=== PATIENT | male | born 1945 | race Caucasian/White ===

== ENCOUNTER 2018-07-23 08:54 | Outpatient (REF) | payer SELFPAY ==
[2018-07-23 09:56] LABS: Abs Immature Grans 0.04 k/cumm (0.0-0.09); Absolute Basophil Count 0.06 k/cumm (0.0-0.2); Absolute Eosinophil Count 0.33 k/cumm (0.0-0.7); Absolute Lymphocyte Count 1.45 k/cumm (1.2-3.4); Absolute Monocyte Count 0.99 k/cumm (0.11-0.7); Basophils % 0.5; HCT 44.2 % (40.0-50.0); Immature Grans % 0.4; Lymphocytes % 13.1; Mean Corp. HGB Concentration 31.7 g/dL (32.0-36.0); Mean Corpuscular Volume 91.5 fL (80-95); Mean Platelet Volume 10.8 fL (8.0-11.0); Monocytes % 8.9; Neutrophils % 74.1; Platelet Count 180 x1000/uL (130-400); RBC 4.83 m/cumm (4.50-6.00); RBC Distribution Width 15.1 % (11.8-14.1); White Blood Cell Count 11.07 k/cumm (4.4-10.8)
[2018-07-23 09:58] LABS: Anion Gap 9.8 mmol/L (3-11); BUN 33 mg/dL (7-18); CO2 29.2 mmol/L (21.0-32.0); CREATININE 1.69 mg/dL (0.70-1.30); Calcium 9.2 mg/dL (8.5-10.1); Chloride 101 mmol/L (98-107); Estimated GFR 40.32 (mL/min/1.73m2); Glucose 261 mg/dL (70-100); Potassium 4.2 mmol/L (3.5-5.1); Sodium 140 mmol/L (136-145)
== END 2018-07-23 09:14 ==
LOC: LBN 08:54
PROVIDERS: Visit Provider Family Medicine
DX: E11.9 Type 2 diabetes mellitus without complications (principal); I10 Essential (primary) hypertension; F33.9 Major depressive disorder, recurrent, unspecified; N18.9 Chronic kidney disease, unspecified
CPT/HCPCS: 80048; 85025

== ENCOUNTER 2018-09-21 10:57 | Inpatient (IN) | payer OTHER, SELFPAY ==
[2018-09-21] VITALS (13 sets, daily range): BP systolic 127–165; BP diastolic 40–63; PULSE 56–75; RESP 14–27; TEMP 36.2–36.6; O2SAT 88–97
[2018-09-21] MEDS: Normal Saline 1,000 ML 125 ML IV (11:05)
[2018-09-21] MEDS: Ondansetron 4 MG/2 ML VIAL (11:20)
--- NOTE | 2018-09-21 11:28 | DI.CT_ITS ---
SYMPTOMS/DIAGNOSIS: BLOODY DIARRHEA WITH NAUSEA/VOMITING CT OF THE ABDOMEN AND PELVIS: Images were performed after oral contrast. Comparison is made with July,. There is wall thickening of the distal transverse colon through mid descending colon. The findings could represent ischemic versus infectious or inflammatory colitis. There is no evidence of obstruction. The appendix appears normal. There is no small bowel dilatation or inflammation. The lung bases show minimal dependent changes. Stones are seen in the dependent portion of the gallbladder. The spleen, adrenals and kidneys are unremarkable. The pancreas appears atrophic. Aorta is normal in diameter and shows calcification. The bladder is unremarkable. There is fat within both inguinal canals. There is a small umbilical hernia containing fat. IMPRESSION: Thickening of the wall of the mid transverse through proximal descending colon consistent with colitis. Cholelithiasis is noted. There is no evidence of acute cholecystitis.
--- NOTE | 2018-09-21 11:32 | W.ED.GENAD ---
Discharge Plan Disposition Patient Disposition: [facility] INPATIENT Condition: Improving Discharge Details Chief Complaint: Nausea/Vomit/Diar Reason For Visit: COLITIS Admit Date/Time: 09/21/18 18:14 Admit Provider: Miguel Melendrez Attending Provider: Miguel Melendrez Primary Care Provider: [facility] ED Provider: Tammy Peres Discharge Data Discharge Date/Time-TO BE ENTERED AT DEPARTURE: 09/21/18 19:23 Medical Decision Making <Edil Schmidt NP - Last Filed: 09/23/18 09:28> History and presentation looks allot like worsening GI bleed. Differential is broad. Will Start IV, environmental monitoring technician, Protonix, and fluids. Will CT abdomen and labs for diagnostics. Nurse reported patient had moderate to large pure bloody stool. He c/o pain, will provide morphine for the pain. Will cover elevated glucose over 300 with 10 units of regular insulin SQ. Labs are remarkable for elevated WBC 18 with shift, NA 132, Glucose 382, Type and screen complete. BUN 48 and Creatnine 1.63 is at baseline. Pt remains hemodynamically stable with most recent B/P 127/40 and pulse of 60. CT scan is pending. Will call [place] for expectance for GI bleed. ECG Data Attestation: I personally reviewed and interpreted this ECG (s) as follows: Interpretation: No acute ST changes. Low voltage. Dr. Segovia confirmed. <WAGNER Huizar - Last Filed: 09/21/18 19:34> Patient was transitioned into my care the patient is being evaluated for nausea, vomiting times 1 week. Laboratory evaluation and initial care was completed by Wesley Schmidt NP. At the time of our patient handoff, CT was pending. I discussed the symptoms with the patient, he is endorsing abdominal cramping. He was given opioids by Wesley Cobos NP which the patient reports he has had little effect on. He has had a few large bloody bowel movements while here. These have been quite loose. No vomiting since being here, patient did receive Protonix and Zofran when he initially arrived. Continues to receive IV Protonix and IV saline. Patient has history of type 2 diabetes and she reports been difficult to control over recent months. He reports he has been taking his Lantus twice daily as prescribed. Despite this, he is reporting that his fasting glucose has been in the high 300s to low 400s frequently. Also has history of acute kidney injury, chronic use of opioids, diastolic dysfunction, exertional dyspnea, central sleep apnea, ischemic cardiomyopathy, CHF, [place]. Patient is on Plavix. Patient is currently endorsing diffuse abdominal cramping. No nausea. CT reviewed by radiologist. They report that the liver is unremarkable no mass. Gallbladder significant for calcified stone within the gallbladder. No very cholecystic inflammation. Pancreas is unremarkable no ductal dilation. Spleen significant for calcified granuloma within the spleen. Adrenals normal no mass. Kidneys and ureters are unremarkable no stones, no hydronephrosis. Stomach and bowel significant for wall thickening involving the distal transverse colon, splenic flexure and proximal portion of the descending colon with mild pericolonic inflammation and trace fluid within the left lateral pericolic gutter consistent with colitis. No bowel obstruction. Unremarkable small bowel. No evidence of appendicitis. Bladder is unremarkable as visualized. Reproductive unremarkable as visualized. Intraperitoneal space is without free air. No acute fracture. Soft tissues are unremarkable. Vasculature significant for moderate atherosclerosis of the abdominal aorta and iliac arteries. No aneurysm. No enlarged lymph nodes Discussed these findings with the patient and his family. The patient's vital signs have been stable here, no orthostatic hypotension noted, and hemoglobin is within normal limits, patient does endorse that he is been feeling dizzy whenever up and ambulatory. He appears quite peril and fatigued. Continues to have a large bloody bowel movements. I feel that admission is appropriate at this time for the patient. [facility], will consult with them as he is requesting that he not be transferred, patient prefers to stay in this facility secondary to close proximity to family. [facility] staff [facility] who advised that the patient secondary to insurance would cover and that he would not need to be transferred to their facility. We did advise that he would need to cover the additional cost that would not be covered by insurance. I discussed this with the patient and his family voiced understanding and wished to remain here Consulted with hospitalist who agrees to admission. He will evaluate the patient. Patient had another bowel movement, we will send this for lactoferrin, C. difficile and Giardia. 6 1 patient was given 4 mg of Zofran which helped with his recurrent nausea. Resting comfortably at this time. Patient admitted to medical surgical unit with Dr. Melendrez is admitting physician HPI <Edil Schmidt NP - Last Filed: 09/23/18 09:28> General Date/Time Provider Initiated Documentation: 09/21/18 11:28. Information obtained by: patient and family. History of Present Illness 73 year old M presents to the emergency department with the chief complaint of bloody diarrhea, described as mild, HPI Narrative: 73 y/o male here with his family with c/o abdominal pain, dizziness, N/V and intermittent bloody diarrhea for last couple weeks. He initially thought he had a cold. His said he started with pharyngitis four weeks ago. He is a and gets his healthcare over at the [facility]. Has missed last couple appointments because he has not feel well. He tells me he feels like shit today. Denies any blood in his vomits but last bloody stool was last night. He has been having to get up multiple times in the night for BM's. He denies CP to me but told the nurse he had nitro this am which he takes all the time. He does tell me he had heart burn this am. Related Data Home Medications Medication Instructions Recorded Confirmed aspirin [Aspir-81] 81 mg PO DAILY 01/08/14 09/21/18 budesonide-formoterol [Symbicort] 2 inh INHALATION BID 01/08/14 09/21/18 insulin glargine [Lantus U-100 45 units IJ HS 01/08/14 09/21/18 Insulin] isosorbide mononitrate [Imdur] 120 mg PO DAILY 01/08/14 09/21/18 potassium chloride 40 meq PO BID 01/08/14 09/21/18 promethazine [Phenadoz] 25 mg MO Q6H PRN #10 supp 01/08/14 09/21/18 tiotropium bromide [Spiriva with 18 mcg INHALATION DAILY 01/08/14 09/21/18 HandiHaler] trazodone 100 mg PO HS 01/08/14 09/21/18 allopurinol 100 mg PO DAILY 10/16/16 09/21/18 insulin glargine [Lantus U-100 45 unit SQ .QAM 10/16/16 09/21/18 Insulin] nitroglycerin 4.9 gm TRANSLINGUAL PRN PRN 10/16/16 09/21/18 atorvastatin [Lipitor] 80 mg PO QPM 09/07/17 09/21/18 bupropion HCl 100 mg PO DAILY 09/07/17 09/21/18 duloxetine [Cymbalta] 60 mg PO BID 09/07/17 09/21/18 losartan 50 mg PO DAILY 09/07/17 09/21/18 sennosides 8.6 mg PO BID PRN PRN 09/07/17 09/21/18 terazosin 4 mg PO HS 09/07/17 09/21/18 clopidogrel [Plavix] 75 mg PO DAILY 10/07/17 09/21/18 spironolactone 25 mg PO DAILY 10/07/17 09/21/18 torsemide 60 mg PO BID 10/07/17 09/21/18 carvedilol 3.125 mg PO BID #60 tab 10/12/17 09/21/18 oxycodone-acetaminophen [Percocet] 10 mg PO QID 09/21/18 09/21/18 Previous Rx's Medication Instructions Recorded promethazine [Phenadoz] 25 mg MO Q6H PRN #10 supp 01/08/14 carvedilol 3.125 mg PO BID #60 tab 10/12/17 Allergies Allergy/AdvReac Type Severity Reaction Status Date / Time Penicillins Allergy Anaphylaxsi Unverified 09/21/18 11:33 s metoprolol AdvReac Very low Unverified 09/21/18 11:33 pulse Review of Systems <Edil Schmidt NP - Last Filed: 09/23/18 09:28> Eyes Reports system reviewed and no additional complaints, except as docu ENT Reports system reviewed and no additional complaints, except as docu and Reports dizziness Cardiovascular Reports lightheadedness and Reports other (heart burn) Respiratory Reports system reviewed and no additional complaints, except as docu Gastrointestinal Reports abdominal pain, Reports hematochezia, Reports heartburn, Reports diarrhea, Reports nausea and Reports vomiting Genitourinary Reports hematuria Musculoskeletal Reports system reviewed and no additional complaints, except as docu Integumentary/Breasts Reports sores Neurologic Reports dizziness Hematologic/Lymphatic Reports as per HPI Exam <Edil Schmidt NP - Last Filed: 09/23/18 09:28> Const General: cooperative, comfortable, no acute distress and ill appearing (pale) acutely Nutritional Appearance: obese Orientation: alert, awake and oriented x3 HENMT Head: atraumatic Ears: hearing grossly normal bilaterally and external ears normal General nose exam: external nose normal and nares normal Mouth: lip normal, tongue normal and moist mucous membranes abnormal (dry) Eyes General: appearance normal, both eyes and all related structures Neck Neck: full ROM and no lymphadenopathy Resp Effort & Inspection: normal respiratory effort Auscultation: clear to auscultation bilaterally Cardio Rate: regular rate Rhythm: regular rhythm Heart Sounds: S1 normal, S2 normal and no murmurs GI Inspection: large pannus and obesity Palpation: soft and tender in the LUQ and in the RUQ Auscultation: normal bowel sounds Back/Spine/Pelvis Back: no CVA tenderness Thoracic/Lumbar Spine: thoracic and lumbar spine normal to inspection Skin General skin exam: no rashes or lesions noted Neuro General: alert, awake and oriented x3 Extrem General: normal to inspection, full ROM and normal capillary refill Psych Appearance: grossly normal Speech and Movement: speech and movement normal Mood: congruent mood Affect: normal affect Attitude: cooperative Thought Process: normal Thought Content: normal Insight: insight good Judgment: judgment good Sign Out <Edil Schmidt NP - Last Filed: 09/23/18 09:28> Sign Out Data: Sign Out Comment: Discussed with Tammy LIRA she agrees to disposition patient. Last updated by Edil Schmidt NP at 09/21/18 16:23
[2018-09-21] MEDS: Pantoprazole 40 MG VIAL 80 MG IVP (11:40)
[2018-09-21] MEDS: Omnipaque 350 MG/ML 50 ML BTL IJ (11:47)
[2018-09-21] MEDS: Breeza Beverage 473 ML BTL PO (11:48)
--- NOTE | 2018-09-21 11:51 | ED.GENADUL_ITS ---
Discharge Plan Disposition Patient Disposition: [facility] INPATIENT Condition: Improving Discharge Details Chief Complaint: Nausea/Vomit/Diar Reason For Visit: COLITIS Admit Date/Time: 09/21/18 18:14 Admit Provider: Miguel Melendrez Attending Provider: Miguel Melendrez Primary Care Provider: [facility] ED Provider: Tammy Peres Discharge Data Discharge Date/Time-TO BE ENTERED AT DEPARTURE: 09/21/18 19:23 Medical Decision Making <Edil Schmidt NP - Last Filed: 09/23/18 09:28> History and presentation looks allot like worsening GI bleed. Differential is broad. Will Start IV, monitoring specialist, Protonix, and fluids. Will CT abdomen and labs for diagnostics. Nurse reported patient had moderate to large pure bloody stool. He c/o pain, will provide morphine for the pain. Will cover elevated glucose over 300 with 10 units of regular insulin SQ. Labs are remarkable for elevated WBC 18 with shift, NA 132, Glucose 382, Type and screen complete. BUN 48 and Creatnine 1.63 is at baseline. Pt remains hemodynamically stable with most recent B/P 127/40 and pulse of 60. CT scan is pending. Will call [place] for expectance for GI bleed. ECG Data Attestation: I personally reviewed and interpreted this ECG (s) as follows: Interpretation: No acute ST changes. Low voltage. Dr. Segovia confirmed. <WAGNER Huizar - Last Filed: 09/21/18 19:34> Patient was transitioned into my care the patient is being evaluated for nausea , vomiting times 1 week. Laboratory evaluation and initial care was completed by Wesley Schmidt NP. At the time of our patient handoff, CT was pending. I discussed the symptoms with the patient, he is endorsing abdominal cramping. He was given opioids by Wesley Cobos NP which the patient reports he has had little effect on. He has had a few large bloody bowel movements while here. These have been quite loose. No vomiting since being here, patient did receive Protonix and Zofran when he initially arrived. Continues to receive IV Protonix and IV saline. Patient has history of type 2 diabetes and she reports been difficult to control over recent months. He reports he has been taking his Lantus twice daily as prescribed. Despite this, he is reporting that his fasting glucose has been in the high 300s to low 400s frequently. Also has history of acute kidney injury, chronic use of opioids, diastolic dysfunction, exertional dyspnea , central sleep apnea, ischemic cardiomyopathy, CHF, [place]. Patient is on Plavix. Patient is currently endorsing diffuse abdominal cramping. No nausea. CT reviewed by radiologist. They report that the liver is unremarkable no mass. Gallbladder significant for calcified stone within the gallbladder. No very cholecystic inflammation. Pancreas is unremarkable no ductal dilation. Spleen significant for calcified granuloma within the spleen. Adrenals normal no mass. Kidneys and ureters are unremarkable no stones, no hydronephrosis. Stomach and bowel significant for wall thickening involving the distal transverse colon, splenic flexure and proximal portion of the descending colon with mild pericolonic inflammation and trace fluid within the left lateral pericolic gutter consistent with colitis. No bowel obstruction. Unremarkable small bowel. No evidence of appendicitis. Bladder is unremarkable as visualized. Reproductive unremarkable as visualized. Intraperitoneal space is without free air. No acute fracture. Soft tissues are unremarkable. Vasculature significant for moderate atherosclerosis of the abdominal aorta and iliac arteries. No aneurysm. No enlarged lymph nodes Discussed these findings with the patient and his family. The patient's vital signs have been stable here, no orthostatic hypotension noted, and hemoglobin is within normal limits, patient does endorse that he is been feeling dizzy whenever up and ambulatory. He appears quite peril and fatigued. Continues to have a large bloody bowel movements. I feel that admission is appropriate at this time for the patient. As [facility], will consult with them as he is requesting that he not be transferred, patient prefers to stay in this facility secondary to close proximity to family. [employer] staff did contact [facility] who advised that the patient secondary to insurance would cover and that he would not need to be transferred to their facility. We did advise that he would need to cover the additional cost that would not be covered by insurance. I discussed this with the patient and his family voiced understanding and wished to remain here Consulted with hospitalist who agrees to admission. He will evaluate the patient. Patient had another bowel movement, we will send this for lactoferrin, C. difficile and Giardia. 6 1 patient was given 4 mg of Zofran which helped with his recurrent nausea. Resting comfortably at this time. Patient admitted to medical surgical unit with Dr. Melendrez is admitting physician HPI <Edil Schmidt NP - Last Filed: 09/23/18 09:28> General Date/Time Provider Initiated Documentation: 09/21/18 11:28 . Information obtained by: patient and family . History of Present Illness 73 year old M presents to the emergency department with the chief complaint of bloody diarrhea, described as mild, HPI Narrative: 73 y/o male here with his family with c/o abdominal pain, dizziness, N/V and intermittent bloody diarrhea for last couple weeks. He initially thought he had a cold. His said he started with pharyngitis four weeks ago. He is a and gets his healthcare [facility] at the [facility]. Has missed last couple appointments because he has not feel well. He tells me he feels like shit today. Denies any blood in his vomits but last bloody stool was last night. He has been having to get up multiple times in the night for BM' s. He denies CP to me but told the nurse he had nitro this am which he takes all the time. He does tell me he had heart burn this am. Related Data Home Medications Medication Instructions Recorded Confirmed aspirin [Aspir-81] 81 mg PO DAILY 01/08/14 09/21/18 budesonide-formoterol [Symbicort] 2 inh INHALATION BID 01/08/14 09/21/18 insulin glargine [Lantus U-100 45 units IJ HS 01/08/14 09/21/18 Insulin] isosorbide mononitrate [Imdur] 120 mg PO DAILY 01/08/14 09/21/18 potassium chloride 40 meq PO BID 01/08/14 09/21/18 promethazine [Phenadoz] 25 mg RI Q6H PRN #10 supp 01/08/14 09/21/18 tiotropium bromide [Spiriva with 18 mcg INHALATION DAILY 01/08/14 09/21/18 HandiHaler] trazodone 100 mg PO HS 01/08/14 09/21/18 allopurinol 100 mg PO DAILY 10/16/16 09/21/18 insulin glargine [Lantus U-100 45 unit SQ .QAM 10/16/16 09/21/18 Insulin] nitroglycerin 4.9 gm TRANSLINGUAL PRN PRN 10/16/16 09/21/18 atorvastatin [Lipitor] 80 mg PO QPM 09/07/17 09/21/18 bupropion HCl 100 mg PO DAILY 09/07/17 09/21/18 duloxetine [Cymbalta] 60 mg PO BID 09/07/17 09/21/18 losartan 50 mg PO DAILY 09/07/17 09/21/18 sennosides 8.6 mg PO BID PRN PRN 09/07/17 09/21/18 terazosin 4 mg PO HS 09/07/17 09/21/18 clopidogrel [Plavix] 75 mg PO DAILY 10/07/17 09/21/18 spironolactone 25 mg PO DAILY 10/07/17 09/21/18 torsemide 60 mg PO BID 10/07/17 09/21/18 carvedilol 3.125 mg PO BID #60 tab 10/12/17 09/21/18 oxycodone-acetaminophen [Percocet] 10 mg PO QID 09/21/18 09/21/18 Previous Rx's Medication Instructions Recorded promethazine [Phenadoz] 25 mg RI Q6H PRN #10 supp 01/08/14 carvedilol 3.125 mg PO BID #60 tab 10/12/17 Allergies Allergy/AdvReac Type Severity Reaction Status Date / Time Penicillins Allergy Anaphylaxsi Unverified 09/21/18 11:33 s metoprolol AdvReac Very low Unverified 09/21/18 11:33 pulse Review of Systems <Edil Schmidt NP - Last Filed: 09/23/18 09:28> Eyes Reports system reviewed and no additional complaints, except as docu ENT Reports system reviewed and no additional complaints, except as docu and Reports dizziness Cardiovascular Reports lightheadedness and Reports other (heart burn) Respiratory Reports system reviewed and no additional complaints, except as docu Gastrointestinal Reports abdominal pain, Reports hematochezia, Reports heartburn, Reports diarrhea, Reports nausea and Reports vomiting Genitourinary Reports hematuria Musculoskeletal Reports system reviewed and no additional complaints, except as docu Integumentary/Breasts Reports sores Neurologic Reports dizziness Hematologic/Lymphatic Reports as per HPI Exam <Edil Schmidt NP - Last Filed: 09/23/18 09:28> Const General: cooperative, comfortable, no acute distress and ill appearing (pale) acutely Nutritional Appearance: obese Orientation: alert, awake and oriented x3 HENMT Head: atraumatic Ears: hearing grossly normal bilaterally and external ears normal General nose exam: external nose normal and nares normal Mouth: lip normal, tongue normal and moist mucous membranes abnormal (dry) Eyes General: appearance normal, both eyes and all related structures Neck Neck: full ROM and no lymphadenopathy Resp Effort & Inspection: normal respiratory effort Auscultation: clear to auscultation bilaterally Cardio Rate: regular rate Rhythm: regular rhythm Heart Sounds: S1 normal, S2 normal and no murmurs GI Inspection: large pannus and obesity Palpation: soft and tender in the LUQ and in the RUQ Auscultation: normal bowel sounds Back/Spine/Pelvis Back: no CVA tenderness Thoracic/Lumbar Spine: thoracic and lumbar spine normal to inspection Skin General skin exam: no rashes or lesions noted Neuro General: alert, awake and oriented x3 Extrem General: normal to inspection, full ROM and normal capillary refill Psych Appearance: grossly normal Speech and Movement: speech and movement normal Mood: congruent mood Affect: normal affect Attitude: cooperative Thought Process: normal Thought Content: normal Insight: insight good Judgment: judgment good Sign Out <Edil Schmidt NP - Last Filed: 09/23/18 09:28> Sign Out Data: Sign Out Comment: Discussed with Tammy LIRA she agrees to disposition patient. Last updated by Edil Schmidt NP at 09/21/18 16:23
[2018-09-21 11:53] LABS: Abs Immature Grans 0.08 k/cumm (0.0-0.09); Absolute Basophil Count 0.04 k/cumm (0.0-0.2); Absolute Eosinophil Count 0.04 k/cumm (0.0-0.7); Absolute Lymphocyte Count 1.12 k/cumm (1.2-3.4); Absolute Monocyte Count 1.06 k/cumm (0.11-0.7); Basophils % 0.2; Eosinophils % 0.2; HCT 45.6 % (40.0-50.0); HGB 14.6 g/dL (13.5-17.5); Immature Grans % 0.4; Lymphocytes % 6.2; Mean Corpuscular Hemoglobin 29.1 pg (27.0-33.0); Mean Corpuscular Volume 90.8 fL (80-95); Mean Platelet Volume 10.9 fL (8.0-11.0); Monocytes % 5.9; Neutrophils % 87.1; Platelet Count 192 x1000/uL (130-400); RBC 5.02 m/cumm (4.50-6.00); RBC Distribution Width 14.4 % (11.8-14.1); White Blood Cell Count 18.02 k/cumm (4.4-10.8)
[2018-09-21 12:19] LABS: ALT 19 U/L (12-78); AST 11 U/L (15-37); Albumin 2.8 g/dL (3.4-5.0); Alkaline Phosphatase 102 U/L (46-116); Anion Gap 7.4 mmol/L (3-11); BUN 48 mg/dL (7-18); Bilirubin, Total 0.4 mg/dL (0.2-1.0); CO2 30.6 mmol/L (21.0-32.0); CREATININE 1.63 mg/dL (0.70-1.30); Calcium 9.4 mg/dL (8.5-10.1); Chloride 94 mmol/L (98-107); Estimated GFR 41.92 (mL/min/1.73m2); Glucose 382 mg/dL (70-100); Magnesium 2.1 mg/dL (1.8-2.4); Potassium 4.4 mmol/L (3.5-5.1); Sodium 132 mmol/L (136-145); Total Protein 7.7 g/dL (6.4-8.2); Troponin I 0.05 ng/mL (0.00-0.06)
[2018-09-21] MEDS: PANTOPRAZOLE 80 MG in Normal Saline 100 ML 10 MG IV (12:37)
[2018-09-21] MEDS: Insulin REGULAR-Human 100 UNITS/ML UNIT 10 UNITS SC (14:52)
[2018-09-21] MEDS: MORPHine 10 MG/ML VIAL 4 MG IVP (14:53)
[2018-09-21] MEDS: HYDROmorphone 2 MG/ML VIAL 1 MG IVP ×2 (16:20→19:05)
[2018-09-21 16:29] LABS: Lipase 56 U/L (73-393)
--- NOTE | 2018-09-21 16:30 | DI.VRAD_ITS ---
EXAM: CT Abdomen and Pelvis Without Intravenous Contrast EXAM DATE/TIME: 09/21/2018 4:00 PM CLINICAL HISTORY: 73 years old, male; Signs and symptoms; Other: Bloody diarrhea TECHNIQUE: Axial computed tomography images of the abdomen and pelvis without intravenous contrast. Coronal and sagittal reformatted images were created and reviewed. COMPARISON: CT ABD PELVIS WO CONTRAST 08/22/2015 10:33 PM FINDINGS: Limitations: This examination is limited given the lack of IV contrast. Lower thorax: Dependent changes within the lung bases. ABDOMEN: Liver: Unremarkable. No mass. Gallbladder and bile ducts: Calcified stone within the gallbladder. No pericholecystic inflammation. Pancreas: Unremarkable. No ductal dilation. Spleen: Calcified granuloma within the spleen. Adrenals: Normal. No mass. Kidneys and ureters: Unremarkable. No stones. No hydronephrosis. Stomach and bowel: Wall thickening involving the distal transverse colon, splenic flexure and proximal portion of the descending colon with mild pericolonic inflammation and trace fluid within the left lateral paracolic gutter consistent with colitis. No pneumatosis. No bowel obstruction. Unremarkable small bowel. Appendix: No evidence of appendicitis. PELVIS: Bladder: Unremarkable as visualized. Reproductive: Unremarkable as visualized. ABDOMEN and PELVIS: Intraperitoneal space: No free intraperitoneal air. Bones/joints: No acute fracture. Soft tissues: Unremarkable. Vasculature: Moderate atherosclerosis of the abdominal aorta and iliac arteries. No aneurysm. Lymph nodes: No enlarged lymph nodes. IMPRESSION: 1. Colitis involving the distal portion of the transverse colon, splenic flexure and proximal portion of the descending colon. 2. Cholelithiasis. Dictated and Authenticated by: Zachery Batista MD. Ordering:QUINCY DE LA TORRE MD
[2018-09-21] MEDS: Ondansetron 4 MG/2 ML VIAL IVP (18:16)
--- NOTE | 2018-09-21 18:33 | W.PM.HP.N ---
Date of service: 09/21/18 Time of Service: 18:33 Assessment and Plan (1) Colitis: Current visit: Yes Status: Acute Colitis. Main differential is infectious versus inflammatory. With no prior episodes and acute onset I would favor the former. At any rate will await stool studies and provide general supportive measures including IV fluids and prn antiemetics and analgesics if no diagnosis is forthcoming from stool studies would presumably need colonoscopy. As to the patient's usual medications, will hold diuretics as he appears to be probably somewhat dehydrated. Will hold scheduled insulin and cover with sliding scale. Will also hold antiplatelet agents with ongoing bleeding. History of Present Illness Chief Complaint: Bloody diarrhea Narrative: Patient is a 73-year-old male with multiple medical problems. He comes in with 1 week of bloody diarrhea, approximately 2-3 times per day, associated with some mild diffuse abdominal discomfort. He has some baseline issues with nausea, unclear if this is changed. In the emergency room evaluation of note leukocytosis of 18,[address] scan showing colitis extending from the distal transverse colon to the sigmoid colon patient was admitted for further evaluation and management. There is no history of recent antibiotic use. No prior such episodes. No change in water source and no travel. Past medical history diabetes, chronic pain, congestive heart failure, sleep apnea, coronary artery disease. Allergies to penicillin (anaphylaxis), Lopressor (low pulse). Medications allopurinol 100 daily, aspirin 81 daily Lipitor 80 daily Symbicort, Wellbutrin 100 daily carvedilol 3.125 twice daily, Plavix 75 daily Cymbalta 60 twice daily Lantus insulin 45 units twice daily Imdur 420 daily Cozaar 50 daily as needed sublingual nitroglycerin oxycodone 10 mg 4 times daily potassium 40 mEq twice daily as needed Phenergan Senokot as needed Spironolactone 25 daily Hytrin for at bedtime Spiriva 1 inhalation daily torsemide 60 twice daily trazodone 100 hs Physical exam: Blood pressure 127/40 pulse 60 respirations 18 temp 36.6. HEENT is unremarkable. Neck supple. Lungs clear. Heart regular rate and rhythm without murmurs rubs or gallops. Abdomen shows positive bowel sounds, soft, minimal diffuse tenderness without rebound. and rectal exams are deferred neurological patient is alert and oriented and moves all 4 extremities equally. Laboratory: White count is 18.0 hematocrit 45 platelets 192 sodium 132, potassium 4.4 chloride 94 bicarb 30, BUN 48 creatinine 1.6 glucose 382, stool studies are pending. CT of the abdomen and pelvis as described above. Review of Systems Review of Systems All systems reviewed & are unremarkable except as noted in HPI and below PFSH Social History Smoking/Tobacco Use Status: Former Tobacco Use Meds Home Medications Medication Instructions Recorded Confirmed Type aspirin [Aspir-81] 81 mg PO DAILY 01/08/14 09/21/18 History budesonide-formoterol [Symbicort] 2 inh INHALATION BID 01/08/14 09/21/18 History insulin glargine [Lantus U-100 45 units IJ HS 01/08/14 09/21/18 History Insulin] isosorbide mononitrate [Imdur] 120 mg PO DAILY 01/08/14 09/21/18 History potassium chloride 40 meq PO BID 01/08/14 09/21/18 History promethazine [Phenadoz] 25 mg TN Q6H PRN #10 supp 01/08/14 09/21/18 Rx tiotropium bromide [Spiriva with 18 mcg INHALATION DAILY 01/08/14 09/21/18 History HandiHaler] trazodone 100 mg PO HS 01/08/14 09/21/18 History allopurinol 100 mg PO DAILY 10/16/16 09/21/18 History insulin glargine [Lantus U-100 45 unit SQ .QAM 10/16/16 09/21/18 History Insulin] nitroglycerin 4.9 gm TRANSLINGUAL PRN PRN 10/16/16 09/21/18 History atorvastatin [Lipitor] 80 mg PO QPM 09/07/17 09/21/18 History bupropion HCl 100 mg PO DAILY 09/07/17 09/21/18 History duloxetine [Cymbalta] 60 mg PO BID 09/07/17 09/21/18 History losartan 50 mg PO DAILY 09/07/17 09/21/18 History sennosides 8.6 mg PO BID PRN PRN 09/07/17 09/21/18 History terazosin 4 mg PO HS 09/07/17 09/21/18 History clopidogrel [Plavix] 75 mg PO DAILY 10/07/17 09/21/18 History spironolactone 25 mg PO DAILY 10/07/17 09/21/18 History torsemide 60 mg PO BID 10/07/17 09/21/18 History carvedilol 3.125 mg PO BID #60 tab 10/12/17 09/21/18 Rx oxycodone-acetaminophen [Percocet] 10 mg PO QID 09/21/18 09/21/18 History Allergies Allergy/AdvReac Type Severity Reaction Status Date / Time Penicillins Allergy Anaphylaxsi Unverified 09/21/18 11:33 s metoprolol AdvReac Very low Unverified 09/21/18 11:33 pulse Exam Narrative Exam Narrative: Per HPI Results Labs : 09/21/18 11:40 09/21/18 11:40 Laboratory Results - last 24 hr 09/21/18 09/21/18 09/21/18 11:40 11:40 11:40 WBC 18.02 H RBC 5.02 Hgb 14.6 Hct 45.6 MCV 90.8 MCH 29.1 MCHC 32.0 RDW 14.4 H Plt Count 192 MPV 10.9 Immature Gran % 0.4 Neutrophils % 87.1 Lymphocytes % 6.2 Monocytes % 5.9 Eosinophils % 0.2 Basophils % 0.2 Absolute Neutrophils 15.70 H Absolute Lymphocytes 1.12 L Absolute Monocytes 1.06 H Absolute Eosinophils 0.04 Absolute Basophils 0.04 Sodium 132 L Potassium 4.4 Chloride 94 L Carbon Dioxide 30.6 Anion Gap 7.4 BUN 48 H Creatinine 1.63 H Estimated GFR/1.73 m2 41.92 Glucose 382 H Calcium 9.4 Magnesium 2.1 Total Bilirubin 0.4 AST 11 L ALT 19 Alkaline Phosphatase 102 Troponin I 0.05 Total Protein 7.7 Albumin 2.8 L Lipase Patient ABO/Rh A Positive Antibody Screen Negative 09/21/18 11:40 WBC RBC Hgb Hct MCV MCH MCHC RDW Plt Count MPV Immature Gran % Neutrophils % Lymphocytes % Monocytes % Eosinophils % Basophils % Absolute Neutrophils Absolute Lymphocytes Absolute Monocytes Absolute Eosinophils Absolute Basophils Sodium Potassium Chloride Carbon Dioxide Anion Gap BUN Creatinine Estimated GFR/1.73 m2 Glucose Calcium Magnesium Total Bilirubin AST ALT Alkaline Phosphatase Troponin I Total Protein Albumin Lipase 56 L Patient ABO/Rh Antibody Screen Last Vital Signs Temp 36.6 C 09/21/18 13:59 Pulse 60 09/21/18 13:59 Resp 18 11/27/18 13:59 BP 127/40 L 11/27/18 13:59 Pulse Ox 96 09/21/18 13:59
[2018-09-21] MEDS: Lactated Ringers 1,000 ML 125 ML IV ×2 (18:56→19:04)
[2018-09-21] MEDS: Atorvastatin 40 MG TAB 80 MG PO (21:01)
[2018-09-21] MEDS: oxyCODONE 5 MG TAB PO (21:02)
[2018-09-21] MEDS: DULoxetine 30 MG CAP 60 MG PO (21:03)
[2018-09-21] MEDS: oxyCODONE 5 mg/Acetaminophen 325 mg TAB 1 TAB PO (21:03)
[2018-09-21] MEDS: Carvedilol 3.125 MG TAB PO (21:03)
[2018-09-21] MEDS: traZODone 50 MG TAB 100 MG PO (21:17)
[2018-09-21] MEDS: Terazosin 2 MG CAP 4 MG PO (21:41)
[2018-09-22 00:02] VITALS: BP 133/65; PULSE 66; RESP 15; TEMP 36.6; O2SAT 92
[2018-09-22] MEDS: Insulin Aspart 300 UNITS/3 ML PEN SC ×5 (00:17→21:31)
[2018-09-22] MEDS: Lactated Ringers 1,000 ML 125 ML IV (02:39)
[2018-09-22] MEDS: Ondansetron 4 MG/2 ML VIAL IVP (06:34)
[2018-09-22 07:20] LABS: HCT 42.7 % (40.0-50.0); HGB 13.7 g/dL (13.5-17.5); Mean Corp. HGB Concentration 32.1 g/dL (32.0-36.0); Mean Corpuscular Hemoglobin 29.1 pg (27.0-33.0); Mean Corpuscular Volume 90.7 fL (80-95); Mean Platelet Volume 10.3 fL (8.0-11.0); Platelet Count 176 x1000/uL (130-400); RBC 4.71 m/cumm (4.50-6.00); RBC Distribution Width 14.3 % (11.8-14.1); White Blood Cell Count 14.76 k/cumm (4.4-10.8)
[2018-09-22 07:28] LABS: Anion Gap 8.4 mmol/L (3-11); BUN 35 mg/dL (7-18); CO2 27.6 mmol/L (21.0-32.0); CREATININE 1.11 mg/dL (0.70-1.30); Calcium 9.2 mg/dL (8.5-10.1); Chloride 100 mmol/L (98-107); Glucose 205 mg/dL (70-100); Potassium 4.3 mmol/L (3.5-5.1); Sodium 136 mmol/L (136-145)
[2018-09-22 08:00] VITALS: BP 122/63; PULSE 74; RESP 18; TEMP 37.2; O2SAT 94
[2018-09-22] MEDS: Carvedilol 3.125 MG TAB PO ×2 (09:07→20:26)
[2018-09-22] MEDS: Allopurinol 100 MG TAB PO (09:08)
[2018-09-22] MEDS: oxyCODONE 5 MG TAB PO ×4 (09:08→20:26)
[2018-09-22] MEDS: Losartan 50 MG TAB PO (09:09)
[2018-09-22] MEDS: DULoxetine 30 MG CAP 60 MG PO ×2 (09:09→20:26)
[2018-09-22] MEDS: oxyCODONE 5 mg/Acetaminophen 325 mg TAB 1 TAB PO ×4 (09:09→20:27)
[2018-09-22] MEDS: buPROPion-CR 100 MG TABCR PO (09:10)
[2018-09-22] MEDS: Pantoprazole 40 MG VIAL IVP (09:10)
[2018-09-22] MEDS: Isosorbide Mononitrate 60 MG TABCR 120 MG PO (09:10)
[2018-09-22] MEDS: Spironolactone 25 MG TAB PO (09:10)
[2018-09-22] MEDS: Normal Saline Flush 10 ML SYR IVP ×2 (09:11→20:25)
[2018-09-22] MEDS: Normal Saline 1,000 ML 125 ML IV (09:34)
[2018-09-22 10:15] VITALS: O2SAT 93
[2018-09-22] MEDS: Budesonide/Formoterol 160/4.5 6 GM 60 PUFF INH IH ×2 (10:18→20:25)
--- NOTE | 2018-09-22 10:25 | PDOC.CMIN ---
- If Service Date Differs Date of service: 09/22/18 Time of Service: 10:25 Care Management Initial Assess REASON FOR HOSPITALIZATION:: Colitis PAST MEDICAL HISTORY/PAST SURGICAL HISTORY:: CHF, Ischemic cardiomyopathy, Central sleep apnea, Exertional dyspnea, Diastolic dysfunction, Acute kidney injury, Diabetes type 2, Diabetic peripheral neuropathy PREVIOUS FUNCTIONAL STATUS/SOCIAL/FAMILY SUPPORTS:: Napoleon resides with his Gia in [place]. He states that they have been for 36 years, and that she has four children, all whom reside locally. 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 Napoleon is independent at baseline, he drives, and is able to manage ADL's CURRENT FUNCTIONAL STATUS:: Currently Napoleon is sitting up in his chair watching TV when this expert medical writer visits. He is pleasant and receptive to discussion. ADVANCE DIRECTIVES:: On file - Gia Jiménez is agent, Jane Crow is alternate Has patient been provided with information about the portal?: Yes Did the patient sign up for the portal?: No CODE STATUS:: Full Code INSURANCE COVERAGE / FINANCIAL ISSUES:: Medicare, BCBS, [facility] CURRENT HOME/COMMUNITY SERVICES/EQUIPMENT:: Currently Napoleon has a walker, cane, grab bars, shower seat, and commode at home. He states that he utilizes the cane at baseline. Napoleon also states that he has home health RN 1x/week and telehealth at home. [place]ON spoke with JOLANTA Hsu, in regards to the above. PR[facility] C[facility] PH[facility] POTENTIAL DISCHARGE NEEDS:: F/U appointment with PCP. Resumption of home health RN and telehealth services. PATIENT/FAMILY EDUCATION NEEDS:: Review DC instructions, any limitations, and ongoing DC planning discussion. Discuss 'Ask Me Three' ANTICIPATED BARRIERS TO DISCHARGE:: None identified at this time TRANSPORTATION:: Via private vehicle with daughter PLAN:: Napoleon will return home with a resumption of home health RN services. He will F/U with PCP and plan of care as prescribed. Napoleon's daughter will transport when ready.
--- NOTE | 2018-09-22 10:45 | INITIAL_ITS ---
- If Service Date Differs Date of service: 09/22/18 Time of Service: 10:25 Care Management Initial Assess REASON FOR HOSPITALIZATION:: Colitis PAST MEDICAL HISTORY/PAST SURGICAL HISTORY:: CHF, Ischemic cardiomyopathy, Central sleep apnea, Exertional dyspnea, Diastolic dysfunction, Acute kidney injury, Diabetes type 2, Diabetic peripheral neuropathy PREVIOUS FUNCTIONAL STATUS/SOCIAL/FAMILY SUPPORTS:: Napoleon resides with his Gia in [place]. He states that they have been for 36 years, and that she has four children, all whom reside locally. 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 Napoleon is independent at baseline, he drives, and is able to manage ADL's CURRENT FUNCTIONAL STATUS:: Currently Napoleon is sitting up in his chair watching TV when this staff writer visits. He is pleasant and receptive to discussion. ADVANCE DIRECTIVES:: On file - Gia Jiménez is agent, Jane Crow is alternate Has patient been provided with information about the portal?: Yes Did the patient sign up for the portal?: No CODE STATUS:: Full Code INSURANCE COVERAGE / FINANCIAL ISSUES:: Medicare, BCBS, [facility] CURRENT HOME/COMMUNITY SERVICES/EQUIPMENT:: Currently Napoleon has a walker, cane, grab bars, shower seat, and commode at home. He states that he utilizes the cane at baseline. Napoleon also states that he has home health RN 1x/week and telehealth at home. [place] spoke with JOLANTA Hsu, in regards to the above. [facility] POTENTIAL DISCHARGE NEEDS:: F/U appointment with PCP. Resumption of home health RN and telehealth services. PATIENT/FAMILY EDUCATION NEEDS:: Review DC instructions, any limitations, and ongoing DC planning discussion. Discuss 'Ask Me Three' ANTICIPATED BARRIERS TO DISCHARGE:: None identified at this time TRANSPORTATION:: Via private vehicle with daughter PLAN:: Napoleon will return home with a resumption of home health RN services. He will F/U with PCP and plan of care as prescribed. Napoleon's daughter will transport when ready.
--- NOTE | 2018-09-22 11:41 | CHAPLAIN ---
Napoleon and I remember each other from previous admissions. His was also here as a patient recently. Napoleon said said he hasn't been feeling well for three quarters of a year, no energy, no motivation. I knew something was wrong. He reports he was told today that he has an infection or bleed in his colon. He hopes this is the beginning of figuring out why he hasn't felt well. He has two adult children who live locally and two more, in [facility]. He said all of his children are very supportive. Napoleon's [employer] macie is very important to him and a source of strength and comfort for him.
--- NOTE | 2018-09-22 15:45 | PGE_ITS ---
Date of Service Date of service: 09/22/18 Time of Service: 15:34 Assessment and Plan (1) Colitis: Current visit: Yes Status: Acute Infectious vs. Inflammatory, extending along the majority of the left colon and part of transverse. Fecal Leukocytes expectedly positive. Current C.Diff negative - PCR pending. Stool cultures also sent and pending. If infection ruled out and symptoms continue will likely need scope with biopsy. Discontinue Fluids secondary to Cardiomyopathy, and initiate fluid diet. Holding DAPT and chemical DVT prophylaxis in setting of bleeding. (2) Acute kidney injury (nontraumatic): Current visit: Yes Status: Acute Superimposed on CKD. Resolved with fluid resuscitation. (3) CAD (coronary artery disease): Current visit: Yes Status: Chronic Hx CAD with stents in 2001, CABG X3 in 2007, and DERRICK in 2016 to a graft vessel. Currently appears quiescent. Continue high potency statin, Carvedilol, Long acting Nitrate, prn NTG. Also on Spironolactone given history of cardiomyopathy. DAPT with aspirin and plavix on hold due to bloody diarrhea - will reinitiate soon. (4) Ischemic cardiomyopathy: Current visit: Yes Status: Chronic LVEF 30-35%. Appears mildly dry to euvolemic by exam. Reports sensation of upper abdominal fullness during bouts of CHF exacerbation. Continue Spironolactone, Carvedilol, Torsemide, with carefully monitoring of weight, renal function, and fluid status. Also on High potency statin, with DAPT on hold due to GI bleeding. (5) CHAPARRO (obstructive sleep apnea): Current visit: Yes Status: Chronic Intolerant of CPAP therapy. (6) Diabetes mellitus: Current visit: Yes Status: Chronic Currently with Basal insulin on hold. Continue sliding scale coverage, ADA diet, and reinitiate Insulin when appropriate. (7) DVT prophylaxis: Current visit: Yes Status: Acute SCD's/Teds given active GI Bleed. Subjective Interval history since last seen: 73 year old with a past medical history significant for CAD, ICMP, and IDDM admitted from [facility] Emergency Department on 09/21/2018 with a diagnosis of colitis. Mr. Jiménez has a history of CAD with resultant Ischemic Cardiomyopathy, with an LVEF of 30%. He also has Insulin Dependent DM, diabetic neuropathy, HTN, and dyslipidemia. He has had remote Afib, as well as recurrent pericarditis. The patient presented with a complaint of 1 week of bloody diarrhea, approximately 2 -3 times per day, associated with some mild diffuse abdominal discomfort. He reports ongoing nausea with 'dry gagging', now ongoing for over one month. Evaluation in the emergency room was noteworthy for a leukocytosis of 18,000, and CT scan showing colitis extending from the distal transverse colon to the sigmoid colon. C.Diff was checked and negative. He was referred for admission for further evaluation and treatment. This morning the patient reports some improvement in his diarrhea. No overnight events were reported. No overnight events reported. He remains afebrile. Exam Narrative Exam Narrative: General: Appears comfortable sitting up out of bed in chair, NAD. AAOX3. Neck: Supple. Cardiovascular: Regular, nontachycardic. 3/6 LLSB Murmur appreciated. Pulmonary: Clear to auscultation with crackles, rhonchi, or wheezing Abdomen: +BS, obese in contour. Mild discomfort with palpation of right side of the abdomen Vascular: + b/l LE edema Psych: Normal mood and affect. Objective Objective Clinical Data: Abnormal lab results 09/21/18 09/22/18 09/22/18 Range/Units 11:40 06:45 06:45 WBC 14.76 H (4.4-10.8) k/cumm RDW 14.3 H (11.8-14.1) % BUN 35 H D (7-18) mg/dL Glucose 205 H D (70-100) mg/dL Lipase 56 L (73-393) U/L Vital Signs Temperature 37.2 C 09/22/18 08:00 Temperature Source Tympanic 09/22/18 08:00 Pulse 74 09/22/18 08:00 Pulse Rhythm Regular 09/22/18 09:10 Pulse 56 L 09/21/18 11:50 Respiratory Rate 18 09/22/18 08:00 Respiratory Effort Non-Labored 09/22/18 09:10 Respiratory Depth Normal 09/22/18 09:10 Respiratory Pattern Normal 09/22/18 09:10 Blood Pressure 122/63 09/22/18 08:00 Blood Pressure Mean 85 09/21/18 11:46 Blood Pressure Position Supine 09/21/18 11:23 Pulse Oximetry 94 L 09/22/18 08:00 Oxygen Delivery Method Room Air 09/22/18 08:00 Oxygen Flow Rate 0 09/22/18 08:00 Pain Level 5 09/22/18 12:19 Comment 09/21/18 13:59 Intake & Output 09/21/18 09/22/18 09/22/18 23:59 11:59 23:59 Intake Total 1016.667 / 8349.280 5006.417 / 2785.417 Output Total 650 / 650 600 / 600 300 / 300 Balance 366.667 / 823.715 3013.417 / 2185.417 -300 / -300 Weight 116.573 kg Intake: IV 1016.667 / 1198.124 3074.417 / 1984.417 Oral 800 / 800 Output: Urine 350 / 350 600 / 600 300 / 300 Stool 300 / 300 Other: Urine Color Yellow Yellow Yellow Urine Appearance Clear Clear Clear Urine Odor Normal Stool Occult Blood Positive Stool Characteristics Bloody Voiding Methods Urinal Urinal Urinal Laboratory Results WBC 14.76 k/cumm (4.4-10.8) H 09/22/18 06:45 RBC 4.71 m/cumm (4.50-6.00) 09/22/18 06:45 Hgb 13.7 g/dL (13.5-17.5) 09/22/18 06:45 Hct 42.7 % (40.0-50.0) 09/22/18 06:45 MCV 90.7 fL (80-95) 09/22/18 06:45 MCH 29.1 pg (27.0-33.0) 09/22/18 06:45 MCHC 32.1 g/dL (32.0-36.0) 09/22/18 06:45 RDW 14.3 % (11.8-14.1) H 09/22/18 06:45 Plt Count 176 x1000/uL (130-400) 09/22/18 06:45 MPV 10.3 fL (8.0-11.0) 09/22/18 06:45 Immature Gran % 0.4 09/21/18 11:40 Neutrophils % 87.1 09/21/18 11:40 Lymphocytes % 6.2 09/21/18 11:40 Monocytes % 5.9 09/21/18 11:40 Eosinophils % 0.2 09/21/18 11:40 Basophils % 0.2 09/21/18 11:40 Absolute Neutrophils 15.70 k/cumm (1.2-6.7) H 09/21/18 11:40 Absolute Lymphocytes 1.12 k/cumm (1.2-3.4) L 09/21/18 11:40 Absolute Monocytes 1.06 k/cumm (0.11-0.7) H 09/21/18 11:40 Absolute Eosinophils 0.04 k/cumm (0.0-0.7) 09/21/18 11:40 Absolute Basophils 0.04 k/cumm (0.0-0.2) 09/21/18 11:40 Sodium 136 mmol/L (136-145) 09/22/18 06:45 Potassium 4.3 mmol/L (3.5-5.1) 09/22/18 06:45 Chloride 100 mmol/L (98-107) 09/22/18 06:45 Carbon Dioxide 27.6 mmol/L (21.0-32.0) 09/22/18 06:45 Anion Gap 8.4 mmol/L (3-11) 09/22/18 06:45 BUN 35 mg/dL (7-18) H D 09/22/18 06:45 Creatinine 1.11 mg/dL (0.70-1.30) D 09/22/18 06:45 Estimated GFR/1.73 m2 >= 60.00 (mL/min/1.73m2) 09/22/18 06:45 Glucose 205 mg/dL (70-100) H D 09/22/18 06:45 Calcium 9.2 mg/dL (8.5-10.1) 09/22/18 06:45 Magnesium 2.1 mg/dL (1.8-2.4) 09/21/18 11:40 Total Bilirubin 0.4 mg/dL (0.2-1.0) 09/21/18 11:40 AST 11 U/L (15-37) L 09/21/18 11:40 ALT 19 U/L (12-78) 09/21/18 11:40 Alkaline Phosphatase 102 U/L (46-116) 09/21/18 11:40 Troponin I 0.05 ng/mL (0.00-0.06) 09/21/18 11:40 Total Protein 7.7 g/dL (6.4-8.2) 09/21/18 11:40 Albumin 2.8 g/dL (3.4-5.0) L 09/21/18 11:40 Lipase 56 U/L (73-393) L 09/21/18 11:40 Patient ABO/Rh A Positive 09/21/18 11:40 Antibody Screen Negative 09/21/18 11:40 Objective Narrative Objective Narrative: Exam(s) a CT:CT abdomen & pelvis wo SYMPTOMS/DIAGNOSIS: BLOODY DIARRHEA WITH NAUSEA/VOMITING CT OF THE ABDOMEN AND PELVIS: Images were performed after oral contrast. Comparison is made with July,. There is wall thickening of the distal transverse colon through mid descending colon. The findings could represent ischemic versus infectious or inflammatory colitis. There is no evidence of obstruction. The appendix appears normal. There is no small bowel dilatation or inflammation. The lung bases show minimal dependent changes. Stones are seen in the dependent portion of the gallbladder. The spleen, adrenals and kidneys are unremarkable. The pancreas appears atrophic. Aorta is normal in diameter and shows calcification. The bladder is unremarkable. There is fat within both inguinal canals. There is a small umbilical hernia containing fat. IMPRESSION: Thickening of the wall of the mid transverse through proximal descending colon consistent with colitis. Cholelithiasis is noted. There is no evidence of acute cholecystitis.
[2018-09-22 15:51] VITALS: BP 106/55; PULSE 54; RESP 18; TEMP 36.2; O2SAT 97
[2018-09-22] MEDS: Torsemide 20 MG TAB 60 MG PO (17:39)
[2018-09-22] MEDS: Atorvastatin 40 MG TAB 80 MG PO (20:26)
[2018-09-22] MEDS: traZODone 50 MG TAB 100 MG PO (21:30)
[2018-09-22] MEDS: Terazosin 2 MG CAP 4 MG PO (21:30)
[2018-09-23 00:05] VITALS: BP 113/61; PULSE 57; RESP 18; TEMP 36.4; O2SAT 92
[2018-09-23] MEDS: Normal Saline Flush 10 ML SYR IVP ×3 (06:48→14:57)
[2018-09-23] MEDS: Ondansetron 4 MG/2 ML VIAL IVP (06:48)
[2018-09-23 06:53] VITALS: BP 132/60; PULSE 77; RESP 18; TEMP 36.7; O2SAT 95
[2018-09-23 07:10] VITALS: O2SAT 93
[2018-09-23] MEDS: Budesonide/Formoterol 160/4.5 6 GM 60 PUFF INH IH ×2 (07:13→21:35)
[2018-09-23 07:30] LABS: Absolute Basophil Count 0.02 k/cumm (0.0-0.2); Absolute Eosinophil Count 0.17 k/cumm (0.0-0.7); Absolute Monocyte Count 0.78 k/cumm (0.11-0.7); Basophils % 0.2; Eosinophils % 1.4; HCT 39.4 % (40.0-50.0); HGB 12.8 g/dL (13.5-17.5); Immature Grans % 0.8; Lymphocytes % 8.8; Mean Corp. HGB Concentration 32.5 g/dL (32.0-36.0); Mean Corpuscular Hemoglobin 29.6 pg (27.0-33.0); Mean Corpuscular Volume 91.2 fL (80-95); Mean Platelet Volume 10.2 fL (8.0-11.0); Monocytes % 6.5; Neutrophils % 82.3; Platelet Count 182 x1000/uL (130-400); RBC 4.32 m/cumm (4.50-6.00); RBC Distribution Width 14.1 % (11.8-14.1); White Blood Cell Count 11.98 k/cumm (4.4-10.8)
[2018-09-23 07:33] LABS: Absolute Lymphocyte Count 1.05 k/cumm (1.2-3.4); Absolute Neutrophil Count 9.86 k/cumm (1.2-6.7); Anion Gap 8.5 mmol/L (3-11); BUN 30 mg/dL (7-18); CO2 28.5 mmol/L (21.0-32.0); CREATININE 1.28 mg/dL (0.70-1.30); Calcium 8.3 mg/dL (8.5-10.1); Chloride 100 mmol/L (98-107); Glucose 222 mg/dL (70-100); Potassium 3.6 mmol/L (3.5-5.1); Sodium 137 mmol/L (136-145)
[2018-09-23] MEDS: Losartan 50 MG TAB PO (08:08)
[2018-09-23] MEDS: oxyCODONE 5 mg/Acetaminophen 325 mg TAB 1 TAB PO ×3 (08:09→19:41)
[2018-09-23] MEDS: Allopurinol 100 MG TAB PO (08:09)
[2018-09-23] MEDS: Torsemide 20 MG TAB 60 MG PO ×2 (08:09→17:12)
[2018-09-23] MEDS: Isosorbide Mononitrate 60 MG TABCR 120 MG PO (08:10)
[2018-09-23] MEDS: DULoxetine 30 MG CAP 60 MG PO ×2 (08:10→19:40)
[2018-09-23] MEDS: buPROPion-CR 100 MG TABCR PO (08:10)
[2018-09-23] MEDS: oxyCODONE 5 MG TAB PO ×4 (08:11→21:37)
[2018-09-23] MEDS: Carvedilol 3.125 MG TAB PO ×2 (08:11→19:41)
[2018-09-23] MEDS: Spironolactone 25 MG TAB PO (08:11)
[2018-09-23] MEDS: Pantoprazole 40 MG VIAL IVP (08:12)
[2018-09-23] MEDS: Insulin Aspart 300 UNITS/3 ML PEN SC ×4 (08:13→21:39)
[2018-09-23] MEDS: Potassium Chloride 20 MEQ TABCR 40 MEQ PO ×2 (09:49→19:41)
[2018-09-23 11:04] LABS: Result Negative; Specimen Description Feces
[2018-09-23 11:05] LABS: Campylobacter PCR SEE COMMENTS; Salmonella PCR SEE COMMENTS; Shiga Toxin PCR SEE COMMENTS; Shigella/Enteroinvasive Ecoli SEE COMMENTS
--- NOTE | 2018-09-23 11:58 | PHARADMIT ---
Admission Pharmacy Clinical Review COLITIS Code Status Full Code Current Weight Wgt-117.7 kg Renally Cleared and Narrow Therapeutic Index Meds CrCl~56 mL/min Meds-OK QTc Value / Action Taken QTc-435 na BP Control, Fever BP- 132/60 Tmax- 36.7C Electrolytes reviewed Na- 137 K+3.6 Mag-2.1 DVT Prophylaxis None Opiate Usage / Scheduled Bowel Regimen Ordered Yes No Plt/SCr for Heparin / Enoxaparin Plts- 182 SCr-1.28 INR for Warfarin NA H/H stable, WBC/Bands H&H- 12.8/39.4 WBC- 11.98 Antibiotic appropriateness NONE Cultures and Sensitivities C-Diff- neg, Lactoferrin- Positive Surgical ABX d/c within 24 hr NA DM control / Insulin Dosing BG-222 Aspart Heart Failure (Check EF%) (ESTRELLA's, B-Block, Diuretics) Coreg,Losartan, NTG, Imdur, Spironolactone, Hytrin, Torsemide IV to PO Switch nO Home Meds Reviewed yES Home Meds Not Ordered Phenergan Supp, Lantus, PlAVIX Comments
--- NOTE | 2018-09-23 12:27 | CMPROGNOTE_ITS ---
- If Service Date Differs Date of service: 09/23/18 Time of Service: 12:26 Care Management Progress Note S/O: CM met with Napoleon at the bedside A:Napoleon is a 73 year old male that was admitted with Colitis P:Napoleon will return home with a resumption of home health RN services. He will F/ U with PCP and plan of care as prescribed. Napoleon's daughter will transport when ready.
--- NOTE | 2018-09-23 13:43 | PGE_ITS ---
Date of Service Date of service: 09/23/18 Time of Service: 13:37 Assessment and Plan (1) Colitis: Current visit: Yes Status: Acute Infectious vs. Inflammatory, extending along the majority of the left colon and part of transverse. Fecal Leukocytes expectedly positive. Current C.Diff negative - PCR also negative. Stool cultures reporting as negative as well. Symptoms appear improving, but with continued blood and some diarrhea - if not resolved will likely need scope with biopsy. Plan on official GI Consult tomorrow. No evidence of acidosis by labs - ischemic bowel less likely. Discontinued Fluids secondary to Cardiomyopathy. Patient is reportedly hungry - will advance diet as tired. Holding DAPT and chemical DVT prophylaxis in setting of bleeding, but plan on reinitiating ASA/Plavix tomorrow if Hgb continues to be stable. (2) Acute kidney injury (nontraumatic): Current visit: Yes Status: Acute Superimposed on CKD. Resolved with fluid resuscitation. (3) CAD (coronary artery disease): Current visit: Yes Status: Chronic Hx CAD with stents in 2001, CABG X3 in 2007, and DERRICK in 2017 to a graft vessel. Currently appears quiescent. Continue high potency statin, Carvedilol, Long acting Nitrate, prn NTG. Also on Spironolactone given history of cardiomyopathy. DAPT with aspirin and plavix on hold due to bloody diarrhea - will reinitiate soon. (4) Ischemic cardiomyopathy: Current visit: Yes Status: Chronic LVEF 30-35%. Appears euvolemic by exam. Reports sensation of upper abdominal fullness during bouts of CHF exacerbation. Continue Spironolactone, Carvedilol, Torsemide, with carefully monitoring of weight, renal function, and fluid status. Also on High potency statin, with DAPT on hold due to GI bleeding. (5) CHAPARRO (obstructive sleep apnea): Current visit: Yes Status: Chronic Intolerant of CPAP therapy. (6) Diabetes mellitus: Current visit: Yes Status: Chronic Currently with Basal insulin on hold. Continue sliding scale coverage, ADA diet, and reinitiate Insulin when appropriate. (7) DVT prophylaxis: Current visit: Yes Status: Acute SCD's/Teds given active GI Bleed. Subjective Interval history since last seen: 73 year old with a past medical history significant for CAD, ICMP, and IDDM admitted from [facility] Emergency Department on 09/21/2018 with a diagnosis of colitis. Mr. Jiménez has a history of CAD with resultant Ischemic Cardiomyopathy, with an LVEF of 30%. He also has Insulin Dependent DM, diabetic neuropathy, HTN, and dyslipidemia. He has had remote Afib, as well as recurrent pericarditis. The patient presented with a complaint of 1 week of bloody diarrhea, approximately 2 -3 times per day, associated with some mild diffuse abdominal discomfort. He reported ongoing nausea with 'dry gagging', now ongoing for over several months. Evaluation in the emergency room was noteworthy for a leukocytosis of 18 ,000, and CT scan showing colitis extending from the distal transverse colon to the sigmoid colon. C.Diff was checked and negative. He was referred for admission for further evaluation and treatment. This morning the patient reports continued improvement in his diarrhea, but still not resolution. He also continues to have BRBPR. No overnight events were reported. No overnight events reported. He remains afebrile. Exam Narrative Exam Narrative: General: Appears comfortable sitting up out of bed in chair, NAD. AAOX3. Neck: Supple. Cardiovascular: Regular, nontachycardic. 3/6 LLSB Murmur appreciated. Pulmonary: Clear to auscultation with minimal bibasilar crackles, no rhonchi or wheezing Abdomen: +BS, obese in contour. Mild discomfort with palpation of right side of the abdomen now appears resolved. Vascular: + b/l LE edema Psych: Normal mood and affect. Objective Objective Clinical Data: Abnormal lab results 09/23/18 09/23/18 Range/Units 06:28 06:28 WBC 11.98 H (4.4-10.8) k/cumm RBC 4.32 L (4.50-6.00) m/cumm Hgb 12.8 L (13.5-17.5) g/dL Hct 39.4 L (40.0-50.0) % Absolute Neutrophils 9.86 H (1.2-6.7) k/cumm Absolute Lymphocytes 1.05 L (1.2-3.4) k/cumm Absolute Monocytes 0.78 H (0.11-0.7) k/cumm BUN 30 H (7-18) mg/dL Glucose 222 H (70-100) mg/dL Calcium 8.3 L (8.5-10.1) mg/dL Vital Signs Temperature 36.7 C 09/23/18 06:53 Temperature Source Tympanic 09/23/18 06:53 Pulse 77 09/23/18 06:53 Pulse Rhythm Regular 09/23/18 08:00 Pulse 56 L 09/21/18 11:50 Respiratory Rate 18 09/23/18 06:53 Respiratory Effort Non-Labored 09/23/18 08:00 Respiratory Depth Normal 09/23/18 08:00 Respiratory Pattern Normal 09/23/18 08:00 Blood Pressure 132/60 09/23/18 06:53 Blood Pressure Mean 85 09/21/18 11:46 Blood Pressure Position Supine 09/21/18 11:23 Pulse Oximetry 93 L 09/23/18 07:10 Oxygen Delivery Method Room Air 09/23/18 07:10 Oxygen Flow Rate 0 09/23/18 07:10 Pain Level 6 09/23/18 11:55 Comment 09/21/18 13:59 Intake & Output 09/22/18 09/23/18 09/23/18 23:59 11:59 23:59 Intake Total 810 / 810 480 / 480 Output Total 1400 / 1400 1250 / 1250 Balance -590 / -590 -770 / -770 Weight 117.7 kg Intake: IV 30 / 30 Oral 800 / 800 450 / 450 Output: Urine 1400 / 1400 1250 / 1250 Other: Urine Color Yellow Yellow Urine Appearance Clear Clear Urine Odor None Normal Comment pt passed urine in the urinal Emesis Description None Retching Voiding Methods Toilet Urinal Laboratory Results WBC 11.98 k/cumm (4.4-10.8) H 09/23/18 06:28 RBC 4.32 m/cumm (4.50-6.00) L 09/23/18 06:28 Hgb 12.8 g/dL (13.5-17.5) L 09/23/18 06:28 Hct 39.4 % (40.0-50.0) L 09/23/18 06:28 MCV 91.2 fL (80-95) 09/23/18 06:28 MCH 29.6 pg (27.0-33.0) 09/23/18 06:28 MCHC 32.5 g/dL (32.0-36.0) 09/23/18 06:28 RDW 14.1 % (11.8-14.1) 09/23/18 06:28 Plt Count 182 x1000/uL (130-400) 09/23/18 06:28 MPV 10.2 fL (8.0-11.0) 09/23/18 06:28 Immature Gran % 0.8 09/23/18 06:28 Neutrophils % 82.3 09/23/18 06:28 Lymphocytes % 8.8 09/23/18 06:28 Monocytes % 6.5 09/23/18 06:28 Eosinophils % 1.4 09/23/18 06:28 Basophils % 0.2 09/23/18 06:28 Absolute Neutrophils 9.86 k/cumm (1.2-6.7) H 09/23/18 06:28 Absolute Lymphocytes 1.05 k/cumm (1.2-3.4) L 09/23/18 06:28 Absolute Monocytes 0.78 k/cumm (0.11-0.7) H 09/23/18 06:28 Absolute Eosinophils 0.17 k/cumm (0.0-0.7) 09/23/18 06:28 Absolute Basophils 0.02 k/cumm (0.0-0.2) 09/23/18 06:28 Sodium 137 mmol/L (136-145) 09/23/18 06:28 Potassium 3.6 mmol/L (3.5-5.1) 09/23/18 06:28 Chloride 100 mmol/L (98-107) 09/23/18 06:28 Carbon Dioxide 28.5 mmol/L (21.0-32.0) 09/23/18 06:28 Anion Gap 8.5 mmol/L (3-11) 09/23/18 06:28 BUN 30 mg/dL (7-18) H 09/23/18 06:28 Creatinine 1.28 mg/dL (0.70-1.30) 09/23/18 06:28 Estimated GFR/1.73 m2 55.40 (mL/min/1.73m2) 09/23/18 06:28 Glucose 222 mg/dL (70-100) H 09/23/18 06:28 Calcium 8.3 mg/dL (8.5-10.1) L 09/23/18 06:28 Magnesium 2.1 mg/dL (1.8-2.4) 09/21/18 11:40 Total Bilirubin 0.4 mg/dL (0.2-1.0) 09/21/18 11:40 AST 11 U/L (15-37) L 09/21/18 11:40 ALT 19 U/L (12-78) 09/21/18 11:40 Alkaline Phosphatase 102 U/L (46-116) 09/21/18 11:40 Troponin I 0.05 ng/mL (0.00-0.06) 09/21/18 11:40 Total Protein 7.7 g/dL (6.4-8.2) 09/21/18 11:40 Albumin 2.8 g/dL (3.4-5.0) L 09/21/18 11:40 Lipase 56 U/L (73-393) L 09/21/18 11:40 Stool Source (see note) 09/21/18 18:30 Stool Campylobacter PCR See comments 09/21/18 18:30 Stl C.difficile Tox PCR Negative 09/21/18 18:30 Stool Salmonella PCR See comments 09/21/18 18:30 Stool Shigella PCR See comments 09/21/18 18:30 C.difficile Tox Source Feces 09/21/18 18:30 Cryptosporidium/Giardia (see note) 09/21/18 18:30 Shiga Toxin (PCR) See comments 09/21/18 18:30 Parasite Rprt Status (see note) 09/21/18 18:30 Patient ABO/Rh A Positive 09/21/18 11:40 Antibody Screen Negative 09/21/18 11:40
--- NOTE | 2018-09-23 14:21 | CHAPLAIN ---
Napoleon's and daughter were visiting when I stopped in. Napoleon said today he is seeing some progress and is happy about that. I'll continue to visit with him.
[2018-09-23] MEDS: HYDROmorphone 2 MG/ML VIAL 1 MG IVP (14:56)
--- NOTE | 2018-09-23 16:40 | PDOC.CMPRO ---
- If Service Date Differs Date of service: 09/23/18 Time of Service: 16:40 Care Management Progress Note S/O: CM met with Napoleon and his spouse in the room he was sitting up in the chair alert and engaged. He is hopeful he will be discharged home tomorrow. He states he is feeling better. Anticipate no services at this time. A: 73 year old male admitted with Colitis. P:Napoleon will return home with a resumption of home health RN services. He will F/U with PCP and plan of care as prescribed. Napoleon's daughter will transport when ready.
--- NOTE | 2018-09-23 16:52 | CMPROGNOTE_ITS ---
- If Service Date Differs Date of service: 09/23/18 Time of Service: 16:40 Care Management Progress Note S/O: CM met with Napoleon and his spouse in the room he was sitting up in the chair alert and engaged. He is hopeful he will be discharged home tomorrow. He states he is feeling better. Anticipate no services at this time. A: 73 year old male admitted with Colitis. P:Napoleon will return home with a resumption of home health RN services. He will F/ U with PCP and plan of care as prescribed. Napoleon's daughter will transport when ready.
[2018-09-23 18:21] VITALS: BP 111/62; PULSE 64; RESP 18; TEMP 36.7; O2SAT 93
[2018-09-23] MEDS: Atorvastatin 40 MG TAB 80 MG PO (19:40)
[2018-09-23] MEDS: Terazosin 2 MG CAP 4 MG PO (21:37)
[2018-09-23] MEDS: traZODone 50 MG TAB 100 MG PO (21:37)
[2018-09-23] MEDS: Insulin Glargine 300 UNITS/3 ML PEN 15 UNITS SC (21:41)
[2018-09-24 00:52] VITALS: BP 91/55; PULSE 57; RESP 18; TEMP 36.4; O2SAT 97
[2018-09-24 05:51] VITALS: BP 159/77; PULSE 71; RESP 18; TEMP 36.7; O2SAT 95
[2018-09-24 07:40] VITALS: BP 129/64; PULSE 55; RESP 20; TEMP 35.9; O2SAT 95
[2018-09-24 07:45] LABS: Abs Immature Grans 0.09 k/cumm (0.0-0.09); Absolute Basophil Count 0.02 k/cumm (0.0-0.2); Absolute Eosinophil Count 0.14 k/cumm (0.0-0.7); Absolute Lymphocyte Count 1.11 k/cumm (1.2-3.4); Absolute Monocyte Count 0.98 k/cumm (0.11-0.7); Absolute Neutrophil Count 8.71 k/cumm (1.2-6.7); Basophils % 0.2; Eosinophils % 1.3; HCT 41.2 % (40.0-50.0); HGB 13.2 g/dL (13.5-17.5); Immature Grans % 0.8; Mean Corpuscular Hemoglobin 29.1 pg (27.0-33.0); Mean Corpuscular Volume 90.7 fL (80-95); Mean Platelet Volume 10.4 fL (8.0-11.0); Monocytes % 8.9; Neutrophils % 78.8; Platelet Count 196 x1000/uL (130-400); RBC 4.54 m/cumm (4.50-6.00); White Blood Cell Count 11.05 k/cumm (4.4-10.8)
[2018-09-24 08:00] LABS: Anion Gap 7.6 mmol/L (3-11); BUN 28 mg/dL (7-18); CO2 28.4 mmol/L (21.0-32.0); CREATININE 1.39 mg/dL (0.70-1.30); Calcium 8.2 mg/dL (8.5-10.1); Chloride 99 mmol/L (98-107); Estimated GFR 50.37 (mL/min/1.73m2); Glucose 232 mg/dL (70-100); Potassium 3.9 mmol/L (3.5-5.1); Sodium 135 mmol/L (136-145)
[2018-09-24] MEDS: oxyCODONE 5 mg/Acetaminophen 325 mg TAB 1 TAB PO ×2 (08:10→13:19)
[2018-09-24] MEDS: buPROPion-CR 100 MG TABCR PO (08:10)
[2018-09-24] MEDS: Carvedilol 3.125 MG TAB PO (08:10)
[2018-09-24] MEDS: oxyCODONE 5 MG TAB PO ×2 (08:10→13:18)
[2018-09-24] MEDS: Allopurinol 100 MG TAB PO (08:10)
[2018-09-24] MEDS: Insulin Aspart 300 UNITS/3 ML PEN SC ×2 (08:10→12:10)
[2018-09-24] MEDS: Isosorbide Mononitrate 60 MG TABCR 120 MG PO (08:11)
[2018-09-24] MEDS: Insulin Glargine 300 UNITS/3 ML PEN 15 UNITS SC (08:11)
[2018-09-24] MEDS: DULoxetine 30 MG CAP 60 MG PO (08:11)
[2018-09-24] MEDS: Potassium Chloride 20 MEQ TABCR 40 MEQ PO (08:11)
[2018-09-24] MEDS: Torsemide 20 MG TAB 60 MG PO (08:11)
[2018-09-24] MEDS: Losartan 50 MG TAB PO (08:11)
[2018-09-24] MEDS: Pantoprazole 40 MG VIAL IVP (08:11)
[2018-09-24] MEDS: Spironolactone 25 MG TAB PO (08:11)
[2018-09-24] MEDS: Normal Saline Flush 10 ML SYR IVP (08:12)
[2018-09-24] MEDS: Potassium Chloride 10 MEQ TABCR PO (10:51)
[2018-09-24] MEDS: Magnesium Oxide 400 MG TAB PO (10:51)
[2018-09-24] MEDS: Budesonide/Formoterol 160/4.5 6 GM 60 PUFF INH IH (10:55)
[2018-09-24] MEDS: Clopidogrel 75 MG TAB PO (12:09)
--- NOTE | 2018-09-24 14:35 | PDOC.CMPRO ---
- If Service Date Differs Date of service: 09/24/18 Time of Service: 14:35 Care Management Progress Note S/O: Napoleon is sitting up in his chair when this resume writer visits this morning. He states that he is hopeful to be discharged home today. CM reviewed CM role and DC plan. Napoleon states that he feels as though he has everything he needs at home at this time. A: 73 y/o female admitted 09/21/18 for Colitis. P: Napoleon will return home with a resumption of home health RN services. His family will transport when medically cleared.
--- NOTE | 2018-09-24 14:45 | CMPROGNOTE_ITS ---
- If Service Date Differs Date of service: 09/24/18 Time of Service: 14:35 Care Management Progress Note S/O: Napoleon is sitting up in his chair when this sql report writer visits this morning. He states that he is hopeful to be discharged home today. CM reviewed CM role and DC plan. Napoleon states that he feels as though he has everything he needs at home at this time. A: 73 y/o female admitted 09/21/18 for Colitis. P: Napoleon will return home with a resumption of home health RN services. His family will transport when medically cleared.
--- NOTE | 2018-09-24 15:58 | W.PM.DS.N ---
DS: Diagnosis Discharge Diagnosis (1) Colitis: Status: Acute (2) Acute kidney injury (nontraumatic): Status: Acute (3) CAD (coronary artery disease): Status: Chronic (4) Ischemic cardiomyopathy: Status: Chronic Discharge Plan Disposition Patient Disposition: HOME Condition: Improving Discharge Details Reason For Visit: COLITIS Admit Date/Time: 09/21/18 18:14 Admit Provider: Miguel Melendrez Attending Provider: Miguel Melendrez Primary Care Provider: [facility] Hospital Course Hospital Course: CC: Bloody Diarrhea HPI: 73 year old with a past medical history significant for CAD, ICMP, and IDDM admitted from [facility] Emergency Department on 09/21/2018 with a diagnosis of colitis. Mr. Jiménez has a history of CAD with resultant Ischemic Cardiomyopathy, with an LVEF of 30%. He also has Insulin Dependent DM, diabetic neuropathy, HTN, and dyslipidemia. He has had remote Afib, as well as recurrent pericarditis. The patient presented with a complaint of 1 week of bloody diarrhea, approximately 2-3 times per day, associated with some mild diffuse abdominal discomfort. He reported ongoing nausea with 'dry gagging', now ongoing for over several months. Evaluation in the emergency room was noteworthy for a leukocytosis of 18,000, and CT scan showing colitis extending from the distal transverse colon to the sigmoid colon. C.Diff was checked and negative. He was referred for admission for further evaluation and treatment. This morning the patient reports continued improvement in his diarrhea, essentially resolved. He is tolerating an advance in diet. Hgb remains stable. No overnight events were reported.No overnight events reported. He remains afebrile. Hospital Course: (1) Colitis: Initial differential included infectious vs. Inflammatory vs. Ischemic, extending along the majority of the left colon and part of transverse. Fecal Leukocytes expectedly positive. Current C.Diff negative - PCR also negative. Stool cultures reporting as negative as well. Symptoms appear to have resolved, and patient is tolerating his diet. Discussed with GI prior to discharge - Given distribution, prior history ischemic colitis is a very likely possibility. Mr. Jiménez needs a GI follow-up with a colonoscopy in a few days. This was discussed with him in detail. (2) Acute kidney injury (nontraumatic): Superimposed on CKD. Resolved with fluid resuscitation. (3) CAD (coronary artery disease): Hx CAD with stents in 2001, CABG X3 in 2007, and DERRICK in 2017 to a graft vessel. Currently appears quiescent. Continue high potency statin, Carvedilol, Long acting Nitrate, prn NTG. Also on Spironolactone given history of cardiomyopathy. DAPT with aspirin and plavix restarted. (4) Ischemic cardiomyopathy: LVEF 30-35%. Appears euvolemic by exam today. Reports sensation of upper abdominal fullness during bouts of CHF exacerbation. Continue Spironolactone, Carvedilol, Torsemide, with carefully monitoring of weight, renal function, and fluid status. Also on High potency statin, with DAPT restarted as well. (5) CHAPARRO (obstructive sleep apnea): Intolerant of CPAP therapy. (6) Diabetes mellitus: Resume home insulin carefully pending ability for PO intake - currently tolerating advance in diet well Home Meds and New Rx's Prescriptions: Continue potassium chloride 10 MEQ capsule, extended release 40 meq PO BID RF: 0 aspirin [Aspir-81] 81 MG tablet,delayed release (DR/EC) 81 mg PO DAILY RF: 0 isosorbide mononitrate [Imdur] 60 MG tablet extended release 24 hr 120 mg PO DAILY RF: 0 budesonide-formoterol [Symbicort] 10.2 GM HFA aerosol inhaler 2 inh Inhalation BID RF: 0 insulin glargine [Lantus U-100 Insulin] 100 UNITS/ML solution 45 units IJ HS RF: 0 trazodone 50 MG tablet 100 mg PO HS RF: 0 tiotropium bromide [Spiriva with HandiHaler] 18 MCG capsule, w/inhalation device 18 mcg Inhalation DAILY RF: 0 promethazine [Phenadoz] 25 MG suppository 25 mg NM Q6H PRN (Reason: Vomiting) Qty: 10 RF: 0 losartan 50 MG tablet 50 mg PO DAILY RF: 0 atorvastatin [Lipitor] 80 MG tablet 80 mg PO QPM RF: 0 sennosides 8.6 MG tablet 8.6 mg PO BID PRN PRNRF: 0 bupropion HCl 100 MG tablet extended release 12 hr 100 mg PO DAILY RF: 0 terazosin 2 MG capsule 4 mg PO HS RF: 0 duloxetine [Cymbalta] 60 MG capsule,delayed release(DR/EC) 60 mg PO BID RF: 0 torsemide 20 MG tablet 60 mg PO BID RF: 0 clopidogrel [Plavix] 75 MG tablet 75 mg PO DAILY RF: 0 spironolactone 25 MG tablet 25 mg PO DAILY RF: 0 carvedilol 3.125 MG tablet 3.125 mg PO BID Qty: 60 RF: 3 oxycodone-acetaminophen [Percocet] 10-325 mg Tablet 10 mg PO QID RF: 0 insulin glargine [Lantus U-100 Insulin] 100 UNITS/ML solution 45 unit SQ .QAM RF: 0 allopurinol 100 MG tablet 100 mg PO DAILY RF: 0 nitroglycerin 4.9 GM spray,non-aerosol 4.9 gm Translingual PRN PRNRF: 0 Discharge Instructions Additional Instructions: Please see your primary care provider within one week of discharge. Please make an appointment with a Vacuum Truck Driver at the [place] - you need a colonoscopy soon. You should be seen over the next few weeks. Stand Alone Forms: Nursing Discharge Form Activity:: No Strenuous Activity Equipment/Supplies:: No Equipment Needed Diet:: Carb Counting Discharge Orders Discharge Orders: Discharge Order (Routine); Ordered 09/24/18 Ordered By: Ayo Estrella Exam Narrative Exam Narrative: General: Appears comfortable sitting up out of bed in chair, NAD. AAOX3. Neck: Supple. Cardiovascular: Regular, nontachycardic. 3/6 LLSB Murmur appreciated. Pulmonary: Clear to auscultation with no crackles, no rhonchi or wheezing Abdomen: +BS, obese in contour. Mild discomfort with palpation of right side of the abdomen now appears resolved. Vascular: + b/l LE edema Psych: Normal mood and affect. DS: Data Vitals/I&O Vitals and I&O: Vital Signs Temperature 35.9 C L 09/24/18 07:40 Temperature Source Tympanic 09/24/18 07:40 Pulse 55 L 09/24/18 07:40 Pulse Rhythm Regular 09/24/18 08:20 Pulse 56 L 09/21/18 11:50 Respiratory Rate 20 09/24/18 07:40 Respiratory Effort 09/24/18 08:20 Respiratory Depth Normal 09/24/18 08:20 Respiratory Pattern Normal 09/24/18 08:20 Blood Pressure 129/64 09/24/18 07:40 Blood Pressure Mean 85 09/21/18 11:46 Blood Pressure Position Supine 09/21/18 11:23 Pulse Oximetry 95 09/24/18 07:40 Oxygen Delivery Method Room Air 09/24/18 07:40 Oxygen Flow Rate 0 09/24/18 07:40 Pain Level 7 09/24/18 13:19 Comment 09/21/18 13:59 Intake & Output 09/23/18 09/24/18 09/24/18 23:59 11:59 23:59 Intake Total 800 / 800 550 / 550 Output Total 1000 / 1000 1425 / 1425 425 / 425 Balance -200 / -200 -875 / -875 -425 / -425 Intake: IV Oral 800 / 800 540 / 540 Output: Urine 1000 / 1000 1425 / 1425 425 / 425 Other: Urine Color Yellow Yellow Yellow Urine Appearance Clear Clear Clear Voiding Methods Toilet Urinal Urinal Completed studies during hospitalization [Text1]: Exam(s) EXAM: CT Abdomen and Pelvis Without Intravenous Contrast EXAM DATE/TIME: 09/21/2018 4:00 PM CLINICAL HISTORY: 73 years old, male; Signs and symptoms; Other: Bloody diarrhea TECHNIQUE: Axial computed tomography images of the abdomen and pelvis without intravenous contrast. Coronal and sagittal reformatted images were created and reviewed. COMPARISON: CT ABD PELVIS WO CONTRAST 08/22/2015 10:33 PM FINDINGS: Limitations: This examination is limited given the lack of IV contrast. Lower thorax: Dependent changes within the lung bases. ABDOMEN: Liver: Unremarkable. No mass. Gallbladder and bile ducts: Calcified stone within the gallbladder. No pericholecystic inflammation. Pancreas: Unremarkable. No ductal dilation. Spleen: Calcified granuloma within the spleen. Adrenals: Normal. No mass. Kidneys and ureters: Unremarkable. No stones. No hydronephrosis. Stomach and bowel: Wall thickening involving the distal transverse colon, splenic flexure and proximal portion of the descending colon with mild pericolonic inflammation and trace fluid within the left lateral paracolic gutter consistent with colitis. No pneumatosis. No bowel obstruction. Unremarkable small bowel. Appendix: No evidence of appendicitis. PELVIS: Bladder: Unremarkable as visualized. Reproductive: Unremarkable as visualized. ABDOMEN and PELVIS: Intraperitoneal space: No free intraperitoneal air. Bones/joints: No acute fracture. Soft tissues: Unremarkable. Vasculature: Moderate atherosclerosis of the abdominal aorta and iliac arteries. No aneurysm. Lymph nodes: No enlarged lymph nodes. IMPRESSION: 1. Colitis involving the distal portion of the transverse colon, splenic flexure and proximal portion of the descending colon. 2. Cholelithiasis. Labs on day of discharge: Labs from last 24 hours 09/24/18 09/24/18 06:15 06:15 WBC 11.05 H RBC 4.54 Hgb 13.2 L Hct 41.2 MCV 90.7 MCH 29.1 MCHC 32.0 RDW 14.0 Plt Count 196 MPV 10.4 Immature Gran % 0.8 Neutrophils % 78.8 Lymphocytes % 10.0 Monocytes % 8.9 Eosinophils % 1.3 Basophils % 0.2 Absolute Neutrophils 8.71 H Absolute Lymphocytes 1.11 L Absolute Monocytes 0.98 H Absolute Eosinophils 0.14 Absolute Basophils 0.02 Sodium 135 L Potassium 3.9 Chloride 99 Carbon Dioxide 28.4 Anion Gap 7.6 BUN 28 H Creatinine 1.39 H Estimated GFR/1.73 m2 50.37 Glucose 232 H Calcium 8.2 L PFSH Diabetes mellitus (Chronic) History of pericarditis (Chronic) CHAPARRO (obstructive sleep apnea) (Chronic) CAD (coronary artery disease) (Chronic) Diabetic peripheral neuropathy associated with type 2 diabetes mellitus (Chronic) Diastolic dysfunction (Chronic) Ischemic cardiomyopathy (Chronic) Social History Smoking/Tobacco Use Status: Former Tobacco Use Social History Smoking/Tobacco Use Status: Former Tobacco Use
--- NOTE | 2018-09-24 16:03 | DSE_ITS ---
DS: Diagnosis Discharge Diagnosis (1) Colitis: Status: Acute (2) Acute kidney injury (nontraumatic): Status: Acute (3) CAD (coronary artery disease): Status: Chronic (4) Ischemic cardiomyopathy: Status: Chronic Discharge Plan Disposition Patient Disposition: HOME Condition: Improving Discharge Details Reason For Visit: COLITIS Admit Date/Time: 09/21/18 18:14 Admit Provider: Miguel Melendrez Attending Provider: Miguel Melendrez Primary Care Provider: [facility] Hospital Course Hospital Course: CC: Bloody Diarrhea HPI: 73 year old with a past medical history significant for CAD, ICMP, and IDDM admitted from [facility] Emergency Department on 09/21/2018 with a diagnosis of colitis. Mr. Jiménez has a history of CAD with resultant Ischemic Cardiomyopathy, with an LVEF of 30%. He also has Insulin Dependent DM, diabetic neuropathy, HTN, and dyslipidemia. He has had remote Afib, as well as recurrent pericarditis. The patient presented with a complaint of 1 week of bloody diarrhea, approximately 2 -3 times per day, associated with some mild diffuse abdominal discomfort. He reported ongoing nausea with 'dry gagging', now ongoing for over several months. Evaluation in the emergency room was noteworthy for a leukocytosis of 18 ,000, and CT scan showing colitis extending from the distal transverse colon to the sigmoid colon. C.Diff was checked and negative. He was referred for admission for further evaluation and treatment. This morning the patient reports continued improvement in his diarrhea, essentially resolved. He is tolerating an advance in diet. Hgb remains stable. No overnight events were reported.No overnight events reported. He remains afebrile. Hospital Course: (1) Colitis: Initial differential included infectious vs. Inflammatory vs. Ischemic, extending along the majority of the left colon and part of transverse. Fecal Leukocytes expectedly positive. Current C.Diff negative - PCR also negative. Stool cultures reporting as negative as well. Symptoms appear to have resolved, and patient is tolerating his diet. Discussed with GI prior to discharge - Given distribution, prior history ischemic colitis is a very likely possibility. Mr. Jiménez needs a GI follow-up with a colonoscopy in a few days. This was discussed with him in detail. (2) Acute kidney injury (nontraumatic): Superimposed on CKD. Resolved with fluid resuscitation. (3) CAD (coronary artery disease): Hx CAD with stents in 2001, CABG X3 in 2007, and DERRICK in 2017 to a graft vessel. Currently appears quiescent. Continue high potency statin, Carvedilol, Long acting Nitrate, prn NTG. Also on Spironolactone given history of cardiomyopathy. DAPT with aspirin and plavix restarted. (4) Ischemic cardiomyopathy: LVEF 30-35%. Appears euvolemic by exam today. Reports sensation of upper abdominal fullness during bouts of CHF exacerbation. Continue Spironolactone, Carvedilol, Torsemide, with carefully monitoring of weight, renal function, and fluid status. Also on High potency statin, with DAPT restarted as well. (5) CHAPARRO (obstructive sleep apnea): Intolerant of CPAP therapy. (6) Diabetes mellitus: Resume home insulin carefully pending ability for PO intake - currently tolerating advance in diet well Home Meds and New Rx's Prescriptions: Continue potassium chloride 10 MEQ capsule, extended release 40 meq PO BID RF: 0 aspirin [Aspir-81] 81 MG tablet,delayed release (DR/EC) 81 mg PO DAILY RF: 0 isosorbide mononitrate [Imdur] 60 MG tablet extended release 24 hr 120 mg PO DAILY RF: 0 budesonide-formoterol [Symbicort] 10.2 GM HFA aerosol inhaler 2 inh Inhalation BID RF: 0 insulin glargine [Lantus U-100 Insulin] 100 UNITS/ML solution 45 units IJ HS RF: 0 trazodone 50 MG tablet 100 mg PO HS RF: 0 tiotropium bromide [Spiriva with HandiHaler] 18 MCG capsule, w/inhalation device 18 mcg Inhalation DAILY RF: 0 promethazine [Phenadoz] 25 MG suppository 25 mg NH Q6H PRN (Reason: Vomiting) Qty: 10 RF: 0 losartan 50 MG tablet 50 mg PO DAILY RF: 0 atorvastatin [Lipitor] 80 MG tablet 80 mg PO QPM RF: 0 sennosides 8.6 MG tablet 8.6 mg PO BID PRN PRNRF: 0 bupropion HCl 100 MG tablet extended release 12 hr 100 mg PO DAILY RF: 0 terazosin 2 MG capsule 4 mg PO HS RF: 0 duloxetine [Cymbalta] 60 MG capsule,delayed release(DR/EC) 60 mg PO BID RF: 0 torsemide 20 MG tablet 60 mg PO BID RF: 0 clopidogrel [Plavix] 75 MG tablet 75 mg PO DAILY RF: 0 spironolactone 25 MG tablet 25 mg PO DAILY RF: 0 carvedilol 3.125 MG tablet 3.125 mg PO BID Qty: 60 RF: 3 oxycodone-acetaminophen [Percocet] 10-325 mg Tablet 10 mg PO QID RF: 0 insulin glargine [Lantus U-100 Insulin] 100 UNITS/ML solution 45 unit SQ .QAM RF: 0 allopurinol 100 MG tablet 100 mg PO DAILY RF: 0 nitroglycerin 4.9 GM spray,non-aerosol 4.9 gm Translingual PRN PRNRF: 0 Discharge Instructions Additional Instructions: Please see your primary care provider within one week of discharge. Please make an appointment with a [facility] at the [place] - you need a colonoscopy soon. You should be seen over the next few weeks. Stand Alone Forms: Nursing Discharge Form Activity:: No Strenuous Activity Equipment/Supplies:: No Equipment Needed Diet:: Carb Counting Discharge Orders Discharge Orders: Discharge Order (Routine); Ordered 09/24/18 Ordered By: Ayo Estrella Exam Narrative Exam Narrative: General: Appears comfortable sitting up out of bed in chair, NAD. AAOX3. Neck: Supple. Cardiovascular: Regular, nontachycardic. 3/6 LLSB Murmur appreciated. Pulmonary: Clear to auscultation with no crackles, no rhonchi or wheezing Abdomen: +BS, obese in contour. Mild discomfort with palpation of right side of the abdomen now appears resolved. Vascular: + b/l LE edema Psych: Normal mood and affect. DS: Data Vitals/I&O Vitals and I&O: Vital Signs Temperature 35.9 C L 09/24/18 07:40 Temperature Source Tympanic 09/24/18 07:40 Pulse 55 L 09/24/18 07:40 Pulse Rhythm Regular 09/24/18 08:20 Pulse 56 L 09/21/18 11:50 Respiratory Rate 20 09/24/18 07:40 Respiratory Effort 09/24/18 08:20 Respiratory Depth Normal 09/24/18 08:20 Respiratory Pattern Normal 09/24/18 08:20 Blood Pressure 129/64 09/24/18 07:40 Blood Pressure Mean 85 09/21/18 11:46 Blood Pressure Position Supine 09/21/18 11:23 Pulse Oximetry 95 09/24/18 07:40 Oxygen Delivery Method Room Air 09/24/18 07:40 Oxygen Flow Rate 0 09/24/18 07:40 Pain Level 7 09/24/18 13:19 Comment 09/21/18 13:59 Intake & Output 09/23/18 09/24/18 09/24/18 23:59 11:59 23:59 Intake Total 800 / 800 550 / 550 Output Total 1000 / 1000 1425 / 1425 425 / 425 Balance -200 / -200 -875 / -875 -425 / -425 Intake: IV Oral 800 / 800 540 / 540 Output: Urine 1000 / 1000 1425 / 1425 425 / 425 Other: Urine Color Yellow Yellow Yellow Urine Appearance Clear Clear Clear Voiding Methods Toilet Urinal Urinal Completed studies during hospitalization [Text1]: Exam(s) EXAM: CT Abdomen and Pelvis Without Intravenous Contrast EXAM DATE/TIME: 09/21/2018 4:00 PM CLINICAL HISTORY: 73 years old, male; Signs and symptoms; Other: Bloody diarrhea TECHNIQUE: Axial computed tomography images of the abdomen and pelvis without intravenous contrast. Coronal and sagittal reformatted images were created and reviewed. COMPARISON: CT ABD PELVIS WO CONTRAST 08/22/2015 10:33 PM FINDINGS: Limitations: This examination is limited given the lack of IV contrast. Lower thorax: Dependent changes within the lung bases. ABDOMEN: Liver: Unremarkable. No mass. Gallbladder and bile ducts: Calcified stone within the gallbladder. No pericholecystic inflammation. Pancreas: Unremarkable. No ductal dilation. Spleen: Calcified granuloma within the spleen. Adrenals: Normal. No mass. Kidneys and ureters: Unremarkable. No stones. No hydronephrosis. Stomach and bowel: Wall thickening involving the distal transverse colon, splenic flexure and proximal portion of the descending colon with mild pericolonic inflammation and trace fluid within the left lateral paracolic gutter consistent with colitis. No pneumatosis. No bowel obstruction. Unremarkable small bowel. Appendix: No evidence of appendicitis. PELVIS: Bladder: Unremarkable as visualized. Reproductive: Unremarkable as visualized. ABDOMEN and PELVIS: Intraperitoneal space: No free intraperitoneal air. Bones/joints: No acute fracture. Soft tissues: Unremarkable. Vasculature: Moderate atherosclerosis of the abdominal aorta and iliac arteries. No aneurysm. Lymph nodes: No enlarged lymph nodes. IMPRESSION: 1. Colitis involving the distal portion of the transverse colon, splenic flexure and proximal portion of the descending colon. 2. Cholelithiasis. Labs on day of discharge: Labs from last 24 hours 09/24/18 09/24/18 06:15 06:15 WBC 11.05 H RBC 4.54 Hgb 13.2 L Hct 41.2 MCV 90.7 MCH 29.1 MCHC 32.0 RDW 14.0 Plt Count 196 MPV 10.4 Immature Gran % 0.8 Neutrophils % 78.8 Lymphocytes % 10.0 Monocytes % 8.9 Eosinophils % 1.3 Basophils % 0.2 Absolute Neutrophils 8.71 H Absolute Lymphocytes 1.11 L Absolute Monocytes 0.98 H Absolute Eosinophils 0.14 Absolute Basophils 0.02 Sodium 135 L Potassium 3.9 Chloride 99 Carbon Dioxide 28.4 Anion Gap 7.6 BUN 28 H Creatinine 1.39 H Estimated GFR/1.73 m2 50.37 Glucose 232 H Calcium 8.2 L PFSH Diabetes mellitus (Chronic) History of pericarditis (Chronic) CHAPARRO (obstructive sleep apnea) (Chronic) CAD (coronary artery disease) (Chronic) Diabetic peripheral neuropathy associated with type 2 diabetes mellitus (Chronic ) Diastolic dysfunction (Chronic) Ischemic cardiomyopathy (Chronic) Social History Smoking/Tobacco Use Status: Former Tobacco Use Social History Smoking/Tobacco Use Status: Former Tobacco Use
--- NOTE | 2018-09-24 16:21 | PDOC.HHF2F ---
1. Encounter Date and Reason I certify that DARREN VALENTINE was seen by Ayo Estrella on 09/24/18 and that I had a [id number] encounter with this patient that meets the physician face to face encounter requirements. 2. Clinical Findings Supporting Skilled Need and Homebound Status I certify that home health services are medically necessary, include either intermittent nursing home and/or physical/speech therapy, and that this patient is homebound in that absences from the home require considerable and taxing effort and are infrequent or of short duration, or are attributable to the need to receive medical care. [X] (a) Attached documentation from encounter provides clinical findings supporting skilled need and homebound status (including what assistance patient requires to leave the home). The encounter with the patient was in whole, or in part, for the following medical condition, which is the primary reason for home health care: COLITIS Senior Living: Check on patient following hospitalization. Ensure [facility] Monitor for abdominal discomfort or return of bloody diarrhea. Physical Therapy: Speech Therapy: Homebound: 3. Certification and Authentication I certify that I composed the above information based on my clinical judgement relating to this patient's medical condition and, if applicable, clinical findings communicated to me by the NPP or inpatient physician who performed the Home Health Referral. All further orders will be obtained through (Community Based Physician - PCP)
== END 2018-09-24 16:43 | disposition home or self-care (01) | DRG 392 ==
LOC: ER 18:53 → MS 19:34
PROVIDERS: Nurse Practitioner Family; Admitting Provider General Practice; Emergency Provider Physician Assistant; Visit Provider Internal Medicine
DX: K52.9 Noninfective gastroenteritis and colitis, unspecified (principal); N17.9 Acute kidney failure, unspecified; I25.10 Atherosclerotic heart disease of native coronary artery without angina pectoris; I25.89 Other forms of chronic ischemic heart disease; Z79.4 Long term (current) use of insulin; E11.42 Type 2 diabetes mellitus with diabetic polyneuropathy; I10 Essential (primary) hypertension; E78.5 Hyperlipidemia, unspecified; E11.22 Type 2 diabetes mellitus with diabetic chronic kidney disease; N18.9 Chronic kidney disease, unspecified; G47.33 Obstructive sleep apnea (adult) (pediatric); Z79.02 Long term (current) use of antithrombotics/antiplatelets
CPT/HCPCS: 36415; 36416; 80048; 80053; 82962; 83690; 85027; 86850; 86900; 86901; 87329; 87505; 93005; 94640; 96361; 96365; 96366; 96372; 96375; 96376; 99222; 99232; 99233; 99239; 99285; 74176; 83630; 83735; 84484; 85025; 87324; 87798; 93010; J2270; J2405; J3490; Q9967

== ENCOUNTER 2018-12-27 07:41 | Emergency (ER) | payer OTHER, SELFPAY ==
[2018-12-27] VITALS (67 sets, daily range): BP systolic 100–161; BP diastolic 54–90; PULSE 56–96; RESP 12–30; TEMP 36.6; O2SAT 90–97
--- NOTE | 2018-12-27 07:39 | DI.RAD_ITS ---
SYMPTOM/DIAGNOSIS: SOB PA AND LATERAL CHEST: Comparison is made with 10/07/17. The heart is again noted to be enlarged. The patient is again noted to be status post CABG. There is minimal blunting at the right costophrenic angle. This could represent a tiny effusion. There are mildly increased basilar densities which could represent mild pulmonary edema versus bilateral infiltrates. IMPRESSION: Cardiomegaly. Question of mild pulmonary edema versus bibasilar pneumonia.
--- NOTE | 2018-12-27 07:53 | W.ED.GENAD ---
Discharge Plan Disposition Patient Disposition: [facility] Condition: Improving Discharge Details Chief Complaint: SOB Clinical Impression: Congestive heart failure, Ischemic cardiomyopathy Reason For Visit: JAIME Primary Care Provider: Nasreen Thapa ED Provider: Damon Moreau Home Meds and New Rx's Prescriptions: No Action potassium chloride 10 MEQ capsule, extended release 40 meq PO BID RF: 0 aspirin [Aspir-81] 81 MG tablet,delayed release (DR/EC) 81 mg PO DAILY RF: 0 isosorbide mononitrate [Imdur] 60 MG tablet extended release 24 hr 120 mg PO DAILY RF: 0 Symbicort 10.2 GM HFA aerosol inhaler 2 inh Inhalation BID RF: 0 Lantus U-100 Insulin 100 UNITS/ML solution 45 units IJ HS RF: 0 trazodone 50 MG tablet 100 mg PO HS RF: 0 Spiriva with HandiHaler 18 MCG capsule, w/inhalation device 18 mcg Inhalation DAILY RF: 0 promethazine [Phenadoz] 25 MG suppository 25 mg FL Q6H PRN (Reason: Vomiting) Qty: 10 RF: 0 losartan 50 MG tablet 50 mg PO DAILY RF: 0 atorvastatin [Lipitor] 80 MG tablet 80 mg PO QPM RF: 0 sennosides 8.6 MG tablet 8.6 mg PO BID PRN PRNRF: 0 bupropion HCl 100 MG tablet extended release 12 hr 100 mg PO DAILY RF: 0 terazosin 2 MG capsule 4 mg PO HS RF: 0 duloxetine [Cymbalta] 60 MG capsule,delayed release(DR/EC) 60 mg PO BID RF: 0 torsemide 20 MG tablet 60 mg PO BID RF: 0 clopidogrel [Plavix] 75 MG tablet 75 mg PO DAILY RF: 0 spironolactone 25 MG tablet 25 mg PO DAILY RF: 0 carvedilol 3.125 MG tablet 3.125 mg PO BID Qty: 60 RF: 3 oxycodone-acetaminophen [Percocet] 10-325 mg Tablet 10 mg PO QID RF: 0 Lantus U-100 Insulin 100 UNITS/ML solution 45 unit SQ .QAM RF: 0 allopurinol 100 MG tablet 100 mg PO DAILY RF: 0 nitroglycerin 4.9 GM spray,non-aerosol 4.9 gm Translingual PRN PRNRF: 0 Medical Decision Making 73-year-old male with ischemic cardiomyopathy, history of diastolic dysfunction, presents with 3 days of dyspnea at home, primarily at rest and somewhat worse with exertion. He has been on oxygen in the past but had weaned off of it, his symptoms improved with application of 2 L en route. He denies chest pain or fever. He has had a cough. He notes a 5 pound weight gain over 3 days He arrives to the with stable vital signs, oxygenating 94% on 2 L. Differential diagnosis includes congestive heart failure, acute coronary syndrome, metabolic or electrolyte abnormality. Patient placed on a gambling monitor, IV access established, empirically given 80 mg of IV Lasix and referred for laboratory testing and chest x-ray. Patient has had a brisk diuresis of 1600 cc urine output. His laboratories are consistent with acute congestive heart failure with a BNP of greater than 5000 and evidence of a troponin leak with a troponin I of 0.09. Chest x-ray with pulmonary edema. Patient is improving, but will require admission. [facility], [facility] Davila, and patient accepted in transfer. Lab Data Lab results reviewed: Yes I reviewed the patient's lab results. Laboratory Results - last 24 hr 12/27/18 12/27/18 12/27/18 07:50 07:50 07:50 WBC RBC Hgb Hct MCV MCH MCHC RDW Plt Count MPV Immature Gran % Neutrophils % Lymphocytes % Monocytes % Eosinophils % Basophils % Absolute Neutrophils Absolute Lymphocytes Absolute Monocytes Absolute Eosinophils Absolute Basophils PT 9.7 INR 1.0 Sodium 139 Potassium 3.9 Chloride 102 Carbon Dioxide 28.4 Anion Gap 8.6 BUN 32 H Creatinine 1.30 Estimated GFR/1.73 m2 54.42 Glucose 237 H Calcium 9.7 Magnesium 1.8 Total Bilirubin 0.4 AST 17 ALT 29 Alkaline Phosphatase 102 Troponin I 0.09 H* NT-Pro-B Natriuret Pep 5475 H Total Protein 7.3 Albumin 3.1 L 12/27/18 07:50 WBC 12.47 H RBC 4.49 L Hgb 12.2 L Hct 38.8 L MCV 86.4 MCH 27.2 MCHC 31.4 L RDW 14.5 H Plt Count 199 MPV 10.2 Immature Gran % 0.3 Neutrophils % 81.0 Lymphocytes % 9.9 Monocytes % 7.6 Eosinophils % 1.0 Basophils % 0.2 Absolute Neutrophils 10.10 H Absolute Lymphocytes 1.23 Absolute Monocytes 0.95 H Absolute Eosinophils 0.12 Absolute Basophils 0.02 PT INR Sodium Potassium Chloride Carbon Dioxide Anion Gap BUN Creatinine Estimated GFR/1.73 m2 Glucose Calcium Magnesium Total Bilirubin AST ALT Alkaline Phosphatase Troponin I NT-Pro-B Natriuret Pep Total Protein Albumin ECG Data Attestation: I personally reviewed and interpreted this ECG (s) as follows: Interpretation: Normal sinus rhythm, the QRS is narrow, there is no ST segment elevation present HPI General Mode of arrival: EMS. Date/Time Provider Initiated Documentation: 12/27/18 07:53. Limitations to Documentation: no limitations. History of Present Illness 73 year old M presents to the emergency department with the chief complaint of Shortness of breath at home times 3 days, improved with oxygen, described as moderate, Quality is described as dull, and is localized to the chest. Patient reports no radiation. Patient started experiencing this day(s) and it has been constant. Rest improves symptom(s), and other things that improve symptom(s), (Oxygen) Movement worsens symptoms . Patient notes cough; denies chest pain and fever/chills. Patient did receive the following treatments prior to arrival, other (Oxygen) Related Data Home Medications Medication Instructions Recorded Confirmed Lantus U-100 Insulin 45 units IJ HS 01/08/14 12/27/18 Spiriva with HandiHaler 18 mcg INHALATION DAILY 01/08/14 12/27/18 Symbicort 2 inh INHALATION BID 01/08/14 12/27/18 aspirin [Aspir-81] 81 mg PO DAILY 01/08/14 12/27/18 isosorbide mononitrate [Imdur] 120 mg PO DAILY 01/08/14 12/27/18 potassium chloride 40 meq PO BID 01/08/14 12/27/18 promethazine [Phenadoz] 25 mg FL Q6H PRN #10 supp 01/08/14 12/27/18 trazodone 100 mg PO HS 01/08/14 12/27/18 Lantus U-100 Insulin 45 unit SQ .QAM 10/16/16 12/27/18 allopurinol 100 mg PO DAILY 10/16/16 12/27/18 nitroglycerin 4.9 gm TRANSLINGUAL PRN PRN 10/16/16 12/27/18 atorvastatin [Lipitor] 80 mg PO QPM 09/07/17 12/27/18 bupropion HCl 100 mg PO DAILY 09/07/17 12/27/18 duloxetine [Cymbalta] 60 mg PO BID 09/07/17 12/27/18 losartan 50 mg PO DAILY 09/07/17 12/27/18 sennosides 8.6 mg PO BID PRN PRN 09/07/17 12/27/18 terazosin 4 mg PO HS 09/07/17 12/27/18 clopidogrel [Plavix] 75 mg PO DAILY 10/07/17 12/27/18 spironolactone 25 mg PO DAILY 10/07/17 12/27/18 torsemide 60 mg PO BID 10/07/17 12/27/18 carvedilol 3.125 mg PO BID #60 tab 10/12/17 12/27/18 oxycodone-acetaminophen [Percocet] 10 mg PO QID 09/21/18 12/27/18 Previous Rx's Medication Instructions Recorded promethazine [Phenadoz] 25 mg FL Q6H PRN #10 supp 01/08/14 carvedilol 3.125 mg PO BID #60 tab 10/12/17 Allergies Allergy/AdvReac Type Severity Reaction Status Date / Time Penicillins Allergy Anaphylaxsi Unverified 12/27/18 08:06 s metoprolol AdvReac Very low Unverified 12/27/18 08:06 pulse General MAIN: 3 Review of Systems Review of Systems 5 pound weight gain and shortness of breath. 8 systems reviewed and otherwise negative [facility] Medical History Diabetes mellitus (Chronic) History of pericarditis (Chronic) CHAPARRO (obstructive sleep apnea) (Chronic) CAD (coronary artery disease) (Chronic) Diabetic peripheral neuropathy associated with type 2 diabetes mellitus (Chronic) Diastolic dysfunction (Chronic) Ischemic cardiomyopathy (Chronic) Social History Smoking and Tabacco status: Former Tobacco Use Exam Narrative Exam Narrative: GEN: awake, alert, oriented 3. Pleasant, well groomed, interactive. HEAD: Normocephalic, atraumatic ENT: Mucous membranes moist, oropharynx unremarkable, External ear exam unremarkable EYES: PERRL, EOMI NECK: Full ROM, no ELISE, no menigismus CHEST/RESP: Nontender, clear to auscultation bilateral, no wheeze/rhonchi/rales appreciated CARDIOVASCULAR: RRR, no murmur, rub arcelia. 2+ Rad pulse bilateral. Distant ABDOMEN: Soft, nontender, no mass. +Bowel sounds EXT: Full ROM, no edema, no rash Neuro: Grossly normal neurologic exam, conversant, interactive. Psych: Speech fluent, thoughts congruent, affect normal
--- NOTE | 2018-12-27 07:56 | ED.GENADUL_ITS ---
Discharge Plan Disposition Patient Disposition: [facility] Condition: Improving Discharge Details Chief Complaint: SOB Clinical Impression: Congestive heart failure, Ischemic cardiomyopathy Reason For Visit: JAIME Primary Care Provider: Nasreen Thapa ED Provider: Damon Moreau Home Meds and New Rx's Prescriptions: No Action potassium chloride 10 MEQ capsule, extended release 40 meq PO BID RF: 0 aspirin [Aspir-81] 81 MG tablet,delayed release (DR/EC) 81 mg PO DAILY RF: 0 isosorbide mononitrate [Imdur] 60 MG tablet extended release 24 hr 120 mg PO DAILY RF: 0 Symbicort 10.2 GM HFA aerosol inhaler 2 inh Inhalation BID RF: 0 Lantus U-100 Insulin 100 UNITS/ML solution 45 units IJ HS RF: 0 trazodone 50 MG tablet 100 mg PO HS RF: 0 Spiriva with HandiHaler 18 MCG capsule, w/inhalation device 18 mcg Inhalation DAILY RF: 0 promethazine [Phenadoz] 25 MG suppository 25 mg MT Q6H PRN (Reason: Vomiting) Qty: 10 RF: 0 losartan 50 MG tablet 50 mg PO DAILY RF: 0 atorvastatin [Lipitor] 80 MG tablet 80 mg PO QPM RF: 0 sennosides 8.6 MG tablet 8.6 mg PO BID PRN PRNRF: 0 bupropion HCl 100 MG tablet extended release 12 hr 100 mg PO DAILY RF: 0 terazosin 2 MG capsule 4 mg PO HS RF: 0 duloxetine [Cymbalta] 60 MG capsule,delayed release(DR/EC) 60 mg PO BID RF: 0 torsemide 20 MG tablet 60 mg PO BID RF: 0 clopidogrel [Plavix] 75 MG tablet 75 mg PO DAILY RF: 0 spironolactone 25 MG tablet 25 mg PO DAILY RF: 0 carvedilol 3.125 MG tablet 3.125 mg PO BID Qty: 60 RF: 3 oxycodone-acetaminophen [Percocet] 10-325 mg Tablet 10 mg PO QID RF: 0 Lantus U-100 Insulin 100 UNITS/ML solution 45 unit SQ .QAM RF: 0 allopurinol 100 MG tablet 100 mg PO DAILY RF: 0 nitroglycerin 4.9 GM spray,non-aerosol 4.9 gm Translingual PRN PRNRF: 0 Medical Decision Making 73-year-old male with ischemic cardiomyopathy, history of diastolic dysfunction, presents with 3 days of dyspnea at home, primarily at rest and somewhat worse with exertion. He has been on oxygen in the past but had weaned off of it, his symptoms improved with application of 2 L en route. He denies chest pain or fever. He has had a cough. He notes a 5 pound weight gain over 3 days He arrives to the with stable vital signs, oxygenating 94% on 2 L. Differential diagnosis includes congestive heart failure, acute coronary syndrome, metabolic or electrolyte abnormality. Patient placed on a quality assurance monitor chassis, IV access established, empirically given 80 mg of IV Lasix and referred for laboratory testing and chest x-ray. Patient has had a brisk diuresis of 1600 cc urine output. His laboratories are consistent with acute congestive heart failure with a BNP of greater than 5000 and evidence of a troponin leak with a troponin I of 0.09. Chest x-ray with pulmonary edema. Patient is improving, but will require admission. [facility], and patient accepted in transfer. Lab Data Lab results reviewed: Yes I reviewed the patient's lab results. Laboratory Results - last 24 hr 12/27/18 12/27/18 12/27/18 07:50 07:50 07:50 WBC RBC Hgb Hct MCV MCH MCHC RDW Plt Count MPV Immature Gran % Neutrophils % Lymphocytes % Monocytes % Eosinophils % Basophils % Absolute Neutrophils Absolute Lymphocytes Absolute Monocytes Absolute Eosinophils Absolute Basophils PT 9.7 INR 1.0 Sodium 139 Potassium 3.9 Chloride 102 Carbon Dioxide 28.4 Anion Gap 8.6 BUN 32 H Creatinine 1.30 Estimated GFR/1.73 m2 54.42 Glucose 237 H Calcium 9.7 Magnesium 1.8 Total Bilirubin 0.4 AST 17 ALT 29 Alkaline Phosphatase 102 Troponin I 0.09 H* NT-Pro-B Natriuret Pep 5475 H Total Protein 7.3 Albumin 3.1 L 12/27/18 07:50 WBC 12.47 H RBC 4.49 L Hgb 12.2 L Hct 38.8 L MCV 86.4 MCH 27.2 MCHC 31.4 L RDW 14.5 H Plt Count 199 MPV 10.2 Immature Gran % 0.3 Neutrophils % 81.0 Lymphocytes % 9.9 Monocytes % 7.6 Eosinophils % 1.0 Basophils % 0.2 Absolute Neutrophils 10.10 H Absolute Lymphocytes 1.23 Absolute Monocytes 0.95 H Absolute Eosinophils 0.12 Absolute Basophils 0.02 PT INR Sodium Potassium Chloride Carbon Dioxide Anion Gap BUN Creatinine Estimated GFR/1.73 m2 Glucose Calcium Magnesium Total Bilirubin AST ALT Alkaline Phosphatase Troponin I NT-Pro-B Natriuret Pep Total Protein Albumin ECG Data Attestation: I personally reviewed and interpreted this ECG (s) as follows: Interpretation: Normal sinus rhythm, the QRS is narrow, there is no ST segment elevation present HPI General Mode of arrival: EMS . Date/Time Provider Initiated Documentation: 12/27/18 07:53 . Limitations to Documentation: no limitations . History of Present Illness 73 year old M presents to the emergency department with the chief complaint of Shortness of breath at home times 3 days, improved with oxygen, described as moderate, Quality is described as dull, and is localized to the chest. Patient reports no radiation. Patient started experiencing this day(s) and it has been constant. Rest improves symptom(s), and other things that improve symptom(s), (Oxygen) Movement worsens symptoms . Patient notes cough; denies chest pain and fever/chills. Patient did receive the following treatments prior to arrival, other (Oxygen) Related Data Home Medications Medication Instructions Recorded Confirmed Lantus U-100 Insulin 45 units IJ HS 01/08/14 12/27/18 Spiriva with HandiHaler 18 mcg INHALATION DAILY 01/08/14 12/27/18 Symbicort 2 inh INHALATION BID 01/08/14 12/27/18 aspirin [Aspir-81] 81 mg PO DAILY 01/08/14 12/27/18 isosorbide mononitrate [Imdur] 120 mg PO DAILY 01/08/14 12/27/18 potassium chloride 40 meq PO BID 01/08/14 12/27/18 promethazine [Phenadoz] 25 mg MT Q6H PRN #10 supp 01/08/14 12/27/18 trazodone 100 mg PO HS 01/08/14 12/27/18 Lantus U-100 Insulin 45 unit SQ .QAM 10/16/16 12/27/18 allopurinol 100 mg PO DAILY 10/16/16 12/27/18 nitroglycerin 4.9 gm TRANSLINGUAL PRN PRN 10/16/16 12/27/18 atorvastatin [Lipitor] 80 mg PO QPM 09/07/17 12/27/18 bupropion HCl 100 mg PO DAILY 09/07/17 12/27/18 duloxetine [Cymbalta] 60 mg PO BID 09/07/17 12/27/18 losartan 50 mg PO DAILY 09/07/17 12/27/18 sennosides 8.6 mg PO BID PRN PRN 09/07/17 12/27/18 terazosin 4 mg PO HS 09/07/17 12/27/18 clopidogrel [Plavix] 75 mg PO DAILY 10/07/17 12/27/18 spironolactone 25 mg PO DAILY 10/07/17 12/27/18 torsemide 60 mg PO BID 10/07/17 12/27/18 carvedilol 3.125 mg PO BID #60 tab 10/12/17 12/27/18 oxycodone-acetaminophen [Percocet] 10 mg PO QID 09/21/18 12/27/18 Previous Rx's Medication Instructions Recorded promethazine [Phenadoz] 25 mg MT Q6H PRN #10 supp 01/08/14 carvedilol 3.125 mg PO BID #60 tab 10/12/17 Allergies Allergy/AdvReac Type Severity Reaction Status Date / Time Penicillins Allergy Anaphylaxsi Unverified 12/27/18 08:06 s metoprolol AdvReac Very low Unverified 12/27/18 08:06 pulse General MAIN: 3 Review of Systems Review of Systems 5 pound weight gain and shortness of breath. 8 systems reviewed and otherwise negative [facility] Medical History Diabetes mellitus (Chronic) History of pericarditis (Chronic) CHAPARRO (obstructive sleep apnea) (Chronic) CAD (coronary artery disease) (Chronic) Diabetic peripheral neuropathy associated with type 2 diabetes mellitus (Chronic) Diastolic dysfunction (Chronic) Ischemic cardiomyopathy (Chronic) Social History Smoking and Tabacco status: Former Tobacco Use Exam Narrative Exam Narrative: GEN: awake, alert, oriented 3. Pleasant, well groomed, interact kevin. HEAD: Normocephalic, atraumatic ENT: Mucous membranes moist, oropharynx unremarkable, External ear exam unremarkable EYES: PERRL, EOMI NECK: Full ROM, no ELISE, no menigismus CHEST/RESP: Nontender, clear to auscultation bilateral, no wheeze/rhonchi/rales appreciated CARDIOVASCULAR: RRR, no murmur, rub arcelia. 2+ Rad pulse bilateral. Distant ABDOMEN: Soft, nontender, no mass. +Bowel sounds EXT: Full ROM, no edema, no rash Neuro: Grossly normal neurologic exam, conversant, interactive. Psych: Speech fluent, thoughts congruent, affect normal
[2018-12-27 07:58] LABS: Abs Immature Grans 0.04 k/cumm (0.0-0.09); Absolute Eosinophil Count 0.12 k/cumm (0.0-0.7); Absolute Lymphocyte Count 1.23 k/cumm (1.2-3.4); Absolute Monocyte Count 0.95 k/cumm (0.11-0.7); Basophils % 0.2; HCT 38.8 % (40.0-50.0); HGB 12.2 g/dL (13.5-17.5); Immature Grans % 0.3; Lymphocytes % 9.9; Mean Corp. HGB Concentration 31.4 g/dL (32.0-36.0); Mean Corpuscular Hemoglobin 27.2 pg (27.0-33.0); Mean Corpuscular Volume 86.4 fL (80-95); Mean Platelet Volume 10.2 fL (8.0-11.0); Monocytes % 7.6; Platelet Count 199 x1000/uL (130-400); RBC 4.49 m/cumm (4.50-6.00); RBC Distribution Width 14.5 % (11.8-14.1); White Blood Cell Count 12.47 k/cumm (4.4-10.8)
[2018-12-27 07:59] LABS: Absolute Basophil Count 0.02 k/cumm (0.0-0.2)
[2018-12-27] MEDS: Furosemide 100 MG/10 ML VIAL 80 MG IVP (08:00)
[2018-12-27] MEDS: oxyCODONE 5 mg/Acetaminophen 325 mg TAB 1 TAB ×2 (08:00→15:50)
[2018-12-27 08:09] LABS: Prothrombin Time 9.7 sec (9.3-11.0)
[2018-12-27 08:16] LABS: ALT 29 U/L (12-78); AST 17 U/L (15-37); Albumin 3.1 g/dL (3.4-5.0); Alkaline Phosphatase 102 U/L (46-116); Anion Gap 8.6 mmol/L (3-11); BUN 32 mg/dL (7-18); Bilirubin, Total 0.4 mg/dL (0.2-1.0); CO2 28.4 mmol/L (21.0-32.0); Calcium 9.7 mg/dL (8.5-10.1); Chloride 102 mmol/L (98-107); Estimated GFR 54.42 (mL/min/1.73m2); Glucose 237 mg/dL (70-100); Potassium 3.9 mmol/L (3.5-5.1); Sodium 139 mmol/L (136-145); Total Protein 7.3 g/dL (6.4-8.2)
[2018-12-27 08:24] LABS: Magnesium 1.8 mg/dL (1.8-2.4); NT-proBNP 5475 pg/mL
[2018-12-27 08:26] LABS: Troponin I 0.09 ng/mL (0.00-0.06)
[2018-12-27] MEDS: Aspirin 325 MG TAB PO (11:24)
== END 2018-12-27 15:47 | disposition short-term general hospital (02) ==
PROVIDERS: Emergency Provider Emergency Medicine; PCP Nurse Practitioner Primary Care
DX: I50.9 Heart failure, unspecified (principal); I25.5 Ischemic cardiomyopathy; E11.40 Type 2 diabetes mellitus with diabetic neuropathy, unspecified
CPT/HCPCS: 36415; 80053; 93005; 96374; 99285; 71046; 83735; 83880; 84484; 85025; 85610; 93010; 99284

== ENCOUNTER 2022-05-26 16:24 | Inpatient (IN) | payer OTHER, SELFPAY ==
[2022-05-26] VITALS (15 sets, daily range): BP systolic 115–135; BP diastolic 54–81; PULSE 52–63; RESP 14–27; TEMP 36.4–36.6; O2SAT 94–98
--- NOTE | 2022-05-26 16:30 | RT.EKG_ITS ---
APPROVED REPORT Exam: Resting ECG Reason for Exam: tachycardic Patient Location: E HR:58 bpm ECG Measurements Heart Rate 58 AXIS ME 69 P 0 QRSd 114 QRS 15 QT 437 T 239 QTc 429 Conclusion Sinus bradycardia...rate< 60 Incomplete left bundle branch block...QRSd>110mS, terminal axis(-90,-1) Low voltage, extremity leads...all extremity leads <0.5mV Abnormal Electrocardiogram
--- NOTE | 2022-05-26 16:45 | DI.RAD_ITS ---
Exam(s) XR PORTABLE CHEST AP EXAM: XR PORTABLE CHEST AP CLINICAL HISTORY: shortness of breath TECHNIQUE: 2D digital imaging was performed of the chest. Two images were obtained. AP views were obtained. COMPARISON: No exams were available for comparison FINDINGS: MEDIASTINUM: Normal. HEART: Cardiomegaly. Status post CABG. PULMONARY VASCULATURE: Pulmonary venous congestion. LUNGS: Interstitial infiltrates. PLEURAL SPACE: Bilateral pleural effusions, right greater than left. No pneumothorax. BONE:Within normal limits for the patient's age. OTHER FINDINGS:Normal. IMPRESSION: Congestive heart failure. DATA REPOSITORY: RADIATION DOSE DELIVERED:
--- NOTE | 2022-05-26 17:11 | W.ED.GENAD ---
Discharge Plan Disposition Patient Disposition: [facility] INPATIENT Condition: Serious Discharge Details Chief Complaint: Diabetes Clinical Impression: Acute exacerbation of CHF (congestive heart failure) Admit Date/Time: 05/26/22 19:13 Admit Provider: Miguel Melendrez Attending Provider: Miguel Melendrez Primary Care Provider: Nasreen Thapa ED Provider: Luis Segovia Discharge Data Discharge Date/Time-TO BE ENTERED AT DEPARTURE: 05/26/22 20:36 Medical Decision Making 1723 --76-year-old male with multiple medical problems including history of CHF with diastolic dysfunction noted in the past, here with shortness of breath and bilateral lower extremity edema worsening over the past 1 to 2 weeks. Patient is tachypneic with mild respiratory distress, saturating in the upper 80s on room air. Oxygen was applied via nasal cannula and he is now saturating upper 90s on 2 L and breathing more easily. Patient does have rales bilaterally. I am concerned about acute on chronic congestive heart failure. Consider ACS. EKG was reviewed interpreted by me: Please see report, no STEMI, sinus bradycardia 50 bpm, incomplete left bundle branch block, low voltage. Plan to check troponin. Patient is relatively immobile and does not appear to be on any anticoagulants raising potential for DVT and pulmonary embolism. Patient was tachycardic in route and remains tachypneic. I will check D-dimer . Will initiate treatement for CHF with lasix 20meq and place felton cathether given fall risk and inability to ambulate. -- ddimer elevated. CT chest was obtained and interprreted by radiology: IMPRESSION: 1. Examination limited by low lung volumes and patient motion artifact. 2. No evidence of a pulmonary embolism. 3. Cardiomegaly, pulmonary venous congestion and pulmonary interstitial edema consistent with congestive heart failure. 4. Bilateral pleural effusions and subjacent infiltrates which may represent atelectasis.? 5. 1.8 x 3.3 cm soft tissue mass in the superior right mediastinum.? It may be contiguous with the thyroid gland and thyroid ultrasound is recommended.? Adenopathy in the neck cannot be excluded. -- I called and spoke with Dr. Melendrez, discussed ED presentation course including diagnostics, he evaluated the patient bedside and will admit. HPI General Mode of arrival: ambulatory. Date/Time Provider Initiated Documentation: 05/26/22 16:38. Limitations to Documentation: no limitations. Information obtained by: patient and family. HPI Narrative: 76-year-old male with multiple medical problems including history of diabetes, coronary artery disease, diabetic peripheral neuropathy, toe infection right foot requiring amputation, CHF with diastolic dysfunction, ischemic cardiomyopathy, coronary artery disease, presents today with chief complaint of shortness of breath. Patient notes increasing shortness of breath worse with exertion over the past 1 to 2 weeks. Symptoms moderate to severe today. He has associated bilateral lower extremity edema over the past few days. History is somewhat limited as patient poor historian. EMS does note heart rate was in the 160s in route. Patient noting that he is feeling better on nasal cannula oxygen 2 L. He is not typically on oxygen at home. He denies associated chest pain. Related Data Home Medications Medication Instructions Recorded Confirmed aspirin 81 mg tablet,delayed 81 mg PO DAILY 01/08/14 05/26/22 release (Aspir-) budesonide-formoterol HFA 160 2 inh inhalation BID 01/08/14 12/27/18 mcg-4.5 mcg/actuation aerosol inhaler (Symbicort) insulin glargine 100 unit/mL 45 units IJ HS 01/08/14 12/27/18 subcutaneous solution (Lantus U-100 Insulin) isosorbide mononitrate 60 mg 120 mg PO DAILY 01/08/14 12/27/18 tablet,extended release 24 hr (Imdur) potassium chloride 10 mEq 60 meq PO BID 01/08/14 05/26/22 capsule,extended release promethazine 25 mg rectal 25 mg CO Q6H PRN Vomiting #10 supp 01/08/14 12/27/18 suppository (Phenadoz) tiotropium bromide 18 mcg capsule 18 mcg inhalation DAILY 01/08/14 12/27/18 with inhalation device (Spiriva with HandiHaler) trazodone 50 mg tablet 150 mg PO HS 01/08/14 05/26/22 allopurinol 100 mg tablet 200 mg PO DAILY 10/16/16 05/26/22 insulin glargine 100 unit/mL 45 unit SQ .QAM 10/16/16 12/27/18 subcutaneous solution (Lantus U-100 Insulin) nitroglycerin 400 mcg/spray 4.9 gm translingual PRN PRN 10/16/16 12/27/18 translingual atorvastatin 80 mg tablet (Lipitor) 80 mg PO QAM 09/07/17 05/26/22 bupropion HCl 100 mg tablet,12 hr 100 mg PO DAILY 09/07/17 12/27/18 sustained-release duloxetine 60 mg capsule,delayed 60 mg PO BID 09/07/17 12/27/18 release (Cymbalta) sennosides 8.6 mg tablet 8.6 mg PO BID PRN PRN 09/07/17 12/27/18 terazosin 2 mg capsule 4 mg PO HS 09/07/17 12/27/18 clopidogrel 75 mg tablet (Plavix) 75 mg PO DAILY 10/07/17 12/27/18 spironolactone 25 mg tablet 25 mg PO DAILY 10/07/17 12/27/18 torsemide 20 mg tablet 80 mg PO BID 10/07/17 05/26/22 carvedilol 3.125 mg tablet 3.125 mg PO BID ##60 10/12/17 05/26/22 oxycodone-acetaminophen 10 mg-325 10 mg PO QID PRN 09/21/18 05/26/22 mg tablet (Percocet) bupropion HCl 150 mg 24 hr tablet, 150 tab PO DAILY 05/26/22 05/26/22 extended release carboxymethylcellulose sodium 0.5 2 drp QID 05/26/22 05/26/22 % eye drops fluticasone 500 mcg-salmeterol 50 1 inh inhalation BID 05/26/22 05/26/22 mcg/dose blistr powdr for inhalation (Advair Diskus) gabapentin 300 mg capsule 600 mg TID 05/26/22 05/26/22 insulin glargine 100 unit/mL (3 40 unit subcut DAILY 05/26/22 05/26/22 mL) subcutaneous pen (Basaglar KwikPen U-100 Insulin) ipratropium 0.5 mg-albuterol 3 mg 3 ml inhalation Q6H PRN 05/26/22 05/26/22 (2.5 mg base)/3 mL nebulization soln omeprazole 20 mg capsule,delayed 20 mg HS 05/26/22 05/26/22 release sertraline 100 mg tablet 100 mg PO DAILY 05/26/22 05/26/22 tamsulosin 0.4 mg capsule 0.4 mg PO HS 05/26/22 05/26/22 Previous Rx's Medication Instructions Recorded promethazine 25 mg rectal 25 mg CO Q6H PRN Vomiting #10 supp 01/08/14 suppository (Phenadoz) carvedilol 3.125 mg tablet 3.125 mg PO BID ##60 10/12/17 Allergies Allergy/AdvReac Type Severity Reaction Status Date / Time Penicillins Allergy Anaphylaxsi Unverified 05/26/22 20:23 s metoprolol AdvReac Very low Unverified 05/26/22 20:23 pulse General Stated Complaint: Diabetes MAIN: 3 Review of Systems All systems reviewed & are unremarkable except as noted in HPI and below Constitutional Constitutional: Denies fever(s) Cardiovascular Cardiovascular: Reports as per HPI and Denies chest pain Respiratory Respiratory: Reports as per HPI PFSH All Active Problems (Updated 05/30/22 @ 02:13 by Luis Segovia MD) Acute exacerbation of CHF (congestive heart failure) (Acute) Thyroid mass of unclear etiology (Acute) Discharge planning issues (Acute) Wound dehiscence, surgical (Acute) Chronic respiratory failure with hypoxia (Chronic) Pulmonary hypertension (Acute) Acute on chronic systolic CHF (congestive heart failure) (Acute) CHF (congestive heart failure) (Chronic) DVT prophylaxis (Acute) Diabetes mellitus (Chronic) History of pericarditis (Chronic) CHAPARRO (obstructive sleep apnea) (Chronic) CAD (coronary artery disease) (Chronic) Colitis (Acute) Diabetic peripheral neuropathy associated with type 2 diabetes mellitus (Chronic) Acute kidney injury (nontraumatic) (Acute) Abnormal EKG (Acute) Constipation due to pain medication (Chronic) Chronic, continuous use of opioids (Chronic) Diastolic dysfunction (Chronic) Exertional dyspnea (Acute) Ischemic cardiomyopathy (Chronic) Myocardial infarction of inferior wall (Chronic) Social History Smoking/Tobacco Use Status: Former Tobacco Use Tobacco: How many years used: 24 Smoking risk assessment performed?: Yes Alcohol Intake: former Drug use: Never Details: Pt quit alcohol and tobacoo 24 years ago. Do you feel safe at home: Yes Do you feel safe in your relationship?: Yes Exam Const General: cooperative Nutritional Appearance: obese Orientation: alert and awake HENMT Mouth: moist mucous membranes Eyes Conjunctivae: normal conjunctivae Sclera: normal sclerae Neck Neck: trachea midline Resp Effort & Inspection: tachypneic Auscultation: rales bilaterally at the base and no rhonchi Cardio Rate: regular rate and not tachycardic Rhythm: regular rhythm GI Palpation: soft, not firm, no guarding, no masses, not rigid and nontender Other: Anasarca Skin General skin exam: no rashes or lesions noted Neuro General: patient alert, patient awake and tone normal Extrem General: no calf tenderness and edema (2+ pitting) Laterality: bilateral Right lower extremity: foot Details: other (Status post great toe amp, chronic wound, no significant erythema or purulent drainage) Psych Appearance: grossly normal Mental Status: mental status grossly normal Speech and Movement: speech and movement normal Course Vital Signs Vital signs: Vital Signs Temperature 36.5 C 05/26/22 16:32 Pulse 60 05/26/22 16:32 Respiratory Rate 18 05/26/22 16:32 Pulse Oximetry 94 05/26/22 16:32 Temperature 36.5 C 05/26/22 16:32 Temperature Source Temporal Artery Scan 05/26/22 16:32 Pulse 60 05/26/22 16:32 Respiratory Rate 18 05/26/22 16:32 Blood Pressure 127/54 L 05/26/22 16:47 Pulse Oximetry 94 05/26/22 16:32 Oxygen Delivery Method Nasal Cannula 05/26/22 16:32 Oxygen Flow Rate 2 05/26/22 16:32 Pain Level 0 05/26/22 16:32
[2022-05-26] MEDS: Furosemide 20 MG/2 ML VIAL IVP (17:17)
--- NOTE | 2022-05-26 17:17 | NUR.NOTE ---
Nursing Note: Per Luis, admininstrator cashier receptionist at the [place]; patient is part of the [facility] program. As long as family or someone calls within 72hrs of admit then his admission will be paid for. He is eligible to stay at [facility]. Community [facility] notification line [phone]
[2022-05-26 17:21] LABS: Abs Immature Grans 0.03 10^3/uL (0.0-0.06); Absolute Basophil Count 0.04 10^3/uL (0.0-0.2); Absolute Eosinophil Count 0.18 10^3/uL (0.0-0.7); Absolute Lymphocyte Count 1.31 10^3/uL (1.2-3.4); Absolute Monocyte Count 0.52 10^3/uL (0.1-0.8); Basophils % 0.5; HCT 39.4 % (40.0-50.0); HGB 11.5 g/dL (13.5-17.5); Immature Grans % 0.3; Lymphocytes % 14.8; MCH 25.9 pg (27.0-33.0); MCHC 29.2 % (32.0-36.0); MCV 89 fL (80-95); MPV 11.2 fL (8.0-11.0); Monocytes % 5.9; Neutrophils % 76.5; Platelet Count 103 10^3/uL (130-400); RBC 4.44 10^6/uL (4.36-5.78); RDW 18.4 % (11.8-14.1); RDW-SD 58.9 fL; WBC 8.88 10^3/uL (4.4-10.8)
[2022-05-26 17:42] LABS: ALT 29 U/L (16-63); AST 19 U/L (15-37); Albumin 2.4 g/dL (3.4-5.0); Alkaline Phosphatase 281 U/L (46-116); Anion Gap 0.6 mmol/L (3-11); BUN 36 mg/dL (7-18); Bilirubin, Total 0.6 mg/dL (0.2-1.0); CO2 39.4 mmol/L (21.0-32.0); CREATININE 1.5 mg/dL (0.70-1.30); Calcium 8.7 mg/dL (8.5-10.1); Chloride 100 mmol/L (98-107); Estimated GFR 45.75 (mL/min/1.73m2); Glucose 288 mg/dL (74-106); Magnesium 2.1 mg/dL (1.8-2.4); NT-proBNP 25224 pg/mL (<300); Potassium 3.9 mmol/L (3.5-5.1); Sodium 140 mmol/L (136-145); Total Protein 6.5 g/dL (6.4-8.2); Troponin I < 50 ng/L (<or=60)
[2022-05-26 17:57] LABS: D-Dimer 1239 ng/mlFEU (<500)
--- NOTE | 2022-05-26 18:15 | DI.CT_ITS ---
Exam(s) CT CHEST PE CTA EXAM: CT CHEST PE CTA CLINICAL HISTORY: shortness of breath, elevated ddimer. TECHNIQUE: Imaging Protocol: Axial CT angiography was performed with multi-slice acquisition and mu lti-planar and/or 3D reconstructions. CONTRAST MATERIAL: Intravenous: Omnipaque 350 contrast volume:100 mL COMPARISON: CT CT ABDOMEN PELVIS WO from 09/21/2018 CR,XR XR PORTABLE CHEST AP from 05/26/2022 FINDINGS: The examination is limited due to patient motion artifact.. Low lung volumes. Tracheobronchial tree: Patent where visualized. Pulmonary parenchyma: There is near complete consolidation of the right lower lobe and areas of conso lidation involving the dependent portions of both the left lower lobe and the right upper lobe. Ther e is a large right and moderate size left pleural effusion. There is pulmonary venous congestion and interstitial edema. Pulmonary Arteries: No evidence of filling defect to suggest pulmonary emboli. Mediastinum and Nayeli: No dominant adenopathy or fluid collection. The esophagus is unremarkable. Visualized thyroid gland: There is a 1.8 x 3.3 cm soft tissue mass in the superior right mediastinum it appears to be contiguous with the right lobe of the thyroid gland. Thyroid ultrasound should be c onsidered for further evaluation. Pleura: No pneumothorax. Heart: Cardiomegaly. Coronary artery calcifications are present. No pericardial effusion. Aorta: Thoracic aorta non-dilated. Atherosclerosis. The thoracic aorta is not well opacified for vini luation of dissection. Upper abdomen: Unremarkable. Soft tissues: Bilateral gynecomastia. Bones: Within normal limits for the patient's age.Sternal wires are in place. IMPRESSION: 1. Examination limited by low lung volumes and patient motion artifact. 2. No evidence of a pulmonary embolism. 3. Cardiomegaly, pulmonary venous congestion and pulmonary interstitial edema consistent with congest kevin heart failure. 4. Bilateral pleural effusions and subjacent infiltrates which may represent atelectasis. 5. 1.8 x 3.3 cm soft tissue mass in the superior right mediastinum. It may be contiguous with the th yroid gland and thyroid ultrasound is recommended. Adenopathy in the neck cannot be excluded. RADIATION DOSE DELIVERED: 687.72mGy.cm Total DLP DATA REPOSITORY: All CT scans at this facility are submitted to the National Radiology Data Registry (NRDR) Dose Index Registry (DIR) with the [employer] ([employer]). RADIATION OPTIMIZATION: All CT scans at this facility use at least one of these dose optimization te chniques: automated exposure control; mA and/or kV adjustment per patient size (includes targeted exa ms where dose is matched to clinical indication); or iterative reconstruction.
--- NOTE | 2022-05-26 18:17 | DI.VRAD_ITS ---
PROCEDURE INFORMATION: Exam: XR Chest Exam date and time: 05/26/2022 5:29 PM Age: 76 years old Clinical indication: Other: Shortness of breath TECHNIQUE: Imaging protocol: Radiologic exam of the chest. Views: 1 view. COMPARISON: CR XR CHEST 2V PA LATERAL 12/27/2018 8:27 AM FINDINGS: Lungs: Pulmonary vascular congestion and interstitial pulmonary edema. Pleural spaces: Small bilateral pleural effusions, right greater than left. Heart/Mediastinum: Postoperative changes of CABG. Cardiomegaly. Vasculature: Tortuous aorta with calcifications along the arch. Bones/joints: Median sternotomy. Severe right shoulder osteoarthritis. IMPRESSION: Congestive heart failure. Small layering bilateral pleural effusions, right greater than left. Dictated and Authenticated by: Alyssa Todd MD. Ordering:MARY KAY Smith MD
[2022-05-26] MEDS: Omnipaque 350 MG/ML 100 ML BTL IJ (18:27)
--- NOTE | 2022-05-26 19:00 | W.PM.HP.N ---
Date of service: 05/26/22 Time of Service: 19:00 Assessment and Plan Assessment and plan (1) CHF (congestive heart failure): Status: Chronic Assessment and plan: Exacerbation of CHF, precipitant not evident. Will trial 160 mg IV Lasix now, further diuresis as required. Usual meds as is otherwise with addition of SS coverage for DM. Reviewed ADs, family advises he is DNR. History of Present Illness History of Present Illness Chief Complaint: SOB Narrative: 76 male with h/o CHF, DM, recent stay in Rehab following toe amputation, home for 6 days -- here with approx one week of increasing SOB, orthopnea and leg swelling. In ER findings of note for initial O2 sats in 80s on RA (mid 90s 2L), bilateral rales, CXR showing CHF with BNP >12466. EKG w/o acute change, trop negative. Patient was given Lasix 20 IV approx 90 minutes prior to my visit with minimal urine output. Note that home dose is 80 bid. States no change in meds (though family are questioning if he got usual meds while in Rehab, though have no evidence that he did not); and denies dietary changes. Review of Systems Narrative: per HPI PFSH All Active Problems (Updated 05/26/22 @ 19:09 by Miguel Melendrez MD) CHF (congestive heart failure) (Chronic) DVT prophylaxis (Acute) Diabetes mellitus (Chronic) History of pericarditis (Chronic) CHAPARRO (obstructive sleep apnea) (Chronic) CAD (coronary artery disease) (Chronic) Colitis (Acute) Diabetic peripheral neuropathy associated with type 2 diabetes mellitus (Chronic) Acute kidney injury (nontraumatic) (Acute) Abnormal EKG (Acute) Constipation due to pain medication (Chronic) Chronic, continuous use of opioids (Chronic) Diastolic dysfunction (Chronic) Exertional dyspnea (Acute) Ischemic cardiomyopathy (Chronic) Myocardial infarction of inferior wall (Chronic) Social History Smoking/Tobacco Use Status: Former Tobacco Use Tobacco: How many years used: 24 Smoking risk assessment performed?: Yes Alcohol Intake: former Drug use: Never Details: Pt quit alcohol and tobacoo 24 years ago. Do you feel safe at home: Yes Do you feel safe in your relationship?: Yes Meds Allergies and Home Medications Allergies Allergy/AdvReac Type Severity Reaction Status Date / Time Penicillins Allergy Anaphylaxsi Unverified 12/27/18 08:06 s metoprolol AdvReac Very low Unverified 12/27/18 08:06 pulse Home Medications Medication Instructions Recorded Confirmed Type aspirin 81 mg tablet,delayed 81 mg PO DAILY 01/08/14 05/26/22 History release (Aspir-) budesonide-formoterol HFA 160 2 inh inhalation BID 01/08/14 12/27/18 History mcg-4.5 mcg/actuation aerosol inhaler (Symbicort) insulin glargine 100 unit/mL 45 units IJ HS 01/08/14 12/27/18 History subcutaneous solution (Lantus U-100 Insulin) isosorbide mononitrate 60 mg 120 mg PO DAILY 01/08/14 12/27/18 History tablet,extended release 24 hr (Imdur) potassium chloride 10 mEq 60 meq PO BID 01/08/14 05/26/22 History capsule,extended release promethazine 25 mg rectal 25 mg IL Q6H PRN Vomiting #10 supp 01/08/14 12/27/18 Rx suppository (Phenadoz) tiotropium bromide 18 mcg capsule 18 mcg inhalation DAILY 01/08/14 12/27/18 History with inhalation device (Spiriva with HandiHaler) trazodone 50 mg tablet 150 mg PO HS 01/08/14 05/26/22 History allopurinol 100 mg tablet 200 mg PO DAILY 10/16/16 05/26/22 History insulin glargine 100 unit/mL 45 unit SQ .QAM 10/16/16 12/27/18 History subcutaneous solution (Lantus U-100 Insulin) nitroglycerin 400 mcg/spray 4.9 gm translingual PRN PRN 10/16/16 12/27/18 History translingual atorvastatin 80 mg tablet (Lipitor) 80 mg PO QAM 09/07/17 05/26/22 History bupropion HCl 100 mg tablet,12 hr 100 mg PO DAILY 09/07/17 12/27/18 History sustained-release duloxetine 60 mg capsule,delayed 60 mg PO BID 09/07/17 12/27/18 History release (Cymbalta) sennosides 8.6 mg tablet 8.6 mg PO BID PRN PRN 09/07/17 12/27/18 History terazosin 2 mg capsule 4 mg PO HS 09/07/17 12/27/18 History clopidogrel 75 mg tablet (Plavix) 75 mg PO DAILY 10/07/17 12/27/18 History spironolactone 25 mg tablet 25 mg PO DAILY 10/07/17 12/27/18 History torsemide 20 mg tablet 80 mg PO BID 10/07/17 05/26/22 History carvedilol 3.125 mg tablet 3.125 mg PO BID ##60 10/12/17 05/26/22 Rx oxycodone-acetaminophen 10 mg-325 10 mg PO QID PRN 09/21/18 05/26/22 History mg tablet (Percocet) bupropion HCl 150 mg 24 hr tablet, 150 tab PO DAILY 05/26/22 05/26/22 History extended release carboxymethylcellulose sodium 0.5 2 drp QID 05/26/22 05/26/22 History % eye drops fluticasone 500 mcg-salmeterol 50 1 inh inhalation BID 05/26/22 05/26/22 History mcg/dose blistr powdr for inhalation (Advair Diskus) gabapentin 300 mg capsule 600 mg TID 05/26/22 05/26/22 History insulin glargine 100 unit/mL (3 40 unit subcut DAILY 05/26/22 05/26/22 History mL) subcutaneous pen (Basaglar KwikPen U-100 Insulin) ipratropium 0.5 mg-albuterol 3 mg 3 ml inhalation Q6H PRN 05/26/22 05/26/22 History (2.5 mg base)/3 mL nebulization soln omeprazole 20 mg capsule,delayed 20 mg HS 05/26/22 05/26/22 History release sertraline 100 mg tablet 100 mg PO DAILY 05/26/22 05/26/22 History tamsulosin 0.4 mg capsule 0.4 mg PO HS 05/26/22 05/26/22 History Exam Narrative Exam Narrative: 115/77, 60, 36.5, 21, 97% (2.5L). HEENT atraumatic; neck +JVD though cannot peg JVP; lungs bilateral fine rales x one half; heart distant; hypodynamic PMI; RRR w/o MRG; abdomen soft and NT; extrremities 2+ pedal edema; neuro Ox3, moves all 4s Results Labs Result diagrams: 05/26/22 16:45 05/26/22 16:45 Labs: Laboratory Results - last 24 hr 05/26/22 05/26/22 05/26/22 16:45 16:45 16:45 WBC 8.88 RBC 4.44 Hgb 11.5 L Hct 39.4 L MCV 89 MCH 25.9 L MCHC 29.2 L RDW 18.4 H Plt Count 103 L MPV 11.2 H Immature Gran % 0.3 Neutrophils % 76.5 Lymphocytes % 14.8 Monocytes % 5.9 Eosinophils % 2.0 Basophils % 0.5 Nucleated RBC % 0.0 Absolute Neutrophils 6.80 H Absolute Lymphocytes 1.31 Absolute Monocytes 0.52 Absolute Eosinophils 0.18 Absolute Basophils 0.04 D-Dimer 1239 H Sodium 140 Potassium 3.9 Chloride 100 Carbon Dioxide 39.4 H Anion Gap 0.6 L BUN 36 H Creatinine 1.5 H Estimated GFR/1.73 m2 45.75 Glucose 288 H Calcium 8.7 Magnesium 2.1 Total Bilirubin 0.6 AST 19 ALT 29 Alkaline Phosphatase 281 H Troponin I < 50 NT-Pro-B Natriuret Pep 82024 H Total Protein 6.5 Albumin 2.4 L Last Vital Signs Temp 36.5 C 05/26/22 16:32 Pulse 60 05/26/22 18:46 Resp 21 05/26/22 18:46 BP 115/77 05/26/22 18:46 Pulse Ox 97 05/26/22 18:46
--- NOTE | 2022-05-26 19:02 | DI.VRAD_ITS ---
PROCEDURE INFORMATION: Exam: CTA Chest With Contrast Exam date and time: 05/26/2022 6:27 PM Age: 76 years old Clinical indication: Other: Shortness of breath, elevated d dimer TECHNIQUE: Imaging protocol: Computed tomographic angiography of the chest with contrast. 3D rendering (Not supervised by radiologist): MIP and/or 3D reconstructed images were created by the technologist. Radiation optimization: All CT scans at this facility use at least one of these dose optimization techniques: automated exposure control; mA and/or kV adjustment per patient size (includes targeted exams where dose is matched to clinical indication); or iterative reconstruction. Contrast material: OMNIPAQUE 350; Contrast volume: 100 ml; Contrast route: INTRAVENOUS (IV); COMPARISON: CR XR PORTABLE CHEST AP 05/26/2022 5:29 PM FINDINGS: Pulmonary arteries: Pulmonary vascular congestion and interstitial pulmonary edema. Contrast fills the pulmonary artery and its branch vessels satisfactorily. No intraluminal filling defect to suggest pulmonary embolism. Aorta: Unremarkable. No aortic aneurysm. No aortic dissection. Lungs: See Pleural spaces finding. Pleural spaces: Large layering right pleural effusion and small left pleural effusion with adjacent subsegmental atelectasis involving the bilateral lower lobes and the right middle lobe. Heart: Cardiomegaly. No pericardial effusion. Postoperative changes of CABG. Lymph nodes: Large granulomatous lymph node in the right paratracheal mediastinum versus multinodular right border. Bones/joints: Median sternotomy wires. Soft tissues: Moderate bilateral gynecomastia. Small perihepatic ascites. IMPRESSION: 1. Congestive heart failure. 2. No pulmonary embolism. 3. Large layering right pleural effusion and moderate left effusion with adjacent bilateral lower lobe and right middle lobe atelectasis. Dictated and Authenticated by: Alyssa Todd MD. Ordering:MARY KAY Smith MD
[2022-05-26 20:18] LABS: Troponin I < 50 ng/L (<or=60)
[2022-05-26 20:42] LABS: Source Nasal/Nares
[2022-05-26 21:31] LABS: COVID-19 PCR Negative (Negative)
[2022-05-26] MEDS: Carvedilol 3.125 MG TAB PO (21:39)
[2022-05-26] MEDS: Potassium Chloride 10 MEQ CAPCR 60 MEQ PO (21:39)
[2022-05-26] MEDS: Omeprazole 20 MG CAPCR PO (21:40)
[2022-05-26] MEDS: traZODone 50 MG TAB 150 MG PO (21:40)
[2022-05-26] MEDS: Gabapentin 300 MG CAP 600 MG PO (21:40)
[2022-05-26] MEDS: Tamsulosin 0.4 MG CAPCR PO (21:40)
[2022-05-26] MEDS: Furosemide 100 MG/10 ML VIAL 160 MG IVP (22:00)
[2022-05-26] MEDS: Normal Saline Flush 10 ML SYR IVP (22:01)
[2022-05-27 07:33] LABS: Anion Gap 2.5 mmol/L (3-11); BUN 33 mg/dL (7-18); CO2 36.5 mmol/L (21.0-32.0); CREATININE 1.3 mg/dL (0.70-1.30); Calcium 9.2 mg/dL (8.5-10.1); Chloride 102 mmol/L (98-107); Estimated GFR 53.96 (mL/min/1.73m2); Glucose 227 mg/dL (74-106); Potassium 3.9 mmol/L (3.5-5.1); Sodium 141 mmol/L (136-145)
[2022-05-27 07:43] VITALS: BP 130/62; PULSE 62; RESP 19; TEMP 36; O2SAT 96
[2022-05-27] MEDS: Heparin 5,000 UNITS/ML VIAL 5000 UNITS SC ×2 (08:36→20:10)
[2022-05-27] MEDS: Furosemide 100 MG/10 ML VIAL 80 MG IVP ×2 (08:36→16:03)
[2022-05-27] MEDS: Gabapentin 300 MG CAP 600 MG PO ×3 (08:37→20:10)
[2022-05-27] MEDS: Insulin Glargine 300 UNITS/3 ML PEN 40 UNITS SC (08:37)
[2022-05-27] MEDS: Sertraline 100 MG TAB PO (08:37)
[2022-05-27] MEDS: Carvedilol 3.125 MG TAB PO ×2 (08:37→20:10)
[2022-05-27] MEDS: Aspirin E.C. 81 MG TABEC PO (08:37)
[2022-05-27] MEDS: buPROPion-XL 150 MG TABCR PO (08:37)
[2022-05-27] MEDS: Allopurinol 100 MG TAB 200 MG PO (08:37)
[2022-05-27] MEDS: Potassium Chloride 20 MEQ TABCR 60 MEQ PO ×2 (08:37→20:09)
[2022-05-27] MEDS: Budesonide/Formoterol 160/4.5 6 GM 60 PUFF INH IH ×2 (08:43→20:09)
[2022-05-27] MEDS: Normal Saline Flush 10 ML SYR IVP ×4 (08:51→21:15)
--- NOTE | 2022-05-27 08:51 | PDOC.CMIN ---
- If Service Date Differs Date of service: 05/27/22 Time of Service: 08:51 Care Management Initial Assess REASON FOR HOSPITALIZATION:: CHF PAST MEDICAL HISTORY/PAST SURGICAL HISTORY:: All Active Problems (Updated 05/26/22 @ 19:09 by Miguel Melendrez MD). CHF (congestive heart failure) (Chronic). DVT prophylaxis (Acute). Diabetes mellitus (Chronic). History of pericarditis (Chronic). CHAPARRO (obstructive sleep apnea) (Chronic). CAD (coronary artery disease) (Chronic). Colitis (Acute). Diabetic peripheral neuropathy associated with type 2 diabetes mellitus (Chronic). Acute kidney injury (nontraumatic) (Acute). Abnormal EKG (Acute). Constipation due to pain medication (Chronic). Chronic, continuous use of opioids (Chronic). Diastolic dysfunction (Chronic). Exertional dyspnea (Acute). Ischemic cardiomyopathy (Chronic). Myocardial infarction of inferior wall (Chronic) PREVIOUS FUNCTIONAL STATUS/SOCIAL/FAMILY SUPPORTS:: Napoleon currently resides at the [facility] living facility in [place]. His Gia lives at their [facility]. He is retired from the [employer] de[employer] and a [place] [place] [employer]. He has 4 adult children, 2 live locally. Per patient, he's been at [facility] for about a month. Napoleon requires assistance with his ADL's. He has a wheelchair and a nathalia lift. CURRENT FUNCTIONAL STATUS:: Napoleon was lying in bed when CM met with him. He is alert, oriented and easy to engage in conversation. He shared that before he moved into [facility] he was staying at a [facility]hab [facility] in [place]. He feels that his mobility was negatively effected during that 3 months, because he was not allowed to ambulate. Napoleon has been working with [facility] RN/PT/OT and is hopeful to regain his mobility. ADVANCE DIRECTIVES:: On file [facility] is Alt. Jane Leija Has patient been provided with info about the portal/API?: Yes Did the patient sign up for the portal?: No CODE STATUS:: DNR/DNI INSURANCE COVERAGE / FINANCIAL ISSUES:: BC BS. Medicare. [employer] CURRENT HOME/COMMUNITY SERVICES/EQUIPMENT:: [facility] (Assisted Living Facility). [facility] RN/PT/OT. Nathalia Lift. Wheel Chair. [facility] Walker. Home O2 PRIMARY CARE PHYSICIAN:: Nasreen Thapa POTENTIAL DISCHARGE NEEDS:: Follow up appointment, Discharge plan of care, Resumption of [facility] services PATIENT/FAMILY EDUCATION NEEDS:: Review discharge instructions, limitations, medications and plan to follow up with community providers. ask me three. TRANSPORTATION:: Dependent on mobility at time of discharge, likely will require EMS transport PLAN:: Anticipate, Napoleon will discharge back to [facility] with resumption of [facility] RN/PT/OT when medically ready per provider. He will follow up with community providers and discharge plan of care as prescribed.
[2022-05-27] MEDS: Pantoprazole 40 MG VIAL IVP (09:43)
[2022-05-27 10:38] LABS: Lab Add On Test DONE
--- NOTE | 2022-05-27 11:29 | W.INDIABCONS ---
Date of service: 05/27/22 Time of Service: 11:29 Diabetes Inpatient Consult Reason for Visit: dm DESCRIPTION/ASSESSMENT: 76 year old male admitted with CHF s/p two amputation with hx of DM2, CAD, class 2 obesity. Home DM meds: 45 u glargine am and pm. A1C: 8.0% today. In view of comorbidities and age, A1C target is <8.5%. Meeting A1C target at this time. Following Diabetic low sodium diet with adequate intake. INTERVENTION: Continue current meal plan No education needed at this time PLAN: Will monitor po intake, labs and weight Time Spent in Nutritional Counseling and Treatment: 0
[2022-05-27 11:37] LABS: TSH 2.59 uIU/mL (0.36-3.74)
[2022-05-27] MEDS: Insulin Aspart 300 UNITS/3 ML PEN SC ×3 (12:11→21:33)
[2022-05-27] MEDS: oxyCODONE 5 MG TAB PO ×2 (13:09→14:01)
[2022-05-27] MEDS: Acetaminophen 500 MG TAB 1000 MG PO ×2 (14:01→21:14)
--- NOTE | 2022-05-27 14:37 | W.PM.PROGNOT ---
Date of Service Date of service: 05/27/22 Time of Service: 14:37 Assessment and Plan Assessment and plan (1) Acute on chronic systolic CHF (congestive heart failure): Status: Acute Assessment and plan: Continue IV furosemide, while monitoring I/Os and daily weights. Await echocardiogram. (2) Pulmonary hypertension: Status: Acute Assessment and plan: As above (3) Chronic respiratory failure with hypoxia: Status: Chronic Assessment and plan: At baseline Would benefit from exercise oximetry prior to discharge when ready. (4) Wound dehiscence, surgical: Status: Acute Assessment and plan: Obtain XR R foot, podiatry consult, records from the [facility]. Check CRP. Will not start abx at this time until I have a surgical opinion as to whether it is infected. Non-weight bearing to R foot (5) Diabetes mellitus: Status: Chronic Assessment and plan: A1C 8.0. On basal bolus insulin at home. Will titrate to target of 140-180. (6) DVT prophylaxis: Status: Acute Assessment and plan: SC heparin while carefully mointoring plts (thrombocytopenic) (7) Discharge planning issues: Status: Acute Assessment and plan: DNR/DNI Consult palliative care, PT. [facility] ([facility] not have [facility] beds at this time). Subjective Subjective Interval history since last seen: Mr Jiménez states that he is feeling a lot better as far as his breathing. He did have an episode of dyspnea today that he was able to breathe through. He is on 2L of O2 which is his baseline. Denies dizziness, chest pain, nausea. Reports that a couple of days ago the wound on the right foot, which he had surgery on at the [facility], had reopened. He is interested in seeing Dr Holloway. He has been non weight bearing to that foot, per his surgeon's recommendation at the [facility]. Exam Narrative Exam Narrative: General: Pleasant elderly male who is sitting comfortably in a chair, A&Ox3, NAD, on2L of O2 by NC, speaking in full sentences HEENT: EOMI, MMM Heart: RRR, no m/r/g Lungs: crackles [address] B lung feldman Abdomen: soft,obese, nontender Extremities: RLE wound from amputation of the 1st digit with dehiscence and possible infection; granulation tissue present.Foot is mildly erythematous. Objective Last Vital Signs Temp 36 C L 08/02/22 07:43 Pulse 62 05/27/22 07:43 Resp 19 05/27/22 07:43 BP 130/62 05/27/22 07:43 Pulse Ox 96 05/27/22 07:43 Laboratory Results - last 24 hr 05/26/22 05/26/22 05/26/22 16:45 16:45 16:45 WBC 8.88 RBC 4.44 Hgb 11.5 L Hct 39.4 L MCV 89 MCH 25.9 L MCHC 29.2 L RDW 18.4 H Plt Count 103 L MPV 11.2 H Immature Gran % 0.3 Neutrophils % 76.5 Lymphocytes % 14.8 Monocytes % 5.9 Eosinophils % 2.0 Basophils % 0.5 Nucleated RBC % 0.0 Absolute Neutrophils 6.80 H Absolute Lymphocytes 1.31 Absolute Monocytes 0.52 Absolute Eosinophils 0.18 Absolute Basophils 0.04 D-Dimer 1239 H Sodium 140 Potassium 3.9 Chloride 100 Carbon Dioxide 39.4 H Anion Gap 0.6 L BUN 36 H Creatinine 1.5 H Estimated GFR/1.73 m2 45.75 Glucose 288 H Hemoglobin A1c Calcium 8.7 Magnesium 2.1 Total Bilirubin 0.6 AST 19 ALT 29 Alkaline Phosphatase 281 H Troponin I < 50 NT-Pro-B Natriuret Pep 86919 H Total Protein 6.5 Albumin 2.4 L TSH COVID-19 Source SARS-CoV-2 (PCR) Add-On Test Request 05/26/22 05/26/22 05/26/22 16:45 19:53 20:30 WBC RBC Hgb Hct MCV MCH MCHC RDW Plt Count MPV Immature Gran % Neutrophils % Lymphocytes % Monocytes % Eosinophils % Basophils % Nucleated RBC % Absolute Neutrophils Absolute Lymphocytes Absolute Monocytes Absolute Eosinophils Absolute Basophils D-Dimer Sodium Potassium Chloride Carbon Dioxide Anion Gap BUN Creatinine Estimated GFR/1.73 m2 Glucose Hemoglobin A1c 8.0 H Calcium Magnesium Total Bilirubin AST ALT Alkaline Phosphatase Troponin I < 50 NT-Pro-B Natriuret Pep Total Protein Albumin TSH COVID-19 Source Nasal/Nares SARS-CoV-2 (PCR) Negative Add-On Test Request 05/27/22 05/27/22 05/27/22 06:45 06:45 10:00 WBC RBC Hgb Hct MCV MCH MCHC RDW Plt Count MPV Immature Gran % Neutrophils % Lymphocytes % Monocytes % Eosinophils % Basophils % Nucleated RBC % Absolute Neutrophils Absolute Lymphocytes Absolute Monocytes Absolute Eosinophils Absolute Basophils D-Dimer Sodium 141 Potassium 3.9 Chloride 102 Carbon Dioxide 36.5 H Anion Gap 2.5 L BUN 33 H Creatinine 1.3 Estimated GFR/1.73 m2 53.96 Glucose 227 H Hemoglobin A1c Calcium 9.2 Magnesium Total Bilirubin AST ALT Alkaline Phosphatase Troponin I NT-Pro-B Natriuret Pep Total Protein Albumin TSH 2.59 COVID-19 Source SARS-CoV-2 (PCR) Add-On Test Request DONE Objective Narrative Objective Narrative: XR R foot pending.
--- NOTE | 2022-05-27 15:07 | DI.RAD_ITS ---
Exam(s) XR FOOT RT COMPLETE EXAM: XR FOOT RT COMPLETE CLINICAL HISTORY: wound dehiscence right foot. TECHNIQUE: 2D digital imaging was performed of the right foot. Three images were obtained. AP, obl ique and lateral views were obtained. COMPARISON: No exams were available for comparison FINDINGS: BONES: No acute fracture is present. No bony destructive lesion is seen. No radiographic evidence to suggest acute osteomyelitis is seen. There is a tiny plantar calcaneal spur. There is a small enthe sophyte at the Achilles insertion site. JOINTS: No dislocation present. There is an amputation of the great toe at the MTP joint. SOFT TISSUE: There is soft tissue swelling around the head of the 1st metatarsal. No gas or foreign body is seen in the soft tissues. Atherosclerosis is present. IMPRESSION: No radiographic evidence to suggest osteomyelitis. DATA REPOSITORY: RADIATION DOSE DELIVERED:
--- NOTE | 2022-05-27 15:12 | IN_ITS ---
Date of service: 05/27/22 Time of Service: 11:57 PT Notes Visit Reasons: Congestive heart failure Physical Therapy Inpatient Initial Evaluation Date: 05/27/2022 Referring Doctor: Barbara Zapata MD PT Orders: PT CONSULT: Limited ability Precautions: Fall. Standard. Activity as tolerated. Patient Profile/Admitting Diagnosis: Napoleon is a 76-year-old male who presented to the ED on 05/26/2022 due to increasing shortness of breath and bilateral lower extremity edema over the past 1 to 2 weeks. Patient had a toe amputation at the [facility] some two to three months ago and needed a repeat surgery for infection a week or two after original surgery. He stayed at the [facility] for about 2-3 months after surgery but was not allowed to walk due to WB precaution from toe surgery. Patient is diagnosed with congestive heart failure for this admission with referral for physical therapy for mobility assessment. PMHX: All Active Problems?(Updated 05/26/22 @ 19:09 by Miguel Melendrez MD) CHF (congestive heart failure) (Chronic) DVT prophylaxis (Acute) Diabetes mellitus (Chronic) History of pericarditis (Chronic) CHAPARRO (obstructive sleep apnea) (Chronic) CAD (coronary artery disease) (Chronic) Colitis (Acute) Diabetic peripheral neuropathy associated with type 2 diabetes mellitus (Chronic) Acute kidney injury (non-traumatic) (Acute) Abnormal EKG (Acute) Constipation due to pain medication (Chronic) Chronic, continuous use of opioids (Chronic) Diastolic dysfunction (Chronic) Exertional dyspnea (Acute) Ischemic cardiomyopathy (Chronic) Myocardial infarction of inferior wall (Chronic) Social History/Home Situation: Lives at the [facility] in [place], [place]. stays at their private residence in the same town. Per patient and , Napoleon has not been mobile and has a wheelchair and a liss lift at the [facility]. Equipment Owned/DME: Wheelchair, liss lift, FWW Subjective: Agreeable to PT consult. Motivated to try getting out of bed with FWW and to improve his overall mobility level. TEACHING ARTIST Angie assisting with transfer. Objective: General Observation: Supine in bed. High BMI. In NAD. Abdominal panniculus noted. On oxygen supplementation via NC. Dressing over R forefoot. Swelling in B LE. Ospina catheter in place. No post op shoe availble in room. Mental Status: Alert and oriented as to person, place, time, and purpose. Able to pay attention, focus, and respond appropriately. Pain: Denies pain Vital Signs: WNL as closely monitored by nursing staff ROM: Right Upper Extremity: Shoulder Flexion allows only up to 90 degrees. Shoulder abduction allows only up to 90 degrees. Elbow flexion WFL. Wrist flexion WFL. Functional opening and closing of hand WFL. Left Upper Extremity: Shoulder Flexion allows only up to 90 degrees. Shoulder abduction allows only up to 90 degrees. Elbow flexion WFL. Wrist flexion WFL. Functional opening and closing of hand WFL. Right Lower Extremity: Hip flexion limited to 90 degrees, unable to bedn any further beyond 90 when seated at edge of chair. Hip abduction about 10 degrees. Knee flexion 20 degrees to 90 degrees. Knee extension -20 degree. Ankle dorsiflexion to neutral only. Ankle plantarflexion WFL. Left Lower Extremity: Hip flexion limited to 90 degrees, unable to bedn any further beyond 90 when seated at edge of chair. Hip abduction about 10 degrees. Knee flexion 20 degrees to 90 degrees. Knee extension -20 degree. Ankle dorsiflexion to neutral only. Ankle plantarflexion WFL. Strength: Right Upper Extremity: Shoulder flexors 3-/5. Shoulder abductors 3-/5. Elbow flexors 3-/5. Elbow extensors 4-/5. Administrative Appeals Tribunal Member strong. Left Upper Extremity: Shoulder flexors 3-/5. Shoulder abductors 3-/5. Elbow flexors 3-/5. Elbow extensors 4-/5. Administrative Appeals Tribunal Member strong. Right Lower Extremity: Hip flexors 3-/5. Hip abductors 3-/5. Knee flexors 3-/5. Knee extensors 3-/5. Ankle dorsiflexors 3-/5. Ankle plantarflexors 4-/5. Left Lower Extremity: Hip flexors 3-/5. Hip abductors 3-/5. Knee flexors 3-/5. Knee extensors 3-/5. Ankle dorsiflexors 3-/5. Ankle plantarflexors 4-/5. Bed Mobility/Transfers: Supine to sit with stand by assist with HOB at 30 degrees Sit to stand with contact guard assist of 2 with elevated bed height Stand to sit with contact guard assist of 2 Bed to bedside reclining chair with contact guard assist of 2 Gait: Instructed patient with level surface ambulation of 5 feet requiring contact guard assist of 2. Denies pain in B LE with activity. Balance: Static Sitting: Good Dynamic Sitting: Good Static Standing: Fair Dynamic Standing: Poor Special Tests: Mobility Limitations Standardized Measure [facility] AM-PAC 6 clicks Basic Mobility Inpatient Short Form: Raw Score: 18 CMS Score: 47% deficit Informed Consent/Education: Patient was instructed in purpose of PT consult and plan of care. Agreeable to proceed with established PT POC to achieve personal goals. Assessment: Patient has been non-ambulatory for a couple of months now but is hoping to improve his mobility level while here. Requires assistance of two people for safety. Will complete assessment and see how patient performs later in the day from a chair with low height. Will consult with MD regarding weight bearing pr ecaution on R LE. Patient presents with clinical signs and symptoms consistent with current/admitting diagnoses that have resulted to mobility limitations, gait instability, generalized weakness, and overall ADL decline as demonstrated by the following impairment level findings: 1. Decreased strength to B UE/LE major muscle groups 2. Impaired sitting/standing balance 3. Impaired activity tolerance 4. Limitation of joint range of motion in B shoudlers, hips, and knees 5. Shortness of breath 6. Swelling in B LE Impairments are contributing to the following functional limitations: 1. Decline in bed mobility skills 2. Decline in transfer skills 3. Difficulty with ambulation without assistive device and physical assistance 4. Increased completion time for mobility ADL performance 5. Increased risk for falls 6. Difficulty with managing steps alone safely Patient is assessed as a 89026 high complexity based on the following: History: 76-year-old male with past medical history as indicated above Examination: Demonstrable impairment in strength, balance, and mobility level with underlying impairments and functional limitations as exhibited above as well as deficit score of 47% utilizing the [facility] Mobility Inpatient Short Form Presentation: Evolving Decision Makin high complexity Goals: Goals X1 week 1. Supine-Sit independent 2. Sit-Supine independent 3. Sit-Stand independent 4. Stand-Sit stand by assist with FWW 5. Bed-Chair stand by assist with FWW 6. Chair-Bed stand by assist with FWW 7. Contact guard assist gait on level surface with use of FWW for at least 15 feet without report of pain nor dyspnea 8. Good static and dynamic standing balance/tolerance Plan of Care/Treatment Plan: 1-2x/day, 7 days/week x 1 week. Plan of care has been reviewed with the WAREHOUSE HANDLER providing the service under Physical Therapy direction. Initiate Physical Therapy intervention for pain management as needed, strengthening, bed mobility, transfers, gait, stairs, balance training, and use of assistive device. DISCHARGE RECOMMENDATIONS: [] Home with no services [] [] Home with services [specify] [] Home with outpatient PT [] [] SNF for continued rehabilitation [] [] Correction Care [] [] SNF versus LTC based on ability to participate and progress [] [X] SNF vs [facility] depennding on progress towards goals TREATMENT CODE/TIME: 70778 x 20 minutes, 78370 x 29 minutes beginning at 11:57 AM and 15:12 PM. Thank you for the opportunity to participate in the care of this patient. Elisa Law PT, DPT, CLT [facility] [place], [place]
--- NOTE | 2022-05-27 15:22 | PTTR_ITS ---
Date of service: 05/27/22 Time of Service: 15:22 PT Notes Visit Reasons: Congestive heart failure Physical Therapy Inpatient Treatment Note Date: 05/27/2022 Referring Doctor: Barbara Zapata MD PT Orders: PT CONSULT: Limited ability Precautions: Fall. Standard.? NWB on R LE until cleared by owner/operator or hospitalist. Mechanical liss only for all transfers. DO NOT USE STEDY lift to avoid weight bearing on R LE. Subjective: Hopeful that he can progress his mobility level. Frustrated about how at the previous SNF he was not allowed to walk due to non-healing and infected wound. Complains of L leg pain which he states has had for quite awhile. Reports fatigue and frustration over non-healing wounf in amputate area. Objective: General Observation: Seated in chair. High BMI.? In NAD.? Abdominal panniculus noted.? On oxygen supplementation via NC.? Dressing over R forefoot.? Swelling in B LE.? Valles catheter in place.? No post op shoe available in room. Sanguinous drainge noted from R 1st toe amputation site. Nurse Maria T made adilene re. Mental Status: Alert and oriented as to person, place, time, and purpose. Able to pay attention, focus, and respond appropriately. Pain: 5-6/10 pain in L LE Vital Signs: WNL as closely monitored by nursing staff Bed Mobility/Transfers: Sit to stand unable to stand patient up with assist of 1to 3, needed assist of 4 to stand up from low chair Stand to sit with modearte assist of 2 Sit to spupine moderate assist of 2 Scoot up in bed required assist of 4 Gait: Unable due to pain in L leg, non-weight bearing precaution and increasing fatigue. Balance: Static Sitting: Poor Dynamic Sitting: Fair Static Standing: Fair Dynamic Standing: Poor Assessment: Unable to stand up from low recling bedside chair. Needed assist of 4 to use STEDY lift to stand up. Due to NWB restriction on R LE all trsnfers will need to be via mechanical lift only until cleared by podiatrsit or hospitalist. All treatment sessions to be done supine in bed or at edge of bed as of today. Goals: Goals X1 week 1. Supine-Sit independent 2. Sit-Supine independent 3. Sit-Stand independent HOLD OFF UNTIL CLEARED 4. Stand-Sit stand by assist with FWW HOLD OFF UNTIL CLEARED 5. Bed-Chair stand by assist with FWW HOLD OFF UNTIL CLEARED 6. Chair-Bed stand by assist with FWW HOLD OFF UNTIL CLEARED 7. Contact guard assist gait on level surface with use of FWW for at least 15 feet without report of pain nor dyspnea HOLD OFF UNTIL CLEARED 8. Good static and dynamic standing balance/tolerance HOLD OFF UNTIL CLEARED Plan of Care/Treatment Plan: Focus on bed level or edge of bed resistance exercises to B UE/LE. Transfers via mechanical lift only until cleared by owner/operator and or hospitalist to allow for healing of R 1st phalanx amputation site. DISCHARGE RECOMMENDATIONS: [] ? Home with no services [] [] ? Home with services [specify] [] ? Home with outpatient PT [] [] ? SNF for continued rehabilitation [] [] ? Senior Laboratory Technician Care [] [] ? SNF versus LTC based on ability to participate and progress [] [X]? SNF vs [facility] depennding on progress towards goals TREATMENT CODE/TIME: 26107 x 29 minutes beginning at 15:22 PM.
[2022-05-27 15:47] VITALS: BP 132/73; PULSE 63; RESP 20; TEMP 36.4; O2SAT 89
[2022-05-27 17:03] VITALS: O2SAT 92
--- NOTE | 2022-05-27 17:14 | WOUNDCONS ---
- If Service Date Differs Date of service: 05/27/22 Time of Service: 16:30 Wound Initial Evaluation Narrative: 76 yr old admitted from [facility] who was previously at a longterm in [place] post surgically after amputation of a right great toe and non weight bearing on the right foot. Came in with CHF with a BNP of > 25,000. 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 His current BMI is 37.6 and recent HgbA1c is 8.0. He is a former smoker and drinker of alcohol. Current WBC 8.88 H&H 11.5 & 39.4 DDimer 1239 An xray of his right foot done today does not indicate any osteomyelisis but the toe is open, draining and showing signs of necrosis. A podiatry consult has been put in place for the diabetic foot. Wound care orders have also [facility] and has been getting [facility] care prior to admission. Some of his current medications include: Atorvastatin, aspirin, coreg, lasix, neurontin, and insulin. - Wound Right Lower Posterior Lumbar/Sacral Wound Type: Partial Thickness Pressure Ulcer Stage: II Wound General Appearance: Draining, Unapproximated Wound Bed Greatest Portion: Yellow (Slough) Wound Bed Lesser Portion: Pale [place] Wound Surrounding Tissue Appearance: [place] Percent of Wound Bed Granulated/Red: 10 Percent of Wound Bed Slough/Yellow: 90 Percent of Wound Bed Eschar/Black: 0 Wound Length: 0.59 in (1.5cm) Wound Width: 0.39 in (1.0cm) Wound Depth: 0.04 in (0.1cm) Wound Drainage Amount: Minimal Wound Drainage Odor: None/Absent Wound Drainage Description: Serous Wound Topical Solution/Irrigant: Saline Irrigant, Other (Phytoplex lotion followed by saline rinse.) Wound Debridement Method: Gauze Wound Debridement Result: Yellow Sloughing Remains Wound Debridement Amount of Tissue Removed: None Additional Other Comments: right ischial tuberosity Posterior Lumbar/Sacral Wound Type: Deep Tissue Injury (DTI) Pressure Ulcer Stage: Eschar/Unstageable Wound General Appearance: Other (dark purple, nonblanchable) Wound Surrounding Tissue Appearance: Dark Red Wound Length: 0.59 in (1.5cm) Wound Width: 0.39 in (1.0cm) Wound Drainage Amount: None Wound Drainage Odor: None/Absent Wound Topical Solution/Irrigant: Saline Irrigant Wound Debridement Amount of Tissue Removed: None Additional Other Comments: coccyx area - Pain Pain Level: 7 Pain Scale Used: Adult Pain Description: Burning, Radiating, Dull, Achy Pain Duration/Frequency: With Palpation Pt states that while he was at the senior care and was not able to bear weight on his right foot, he developed the wounds on his buttocks. The wound on his right ischial tuberosity is tender but the one over his coccyx is very sore shooting the pain right down his legs when palpated. The one over the coccyx is unstageable at this time as it is deep purple but closed. Will allow autolytic debridement to the tuberosity wound at this time. - Photo Photo: - Treatment/Dressing Change Topicals/Ointments: Anasept Gel Cleanse With: Saline Dressing Types: Hydrocollid (Duoderm) Dressing Comment: Allow autolytic debridement using duoderm dressings. - Recomendation Recomendation:: Coccyx and Right Ischial Tuberosity: 1. Clean areas with saline. 2. Pat dry. 3. Apply a layer of Anasept gel. 4. Apply duoderm dressings to each site avoiding wrinkling of dressing. 5. Change every 3-5 days and prn. Reposition pt side to side at least every 2 hours while in bed. Use at least 5 pillows for repositioning (one under head, one behind back and hips, one between knees and ankles, one under upper arm). Avoid high fowlers position to off load sacral areas. Also recommend high protein diet to promote wound healing. Multivitamins, vitamin c, and zinc. Physcian/Nurse Practioner Notified: Yes Referrals: Dietary, Physical Therapy, Podiatry Treatment Time - Time Total Time Spent with Patient: 55 minutes - Patient Will be Seen Weekly Treatment: 1x/wk - For: For:: 2 weeks
[2022-05-27 18:05] LABS: Lab Add On Test DONE
[2022-05-27 18:20] LABS: C-Reactive Protein 3.83 mg/dL (0.0-0.3)
--- NOTE | 2022-05-27 18:20 | W.PODCONSULT ---
Date of service: 05/27/22 Time of Service: 18:20 History of Present Illness Narrative: 76-year-old male with poorly controlled diabetes, peripheral vascular disease who developed chronic ulceration of his right great toe of 2 years duration ultimately requiring amputation. The amputation process started approximately March 24 with a second trip to the OR somewhere around March 31. Required a minimum of 2 surgical interventions ultimately removing the hallux at the metatarsal phalangeal joint and requiring antibiotic management for osteomyelitis. [facility] and myself[facility] All Active Problems Discharge planning issues (Acute) Wound dehiscence, surgical (Acute) Chronic respiratory failure with hypoxia (Chronic) Pulmonary hypertension (Acute) Acute on chronic systolic CHF (congestive heart failure) (Acute) CHF (congestive heart failure) (Chronic) DVT prophylaxis (Acute) Diabetes mellitus (Chronic) History of pericarditis (Chronic) CHAPARRO (obstructive sleep apnea) (Chronic) CAD (coronary artery disease) (Chronic) Colitis (Acute) Diabetic peripheral neuropathy associated with type 2 diabetes mellitus (Chronic) Acute kidney injury (nontraumatic) (Acute) Abnormal EKG (Acute) Constipation due to pain medication (Chronic) Chronic, continuous use of opioids (Chronic) Diastolic dysfunction (Chronic) Exertional dyspnea (Acute) Ischemic cardiomyopathy (Chronic) Myocardial infarction of inferior wall (Chronic) Social History Smoking/Tobacco Use Status: Former Tobacco Use Tobacco: How many years used: 24 Smoking risk assessment performed?: Yes Alcohol Intake: former Drug use: Never Details: Pt quit alcohol and tobacoo 24 years ago. Do you feel safe at home: Yes Do you feel safe in your relationship?: Yes Exam Narrative Exam Narrative: Napoleon is seen in his room resting comfortably. He is awake and alert. He is accompanied by his son-in-law. Dressings are removed from his right foot. Right foot is warm to the touch without edema. Skin is thin, atrophic with hemosiderin changes noted. Pedal hair is absent nails are thickened. No peripheral edema noted at this time. Peripheral pulses at the ankle were manually poorly appreciated, capillary fill under 5 seconds to the toes. A wound is appreciated over the distal medial aspect of the right foot. The distal incision over the first ray is healed. The wound extends medially and somewhat dorsally from this point proximally. The wound is teardrop shaped with the base filled with adherent slough, scab and debris. The wound is full-thickness. The wound measured 2.7 cm in length by 1.8 cm in width by 1 mm. The left foot was evaluated, skin is intact. Warm to the touch with diminished arterial inflow appreciated. Radiographs were obtained earlier today, amputation of the hallux through the metatarsal phalangeal joint is appreciated, no sign of osteomyelitis appreciated. Impressions: Diabetic ulcer right foot as above Wound dehiscence right foot Peripheral arterial disease/diabetic microangiopathy Diabetic neuropathy Plan: At bedside, with a #10 scalpel, the wound was cleansed with povidone iodine then sharply debrided removing the slough, debris and devitalized tissue from the base and periphery of the wound. Scant bleeding was appreciated coming from the wound margins with even less bleeding coming from the base of the wound. No purulence was identified. No odor appreciated. I will initiate wound care consisting of washing the wound daily with soap and water rinsing well and gently drying. Collagenase Santyl to the base of the wound covered with a normal saline wet-to-dry bulky dressing consisting of 3 x 3 gauze pads, Kerlix roll, flex net. The wound did not have clinical appearance of gross infection at this time . if the wound fails to thrive or deteriorate over the next 7 to 10 days, strong consideration for vascular consultation would be appropriate. I discussed the case with Dr. Zapata acting hospitalist. Results Last Vital Signs Temp 36.4 C L 05/27/22 15:47 Pulse 63 05/27/22 15:47 Resp 20 05/27/22 15:47 BP 132/73 05/27/22 15:47 Pulse Ox 92 05/27/22 17:03 Labs Result diagrams: 05/26/22 16:45 05/27/22 06:45 Labs: Laboratory Results - last 24 hr 05/26/22 05/26/22 05/26/22 16:45 19:53 20:30 Sodium Potassium Chloride Carbon Dioxide Anion Gap BUN Creatinine Estimated GFR/1.73 m2 Glucose Hemoglobin A1c 8.0 H Calcium Troponin I < 50 TSH COVID-19 Source Nasal/Nares SARS-CoV-2 (PCR) Negative Add-On Test Request 05/27/22 05/27/22 05/27/22 06:45 06:45 10:00 Sodium 141 Potassium 3.9 Chloride 102 Carbon Dioxide 36.5 H Anion Gap 2.5 L BUN 33 H Creatinine 1.3 Estimated GFR/1.73 m2 53.96 Glucose 227 H Hemoglobin A1c Calcium 9.2 Troponin I TSH 2.59 COVID-19 Source SARS-CoV-2 (PCR) Add-On Test Request DONE 05/27/22 Unknown Sodium Potassium Chloride Carbon Dioxide Anion Gap BUN Creatinine Estimated GFR/1.73 m2 Glucose Hemoglobin A1c Calcium Troponin I TSH COVID-19 Source SARS-CoV-2 (PCR) Add-On Test Request DONE
[2022-05-27 19:43] LABS: Procalcitonin < 0.1 ng/mL
[2022-05-27] MEDS: Atorvastatin 40 MG TAB 80 MG PO (20:10)
[2022-05-27] MEDS: traZODone 50 MG TAB 150 MG PO (21:14)
[2022-05-27] MEDS: Tamsulosin 0.4 MG CAPCR PO (21:15)
[2022-05-27] MEDS: Omeprazole 20 MG CAPCR PO (21:15)
[2022-05-27] MEDS: oxyCODONE 5 MG TAB 10 MG PO (21:17)
[2022-05-27 21:40] VITALS: O2SAT 89
[2022-05-27 23:30] VITALS: BP 134/74; PULSE 56; RESP 20; TEMP 36.2; O2SAT 91
--- NOTE | 2022-05-28 | DI.MRI_ITS ---
Exam(s) MR LOWER EXTREMITY RT WO/W EXAM: MR LOWER EXTREMITY RT WO/W CLINICAL HISTORY: r/o osteomyelitis, diabetic foot ulcer, s/p amputa. TECHNIQUE: Multiplanar multisequence MRI was performed. CONTRAST MATERIAL: IV Contrast: 15 mL of Dotarem contrast administered. COMPARISON: Plain films 27 May 2022 FINDINGS: Amputation of the 1st toe. Soft tissue edema at stump. Skin ulceration visible.. No drainable flui d collection. Metallic artifacts in stump related to prior surgery. There is minimal postcontrast e nhancement in the medial aspect of the 1st metatarsal head which could represent osteomyelitis. Rush ow signal is otherwise normal. IMPRESSION: Question of a small area of enhancement in the medial aspect of the 1st metatarsal head which could r epresent osteo myelitis. DATA REPOSITORY:
[2022-05-28] MEDS: Acetaminophen 500 MG TAB 1000 MG PO ×3 (05:33→21:52)
[2022-05-28 07:01] LABS: Platelet Count 101 10^3/uL (130-400)
[2022-05-28 07:19] LABS: Anion Gap 2.2 mmol/L (3-11); BUN 36 mg/dL (7-18); CO2 35.8 mmol/L (21.0-32.0); CREATININE 1.4 mg/dL (0.70-1.30); Calcium 9.5 mg/dL (8.5-10.1); Chloride 102 mmol/L (98-107); Estimated GFR 49.54 (mL/min/1.73m2); Glucose 149 mg/dL (74-106); Magnesium 2.2 mg/dL (1.8-2.4); Potassium 4.3 mmol/L (3.5-5.1); Sodium 140 mmol/L (136-145)
[2022-05-28 07:30] VITALS: BP 144/65; PULSE 62; RESP 20; TEMP 36; O2SAT 98
[2022-05-28] MEDS: Budesonide/Formoterol 160/4.5 6 GM 60 PUFF INH IH ×2 (07:44→20:34)
[2022-05-28] MEDS: buPROPion-XL 150 MG TABCR PO (08:06)
[2022-05-28] MEDS: Allopurinol 100 MG TAB 200 MG PO (08:06)
[2022-05-28] MEDS: Aspirin E.C. 81 MG TABEC PO (08:06)
[2022-05-28] MEDS: Furosemide 100 MG/10 ML VIAL 80 MG IVP ×2 (08:06→16:28)
[2022-05-28] MEDS: Sertraline 100 MG TAB PO (08:06)
[2022-05-28] MEDS: Normal Saline Flush 10 ML SYR IVP ×3 (08:06→16:28)
[2022-05-28] MEDS: Potassium Chloride 20 MEQ TABCR 60 MEQ PO ×2 (08:07→20:29)
[2022-05-28] MEDS: Pantoprazole 40 MG TABCR PO (08:07)
[2022-05-28] MEDS: Carvedilol 3.125 MG TAB PO (08:07)
[2022-05-28] MEDS: Gabapentin 300 MG CAP 600 MG PO ×3 (08:07→20:29)
[2022-05-28] MEDS: Insulin Aspart 300 UNITS/3 ML PEN SC ×4 (08:08→21:49)
[2022-05-28 08:14] VITALS: BP 131/65; PULSE 71; RESP 18; TEMP 36.9; O2SAT 98
[2022-05-28] MEDS: Insulin Glargine 300 UNITS/3 ML PEN 45 UNITS SC (08:34)
--- NOTE | 2022-05-28 08:43 | CMPROGNOTE_ITS ---
- If Service Date Differs Date of service: 05/28/22 Time of Service: 08:43 Care Management Progress Note S/O: Napoleon requires close monitoring and treatment for CHF. He is on IV furosemide. Napoleon requires additional work up to r/o osteo, Dr. Holloway is consulted. Napoleon is working with PT. Palliative care is consulted. A: 76 year old male admitted to [facility] on 05/26/22 for CHF. P: Anticipate, Napoleon will discharge back to [facility] ([facility]) with res[facility]OT when medically ready per provider. He will follow up with community providers and discharge plan of care as prescribed. [facility] is [facility].
--- NOTE | 2022-05-28 09:21 | PT.INTREAT ---
Date of service: 05/28/22 Time of Service: 09:21 PT Notes Visit Reasons: Congestive heart failure Physical Therapy Inpatient Treatment Note Date: 05/28/2022 Referring Doctor: Barbara Zapata MD PT Orders: PT CONSULT: Limited ability Precautions: Fall. Standard.??WBAT with post op shoes per Dr. Holloway on 05/27/2022 18:20 PM. No STEDY lift to prevent skin tears. Subjective: Compains of ffatigue and requested to return back to bed. Still hopeful that he can progress his mobility level.? 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 Complains of discomfort in his bottom. Objective: General Observation: Seated in low chair. High BMI.? In NAD.? Abdominal panniculus noted.? On oxygen supplementation via NC.? Dressing over R forefoot.? Swelling in B LE.? Valles catheter in place.? No cushion on chair seen. Mental Status: Alert and oriented as to person, place, time, and purpose. Able to pay attention, focus, and respond appropriately. Pain: 7-8/10 pain in L LE and bottom Vital Signs: WNL as closely monitored by nursing staff Bed Mobility/Transfers: Chair to bed using mechanical lift with assist of PT and LNAs Angie and Dominga as patient is unable to stand up from this low chair. PANELBOARD TANK PUMPER Angie was able to secure a high chair for patient as of this visit Gait: Transferred with nursing staff from bed to bedside recliner earlier using FWW with assist of 2 Balance: Static Sitting: Poor Dynamic Sitting: Fair Static Standing: Fair Dynamic Standing: Poor Assessment: As of 05/27/2022 at 18:20 PM clearance coordinator ordered WBAT on R LE with post op shoe on R LE. Another post op shoe for the L LE was provided to avoid imbalance from leg length discrepancy that can negatively impact efficiency of walking. Needs surface height to be high to be able to stand up so patient may stand up from edge of bed and from high chair to progress ambulation activity. Patient has been not fully ambulatory for the past three months and may take time with ambulation progression. Patient requires bariatric STEDY lift, do not use regular lift to avoid skin tears. Will benefit from skilled OT services. Goals: Goals X1 week 1. Supine-Sit independent 2. Sit-Supine independent 3. Sit-Stand independent? 4. Stand-Sit stand by assist with FWW? 5. Bed-Chair stand by assist with FWW? 6. Chair-Bed stand by assist with FWW? 7. Contact guard assist gait on level surface with use of FWW for at least 15 feet without report of pain nor dyspnea? 8. Good static and dynamic standing balance/tolerance? Plan of Care/Treatment Plan: Activity as tolerated. DISCHARGE RECOMMENDATIONS: [] ? Home with no services [] [] ? Home with services [specify] [] ? Home with outpatient PT [] [] ? SNF for continued rehabilitation [] [] ? Clinical Services Consultant Care [] [] ? SNF versus LTC based on ability to participate and progress [] [X]? Return to [facility] when medically cleared with PT and OT services. TREATMENT CODE/TIME: 03118 x 38 minutes beginning at 9:21 AM.
--- NOTE | 2022-05-28 11:24 | W.PM.PROGNOT ---
Date of Service Date of service: 05/28/22 Time of Service: 11:25 Assessment and Plan Assessment and plan (1) Acute on chronic systolic CHF (congestive heart failure): Status: Acute Assessment and plan: Continue IV furosemide, while monitoring I/Os and daily weights. echocardiogram results pending. (2) Pulmonary hypertension: Status: Acute Assessment and plan: As above (3) Chronic respiratory failure with hypoxia: Status: Chronic Assessment and plan: At baseline Would benefit from exercise oximetry prior to discharge when ready. (4) Wound dehiscence, surgical: Status: Acute Assessment and plan: XR R foot negative for osteo, MRI with question of osteo, podiatry [facility] CRP elevated, will trend consider levaquin and metronidazole per previous cultures and previous ID consultation, will call [place] in am to discuss. obtain wound culture here for now,try to arrange for bone culture (had cefepime induced toxicity) can weight bear as tolerated to R foot per podiatry. (5) Diabetes mellitus: Status: Chronic Assessment and plan: A1C 8.0. On basal bolus insulin at home. Will titrate to target of 140-180. (6) DVT prophylaxis: Status: Acute Assessment and plan: SC heparin while carefully mointoring plts (thrombocytopenic), hold if less than 100 (7) Discharge planning issues: Status: Acute Assessment and plan: DNR/DNI Consult palliative care, PT. [facility] ([place] [facility] not have inpatient beds at this time). discussed with DR Zapata Subjective Subjective Patient reports: no new complaints, feels better, tolerating liquids well, tolerating a regular diet and afebrile Objective Last Vital Signs Temp 36.9 C 05/28/22 08:14 Pulse 71 05/28/22 08:14 Resp 18 05/28/22 08:14 BP 131/65 05/28/22 08:14 Pulse Ox 98 05/28/22 08:14 Laboratory Results - last 24 hr 05/27/22 05/27/22 05/27/22 06:45 06:45 06:45 Plt Count Sodium Potassium Chloride Carbon Dioxide Anion Gap BUN Creatinine Estimated GFR/1.73 m2 Glucose Calcium Magnesium C-Reactive Protein 3.83 H Procalcitonin < 0.1 TSH 2.59 Add-On Test Request 05/27/22 05/28/22 05/28/22 Unknown 06:10 06:10 Plt Count 101 L Sodium 140 Potassium 4.3 Chloride 102 Carbon Dioxide 35.8 H Anion Gap 2.2 L BUN 36 H Creatinine 1.4 H Estimated GFR/1.73 m2 49.54 Glucose 149 H Calcium 9.5 Magnesium 2.2 C-Reactive Protein Procalcitonin TSH Add-On Test Request DONE
--- NOTE | 2022-05-28 12:44 | DI.US_ITS ---
APPROVED REPORT EXAM: Comprehensive 2D, Doppler, and color-flow Echocardiogram Patient Location: In-Patient Room/Bed: 209 Supervisor [employer]: Jackie De La Rosa RDCS (AE) Indications: CHF Prev 08/2017 Other Information Study Quality: Adequate. Technically limited study due to body habitus, inability to position patient exam done supine bedside.. Conclusion Moderately dilated left ventricle. Normal wall thickness. Estimated ejection fraction is 30 to 35% with global hypokinesis The right ventricle is normal in size and systolic function The left atrium is mildly dilated. The right atrium is borderline dilated The aortic valve is trileaflet with moderate regurgitation Mild mitral annular calcification. Moderate mitral regurgitation Normal tricuspid valve with moderate regurgitation. Estimated right ventricular systolic pressure is 44 mmHg Mildly dilated ascending aorta Wall motion Left Ventricle Left ventricle is moderately dilated. Left ventricular systolic function is moderately decreased. The re is normal left ventricular wall thickness. There is no ventricular septal defect visualized. LVEF is 30-35%. Right Ventricle The right ventricle is normal size. The right ventricular systolic function is normal. The RVSP is 43 .6 mmHg. Atria Left atrium is mildly dilated. Right atrium is borderline dilated. The interatrial septum is intact w ith no evidence for an atrial septal defect. Aortic Valve The aortic valve is normal in structure. Aortic valve is trileaflet. There is no aortic valvular sten osis. Moderate aortic regurgitation. Mitral Valve Mild mitral annular calcification. No evidence of mitral valve stenosis. Moderate mitral regurgitatio n. Tricuspid Valve The tricuspid valve is normal in structure. There is no tricuspid valve stenosis. Moderate tricuspid regurgitation. Pulmonic Valve The pulmonary valve is normal in structure. There is no pulmonic valvular stenosis. Trace pulmonic re gurgitation. Great Vessels The aortic root is normal in size. The ascending aorta is mildly dilated. Aortic arch is not well vis ualized. The IVC collapses <50% with inspiration. Pericardium There is no pericardial effusion. 2D Dimensions IVSD d PLAX 0.93 cm M: 0.6-1.2 LV Vol A2C d MOD 249.9 mL LVPW d PLAX 0.94 cm M: 0.6 - 1.2 LV Vol A4C d MOD 182.5 mL LVID d PLAX 6.36 cm M: 4.2 - 5.8 LA vol/ BSA A2C s A-L 49.9 mL/m2 LVDs 5.40 cm M: 2.5 - 4.0 LA vol/ BSA A4C s A-L 19.8 mL/m2 Ao Root d 3.46 cm M: 3.1 - 3.7 LA Vol/ BSA Biplane s A-L 35.5 mL/m2 RA Area A4C 23.98 cm2 LA Area A4C s MOD 16.96 cm2 RA Vol/ BSA A4C s A-L 32.7 mL/m2 LA Area A2C s MOD 30.39 cm2 Ao Asc Diam d 3.98 cm M: 2.6 - 3.4 LV EF A4C MOD 35.1 % LV EF Teichholz 30.6 % LV EF A2C MOD 30.6 % LVEF (Murguia's) 32.69 % M: 52 - 72 LV EF Biplane MOD 32.7 % LV Volume 151.68 mL M: 62 - 150 SV 70.37 mL LV Volume Index 62.16 mL/m2 M: 34 - 74 SV Index 28.81 mL/m2 LV Vol Biplane MOD 215.3 mL FS 14.70 % M-Mode TAPSE 1.37 cm (M/F) >1.7 LV Diastology MV E' medial 0.038 (>0.07 m/s) E/A Ratio 2.4 LV E/e MED 18.60 (<14) MV E Vmax 0.71 (0.4-1.3 m/s) MV E' lateral 0.035 (>0.1 m/s) MV A Vmax 0.30 (0.4-1.3 m/s) LV E/e LAT 20.35 (<14) MV E/A Ratio 2.25 MV E/E' medial 18.64 MV E/E' lateral 20.37 Aortic Valve LVOT Area 2.99 cm2 AoV Area Vmax 1.86 cm2 LVOT Vmax 1.00 m/s AoV Area/ BSA (Vmax) 0.76 cm2/m2 LVOT Mean Josue. 0.61 m/s BELLE Mean Josue. 1.76 cm2 LVOT Peak Grad 4.0 mmHg BELLE Mean Josue. Index 0.72 cm2/m2 LVOT Mean Grad 1.8 mmHg AR DT 1428 msec LVOT VTI 0.215 m AR PHT 414 msec LVOT Diam s 1.95 cm AoV Vmax 1.61 m/s Velocity Ratio 0.62 AoV Mean Josue. 1.04 m/s AoV Peak Grad 10.3 mmHg LVOT SV 64.36 mL AoV Mean Grad 5.1 mmHg AoV VTI 0.316 m AoV Area VTI 2.04 cm2 AoV Area/ BSA (VTI) 0.83 cm/m2 Mitral Valve MV DT 153 (160-240 msec) MR Vmax 4.76 m/s MV PHT 44 msec MR VTI 1.564 m MV Area PHT 4.95 cm2 MR Peak Grad 90.6 mmHg MV VTI 0.326 m MR Mean Grad 56.4 mmHg MV VTI Annulus 0.339 m MV Area VTI 2.05 (4.0-6.0 cm2) Pulmonary Valve PV Vmax 0.74 (0.5-1.5 m/s) RVOT Peak Gr. 0.71 mmHg PV Peak Grad 2.2 mmHg RVOT Mean Gr. 0.40 mmHg PV Mean Grad 1.1 mmHg RVOT VTI 0.093 m PV VTI 0.157 m RVOT Vmax 0.42 m/s Tricuspid Valve TR Peak Grad 35.5 mmHg TR Vmax 2.98 m/s RA Pressure 8.00 mmHg RVSP (TR) 43.6 mmHg
--- NOTE | 2022-05-28 13:11 | W.INDIABCONS ---
Date of service: 05/28/22 Time of Service: 13:11 Diabetes Inpatient Consult Reason for Visit: Nutrition consult for wound healing DESCRIPTION/ASSESSMENT: Nutrition consult for wound. Diabetes consult. Mr. Jiménez has a stage 2 lumbar/sacral decubitus ulcer. His A1C is 8 which is likely above target however given his age and comorbities it may be about right. His blood sugars are above target but improving. He gets Glargine 45 units q night. He is getting aspart correction as well at meals. Mr. Jiménez's PO intake has been poor to fair on a carbohydrate consistent, low sodium diet which he needs for his diabetes and CHF. Mr. Jiménez is 183 cm and 122.8 kg. His BMI is 36.7 kg/m2 which is consistent with class 2 obesity. His adjusted ideal body weight is 102 kg. Estimated energy needs: 2400 kcal/day (REE x 1.2) Estimated protein needs: 102 grams to 133 g/day (1.0-1.3 g/kg/day) Estimated fluid needs: 2400 ml/day (unless otherwise advised r/t his CHF): (1 ml/kcal provided/day) INTERVENTION: Would recommend the followin. Shiva supplements (1 pkt, twice daily for 14 days). Physical Geographer to provide. Shiva is a glutamine/arginine supplement for wound healing. 2. 1 oz. liquid protein three times per day-has to be ordered through pharmacy. 3. supervisor telephone answering service to offer high calorie, nutrient dense foods to help him meet his calorie needs so that he does not have to use proteins for calories. 4. He may need tighter control of blood sugars. He may benefit from aspart for his carbohydrate intake or increase in Glargine. PLAN: Will monitor weight, PO, tolerance to supplements, and blood sugars. Will evaluate nutrition care plan ongoing and adjust as needed. Thank you for the consult. Time Spent in Nutritional Counseling and Treatment: 0
[2022-05-28] MEDS: oxyCODONE 5 MG TAB 10 MG PO ×2 (14:12→21:51)
--- NOTE | 2022-05-28 15:55 | CHAPLAIN ---
Napoleon was out of the room getting a CAT scan when I visited. I spoke with this , Gia. Napoleon is a member of the [facility] [employer], and the cheondoism is aware that he is here, according to Gia. Napoleon has been living at the [facility] facility for about a month prior to being admitted here. I will continue to visit and meet in Napoleon.
[2022-05-28 16:26] VITALS: BP 133/67; PULSE 52; RESP 18; TEMP 36.2; O2SAT 97
[2022-05-28] MEDS: Collagenase 30 GM TUBE TP (16:27)
--- NOTE | 2022-05-28 17:15 | PT.INTREAT ---
Date of service: 05/28/22 Time of Service: 17:15 PT Notes Visit Reasons: Congestive heart failure Physical Therapy Inpatient Treatment Note Date: 05/28/2022 Referring Doctor: Barbara Zapata MD PT Orders: PT CONSULT: Limited ability Precautions: Fall. Standard.??WBAT with post op shoes per Dr. Holloway on 05/27/2022 18:20 PM.? Bariatric STEDY lift only to prevent skin tears. Subjective: Agreeable to session this afternoon. Reports 8/10 pain in the L lower extremity, denies pain in the R. States decreased ability to feel in the R foot. Objective: General Observation: Seated in high bedside reclining chair. High BMI.? In NAD.? Abdominal panniculus noted.? On oxygen supplementation via NC.? Dressing over R forefoot.? Swelling in B LE resolving.? Valles catheter in place.? Seat cushion seen. Mental Status: Alert and oriented as to person, place, time, and purpose. Able to pay attention, focus, and respond appropriately. Pain: 7-8/10 pain in L LE and bottom Vital Signs: WNL as closely monitored by nursing staff Bed Mobility/Transfers: Sit to stand from bedside commode contact guard assist, need use of his B UE for support Bedside commode to bedside reclining chair contact guard assist wit FWW Stand to sit onto reclining chair contact guard assist with cues given to use his B UE for support Gait: 5-6 steps to transfer from bedside commode to recliner using FWW with WBAT on R LE and contact guard assist. Reports pain in L LE at 7-8/10. denies headache, chest pain, an dizziness throughout activity. THERA EX: LAQ x5 Seated hip flexion x 5 Ankle DF/PF x 10 Balance: Static Sitting: Good Dynamic Sitting: Good Static Standing: Fair Dynamic Standing: Fair Assessment: As of 05/27/2022 at 18:20 PM sampler first ordered WBAT on R LE with post op shoe on R LE. ? Another post op shoe for the L LE was provided to avoid imbalance from leg length discrepancy that can negatively impact efficiency of walking.? Needs surface height to be high to be able to stand up so patient may stand up from edge of bed and from high chair to progress ambulation activity.? Patient has been not fully ambulatory for the past three months and may take time with ambulation progression.? Patient requires bariatric STEDY lift,? do not use regular lift to avoid skin tears.? Will benefit from skilled OT services. Plan of Care/Treatment Plan: WBAT on R LE with post op shoes. Ensure post op shoe or shoe on L is worn to prevent any leg length discrepancy that can decrease efficiency of walking and increase L LE pain. Pre-medicate for pain. Will work well with ambulation in the first session and exercises in the second as patient has low endurance. DISCHARGE RECOMMENDATIONS: [] ? Home with no services [] [] ? Home with services [specify] [] ? Home with outpatient PT [] [] ? SNF for continued rehabilitation [] [] ? [facility] Care [] [] ? SNF versus LTC based on ability to participate and progress [] [X]? Return to [facility] when medically cleared by hospitalist. Will need resumption of PT and OT services. TREATMENT CODE/TIME:? 62541 x 15 minutes beginning at 17:15 PM.
[2022-05-28 20:00] VITALS: O2SAT 94
[2022-05-28 20:26] VITALS: BP 128/68; PULSE 52
[2022-05-28] MEDS: Atorvastatin 40 MG TAB 80 MG PO (20:29)
[2022-05-28] MEDS: Heparin 5,000 UNITS/ML VIAL 5000 UNITS SC (20:32)
[2022-05-28] MEDS: Tamsulosin 0.4 MG CAPCR PO (21:51)
[2022-05-28] MEDS: traZODone 50 MG TAB 150 MG PO (21:51)
[2022-05-28] MEDS: Omeprazole 20 MG CAPCR PO (21:52)
[2022-05-29] VITALS (9 sets, daily range): BP systolic 116–174; BP diastolic 62–78; PULSE 46–66; RESP 16–25; TEMP 35.9–36.5; O2SAT 91–100
[2022-05-29] MEDS: Acetaminophen 500 MG TAB 1000 MG PO ×3 (05:58→21:20)
[2022-05-29] MEDS: oxyCODONE 5 MG TAB 10 MG PO ×3 (05:58→21:20)
[2022-05-29 07:36] LABS: Abs Immature Grans 0.02 10^3/uL (0.0-0.06); Absolute Basophil Count 0.05 10^3/uL (0.0-0.2); Absolute Eosinophil Count 0.18 10^3/uL (0.0-0.7); Absolute Lymphocyte Count 1.19 10^3/uL (1.2-3.4); Absolute Monocyte Count 0.59 10^3/uL (0.1-0.8); Absolute Neutrophil Count 5.04 10^3/uL (1.2-6.7); Basophils % 0.7; Eosinophils % 2.5; HCT 41.3 % (40.0-50.0); HGB 12.3 g/dL (13.5-17.5); Immature Grans % 0.3; Lymphocytes % 16.8; MCH 25.7 pg (27.0-33.0); MCHC 29.8 % (32.0-36.0); MCV 86 fL (80-95); MPV 12.4 fL (8.0-11.0); Monocytes % 8.3; Neutrophils % 71.4; Platelet Count 103 10^3/uL (130-400); RBC 4.79 10^6/uL (4.36-5.78); RDW 18.3 % (11.8-14.1); RDW-SD 57.6 fL; WBC 7.07 10^3/uL (4.4-10.8)
[2022-05-29 07:55] LABS: Anion Gap 2.1 mmol/L (3-11); BUN 36 mg/dL (7-18); C-Reactive Protein 3.48 mg/dL (0.0-0.3); CO2 36.9 mmol/L (21.0-32.0); CREATININE 1.5 mg/dL (0.70-1.30); Calcium 9.6 mg/dL (8.5-10.1); Chloride 102 mmol/L (98-107); Estimated GFR 45.75 (mL/min/1.73m2); Glucose 103 mg/dL (74-106); Magnesium 2.3 mg/dL (1.8-2.4); Potassium 4.9 mmol/L (3.5-5.1); Sodium 141 mmol/L (136-145)
[2022-05-29] MEDS: Pantoprazole 40 MG TABCR PO (08:23)
[2022-05-29] MEDS: Normal Saline Flush 10 ML SYR IVP (08:23)
[2022-05-29] MEDS: Aspirin E.C. 81 MG TABEC PO (08:24)
[2022-05-29] MEDS: Sertraline 100 MG TAB PO (08:24)
[2022-05-29] MEDS: Potassium Chloride 20 MEQ TABCR 60 MEQ PO ×2 (08:24→20:28)
[2022-05-29] MEDS: Allopurinol 100 MG TAB 200 MG PO (08:24)
[2022-05-29] MEDS: Gabapentin 300 MG CAP 600 MG PO ×3 (08:24→20:28)
[2022-05-29] MEDS: Furosemide 100 MG/10 ML VIAL 80 MG IVP ×2 (08:25→17:05)
[2022-05-29] MEDS: buPROPion-XL 150 MG TABCR PO (08:25)
[2022-05-29] MEDS: Collagenase 30 GM TUBE TP (08:26)
--- NOTE | 2022-05-29 08:27 | PT.INTREAT ---
Date of service: 05/29/22 Time of Service: 07:46 PT Notes Visit Reasons: Congestive heart failure Inpatient Physical Therapy Treatment Note [facility] Date: 05/29/2022 PRECAUTIONS: Fall, activity as tolerated, WBAT with post-op shoes on SUBJECTIVE: Napoleon is pleasant and agreeable to participating in PT. He reports that he has been sitting up in his chair for several hours at this point. He reports that his buttock area is sore, but that overall he is feeling somewhat better. OBJECTIVE: Requested to have nursing look at his buttock area for open areas due to patient c/o soreness. PAIN: See subjective/objective portions of this note. BED MOBILITY/TRANSFERS Sit-supine: Mod A with HOB flat Sit-stand: Mod A x2 from elevated surface; Max A x3 from lower surface post ambulation Stand-sit: Min A x3 Chair-bed: CGA GAIT Assistive Device: Bariatric FWW Weight bearing: WBAT with post-op shoes on Assist: CGA Distance: 8' in a.m.; 4 steps in p.m. Deviation: Fatigued quickly, legs gave out suddenly, required seated rest THEREX: Patient was instructed in a LE strengthening and stabilization program, completed in seated and long-sitting positions, to inlcude: A.M. session: Ankle pumps x10 Heel raises x10 LAQ 2x5 Hip flexion x10 Quad sets 10x 3 secs Glute sets x10 P.M. session: Ankle pumps x10 Quad sets 10x 3 secs Glute sets x10 Heel slides x10 Hip abduction x10 In a.m., patient completes partial [id number] from low surface x5 in attempt to transfer to recliner chair with Max A x3. ASSESSMENT: Patient continues to demonstrate limited activity tolerance, although was able to tolerate a sight progression in gait distance with use of FWW support and CGA. PLAN: Continue with global strengthening and general conditioning for continued advancement toward patient's LT goal of being independent and ambulatory. TREATMENT CODE/TIME: Session 1: 40 minutes; 77758 x2, 60489 (07:46) Session 2: 20 minutes; 55225 (14:18)
[2022-05-29] MEDS: Budesonide/Formoterol 160/4.5 6 GM 60 PUFF INH IH ×2 (08:34→20:27)
[2022-05-29] MEDS: Insulin Glargine 300 UNITS/3 ML PEN 45 UNITS SC (08:46)
[2022-05-29] MEDS: Heparin 5,000 UNITS/ML VIAL 5000 UNITS SC ×2 (08:47→20:30)
--- NOTE | 2022-05-29 09:27 | RESPIRATORY ---
Pt's own ResMed [id number] V-auto BiPAP. Max IPAP: 25 cmH2O Min EPAP: 8 cmH2O PS: 4 cmH2O O2 Bleed In: 2 Lpm
--- NOTE | 2022-05-29 11:20 | PDOC.CMPRO ---
- If Service Date Differs Date of service: 05/29/22 Time of Service: 11:21 Care Management Progress Note S/O: Napoleon remains inpatient at this time. 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 Holloway consulted. Napoleon continues to work with PT and Palliative care is consulted as well. CM continues to follow. A: 76 year old male admitted to [facility] on 05/26/22 for CHF. P: Anticipate, Napoleon will discharge back to [facility] ([facility]) with resumption of [facility] RN/PT/OT when medically ready per provider; anticipate he will require a continuous churn buttermaker course of IV ABX. He will follow up with community providers and discharge plan of care as prescribed. [facility].
[2022-05-29] MEDS: Insulin Aspart 300 UNITS/3 ML PEN SC ×3 (12:32→21:23)
--- NOTE | 2022-05-29 16:10 | W.PM.PROGNOT ---
Date of Service Date of service: 05/29/22 Time of Service: 16:10 Assessment and Plan Assessment and plan (1) Acute on chronic systolic CHF (congestive heart failure): Status: Acute Assessment and plan: Continue IV furosemide, while monitoring I/Os and daily weights. echocardiogram results pending. (2) Thyroid mass of unclear etiology: Status: Acute Assessment and plan: Seen on CT scan of chest: There is a 1.8 x 3.3 cm soft tissue mass in the superior right mediastinum it appears to be contiguous with the right lobe of the thyroid gland.? Thyroid ultrasound should be considered for further evaluation.? ultrasound pending for tomorrow. (3) Pulmonary hypertension: Status: Acute Assessment and plan: As above (4) Chronic respiratory failure with hypoxia: Status: Chronic Assessment and plan: At baseline Would benefit from exercise oximetry prior to discharge when ready. (5) Wound dehiscence, surgical: Status: Acute Assessment and plan: XR R foot negative for osteo, MRI with question of osteo, podiatry consulted[facility] CRP elevated, will trend consider levaquin and metronidazole per previous cultures and previous ID consultation, will call [place] in am to discuss. obtain wound culture here for now,try to arrange for bone culture, will discuss with Dr Parra in am. (had cefepime induced toxicity) can weight bear as tolerated to R foot per podiatry. (6) Diabetes mellitus: Status: Chronic Assessment and plan: A1C 8.0. On basal bolus insulin at home. Will titrate to target of 140-180. (7) DVT prophylaxis: Status: Acute Assessment and plan: SC heparin while carefully mointoring plts (thrombocytopenic), hold if less than 100 (8) Discharge planning issues: Status: Acute Assessment and plan: DNR/DNI Consult palliative care, PT. [facility] ([place] does not have inpatient beds at this time). discussed with DR Wiley Subjective Subjective Patient reports: no new complaints, feels better, tolerating liquids well, tolerating a regular diet and afebrile; denies shortness of breath Objective Last Vital Signs Temp 36 C L 05/29/22 07:20 Pulse 52 L 05/29/22 08:45 Resp 16 05/29/22 07:20 BP 123/67 05/29/22 07:20 Pulse Ox 100 05/29/22 07:20 Laboratory Results - last 24 hr 05/29/22 05/29/22 07:01 07:01 WBC 7.07 RBC 4.79 Hgb 12.3 L Hct 41.3 MCV 86 MCH 25.7 L MCHC 29.8 L RDW 18.3 H Plt Count 103 L MPV 12.4 H Immature Gran % 0.3 Neutrophils % 71.4 Lymphocytes % 16.8 Monocytes % 8.3 Eosinophils % 2.5 Basophils % 0.7 Nucleated RBC % 0.0 Absolute Neutrophils 5.04 Absolute Lymphocytes 1.19 L Absolute Monocytes 0.59 Absolute Eosinophils 0.18 Absolute Basophils 0.05 Sodium 141 Potassium 4.9 Chloride 102 Carbon Dioxide 36.9 H Anion Gap 2.1 L BUN 36 H Creatinine 1.5 H Estimated GFR/1.73 m2 45.75 Glucose 103 Calcium 9.6 Magnesium 2.3 C-Reactive Protein 3.48 H
--- NOTE | 2022-05-29 16:11 | CHAPLAIN ---
Napoleon was up in his chair, visiting with his when I stopped in. They are members of the [facility]. I offered a prayer with them.
[2022-05-29] MEDS: Atorvastatin 40 MG TAB 80 MG PO (20:28)
[2022-05-29] MEDS: traZODone 50 MG TAB 150 MG PO (21:20)
[2022-05-29] MEDS: Omeprazole 20 MG CAPCR PO (21:21)
[2022-05-29] MEDS: Tamsulosin 0.4 MG CAPCR PO (21:21)
[2022-05-30] VITALS (9 sets, daily range): BP systolic 114–148; BP diastolic 62–81; PULSE 48–78; RESP 14–25; TEMP 36.1–37.8; O2SAT 85–98
--- NOTE | 2022-05-30 | DI.US_ITS ---
Exam(s) US THYROID EXAM: US THYROID CLINICAL HISTORY: mass seen on CT. TECHNIQUE: Ultrasound thyroid performed using standard protocol. COMPARISON: CT CT CHEST PE CTA from 05/26/2022 FINDINGS: ISTHMUS: 6 mm RIGHT LOBE: Portions of the inferior right lobe were difficult to visualize. Size: 7.0 x 3.7 x 3.5 cm Echogenicity: Normal. Vascularity: Normal. Nodules: There is a 2.7 x 2.2 x 2.2 cm solid isoechoic nodule in the lower pole. There is an associa segun macrocalcification. It is not taller than wide. The borders are ill-defined. The findings are consistent with a TI rads level 4 nodule. Due to its size, FNA is recommended. LEFT LOBE: Size: 4.3 x 2 x 2.3 cm Echogenicity: Normal. Vascularity: Normal. Nodules: There is a 1.4 x 0.5 x 0.8 cm mixed cystic and solid isoechoic nodule. It has smooth border s and no echogenic foci. It is consistent with a TI rads level 2 nodule. No follow-up is recommende d. OTHER FINDINGS: None. IMPRESSION: 2.7 cm right thyroid nodule. This corresponds to the finding seen on the CT scan. Due to its size, FNA is recommended. DATA REPOSITORY:
[2022-05-30] MEDS: oxyCODONE 5 MG TAB 10 MG PO ×3 (06:17→21:30)
[2022-05-30] MEDS: Acetaminophen 500 MG TAB 1000 MG PO ×3 (06:17→21:30)
[2022-05-30 07:15] LABS: HCT 40.2 % (40.0-50.0); HGB 11.9 g/dL (13.5-17.5); MCH 25.9 pg (27.0-33.0); MCHC 29.6 % (32.0-36.0); MCV 87 fL (80-95); MPV 12.1 fL (8.0-11.0); Platelet Count 111 10^3/uL (130-400); RDW 18.3 % (11.8-14.1); RDW-SD 57.4 fL; WBC 9.12 10^3/uL (4.4-10.8)
[2022-05-30 07:44] LABS: Anion Gap 2.5 mmol/L (3-11); BUN 39 mg/dL (7-18); C-Reactive Protein 3.32 mg/dL (0.0-0.3); CO2 35.5 mmol/L (21.0-32.0); CREATININE 1.5 mg/dL (0.70-1.30); Calcium 9.6 mg/dL (8.5-10.1); Chloride 102 mmol/L (98-107); Estimated GFR 45.75 (mL/min/1.73m2); Glucose 127 mg/dL (74-106); Sodium 140 mmol/L (136-145)
[2022-05-30] MEDS: Budesonide/Formoterol 160/4.5 6 GM 60 PUFF INH IH ×2 (07:56→19:42)
--- NOTE | 2022-05-30 08:35 | PTTR_ITS ---
Date of service: 05/30/22 Time of Service: 07:54 PT Notes Visit Reasons: Congestive heart failure Inpatient Physical Therapy Treatment Note [facility] Date: 05/30/2022 PRECAUTIONS: Fall, activity as tolerated, WBAT with post-op shoes on SUBJECTIVE: Napoleon is pleasant and agreeable to participating in PT. He reports that he is not feeling better nor worse today. OBJECTIVE: PAIN: Patient c/o soreness in buttock area when asked BED MOBILITY/TRANSFERS Sit-stand: Mod A x2 from elevated surface with cueing for safety Stand-sit: CGA x2 with cueing for safety Chair-bed: CGA GAIT Assistive Device: Bariatric FWW Weight bearing: WBAT with post-op shoes on Assist: CGA Distance: 5 steps F/B x2 Deviation: Increased global fatigue, required seated rest THEREX: Patient was instructed in a LE strengthening and stabilization program, to include: A.M. session: Ankle pumps x10 Heel raises x10 Standing weight shifts x8 L/R Standing hip flexion 2x5 with ~4 inch ground clearance In a.m., patient completes partial [id number] from elevated surface x3 in attempt to transfer to recliner chair with Min A. ASSESSMENT: Patient continues to demonstrate limited activity tolerance, altho sandrah was able to tolerate a sight progression in gait distance with use of FWW support and CGA. PLAN: Continue with global strengthening and general conditioning for continued advancement toward patient's LT goal of being independent and ambulatory. TREATMENT CODE/TIME: 26 minutes; 94732, 96587 (07:54)
--- NOTE | 2022-05-30 08:36 | PDOC.CMPRO ---
- If Service Date Differs Date of service: 05/30/22 Time of Service: 08:36 Care Management Progress Note S/O: Napoleon will likely remain inpatient through the weekend and be re-evaluated by Dr. Holloway on Thursday. Per provider, Napoleon will likely require 6 wk IV ABX for treatment of osteomyleitis; Napoleon continues to work with PT and Palliative care is consulted as well. CM continues to follow. A: 76 year old male admitted to [facility] on 05/26/22 for CHF. P: Anticipate, Napoleon will discharge back to [facility] ([facility]) with resumption of [facility] RN/PT/OT when medically ready per provider; anticipate he will require a penitentiary course of IV ABX. He will follow up with community providers and discharge plan of care as prescribed. [facility].
[2022-05-30] MEDS: Furosemide 100 MG/10 ML VIAL 80 MG IVP (09:11)
[2022-05-30] MEDS: Normal Saline Flush 10 ML SYR IVP ×2 (09:12→16:45)
[2022-05-30] MEDS: buPROPion-XL 150 MG TABCR PO (09:13)
[2022-05-30] MEDS: Allopurinol 100 MG TAB 200 MG PO (09:13)
[2022-05-30] MEDS: Potassium Chloride 20 MEQ TABCR 60 MEQ PO ×2 (09:13→19:42)
[2022-05-30] MEDS: Pantoprazole 40 MG TABCR PO (09:13)
[2022-05-30] MEDS: Carvedilol 3.125 MG TAB PO (09:14)
[2022-05-30] MEDS: Heparin 5,000 UNITS/ML VIAL 5000 UNITS SC ×2 (09:14→19:57)
[2022-05-30] MEDS: Aspirin E.C. 81 MG TABEC PO (09:14)
[2022-05-30] MEDS: Gabapentin 300 MG CAP 600 MG PO ×3 (09:14→19:42)
[2022-05-30] MEDS: Sertraline 100 MG TAB PO (09:14)
[2022-05-30] MEDS: Insulin Glargine 300 UNITS/3 ML PEN 45 UNITS SC (09:30)
[2022-05-30] MEDS: Collagenase 30 GM TUBE TP (11:10)
[2022-05-30] MEDS: Insulin Aspart 300 UNITS/3 ML PEN SC ×3 (11:54→21:33)
--- NOTE | 2022-05-30 14:24 | W.PM.PROGNOT ---
Date of Service Date of service: 05/30/22 Time of Service: 14:24 Assessment and Plan Assessment and plan (1) Acute on chronic systolic CHF (congestive heart failure): Status: Acute Assessment and plan: appears euvolemic. stop IV lasix and start home torsemide dosing continue monitoring I/Os and daily weights. echocardiogram results: EF 33% moderate global hypokinesis RSVP 44, moderate mitral and tricuspid regurg on asa, torsemide, coreg, start entresto and jardiance. monitor labs and vitals closely (2) Wound dehiscence, surgical: Status: Acute Assessment and plan: XR R foot negative for osteo, MRI with question of osteo, podiatry consulted[facility] CRP elevated, will trend consider levaquin and metronidazole per previous cultures and previous ID consultation, will call [place] in am to discuss. obtain wound culture here for now,try to arrange for bone culture, discussed with Dr Parra and he feels mri changes could be normal s/p amputation and not represent osteo, CRP is trending downward , will wait and discuss with Dr Holloway on thursday, no antibiotics for now. (had cefepime induced toxicity previously) can weight bear as tolerated to R foot per podiatry. (3) Thyroid mass of unclear etiology: Status: Acute Assessment and plan: Seen on CT scan of chest: There is a 1.8 x 3.3 cm soft tissue mass in the superior right mediastinum it appears to be contiguous with the right lobe of the thyroid gland.? Thyroid ultrasound obtained. (4) Pulmonary hypertension: Status: Acute Assessment and plan: As above (5) Chronic respiratory failure with hypoxia: Status: Chronic Assessment and plan: At baseline Would benefit from exercise oximetry prior to discharge when ready. (6) Diabetes mellitus: Status: Chronic Assessment and plan: A1C 8.0. On basal bolus insulin at home. Will titrate to target of 140-180. (7) DVT prophylaxis: Status: Acute Assessment and plan: SC heparin while carefully mointoring plts (thrombocytopenic), hold if less than 100 (8) Discharge planning issues: Status: Acute Assessment and plan: DNR/DNI Consult palliative care, PT. [facility] ([place] does not have inpatient beds at this time). discussed with DR Wiley Subjective Subjective Patient reports: no new complaints, feels better, tolerating liquids well, tolerating a regular diet and afebrile; denies shortness of breath Exam Const General: cooperative, no acute distress, frail appearing and ill appearing (elderly gentlemen of stated age) Nutritional Appearance: obese Orientation: alert, awake and oriented x3 HENMT Head: normal to inspection, normocephalic and atraumatic Mouth: oral mucosae normal Resp Effort & Inspection: normal respiratory effort Auscultation: clear to auscultation bilaterally and diminished lung sounds (bases) bilaterally Cardio Rate: regular rate Rhythm: regular rhythm GI Inspection: normal to inspection Palpation: soft Auscultation: normal bowel sounds Skin Lesions: lesion noted (right foot) Neuro General: patient alert, patient awake and patient oriented x3 Cognition: normal cognition Extrem General: full ROM and no pedal edema Objective Last Vital Signs Temp 36.1 C L 05/30/22 07:38 Pulse 78 05/30/22 09:11 Resp 18 05/30/22 07:38 BP 121/69 05/30/22 09:11 Pulse Ox 95 05/30/22 09:47 Laboratory Results - last 24 hr 05/30/22 05/30/22 06:10 06:10 WBC 9.12 RBC 4.60 Hgb 11.9 L Hct 40.2 MCV 87 MCH 25.9 L MCHC 29.6 L RDW 18.3 H Plt Count 111 L MPV 12.1 H Sodium 140 Potassium 5.0 Chloride 102 Carbon Dioxide 35.5 H Anion Gap 2.5 L BUN 39 H Creatinine 1.5 H Estimated GFR/1.73 m2 45.75 Glucose 127 H Calcium 9.6 C-Reactive Protein 3.32 H
[2022-05-30] MEDS: Torsemide 20 MG TAB 80 MG PO (16:45)
[2022-05-30] MEDS: Atorvastatin 40 MG TAB 80 MG PO (19:42)
[2022-05-30] MEDS: Sacubitril/Valsartan 24 mg/26 mg TAB 1 EACH PO (19:42)
[2022-05-30] MEDS: Tamsulosin 0.4 MG CAPCR PO (21:30)
[2022-05-30] MEDS: Omeprazole 20 MG CAPCR PO (21:30)
[2022-05-30] MEDS: traZODone 50 MG TAB 150 MG PO (21:30)
[2022-05-31 03:05] VITALS: BP 107/59; PULSE 48; RESP 14; TEMP 36.6; O2SAT 97
[2022-05-31] MEDS: Acetaminophen 500 MG TAB 1000 MG PO ×3 (05:34→21:19)
[2022-05-31 07:00] VITALS: BP 114/71; PULSE 50; RESP 16; TEMP 37.1; O2SAT 98
[2022-05-31 07:29] LABS: Abs Immature Grans 0.01 10^3/uL (0.0-0.06); Absolute Basophil Count 0.03 10^3/uL (0.0-0.2); Absolute Lymphocyte Count 1.06 10^3/uL (1.2-3.4); Absolute Monocyte Count 0.72 10^3/uL (0.1-0.8); Basophils % 0.4; Eosinophils % 2.6; HCT 39.1 % (40.0-50.0); HGB 11.4 g/dL (13.5-17.5); Immature Grans % 0.1; Lymphocytes % 13.9; MCH 25.7 pg (27.0-33.0); MCHC 29.2 % (32.0-36.0); MCV 88 fL (80-95); MPV 11.6 fL (8.0-11.0); Monocytes % 9.4; Neutrophils % 73.6; Platelet Count 114 10^3/uL (130-400); RBC 4.44 10^6/uL (4.36-5.78); RDW 18.3 % (11.8-14.1); RDW-SD 58.1 fL; WBC 7.62 10^3/uL (4.4-10.8)
--- NOTE | 2022-05-31 07:40 | PT.INTREAT ---
Date of service: 05/31/22 Time of Service: 07:15 PT Notes Visit Reasons: Congestive heart failure Inpatient Physical Therapy Treatment Note [facility] Date: 05/31/2022 PRECAUTIONS: Fall, activity as tolerated, WBAT with post-op shoes on SUBJECTIVE: Napoleon is pleasant and agreeable to participating in PT. He reports that he slept well and is feeling alright this morning. OBJECTIVE: PAIN: No c/o pain BED MOBILITY/TRANSFERS Supine-sit: SBA with HOB at 50 degrees Sit-stand: CGA from elevated bed surface with cueing for safety Stand-sit: CGA Bed-chair: CGA x2 GAIT Assistive Device: Bariatric FWW Weight bearing: WBAT with post-op shoes on Assist: CGA x2 Distance: 5' Deviation: Slow santosh, short step height and length THEREX: Patient was instructed in a LE strengthening and stabilization program, to include: Ankle pumps x10 Quad sets x10 Glute sets x10 Heel slides x5 Hip abduction x5 Functional [id number] (achieving full range into standing) from elevated surface 2x3 with CGA and cueing for safety. ASSESSMENT: Patient continues to demonstrate global weakness, although he does demonstrate improved tolerance with ther ex and improved ability to achieve full range with LEs with exercises. PLAN: Continue with global strengthening and general conditioning for continued advancement toward patient's LT goal of being independent and ambulatory. TREATMENT CODE/TIME: 23 minutes; 10227, 11497 (07:15)
[2022-05-31 07:47] LABS: ALT 35 U/L (16-63); AST 28 U/L (15-37); Albumin 2.3 g/dL (3.4-5.0); Alkaline Phosphatase 292 U/L (46-116); Anion Gap 0.8 mmol/L (3-11); BUN 44 mg/dL (7-18); Bilirubin, Total 0.7 mg/dL (0.2-1.0); CO2 38.2 mmol/L (21.0-32.0); CREATININE 1.4 mg/dL (0.70-1.30); Calcium 9.3 mg/dL (8.5-10.1); Chloride 103 mmol/L (98-107); Estimated GFR 49.54 (mL/min/1.73m2); Glucose 107 mg/dL (74-106); Potassium 4.6 mmol/L (3.5-5.1); Sodium 142 mmol/L (136-145); Total Protein 6.3 g/dL (6.4-8.2)
[2022-05-31] MEDS: Budesonide/Formoterol 160/4.5 6 GM 60 PUFF INH IH ×2 (08:37→20:07)
[2022-05-31] MEDS: Heparin 5,000 UNITS/ML VIAL 5000 UNITS SC ×2 (09:14→20:08)
[2022-05-31] MEDS: Potassium Chloride 20 MEQ TABCR 60 MEQ PO ×2 (09:14→20:08)
[2022-05-31] MEDS: Gabapentin 300 MG CAP 600 MG PO ×3 (09:14→20:08)
[2022-05-31] MEDS: Aspirin E.C. 81 MG TABEC PO (09:15)
[2022-05-31] MEDS: Torsemide 20 MG TAB 80 MG PO ×2 (09:15→16:02)
[2022-05-31] MEDS: buPROPion-XL 150 MG TABCR PO (09:16)
[2022-05-31] MEDS: Sacubitril/Valsartan 24 mg/26 mg TAB 1 EACH PO ×2 (09:16→20:09)
[2022-05-31] MEDS: Allopurinol 100 MG TAB 200 MG PO (09:16)
[2022-05-31] MEDS: Empaglifozin 10 MG TAB PO (09:16)
[2022-05-31] MEDS: Carvedilol 3.125 MG TAB PO ×2 (09:16→20:08)
[2022-05-31] MEDS: Sertraline 100 MG TAB PO (09:16)
--- NOTE | 2022-05-31 09:18 | PGE_ITS ---
Date of Service Date of service: 05/31/22 Time of Service: 09:18 Assessment and Plan Assessment and plan (1) Acute on chronic systolic CHF (congestive heart failure): Status: Acute Assessment and plan: appears euvolemic. IV lasix was stopped and home torsemide dosing started continue monitoring I/Os and daily weights. echocardiogram results: EF 33% moderate global hypokinesis RSVP 44, moderate mitral and tricuspid regurg on asa, torsemide, coreg, start entresto and jardiance. monitor labs and vitals closely (2) Wound dehiscence, surgical: Status: Acute Assessment and plan: XR R foot negative for osteo, MRI negative for osteo per Dr Parra's read - a sked [facility]. CRP elevated, trending down consider levaquin and metronidazole per previous cultures and previous ID consultation, will call [facility] to discuss. obtain wound culture here for now,try to arrange for bone culture, discussed with Dr Parra and he feels mri changes could be normal s/p amputation and not represent osteo, CRP is trending downward , will wait and discuss with Dr Holloway on thursday, no antibiotics for now. (had cefepime induced toxicity previously) can weight bear as tolerated to R foot per podiatry. (3) Thyroid mass of unclear etiology: Status: Acute Assessment and plan: Seen on CT scan of chest: There is a 1.8 x 3.3 cm soft tissue mass in the superior right mediastinum it appears to be contiguous with the right lobe of the thyroid gland.? Thyroid ultrasound readin.7 cm right thyroid nodule.? This corresponds to the finding seen on the CT scan.? Due to its size, FNA is recommended. (4) Pulmonary hypertension: Status: Acute Assessment and plan: As above (5) Chronic respiratory failure with hypoxia: Status: Chronic Assessment and plan: At baseline Would benefit from exercise oximetry prior to discharge when ready. (6) Diabetes mellitus: Status: Chronic Assessment and plan: A1C 8.0. On basal bolus insulin at home. Will titrate to target of 140-180. (7) DVT prophylaxis: Status: Acute Assessment and plan: SC heparin while carefully monitoring plts (thrombocytopenic), hold if less than 100 (114 today). (8) Discharge planning issues: Status: Acute Assessment and plan: DNR/DNI Consult palliative care, PT. [facility] ([place] does not have inpatient beds at this time). discussed with Dr Wiley Exam Const General: cooperative, no acute distress, frail appearing and ill appearing (elderly gentlemen of stated age) Nutritional Appearance: obese Orientation: alert, awake and oriented x3 HENMT Head: normal to inspection, normocephalic and atraumatic Mouth: oral mucosae normal Resp Effort & Inspection: normal respiratory effort Auscultation: clear to auscultation bilaterally and diminished lung sounds (bases) bilaterally Cardio Rate: regular rate Rhythm: regular rhythm GI Inspection: normal to inspection Palpation: soft Auscultation: normal bowel sounds Skin Lesions: lesion noted (right foot) Neuro General: patient alert, patient awake and patient oriented x3 Cognition: normal cognition Extrem General: full ROM and no pedal edema Objective Last Vital Signs Temp 37.1 C 05/31/22 07:00 Pulse 50 L 05/31/22 07:00 Resp 16 05/31/22 07:00 BP 114/71 05/31/22 07:00 Pulse Ox 98 05/31/22 07:00 Laboratory Results - last 24 hr 05/31/22 05/31/22 06:20 06:20 WBC 7.62 RBC 4.44 Hgb 11.4 L Hct 39.1 L MCV 88 MCH 25.7 L MCHC 29.2 L RDW 18.3 H Plt Count 114 L MPV 11.6 H Immature Gran % 0.1 Neutrophils % 73.6 Lymphocytes % 13.9 Monocytes % 9.4 Eosinophils % 2.6 Basophils % 0.4 Nucleated RBC % 0.0 Absolute Neutrophils 5.60 Absolute Lymphocytes 1.06 L Absolute Monocytes 0.72 Absolute Eosinophils 0.20 Absolute Basophils 0.03 Sodium 142 Potassium 4.6 Chloride 103 Carbon Dioxide 38.2 H Anion Gap 0.8 L BUN 44 H Creatinine 1.4 H Estimated GFR/1.73 m2 49.54 Glucose 107 H Calcium 9.3 Total Bilirubin 0.7 AST 28 ALT 35 Alkaline Phosphatase 292 H Total Protein 6.3 L Albumin 2.3 L
[2022-05-31] MEDS: Normal Saline Flush 10 ML SYR IVP ×2 (09:21→18:58)
[2022-05-31 09:22] VITALS: PULSE 62
[2022-05-31] MEDS: Insulin Glargine 300 UNITS/3 ML PEN 45 UNITS SC (09:25)
[2022-05-31 10:35] VITALS: O2SAT 95
[2022-05-31] MEDS: oxyCODONE 5 MG TAB 10 MG PO ×2 (10:56→20:09)
[2022-05-31] MEDS: Collagenase 30 GM TUBE TP (11:36)
[2022-05-31] MEDS: Insulin Aspart 300 UNITS/3 ML PEN SC ×3 (12:01→21:18)
--- NOTE | 2022-05-31 14:30 | DSE_ITS ---
Date of service: 06/01/22 Time of Service: 09:00 DS: Diagnosis Discharge Diagnosis (1) Acute on chronic systolic CHF (congestive heart failure): Status: Acute (2) Wound dehiscence, surgical: Status: Acute (3) Thyroid mass of unclear etiology: Status: Acute (4) Pulmonary hypertension: Status: Acute (5) Chronic respiratory failure with hypoxia: Status: Chronic (6) Diabetes mellitus: Status: Chronic (7) DVT prophylaxis: Status: Acute (8) Discharge planning issues: Status: Acute Discharge Plan Disposition Patient Disposition: [facility] W/HOME HEALTH SERVICE Condition: Improving Discharge Details Reason For Visit: CHF Admit Date/Time: 05/26/22 19:13 Admit Provider: Miguel Melendrez Attending Provider: Miguel Melendrez Primary Care Provider: Nasreen Thapa Hospital Course Hospital Course: Napoleon is a 76 male with pmhx of CHf and DM. He had a recent stay in Rehab ([facility]) following a toe amputation, he was at home for 6 days and 05/26/2022 presented to the [facility] ED with complaint of approx one week of increasing SOB, orthopnea and leg swelling. ED findings of initial O2 sats in 80s on RA (mid 90s 2L), bilateral rales, CXR showing CHF with BNP >30938. EKG w/o acute change, trop negative. Patient was given Lasix 20 mg IV in the ED - he takes lasix 80 mg twice a day at home. He reported no change in meds and denied dietary changes. He is treated by Dr Holloway for an infection to his right foot after amputation. MRI is negative for osteomyelitis. The toe is open, draining and has signs of necrosis. A Podiatry consult was done. The wound was debrided by Dr Holloway. Vasular referral to [facility] sent. [facility] he developed a wound on his right ischial tuberosity that is unstageable, and also a wound over his coccyx (1.5 cm x 1.0 cm) also unstageable - deep purple and closed. Wound orders include Collagenase Santyl to the base of the wound covered with a normal saline wet-to-dry bulky dressing consisting of 3 x 3 gauze pads, Kerlix roll, and flex net. He is agreeagble to being discharged to home with resumption of home health services. He resides at [facility], a [facility]. He will start doxycycline 100 mg twice a day for MRSA of his toe wound and continue Jardiance 10 mg daily. His daughter reports that the [facility] @ [facility] continues to bring up hospice care. His goal is to get better and go home; he does not want to discuss Palliative or Hospice care at this time. I cancelled the Palliative care referral. Home Meds and New Rx's Prescriptions: New Jardiance 10 mg Tablet 10 mg PO QAM Qty: 14 0RF doxycycline monohydrate 100 mg capsule 100 mg PO BID Qty: 20 0RF Continued potassium chloride 10 MEQ capsule, extended release 60 meq PO BID aspirin [Aspir-81] 81 MG tablet,delayed release (DR/EC) 81 mg PO DAILY isosorbide mononitrate [Imdur] 60 MG tablet extended release 24 hr 120 mg PO DAILY Symbicort 10.2 GM HFA aerosol inhaler 2 inh Inhalation BID Label Comments: not taking Lantus U-100 Insulin 100 UNITS/ML solution 45 units IJ HS trazodone 50 MG tablet 150 mg PO HS Spiriva with HandiHaler 18 MCG capsule, w/inhalation device 18 mcg Inhalation DAILY Label Comments: not taking promethazine [Phenadoz] 25 MG suppository 25 mg VT Q6H PRN (Reason: Vomiting) Qty: 10 0RF atorvastatin [Lipitor] 80 MG tablet 80 mg PO QAM sennosides 8.6 MG tablet 8.6 mg PO BID PRN PRN bupropion HCl 100 MG tablet extended release 12 hr 100 mg PO DAILY terazosin 2 MG capsule 4 mg PO HS duloxetine [Cymbalta] 60 MG capsule,delayed release(DR/EC) 60 mg PO BID torsemide 20 MG tablet 80 mg PO BID clopidogrel [Plavix] 75 MG tablet 75 mg PO DAILY spironolactone 25 MG tablet 25 mg PO DAILY carvedilol 3.125 MG tablet 3.125 mg PO BID Qty: 60 3RF oxycodone-acetaminophen [Percocet] 10-325 mg Tablet 10 mg PO QID PRN ipratropium-albuterol 0.5 mg-3 mg(2.5 mg base)/3 mL Solution For Nebulization 3 ml INHALATION Q6H PRN carboxymethylcellulose sodium 0.5 % drops 2 drp QID fluticasone propion-salmeterol [Advair Diskus] 500-50 mcg/dose Blister With Device 1 inh INHALATION BID gabapentin 300 mg capsule 600 mg TID bupropion HCl 150 mg tablet extended release 24 hr 150 tab PO DAILY insulin glargine [Basaglar KwikPen U-100 Insulin] 100 unit/mL (3 mL) insulin pen 40 unit SUBCUT DAILY sertraline 100 mg tablet 100 mg PO DAILY tamsulosin 0.4 mg capsule 0.4 mg PO HS omeprazole 20 mg capsule,delayed release(DR/EC) 20 mg HS Lantus U-100 Insulin 100 UNITS/ML solution 45 unit SQ .QAM allopurinol 100 MG tablet 200 mg PO DAILY nitroglycerin 4.9 GM spray,non-aerosol 4.9 gm Translingual PRN PRN Discharge Instructions Instructions: Heart Failure (DC), Leg Edema (ED), Low-Sodium Diet (DC) Additional Instructions: Followup with Dr Holloway Stand Alone Forms: Nursing Discharge Form Referrals: Leonid Madrid MD [ [facility] STAFF PHYSICIAN] - (From Radiology - Thyroid US - 2.7 cm right thyroid nodule.? This corresponds to the finding seen on the CT scan.? Due to its size, FNA is recommended. Please assess and recommend. Thank you Please call Thursday to make an appointment.) Nasreen Thapa [Primary Care Provider] - Bimal Holloway DPM [[facility] STAFF PHYSICIAN] - (Please call Thursday to make a follow up appointment.) Activity:: Activity as Tolerated Equipment/Supplies:: Walker Diet:: Low Sodium Discharge Orders Discharge Orders: Discharge Order (Routine); Ordered 06/01/22 Ordered By: Ambreen Mccullough Discharge Data Discharge Date/Time-TO BE ENTERED AT DEPARTURE: 06/01/22 15:24 DS: Summary Time Spent with Patient providing and/or coordinating discharge services: Greater than 30 minutes Status at Discharge Functional status at discharge: uses cane/walker Overall status at discharge: patient is progressing back to baseline Mental Status: mental status grossly normal Speech and Movement: speech and movement normal Mood: congruent mood Affect: normal affect Exam Const General: cooperative, no acute distress, frail appearing and ill appearing (elderly gentlemen of stated age) Nutritional Appearance: obese Orientation: alert, awake and oriented x3 HENMT Head: normal to inspection, normocephalic and atraumatic Mouth: oral mucosae normal Chest Chest: normal inspection of the chest Resp Effort & Inspection: normal respiratory effort Auscultation: clear to auscultation bilaterally and diminished lung sounds (bases) bilaterally Cardio Rate: regular rate Rhythm: regular rhythm GI Inspection: normal to inspection Palpation: soft Auscultation: normal bowel sounds Skin Lesions: lesion noted (right foot) Neuro General: patient alert, patient awake and patient oriented x3 Cognition: normal cognition Extrem General: full ROM and no pedal edema Psych Mental Status: mental status grossly normal Speech and Movement: speech and movement normal Mood: congruent mood Affect: normal affect DS: Data Vitals/I&O Vitals and I&O: Vital Signs Temperature 37.1 C 05/31/22 07:00 Temperature Source Tympanic 05/31/22 07:00 Pulse 62 05/31/22 09:22 Pulse Rhythm Regular 05/31/22 09:00 Pulse 62 05/26/22 18:46 Respiratory Rate 16 05/31/22 07:00 Respiratory Effort 05/31/22 09:00 Respiratory Depth Normal 05/31/22 09:00 Respiratory Pattern Normal 05/31/22 09:00 Blood Pressure 114/71 05/31/22 07:00 Blood Pressure Mean 85 05/26/22 18:46 Pulse Oximetry 95 05/31/22 10:35 Oxygen Delivery Method Nasal Cannula 05/31/22 10:35 Oxygen Flow Rate 2 05/31/22 10:35 Pain Level 8 05/31/22 10:56 Comment 05/30/22 09:45 Intake & Output 05/30/22 05/31/22 05/31/22 23:59 11:59 23:59 Intake Total 480 / 880 240 / 240 Output Total 2600 / 3875 350 / 1150 800 / 1150 Balance -2120 / -2995 -110 / -910 -800 / -910 Weight 120.6 kg Intake: Oral 480 / 880 240 / 240 Output: Urine 2600 / 3875 350 / 1150 800 / 1150 Other: Urine Color Yellow Light Angie Dark Angie Urine Appearance Clear Clear Clear Urine Odor Normal Voiding Methods Indwelling Catheter Indwelling Catheter Data Completed and Pending Labs on day of discharge: Labs from last 24 hours 05/31/22 05/31/22 06:20 06:20 WBC 7.62 RBC 4.44 Hgb 11.4 L Hct 39.1 L MCV 88 MCH 25.7 L MCHC 29.2 L RDW 18.3 H Plt Count 114 L MPV 11.6 H Immature Gran % 0.1 Neutrophils % 73.6 Lymphocytes % 13.9 Monocytes % 9.4 Eosinophils % 2.6 Basophils % 0.4 Nucleated RBC % 0.0 Absolute Neutrophils 5.60 Absolute Lymphocytes 1.06 L Absolute Monocytes 0.72 Absolute Eosinophils 0.20 Absolute Basophils 0.03 Sodium 142 Potassium 4.6 Chloride 103 Carbon Dioxide 38.2 H Anion Gap 0.8 L BUN 44 H Creatinine 1.4 H Estimated GFR/1.73 m2 49.54 Glucose 107 H Calcium 9.3 Total Bilirubin 0.7 AST 28 ALT 35 Alkaline Phosphatase 292 H Total Protein 6.3 L Albumin 2.3 L Preliminary micro results at discharge 05/29/22 16:20 Wound Culture - Preliminary Foot - Right Staph aureus, MRSA PFSH All Active Problems Acute exacerbation of CHF (congestive heart failure) (Acute) Thyroid mass of unclear etiology (Acute) Discharge planning issues (Acute) Wound dehiscence, surgical (Acute) Chronic respiratory failure with hypoxia (Chronic) Pulmonary hypertension (Acute) Acute on chronic systolic CHF (congestive heart failure) (Acute) CHF (congestive heart failure) (Chronic) DVT prophylaxis (Acute) Diabetes mellitus (Chronic) History of pericarditis (Chronic) [place] (obstructive sleep apnea) (Chronic) CAD (coronary artery disease) (Chronic) Colitis (Acute) Diabetic peripheral neuropathy associated with type 2 diabetes mellitus (Chronic) Acute kidney injury (nontraumatic) (Acute) Abnormal EKG (Acute) Constipation due to pain medication (Chronic) Chronic, continuous use of opioids (Chronic) Diastolic dysfunction (Chronic) Exertional dyspnea (Acute) Ischemic cardiomyopathy (Chronic) Myocardial infarction of inferior wall (Chronic) Social History Smoking/Tobacco Use Status: Former Tobacco Use Tobacco: How many years used: 24 Smoking risk assessment performed?: Yes Alcohol Intake: former Drug use: Never Details: Pt quit alcohol and tobacoo 24 years ago. Do you feel safe at home: Yes Do you feel safe in your relationship?: Yes
[2022-05-31 15:55] VITALS: BP 125/59; PULSE 62; RESP 18; TEMP 36.2; O2SAT 94
--- NOTE | 2022-05-31 16:09 | W.PM.PROGNOT ---
Date of Service Date of service: 05/31/22 Time of Service: 16:09 Assessment and Plan Assessment and plan (1) Acute on chronic systolic CHF (congestive heart failure): Status: Acute Assessment and plan: Torsemide - Monitor I/Os and daily weights. echocardiogram results Left ventricle is moderately dilated. Left ventricular systolic function is moderately decreased. There is normal left ventricular wall thickness. There is no ventricular septal defect visualized. LVEF is 30-35% (2) Thyroid mass of unclear etiology: Status: Acute Assessment and plan: Seen on CT scan of chest: There is a 1.8 x 3.3 cm soft tissue mass in the superior right mediastinum it appears to be contiguous with the right lobe of the thyroid gland.? Thyroid ultrasound should be considered for further evaluation.? ultrasound results .7 cm right thyroid nodule.? This corresponds to the finding seen on the CT scan.? Due to its size, FNA is recommended. ENT referral done. . (3) Pulmonary hypertension: Status: Acute Assessment and plan: As above (4) Chronic respiratory failure with hypoxia: Status: Chronic Assessment and plan: At baseline (5) Wound dehiscence, surgical: Status: Acute Assessment and plan: XR R foot negative for osteo, MRI with question of osteo, podiatry consulted, records from the [place]. CRP elevated, trending down consider levaquin and metronidazole per previous cultures and previous ID consultation, obtain wound culture here, + MRSA - will start doxycycline (had cefepime induced toxicity) can weight bear as tolerated to R foot per podiatry. (6) Diabetes mellitus: Status: Chronic Assessment and plan: A1C 8.0. On basal bolus insulin at home. Will titrate to target of 140-180. (7) DVT prophylaxis: Status: Acute Assessment and plan: SC heparin while carefully monitoring plts (thrombocytopenic), hold if less than 100 today 114 (8) Discharge planning issues: Status: Acute Assessment and plan: [facility] ([place] does not have inpatient beds at this time). Plan to discharge to home - [facility] in [place] - 06/01/2022 w Doxycycline 100 mg BID x 10d ENT referral discussed with Dr. Wiley Subjective Subjective Patient reports: no new complaints, feels better, tolerating a regular diet, voiding w/o difficulty, bowel movement and shortness of breath (improving); denies diarrhea, nausea, vomiting or fever Exam Const General: cooperative, no acute distress, frail appearing and ill appearing (elderly gentlemen of stated age) Nutritional Appearance: obese Orientation: alert, awake and oriented x3 HENMT Head: normal to inspection, normocephalic and atraumatic Mouth: oral mucosae normal Chest Chest: normal inspection of the chest Resp Effort & Inspection: normal respiratory effort Auscultation: clear to auscultation bilaterally and diminished lung sounds (bases) bilaterally Cardio Rate: regular rate Rhythm: regular rhythm GI Inspection: normal to inspection Palpation: soft Auscultation: normal bowel sounds Skin Lesions: lesion noted (right foot) Neuro General: patient alert, patient awake and patient oriented x3 Cognition: normal cognition Extrem General: full ROM and no pedal edema Objective Last Vital Signs Temp 36.2 C L 05/31/22 15:55 Pulse 62 05/31/22 15:55 Resp 18 05/31/22 15:55 BP 125/59 L 05/31/22 15:55 Pulse Ox 94 05/31/22 15:55 Laboratory Results - last 24 hr 05/31/22 05/31/22 06:20 06:20 WBC 7.62 RBC 4.44 Hgb 11.4 L Hct 39.1 L MCV 88 MCH 25.7 L MCHC 29.2 L RDW 18.3 H Plt Count 114 L MPV 11.6 H Immature Gran % 0.1 Neutrophils % 73.6 Lymphocytes % 13.9 Monocytes % 9.4 Eosinophils % 2.6 Basophils % 0.4 Nucleated RBC % 0.0 Absolute Neutrophils 5.60 Absolute Lymphocytes 1.06 L Absolute Monocytes 0.72 Absolute Eosinophils 0.20 Absolute Basophils 0.03 Sodium 142 Potassium 4.6 Chloride 103 Carbon Dioxide 38.2 H Anion Gap 0.8 L BUN 44 H Creatinine 1.4 H Estimated GFR/1.73 m2 49.54 Glucose 107 H Calcium 9.3 Total Bilirubin 0.7 AST 28 ALT 35 Alkaline Phosphatase 292 H Total Protein 6.3 L Albumin 2.3 L
[2022-05-31] MEDS: DOXYCYCLINE 100 MG in Normal Saline 100 ML IVPB (18:49)
[2022-05-31] MEDS: Normal Saline 500 ML 30 ML IV (18:50)
[2022-05-31 19:23] VITALS: BP 134/63; PULSE 61; RESP 16; TEMP 36.9; O2SAT 94
[2022-05-31] MEDS: Atorvastatin 40 MG TAB 80 MG PO (20:08)
[2022-05-31] MEDS: Omeprazole 20 MG CAPCR PO (21:18)
[2022-05-31] MEDS: Tamsulosin 0.4 MG CAPCR PO (21:19)
[2022-05-31] MEDS: traZODone 50 MG TAB 150 MG PO (21:19)
[2022-06-01] MEDS: Acetaminophen 500 MG TAB 1000 MG PO ×2 (05:56→14:03)
[2022-06-01] MEDS: Normal Saline Flush 10 ML SYR IVP ×2 (06:05→08:08)
[2022-06-01] MEDS: DOXYCYCLINE 100 MG in Normal Saline 100 ML IVPB (06:05)
[2022-06-01 07:53] VITALS: BP 122/56; PULSE 48; RESP 20; TEMP 36.4; O2SAT 94
[2022-06-01] MEDS: Ondansetron 4 MG/2 ML VIAL IVP (08:09)
[2022-06-01] MEDS: Gabapentin 300 MG CAP 600 MG PO ×2 (08:09→14:04)
[2022-06-01] MEDS: Aspirin E.C. 81 MG TABEC PO (08:10)
[2022-06-01] MEDS: Potassium Chloride 20 MEQ TABCR 60 MEQ PO (08:10)
[2022-06-01] MEDS: Torsemide 20 MG TAB 80 MG PO (08:10)
[2022-06-01] MEDS: oxyCODONE 5 MG TAB 10 MG PO ×2 (08:10→14:07)
[2022-06-01] MEDS: Sertraline 100 MG TAB PO (08:11)
[2022-06-01] MEDS: buPROPion-XL 150 MG TABCR PO (08:11)
[2022-06-01] MEDS: Allopurinol 100 MG TAB 200 MG PO (08:11)
[2022-06-01] MEDS: Empaglifozin 10 MG TAB PO (08:11)
[2022-06-01] MEDS: Sacubitril/Valsartan 24 mg/26 mg TAB 1 EACH PO (08:11)
[2022-06-01] MEDS: Carvedilol 3.125 MG TAB PO (08:14)
[2022-06-01] MEDS: Heparin 5,000 UNITS/ML VIAL 5000 UNITS SC (08:17)
--- NOTE | 2022-06-01 08:17 | PTTR_ITS ---
Date of service: 06/01/22 Time of Service: 07:46 PT Notes Visit Reasons: Congestive heart failure Inpatient Physical Therapy Treatment Note [facility] Date: 06/01/2022 PRECAUTIONS: Fall, activity as tolerated, WBAT with post-op shoes on SUBJECTIVE: Napoleon is pleasant and agreeable to participating in PT. He reports that he is discharging back to [facility] today. He reports that he is feeling nauseous during treatment session and that he is uncomfortable in his chair. OBJECTIVE: PAIN: Patient c/o L foot pain and R-sided buttock pain. Nursing aware, repositioned patient with pillow under R buttock to off-load painful area, per patient report, decreased pain. BED MOBILITY/TRANSFERS Sit-stand: CGA from recliner chair surface with cueing for safety Stand-sit: CGA GAIT Assistive Device: Bariatric FWW Weight bearing: WBAT with post-op shoes on Assist: CGA Distance: Static standing x2 minutes THEREX: Patient was instructed in a LE strengthening and stabilization program, to include: Ankle pumps 2x10 Heel raises 2x10 Hip flexion 2x10 LAQ 2x10 Functional [id number] (achieving full range into standing) from recliner chair surface x6 with CGA and cueing for safety Standing weight shifts x5 L/R ASSESSMENT: Patient continues to demonstrate global weakness, although he does demonstrate improved tolerance with ther ex and improved ability to achieve full range with LEs with exercises. PLAN: Patient to discharge back to [facility] later today, per provider. Recommend continued rehab efforts for global strengthening and general conditioning for continued progression toward patient's LT goals of independent achievement of functional ADLs and ambulation with FWW. TREATMENT CODE/TIME: 24 minutes; 03282, [id number] (07:46)
[2022-06-01] MEDS: Insulin Glargine 300 UNITS/3 ML PEN 45 UNITS SC (08:21)
[2022-06-01] MEDS: Budesonide/Formoterol 160/4.5 6 GM 60 PUFF INH IH (08:33)
--- NOTE | 2022-06-01 11:06 | WOUNDCONS ---
- If Service Date Differs Date of service: 06/01/22 Time of Service: 11:06 Wound Initial Evaluation Narrative: discharge assessment and pictures - Wound Lumbar/Sacral Wound Type: Pressure Ulcer Pressure Ulcer Stage: Eschar/Unstageable Wound General Appearance: Necrotic, Unapproximated Wound Bed Greatest Portion: Yellow (Slough) Wound Surrounding Tissue Appearance: Normal/Healthy Percent of Wound Bed Slough/Yellow: 100 Wound Length: 1.1 cm Wound Width: 1 cm Wound Depth: 0.1 cm (greater than) Wound Drainage Amount: None Wound Drainage Odor: None/Absent Wound Drainage Description: No drainage Wound Topical Solution/Irrigant: Saline Irrigant Wound Debridement Method: Gauze Wound Debridement Result: Yellow Sloughing Remains Wound Debridement Amount of Tissue Removed: None Right Thigh Wound Type: Diabetic Ulcer Pressure Ulcer Stage: Eschar/Unstageable Wound General Appearance: Necrotic, Unapproximated Wound Bed Greatest Portion: Yellow (Slough) Percent of Wound Bed Slough/Yellow: 100 Wound Length: 0.9 cm Wound Width: 0.6 cm Wound Depth: 0.1 cm (greater than) Wound Drainage Amount: None Wound Drainage Odor: None/Absent Wound Drainage Description: No drainage Wound Topical Solution/Irrigant: Saline Irrigant - Circulation, Sensation, Motion Capillary Refill: Greater than 3 seconds Patient is discharging today to an adult retirement. reccomendations will for dressing care and change will be sent with the patient. Improvement noted in the thigh wound, as it is now smaller. The coccyx wound was a DTI, it is now open and is unstageable at this time. - Photo Photo: - Treatment/Dressing Change Topicals/Ointments: Anasept Gel Cleanse With: Saline Dressing Types: Hydrocollid (Duoderm) - Recomendation Recomendation:: Right Thigh. Clean with Normal Saline, then pat dry. Apply a thin layer of Anasept gel to the wound bed. Apply skin prep to the lul-wound skin. Cover with a half of a Duoderm dressing. Change every 3 days or PRN. Coccyx. Clean with Normal Saline, then pat dry. Apply a thin layer of Anasept gel to the wound bed. Apply skin prep to the lul-wound skin. Cover with a Duoderm dressing. Change every 3 days or PRN. Physcian/Nurse Practioner Notified: Yes () Treatment Time - Time Total Time Spent with Patient: 35 minutes - Patient Will be Seen Weekly Treatment: daily
[2022-06-01] MEDS: Insulin Aspart 300 UNITS/3 ML PEN SC (12:03)
--- NOTE | 2022-06-01 13:30 | PDOC.CMDIS ---
- If Service Date Differs Date of service: 06/01/22 Time of Service: 13:30 LACE Index Scoring Tool - Questions: Length of Stay (in days): 4 - 6 Acuity (Admit via E.D.?): Yes Comorbidities: Diabetes w/o Complication E.D. Visits: 1 - Answers: Total Score: 9 Risk of Readmission: Low Risk Care Management Discharge Reason for Hospitalization: CHF Discharge Plan: Napoleon is discharged back to [facility]) in [place] via private w/c van with daughter Jane. Family coordinated arrival time with Home Provider Marjorie Chow. RX's are transmitted to [facility] in [place]. Resumption of [facility] RN/PT/ORACLE HRMS DEVELOPER services are ordered. Outpt follow up with Palliative is still planned for 06/04/22. Napoleon will call Podiatry Thursday Morning to schedule an outpatient follow up appt. In addition, a follow up appointment with ENT is recommended. ENT will call pt to schedule. Patient/Family Education Needs: Review discharge instructions, medications, limitations and plan to follow up with community providers. ask me three. Services Needed at Discharge: Home Health Care Services ([facility]umption RN, PT, OT, ORACLE HRMS DEVELOPER, CM notified Ally and faxed d/c summmary.)
[2022-06-01] MEDS: Collagenase 30 GM TUBE TP (14:05)
--- NOTE | 2022-06-02 17:40 | PT.INDS ---
Date of service: 05/27/22 PT Notes Visit Reasons: Congestive heart failure Physical Therapy Inpatient Discharge Summary Date: 06/01/2022 Dates of Service: 05/27/2022 through 06/01/2022 This is a clinical summary of care provided for the duration of dates listed above. No charge was made in the completion of this documentation. Referring Doctor: Barbara Zapata MD PT Orders: PT CONSULT: Limited ability Precautions: Fall. Standard.? Activity as tolerated. Patient Profile/Admitting Diagnosis:? Napoleon is a 76-year-old male who presented to the ED on 05/26/2022 due to increasing shortness of breath and bilateral lower extremity edema over the past 1 to 2 weeks.? Patient had a toe [facility] at the [facility] some two to three months ago and needed a repeat surgery for infection a week or two after original surgery.? He stayed at the [facility] for about 2-3 months after surgery but was not allowed to walk due to WB precaution from toe surgery.? Patient is diagnosed with congestive heart failure for this admission with referral for physical therapy for mobility assessment. PMHX: All Active Problems?(Updated 05/26/22 @ 19:09 by Miguel Melendrez MD) CHF (congestive heart failure) (Chronic) DVT prophylaxis (Acute) Diabetes mellitus (Chronic) History of pericarditis (Chronic) CHAPARRO (obstructive sleep apnea) (Chronic) CAD (coronary artery disease) (Chronic) Colitis (Acute) Diabetic peripheral neuropathy associated with type 2 diabetes mellitus (Chronic) Acute kidney injury (non-traumatic) (Acute) Abnormal EKG (Acute) Constipation due to pain medication (Chronic) Chronic, continuous use of opioids (Chronic) Diastolic dysfunction (Chronic) Exertional dyspnea (Acute) Ischemic cardiomyopathy (Chronic) Myocardial infarction of inferior wall (Chronic) Social History/Home Situation: Lives at the [facility] in [place], [place].? stays at their private residence in the same town.? Per patient and , Napoleon has not been mobile and has a wheelchair and a liss lift [facility] the [facility].? Equipment Owned/DME: Wheelchair, liss lift,? FWW Subjective: NT. See most recent HAIR ROOTING MACHINE OPERATOR notes. Objective: General Observation: NT. See most recent HAIR ROOTING MACHINE OPERATOR notes. Mental Status: NT. See most recent HAIR ROOTING MACHINE OPERATOR notes. Pain: NT. See most recent HAIR ROOTING MACHINE OPERATOR notes. Vital Signs: NT. See most recent HAIR ROOTING MACHINE OPERATOR notes. ROM: Right Upper Extremity: ? Shoulder Flexion allows only up to 90 degrees.? Shoulder abduction allows only up to 90 degrees. Elbow flexion WFL. Wrist flexion WFL. Functional opening and closing of hand WFL. Left Upper Extremity:? Shoulder Flexion allows only up to 90 degrees.? Shoulder abduction allows only up to 90 degrees. Elbow flexion WFL. Wrist flexion WFL. Functional opening and closing of hand WFL. Right Lower Extremity: Hip flexion limited to 90 degrees, unable to bedn any further beyond 90 when seated at edge of chair. Hip abduction about 10 degrees. Knee flexion 20 degrees to 90 degrees. Knee extension -20 degree.? Ankle dorsiflexion to neutral only. Ankle plantarflexion WFL. Left Lower Extremity: Hip flexion limited to 90 degrees, unable to bedn any further beyond 90 when seated at edge of chair. Hip abduction about 10 degrees. Knee flexion 20 degrees to 90 degrees. Knee extension -20 degree.? Ankle dorsiflexion to neutral only. Ankle plantarflexion WFL. Strength: Right Upper Extremity: Shoulder flexors 3-/5. Shoulder abductors 3-/5. Elbow flexors 3-/5. Elbow extensors 4-/5. Boat Loader Helper strong. Left Upper Extremity: Shoulder flexors 3-/5. Shoulder abductors 3-/5. Elbow flexors 3-/5. Elbow extensors 4-/5. Boat Loader Helper strong. Right Lower Extremity: Hip flexors 3-/5. Hip abductors 3-/5. Knee flexors 3-/5. Knee extensors 3-/5. Ankle dorsiflexors 3-/5. Ankle plantarflexors 4-/5. Left Lower Extremity: Hip flexors 3-/5. Hip abductors 3-/5. Knee flexors 3-/5. Knee extensors 3-/5. Ankle dorsiflexors 3-/5. Ankle plantarflexors 4-/5. BED MOBILITY/TRANSFERS? Sit-stand: CGA from recliner chair surface with cueing for safety ? Stand-sit: CGA ? GAIT? Assistive Device: Bariatric FWW? Weight bearing: WBAT with post-op shoes on Assist: CGA? Distance:? Static standing x2 minutes ? Balance: Static Sitting: Good Dynamic Sitting: Good Static Standing: Fair Dynamic Standing: Poor Assessment: Patient has been non-ambulatory for a couple of months now but is hoping to improve his mobility level while here.? Requires assistance of two people for safety.? Will complete assessment and see how patient performs later in the day from a chair with low height.? Will consult with MD regarding weight bearing precaution on R LE.? Patient presents with clinical signs and symptoms consistent with current/admitting diagnoses that have resulted to mobility limitations, gait instability, generalized weakness, and overall ADL decline as demonstrated by the following impairment level findings: 1.? Decreased strength to B UE/LE major muscle groups 2.? Impaired sitting/standing balance 3.? Impaired activity tolerance 4.? Limitation of joint range of motion in B shoudlers, hips, and knees 5.? Shortness of breath 6.? Swelling in B LE Impairments are contributing to the following functional limitations: 1.? Decline in bed mobility skills 2.? Decline in transfer skills 3.? Difficulty with ambulation without assistive device and physical assistance 4.? Increased completion time for mobility ADL performance 5.? Increased risk for falls 6.? Difficulty with managing steps alone safely Goals: Goals X1 week 1. Supine-Sit independent NOT MET 2. Sit-Supine independent NOT MET 3. Sit-Stand independent NOT MET 4. Stand-Sit stand by assist with FWW NOT MET 5. Bed-Chair stand by assist with FWW NOT MET 6. Chair-Bed stand by assist with FWW NOT MET 7. Contact guard assist gait on level surface with use of FWW for at least 15 feet without report of pain nor dyspnea NOT MET 8. Good static and dynamic standing balance/tolerance NOT MET DISCHARGE RECOMMENDATIONS: [] ? Home with no services [] [] ? Home with services [specify] [] ? Home with outpatient PT [] [] ? SNF for continued rehabilitation [] [] ? Assisted Care [] [] ? SNF versus LTC based on ability to participate and progress [] [X]? SNF vs GROUP HOME depennding on progress towards goals TREATMENT CODE/TIME: CO Thank you for the opportunity to participate in the care of this patient. Elisa Law PT, DPT, CLT [facility] [place], [place]
== END 2022-06-01 15:24 | disposition designated cancer center or children's hospital (05) | DRG 264 ==
LOC: ER 19:28 → MS 21:21
PROVIDERS: Family Medicine; Internal Medicine; Nurse Practitioner Acute Care; Admitting Provider General Practice; Emergency Provider Student in an Organized Health Care Education/Training Program; PCP Nurse Practitioner Primary Care; Visit Provider General Practice
DX: I50.23 Acute on chronic systolic (congestive) heart failure (principal); J96.11 Chronic respiratory failure with hypoxia; N17.9 Acute kidney failure, unspecified; I27.20 Pulmonary hypertension, unspecified; E11.65 Type 2 diabetes mellitus with hyperglycemia; E11.42 Type 2 diabetes mellitus with diabetic polyneuropathy; E66.9 Obesity, unspecified; Z68.35 Body mass index [BMI] 35.0-35.9, adult; I25.5 Ischemic cardiomyopathy; G47.33 Obstructive sleep apnea (adult) (pediatric); R94.31 Abnormal electrocardiogram [ECG] [EKG]; K59.03 Drug induced constipation; T40.2X5A Adverse effect of other opioids, initial encounter; I25.10 Atherosclerotic heart disease of native coronary artery without angina pectoris; I25.2 Old myocardial infarction; Z87.891 Personal history of nicotine dependence; Z79.4 Long term (current) use of insulin; Z66 Do not resuscitate; T87.81 Dehiscence of amputation stump; E11.51 Type 2 diabetes mellitus with diabetic peripheral angiopathy without gangrene; E07.9 Disorder of thyroid, unspecified
CPT/HCPCS: 11042; 36415; 51702; 71275; 80048; 80053; 84145; 85027; 87077; 87635; 93005; 93306; 94640; 96374; 97110; 97163; 97530; 99285; 71045; 73630; 73720; 76536; 83036; 83735; 83880; 84443; 84484; 85025; 85049; 85379; 86140; 87070; 87186; 87205; 93010; 94660; 94664; 94760; 99222; 99232; 99233; J1644; J1940; J1941; J2405; J3490

== ENCOUNTER 2022-06-08 11:28 | Observation (INO) | payer OTHER, SELFPAY ==
[2022-06-08] VITALS (10 sets, daily range): BP systolic 116–155; BP diastolic 5–71; PULSE 50–78; RESP 16–24; TEMP 36.3–36.8; O2SAT 86–97
--- NOTE | 2022-06-08 11:30 | RT.EKG_ITS ---
APPROVED REPORT Exam: Resting ECG Reason for Exam: shortness of breath Patient Location: E HR:77 bpm ECG Measurements Heart Rate 77 AXIS OK 176 P -18 QRSd 103 QRS 5 QT 408 T [id number] QTc 463 Conclusion Sinus rhythm...normal P axis, V-rate 60- 99 Low voltage, extremity leads...all extremity leads <0.5mV
--- NOTE | 2022-06-08 11:45 | DI.RAD_ITS ---
Exam(s) XR PORTABLE CHEST AP EXAM: XR PORTABLE CHEST AP CLINICAL HISTORY: SOB, hx of CHF TECHNIQUE: 2D digital imaging was performed. COMPARISON: CT CT CHEST PE CTA from 05/26/2022 CR,XR XR PORTABLE CHEST AP from 05/26/2022 FINDINGS: LUNGS: Stable size moderate bilateral pleural effusions and adjacent atelectasis, right greater than left. HEART: Enlarged. Status post CABG. Stable pulmonary vascular prominence. AORTA: Normal. BONES: Sternal wires. Degenerative changes in the shoulders and spine. Soft tissues: Unremarkable. IMPRESSION: Stable appearance of bilateral pleural effusions. DATA REPOSITORY: RADIATION DOSE DELIVERED:
--- NOTE | 2022-06-08 11:47 | ED.GENADUL_ITS ---
Discharge Plan Disposition Patient Disposition: [facility] INPATIENT Condition: Improving Discharge Details Clinical Impression: Acute on chronic systolic CHF (congestive heart failure) Primary Care Provider: Nasreen Thapa ED Provider: Damon Moreau Home Meds and New Rx's Prescriptions: No Action duloxetine [Cymbalta] 60 mg capsule,delayed release(DR/EC) 60 mg PO BID Qty: 60 0RF Rx Instructions: 06/08/22 none in home spironolactone 25 mg tablet 25 mg PO DAILY Qty: 30 0RF terazosin 2 mg capsule 4 mg PO HS Qty: 30 0RF potassium chloride 10 MEQ capsule, extended release 60 meq PO BID aspirin [Aspir-81] 81 MG tablet,delayed release (DR/EC) 81 mg PO DAILY isosorbide mononitrate [Imdur] 60 MG tablet extended release 24 hr 120 mg PO DAILY budesonide-formoterol [Symbicort] 10.2 GM HFA aerosol inhaler 2 inh Inhalation BID Label Comments: not taking insulin glargine [Lantus U-100 Insulin] 100 UNITS/ML solution 45 units HS trazodone 50 MG tablet 150 mg PO HS Spiriva with HandiHaler 18 MCG capsule, w/inhalation device 18 mcg Inhalation DAILY Label Comments: not taking atorvastatin [Lipitor] 80 MG tablet 80 mg PO QAM sennosides 8.6 MG tablet 8.6 mg PO BID PRN PRN torsemide 20 MG tablet 80 mg PO BID clopidogrel [Plavix] 75 MG tablet 75 mg PO DAILY carvedilol 3.125 MG tablet 3.125 mg PO BID Qty: 60 3RF oxycodone-acetaminophen [Percocet] 10-325 mg Tablet 10 mg PO QID PRN ipratropium-albuterol 0.5 mg-3 mg(2.5 mg base)/3 mL Solution For Nebulization 3 ml INHALATION Q6H PRN carboxymethylcellulose sodium 0.5 % drops 2 drp QID fluticasone propion-salmeterol [Advair Diskus] 500-50 mcg/dose Blister With Device 1 inh INHALATION BID bupropion HCl 150 mg tablet extended release 24 hr 150 tab PO DAILY sertraline 100 mg tablet 100 mg PO DAILY tamsulosin 0.4 mg capsule 0.4 mg PO HS omeprazole 20 mg capsule,delayed release(DR/EC) 20 mg HS Jardiance 10 mg Tablet 10 mg PO QAM Qty: 14 0RF doxycycline monohydrate 100 mg capsule 100 mg PO BID Qty: 20 0RF gabapentin 300 mg capsule 600 mg PO TID insulin glargine [Lantus U-100 Insulin] 100 UNITS/ML solution 45 unit SQ .QAM allopurinol 100 MG tablet 200 mg PO DAILY nitroglycerin 4.9 GM spray,non-aerosol 4.9 g Translingual PRN PRN Medical Decision Making 76-year-old male presents from home with complaint of transient shortness of breath. He has noted weight gain over known dry weight. Patient prescriptions include Imdur 120 mg daily, Cymbalta 60 mg daily, spironolactone 25 mg daily, Plavix once daily, terazosin. The patient is in a snf and they report that he has not had these medications available for approximately 1 week. On arrival the patient demonstrates normal mental status and conversation. He is normotensive and oxygenating normally. His exam does reveal lower extremity edema and his weight is approximately 8 to 9 pounds up over previous dry weight. Chest x-ray reveals no significant interval change. Right greater than left pleural effusion with mild vascular congestion. Laboratories: White count of 8, hematocrit 37, platelets 164. Chemistry reveals improved renal function with a creatinine of 1.1, and elevated troponin of 115, and elevated BNP at 21,510. Given the patient's positive medications at home for approximately 1 week, his presentation and diagnostic findings, this is most consistent with acute on chronic congestive heart failure with a component of demand ischemia. He is stable, diuresing, and is appropriate for admission. Lab Data Lab results reviewed: Yes I reviewed the patient's lab results. Labs: Laboratory Results - last 24 hr 06/08/22 06/08/22 06/08/22 12:45 12:45 12:45 WBC Cancelled RBC Cancelled Hgb Cancelled Hct Cancelled MCV Cancelled MCH Cancelled MCHC Cancelled RDW Cancelled Plt Count Cancelled MPV Cancelled Immature Gran % Cancelled Neutrophils % Cancelled Band Neutrophils % Cancelled Lymphocytes % Cancelled Atypical Lymphs % Cancelled Monocytes % Cancelled Eosinophils % Cancelled Basophils % Cancelled Metamyelocytes % Cancelled Myelocytes % Cancelled Promyelocytes % Cancelled Other Cells % Cancelled Nucleated RBC % Cancelled Absolute Neutrophils Cancelled Absolute Lymphocytes Cancelled Absolute Monocytes Cancelled Absolute Eosinophils Cancelled Absolute Basophils Cancelled RBC Morphology Cancelled Polychromasia Cancelled Hypochromasia Cancelled Poikilocytosis Cancelled Basophilic Stippling Cancelled Anisocytosis Cancelled Microcytosis Cancelled Macrocytosis Cancelled Spherocytes Cancelled Tear Drop Cells Cancelled Ovalocytes Cancelled Stomatocytes Cancelled [place] Bodies Cancelled [place] Cells/Echinocytes Cancelled Acanthocytes (Spur) Cancelled Schistocytes Cancelled Sodium Cancelled Potassium Cancelled Chloride Cancelled Carbon Dioxide Cancelled Anion Gap Cancelled BUN Cancelled Creatinine Cancelled Estimated GFR/1.73 m2 Cancelled Glucose Cancelled Calcium Cancelled Magnesium Cancelled Cancelled Total Bilirubin Cancelled AST Cancelled ALT Cancelled Alkaline Phosphatase Cancelled Troponin I Cancelled Cancelled NT-Pro-B Natriuret Pep Cancelled Cancelled Total Protein Cancelled Albumin Cancelled COVID-19 Source SARS-CoV-2 (PCR) 06/08/22 06/08/22 06/08/22 13:11 13:11 14:14 WBC 8.90 RBC 4.38 Hgb 11.4 L Hct 37.3 L MCV 85 MCH 26.0 L MCHC 30.6 L RDW 18.1 H Plt Count 164 MPV 10.7 Immature Gran % 0.3 Neutrophils % 79.4 Band Neutrophils % Lymphocytes % 9.0 Atypical Lymphs % Monocytes % 7.5 Eosinophils % 3.1 Basophils % 0.7 Metamyelocytes % Myelocytes % Promyelocytes % Other Cells % Nucleated RBC % 0.0 Absolute Neutrophils 7.06 H Absolute Lymphocytes 0.80 L Absolute Monocytes 0.67 Absolute Eosinophils 0.28 Absolute Basophils 0.06 RBC Morphology Polychromasia Hypochromasia Poikilocytosis Basophilic Stippling Anisocytosis Microcytosis Macrocytosis Spherocytes Tear Drop Cells Ovalocytes Stomatocytes [place] Bodies [place] Cells/Echinocytes Acanthocytes (Spur) Schistocytes Sodium 145 Potassium 3.5 Chloride 102 Carbon Dioxide 40.4 H Anion Gap 2.6 L BUN 32 H Creatinine 1.1 Estimated GFR/1.73 m2 >= 60.00 Glucose 136 H Calcium 9.1 Magnesium 2.0 Total Bilirubin 0.8 AST 26 ALT 36 Alkaline Phosphatase 297 H Troponin I 115 H* NT-Pro-B Natriuret Pep 50392 H Total Protein 6.7 Albumin 2.3 L COVID-19 Source Nasal/Nares SARS-CoV-2 (PCR) Negative 06/08/22 15:00 WBC RBC Hgb Hct MCV MCH MCHC RDW Plt Count MPV Immature Gran % Neutrophils % Band Neutrophils % Lymphocytes % Atypical Lymphs % Monocytes % Eosinophils % Basophils % Metamyelocytes % Myelocytes % Promyelocytes % Other Cells % Nucleated RBC % Absolute Neutrophils Absolute Lymphocytes Absolute Monocytes Absolute Eosinophils Absolute Basophils RBC Morphology Polychromasia Hypochromasia Poikilocytosis Basophilic Stippling Anisocytosis Microcytosis Macrocytosis Spherocytes Tear Drop Cells Ovalocytes Stomatocytes [place] Bodies [place] Cells/Echinocytes Acanthocytes (Spur) Schistocytes Sodium Potassium Chloride Carbon Dioxide Anion Gap BUN Creatinine Estimated GFR/1.73 m2 Glucose Calcium Magnesium Total Bilirubin AST ALT Alkaline Phosphatase Troponin I 115 H* NT-Pro-B Natriuret Pep Total Protein Albumin COVID-19 Source SARS-CoV-2 (PCR) HPI General Mode of arrival: EMS . Date/Time Provider Initiated Documentation: 06/08/22 11:46 . Limitations to Documentation: no limitations . Information obtained by: patient and EMS . History of Present Illness 76 year old M presents to the emergency department with the chief complaint of Shortness of shortness of breath over 2 to 3 weeks, and edema, described as mild, and is localized to the chest. Patient reports no radiation. Patient started experiencing this hour(s) and it has been now resolved. No relieving factors improve symptom(s), No exacerbating factors reported . Patient notes other (Chronic cough, no chest pain. Mild shortness of breath that is improved. Peripheral edema with weight gain of approximately 8 pounds). Patient did receive the following treatments prior to arrival, none Related Data Home Medications Medication Instructions Recorded Confirmed aspirin 81 mg tablet,delayed 81 mg PO DAILY 01/08/14 06/08/22 release (Aspir-) budesonide-formoterol HFA 160 2 inh inhalation BID 01/08/14 06/08/22 mcg-4.5 mcg/actuation aerosol inhaler (Symbicort) insulin glargine 100 unit/mL 45 units HS 01/08/14 06/08/22 subcutaneous solution (Lantus U-100 Insulin) isosorbide mononitrate 60 mg 120 mg PO DAILY 01/08/14 06/05/22 tablet,extended release 24 hr (Imdur) potassium chloride 10 mEq 60 meq PO BID 01/08/14 06/08/22 capsule,extended release tiotropium bromide 18 mcg capsule 18 mcg inhalation DAILY 01/08/14 06/08/22 with inhalation device (Spiriva with HandiHaler) trazodone 50 mg tablet 150 mg PO HS 01/08/14 06/08/22 allopurinol 100 mg tablet 200 mg PO DAILY 10/16/16 06/08/22 insulin glargine 100 unit/mL 45 unit SQ .QAM 10/16/16 06/08/22 subcutaneous solution (Lantus U-100 Insulin) nitroglycerin 400 mcg/spray 4.9 g translingual PRN PRN 10/16/16 06/08/22 translingual atorvastatin 80 mg tablet (Lipitor) 80 mg PO QAM 09/07/17 06/08/22 sennosides 8.6 mg tablet 8.6 mg PO BID PRN PRN 09/07/17 06/08/22 clopidogrel 75 mg tablet (Plavix) 75 mg PO DAILY 10/07/17 06/05/22 torsemide 20 mg tablet 80 mg PO BID 10/07/17 06/08/22 carvedilol 3.125 mg tablet 3.125 mg PO BID #60 tabs 10/12/17 06/08/22 oxycodone-acetaminophen 10 mg-325 10 mg PO QID PRN 09/21/18 06/08/22 mg tablet (Percocet) bupropion HCl 150 mg 24 hr tablet, 150 tab PO DAILY 05/26/22 06/08/22 extended release carboxymethylcellulose sodium 0.5 2 drp QID 05/26/22 06/08/22 % eye drops fluticasone 500 mcg-salmeterol 50 1 inh inhalation BID 05/26/22 06/08/22 mcg/dose blistr powdr for inhalation (Advair Diskus) ipratropium 0.5 mg-albuterol 3 mg 3 ml inhalation Q6H PRN 05/26/22 06/08/22 (2.5 mg base)/3 mL nebulization soln omeprazole 20 mg capsule,delayed 20 mg HS 05/26/22 06/08/22 release sertraline 100 mg tablet 100 mg PO DAILY 05/26/22 06/08/22 tamsulosin 0.4 mg capsule 0.4 mg PO HS 05/26/22 06/08/22 doxycycline monohydrate 100 mg 100 mg PO BID #20 caps 05/31/22 06/08/22 capsule empagliflozin 10 mg tablet 10 mg PO QAM #14 tabs 05/31/22 06/08/22 (Jardiance) duloxetine 60 mg capsule,delayed 60 mg PO BID #60 caps 06/05/22 06/05/22 release (Cymbalta) gabapentin 300 mg capsule 600 mg PO TID 06/05/22 06/08/22 spironolactone 25 mg tablet 25 mg PO DAILY #30 tabs 06/05/22 06/05/22 terazosin 2 mg capsule 4 mg PO HS #30 caps 06/05/22 06/05/22 Previous Rx's Medication Instructions Recorded carvedilol 3.125 mg tablet 3.125 mg PO BID #60 tabs 10/12/17 doxycycline monohydrate 100 mg 100 mg PO BID #20 caps 05/31/22 capsule empagliflozin 10 mg tablet 10 mg PO QAM #14 tabs 05/31/22 (Jardiance) duloxetine 60 mg capsule,delayed 60 mg PO BID #60 caps 06/05/22 release (Cymbalta) spironolactone 25 mg tablet 25 mg PO DAILY #30 tabs 06/05/22 terazosin 2 mg capsule 4 mg PO HS #30 caps 06/05/22 Allergies Allergy/AdvReac Type Severity Reaction Status Date / Time Penicillins Allergy Anaphylaxsi Unverified 06/08/22 11:47 s metoprolol AdvReac Very low Unverified 06/08/22 11:47 pulse General Stated Complaint: GenMedical MAIN: 3 Review of Systems Narrative: 6 systems reviewed and otherwise - PFSH All Active Problems (Updated 06/08/22 @ 14:27 by Damon Moreau MD) Thyroid mass of unclear etiology (Acute) Wound dehiscence, surgical (Acute) Pulmonary hypertension (Acute) Acute on chronic systolic CHF (congestive heart failure) (Acute) Diabetes mellitus (Chronic) History of pericarditis (Chronic) [place]O (obstructive sleep apnea) (Chronic) CAD (coronary artery disease) (Chronic) Colitis (Acute) Diabetic peripheral neuropathy associated with type 2 diabetes mellitus (Chronic) Acute kidney injury (nontraumatic) (Acute) Abnormal EKG (Acute) Constipation due to pain medication (Chronic) Chronic, continuous use of opioids (Chronic) Diastolic dysfunction (Chronic) Exertional dyspnea (Acute) Ischemic cardiomyopathy (Chronic) Myocardial infarction of inferior wall (Chronic) Medical History (Updated 06/08/22 @ 14:27 by Damon Moreau MD) Chronic respiratory failure with hypoxia Social History Smoking/Tobacco Use Status: Former Tobacco Use Tobacco: How many years used: 24 Smoking risk assessment performed?: Yes Alcohol Intake: former Drug use: Never Details: Pt quit alcohol and tobacoo 24 years ago. Do you feel safe at home: Yes Do you feel safe in your relationship?: Yes Exam Narrative Exam Narrative: GEN: awake, alert, oriented 3. Pleasant, well groomed, interactive. HEAD: Normocephalic, atraumatic ENT: Mucous membranes moist, oropharynx unremarkable, External ear exam unremarkable EYES: PERRL, EOMI NECK: Full ROM, no ELISE, no menigismus CHEST/RESP: Nontender, distant with faint basilar CARDIOVASCULAR: Distant, RRR, no murmur, rub arcelia. 2+ Rad pulse bilateral ABDOMEN: Soft, nontender, no mass. +Bowel sounds. Patient has a second skin dressing on his coccyx. There is no erythema or tenderness to my exam. EXT: Full ROM, right great toe surgically absent. 2+ pitting edema bilateral Neuro: Grossly normal neurologic exam, conversant, interactive. Psych: Speech fluent, thoughts congruent, affect normal Course Vital Signs Vital signs: Vital Signs Temperature 36.7 C 06/08/22 11:36 Pulse 78 06/08/22 11:36 Respiratory Rate 24 06/08/22 11:36 Blood Pressure 143/59 H 06/08/22 11:36 Pulse Oximetry 97 06/08/22 11:36 Temperature 36.7 C 06/08/22 11:36 Temperature Source Tympanic 06/08/22 11:36 Pulse 78 06/08/22 11:36 Respiratory Rate 24 06/08/22 11:36 Blood Pressure 143/59 H 06/08/22 11:36 Blood Pressure Position Sitting 06/08/22 11:36 Pulse Oximetry 97 06/08/22 11:36 Oxygen Delivery Method Nasal Cannula 06/08/22 11:36 Oxygen Flow Rate 0 06/08/22 11:36 End Tidal Co2 2 06/08/22 11:36
--- NOTE | 2022-06-08 13:08 | DI.VRAD_ITS ---
PROCEDURE INFORMATION: Exam: XR Chest Exam date and time: 06/08/2022 12:09 PM Age: 76 years old Clinical indication: Other: SOB, HX of chf TECHNIQUE: Imaging protocol: Radiologic exam of the chest. Views: 1 view. COMPARISON: CR XR PORTABLE CHEST AP 05/26/2022 5:29 PM FINDINGS: Lungs: There is bibasilar atelectasis or airspace disease. There is probable mild vascular congestion. The lungs are unchanged in appearance Pleural spaces: There is right greater than left pleural effusion. Pneumothorax is not seen Heart/Mediastinum: Heart, mediastinum are unchanged Bones/joints: Patient has had prior median sternotomy, CABG. No new bony abnormality IMPRESSION: No significant interval change. Right greater than left pleural effusion with associated basilar atelectasis or airspace disease. Probable mild vascular congestion. Dictated and Authenticated by: Moira Cortez MD. Ordering:BART Jose MD
[2022-06-08 13:21] LABS: Abs Immature Grans 0.03 10^3/uL (0.0-0.06); Absolute Basophil Count 0.06 10^3/uL (0.0-0.2); Absolute Eosinophil Count 0.28 10^3/uL (0.0-0.7); Absolute Monocyte Count 0.67 10^3/uL (0.1-0.8); Absolute Neutrophil Count 7.06 10^3/uL (1.2-6.7); Basophils % 0.7; Eosinophils % 3.1; HCT 37.3 % (40.0-50.0); HGB 11.4 g/dL (13.5-17.5); Immature Grans % 0.3; MCHC 30.6 % (32.0-36.0); MCV 85 fL (80-95); MPV 10.7 fL (8.0-11.0); Monocytes % 7.5; Neutrophils % 79.4; Platelet Count 164 10^3/uL (130-400); RBC 4.38 10^6/uL (4.36-5.78); RDW 18.1 % (11.8-14.1); RDW-SD 56.2 fL
[2022-06-08 13:47] LABS: ALT 36 U/L (16-63); AST 26 U/L (15-37); Albumin 2.3 g/dL (3.4-5.0); Alkaline Phosphatase 297 U/L (46-116); Anion Gap 2.6 mmol/L (3-11); BUN 32 mg/dL (7-18); Bilirubin, Total 0.8 mg/dL (0.2-1.0); CO2 40.4 mmol/L (21.0-32.0); CREATININE 1.1 mg/dL (0.70-1.30); Calcium 9.1 mg/dL (8.5-10.1); Chloride 102 mmol/L (98-107); Glucose 136 mg/dL (74-106); NT-proBNP 21510 pg/mL (<300); Potassium 3.5 mmol/L (3.5-5.1); Sodium 145 mmol/L (136-145); Total Protein 6.7 g/dL (6.4-8.2)
[2022-06-08 13:48] LABS: Troponin I 115 ng/L (<or=60)
[2022-06-08 14:17] LABS: Source Nasal/Nares
[2022-06-08 14:50] LABS: COVID-19 PCR Negative (Negative)
[2022-06-08] MEDS: Furosemide 100 MG/10 ML VIAL 80 MG IVP (14:54)
[2022-06-08] MEDS: Clopidogrel 75 MG TAB PO (14:54)
[2022-06-08 15:28] LABS: Troponin I 115 ng/L (<or=60)
--- NOTE | 2022-06-08 16:48 | W.PM.HP.N ---
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 A family member did go pick it up this afternoon. We will continue to diurese - he has no acute SOB, speaking in full sentences, vital signs are stable, lungs are clear, distant. Pro BNP - 56764 (2) Hypokalemia: Status: Chronic Assessment and plan: Potassium is 3.5 - he refuses any IV potassium - will continue PO (3) Diabetes mellitus: Status: Chronic Assessment and plan: Finger sticks AC HS - sliding scale, PM Lantus Glucose 136 (4) CAD (coronary artery disease): Status: Chronic Assessment and plan: Troponin 115, second unchanged., also 115. He has no CP, no SOB, no diaphoresis Continue Plavix (he did not have any - he was given one in the ED) continue other home meds (5) Exertional dyspnea: Status: Chronic Assessment and plan: He becomes SOB with ambulation - he does have oxygen on at 2 LPM and has satisfactory SPO2 - CO2 40 VBG sat 88% (6) DVT prophylaxis: Status: Acute Assessment and plan: Heparin DDimer 1239 (7) Discharge planning issues: Status: Acute Assessment and plan: Back to [facility] with continued Home Health Services - they will pour meds (I have called home health regarding this). Reinforce daily weights with parameters to notify PCP. History of Present Illness History of Present Illness Chief Complaint: Shortness of breath. Narrative: 76-year-old male padilla presents to the [facility] emergency room from [facility] with a chief complaint of transient shortness of breath.? He had noted weight gain over known dry weight.? Patient prescriptions include Imdur 120 mg daily, Cymbalta 60 mg daily, spironolactone 25 mg daily, Plavix once daily, terazosin.? The patient is in a fci and they report that he has not had these medications available for approximately 1 week. He has a recent hospitalization, 05/26/2022 for the same, but no one picked up his discharge medications from the pharmacy. On arrival the patient demonstrated normal mental status and conversation.? He was normotensive and oxygenating normally in the emergency room.? His exam did reveal lower extremity edema and his weight is increased approximately 8 to 9 pounds over previous dry weight. Chest x-ray revealed no significant interval change.? Right greater than left pleural effusion with mild vascular congestion. Laboratories: White count of 8, hematocrit 37, platelets 164.? Chemistry reveals improved renal function with a creatinine of 1.1, and elevated troponin of 115, and elevated BNP at 21,510. Repeated troponin is the same, 115. Given the patient did not take his medications at home for approximately 1 week, his presentation and diagnostic findings, this is most consistent with acute on chronic congestive heart failure with a component of demand ischemia.? He is stable, diuresing, and is appropriate for admission. he is admitted to the medical surgical floor for observation to continue diuresis. I spoke with [facility] and [facility] regarding his medications. [facility] personnel state they are not a medical facility and do not administer medications. I asked [facility] to add an order for medication pouring for him. I called Lucy and was advised that no one picked up his prescriptions until this afternoon (06/08/2022). Napoleon would like to have everything done - to include intubation, defibrillation and CPR. I changed his code status. His IV came out and he refused another one be put in - discussed that if there is a problem we won't be able to give him IV medications such as epi for example. He said he understood and does not want an IV. He refused IV potassium Review of Systems All systems reviewed & are unremarkable except as noted in HPI and below PFSH All Active Problems (Updated 06/08/22 @ 18:51 by Ambreen Mccullough NP) Hypokalemia (Chronic) Discharge planning issues (Acute) DVT prophylaxis (Acute) Thyroid mass of unclear etiology (Acute) Wound dehiscence, surgical (Acute) Pulmonary hypertension (Acute) Acute on chronic systolic CHF (congestive heart failure) (Acute) Diabetes mellitus (Chronic) History of pericarditis (Chronic) CHAPARRO (obstructive sleep apnea) (Chronic) CAD (coronary artery disease) (Chronic) Colitis (Acute) Diabetic peripheral neuropathy associated with type 2 diabetes mellitus (Chronic) Acute kidney injury (nontraumatic) (Acute) Abnormal EKG (Acute) Constipation due to pain medication (Chronic) Chronic, continuous use of opioids (Chronic) Diastolic dysfunction (Chronic) Exertional dyspnea (Chronic) Ischemic cardiomyopathy (Chronic) Myocardial infarction of inferior wall (Chronic) Medical History (Updated 06/08/22 @ 18:51 by Ambreen Mccullough NP) Chronic respiratory failure with hypoxia Social History Smoking/Tobacco Use Status: Former Tobacco Use Tobacco: How many years used: 24 Smoking risk assessment performed?: Yes Alcohol Intake: former Drug use: Never Details: Pt quit alcohol and tobacoo 24 years ago. Do you feel safe at home: Yes Do you feel safe in your relationship?: Yes Meds Allergies and Home Medications Allergies Allergy/AdvReac Type Severity Reaction Status Date / Time Penicillins Allergy Anaphylaxsi Unverified 06/08/22 11:47 s metoprolol AdvReac Very low Unverified 06/08/22 11:47 pulse Home Medications Medication Instructions Recorded Confirmed Type aspirin 81 mg tablet,delayed 81 mg PO DAILY 01/08/14 06/08/22 History release (Aspir-) budesonide-formoterol HFA 160 2 inh inhalation BID 01/08/14 06/08/22 History mcg-4.5 mcg/actuation aerosol inhaler (Symbicort) insulin glargine 100 unit/mL 45 units HS 01/08/14 06/08/22 History subcutaneous solution (Lantus U-100 Insulin) isosorbide mononitrate 60 mg 120 mg PO DAILY 01/08/14 06/08/22 History tablet,extended release 24 hr (Imdur) potassium chloride 10 mEq 60 meq PO BID 01/08/14 06/08/22 History capsule,extended release tiotropium bromide 18 mcg capsule 18 mcg inhalation DAILY 01/08/14 06/08/22 History with inhalation device (Spiriva with HandiHaler) trazodone 50 mg tablet 150 mg PO HS 01/08/14 06/08/22 History allopurinol 100 mg tablet 200 mg PO DAILY 10/16/16 06/08/22 History insulin glargine 100 unit/mL 45 unit SQ .QAM 10/16/16 06/08/22 History subcutaneous solution (Lantus U-100 Insulin) nitroglycerin 400 mcg/spray 4.9 g translingual PRN PRN 10/16/16 06/08/22 History translingual atorvastatin 80 mg tablet (Lipitor) 80 mg PO QAM 09/07/17 06/08/22 History sennosides 8.6 mg tablet 8.6 mg PO BID PRN PRN 09/07/17 06/08/22 History clopidogrel 75 mg tablet (Plavix) 75 mg PO DAILY 10/07/17 06/08/22 History torsemide 20 mg tablet 80 mg PO BID 10/07/17 06/08/22 History carvedilol 3.125 mg tablet 3.125 mg PO BID #60 tabs 10/12/17 06/08/22 Rx oxycodone-acetaminophen 10 mg-325 10 mg PO QID PRN 09/21/18 06/08/22 History mg tablet (Percocet) bupropion HCl 150 mg 24 hr tablet, 150 tab PO DAILY 05/26/22 06/08/22 History extended release carboxymethylcellulose sodium 0.5 2 drp QID 05/26/22 06/08/22 History % eye drops fluticasone 500 mcg-salmeterol 50 1 inh inhalation BID 05/26/22 06/08/22 History mcg/dose blistr powdr for inhalation (Advair Diskus) ipratropium 0.5 mg-albuterol 3 mg 3 ml inhalation Q6H PRN 05/26/22 06/08/22 History (2.5 mg base)/3 mL nebulization soln omeprazole 20 mg capsule,delayed 20 mg HS 05/26/22 06/08/22 History release sertraline 100 mg tablet 100 mg PO DAILY 05/26/22 06/08/22 History tamsulosin 0.4 mg capsule 0.4 mg PO HS 05/26/22 06/08/22 History doxycycline monohydrate 100 mg 100 mg PO BID #20 caps 05/31/22 06/08/22 Rx capsule empagliflozin 10 mg tablet 10 mg PO QAM #14 tabs 05/31/22 06/08/22 Rx (Jardiance) duloxetine 60 mg capsule,delayed 60 mg PO BID #60 caps 06/05/22 06/08/22 Rx release (Cymbalta) gabapentin 300 mg capsule 600 mg PO TID 06/05/22 06/08/22 History spironolactone 25 mg tablet 25 mg PO DAILY #30 tabs 06/05/22 06/08/22 Rx terazosin 2 mg capsule 4 mg PO HS #30 caps 06/05/22 06/08/22 Rx Exam Narrative Exam Narrative: GEN: awake, alert, oriented 3. Pleasant, well groomed, interactive. HEAD: Normocephalic, atraumatic ENT: Mucous membranes moist, oropharynx unremarkable, External ear exam unremarkable EYES: PERRL, EOMI NECK: Full ROM, no ELISE, no menigismus CHEST/RESP: Nontender, distant with distant clear breath sounds. CARDIOVASCULAR: Distant, RRR, no murmur, rub arcelia. 2+ Rad pulse bilateral ABDOMEN: Soft, nontender, no mass. +Bowel sounds. Patient has a second skin dressing on his coccyx. There is no erythema or tenderness to my exam. EXT: Full ROM, right great toe surgically absent. 2+ pitting edema bilateral Neuro: Grossly normal neurologic exam, conversant, interactive. Psych: Speech fluent, thoughts congruent, affect normal Results Labs Result diagrams: 06/08/22 13:11 06/08/22 13:11 Labs: Laboratory Results - last 24 hr 06/08/22 06/08/22 06/08/22 12:45 12:45 12:45 WBC Cancelled RBC Cancelled Hgb Cancelled Hct Cancelled MCV Cancelled MCH Cancelled MCHC Cancelled RDW Cancelled Plt Count Cancelled MPV Cancelled Immature Gran % Cancelled Neutrophils % Cancelled Band Neutrophils % Cancelled Lymphocytes % Cancelled Atypical Lymphs % Cancelled Monocytes % Cancelled Eosinophils % Cancelled Basophils % Cancelled Metamyelocytes % Cancelled Myelocytes % Cancelled Promyelocytes % Cancelled Other Cells % Cancelled Nucleated RBC % Cancelled Absolute Neutrophils Cancelled Absolute Lymphocytes Cancelled Absolute Monocytes Cancelled Absolute Eosinophils Cancelled Absolute Basophils Cancelled RBC Morphology Cancelled Polychromasia Cancelled Hypochromasia Cancelled Poikilocytosis Cancelled Basophilic Stippling Cancelled Anisocytosis Cancelled Microcytosis Cancelled Macrocytosis Cancelled Spherocytes Cancelled Tear Drop Cells Cancelled Ovalocytes Cancelled Stomatocytes Cancelled [place] Bodies Cancelled [place] Cells/Echinocytes Cancelled Acanthocytes (Spur) Cancelled Schistocytes Cancelled Sodium Cancelled Potassium Cancelled Chloride Cancelled Carbon Dioxide Cancelled Anion Gap Cancelled BUN Cancelled Creatinine Cancelled Estimated GFR/1.73 m2 Cancelled Glucose Cancelled Calcium Cancelled Magnesium Cancelled Cancelled Total Bilirubin Cancelled AST Cancelled ALT Cancelled Alkaline Phosphatase Cancelled Troponin I Cancelled Cancelled NT-Pro-B Natriuret Pep Cancelled Cancelled Total Protein Cancelled Albumin Cancelled COVID-19 Source SARS-CoV-2 (PCR) 06/08/22 06/08/22 06/08/22 13:11 13:11 14:14 WBC 8.90 RBC 4.38 Hgb 11.4 L Hct 37.3 L MCV 85 MCH 26.0 L MCHC 30.6 L RDW 18.1 H Plt Count 164 MPV 10.7 Immature Gran % 0.3 Neutrophils % 79.4 Band Neutrophils % Lymphocytes % 9.0 Atypical Lymphs % Monocytes % 7.5 Eosinophils % 3.1 Basophils % 0.7 Metamyelocytes % Myelocytes % Promyelocytes % Other Cells % Nucleated RBC % 0.0 Absolute Neutrophils 7.06 H Absolute Lymphocytes 0.80 L Absolute Monocytes 0.67 Absolute Eosinophils 0.28 Absolute Basophils 0.06 RBC Morphology Polychromasia Hypochromasia Poikilocytosis Basophilic Stippling Anisocytosis Microcytosis Macrocytosis Spherocytes Tear Drop Cells Ovalocytes Stomatocytes [place] Bodies [place] Cells/Echinocytes Acanthocytes (Spur) Schistocytes Sodium 145 Potassium 3.5 Chloride 102 Carbon Dioxide 40.4 H Anion Gap 2.6 L BUN 32 H Creatinine 1.1 Estimated GFR/1.73 m2 >= 60.00 Glucose 136 H Calcium 9.1 Magnesium 2.0 Total Bilirubin 0.8 AST 26 ALT 36 Alkaline Phosphatase 297 H Troponin I 115 H* NT-Pro-B Natriuret Pep 11842 H Total Protein 6.7 Albumin 2.3 L COVID-19 Source Nasal/Nares SARS-CoV-2 (PCR) Negative 06/08/22 15:00 WBC RBC Hgb Hct MCV MCH MCHC RDW Plt Count MPV Immature Gran % Neutrophils % Band Neutrophils % Lymphocytes % Atypical Lymphs % Monocytes % Eosinophils % Basophils % Metamyelocytes % Myelocytes % Promyelocytes % Other Cells % Nucleated RBC % Absolute Neutrophils Absolute Lymphocytes Absolute Monocytes Absolute Eosinophils Absolute Basophils RBC Morphology Polychromasia Hypochromasia Poikilocytosis Basophilic Stippling Anisocytosis Microcytosis Macrocytosis Spherocytes Tear Drop Cells Ovalocytes Stomatocytes [place] Bodies [place] Cells/Echinocytes Acanthocytes (Spur) Schistocytes Sodium Potassium Chloride Carbon Dioxide Anion Gap BUN Creatinine Estimated GFR/1.73 m2 Glucose Calcium Magnesium Total Bilirubin AST ALT Alkaline Phosphatase Troponin I 115 H* NT-Pro-B Natriuret Pep Total Protein Albumin COVID-19 Source SARS-CoV-2 (PCR) Last Vital Signs Temp 36.7 C 06/08/22 11:36 Pulse 66 06/08/22 15:54 Resp 17 06/08/22 15:54 BP 116/42 L 06/08/22 15:54 Pulse Ox 95 06/08/22 15:54
[2022-06-08] MEDS: POTASSIUM CHLORIDE 10 MEQ/100 ML BAG 100 MEQ IVPB (17:41)
[2022-06-08] MEDS: Normal Saline Flush 10 ML SYR IVP (17:42)
--- NOTE | 2022-06-08 18:14 | NUR.NOTE ---
Nursing Note: Pt voicing complaints about IV KCL requesting PO instead. This policy writer explained purpose and infusing with dilution. pt will try for now. Ten minutes later pt rang. IV out of hand. Explained to pt need another IV for KCL. pt states,I don't want another IV I want to see the doctor and tell her I can take it PO instead. This policy writer uipdated provider of request and refusal of IV.
[2022-06-08] MEDS: Gabapentin 300 MG CAP 600 MG PO (20:21)
[2022-06-08] MEDS: oxyCODONE 5 mg/Acetaminophen 325 mg TAB 2 TAB PO (20:21)
[2022-06-08] MEDS: Doxycycline Hyclate 100 MG CAP PO (20:22)
[2022-06-08] MEDS: Potassium Chloride 10 MEQ CAPCR 60 MEQ PO (20:22)
[2022-06-08] MEDS: Carvedilol 3.125 MG TAB PO (20:22)
[2022-06-08] MEDS: Torsemide 20 MG TAB 80 MG PO (20:22)
[2022-06-08] MEDS: DULoxetine 30 MG CAP 60 MG PO (20:22)
[2022-06-08] MEDS: Heparin 5,000 UNITS/ML VIAL 5000 UNITS SC (20:23)
[2022-06-08] MEDS: Budesonide/Formoterol 160/4.5 6 GM 60 PUFF INH IH (21:26)
[2022-06-08] MEDS: Omeprazole 20 MG CAPCR PO (21:28)
[2022-06-08] MEDS: Tamsulosin 0.4 MG CAPCR PO (21:28)
[2022-06-08] MEDS: traZODone 50 MG TAB 150 MG PO (21:28)
[2022-06-08] MEDS: Terazosin 2 MG CAP 4 MG PO (21:42)
[2022-06-08] MEDS: Insulin Glargine 300 UNITS/3 ML PEN 30 UNITS SC (21:43)
[2022-06-09] VITALS (11 sets, daily range): BP systolic 104–131; BP diastolic 48–63; PULSE 50–64; RESP 12–18; TEMP 36.1–36.8; O2SAT 86–97
[2022-06-09] MEDS: Heparin 5,000 UNITS/ML VIAL 5000 UNITS SC ×2 (03:58→12:13)
[2022-06-09 05:57] LABS: Abs Immature Grans 0.03 10^3/uL (0.0-0.06); Absolute Basophil Count 0.05 10^3/uL (0.0-0.2); Absolute Eosinophil Count 0.25 10^3/uL (0.0-0.7); Absolute Lymphocyte Count 0.82 10^3/uL (1.2-3.4); Absolute Monocyte Count 0.61 10^3/uL (0.1-0.8); Absolute Neutrophil Count 4.98 10^3/uL (1.2-6.7); Basophils % 0.7; Eosinophils % 3.7; HCT 35.4 % (40.0-50.0); HGB 10.8 g/dL (13.5-17.5); Immature Grans % 0.4; Lymphocytes % 12.2; MCH 25.8 pg (27.0-33.0); MCHC 30.5 % (32.0-36.0); MCV 85 fL (80-95); MPV 11.2 fL (8.0-11.0); Monocytes % 9.1; Neutrophils % 73.9; Platelet Count 159 10^3/uL (130-400); RBC 4.18 10^6/uL (4.36-5.78); RDW 18.4 % (11.8-14.1); RDW-SD 57.1 fL; WBC 6.74 10^3/uL (4.4-10.8)
[2022-06-09 06:08] LABS: Anion Gap 2.8 mmol/L (3-11); BUN 27 mg/dL (7-18); CO2 40.2 mmol/L (21.0-32.0); CREATININE 1.1 mg/dL (0.70-1.30); Chloride 104 mmol/L (98-107); Glucose 119 mg/dL (74-106); Potassium 3.4 mmol/L (3.5-5.1); Sodium 147 mmol/L (136-145)
[2022-06-09] MEDS: Budesonide/Formoterol 160/4.5 6 GM 60 PUFF INH IH (07:43)
[2022-06-09] MEDS: Torsemide 20 MG TAB 80 MG PO (07:59)
[2022-06-09] MEDS: Potassium Chloride 10 MEQ CAPCR 60 MEQ PO (07:59)
[2022-06-09] MEDS: Atorvastatin 40 MG TAB 80 MG PO (08:00)
[2022-06-09] MEDS: Isosorbide Mononitrate 60 MG TABCR 120 MG PO (08:01)
[2022-06-09] MEDS: Gabapentin 300 MG CAP 600 MG PO (08:02)
[2022-06-09] MEDS: Allopurinol 100 MG TAB 200 MG PO (08:02)
[2022-06-09] MEDS: Spironolactone 25 MG TAB PO (08:02)
[2022-06-09] MEDS: buPROPion-XL 150 MG TABCR PO (08:02)
[2022-06-09] MEDS: Doxycycline Hyclate 100 MG CAP PO (08:02)
[2022-06-09] MEDS: Carvedilol 3.125 MG TAB PO (08:02)
[2022-06-09] MEDS: Empaglifozin 10 MG TAB PO (08:03)
[2022-06-09] MEDS: Clopidogrel 75 MG TAB PO (08:03)
[2022-06-09] MEDS: DULoxetine 30 MG CAP 60 MG PO (08:03)
[2022-06-09] MEDS: Sertraline 100 MG TAB PO (08:03)
[2022-06-09] MEDS: Tiotropium Bromide-Respimat 10 PUFF INH IH (09:18)
--- NOTE | 2022-06-09 09:41 | WOUNDCONS_ITS ---
- If Service Date Differs Date of service: 06/09/22 Time of Service: 09:41 Wound Initial Evaluation Narrative: Patient is a 76yom. He is seen here for Acute on chronic CHF, and Hypokalemia. Patient has a History significant for, DM, Chronic resp. failure with hypoxia, CHAPARRO, and CAD. Patient was recently discharged from here to [facility] , which is an assisted living home. Patient was discharged here with several scripts, which were not picked up by the patient or his family, therefore, he went several days without his medications. During that time he gained approximately 8-9 lbs. and was having episodes of sob. [facility], does not administer meds, and d/t concern urged him to come here. Home health has been asked to assist the patient with his medications going forward. Due to the nature of patient having several chronic and acute wounds, a Wound Consult has been requested. Patient was approached and goal of treatment was discussed with him. He consents to the wound consult. Labs were reviewed, noted were the following. NA 147. KCL 3.4, down from 3.5, patient has refused IV KCL and is getting 60 meq PO this morning. BNP 98239, Trop 115, (demand ischemia???) BUN27, down from 32. Heparin and Plavix for VTE. Discussing etiology of wounds with the patient . He had a toe amputation , and the DFU evolved from this. He feels his sacral wounds is from spending more time in bed than he is accustomed to. Reviewed his ambulation status. He can ambulate 1 assist with walker. H&P, labs, allergies, radiology, and allergies were reviewed prior to the consult. - Wound Lumbar/Sacral Wound Type: Pressure Ulcer Pressure Ulcer Stage: II Wound General Appearance: Clean/Dry, Unapproximated Wound Bed Greatest Portion: Shiny Wound Bed Lesser Portion: Red (Granulation) Wound Surrounding Tissue Appearance: [place] Percent of Wound Bed Granulated/Red: 10 Wound Length: 0.9 cm Wound Width: 0.6 cm Wound Depth: 0.2 cm Wound Drainage Amount: None Wound Drainage Odor: None/Absent Wound Drainage Description: No drainage Wound Topical Solution/Irrigant: Saline Irrigant Wound Debridement Method: Gauze Wound Debridement Result: Other (no material debrided) Wound Debridement Amount of Tissue Removed: None Right Posterior Thigh Wound Type: Maceration (Ishium) Wound General Appearance: Draining, Unapproximated, Denuded Wound Bed Greatest Portion: Red (Granulation) Wound Bed Lesser Portion: Shiny Wound Surrounding Tissue Appearance: Dark Red Percent of Wound Bed Granulated/Red: 100 Wound Length: 1.3 cm Wound Width: 1 cm Wound Depth: 0.1 cm Wound Drainage Amount: Minimal Wound Drainage Odor: None/Absent Wound Drainage Description: Serous Wound Topical Solution/Irrigant: Saline Irrigant Wound Debridement Method: Gauze Wound Debridement Result: Healthy Tissue Revealed Wound Debridement Amount of Tissue Removed: Minimal Left Forearm Wound Type: Skin Tear, Partial Thickness Wound General Appearance: Reddened, Unapproximated Wound Bed Greatest Portion: Red (Granulation) Wound Surrounding Tissue Appearance: [place] Percent of Wound Bed Granulated/Red: 100 Wound Length: 2.5 cm Wound Width: 1.5 cm Wound Depth: 0.1 cm (greater than) Wound Drainage Amount: Minimal Wound Drainage Odor: None/Absent Wound Drainage Description: Bloody Wound Topical Solution/Irrigant: Saline Irrigant Wound Debridement Method: Gauze Wound Debridement Result: Healthy Tissue Revealed Wound Debridement Amount of Tissue Removed: Minimal Right Great toe Wound Type: Diabetic Ulcer (previously amputated) Wound General Appearance: Reddened, Necrotic, Unapproximated Wound Bed Greatest Portion: Red (Granulation) Wound Bed Lesser Portion: Yellow (Slough) Wound Surrounding Tissue Appearance: [place] Percent of Wound Bed Granulated/Red: 75 Percent of Wound Bed Slough/Yellow: 25 Wound Length: 2.3 cm Wound Width: 1.3 cm Wound Depth: 0.2 cm Wound Drainage Amount: Minimal Wound Drainage Odor: None/Absent Wound Drainage Description: Bloody, Other (yellow) Wound Topical Solution/Irrigant: Saline Irrigant Wound Debridement Method: Gauze Wound Debridement Result: Healthy Tissue Revealed, Yellow Sloughing Remains (slough is loosely adhered) Wound Debridement Amount of Tissue Removed: Minimal Right Lateral Ankle Wound Type: Diabetic Ulcer Wound General Appearance: Reddened, Necrotic, Unapproximated Wound Bed Greatest Portion: Yellow (Slough) Wound Bed Lesser Portion: Red (Granulation) Wound Surrounding Tissue Appearance: [place] Percent of Wound Bed Granulated/Red: 20 Percent of Wound Bed Slough/Yellow: 80 Wound Length: 1.3 cm Wound Width: 0.7 cm Wound Depth: 0.3 cm Wound Drainage Odor: None/Absent Wound Drainage Description: Bloody, Other (yellow) Wound Topical Solution/Irrigant: Saline Irrigant Wound Debridement Method: Gauze Wound Debridement Result: Yellow Sloughing Remains - Circulation, Sensation, Motion Edema Degree: 2+ Peripheral Pulse Strength: Weak Capillary Refill: Greater than 3 seconds Sensation Description: Numbness, Tingling (Patient has no feeling in his feet.) Skin Temperature: Warm Skin Color: Pale - Pain Pain Level: 9 (foot opposite of the wounded foot ) Pain Scale Used: Visual Analog Scale 0-10 Pain Description: Sharp This a diabetic patient who has areas of multiple chronic and acute wounds. Some of the wounds are nearly healed. The others will need help in healing. The DFU's, after discussing with patient, the goal is to eliminate the slough, so as to be able to add collagen to create a healthier wound bed to assist in closing and healing the wounds. the remaining wounds, keep covered to keep clean and protect them. Offload pressure to assist in healing and prevent further complications. - Photo Photo: - Treatment/Dressing Change Topicals/Ointments: Santyl Cleanse With: Saline Dressing Types: Hydrocollid (Duoderm), Kerlix (Gauze Roll), Mepilex w/Border Additional Other Comments: Nutrition was discussed with the patient for optimum wound healing. I will ask Dietary to weigh in. - Recomendation Recomendation:: Right Foot and lateral malleolus. Clean with normal Saline then pat dry. Apply nickel thickness of Santyl to the wound bed. Cover with half of a Duoderm thin. Secure with Kerlix. Change daily or PRN. Left Forearm Skin Tear. Clean with Normal Saline, then pat dry. Protect with a Mepilex border 4X 4. Change every 3 days or PRN. Check placement daily. Sacrum. Cleanse with Normal Saline, then pat dry. Cover with a Mepilex Sacral. Change every 3 days or PRN. Check placement daily. Offload pressure as patient will tolerate. Right [place]. Cleanse with Normal Saline, then pat dry. Cover with a Mepilex border 4X4. Change every 3 days or PRN. Check placement daily. Offload pressure as patient will tolerate. Physcian/Nurse Practioner Notified: Yes (Shirin Carrizales NP) Referrals: Dietary Treatment Time - Time Total Time Spent with Patient: 1 hour 30 minutes - Patient Will be Seen Weekly Treatment: daily - For: For:: 1 week
[2022-06-09] MEDS: Collagenase 30 GM TUBE TP (10:13)
[2022-06-09] MEDS: oxyCODONE 5 mg/Acetaminophen 325 mg TAB 2 TAB PO (10:26)
--- NOTE | 2022-06-09 11:24 | DSE_ITS ---
Date of service: 06/09/22 Time of Service: 11:24 DS: Diagnosis Discharge Diagnosis (1) Acute on chronic systolic CHF (congestive heart failure): Status: Acute (2) Hypokalemia: Status: Chronic (3) Diabetes mellitus: Status: Chronic (4) CAD (coronary artery disease): Status: Chronic (5) Exertional dyspnea: Status: Chronic Discharge Plan Disposition Patient Disposition: HOME W/HOME HEALTH SERVICE Condition: Improving Discharge Details Reason For Visit: Acute on Chronic CHF Admit Date/Time: 06/08/22 15:32 Admit Provider: Miller Kaur Attending Provider: Miller Kaur Primary Care Provider: Nasreen Thapa [facility] Course Hospital Course: Pascale is a 76-year-old male patient who presented to the [facility] emergency room from [facility] with a chief complaint of transient shortness of breath.? He had noted weight gain over known dry weight.? Patient prescriptions include Imdur 120 mg daily, Cymbalta 60 mg daily, spironolactone 25 mg daily, Plavix on ce daily, terazosin.? The patient is in a detention and they report that he has not had these medications available for approximately 1 week.? He has a recent hospitalization, 05/26/2022 for the same, but no one picked up his discharge medications from the pharmacy. He was started on his home medication and referred to observation overnight. He remained medically stable. wound care consult placed with dressing change recommendations. Patient is stable and ready for discharge back to [facility], will be transported by family. discharge discussed with DR Wiley. Home Meds and New Rx's Prescriptions: Continued duloxetine [Cymbalta] 60 mg capsule,delayed release(DR/EC) 60 mg PO BID Qty: 60 0RF Rx Instructions: 06/08/22 none in home spironolactone 25 mg tablet 25 mg PO DAILY Qty: 30 0RF terazosin 2 mg capsule 4 mg PO HS Qty: 30 0RF potassium chloride 10 MEQ capsule, extended release 60 meq PO BID aspirin [Aspir-81] 81 MG tablet,delayed release (DR/EC) 81 mg PO DAILY isosorbide mononitrate [Imdur] 60 MG tablet extended release 24 hr 120 mg PO DAILY budesonide-formoterol [Symbicort] 10.2 GM HFA aerosol inhaler 2 inh Inhalation BID Label Comments: not taking insulin glargine [Lantus U-100 Insulin] 100 UNITS/ML solution 45 units HS trazodone 50 MG tablet 150 mg PO HS Spiriva with HandiHaler 18 MCG capsule, w/inhalation device 18 mcg Inhalation DAILY Label Comments: not taking atorvastatin [Lipitor] 80 MG tablet 80 mg PO QAM sennosides 8.6 MG tablet 8.6 mg PO BID PRN PRN torsemide 20 MG tablet 80 mg PO BID clopidogrel [Plavix] 75 MG tablet 75 mg PO DAILY carvedilol 3.125 MG tablet 3.125 mg PO BID Qty: 60 3RF oxycodone-acetaminophen [Percocet] 10-325 mg Tablet 10 mg PO QID PRN ipratropium-albuterol 0.5 mg-3 mg(2.5 mg base)/3 mL Solution For Nebulization 3 ml INHALATION Q6H PRN carboxymethylcellulose sodium 0.5 % drops 2 drp QID fluticasone propion-salmeterol [Advair Diskus] 500-50 mcg/dose Blister With Device 1 inh INHALATION BID bupropion HCl 150 mg tablet extended release 24 hr 150 tab PO DAILY sertraline 100 mg tablet 100 mg PO DAILY tamsulosin 0.4 mg capsule 0.4 mg PO HS omeprazole 20 mg capsule,delayed release(DR/EC) 20 mg HS Jardiance 10 mg Tablet 10 mg PO QAM Qty: 14 0RF doxycycline monohydrate 100 mg capsule 100 mg PO BID Qty: 20 0RF gabapentin 300 mg capsule 600 mg PO TID insulin glargine [Lantus U-100 Insulin] 100 UNITS/ML solution 45 unit SQ .QAM allopurinol 100 MG tablet 200 mg PO DAILY nitroglycerin 4.9 GM spray,non-aerosol 4.9 g Translingual PRN PRN Discharge Instructions Instructions: Heart Failure (DC), Low-Sodium Diet (DC) Additional Instructions: Wound care instructions Right Foot and lateral malleolus. Clean with normal Saline then pat dry. Apply nickel thickness of Santyl to the wound bed. Cover with half of a Duoderm thin. Secure with Kerlix. Change daily or PRN. Left Forearm Skin Tear. Clean with Normal Saline, then pat dry. Protect with a Mepilex border 4X 4. Change every 3 days or PRN. Check placement daily. Sacrum. Cleanse with Normal Saline, then pat dry. Cover with a Mepilex Sacral. Change every 3 days or PRN. Check placement daily. Offload pressure as patient will tolerate. Right Ischium. Cleanse with Normal Saline, then pat dry. Cover with a Mepilex border 4X4. Change every 3 days or PRN. Check placement daily. Offload pressure as patient will tolerate. Stand Alone Forms: Nursing Discharge Form Referrals: Nasreen Thapa [Primary Care Provider] - (Please call to make a follow up appointment. ) Activity:: Activity as Tolerated Equipment/Supplies:: No Equipment Needed Diet:: As Tolerated Discharge Orders Discharge Orders: Discharge Order (Routine); Ordered 06/09/22 Ordered By: Shirin Carrizales Discharge Data Discharge Date/Time-TO BE ENTERED AT DEPARTURE: 06/09/22 13:50 DS: Summary Time Spent with Patient providing and/or coordinating discharge services: Greater than 30 minutes Status at Discharge Functional status at discharge: uses cane/walker Overall status at discharge: patient is progressing back to baseline Mental Status: mental status grossly normal Speech and Movement: speech and movement normal Mood: congruent mood Affect: normal affect Exam Const General: cooperative, no acute distress, frail appearing and ill appearing (elderly gentlemen of stated age) Nutritional Appearance: obese Orientation: alert, awake and oriented x3 HENMT Head: normal to inspection, normocephalic and atraumatic Mouth: oral mucosae normal Resp Effort & Inspection: normal respiratory effort Auscultation: clear to auscultation bilaterally and diminished lung sounds (bases) bilaterally Cardio Rate: regular rate Rhythm: regular rhythm GI Inspection: normal to inspection Palpation: soft Auscultation: normal bowel sounds Skin Lesions: lesion noted (right foot/lateral malleolus, left FA, sacrum, right ischium) and other (see wound care notes for pictures and measurements. ) Neuro General: patient alert, patient awake and patient oriented x3 Cognition: normal cognition Extrem General: full ROM and no pedal edema Psych Mental Status: mental status grossly normal Speech and Movement: speech and movement normal Mood: congruent mood Affect: normal affect DS: Data Vitals/I&O Vitals and I&O: Vital Signs Temperature 36.5 C 06/09/22 07:45 Temperature Source Tympanic 06/09/22 07:45 Pulse 64 06/09/22 07:45 Pulse Rhythm Regular 06/09/22 07:30 Respiratory Rate 12 06/09/22 07:45 Respiratory Effort 06/09/22 07:30 Respiratory Depth Normal 06/09/22 07:30 Respiratory Pattern Normal 06/09/22 07:30 Blood Pressure 131/63 06/09/22 07:45 Blood Pressure Position Sitting 06/08/22 11:36 Pulse Oximetry 95 06/09/22 07:46 Oxygen Delivery Method Nasal Cannula 06/09/22 07:46 Oxygen Flow Rate 2 06/09/22 07:46 End Tidal Co2 2 06/08/22 11:36 Pain Level 9 06/09/22 11:14 Comment 06/08/22 23:34 Intake & Output 06/08/22 06/08/22 06/09/22 11:59 23:59 11:59 Intake Total 331.667 / 331.667 880 / 880 Output Total 1500 / 3650 2150 / 3650 1000 / 1000 Balance -1500 / -3318.333 -1818.333 / -3318.333 -120 / -120 Weight 121.5 kg 121.5 kg Intake: IV 31.667 / 31.667 Oral 300 / 300 880 / 880 Output: Urine 1500 / 3650 2150 / 3650 1000 / 1000 Other: Urine Color Yellow Pale Yellow Urine Appearance Clear Clear Comment pt on chronic felton, has felton catheter when received at 1900 Stool Size Large Stool Characteristics Hard Brown Voiding Methods Indwelling Catheter Urinal Data Completed and Pending Labs on day of discharge: Labs from last 24 hours 06/09/22 06/09/22 06/09/22 07:23 05:30 05:30 WBC 6.74 RBC 4.18 L Hgb 10.8 L Hct 35.4 L MCV 85 MCH 25.8 L MCHC 30.5 L RDW 18.4 H Plt Count 159 MPV 11.2 H Immature Gran % 0.4 Neutrophils % 73.9 Band Neutrophils % Lymphocytes % 12.2 Atypical Lymphs % Monocytes % 9.1 Eosinophils % 3.7 Basophils % 0.7 Metamyelocytes % Myelocytes % Promyelocytes % Other Cells % Nucleated RBC % 0.0 Absolute Neutrophils 4.98 Absolute Lymphocytes 0.82 L Absolute Monocytes 0.61 Absolute Eosinophils 0.25 Absolute Basophils 0.05 RBC Morphology Polychromasia Hypochromasia Poikilocytosis Basophilic Stippling Anisocytosis Microcytosis Macrocytosis Spherocytes Tear Drop Cells Ovalocytes Stomatocytes [place] Bodies [place] Cells/Echinocytes Acanthocytes (Spur) Schistocytes VBG Lactate Sodium 147 H Potassium 3.4 L Chloride 104 Carbon Dioxide 40.2 H Anion Gap 2.8 L BUN 27 H Creatinine 1.1 Estimated GFR/1.73 m2 >= 60.00 Glucose 119 H Calcium 9.0 Magnesium 2.0 Total Bilirubin AST ALT Alkaline Phosphatase Troponin I Cancelled NT-Pro-B Natriuret Pep Total Protein Albumin COVID-19 Source SARS-CoV-2 (PCR) 06/08/22 06/08/22 06/08/22 Unknown 15:00 14:14 WBC RBC Hgb Hct MCV MCH MCHC RDW Plt Count MPV Immature Gran % Neutrophils % Band Neutrophils % Lymphocytes % Atypical Lymphs % Monocytes % Eosinophils % Basophils % Metamyelocytes % Myelocytes % Promyelocytes % Other Cells % Nucleated RBC % Absolute Neutrophils Absolute Lymphocytes Absolute Monocytes Absolute Eosinophils Absolute Basophils RBC Morphology Polychromasia Hypochromasia Poikilocytosis Basophilic Stippling Anisocytosis Microcytosis Macrocytosis Spherocytes Tear Drop Cells Ovalocytes Stomatocytes [place]he-[place] Bodies [place]riele Cells/Echinocytes Acanthocytes (Spur) Schistocytes VBG Lactate Cancelled Sodium Potassium Chloride Carbon Dioxide Anion Gap BUN Creatinine Estimated GFR/1.73 m2 Glucose Calcium Magnesium Total Bilirubin AST ALT Alkaline Phosphatase Troponin I 115 H* NT-Pro-B Natriuret Pep Total Protein Albumin COVID-19 Source Nasal/Nares SARS-CoV-2 (PCR) Negative 06/08/22 06/08/22 06/08/22 13:11 13:11 12:45 WBC 8.90 Cancelled RBC 4.38 Cancelled Hgb 11.4 L Cancelled Hct 37.3 L Cancelled MCV 85 Cancelled MCH 26.0 L Cancelled MCHC 30.6 L Cancelled RDW 18.1 H Cancelled Plt Count 164 Cancelled MPV 10.7 Cancelled Immature Gran % 0.3 Cancelled Neutrophils % 79.4 Cancelled Band Neutrophils % Cancelled Lymphocytes % 9.0 Cancelled Atypical Lymphs % Cancelled Monocytes % 7.5 Cancelled Eosinophils % 3.1 Cancelled Basophils % 0.7 Cancelled Metamyelocytes % Cancelled Myelocytes % Cancelled Promyelocytes % Cancelled Other Cells % Cancelled Nucleated RBC % 0.0 Cancelled Absolute Neutrophils 7.06 H Cancelled Absolute Lymphocytes 0.80 L Cancelled Absolute Monocytes 0.67 Cancelled Absolute Eosinophils 0.28 Cancelled Absolute Basophils 0.06 Cancelled RBC Morphology Cancelled Polychromasia Cancelled Hypochromasia Cancelled Poikilocytosis Cancelled Basophilic Stippling Cancelled Anisocytosis Cancelled Microcytosis Cancelled Macrocytosis Cancelled Spherocytes Cancelled Tear Drop Cells Cancelled Ovalocytes Cancelled Stomatocytes Cancelled [place] Bodies Cancelled [place] Cells/Echinocytes Cancelled Acanthocytes (Spur) Cancelled Schistocytes Cancelled VBG Lactate Sodium 145 Potassium 3.5 Chloride 102 Carbon Dioxide 40.4 H Anion Gap 2.6 L BUN 32 H Creatinine 1.1 Estimated GFR/1.73 m2 >= 60.00 Glucose 136 H Calcium 9.1 Magnesium 2.0 Total Bilirubin 0.8 AST 26 ALT 36 Alkaline Phosphatase 297 H Troponin I 115 H* NT-Pro-B Natriuret Pep 61274 H Total Protein 6.7 Albumin 2.3 L COVID-19 Source SARS-CoV-2 (PCR) 06/08/22 06/08/22 12:45 12:45 WBC RBC Hgb Hct MCV MCH MCHC RDW Plt Count MPV Immature Gran % Neutrophils % Band Neutrophils % Lymphocytes % Atypical Lymphs % Monocytes % Eosinophils % Basophils % Metamyelocytes % Myelocytes % Promyelocytes % Other Cells % Nucleated RBC % Absolute Neutrophils Absolute Lymphocytes Absolute Monocytes Absolute Eosinophils Absolute Basophils RBC Morphology Polychromasia Hypochromasia Poikilocytosis Basophilic Stippling Anisocytosis Microcytosis Macrocytosis Spherocytes Tear Drop Cells Ovalocytes Stomatocytes [place]he-[place] Bodies [place]rie[place] Cells/Echinocytes Acanthocytes (Spur) Schistocytes VBG Lactate Sodium Cancelled Potassium Cancelled Chloride Cancelled Carbon Dioxide Cancelled Anion Gap Cancelled BUN Cancelled Creatinine Cancelled Estimated GFR/1.73 m2 Cancelled Glucose Cancelled Calcium Cancelled Magnesium Cancelled Cancelled Total Bilirubin Cancelled AST Cancelled ALT Cancelled Alkaline Phosphatase Cancelled Troponin I Cancelled Cancelled NT-Pro-B Natriuret Pep Cancelled Cancelled Total Protein Cancelled Albumin Cancelled COVID-19 Source SARS-CoV-2 (PCR) [facility]LY [facility], [facility] All Active Problems (Updated 06/08/22 @ 18:51 by Ambreen Mccullough NP) Hypokalemia (Chronic) Discharge planning issues (Acute) DVT prophylaxis (Acute) Thyroid mass of unclear etiology (Acute) Wound dehiscence, surgical (Acute) Pulmonary hypertension (Acute) Acute on chronic systolic CHF (congestive heart failure) (Acute) Diabetes mellitus (Chronic) History of pericarditis (Chronic) CHAP[place]O (obstructive sleep apnea) (Chronic) CAD (coronary artery disease) (Chronic) Colitis (Acute) Diabetic peripheral neuropathy associated with type 2 diabetes mellitus (Chronic) Acute kidney injury (nontraumatic) (Acute) Abnormal EKG (Acute) Constipation due to pain medication (Chronic) Chronic, continuous use of opioids (Chronic) Diastolic dysfunction (Chronic) Exertional dyspnea (Chronic) Ischemic cardiomyopathy (Chronic) Myocardial infarction of inferior wall (Chronic) Medical History (Updated 06/08/22 @ 18:51 by Ambreen Mccullough NP) Chronic respiratory failure with hypoxia Social History Smoking/Tobacco Use Status: Former Tobacco Use Tobacco: How many years used: 24 Smoking risk assessment performed?: Yes Alcohol Intake: former Drug use: Never Details: Pt quit alcohol and tobacoo 24 years ago. Do you feel safe at home: Yes Do you feel safe in your relationship?: Yes
--- NOTE | 2022-06-09 12:13 | CMDISCH_ITS ---
- If Service Date Differs Date of service: 06/09/22 Time of Service: 12:13 LACE Index Scoring Tool - Questions: Length of Stay (in days): 1 Acuity (Admit via E.D.?): Yes Comorbidities: Diabetes w/o Complication, Congestive Heart Failure E.D. Visits: 2 - Answers: Total Score: 9 Risk of Readmission: Low Risk Care Management Discharge Reason for Hospitalization: Acute on Chronic CHF Discharge Plan: Napoleon is discharged back to [facility]) in [place]. He is transported via private W/C van. Resumption of services are ordered. Napoleon will follow up with his community providers and discharge plan of care as prescribed. Patient/Family Education Needs: Review discharge instructions, limitations, medications and plan to follow up with community providers. ask me three. Services Needed at Discharge: Home Health Care Services ([facility] RN,PT,OT,ATHLETIC MONITOR. CM LMOM for Ruslan at [facility], indicating that pt will also need help managing his new medications/med adjustments. )
--- NOTE | 2022-06-09 12:57 | PDOC.HHF2F ---
Home Health Certification Home Health Certification: 1. Encounter Date and Reason I certify that Napoleon Jiménez was seen by Shirin Carrizales on 06/09/22 and that I had a [id number] encounter with this patient that meets the physician face to face encounter requirements. 2. Clinical Findings Supporting Skilled Need and Homebound Status I certify that home health services are medically necessary, include either intermittent usp and/or physical/speech therapy, and that this patient is homebound in that absences from the home require considerable and taxing effort and are infrequent or of short duration, or are attributable to the need to receive medical care. [X] (a) Attached documentation from encounter provides clinical findings supporting skilled need and homebound status (including what assistance patient requires to leave the home). The encounter with the patient was in whole, or in part, for the following medical condition, which is the primary reason for home health care: Acute on Chronic CHF Correction: instruct on new medication and assess compliance, routine nursing evaluation Physical and Occupational Therapy: routine evaluation and treatment Homebound: unable to safely leave unassisted due to unsteady gait, restricted ambulation due to wounds. 3. Certification and Authentication I certify that I composed the above information based on my clinical judgment relating to this patient's medical condition and, if applicable, clinical findings communicated to me by the NPP or inpatient physician who performed the Home Health Referral. All further orders will be obtained through _OLENA BAIG___(Community Based Physician - PCP)
--- NOTE | 2022-06-09 13:34 | NUR.NOTE ---
carpet measurer went in to get pt dressed, pt stated he tried to take the tape off his right hand and caused a skin tar, RN notified.
== END 2022-06-09 13:50 | disposition home health service (06) ==
LOC: ER 15:47 → MS 16:42
PROVIDERS: Nurse Practitioner Family; Admitting Provider Family Medicine; Emergency Provider Emergency Medicine; PCP Nurse Practitioner Primary Care; Visit Provider Family Medicine
DX: I50.23 Acute on chronic systolic (congestive) heart failure (principal); E87.6 Hypokalemia; I27.20 Pulmonary hypertension, unspecified; E11.42 Type 2 diabetes mellitus with diabetic polyneuropathy; K52.9 Noninfective gastroenteritis and colitis, unspecified; I25.10 Atherosclerotic heart disease of native coronary artery without angina pectoris; G47.33 Obstructive sleep apnea (adult) (pediatric); I25.2 Old myocardial infarction; I25.5 Ischemic cardiomyopathy; Z79.891 Long term (current) use of opiate analgesic; K59.03 Drug induced constipation; Z87.891 Personal history of nicotine dependence; Z79.4 Long term (current) use of insulin; J96.11 Chronic respiratory failure with hypoxia; L89.152 Pressure ulcer of sacral region, stage 2; E11.621 Type 2 diabetes mellitus with foot ulcer; L97.518 Non-pressure chronic ulcer of other part of right foot with other specified severity; S51.812A Laceration without foreign body of left forearm, initial encounter; X58.XXXA Exposure to other specified factors, initial encounter; E11.622 Type 2 diabetes mellitus with other skin ulcer; L97.318 Non-pressure chronic ulcer of right ankle with other specified severity; S70.311A Abrasion, right thigh, initial encounter; Z89.411 Acquired absence of right great toe; Z79.01 Long term (current) use of anticoagulants
CPT/HCPCS: 36415; 80048; 80053; 87635; 93005; 94640; 96365; 96372; 96374; 99285; 71045; 83735; 83880; 84484; 85025; 93010; 99217; 99219; G0378; J1644; J1940; J3480; J3490

== ENCOUNTER 2022-06-14 22:07 | Inpatient (IN) | payer OTHER, SELFPAY ==
[2022-06-14] VITALS (19 sets, daily range): BP systolic 111–120; BP diastolic 41–64; PULSE 60–81; RESP 10–28; TEMP 37; O2SAT 98
--- NOTE | 2022-06-14 22:00 | RT.EKG_ITS ---
APPROVED REPORT Exam: Resting ECG Reason for Exam: sob Patient Location: E HR:68 bpm ECG Measurements Heart Rate 68 AXIS MO 62 P 0 QRSd 102 QRS 5 QT 413 T 166 QTc 438 Conclusion Sinus rhythm...normal P axis, V-rate 60- 99 Low voltage, extremity leads...all extremity leads <0.5mV Nonspecific T abnormalities, lateral leads...T <-0.10mV, I aVL V5 V6 Physician: no stemi
--- NOTE | 2022-06-14 22:20 | W.ED.GENAD ---
Discharge Plan Disposition Patient Disposition: [facility] INPATIENT Condition: Deteriorating Discharge Details Chief Complaint: GenMedical Clinical Impression: CHF exacerbation, Admission for end of life care Primary Care Provider: Nasreen Thapa ED Provider: Bob Figueroa Home Meds and New Rx's Prescriptions: No Action duloxetine [Cymbalta] 60 mg capsule,delayed release(DR/EC) 60 mg PO BID Qty: 60 0RF Rx Instructions: 06/08/22 none in home spironolactone 25 mg tablet 25 mg PO DAILY Qty: 30 0RF terazosin 2 mg capsule 4 mg PO HS Qty: 30 0RF lorazepam 1 mg tablet 1 mg PO Q4H PRN PRN (Reason: anxiety, nausea, shortness of breath) Qty: 10 2RF Rx Instructions: hospice medication morphine concentrate 100 mg/5 mL (20 mg/mL) solution See Rx Instructions PO Q1H PRN MDD 240 mg Qty: 30 0RF Rx Instructions: 0.25-1.0 ml po q 1 hr prn orally every 1 hour, as needed; potassium chloride 10 MEQ capsule, extended release 60 meq PO BID aspirin [Aspir-81] 81 MG tablet,delayed release (DR/EC) 81 mg PO DAILY isosorbide mononitrate [Imdur] 60 MG tablet extended release 24 hr 120 mg PO DAILY budesonide-formoterol [Symbicort] 10.2 GM HFA aerosol inhaler 2 inh Inhalation BID Label Comments: not taking trazodone 50 MG tablet 150 mg PO HS Spiriva with HandiHaler 18 MCG capsule, w/inhalation device 18 mcg Inhalation DAILY Label Comments: not taking atorvastatin [Lipitor] 80 MG tablet 80 mg PO QAM sennosides 8.6 MG tablet 8.6 mg PO BID PRN PRN torsemide 20 MG tablet 80 mg PO BID clopidogrel [Plavix] 75 MG tablet 75 mg PO DAILY carvedilol 3.125 MG tablet 3.125 mg PO BID Qty: 60 3RF oxycodone-acetaminophen [Percocet] 10-325 mg Tablet 10 mg PO QID PRN ipratropium-albuterol 0.5 mg-3 mg(2.5 mg base)/3 mL Solution For Nebulization 3 ml INHALATION Q6H PRN carboxymethylcellulose sodium 0.5 % drops 2 drp QID fluticasone propion-salmeterol [Advair Diskus] 500-50 mcg/dose Blister With Device 1 inh INHALATION BID bupropion HCl 150 mg tablet extended release 24 hr 150 tab PO DAILY sertraline 100 mg tablet 100 mg PO DAILY tamsulosin 0.4 mg capsule 0.4 mg PO HS omeprazole 20 mg capsule,delayed release(DR/EC) 20 mg HS Jardiance 10 mg Tablet 10 mg PO QAM Qty: 14 0RF doxycycline monohydrate 100 mg capsule 100 mg PO BID Qty: 20 0RF gabapentin 300 mg capsule 600 mg PO TID insulin glargine [Lantus U-100 Insulin] 100 UNITS/ML solution 45 unit SQ .QAM allopurinol 100 MG tablet 200 mg PO DAILY nitroglycerin 4.9 GM spray,non-aerosol 4.9 g Translingual PRN PRN acetaminophen 650 mg Tablet 650 mg PO Q4H PRN fluticasone propion-salmeterol [Advair Diskus] 500-50 mcg/dose blister with device 1 inh INHALATION BID Label Comments: INHALE 1 PUFF BY MOUTH TWICE DAILY potassium chloride 20 mEq tablet,ER particles/crystals 3 tab PO BID Label Comments: TAKE 3 TABLETS (60MEQ) ORALLY ONCE DAILY insulin glargine [Basaglar KwikPen U-100 Insulin] 100 unit/mL (3 mL) Insulin Pen 40 unit SUBCUT DAILY Medical Decision Making 76-year-old male who is a palliative care patient with a past medical history of diabetes, obstructive sleep apnea, congestive heart failure with an ejection fraction of 30 to 35%, recently 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 Patient is normally on 2 L at baseline. He was noted to be struggling to breathe more this evening, his mentation has notably declined over the last day or 2 as well. When EMS arrived his oxygen was in the low 90s. He was started on 4 L via nonrebreather. Vital signs are otherwise stable. Mentation is slightly diminished but he is ANO x2. He was brought to the ER for further assessment. Patient himself has no complaints. Family state that they recently had a hospice visit within the last few days, but there were still some questions that they had and so they were scheduling a repeat hospice visit this coming week. No other complaints at this time. No other new modifying factors. Exam demonstrates elderly male, large abdomen, nondistended though. Crackles throughout his lung feldman. Appears to be notably physically decompensated chronically. No focal deficits but the patient appears generalized weak. Oxygen stable on 4 L via nonrebreather. Differential is highest for CHF exacerbation, there is mild confusion may be secondary to his chronic declining physical/medical status, versus metabolic component. We will do CT scan, laboratory evaluation, EKG, we will give Lasix to help diurese, monitor closely and reassess. EKG shows no evidence of STEMI. Bedside limited cardiac ultrasound shows decreased ejection fraction around 20 to 25%, as well as B-lines throughout his lung feldman. 12:31 AM Patient and family have refused x-ray and CT scan. Laboratory work-up shows evidence of stable hemoglobin, stable venous pH at 7.45 with a PCO2 of 61, stable sodium at 149, BUN of 34 with a creatinine of 1.2. Normal troponin, notably elevated proBNP at 19,000, normal thyroid. Urinalysis does show positive nitrates and leuk esterase, in the setting of a chronic indwelling Valles catheter though. We will send for culture. We have had a long discussion with the patient and his family, namely the patient's family and , myself and Dr. Ordoñez and I have discussed the patient's current scenario, and at this time the would like the patient made DNR/DNI and transition to comfort measures. We will admit the patient understanding this. I have extensively reviewed the treatment plan and discharge instructions with the patient. I have addressed all patient concerns at this time. The patient was made aware of what symptoms to monitor for that would warrant a return to the emergency department. Discussed the plan with the patient, they demonstrate verbal understanding and agreement with our assessment and plan at this time. The documentation in this chart was dictated using [employer] dictation software. Please excuse any dictation errors. HPI General Date/Time Provider Initiated Documentation: 06/14/22 23:14. HPI Narrative: 76-year-old male who is a palliative care patient with a past medical history of diabetes, obstructive sleep apnea, congestive heart failure with an ejection fraction of 30 to 35%, recently 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 Patient is normally on 2 L at baseline. He was noted to be struggling to breathe more this evening, his mentation has notably declined over the last day or 2 as well. When EMS arrived his oxygen was in the low 90s. He was started on 4 L via nonrebreather. Vital signs are otherwise stable. Mentation is slightly diminished but he is ANO x2. He was brought to the ER for further assessment. Patient himself has no complaints. Family state that they recently had a hospice visit within the last few days, but there were still some questions that they had and so they were scheduling a repeat hospice visit this coming week. No other complaints at this time. No other new modifying factors. Related Data Home Medications Medication Instructions Recorded Confirmed aspirin 81 mg tablet,delayed 81 mg PO DAILY 01/08/14 06/14/22 release (Aspir-) budesonide-formoterol HFA 160 2 inh inhalation BID 01/08/14 06/08/22 mcg-4.5 mcg/actuation aerosol inhaler (Symbicort) isosorbide mononitrate 60 mg 120 mg PO DAILY 01/08/14 06/08/22 tablet,extended release 24 hr (Imdur) potassium chloride 10 mEq 60 meq PO BID 01/08/14 06/14/22 capsule,extended release tiotropium bromide 18 mcg capsule 18 mcg inhalation DAILY 01/08/14 06/08/22 with inhalation device (Spiriva with HandiHaler) trazodone 50 mg tablet 150 mg PO HS 01/08/14 06/14/22 allopurinol 100 mg tablet 200 mg PO DAILY 10/16/16 06/14/22 insulin glargine 100 unit/mL 45 unit SQ .QAM 10/16/16 06/08/22 subcutaneous solution (Lantus U-100 Insulin) nitroglycerin 400 mcg/spray 4.9 g translingual PRN PRN 10/16/16 06/08/22 translingual atorvastatin 80 mg tablet (Lipitor) 80 mg PO QAM 09/07/17 06/14/22 sennosides 8.6 mg tablet 8.6 mg PO BID PRN PRN 09/07/17 06/08/22 clopidogrel 75 mg tablet (Plavix) 75 mg PO DAILY 10/07/17 06/08/22 torsemide 20 mg tablet 80 mg PO BID 10/07/17 06/14/22 carvedilol 3.125 mg tablet 3.125 mg PO BID #60 tabs 10/12/17 06/14/22 oxycodone-acetaminophen 10 mg-325 10 mg PO QID PRN 09/21/18 06/14/22 mg tablet (Percocet) bupropion HCl 150 mg 24 hr tablet, 150 tab PO DAILY 05/26/22 06/14/22 extended release carboxymethylcellulose sodium 0.5 2 drp QID 05/26/22 06/14/22 % eye drops fluticasone 500 mcg-salmeterol 50 1 inh inhalation BID 05/26/22 06/08/22 mcg/dose blistr powdr for inhalation (Advair Diskus) ipratropium 0.5 mg-albuterol 3 mg 3 ml inhalation Q6H PRN 05/26/22 06/08/22 (2.5 mg base)/3 mL nebulization soln omeprazole 20 mg capsule,delayed 20 mg HS 05/26/22 06/14/22 release sertraline 100 mg tablet 100 mg PO DAILY 05/26/22 06/14/22 tamsulosin 0.4 mg capsule 0.4 mg PO HS 05/26/22 06/14/22 doxycycline monohydrate 100 mg 100 mg PO BID #20 caps 05/31/22 06/14/22 capsule empagliflozin 10 mg tablet 10 mg PO QAM #14 tabs 05/31/22 06/14/22 (Jardiance) duloxetine 60 mg capsule,delayed 60 mg PO BID #60 caps 06/05/22 06/08/22 release (Cymbalta) gabapentin 300 mg capsule 600 mg PO TID 06/05/22 06/14/22 spironolactone 25 mg tablet 25 mg PO DAILY #30 tabs 06/05/22 06/08/22 terazosin 2 mg capsule 4 mg PO HS #30 caps 06/05/22 06/08/22 lorazepam 1 mg tablet 1 mg PO Q4H PRN PRN anxiety, 06/13/22 06/14/22 nausea, shortness of breath #10 tabs morphine concentrate 100 mg/5 mL See Rx Instructions PO Q1H PRN #30 06/13/22 06/14/22 (20 mg/mL) oral solution mL acetaminophen 650 mg tablet 650 mg PO Q4H PRN 06/14/22 06/14/22 fluticasone 500 mcg-salmeterol 50 1 inh inhalation BID 06/14/22 06/14/22 mcg/dose blistr powdr for inhalation (Advair Diskus) insulin glargine 100 unit/mL (3 40 unit subcut DAILY 06/14/22 06/14/22 mL) subcutaneous pen (Basaglar KwikPen U-100 Insulin) potassium chloride 20 mEq 3 tab PO BID 06/14/22 06/14/22 tablet,extended release(part/cryst) Previous Rx's Medication Instructions Recorded carvedilol 3.125 mg tablet 3.125 mg PO BID #60 tabs 10/12/17 doxycycline monohydrate 100 mg 100 mg PO BID #20 caps 05/31/22 capsule empagliflozin 10 mg tablet 10 mg PO QAM #14 tabs 05/31/22 (Jardiance) duloxetine 60 mg capsule,delayed 60 mg PO BID #60 caps 06/05/22 release (Cymbalta) spironolactone 25 mg tablet 25 mg PO DAILY #30 tabs 06/05/22 terazosin 2 mg capsule 4 mg PO HS #30 caps 06/05/22 lorazepam 1 mg tablet 1 mg PO Q4H PRN PRN anxiety, 06/13/22 nausea, shortness of breath #10 tabs morphine concentrate 100 mg/5 mL See Rx Instructions PO Q1H PRN #30 06/13/22 (20 mg/mL) oral solution mL Allergies Allergy/AdvReac Type Severity Reaction Status Date / Time Penicillins Allergy Anaphylaxsi Unverified 06/08/22 11:47 s pregabalin Allergy Other (See Unverified 06/14/22 22:44 Comment) atenolol AdvReac Other (See Unverified 06/14/22 22:44 Comment) metoprolol AdvReac Very low Unverified 06/08/22 11:47 pulse General MAIN: 3 Review of Systems All systems reviewed & are unremarkable except as noted in HPI and below PFSH All Active Problems (Updated 06/15/22 @ 00:37 by Bob Figueroa DO) CHF exacerbation (Acute) Admission for end of life care (Acute) Hypokalemia (Chronic) Thyroid mass of unclear etiology (Acute) Wound dehiscence, surgical (Acute) Pulmonary hypertension (Acute) Acute on chronic systolic CHF (congestive heart failure) (Acute) Diabetes mellitus (Chronic) History of pericarditis (Chronic) [place]O (obstructive sleep apnea) (Chronic) CAD (coronary artery disease) (Chronic) Colitis (Acute) Diabetic peripheral neuropathy associated with type 2 diabetes mellitus (Chronic) Acute kidney injury (nontraumatic) (Acute) Abnormal EKG (Acute) Constipation due to pain medication (Chronic) Chronic, continuous use of opioids (Chronic) Diastolic dysfunction (Chronic) Exertional dyspnea (Chronic) Ischemic cardiomyopathy (Chronic) Myocardial infarction of inferior wall (Chronic) Medical History (Updated 06/15/22 @ 00:37 by Bob Figueroa DO) Chronic respiratory failure with hypoxia Social History Smoking/Tobacco Use Status: Former Tobacco Use Tobacco: How many years used: 24 Smoking risk assessment performed?: Yes Alcohol Intake: former Drug use: Never Details: Pt quit alcohol and tobacoo 24 years ago. Do you feel safe at home: Yes Do you feel safe in your relationship?: Yes Exam Narrative Exam Narrative: 1.Const: Elderly appearing 2.Eyes: PERRL, no conjunctival injection, and symmetrical lids. Mild crusting and discharge from the eyes. 3.ENT: Atraumatic external nose and ears. Moist MM. Neck: Symmetric, trachea midline, No thyromegaly. 4.CVS: +S1/S2, No murmurs or gallops. Peripheral pulses 2+ and equal in all extremities. Brisk capillary refill in all extremities. 5.RESP: Crackles throughout. No wheezes. No rhonchi 6.GI: Soft, notably large, nontender/Nondistended, No hepatosplenomegaly. No guarding or rebound. 7.MSK: Normocephalic/Atraumatic, Extremities w/o deformity or ttp No cyanosis or clubbing, Normal movement of all extremities. However the patient appears very weak in general. 8.Skin: Warm, Dry. No rashes or lesions. 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 Patient will respond to commands. Sensation grossly intact, no focal neurologic deficits. 10.Psych: (AAO) x2. Sleepy appearing. Responds to verbal stimulation POCUS Exam (ED) Limited Cardiac Exam DATE OF EXAM: 06/14/22 TIME OF EXAM: 22:41 PROVIDER THAT PERFORMED THE STUDY: Bob Figueroa IS THIS A REPEAT STUDY: no REASON FOR EXAM: Congestive heart failure VISUALIZED STRUCTURES: Four Chambers VIEW OBTAINED: Parasternal long-axis PERTINENT FINDINGS/IMPRESSION: LV dysfunction and RV dysfunction DIFFERENTIAL DIAGNOSES: CHF, worsening cardiac output. B-lines were noted in the lungs. Exam complete
[2022-06-14 22:22] LABS: Abs Immature Grans 0.02 10^3/uL (0.0-0.06); Absolute Basophil Count 0.06 10^3/uL (0.0-0.2); Absolute Eosinophil Count 0.31 10^3/uL (0.0-0.7); Absolute Lymphocyte Count 0.95 10^3/uL (1.2-3.4); Absolute Monocyte Count 0.82 10^3/uL (0.1-0.8); Absolute Neutrophil Count 6.31 10^3/uL (1.2-6.7); Basophils % 0.7; Eosinophils % 3.7; HCT 36.3 % (40.0-50.0); HGB 10.7 g/dL (13.5-17.5); Immature Grans % 0.2; Lymphocytes % 11.2; MCH 25.8 pg (27.0-33.0); MCHC 29.5 % (32.0-36.0); MCV 88 fL (80-95); MPV 10.6 fL (8.0-11.0); Monocytes % 9.7; Neutrophils % 74.5; Platelet Count 138 10^3/uL (130-400); RBC 4.15 10^6/uL (4.36-5.78); RDW 18.5 % (11.8-14.1); RDW-SD 58.1 fL; WBC 8.47 10^3/uL (4.4-10.8)
[2022-06-14 22:22] LABS: HCO3 (Venous) 42 mmol/L (23-28); O2 Sat (Venous) 99 %; TCO2 (Venous) 39 mmol/L (24-29); pH (Venous) 7.45 (7.31-7.41); pO2 (Venous) 110 mmHg
[2022-06-14 22:23] LABS: BE (Venous) > 15 mmol/L (-2-3)
[2022-06-14 22:24] LABS: pCO2 (Venous) 61 mmHg (41-51)
[2022-06-14 22:35] LABS: Source Nasal/Nares
[2022-06-14 22:36] LABS: INR 1.2 (0.9-1.1); PTT Activated 27.6 sec (21.0-27.5); Prothrombin Time 11.9 sec (9.3-11.0)
[2022-06-14 22:37] LABS: Bilirubin Negative (Negative); Blood Large (Negative); Clarity Sl Cloudy (Clear); Glucose 100 mg/dL (Negative); Ketones Negative (Negative); Leukocyte Esterase Large (Negative); Nitrite Positive (Negative); Urobilinogen 0.2 EU/dL (Up TO 0.2)
[2022-06-14] MEDS: Furosemide 20 MG/2 ML VIAL IVP (22:40)
[2022-06-14 22:42] LABS: RBC >50 HPF (0-2); WBC >50 HPF (0-5)
[2022-06-14 22:43] LABS: Bacteria Moderate HPF (Negative); C & S Indicated? Yes; Casts Negative LPF (Negative); Crystals Negative HPF (Negative); Epithelial Cells Few HPF (Negative); Mucus Negative (Negative)
[2022-06-14 22:45] LABS: Ammonia 31 umol/L (11-32)
[2022-06-14 22:49] LABS: ALT 32 U/L (16-63); AST 38 U/L (15-37); Albumin 2.4 g/dL (3.4-5.0); Alkaline Phosphatase 298 U/L (46-116); Anion Gap 0.5 mmol/L (3-11); BUN 34 mg/dL (7-18); Bilirubin, Total 0.8 mg/dL (0.2-1.0); CO2 42.5 mmol/L (21.0-32.0); CREATININE 1.2 mg/dL (0.70-1.30); Calcium 9.5 mg/dL (8.5-10.1); Chloride 106 mmol/L (98-107); Estimated GFR 59.18 (mL/min/1.73m2); Glucose 92 mg/dL (74-106); Potassium 4.7 mmol/L (3.5-5.1); Sodium 149 mmol/L (136-145); TSH (W/Ref FT4) 3.42 uIU/mL (0.36-3.74); Total Protein 6.9 g/dL (6.4-8.2); Troponin I 55 ng/L (<or=60)
[2022-06-14 22:56] LABS: NT-proBNP 18935 pg/mL (<300)
[2022-06-14 23:12] LABS: COVID-19 PCR Negative (Negative)
[2022-06-15] VITALS (9 sets, daily range): BP systolic 116–117; BP diastolic 52–56; PULSE 58–60; RESP 17–19
--- NOTE | 2022-06-15 00:09 | HPE_ITS ---
Assessment and Plan Assessment and plan (1) Diabetes mellitus: Status: Chronic Assessment and plan: We will check blood sugars every 6 hours and treat as needed. (2) Acute on chronic systolic CHF (congestive heart failure): Status: Acute Assessment and plan: I believe his heart failure is severe at the present time. I will go ahead and give him 80 milligrams furosemide now to attempt diuresis. I suspect however he is at an end-stage situation at the present time. I have relayed this to the family. They think the focus of to be comfort measures. I agree with them. Please see orders. I will continue with some of his current medicines again with the focus of maintaining his comfort. History of Present Illness History of Present Illness Chief Complaint: Shortness of breath Narrative: This 76-year-old male is here with his , daughter and son-in-law. He has been declining in the last few months. He has been here twice, most recently from June 08 to . He is also here from May 26 to . He has severe heart failure along with diabetes mellitus. He has been with a primary intermediate [facility] last discharge a few days ago. His oximetry measurements were in the 50s earlier tonight and he was brought appear for further evaluation. He had been under a DNR status until about a week ago and that was changed to full code however the family now thinks that DNR status is the best option for him considering his recent decline. His son-in-law and both feel that is the best option at this time. Tonight he he was quite restless and pulling at his bladder catheter but he is more calm at the present time. He actually is not arousable at this time. I had suggested that we check a chest x-ray but family did not want to do that. Dr. Figueroa had suggested a CT scan and they declined on that suggestion also. Review of Systems Narrative: Not obtainable at this time due to his mental status. He does not seem to be in any pain. PFSH All Active Problems Hypokalemia (Chronic) Thyroid mass of unclear etiology (Acute) Wound dehiscence, surgical (Acute) Pulmonary hypertension (Acute) Acute on chronic systolic CHF (congestive heart failure) (Acute) Diabetes mellitus (Chronic) History of pericarditis (Chronic) CHAPARRO (obstructive sleep apnea) (Chronic) CAD (coronary artery disease) (Chronic) Colitis (Acute) Diabetic peripheral neuropathy associated with type 2 diabetes mellitus (Chronic) Acute kidney injury (nontraumatic) (Acute) Abnormal EKG (Acute) Constipation due to pain medication (Chronic) Chronic, continuous use of opioids (Chronic) Diastolic dysfunction (Chronic) Exertional dyspnea (Chronic) Ischemic cardiomyopathy (Chronic) Myocardial infarction of inferior wall (Chronic) Medical History Chronic respiratory failure with hypoxia Social History Smoking/Tobacco Use Status: Former Tobacco Use Tobacco: How many years used: 24 Smoking risk assessment performed?: Yes Alcohol Intake: former Drug use: Never Details: Pt quit alcohol and tobacoo 24 years ago. Do you feel safe at home: Yes Do you feel safe in your relationship?: Yes Meds Allergies and Home Medications Allergies Allergy/AdvReac Type Severity Reaction Status Date / Time Penicillins Allergy Anaphylaxsi Unverified 06/08/22 11:47 s pregabalin Allergy Other (See Unverified 06/14/22 22:44 Comment) atenolol AdvReac Other (See Unverified 06/14/22 22:44 Comment) metoprolol AdvReac Very low Unverified 06/08/22 11:47 pulse Home Medications Medication Instructions Recorded Confirmed Type aspirin 81 mg tablet,delayed 81 mg PO DAILY 01/08/14 06/14/22 History release (Aspir-) budesonide-formoterol HFA 160 2 inh inhalation BID 01/08/14 06/08/22 History mcg-4.5 mcg/actuation aerosol inhaler (Symbicort) isosorbide mononitrate 60 mg 120 mg PO DAILY 01/08/14 06/08/22 History tablet,extended release 24 hr (Imdur) potassium chloride 10 mEq 60 meq PO BID 01/08/14 06/14/22 History capsule,extended release tiotropium bromide 18 mcg capsule 18 mcg inhalation DAILY 01/08/14 06/08/22 History with inhalation device (Spiriva with HandiHaler) trazodone 50 mg tablet 150 mg PO HS 01/08/14 06/14/22 History allopurinol 100 mg tablet 200 mg PO DAILY 10/16/16 06/14/22 History insulin glargine 100 unit/mL 45 unit SQ .QAM 10/16/16 06/08/22 History subcutaneous solution (Lantus U-100 Insulin) nitroglycerin 400 mcg/spray 4.9 g translingual PRN PRN 10/16/16 06/08/22 History translingual atorvastatin 80 mg tablet (Lipitor) 80 mg PO QAM 09/07/17 06/14/22 History sennosides 8.6 mg tablet 8.6 mg PO BID PRN PRN 09/07/17 06/08/22 History clopidogrel 75 mg tablet (Plavix) 75 mg PO DAILY 10/07/17 06/08/22 History torsemide 20 mg tablet 80 mg PO BID 10/07/17 06/14/22 History carvedilol 3.125 mg tablet 3.125 mg PO BID #60 tabs 10/12/17 06/14/22 Rx oxycodone-acetaminophen 10 mg-325 10 mg PO QID PRN 09/21/18 06/14/22 History mg tablet (Percocet) bupropion HCl 150 mg 24 hr tablet, 150 tab PO DAILY 05/26/22 06/14/22 History extended release carboxymethylcellulose sodium 0.5 2 drp QID 05/26/22 06/14/22 History % eye drops fluticasone 500 mcg-salmeterol 50 1 inh inhalation BID 05/26/22 06/08/22 History mcg/dose blistr powdr for inhalation (Advair Diskus) ipratropium 0.5 mg-albuterol 3 mg 3 ml inhalation Q6H PRN 05/26/22 06/08/22 History (2.5 mg base)/3 mL nebulization soln omeprazole 20 mg capsule,delayed 20 mg HS 05/26/22 06/14/22 History release sertraline 100 mg tablet 100 mg PO DAILY 05/26/22 06/14/22 History tamsulosin 0.4 mg capsule 0.4 mg PO HS 05/26/22 06/14/22 History doxycycline monohydrate 100 mg 100 mg PO BID #20 caps 05/31/22 06/14/22 Rx capsule empagliflozin 10 mg tablet 10 mg PO QAM #14 tabs 05/31/22 06/14/22 Rx (Jardiance) duloxetine 60 mg capsule,delayed 60 mg PO BID #60 caps 06/05/22 06/08/22 Rx release (Cymbalta) gabapentin 300 mg capsule 600 mg PO TID 06/05/22 06/14/22 History spironolactone 25 mg tablet 25 mg PO DAILY #30 tabs 06/05/22 06/08/22 Rx terazosin 2 mg capsule 4 mg PO HS #30 caps 06/05/22 06/08/22 Rx lorazepam 1 mg tablet 1 mg PO Q4H PRN PRN anxiety, 06/13/22 06/14/22 Rx nausea, shortness of breath #10 tabs morphine concentrate 100 mg/5 mL See Rx Instructions PO Q1H PRN #30 06/13/22 06/14/22 Rx (20 mg/mL) oral solution mL acetaminophen 650 mg tablet 650 mg PO Q4H PRN 06/14/22 06/14/22 History fluticasone 500 mcg-salmeterol 50 1 inh inhalation BID 06/14/22 06/14/22 History mcg/dose blistr powdr for inhalation (Advair Diskus) insulin glargine 100 unit/mL (3 40 unit subcut DAILY 06/14/22 06/14/22 History mL) subcutaneous pen (Basaglar KwikPen U-100 Insulin) potassium chloride 20 mEq 3 tab PO BID 06/14/22 06/14/22 History tablet,extended release(part/cryst) Exam Const Nutritional Appearance: obese Orientation: not alert, not awake and not oriented x3 Neck Neck: normal visual inspection and no lymphadenopathy Resp Auscultation: clear to auscultation bilaterally, no rales and no rhonchi Cardio Rate: regular rate Rhythm: regular rhythm Heart Sounds: S1 normal, S2 normal and no murmurs GI Palpation: soft and no hepatosplenomegaly Extrem General: no clubbing, no cyanosis and edema Other: +3 edema both lower legs. Results Labs Result diagrams: 06/14/22 22:13 06/14/22 22:12 Labs: Laboratory Results - last 24 hr 06/14/22 06/14/22 06/14/22 22:12 22:12 22:13 WBC RBC Hgb Hct MCV MCH MCHC RDW Plt Count MPV Immature Gran % Neutrophils % Lymphocytes % Monocytes % Eosinophils % Basophils % Nucleated RBC % Absolute Neutrophils Absolute Lymphocytes Absolute Monocytes Absolute Eosinophils Absolute Basophils PT INR APTT VBG pH 7.45 H VBG pCO2 61 H* VBG pO2 110 VBG HCO3 42 H VBG Total CO2 39 H VBG O2 Saturation 99 VBG Base Excess > 15 H Sodium 149 H Potassium 4.7 Chloride 106 Carbon Dioxide 42.5 H Anion Gap 0.5 L BUN 34 H Creatinine 1.2 Estimated GFR/1.73 m2 59.18 Glucose 92 Calcium 9.5 Total Bilirubin 0.8 AST 38 H ALT 32 Alkaline Phosphatase 298 H Ammonia Troponin I 55 NT-Pro-B Natriuret Pep 81705 H Total Protein 6.9 Albumin 2.4 L TSH 3.42 Urine Color Urine Clarity Urine pH Ur Specific Amoret Urine Protein Urine Ketones Urine Blood Urine Nitrite Urine Bilirubin Urine Urobilinogen Ur Leukocyte Esterase Urine RBC Urine WBC Ur Epithelial Cells Urine Crystals Urine Bacteria Urine Casts Urine Mucus Ur Culture Indicated? Urine Glucose COVID-19 Source SARS-CoV-2 (PCR) 06/14/22 06/14/22 06/14/22 22:13 22:13 22:14 WBC 8.47 RBC 4.15 L Hgb 10.7 L Hct 36.3 L MCV 88 MCH 25.8 L MCHC 29.5 L RDW 18.5 H Plt Count 138 MPV 10.6 Immature Gran % 0.2 Neutrophils % 74.5 Lymphocytes % 11.2 Monocytes % 9.7 Eosinophils % 3.7 Basophils % 0.7 Nucleated RBC % 0.0 Absolute Neutrophils 6.31 Absolute Lymphocytes 0.95 L Absolute Monocytes 0.82 H Absolute Eosinophils 0.31 Absolute Basophils 0.06 PT 11.9 H INR 1.2 H APTT 27.6 H VBG pH VBG pCO2 VBG pO2 VBG HCO3 VBG Total CO2 VBG O2 Saturation VBG Base Excess Sodium Potassium Chloride Carbon Dioxide Anion Gap BUN Creatinine Estimated GFR/1.73 m2 Glucose Calcium Total Bilirubin AST ALT Alkaline Phosphatase Ammonia 31 Troponin I NT-Pro-B Natriuret Pep Total Protein Albumin TSH Urine Color Urine Clarity Urine pH Ur Specific Amoret Urine Protein Urine Ketones Urine Blood Urine Nitrite Urine Bilirubin Urine Urobilinogen Ur Leukocyte Esterase Urine RBC Urine WBC Ur Epithelial Cells Urine Crystals Urine Bacteria Urine Casts Urine Mucus Ur Culture Indicated? Urine Glucose COVID-19 Source SARS-CoV-2 (PCR) 06/14/22 06/14/22 22:20 22:30 WBC RBC Hgb Hct MCV MCH MCHC RDW Plt Count MPV Immature Gran % Neutrophils % Lymphocytes % Monocytes % Eosinophils % Basophils % Nucleated RBC % Absolute Neutrophils Absolute Lymphocytes Absolute Monocytes Absolute Eosinophils Absolute Basophils PT INR APTT VBG pH VBG pCO2 VBG pO2 VBG HCO3 VBG Total CO2 VBG O2 Saturation VBG Base Excess Sodium Potassium Chloride Carbon Dioxide Anion Gap BUN Creatinine Estimated GFR/1.73 m2 Glucose Calcium Total Bilirubin AST ALT Alkaline Phosphatase Ammonia Troponin I NT-Pro-B Natriuret Pep Total Protein Albumin TSH Urine Color Yellow Urine Clarity Sl Cloudy Urine pH 7.0 Ur Specific Amoret 1.020 Urine Protein Trace H Urine Ketones Negative Urine Blood Large H Urine Nitrite Positive H Urine Bilirubin Negative Urine Urobilinogen 0.2 Ur Leukocyte Esterase Large H Urine RBC >50 H Urine WBC >50 H Ur Epithelial Cells Few Urine Crystals Negative Urine Bacteria Moderate Urine Casts Negative Urine Mucus Negative Ur Culture Indicated? Yes Urine Glucose 100 COVID-19 Source Nasal/Nares SARS-CoV-2 (PCR) Negative Last Vital Signs Temp 37.0 C 06/14/22 22:18 Pulse 64 06/14/22 23:19 Resp 21 06/14/22 23:20 BP 120/58 L 06/14/22 23:23 Pulse Ox 98 06/14/22 22:18
--- OUTSIDE RECORDS SUMMARY | 2022-06-15 00:20 | XMS_ITS | Encounter Summary ---
:1945 Author Organization [facility] [place] [address] Care Team Providers Name Role Phone Edil Schmidt APRN Primary Care Provider Encounter Details Date Type Department Care Team Description 10/11/2017 Telephone Cardiology Shayan Germain MD [facility] [place] [address] CARDIOLOGY DEPT [phone] [place], [place] [address] (Wo rk) Social History Tobacco Use Types Packs/Day Years Used Date Former Smoker Cigarettes Quit: 10/26/18 92 Smokeless Tobacco: Never Used Alcohol Use Standard Drinks/Week Comments No 0 (1 standard drink = 0.6 oz pure alcoho l) Sex Assigned at Date Recorded Not on file documented as of this encounter Miscellaneous Notes Telephone Encounter - Shayan Germain - 10/11/2017 10:59 AM EST 10/11/2017 Napoleon Jiménez Initial Contact Date: 10/11/2017 Initial contact time: 11:17 Referring Provider: Harsh Light MD Patient Location: [facility] Reason for presentation at OSH: Patient having shortness of breath. No EKG to share. Wants to discuss patient. Stent placed 3 weeks ago. 72yo man. Pulmonary disease, CAD. Admitted from cardiac rehab. Presented in August. Went to cardiac rehab. Feels no better than he did before. Troponin downtrending. Does not appear volume overloaded. Creatinine a bit up. Plan: Discussed patient's outlook. Unfortunately has severe disease, not great targets for stenting. OSH will get repeat myocardial perfusion study on Thursday to see if there is still large area of ischemia. Will also attempt to get further volume off given his LVEDP was 22 when he was cathed last month. We are available for further discussion if needed. - Above recommendations are based on information received over the phone; I have not personally interviewed or examined this patient. Shayan Germain MD [employer] [id number] documented in this encounter Plan of Treatment Not on filedocumented as of this encounter Visit Diagnoses Not on filedocumented in this encounter Care Teams [employer] Relationship Specialty Start Date End Date Edil Schmidt, MESFIN PCP - General 05/06/12 EMERGENCY DEPT [address] [place] [address] [place] [address] documented as of this encounter
--- OUTSIDE RECORDS SUMMARY | 2022-06-15 00:20 | XMS_ITS | Clinical Summary ---
:1945 Author Organization [facility] [place] [address] Care Team Providers Name Role Phone Edil Schmidt APRN Primary Care Provider Allergies Active Allergy Reactions Severity Noted Date Comments Zolpidem Other (See Comments) 05/03/2012 confusi on Fentanyl Other (See Comments) 05/03/2012 Confusi on Atorvastatin Other (See Comments) 05/03/2012 [place] we[place] Penicillins Hives High Anaphylaxis Medications Medication Sig Dispensed Refills Start Date End Date Status traZODone (DESYREL) 50 Take 100 mg by 0 Active mg tablet mouth nightly as needed. losartan (COZAAR) 100 Take 50 mg by 0 Active mg tablet mouth daily. FELODIPINE ORAL Take 5 mg by 0 A ctive mouth every morning. aspirin 81 mg EC tablet Take 81 mg by 0 Active mouth daily. tiotropium (SPIRIVA) 18 Inhale 18 mcg 0 Active mcg Capsule, into the lungs w/Inhalation Device daily. oxyCODONE-acetaminophen Take 1 tablet by 0 Active (PERCOCET) 5-325 mg mouth every 4 Tablet hours as needed for Pain. isosorbide mononitrate Take 120 mg by 0 Active (IMDUR) 120 mg Tablet mouth daily. Sustained Release 24 hr glipiZIDE (GLUCOTROL) 5 Take 2.5 mg by 0 Active mg Tablet mouth 2 times daily (before meals). DULoxetine (CYMBALTA) Take 60 mg by 0 Active 60 mg Capsule, Delayed mouth 2 times Release(E.C.) daily. docusate sodium Take 100 mg by 0 Active (COLACE) 100 mg Capsule mouth 3 times daily as needed for Constipation. budesonide-formoterol Inhale 2 puffs 0 Active (SYMBICORT) 160-4.5 into the lungs 2 mcg/actuation HFA times daily. Aerosol Inhaler atorvastatin (LIPITOR) Take 80 mg by 0 Active 80 mg Tablet mouth daily. albuterol 90 Inhale 2 puffs 0 Ac tive mcg/actuation HFA into the lungs Aerosol Inhaler every 4 hours as needed for Wheezing or Shortness of Breath. Use with spacer buPROPion (WELLBUTRIN Take 100 mg by 0 Active SR) 100 mg Tablet mouth every Sustained Release 12 hr morning. terazosin (HYTRIN) 2 mg Take 4 mg by 0 Active Capsule mouth nightly. allopurinol (ZYLOPRIM) Take 100 mg by 0 Active 100 mg Tablet mouth daily. nitroGLYcerin Place 1 spray 0 Ac tive (NITROLINGUAL) 400 under the tongue mcg/spray [place], every 5 minutes Non-Aerosol as needed for Chest pain. clopidogrel (PLAVIX) 75 Take 1 tablet by 90 tablet 3 7 Active mg Tablet mouth daily. torsemide (DEMADEX) 20 Take 2 tablets by 60 tablet 3 7 Active mg Tablet mouth 2 times daily. carvedilol (COREG) 6.25 Take 1 tablet by 60 tablet 0 7 Active mg TabletIndications: mouth 2 times Congestive heart daily (with failure, unspecified meals). congestive heart failure chronicity, unspecified congestive heart failure type spironolactone Take 1 tablet by 30 tablet 0 09/30/2017 Active (ALDACTONE) 25 mg mouth daily. TabletIndications: Congestive heart failure, unspecified congestive heart failure chronicity, unspecified congestive heart failure type, Heart failure, unspecified heart failure chronicity, unspecified heart failure type, Ischemic cardiomyopathy Active Problems Problem Noted Date Syncope 11/15/2018 Neuropathic pain 12/17/2011 Ischemic cardiomyopathy 09/16/2008 Overview: Diastolic dysfunction, EF 50% (05/04/12) NSTEMI (non-ST elevated myocardial infarction) 008 Overview: Elevated Troponins/NSTEMI ASCVD (arteriosclerotic cardiovascular disease) Overview: --CABG in 2007, MARTINEZ to LAD, SVG to OM, SVG to ramus --BMS to 90% stenosis of LAD and BMS to LCX in 2001 after having anginal symptoms --Recurrent pain with cath in 08/2002. S howed mild restenosis in LCX stent, severe restenosis in LAD stent --05/05/2008 Last Cardiac Cath showed EF 45%, 20% stenosis of LAD c. LAD stent PCI with cutting balloon/b rachy therapy, August 2002. d. Recurrent pain, January 2003, recathet erized at an outside facility with LAD stenosis distal to first stent, add itional stent placed. e. Heart catheterization, [facility]: 20% distal LM, mild diffuse proximal LAD; normal LCX and RC A; EF 45%. 2. History of pericarditis, AugustNovember 2002. 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 Hypertension Resolved Problems Problem Noted Date Resolved Date Shortness of breath 05/03/2012 05/05/2012 Pneumonia 09/12/2008 05/03/2012 Overview: Diagnosed at OSH Encounters Date Type Specialty Care Team Description 05/28/2022 Hospital Encounter Cardiology Edgar Zapata MD Co ngestive heart failure, unspec ified HF chronicity, uns pecified heart failure t ype 03/21/2022 Orders Only Zoie Martinez DPM from Last 3 Months Immunizations Name Administration Dates Next Due Influenza Vaccine, Whole 07/26/2008 Pneumococcal Polyvalent 23 08/26/2006 Family History Medical History Relation Comments Heart Disease Father Hypertension Relation Status Comments Father (Age 80) Mother Alive Social History Tobacco Use Types Packs/Day Years Used Date Former Smoker Cigarettes Quit: 10/26/18 92 Smokeless Tobacco: Never Used Tobacco Cessation: Counseling Given: No Alcohol Use Standard Drinks/Week Comments No 0 (1 standard drink = 0.6 oz pure alcoho l) Sex Assigned at Date Recorded Not on file Last Filed Vital Signs Vital Sign Reading Time Taken Comments Blood Pressure 106/50 09/15/2017 11:31 AM EST Pulse 59 09/15/2017 11:31 AM EST Temperature 36.4 ??C (97.5 ??F) 09/15/2017 11:31 AM EST Respiratory Rate 16 09/15/2017 11:31 AM EST Oxygen Saturation 96% 09/15/2017 11:31 AM EST Inhaled Oxygen Concentration - - Weight 120.2 kg (264 lb 15.9 oz) 09/15/2017 5:00 AM EST Height 167.6 cm (5' 6) 09/10/2017 11:25 PM EST Body Mass Index 42.77 09/10/2017 11:25 PM EST Plan of Treatment Health Maintenance Due Date Last Done Comments Covid-19 Vaccine (#1) 1952 DM Opthalmology Exam 1957 DM Urine Microalbumin yearly 1957 Hepatitis C Screening 1965 Tdap adult 1966 Tetanus vaccine 1966 Colonoscopy 1992 Zoster vaccine (1 of 2) 1997 Pneumoccocal Vaccine: 65+ (2 - 08/26/2007 08/26/2006 PCV) AAA Screen 2012 DM Hemoglobin A1c 12/11/2017 09/10/2017, 05/04/2012 DM Creatinine yearly 09/15/2018 09/15/2017, 09/14/2017, 09/13/2017, Additional history exists Influenza (Flu) vaccine (1 of 1 - 06/26/2022 07/26/2008 Influenza standard series) Procedures Procedure Name Priority Date/Time Associated Comments Diagnosis ECHOCARDIOGRAM COMPLETE Routine 05/28/2022 3:08 Congestive hea rt Results for this PM EDT failure, procedure are i n unspecified HF the results chronicity, section. unspecified heart failure type BACTERIAL Routine 03/21/2022 10:19 Results for this IDENTIFICATION AM EDT procedure are in the results section. from Last 3 Months Results ECHOCARDIOGRAM COMPLETE (05/28/2022 3:08 PM EDT) P athologist Signature EF 33 HEARTLAB SYSTEM Specimen (Source) Anatomical Collection Method Collection Time Re ceived Time Location / / Volume Laterality 05/28/2022 12:44 PM EDT Narrative HEARTLAB SYSTEM - 05/28/2022 3:34 PM EDT ? Echocardiogram Report Name: DARREN VALENTINE ?Study Date: 05/28/2022 12:44 PMBP: 134/74 mmHg ? Patient Location: 4A : 1945 ? Height: 183 cm ? Account: [id number] Age: 76 yrs ? Weight: 125 kg Gender: Male ?BSA: 2.4 m2 Ordering Physician: EDGAR ZAPATA Referring Physician: EDGAR ZAPATA Performed By: [place] Reason For Study: Congestive heart failu re Exam Location: [facility]. Interpretation Summary Technically limited study. Left ventricle is moderately dilated. Le ft ventricular systolic function is moderately reduced. The left ventricular ejection fraction is 33% by Murguia's biplane. Moderate global hypokinesis. The right ventricle is of normal size. R ight ventricular systolic function is normal. The peak right ventricular systo lic pressure is 44 mmHg, assuming a right atrial pressure of 15 mmHg. Mild biatrial enlargement. The aortic valve is tricuspid. The aorti c valve is mildly thickened. There is no aortic stenosis. There is moderate aorti c regurgitation. Moderate calcification of the mitral dilip ulus. The mildly thickened mitral leaflets have restricted closure. There is probab ly moderate mitral regurgitation. There is probably moderate tricuspid reg urgitation. No comparison study is available. Procedure Complete-[id number]. Suboptimal quality. Left Ventricle Left ventricle is moderately dilated. Le ft ventricular systolic function is moderately reduced. The left ventricular ejection fraction is 33% by Murguia's biplane. Moderate global hypokinesis. Right Ventricle The right ventricle is of normal size. R ight ventricular systolic function is normal. Left Atrium The left atrium is mildly dilated. Right Atrium The right atrium is mildly dilated. Aortic Valve The aortic valve is tricuspid. The aorti c valve is mildly thickened. There is no aortic stenosis. There is moderate aorti c regurgitation. Mitral Valve Moderate calcification of the mitral dilip ulus. Mild thickening of the mitral leaflets. There is tethering of the mitr al leaflets. There is no mitral stenosis. There is moderate mitral regurgitation. Tricuspid Valve The tricuspid valve is structurally norm al. There is moderate tricuspid regurgitation. Pulmonic Valve The pulmonic valve appears to be structu rally normal. There is trace pulmonic valve regurgitation. Great Arteries The aortic root is of normal size. No ab normalities are identified. The ascending aorta is mildly dilated. Venous Inferior vena cava is dilated. Inferior vena cava collapse less than 50% with respiration. Pericardium/Pleural The pericardium appears normal. Hemodynamics The peak right ventricular systolic pres sure is 44 mmHg. Ejection Fraction ?2D Measurem ents ? Volumes LV Biplane EF: 32.7 % ? IVSd: 0.93 c m ?EDV Biplane: 215.3 ml ?L VPWd: 0.94 cm ? EDV Biplane Index: 88.1 ? ESV Biplane: 144.9 ml ? ESV Biplane Index: 59.3 Doppler TR max justice: 298.2 cm/sec RVSP(TR): 50.6 mmHg Ao V2 VTI: 31.6 cm Ao valve max: 10.4 mmHg MV E max justice: 71.4 cm/sec MV A max justice: 31.8 cm/sec MV E/A: 2.2 Dimensionless index Aov: 0.68 Procedure Note Antonio Poole MD - 05/28/2022Formattin g of this note might be different from the original. Echocardiogram Report Name: DARREN VALENTINE Study Date: 05/28 12:44 PMBP: 134/74 mmHg Patient Location: : 1945 Height: 183 cm Account: [id number] Age: 76 yrs Weight: 125 kg Gender: Male BSA: 2.4 m2 Ordering Physician: EDGAR ZAPATA Referring Physician: EDGAR ZAPATA Performed By: KASHIF Reason For Study: Congestive heart failu re Exam Location: [facility]. Interpretation Summary Technically limited study. Left ventricle is moderately dilated. Le ft ventricular systolic function is moderately reduced. The left ventricular ejection fraction is 33% by Murguia's biplane. Moderate global hypokinesis. The right ventricle is of normal size. R ight ventricular systolic function is normal. The peak right ventricular systo lic pressure is 44 mmHg, assuming a right atrial pressure of 15 mmHg. Mild biatrial enlargement. The aortic valve is tricuspid. The aorti c valve is mildly thickened. There is no aortic stenosis. There is moderate aorti c regurgitation. Moderate calcification of the mitral dilip ulus. The mildly thickened mitral leaflets have restricted closure. There is probab ly moderate mitral regurgitation. There is probably moderate tricuspid reg urgitation. No comparison study is available. Procedure Complete-[id number]. Suboptimal quality. Left Ventricle Left ventricle is moderately dilated. Le ft ventricular systolic function is moderately reduced. The left ventricular ejection fraction is 33% by Murguia's biplane. Moderate global hypokinesis. Right Ventricle The right ventricle is of normal size. R ight ventricular systolic function is normal. Left Atrium The left atrium is mildly dilated. Right Atrium The right atrium is mildly dilated. Aortic Valve The aortic valve is tricuspid. The aorti c valve is mildly thickened. There is no aortic stenosis. There is moderate aorti c regurgitation. Mitral Valve Moderate calcification of the mitral dilip ulus. Mild thickening of the mitral leaflets. There is tethering of the mitr al leaflets. There is no mitral stenosis. There is moderate mitral regurgitation. Tricuspid Valve The tricuspid valve is structurally norm al. There is moderate tricuspid regurgitation. Pulmonic Valve The pulmonic valve appears to be structu rally normal. There is trace pulmonic valve regurgitation. Great Arteries The aortic root is of normal size. No ab normalities are identified. The ascending aorta is mildly dilated. Venous Inferior vena cava is dilated. Inferior vena cava collapse less than 50% with respiration. Pericardium/Pleural The pericardium appears normal. Hemodynamics The peak right ventricular systolic pres sure is 44 mmHg. Ejection Fraction 2D Measurements Volume s LV Biplane EF: 32.7 % IVSd: 0.93 cm EDV Biplane: 215.3 ml LVPWd: 0.94 cm EDV Biplane Index: 88.1 ESV Biplane: 144.9 ml ESV Biplane Index: 59.3 Doppler TR max justice: 298.2 cm/sec RVSP(TR): 50.6 mmHg Ao V2 VTI: 31.6 cm Ao valve max: 10.4 mmHg MV E max jutsice: 71.4 cm/sec MV A max justice: 31.8 cm/sec MV E/A: 2.2 Dimensionless index Aov: 0.68 Edgar Zapata MD ECHO ORDERABLES Performing Organization Address City/State/ZIP Code Phon e Number HEARTLAB SYSTEM (ABNORMAL) Bacterial Identification (03/21/2022 10:19 AM EDT) Component Value Ref Test Analysis Performed At [facility] gist Range Method Time Signature Bacterial Cutibacterium [facility] [place]EL[place] (Propionibacteri [facility] acnes) HOSPITAL isolated (A) LABORATORY Organism Cutibacterium [facility] [place]HAELA (Propionibacteri [facility] acnes) (A) HOSPITAL LABORATORY Specimen Anatomical Collection Method Collection Time Receive d Time (Source) Location / / Volume Laterality Isolate TOE STRUCTURE / 03/21/2022 10:19 06 22 2:04 Unknown AM EDT PM EDT Comment: [place] 22 1127, RT GREAT TOE Resulting Agency Comment Spec In Lab Organism Antibiotic Method Susceptibility Cutibacterium acnes Clindamycin MINIMUM INHIBITORY 0.064: Se nsitive (propionibacterium acnes) CONCENTRATION Cutibacterium acnes Meropenem MINIMUM INHIBITORY Sensitive (propionibacterium acnes) CONCENTRATION Cutibacterium acnes Moxifloxacin MINIMUM INHIBITORY Sensitive (propionibacterium acnes) CONCENTRATION Cutibacterium acnes Penicillin MINIMUM INHIBITORY Sensitive (propionibacterium acnes) CONCENTRATION Cutibacterium acnes Vancomycin MINIMUM INHIBITORY 0.75 (propionibacterium acnes) CONCENTRATION Zoie Martinez DPM MICROBIOLOGY - GENERAL ORDER KAMERON Performing Organization Address City/State/ZIP Code [place] [address] from Last 3 Months Insurance Payer Benefit Plan / Subscriber ID Effective Dates Phone Addre ss Type Group MEDICARE MEDICARE PART A [id number] 2008-Prese [phone] [id number] [place] [address] [employer]AC[employer] OPTUM [place] OPTUM [id number] 2021-Presen [phone] [address] [address] Advance Directives Documents on File Type Date Recorded Patient Phys Therapist Explanati on Advance Directives and Living 09/16/2017 10:04 AM 06/04/15 Will Latest Code Status on File Code Status Date Activated Date Inactivated Comments Full Code 09/10/2017 8:57 PM 09/15/2017 4:16 PM Does patient have capacity to make decision: Yes Full Code 09/10/2017 8:07 PM 09/10/2017 8:57 PM Does patient have capacity to make decision: Yes Full Code 05/03/2012 6:12 PM 05/05/2012 6:45 PM Order Status: Initial Order Does patient have decision making capacity? Yes, Order is based on Patients wishes. Care Teams Machine Tool Technician Instructor Relationship Specialty Start Date End Date Edil Schmidt APRN PCP - General 05/06/12 EMERGENCY DEPT [address] [place] [address] [place] [address]
--- OUTSIDE RECORDS SUMMARY | 2022-06-15 00:20 | XMS_ITS | Encounter Summary ---
:1945 Author Organization [facility] Address [facility] [address] [place] [address] Care Team Providers Name Role Phone Edil Schmidt APRN Primary Care Provider Reason for Visit Reason Onset Date Comments Other 09/25/2017 has not received med s Encounter Details Date Type Department Care Team Description 09/25/2017 Telephone Cardiology at [facility] Mariana Bruno MD Other (has not received [facility] med s) [place] [address] [place] [address] [phone] (Wo rk) Social History Tobacco Use Types Packs/Day Years Used Date Former Smoker Cigarettes Quit: 10/26/18 92 Smokeless Tobacco: Never Used Alcohol Use Standard Drinks/Week Comments No 0 (1 standard drink = 0.6 oz pure alcoho l) Sex Assigned at Date Recorded Not on file documented as of this encounter Miscellaneous Notes Telephone Encounter - Rogelio Mo - 09/25/2017 10:25 AM EST Patient's pharmacy didn't have the prescription for his aldactone nor his carvedilol. documented in this encounter Plan of Treatment Not on filedocumented as of this encounter Visit Diagnoses Not on filedocumented in this encounter Care Teams Sand Conditioner Machine Relationship Specialty Start Date End Date Edil Schmidt APRN PCP - General 05/06/12 EMERGENCY DEPT [address] [place] [address] [place] [address] documented as of this encounter
--- OUTSIDE RECORDS SUMMARY | 2022-06-15 00:20 | XMS_ITS | Encounter Summary ---
:1945 Author Organization [facility] [place] [address] Care Team Providers Name Role Phone Edil Schmidt APRN Primary Care Provider Encounter Details Date Type Department Care Team Description 11/02/2018 Interpretation Only Cardiology at [facility] Synco peUri Jr., MD unspecified syncope [address] [facility] [address] [facility] [place] [address] [phone] Social History Tobacco Use Types Packs/Day Years Used Date Former Smoker Cigarettes Quit: 10/26/18 89 Smokeless Tobacco: Never Used Alcohol Use Standard Drinks/Week Comments No 0 (1 standard drink = 0.6 oz pure alcoho l) Sex Assigned at Date Recorded Not on file documented as of this encounter Plan of Treatment Not on filedocumented as of this encounter Procedures Procedure Name Priority Date/Time Associated Diagnosis Comme nts ECG SCAN 11/16/2018 12:00 AM Results for this EST procedure are i n the results section . documented in this encounter Results SCAN DOC: ECG (11/16/2018 12:00 AM EST) Narrative 11/16/2018 12:00 AM EST This result has an attachment that is no t available. Ordered by an unspecified provider. Scanning Provider MEDIA MGR SCAN EXT ORDR/RSLT documented in this encounter Visit Diagnoses Diagnosis Syncope, unspecified syncope type documented in this encounter Care Teams Editorial Director Relationship Specialty Start Date End Date Edil Schmidt, AUDIT TECH PCP - General 05/06/12 EMERGENCY DEPT [address] [place] [address] [place] [address] documented as of this encounter
--- OUTSIDE RECORDS SUMMARY | 2022-06-15 00:20 | XMS_ITS | Encounter Summary ---
:1945 Author Organization [facility] [place] [address] Care Team Providers Name Role Phone Edil Schmidt APRN Primary Care Provider Reason for Referral Diagnostic Test (Routine) - Closed Specialty Diagnoses / Procedures Referred By Contact Refer red To Contact Cardiology Diagnoses Congestive heart failure, unspecified HF chronicity, unspecified heart failure type Edgar Zapata MD [facility] Non-Inv Card Lab Procedures Mobile Echo [address] [facility] [id number] [place] [phone] Fax: Referral ID Status Reason Start Date Expiration Date Visits V isits Requested Authorized [id number] Closed Specialty 05/28/2022 05/28/2023 1 1 Service Requested Reason for Visit Diagnostic Test (Routine) - Closed Specialty Diagnoses / Procedures Referred By Contact Refer red To Contact Cardiology Diagnoses Congestive heart failure, unspecified HF chronicity, unspecified heart failure type Edgar Zapata MD [facility] Non-Inv Card Lab Procedures Mobile Echo [address] [facility] [id number] [place] [phone] Fax: Referral ID Status Reason Start Date Expiration Date Visits V isits Requested Authorized [id number] Closed Specialty 05/28/2022 05/28/2023 1 1 Service Requested Encounter Details Date Type Department Care Team Description 05/28/2022 Hospital Encounter Mobile Edgar Zapata ve heart Echocardiography MD Joey failure, unspecified [facility] [address] HF chronicity, Drive [place] unspecified heart [place], [place], [place] failure type [id number] [phone] Social History Tobacco Use Types Packs/Day Years Used Date Former Smoker Cigarettes Quit: 10/26/18 92 Smokeless Tobacco: Never Used Alcohol Use Standard Drinks/Week Comments No 0 (1 standard drink = 0.6 oz pure alcoho l) Sex Assigned at Date Recorded Not on file documented as of this encounter Medications at Time of Discharge Medication Sig Dispensed Refills Start Date End Date carvedilol (COREG) 6.25 mg Take 1 tablet by 60 tablet 0 03/2017 TabletIndications: mouth 2 times daily Congestive heart failure, (with meals). unspecified congestive heart failure chronicity, unspecified congestive heart failure type spironolactone (ALDACTONE) Take 1 tablet by 30 tablet 0 03/2017 25 mg TabletIndications: mouth daily. Congestive heart failure, unspecified congestive heart failure chronicity, unspecified congestive heart failure type, Heart failure, unspecified heart failure chronicity, unspecified heart failure type, Ischemic cardiomyopathy clopidogrel (PLAVIX) 75 mg Take 1 tablet by 90 tablet 3 Tablet mouth daily. torsemide (DEMADEX) 20 mg Take 2 tablets by 60 tablet 3 Tablet mouth 2 times daily. tiotropium (SPIRIVA) 18 Inhale 18 mcg into 0 mcg Capsule, w/Inhalation the lungs daily. Device oxyCODONE-acetaminophen Take 1 tablet by 0 (PERCOCET) 5-325 mg Tablet mouth every 4 hours as needed for Pain. isosorbide mononitrate Take 120 mg by mouth 0 (IMDUR) 120 mg Tablet daily. Sustained Release 24 hr glipiZIDE (GLUCOTROL) 5 mg Take 2.5 mg by mouth 0 Tablet 2 times daily (before meals). DULoxetine (CYMBALTA) 60 Take 60 mg by mouth 2 0 mg Capsule, Delayed times daily. Release(E.C.) docusate sodium (COLACE) Take 100 mg by mouth 0 100 mg Capsule 3 times daily as needed for Constipation. budesonide-formoterol Inhale 2 puffs into 0 (SYMBICORT) 160-4.5 the lungs 2 times mcg/actuation HFA Aerosol daily. Inhaler atorvastatin (LIPITOR) 80 Take 80 mg by mouth 0 mg Tablet daily. albuterol 90 mcg/actuation Inhale 2 puffs into 0 HFA Aerosol Inhaler the lungs every 4 hours as needed for Wheezing or Shortness of Breath. Use with spacer buPROPion (WELLBUTRIN SR) Take 100 mg by mouth 0 100 mg Tablet Sustained every morning. Release 12 hr terazosin (HYTRIN) 2 mg Take 4 mg by mouth 0 Capsule nightly. allopurinol (ZYLOPRIM) 100 Take 100 mg by mouth 0 mg Tablet daily. nitroGLYcerin Place 1 spray under 0 (NITROLINGUAL) 400 the tongue every 5 mcg/spray [place], minutes as needed for Non-Aerosol Chest pain. traZODone (DESYREL) 50 mg Take 100 mg by mouth 0 tablet nightly as needed. losartan (COZAAR) 100 mg Take 50 mg by mouth 0 tablet daily. FELODIPINE ORAL Take 5 mg by mouth 0 every morning. aspirin 81 mg EC tablet Take 81 mg by mouth 0 daily. documented as of this encounter Plan of Treatment Not on filedocumented as of this encounter Procedures Procedure Name Priority Date/Time Associated Comments Diagnosis ECHOCARDIOGRAM COMPLETE Routine 05/28/2022 3:08 Congestive hea rt Results for this PM EDT failure, procedure are i n unspecified HF the results chronicity, section. unspecified heart failure type documented in this encounter Results ECHOCARDIOGRAM COMPLETE (05/28/2022 3:08 PM EDT) P athologist Signature EF 33 [facility] Specimen (Source) Anatomical Collection Method Collection Time Re ceived Time Location / / Volume Laterality 05/28/2022 12:44 PM EDT Narrative [facility] - 05/28/2022 3:34 PM EDT ? Echocardiogram Report Name: DARREN VALENTINE ?Study Date: 05/28/2022 12:44 PMBP: 134/74 mmHg ? Patient Location: 4A : 1945 ? Height: 183 cm ? Account: [id number] Age: 76 yrs ? Weight: 125 kg Gender: Male ?BSA: 2.4 m2 Ordering Physician: EDGAR ZAPATA Referring Physician: EDGAR ZAPATA Performed By: [place] Reason For Study: Congestive heart failu re Exam Location: [facility]. Interpretation Summary Technically limited study. Left [...] urgitation. No comparison study is available. Procedure [id number]. Suboptimal quality. Left Ventricle Left ventricle is [...] Location: : 1945 Height: 183 cm Account: [id number] Age: 76 yrs Weight: 125 kg Gender: Male BSA: 2.4 m2 Ordering Physician: EDGAR ZAPATA Referring Physician: EDGAR ZAPATA Performed By: KASHIF Reason For Study: Congestive heart failu re Exam Location: [facility]. Interpretation Summary Technically limited study. Left [...] urgitation. No comparison study is available. Procedure [id number]. Suboptimal quality. Left Ventricle Left ventricle is [...] City/State/ZIP Code Phon e Number [facility] documented in this encounter Visit Diagnoses Diagnosis Congestive heart failure, unspecified HF chronicity, unspecified heart failure type documented in this encounter Care Teams Payroll Tax Specialist Relationship Specialty Start Date End Date Edil Schmidt APRN PCP - General 05/06/12 EMERGENCY DEPT [address] [place] [address] [place] [address] documented as of this encounter
--- OUTSIDE RECORDS SUMMARY | 2022-06-15 00:20 | XMS_ITS | Encounter Summary ---
:1945 Author Organization [facility] [place] [address] Care Team Providers Name Role Phone Edil Schmidt APRN Primary Care Provider Encounter Details Date Type Department Care Team Description 03/21/2022 Orders Only Lab [place] [facility] Gurwinder Martinez, [facility] [address] [place] [address] [place] [id number] (Wo rk) Social History Tobacco Use Types [...] Procedure Name Priority Date/Time Associated Comments Diagnosis BACTERIAL Routine 03/21/2022 10:19 Results for this IDENTIFICATION AM EDT procedure are in the results section. documented in this encounter Results (ABNORMAL) Bacterial Identification (03/21/2022 10:19 AM EDT) Component Value Ref Test Analysis Performed At [facility] Range Method Time Signature Bacterial Cutibacterium GHADA Identification acnes MICHAELA (Propionibacteri [facility] acnes) [facility] isolated (A) LABORATORY Organism Cutibacterium GHADA acnes MICHAELA (Propionibacteri [facility] acnes) (A) HOSPITAL LABORATORY Specimen Anatomical Collection Method Collection Time Receive d Time (Source) Location / / Volume Laterality Isolate TOE / 03/21/2022 10:19 03/31/20 22 2:04 Unknown AM EDT PM EDT Comment: [place] 22 1127, RT GREAT TOE Resulting Agency [...] Organization Address City/State/[place] [address] documented in this encounter Visit Diagnoses Not on filedocumented in this encounter Care Teams Dental Laboratory Manager Relationship Specialty Start Date End Date Edil Schmidt APRN PCP - General 05/06/12 EMERGENCY DEPT [address] [place] [address] [place] [address] documented as of this encounter
--- OUTSIDE RECORDS SUMMARY | 2022-06-15 00:20 | XMS_ITS | Encounter Summary ---
:1945 [place] [address] Care Team Providers Name Role Phone Edil Schmidt APRN Primary Care Provider Reason for Visit Reason Onset Date Comments Medication Refill 09/28/2017 Encounter Details Date Type Department Care Team Description 09/28/2017 [place] [facility] [place]iana Bruno MD Medication Refill [facility] [place] [address] [place], [place] [id number] [phone] (Wo rk) Social History Tobacco Use Types Packs/Day Years Used Date Former Smoker Cigarettes Quit: 10/26/18 92 Smokeless Tobacco: Never Used Alcohol Use Standard Drinks/Week Comments No 0 (1 standard drink = 0.6 oz pure alcoho l) Sex Assigned at Date Recorded Not on file documented as of this encounter Miscellaneous Notes Telephone Encounter - Joceline Menjivar RN - 09/28/2017 5:25 PM EST Incoming call from patient who was [place] [facility] [place] and Discharged on 09/15/17. documented in this encounter Plan of Treatment Not on filedocumented as of this encounter Visit Diagnoses Diagnosis Ischemic cardiomyopathy - Primary Other specified forms of chronic ischemi c heart disease Congestive heart failure, unspecified co ngestive heart failure chronicity, unspecified congestive heart failure typ e ASCVD (arteriosclerotic cardiovascular d isease) Unspecified cardiovascular disease Heart failure, unspecified heart failure chronicity, unspecified heart failure type Hypertension, unspecified type documented in this encounter Care Teams Corn Lab Technician Relationship Specialty Start Date End Date Edil Schmidt, JIG BUILDER PCP - General 05/06/12 EMERGENCY DEPT [address] [place] [address] [place] [address] documented as of this encounter
--- OUTSIDE RECORDS SUMMARY | 2022-06-15 00:21 | XMS_ITS | Encounter Summary ---
:1945 Author Organization [facility] [place] [address] Care Team Providers Name Role Phone Edil Schmidt APRN Primary Care Provider Reason for Visit Auth/Cert Specialty Diagnoses / Procedures Referred By Contact Refer red To Contact Diagnoses Heart failure CHF/new cardiomyopathy/ abnormal Lexiscan stress Procedures TAMMY IPI Referral ID Status Reason Start Date Expiration Date Visits Requ ested Visits Authorized [id number] 1 1 Encounter Details Date Type Department Care Team Description 09/10/2017 - [facility] [address] [facility] Duke Olivier MD [facility] [place] [address] Heart failure, unspecified heart failure chronicity, unspecified heart failure type; 09/15/2017 Encounter [facility] Karyn Soliz MD [facility] [place] [address] ASCVD (arteriosclerotic cardiovascular d isease); Hospital NSTEMI (non-ST elevated myoc ardial infarction) [place] [address] Social History Tobacco Use Types Packs/Day Years Used Date Former Smoker Cigarettes Quit: 10/26/18 92 Smokeless Tobacco: Never Used Tobacco Cessation: Counseling Given: No Alcohol Use Standard Drinks/Week Comments No 0 (1 standard drink = 0.6 oz pure alcoho l) Sex Assigned at Date Recorded Not on file documented as of this encounter Last Filed Vital Signs Vital Sign Reading [...] Mass Index 42.77 09/10/2017 11:25 PM EST documented in this encounter Discharge Summaries Margret Sullivan - 09/15/2017 10:47 AM EST Cardiology - Discharge Summary Patient Name: Darren Valentine Patient Age: 72 y.o. Birthdate: 1945 Admit date: 09/10/2017 Discharge date and time: 09/15/2017 Attending Physician: Karyn Soliz MD Follow-up Recommendations for Providers: -- Please obtain a BMP within 1 week of hospital discharge -- Please ensure patient is asymptomatic since starting torsemide for fluid maintenance Discharge Diagnoses (Hospital Problems) and Secondary Diagnoses (Chronic Problems): Active Hospital Problems Diagnosis ??? Heart failure Resolved Hospital Problems Diagnosis Date Resolved No resolved problems to display. Operations/Major Procedures: Cardiac Catheterization (see full report below) Patient Status at Catheterization: The patient presented with: non-STEMI (w/i 7 days). [place] [employer] angina class was IV. This patient was on beta blockers and calcium humberto blockers prior to the procedure. No stress or imaging studies were performed prior to this procedure ? Technique: A 6Fr sheath was inserted in the right femoral artery utilizing the Seldinger technique. A 5Fr sheath was inserted in the right femoral vein utilizing the Seldinger technique. The mammary artery was injected utilizing a 5Fr SARA catheter. Right heart catheterization was performed utilizing a 5Fr Balloon wedge catheter. Aortic Root was performed with a 5Fr SARA catheter. A 5Fr JL 4 catheter was used to inject the left coronary artery. The right coronary artery was injected utilizing a 5Fr JR 4 catheter. A 5Fr SARA catheter was used to inject the bypass graft. Bypass graft stent insertion was performed and the equipment utilized will be described in the intervention summary section. 3,000 units of heparin were administered. Intracoronary nitroglycerin was given during this case. A total of 200cc of Omnipaque were opened, 130cc of Omnipaque were administered and 70cc of Omnipaque were wasted. Radiation: Fluoro time was 23.2 minutes, dose area product was 154,993 mGYcm2 and air kerma was 1,814 mGY. ? The patient received the following medications prior to and during the procedure: Aspirin (any), Clopidogrel and Unfractionated Heparin (any). ? Hemodynamics: Right Heart Pressures Hemodynamics: Syst Diast EDP a v m RA 12 10 8 RV 39 11 PA 45 20 28 PCW 22 26 20 ? Hemodynamic Profile: Profile 1 CO 5.89 CI 2.61 TSR 1,087 SVR 978 TPR 380 PVR 109 Technique Estimated Jules ? Left Heart Pressures Resting: Syst Diast EDP a v m Ao 128 55 80 ? Post Contrast: Syst Diast EDP a v m Ao 122 47 75 LV 121 22 ? Oximetry: Location %Sat Location %Sat Main Pulmonary Artery 59.0 Peripheral Arterial 89.0 ? Coronary Angiography: Dominance: Right ? Left Main There was a 90% stenosis of the distal segment of the left main artery. ? Left Anterior Descending There was a single discrete total occlusion of the proximal segment of the left anterior descending artery (LAD). ? Left Circumflex There was an 80% single discrete stenosis of the proximal segment of the left circumflex artery (LCX). ? Right Coronary Artery There was mild diffuse disease of the entire vessel segment of the right coronary artery (RCA). The RCA was moderate in size. ? There was mild diffuse disease of the entire vessel segment of the right posterior descending branch (RPDA) of the RCA. The RPDA was moderate in size. ? Ramus The entire vessel segment of the ramus was noted. ? Bypass Grafts: There was a total of three bypass grafts evaluated during this procedure. ? 1. Left internal mammary artery graft to the LAD There was a left internal mammary artery graft with a single anastomosis to the left anterior descending artery (LAD). ? There was no evidence of obstruction in this graft. Distal flow was normal. ? 2. Saphenous vein graft to the ramus There was a saphenous vein graft with a single anastomosis to the ramus. ? There was a severe diffuse disease of the proximal portion of the segment of this graft between the origin of this graft and the ramus. ? There is a diffuse 80% lesion in the proximal portion of the graft. ? 3. Saphenous vein graft to the OM1 There was a saphenous vein graft with a single anastomosis to the first obtuse marginal branch (OM1) of the LCX. ? There was no evidence of obstruction in this graft. Distal flow was normal. ? Indication for Intervention: Coronary intervention was indicated for primary therapy for an acute myocardial infarction. Left Ventricular Ejection fraction was not assessed. The priority for the procedure was Urgent. The NCDR indication for the procedure was PCI for high risk Non-STEMI or unstable angina. Right Heart catheterization was initiated for Congestive heart failure (428.0). ? Intervention Summary: Saphenous vein graft to the ramus Between the origin of this graft and the ramus - Proximal Severe Diffuse Stent insertion was performed on the severe diffuse stenosis in the proximal portion of the segment of this graft between the origin of this graft and the ramus. This was a de chery lesion. According to the ACC/AHA classification system, this lesion was a type C high risk lesion. Primary prevention of restenosis was the indication for stent insertion. This was the culprit lesion. Vessel flow pre intervention was JENNIFER 3. ? Stent insertion was accomplished through a 6 Fr. JR 4 guide. The lesion was predilated with a 2.50mm EUPHORA 15 MM balloon with a maximum inflation pressure of 12 atmospheres. A premounted 3.00 x 38 mm Resolute NISA (NAOMI) was deployed with a maximum inflation pressure of 14 atmospheres. Following stent deployment, the lesion was dilated using a 3.50mm NC EUPHORA 20 MM balloon with a maximum inflation pressure of 16 atmospheres. ? The final outcome was defined as successful. There was no residual stenosis following this intervention. The final JENNIFER flow was 3. ? Vascular Access: Vascular Access Angiogram: A selective angiogram at the right femoral artery revealed mild diffuse disease. ? Vascular Access Management: A Perclose was deployed at the right femoral artery access site. This device was successful. ? Manual Compression of the right femoral vein access site was performed. ? Dual Antiplatelet (DAPT) Recommendations: Drug eluting stent (NAOMI) inserted. ? P2Y12 Loading dose administered prior to arrival in the lab specialist. ? Recommend continuing clopidogrel 75 mg PO daily for 12 months. Recommend continuing aspirin 81 mg unless intolerant. ? The DAPT score is 5. The DAPT score calculates net clinical benefit of prolonged dual antiplatelet therapy following percutaneous coronary intervention. A DAPT Score of equal or greater than 2 suggests an increased risk of late stent thrombosis and MACCE. If the DAPT score is equal or greater than 2 and the patient tolerates the recommended duration of DAPT without bleeding or side effects, consider extending the DAPT to 30 months post procedure. ? 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 Complications/Events: The patient had no complications during these procedures. ? Comments: Pt presented with angina and positive biomarkers. Coronary and graft angiography showed severe left sided disease with patent MARTINEZ to LAD and SVG to OM1. There was severe disease in the SVG to ramus which was treated with a single NAOMI PCI with good result and normal flow. Right sided filling pressures were consistent with elevated PCWP with optimized cardiac output. Recommend monitoring closely for contrast induced toxicity given baseline renal insufficiency and contrast exposure. Echo 09/11/2017: SUMMARY: 1. The left ventricle is moderately dilated. Mild concentric left ventricular hypertrophy is observed. Global left ventricular systolic function is moderately reduced. The quantitative left ventricular ejection fraction by biplane Murguia's method is 35%. 2. The left atrium is severely dilated. The right atrium is moderately dilated. 3. The right ventricle is mildly dilated. Right ventricular global systolic function is moderately reduced. 4. The aortic valve leaflets are mildly thickened. Mild (1+/4+) aortic valve regurgitation is present. 5. There is mild (1+/4+) mitral regurgitation present. 6. There is trace tricuspid regurgitation present. 7. The pericardium appears normal and there is no evidence of a pericardial effusion. 8. Since prior study in 2011, LV and RV function are now worse. History of Presentation: Darren Valentine is a 72 y.o. male with HTN, ASCVD sp CABG in 2007, chronic heart failure, COPD and DM who presented initially to [facility] with chief complaint of shortness of breath and found to have decompensated heart failure. ?? Six days ago the patient started experiencing shortness of breath. It became progressive such that he was unable to lie flat in bed as he is normally able to do. He noted continued progression and fivedays ago he was dizzy and markedly dyspneic just with walking. The next day he had dyspnea just withvacuuming his rug. This prompted him to seek medical care and he called an ambulance and was admitted to [facility]. At baseline required only nightly 2.5L o2 and now has needed daytime oxygen. ?? He endorses mild central chest pain 6 days ago that abated with nitro spray. Has stable angina at baseline that manifests as jaw pain, always responsive to nitro spray. Denies fevers, chills, worseningwheezing above rare brief baseline episodes, changes in bowel habits, difficulty with urination, changes in vision or hearing. Endorses easy bruising on arms. He has had exertional dyspnea in the past but never an episode like this in the past. ? He was admitted on 09/07 at [facility] and treated initially for ACS given elevated trop in context of dyspnea (trop peaked at 0.15). A stress test was notable for a fixed defect only. He was being prepared for discharge when this morning he tried going to bathroom this morning at [facility] and was markedly dyspneic. For this reason he and his providers at [facility] Other notable labs Cr 1.5, WBC 12, probnp 3500. ?? Presently breathing is better as long as he doesn't exert himself. Notable cardiac history: --CABG in 2007, MARTINEZ to LAD, SVG to OM, SVG to ramus --BMS to 90% stenosis of LAD and BMS to LCX in 2001 after having anginal symptoms --Recurrent pain with cath in 08/2002. Showed mild restenosis in LCX stent, severe restenosis in LAD stent --05/05/2008 Last Cardiac Cath showed EF 45%, 20% stenosis of LAD --LAD stent PCI with cutting balloon/brachy therapy, August 2002. --Recurrent pain, January 2003, recatheterized at an outside facility with LAD stenosis distal to first stent, additional stent placed. --??Heart catheterization, [facility], May 06, 2003: ?20% distal LM, mild diffuse proximal LAD; normalLCX and RCA; EF 45%. 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 Hospital Course: Mr. Valentine was admitted for acute on chronic decompensated heart failure with suspected NSTEMI dueto a troponin elevation on initial blood tests. He was started on IV lasix bolus 80 mg intermittently along with appropriate ACS medical therapy. The decision was made to first off-load his heart with diuresis with subsequent R/L heart cath. He had great response to the IV lasix, allowing him to maintain net negative 1- 2.5 L every day. Looking forward towards post- hospital disposition, we decided toswitch him to PO torsemide, as he states that the PO lasix isn't as robust for diuresis anymore (he relies on intermittent metolazone for diuresis at home). Continued diuresis with torsemide allowed him to achieve his dry weight again (265 lbs). We decided to decrease the dose from 60 mg BID to 40 mg BID due to an elevation in creatinine. After dose adjustment, his creatinine came down; he maintainednet negative goal for his fluid status, upon which a cardiac cath was performed. An 80% occlusion ofthe SVG to his ramus was found, which was stented. LVEDP was 22 mmHg, suggestive of a need for furthe r diuresis to off-load the heart. Right heart cath showed increased right sided pressures, consistent with pulmonary hypertension. However, this can be explained by his acute on chronic heart failure. He improved incrementally throughout his hospitalization. His shortness of breath is at a minimum ondischarge and he denied any anginal symptoms. Important Studies and Lab Data: Recent Labs 09/15/17 0531 09/14/17 0402 09/13/17 0120 09/12/17 0602 09/10/17 2110 WBC 10.6* 10.8* 11.2* 9.8* 13.1* HGB 12.0* 12.5* 11.8* 12.6* 12.2* PLATELET 201 212 181 187 184 Recent Labs 09/15/17 0531 09/14/17 0402 09/13/17 0120 09/12/17 0602 09/11/17 0505 NA 142 140 137 139 140 K 3.7 3.9 3.7 3.8 4.1 CL 102 99 98 97* 99 CO2 26 25 25 26 Not Perf BUN 38* 45* 45* 39* 33* CREATININE 1.63* 1.68* 1.57* 1.49 1.52* GLUCOSE 86 112 114 125 110 Recent Labs 09/15/17 0531 09/14/17 0402 09/13/17 0120 CALCIUM 8.7 8.9 8.8 MAGNESIUM 0.88 0.97 0.94 Recent Labs 09/14/17 2034 09/12/17 1334 09/12/17 0602 CK 88 193 200 TROPONINT 0.03* 0.02* 0.02* Recent Labs 09/10/17 2110 AST 21 ALT 26 ALKPHOS 84 BILITOT 0.5 No results for input(s): INR in the last 168 hours. Lab Results Component Value Date CHLPL 155 09/10/2017 HDL 43 09/10/2017 CHOLHDL 3.6 09/10/2017 TRIG 98 05/04/2012 TRIG 98 05/04/2012 LDLCHOL 72 05/04/2012 LDLDIRECT 99 09/10/2017 Recent Labs 09/10/17 2110 HA1C 7.2* Discharge Conditions/Prognosis: Stable Discharge to: Home Discharge Medications: Your Medications New Medications Dose Details clopidogrel 75 mg Tab Commonly known as: PLAVIX Take 1 tablet by mouth daily. Start taking on: 09/16/2017 75 mg Quantity: 90 tablet Refills: 3 torsemide 20 mg Tab Commonly known as: DEMADEX Take 2 tablets by mouth 2 times daily. 40 mg Quantity: 60 tablet Refills: 3 Continued medications, unchanged Dose Details albuterol 90 mcg/actuation Hfaa Inhale 2 puffs into the lungs every 4 hours as needed for Wheezing or Shortness of Breath. Use with spacer 2 puff Refills: 0 allopurinol 100 mg Tab Commonly known as: ZYLOPRIM Take 100 mg by mouth daily. 100 mg Refills: 0 aspirin 81 mg Tbec Take 81 mg by mouth daily. 81 mg Refills: 0 atorvastatin 80 mg Tab Commonly known as: LIPITOR Take 80 mg by mouth daily. 80 mg Refills: 0 budesonide-formoterol 160-4.5 mcg/actuation Hfaa Commonly known as: SYMBICORT Inhale 2 puffs into the lungs 2 times daily. 2 puff Refills: 0 buPROPion 100 mg Tb12 Commonly known as: WELLBUTRIN SR Take 100 mg by mouth every morning. 100 mg Refills: 0 carvedilol 6.25 mg Tab Commonly known as: COREG Take 6.25 mg by mouth 2 times daily (with meals). 6.25 mg Refills: 0 docusate sodium 100 mg Cap Commonly known as: COLACE Take 100 mg by mouth 3 times daily as needed for Constipation. 100 mg Refills: 0 DULoxetine 60 mg Cpdr Commonly known as: CYMBALTA Take 60 mg by mouth 2 times daily. 60 mg Refills: 0 FELODIPINE ORAL Take 5 mg by mouth every morning. 5 mg Refills: 0 glipiZIDE 5 mg Tab Commonly known as: GLUCOTROL Take 2.5 mg by mouth 2 times daily (before meals). 2.5 mg Refills: 0 isosorbide mononitrate 120 mg Tablet sr Commonly known as: IMDUR Take 120 mg by mouth daily. 120 mg Refills: 0 losartan 100 mg Tab Commonly known as: COZAAR Take 50 mg by mouth daily. 50 mg Refills: 0 nitroGLYcerin 400 mcg/spray [place] Commonly known as: NITROLINGUAL Place 1 spray under the tongue every 5 minutes as needed for Chest pain. 1 spray Refills: 0 oxyCODONE-acetaminophen 5-325 mg Tab Commonly known as: PERCOCET Take 1 tablet by mouth every 4 hours as needed for Pain. 1 tablet Refills: 0 spironolactone 25 mg Tab Commonly known as: ALDACTONE Take 25 mg by mouth daily. 25 mg Refills: 0 terazosin 2 mg Cap Commonly known as: HYTRIN Take 4 mg by mouth nightly. 4 mg Refills: 0 tiotropium 18 mcg Cpdv Commonly known as: SPIRIVA Inhale 18 mcg into the lungs daily. 18 mcg Refills: 0 traZODone 50 mg Tab Commonly known as: DESYREL Take 100 mg by mouth nightly as needed. 100 mg Refills: 0 STOPPED Medications furosemide 80 mg Tab Commonly known as: LASIX insulin glargine Soln Updated Allergies/ADRs: Allergies Allergen Reactions ??? Penicillins Hives Anaphylaxis ??? Ambien [Zolpidem] Other (See Comments) confusion ??? Fentanyl Other (See Comments) Confusion ??? Lipitor [Atorvastatin] Other (See Comments) Leg weakness Patient Instructions Instructions on Discharge to Home Why you were hospitalized - Call your doctor or seek medical attention if you develop the following - chest pain, shortness of breath, fever, cough, weakness in an arm or leg Activity level - no restrictions Diet - no change in previous diet Driving - as before hospitalization Shower/Bath - permitted Wound Care - none Home Oxygen therapy - Changes in Your Medications: New Medications: Medication dose changes: Stop these medications: Follow-up: No future appointments. 1pm 10/05 Keyonna Bland At [facility] cardi[facility] Your Inpatient Doctor: Karyn Soliz MD Your Primary Care Provider: Edil Schmidt, LINING FINISHER [phone] For questions regarding this document or issues relating to this hospitalization on the Medical Service, please contact your inpatient physician through the [facility] Infrastructure Director . Issues after hours and on weekends will be handled by the Hospitalist staff on-call. For questions regarding this document or issues relating to this hospitalization on the Medical Service, please contact your inpatient physician through the [facility] Infrastructure Director . Issues after hours and on weekends will be handled by the Demurrage Clerk staff on-call. Signed: Margret Sullivan MD documented in this encounter Discharge Instructions Patient InstructionsLeonardo Dodd MD - 09/15/2017 8:49 AM EST Instructions on Discharge to Home Why you were hospitalized - Call your doctor or seek medical attention if you develop the following - chest pain, shortness of breath, fever, cough, weakness in an arm or leg Activity level - no restrictions Diet - no change in previous diet Driving - as before hospitalization Shower/Bath - permitted Wound Care - none Home Oxygen therapy - Changes in Your Medications: New Medications: Medication dose changes: Stop these medications: Follow-up: No future appointments. 1pm 10/05 Keyonna Bland At [facility] cardi[facility] Your Inpatient Doctor: Karyn Soliz MD Your Primary Care Provider: Edil Schmidt, LINING FINISHER [phone] For questions regarding this document or issues relating to this hospitalization on the Medical Service, please contact your inpatient physician through the [facility] Infrastructure Director . Issues after hours and on weekends will be handled by the Hospitalist staff on-call. documented in this encounter Medications at Time of Discharge Medication Sig Dispensed Refills Start Date End Date clopidogrel (PLAVIX) 75 Take 1 tablet by 90 tablet 3 2016 mg Tablet mouth daily. torsemide (DEMADEX) 20 mg Take 2 tablets by 60 tablet 3 Tablet mouth 2 times daily. tiotropium (SPIRIVA) 18 Inhale 18 mcg into 0 mcg Capsule, w/Inhalation the lungs daily. Device oxyCODONE-acetaminophen Take 1 tablet by 0 (PERCOCET) 5-325 mg mouth every 4 hours Tablet as needed for Pain. isosorbide mononitrate Take 120 mg by mouth 0 (IMDUR) 120 mg Tablet daily. Sustained Release 24 hr glipiZIDE (GLUCOTROL) 5 Take 2.5 mg by mouth 0 mg Tablet 2 times daily (before meals). DULoxetine (CYMBALTA) 60 Take 60 mg by mouth 0 mg Capsule, Delayed 2 times daily. Release(E.C.) docusate sodium (COLACE) Take 100 mg by mouth 0 100 mg Capsule 3 times daily as needed for Constipation. budesonide-formoterol Inhale 2 puffs into 0 (SYMBICORT) 160-4.5 the lungs 2 times mcg/actuation HFA Aerosol daily. Inhaler atorvastatin (LIPITOR) 80 Take 80 mg by mouth 0 mg Tablet daily. albuterol 90 Inhale 2 puffs into 0 mcg/actuation HFA Aerosol the lungs every 4 Inhaler hours as needed for Wheezing or Shortness of Breath. Use with spacer buPROPion (WELLBUTRIN SR) Take 100 mg by mouth 0 100 mg Tablet Sustained every morning. Release 12 hr terazosin (HYTRIN) 2 mg Take 4 mg by mouth 0 Capsule nightly. allopurinol (ZYLOPRIM) Take 100 mg by mouth 0 100 mg Tablet daily. nitroGLYcerin Place 1 spray under 0 (NITROLINGUAL) 400 the tongue every 5 mcg/spray [place], minutes as needed Non-Aerosol for Chest pain. traZODone (DESYREL) 50 mg Take 100 mg by mouth 0 tablet nightly as needed. losartan (COZAAR) 100 mg Take 50 mg by mouth 0 tablet daily. FELODIPINE ORAL Take 5 mg by mouth 0 every morning. aspirin 81 mg EC tablet Take 81 mg by mouth 0 daily. spironolactone Take 25 mg by mouth 0 1 11/29/2016 (ALDACTONE) 25 mg Tablet daily. carvedilol (COREG) 6.25 Take 6.25 mg by 0 09/28/2017 mg Tablet mouth 2 times daily (with meals). documented as of this encounter Progress Notes Alexandra Shearer RN - 09/15/2017 2:09 PM EST RN reviewed discharge instructions with patient and family, pt states an understanding, IV removed, patient ambulated off the unit with daughter and , belongings sent with patient. Karyn Soliz MD - 09/15/2017 1:10 PM EST CARDIOLOGY RESIDENT PROGRESS NOTE Patient Description: 72 y.o. male with history of CABG presenting with fluid overload and increased anginal symptoms with positive troponin consistent with NSTEMI Active Problems Acute decompensated systolic heart failure Cardiomyopathy NSTEMI Coronary artery disease Interval Events No acute events Breathing is improved, still short of breath with movement. Physical Exam Temp: [36.2 ??C (97.2 ??F)-36.6 ??C (97.9 ??F)] Heart Rate: [54-74] Resp: [9-20] BP: (106-148)/(50-79) SpO2: [88 %-96 %] Heart Rate from SPO2: [53 bpm-70 bpm] Telemetry reviewed General: sitting on the edge of bed, uncomfortable with movement. HEENT: Anicteric sclerae; moist mucous membranes Neck: Veins remain distended, JVP just below angle of the jaw Cor: Normal rate, regular rhythm, s1/s2, no s3; no rub, faint systolic murmur at sternal borders Lungs: Mild crackles at bases, improved air movement Abdomen: Soft, non-tender, non-distended; bowel sounds present Extremities: warm, well perfused; no cyanosis, clubbing, or edema Skin: Normal turgor; no evident petechiae or purpura Neuro: No focal deficits observed Fluid Balance: Intake/Output Summary (Last 24 hours) at 09/15/17 1310 Last data filed at 09/15/17 1145 Gross per 24 hour Intake 1200 ml Output 2400 ml Net -1200 ml Last Weight: (!) 120.2 kg (264 lb 15.9 oz) Admission Weight: 125.6 kg Pertinent Labs Recent Labs 09/15/17 0531 09/14/17 0402 09/13/17 0120 WBC 10.6* 10.8* 11.2* HGB 12.0* 12.5* 11.8* PLATELET 201 212 181 Recent Labs 09/15/17 0531 09/14/17 0402 09/13/17 0120 NA 142 140 137 K 3.7 3.9 3.7 CL 102 99 98 CO2 26 25 25 BUN 38* 45* 45* CREATININE 1.63* 1.68* 1.57* Recent Labs 09/15/17 0531 09/14/17 0402 09/13/17 0120 CALCIUM 8.7 8.9 8.8 MAGNESIUM 0.88 0.97 0.94 Recent Labs 09/10/17 2110 AST 21 ALT 26 ALKPHOS 84 BILITOT 0.5 Recent Labs 09/14/17 2034 09/12/17 1334 09/12/17 0602 TROPONINT 0.03* 0.02* 0.02* CK 88 193 200 Microbiology None Radiology & Studies in Last 24 Hours TTE LVEF 35% EKG NSR no ST elevations Cath indicated 80% stenosis of SVG at the ramus, NAOMI placed. Assessment and Plan 72 year old male with acute decompensated systolic heart failure and decrement in left ventricular systolic function. We are continuing to diurese and will plan a coronary evaluation Thursday. He responded well to torsemide, decreased to 40 mg BID due to increased creatinine. He is much improved and feels ready to leave the hospital. Cardiac cath revealed a stenosis of the SVG to the ramus, which was stented. He also had a LVEDP of 22, indicating the need for further fluid diuresis. We will discharge him on his inhospital torsemidedose with close follow up with his PCP for fluid management. [facility]. Code Status: Full Summary for Today Discharge today Margret Sullivan MD M1-S2, 5599 09/15/17 STAFF ADDENDUM Patient interviewed and examined. Medical record reviewed. I agree with the Intercurrent History Past Medical History Physical Exam Objective Data Assessment and Plan as detailed by Dr. Sullivan, with whom the patient was interviewed, examined, and discussed, with the following additions and/or exceptions. Still reports some CURIEL though much improved since admission. Note that this PCW was 20 mmHg and his LVEDP 22 mmHg. Had successful stenting in his SVG. VSS. Lungs remain with basilar rales. Mildly elevated CVP. No new murmurs, rubs, gallops. Femoral access site without hematoma, thrill or bruit. Distal pulses and sensation intact. Neuro GI. Telemetry benign. Should be seen by Cardiac Rehab. Can safely be discharged but would continue with a slow diuresis as an outpatient. Needs heart failure educations. Should see his PCP in 1-2 weeks for a BMP and assessment of his volume status. Melody Martinez RN - 09/15/2017 6:48 AM EST Cardiac/Telemetry Nursing Progress Note [id number] Subjective: I'm feeling much better Objective: No complaints of SOB or chest pain Vital Signs: See Vital signs below Cardiac Meds: See online MAR Labs: See labs in online chart. Assessment: HR 50-80 SB/ SR Rate down to 47 non sust Rare PVCs RI 0.20 QRS 0.11 RR 0.95 QTc 0.47 Plan: Continue telemetry monitoring. Notify MD of any changes. See Attached Tele Strip. (in green paper chart). Last value Range last 12 hrs Temperature Temp: 36.5 ??C (97.7 ??F) Temp: [36.5 ??C (97.7 ??F)-36.6 ??C (97.9 ??F)] Heart Rate Heart Rate: 69 Heart Rate: [62-69] Blood Pressure BP: 135/65 BP: (118-141)/(61-65) Respiratory Rate Resp: 18 Resp: [16-18] SpO2 SpO2: 96 % SpO2: [92 %-96 %] Elisa Bautista - 09/15/2017 1:53 AM EST Post-Catheterization Progress Note Subjective: Patient denies chest pain, palpitations, dyspnea, light-headedness, groin pain, or back pain. Objective: Vitals: BP 127/61 (BP Location (NBP): Right arm) Pulse 62 Temp 36.6 ??C (97.9 ??F) (Oral) Resp 18 Ht167.6 cm (5' 6) Wt (!) 120.2 kg (264 lb 15.9 oz) SpO2 92% BMI 42.77 kg/m2 Gen: NAD Groin: R femoral access site without hematoma. Ecchymosis along inguinal fold, ~6cm long. Some oozing noted through dressing. No tenderness to palpation. Ext: LE warm with 2+ DP pulses. Sensation intact in LE bilaterally. Back: No flank or back tenderness. No retroperitoneal ecchymosis. Neuro: AO x 3, CN II-CNXII intact, LE strength and sensation intact A/P: Darren Valentine is a 72 y.o. male s/p cardiac catheterization with benign appearing R femoral access site. Dressing removed without oozing and redressed. Elisa Bautista, PGY 2 - Internal Medicine Pager [phone] 09/15/2017 Zachery Lopez RN - 09/14/2017 7:13 PM EST 1900: Pt arrived to bed 442B from lab specialist recovery, awake, alert, OX4, (-) right groin site, VSS. IV infusing at 100cc/hr. Denies pain or discomfort. Eating dinner at present, family with patient. Karyn Wilson MD - 09/14/2017 8:00 AM EST CARDIOLOGY RESIDENT PROGRESS NOTE Patient Description: 72 y.o. male with history of CABG presenting with fluid overload and increased anginal symptoms with positive troponin consistent with NSTEMI Active Problems Acute decompensated systolic heart failure Cardiomyopathy NSTEMI Coronary artery disease Interval Events No acute events Breathing is improved, still short of breath with movement. Physical Exam Temp: [36.3 ??C (97.3 ??F)-36.5 ??C (97.7 ??F)] Heart Rate: [55-67] Resp: [16-20] BP: (94-134)/(50-61) SpO2: [92 %-99 %] Heart Rate from SPO2: -- Telemetry reviewed General: sitting on the edge of bed, uncomfortable with movement. HEENT: Anicteric sclerae; moist mucous membranes Neck: Veins remain distended, JVP just below angle of the jaw Cor: Normal rate, regular rhythm, s1/s2, no s3; no rub, faint systolic murmur at sternal borders Lungs: Mild crackles at bases, better air movement Abdomen: Soft, non-tender, non-distended; bowel sounds present Extremities: warm, well perfused; no cyanosis, clubbing, or edema Skin: Normal turgor; no evident petechiae or purpura Neuro: No focal deficits observed Fluid Balance: Intake/Output Summary (Last 24 hours) at 09/14/17 0800 Last data filed at 09/14/17 0654 Gross per 24 hour Intake 1997.6 ml Output 3850 ml Net -1852.4 ml Last Weight: (!) 120.2 kg (264 lb 15.9 oz) Admission Weight: 125.6 kg Pertinent Labs Recent Labs 09/14/17 0402 09/13/17 0120 09/12/17 0602 WBC 10.8* 11.2* 9.8* HGB 12.5* 11.8* 12.6* PLATELET 212 181 187 Recent Labs 09/14/17 0402 09/13/17 0120 09/12/17 0602 NA 140 137 139 K 3.9 3.7 3.8 CL 99 98 97* CO2 25 25 26 BUN 45* 45* 39* CREATININE 1.68* 1.57* 1.49 Recent Labs 09/14/17 0402 09/13/17 0120 09/12/17 0602 CALCIUM 8.9 8.8 8.9 MAGNESIUM 0.97 0.94 0.88 Recent Labs 09/10/17 2110 AST 21 ALT 26 ALKPHOS 84 BILITOT 0.5 Recent Labs 09/12/17 1334 09/12/17 0602 09/12/17 0020 TROPONINT 0.02* 0.02* 0.04* CK 193 200 224* Microbiology None Radiology & Studies in Last 24 Hours TTE LVEF 35% EKG NSR no ST elevations Assessment and Plan 72 year old male with acute decompensated systolic heart failure and decrement in left ventricular systolic function. We are continuing to diurese and will plan a coronary evaluation Thursday. He responded well to torsemide, but we will hold today for cath. Will re-calculate medical therapy post-cath. #Acute decompensated systolic heart failure #Cardiomyopathy, presumed ischemic --Daily weights, strict I/O --Torsemide PO held for now for cath. --Continue RAAS blockade, aldosterone antagonist, beta mateus, adjust as tolerated --Plan for catheterization today when dry to evaluate coronaries, evaluate for LVEDP #Coronary artery disease #NSTEMI --Heparin GTT --clopidogrel 75 mg after that --ASA, atorvastatin, beta mateus, isosorbide mononitrate --Plan catheterization Thursday #Diabetes --Continue glargine + SSI #COPD --Continue home tiotropium, budesonide-formoterol; duonebs PRN #FEN/PPx/Dispo Fluids: None Electrolytes: Monitor and replete, goal K>4, Mg>1 Nutrition: C/C/O Cardiac 2 gm Na 2 L fluid, NPO at midnight DVT PPx: UFH, therapeutic GI PPx: None Glycemic control: As above Disposition: ICCU, pending course Code Status: Full Summary for Today Cath today Margret Sullivan MD M1-S2, 3141 09/14/17 STAFF ADDENDUM Patient interviewed and examined. Medical record reviewed. I agree with the Intercurrent History Past Medical History Physical Exam Objective Data Assessment and Plan as detailed by Dr. Sullivan, with whom the patient was interviewed, examined, and discussed, with the following additions and/or exceptions. Vigorous diuresis on the torsemide but with some increase in CR.Less CURIEL. VSS. Lungs with dependent rales. No new murmurs, rubs, gallops. Telemetry with occasional PVCs. The plan remains to proceed with a R&L heart catheterization today given his EF of 35% and remote CABG in 2007. Karyn Soliz MD - 09/13/2017 6:50 AM EST CARDIOLOGY RESIDENT PROGRESS NOTE Patient Description: 72 y.o. male with history of CABG presenting with fluid overload and increased anginal symptoms with positive troponin consistent with NSTEMI Active Problems Acute decompensated systolic heart failure Cardiomyopathy NSTEMI Coronary artery disease Interval Events No acute events -1.2 L since yesterday AM Physical Exam Temp: [36.3 ??C (97.3 ??F)-37 ??C (98.6 ??F)] Heart Rate: [62-80] Resp: [18-22] BP: (102-131)/(44-62) SpO2: [95 %-97 %] Heart Rate from SPO2: -- Telemetry reviewed General: sitting on the edge of bed, uncomfortable with movement. HEENT: Anicteric sclerae; moist mucous membranes Neck: Veins remain distended, JVP just below angle of the jaw Cor: Normal rate, regular rhythm, s1/s2, no s3; no rub, faint systolic murmur at sternal borders Lungs: Still has rales at bases, better air movement Abdomen: Soft, non-tender, non-distended; bowel sounds present Extremities: warm, well perfused; no cyanosis, clubbing, or edema Skin: Normal turgor; no evident petechiae or purpura Neuro: No focal deficits observed Fluid Balance: Intake/Output Summary (Last 24 hours) at 09/13/17 0650 Last data filed at 09/13/17 0645 Gross per 24 hour Intake 726.75 ml Output 1950 ml Net -1223.25 ml Last Weight: (!) 120.7 kg (266 lb 1.5 oz) Admission Weight: 125.6 kg Pertinent Labs Recent Labs 09/13/17 0120 09/12/17 0602 09/10/17 2110 WBC 11.2* 9.8* 13.1* HGB 11.8* 12.6* 12.2* PLATELET 181 187 184 Recent Labs 09/13/17 0120 09/12/17 0602 09/11/17 0505 NA 137 139 140 K 3.7 3.8 4.1 CL 98 97* 99 CO2 25 26 Not Perf BUN 45* 39* 33* CREATININE 1.57* 1.49 1.52* Recent Labs 09/13/17 0120 09/12/17 0602 09/11/17 0505 09/10/17 2110 CALCIUM 8.8 8.9 9.2 9.4 MAGNESIUM 0.94 0.88 -- 0.88 Recent Labs 09/10/17 2110 AST 21 ALT 26 ALKPHOS 84 BILITOT 0.5 Recent Labs 09/12/17 1334 09/12/17 0602 09/12/17 0020 TROPONINT 0.02* 0.02* 0.04* CK 193 200 224* Microbiology None Radiology & Studies in Last 24 Hours TTE LVEF 35% EKG NSR no ST elevations Assessment and Plan 72 year old male with acute decompensated systolic heart failure and decrement in left ventricular systolic function. We are continuing to diurese and will plan a coronary evaluation Thursday. By physical exam, we will continue with diuresis orally today, but with torsemide as he states he is not responsive to lasix. NPO at midnight for cath tomorrow for ischaemia eval. #Acute decompensated systolic heart failure #Cardiomyopathy, presumed ischemic --Daily weights, strict I/O --Torsemide PO start today, target -1 L over 24 hours --Continue RAAS blockade, aldosterone antagonist, beta mateus, adjust as tolerated --Plan for catheterization Thursday when dry to evaluate coronaries, evaluate for LVEDP #Coronary artery disease #NSTEMI --Heparin GTT --Load clopidogrel, 75 mg after that --ASA, atorvastatin, beta mateus, isosorbide mononitrate --Plan catheterization Thursday #Diabetes --Continue glargine + SSI #COPD --Continue home tiotropium, budesonide-formoterol; duonebs PRN #FEN/PPx/Dispo Fluids: None Electrolytes: Monitor and replete, goal K>4, Mg>1 Nutrition: C/C/O Cardiac 2 gm Na 2 L fluid, NPO at midnight DVT PPx: UFH, therapeutic GI PPx: None Glycemic control: As above Disposition: ICCU, pending course Code Status: Full Summary for Today Continue diuresis Continue ACS treatment NPO midnight for cath Margret Sullivan MD M1-S2, 3037 09/13/17 STAFF ADDENDUM Patient interviewed and examined. Medical record reviewed. I agree with the Intercurrent History Past Medical History Physical Exam Objective Data Assessment and Plan as detailed by Dr. Sullivan, with whom the patient was interviewed, examined, and discussed, with the following additions and/or exceptions. Resolved orthopnea but still with some CURIEL. Weight down 1 pound overnight. Tolerating medications. VSS. Lungs with only dependent rales. Elevated CVP. I/ holosystolic murmur. Trace pedal edema. Neuro GI. Telemetry benign. CR stable. Would continue with a gentle diuresis. I think we can trial him on PO diuretics. He states that the furosemide has not been all thateffective. Would try him on torsemide. Suggest 60 mg BID. Plan to proceed with a R&L heart catheterization tomorrow. Karyn Soliz MD - 09/12/2017 7:02 AM EST CARDIOLOGY RESIDENT PROGRESS NOTE Patient Description: 72 y.o. male with history of CABG presenting with fluid overload and increased anginal symptoms with positive troponin consistent with NSTEMI Active Problems Acute decompensated systolic heart failure Cardiomyopathy NSTEMI Coronary artery disease Interval Events No acute events Given additional furosemide 80 mg IV overnight to achieve target negative fluid balance Episode of chest and jaw pain, lasted 2 minutes, relieved with nitroglycerin, EKG without acute changes This morning Mr. Valentine feels well. He says his breathing is still not perfect but improving. Physical Exam Temp: [36.5 ??C (97.7 ??F)-37.1 ??C (98.8 ??F)] Heart Rate: [62-82] Resp: [18-20] BP: (109-134)/(51-67) SpO2: [93 %-99 %] Heart Rate from SPO2: -- Telemetry reviewed General: Acutely ill HEENT: Anicteric sclerae; moist mucous membranes Neck: Veins remain distended, but improved Cor: Normal rate, regular rhythm, s1/s2, no s3; no rub, ? faint systolic murmur at sternal borders Lungs: Still has rales at bases, better air movement Abdomen: Soft, non-tender, non-distended; bowel sounds present Extremities: warm, well perfused; no cyanosis, clubbing, or edema Skin: Normal turgor; no evident petechiae or purpura Neuro: No focal deficits observed Fluid Balance: Intake/Output Summary (Last 24 hours) at 09/12/17 1042 Last data filed at 09/12/17 0900 Gross per 24 hour Intake 700 ml Output 3800 ml Net -3100 ml Last Weight: (!) 120.7 kg (266 lb 1.5 oz) Admission Weight: 125.6 kg Pertinent Labs Recent Labs 09/12/17 0602 09/10/172109 WBC 9.8* 13.1* HGB 12.6* 12.2* PLATELET 187 184 Recent Labs 09/12/17 0602 09/11/17 0505 09/10/172109 NA 139 140 140 K 3.8 4.1 4.6 CL 97* 99 101 CO2 26 Not Perf 27 BUN 39* 33* 35* CREATININE 1.49 1.52* 1.53* Recent Labs 09/12/17 0602 09/11/17 0505 09/10/172109 CALCIUM 8.9 9.2 9.4 MAGNESIUM 0.88 -- 0.88 Recent Labs 09/10/17 2110 AST 21 ALT 26 ALKPHOS 84 BILITOT 0.5 Recent Labs 09/12/17 0602 09/12/17 0020 09/11/17 1653 TROPONINT 0.02* 0.04* 0.03* CK 200 224* 213* Microbiology None Radiology & Studies in Last 24 Hours TTE LVEF 35% EKG NSR no ST elevations Assessment and Plan 72 year old male with acute decompensated systolic heart failure and decrement in left ventricular systolic function. We are continuing to diurese and will plan a coronary evaluation Thursday when he is closer to his dry weight. He had chest pain at rest overnight with positive troponin consistent with NSTEMI and will treat him medically. Plan for catheterization Thursday. #Acute decompensated systolic heart failure #Cardiomyopathy, presumed ischemic --Daily weights, strict I/O --Furosemide IV boli as needed, target -1 L over 24 hours --Continue RAAS blockade, aldosterone antagonist, beta mateus, adjust as tolerated --Plan for catheterization Thursday when dry to evaluate coronaries #Coronary artery disease #NSTEMI --Heparin GTT --Load clopidogrel, 75 mg after that --ASA, atorvastatin, beta mateus, isosorbide mononitrate --Plan catheterization Thursday #Diabetes --Continue glargine + SSI #COPD --Continue home tiotropium, budesonide-formoterol; duonebs PRN #FEN/PPx/Dispo Fluids: None Electrolytes: Monitor and replete, goal K>4, Mg>1 Nutrition: C/C/O Cardiac 2 gm Na 2 L fluid, NPO at midnight DVT PPx: UFH, therapeutic GI PPx: None Glycemic control: As above Disposition: ICCU, pending course Code Status: Full Summary for Today Continue diuresis Start ACS treatment Michael Terry PGY-3 S2 Pager [phone] STAFF ADDENDUM Patient interviewed and examined. Medical record reviewed. I agree with the Intercurrent History Past Medical History Physical Exam Objective Data Assessment and Plan as detailed by Dr. Terry, with whom the patient was interviewed, examined, and discussed, with the following additions and/or exceptions. His clinical status is improving as his acute systolic heartfailure resolves. I agree with continuing to diurese but at a slow rate to avoid any pre-renal change in his kidney function. The plan remains to proceed with a R&L heart catheterization given his depressed EF of 35%. Jacy Samuels, RN - 09/11/2017 11:45 PM EST Patient awoke from sleep with 8/10 chest pain, stated pain started between scapula radiated to jaw. Pt VS stable, patient given nitro SL x 2 with good effect. EKG done showed no changes. MD was notified during this event and came to bedside and evaluated patient. An additional 80mg IV lasix to be given to help with further diuresis. Will continue to monitor and notify team if any further events occur. Brandee Jordan DT - 09/11/2017 2:52 PM EST Nutrition Services - Education Note Darren Valentine : 1945 AGE: 72 y.o. Patient Active Problem List Diagnosis Date Noted ??? Neuropathic pain 12/17/2011 ??? ASCVD (arteriosclerotic cardiovascular disease) ??? Hospital-Heart failure ??? Diabetes mellitus with neuropathy ??? Hypertension ??? Ischemic cardiomyopathy 09/16/2008 ??? NSTEMI (non-ST elevated myocardial infarction) 09/12/2008 Reason for Nutrition Intervention: Diagnosis Diet Order: CHO2 Appetite: Fairly good- per pt Food allergies: NKFA Chewing/Swallowing difficulty: none noted Ht Readings from Last 3 Encounters: 09/10/17 167.6 cm (5' 6) 12/15/14 182.9 cm (6') 05/03/12 182.9 cm (6') Wt Readings from Last 3 Encounters: 09/11/17 (!) 123.8 kg (272 lb 14.9 oz) 12/15/14 (!) 123.8 kg (273 lb) 05/05/12 (!) 118.4 kg (261 lb 0.4 oz) Body mass index is 44.05 kg/(m^2). Education: [employer] educational material. Verbalized good understanding. Education material, with means of contact provided. Assessment: Patient seen for diagnosis- Heart failure. Due to admission dx, suggest adding Na2gm lowsodium diet to current low carbohydrate diet. Upon arrival family at bedside. Patient verbalized good understanding of current dietary restrictions at this time. Pt requested low sodium diet education.Family stating pt eats a lot of frozen meals. Field Map Editor informed pt/ family how many milligrams of sodium a low sodium diet consists of for daily total and researching and comparing low sodium meals options. He reported a good appetite without difficulty chewing or swallowing. Pt stated he consumed 100% PO intake of breakfast and 75% PO intake of lunch today. He is tolerating current diet without nauseaor vomiting. Pt stated, I do use salt, that's why I'm here. Suggested using herbs and spices to incorporate flavor in foods. Field Map Editor provided extra pepper and Mrs. Torres to dinner tray tonight per pt request. Discussed how to read a food label and what terms to look for while grocery shopping. Emphasiz ed the importance of portion sizes as well. Encouraged daily consumption of fresh fruits and vegetables, lean meats and fish, whole grains and low-fat dairy products. Educational material [employer] provided with contact information if further questions arise. Patient had no further questions at this time. Encouraged patient to contact Food and Nutrition services with any questions that may arise. Nutrition will continue to follow. Nutrition Plan: Suggest adding Na2gm to current low carbohydrate diet. Recommend Daily Multi Vitamins. Encourage good po intake. Monitor weight. Support and encouragement provided. Nutrition services to follow weekly thru hospital course unless consulted in the interim. CHERYL Reed Karyn Wilson MD - 09/11/2017 11:23 AM EST Inpatient Cardiology Progress Note Admission Date: 09/10/2017 Covering Team: S2, Pager #[phone] Problem List: Active Hospital Problems Heart failure 24 Hour Events: - Admitted overnight - Received 80 mg IV lasix bolus - 2.0 L Uop since admission Subjective: - Still excessively SOB from baseline, exacerbated with movement - No anginal chest pain, otherwise comfortable at rest Physical Exam: Last value Range last 24 hrs Temperature Temp: 36.4 ??C (97.5 ??F) Temp: [36.4 ??C (97.5 ??F)-36.7 ??C (98.1 ??F)] Heart Rate Heart Rate: 81 Heart Rate: [77-81] Blood Pressure BP: 130/53 BP: (122-146)/(53-71) Respiratory Rate Resp: 20 Resp: [20] SpO2 SpO2: 94 % SpO2: [94 %-97 %] I/O last 3 completed shifts: In: 240 [P.O.:240] Out: 2450 [Urine:2450] Intake/Output Summary (Last 24 hours) at 09/11/17 1126 Last data filed at 09/11/17 0900 Gross per 24 hour Intake 840 ml Output 3100 ml Net -2260 ml Last Wt (!) 123.8 kg (272 lb 14.9 oz) Admit Wt 125.6 kg General: Lying comfortably in bed, NAD ENT: PERRL, MMM Cardiac: Normal rate, regular rhythm, nl s1 and s2, soft systolic murmur at RUSB; JVP visualized at the jaw line. Pulmonary: Nl respiratory effort, diminished air entry, Mild bilaterally inspiratory crackles at bases Abdomen: Obese habitus, soft, NT, ND, nl bs Extremities: Trace lower extremity edema bilaterally Neuro: 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, strength grossly intact bilaterally in upper and lower extremities Laboratory (last 24 hrs): Recent Labs 09/10/172109 WBC 13.1* HGB 12.2* HCT 38.5* PLATELET 184 NEUTROABS 10.50* Recent Labs 09/11/17 0505 09/10/172109 NA 140 140 K 4.1 4.6 CL 99 101 CO2 Not Perf 27 BUN 33* 35* CREATININE 1.52* 1.53* GLUCOSE 110 118 Recent Labs 09/11/17 0505 09/10/172109 CALCIUM 9.2 9.4 MAGNESIUM -- 0.88 Recent Labs 09/10/172109 AST 21 ALT 26 ALKPHOS 84 BILITOT 0.5 Recent Labs 09/11/17 0505 09/10/172109 TROPONINT 0.03* 0.04* CK 182 195 No results for input(s): PHART, OFD2VIA, PO2ART, [id number] in the last 168 hours. No results for input(s): INR in the last 72 hours. Micro: Diagnostics and Imaging: Meds: Scheduled Meds: ??? docusate sodium 100 mg Oral BID ??? sodium chloride 0.9 % 5 mL Intravenous BID ??? sodium chloride 0.9 % 5 mL Intravenous Q12H ??? heparin (Porcine) 5,000 Units Subcutaneous BID ??? allopurinol 100 mg Oral Daily ??? aspirin 81 mg Oral Daily ??? atorvastatin 80 mg Oral QPM ??? budesonide-formoterol 2 Inhalation Inhalation BID ??? buPROPion 100 mg Oral QAM ??? carvedilol 6.25 mg Oral BID WC ??? DULoxetine 60 mg Oral BID ??? felodipine 5 mg Oral QAM ??? isosorbide mononitrate 120 mg Oral Daily ??? losartan 50 mg Oral Daily ??? spironolactone 25 mg Oral Daily ??? terazosin 4 mg Oral Nightly ??? tiotropium 18 mcg Inhalation Daily ??? insulin lispro 3-12 Units Subcutaneous Q4H MAUREEN ??? insulin glargine 30 Units Subcutaneous QAM Continuous Infusions: PRN Meds:.sodium chloride 0.9 %, nitroGLYcerin, sodium chloride 0.9 %, lidocaine, oxyCODONE-acetaminophen, traZODone, ipratropium-albuterol, dextrose 50% OR glucagon (human recombinant) Assessment and Plan: Darren Valentine is a 72 y.o. male with prior CABG, COPD, HTN, and DM admitted with a chief complaintof shortness of breath. At [facility] he effectively ruled out for ACS with the elevated troponins likely secondary to strain in the context of decompensated heart failure. This is further supported by his unremarkable EKG and lack of chest pain. He continues to demonstrate clinical signs of heart failure on exam and per laboratory data. This is likely secondary to an ischemic cardiomyopathy. Upon further interview, the patient admits to not adhering to a low sodium diet, relating to difficulty in taking care of himself and his disabled at home. He mainly eats microwave meals that are high in sodium. We will continue with diuresis with intermittent boluses of lasix and monitor his creatinine. We will need to hold some of his cardiac meds if his SBP is too low. A repeat echo is warranted, as sign off from previous hospital gave 2 EFs - 28% and 45%. We will need to clarify this to pursue ongoing therapy. # Acute decompensated systolic heart failure # Ischemic cardiomyopathy - Unlikely ACS induced troponemia - furosemide 80mg IV now - daily weights - ASA 81mg - atorvastatin 80mg daily - carvedilol 6.25mg bid - felodipine 5mg daily - isosorbide mononitrate 120mg daily - losartan 50mg daily - spironolactone 25mg daily #JOSE - Creatinine 1.52, likely due to aggressive diuresis - Will continue diuresis due to HF symptoms - Monitor BMP daily. ?? # COPD - tiotropium - budesonide formoterol - duonebs prn ?? # DM - glargine 30U qam - ISS ? #Housekeeping: - DVT PPx: heparin subq - GI PPx: none - Diet: carb control - Level of care: ICCU - Vitals: q4 ?? Discussed Advanced Directives and Code Status. The patient wishes to be FULL CODE. Summary: - Continue to diurese - Okay to hold other cardiac meds that can lower BP, diuresis is priority - Echo today - Monitor creatinine Margret Sullivan MD, #[id number] PGY1 Internal Medicine 09/11/2017 Cardiology S2 Team, Pager #[phone] STAFF ADDENDUM Patient interviewed and examined. Medical record reviewed. I agree with the History of Present Illness Past Medical History Family History, Social History Review of Systems Physical Exam Objective Data Assessment and Plan as detailed by Dr. Sullivan, with whom the patient was interviewed, examined, and discussed, with the following additions and/or exceptions. My history suggest that he has been experiencing crescendo angina over the last several months with increasing use of nitrates both with exertion and at rest. This culminated in his admission for acute systolic heart failure with positive TN suggesting either demandischemia or ischemia precipitating heart failure. His orthopnea has responded well to diuresis but he remains with unusual CURIEL. While the stress test from the outside hospital was interpreted as showing inferior infarct with no ischemia a preliminary look at our echo today suggests that the anterior wall is hypokinetic. This suggests the possibility of flow limiting disease/ischemia in the anterior wall. With this finding and given his history of crescendo angina I favor proceeding with a cardiac catheterization and possible PCI once we have cleared his heart failure, likely on Thursday. documented in this encounter H&P Notes Guru Yeung MD - 09/10/2017 7:34 PM EST Cardiology Admission H&P Patient Name: DARREN VALENTINE Date of : 1945 Age: 72 y.o. Hospital Admit Date: 09/10/2017 Inpatient Attending: Dr. Olivier PCP: Edil Schmidt APRN Presenting Diagnosis/Chief Complaint: Shortness of breath History of Present Illness: Darren Valentine is a 72 y.o. male with HTN, ASCVD sp CABG in 2007, chronic heart failure, COPD and DM who presented initially to [facility] with chief complaint of shortness of breath and found to have decompensated heart failure. Six days ago the patient started experiencing shortness of breath. It became progressive such that he was unable to lie flat in bed as he is normally able to do. He noted continued progression and fivedays ago he was dizzy and markedly dyspneic just with walking. The next day he had dyspnea just withvacuuming his rug. This prompted him to seek medical care and he called an ambulance and was admitted to [facility]. At baseline required only nightly 2.5L o2 and now has needed daytime oxygen. He endorses mild central chest pain 6 days ago that abated with nitro spray. Has stable angina at baseline that manifests as jaw pain, always responsive to nitro spray. Denies fevers, chills, worseningwheezing above rare brief baseline episodes, changes in bowel habits, difficulty with urination, changes in vision or hearing. Endorses easy bruising on arms. He has had exertional dyspnea in the past but never an episode like this in the past. He was admitted on 09/07 at [facility] and treated initially for ACS given elevated trop in context of dyspnea (trop peaked at 0.15). A stress test was notable for a fixed defect only. He was being prepared for discharge when this morning he tried going to bathroom this morning at [facility] and was markedly dyspneic. For this reason he and his providers at [facility] Other notable labs Cr 1.5, WBC 12, probnp 3500. Presently breathing is better as long as he doesn't exert himself. Notable cardiac history: --CABG in 2007, MARTINEZ to LAD, SVG to OM, SVG to ramus --BMS to 90% stenosis of LAD and BMS to LCX in 2001 after having anginal symptoms --Recurrent pain with cath in 08/2002. Showed mild restenosis in LCX stent, severe restenosis in LAD stent --05/05/2008 Last Cardiac Cath showed EF 45%, 20% stenosis of LAD --LAD stent PCI with cutting balloon/brachy therapy, August 2002. --Recurrent pain, January 2003, recatheterized at an outside facility with LAD stenosis distal to first stent, additional stent placed. -- Heart catheter[place], [facility] 06, 2003: 20% distal LM, mild diffuse proximal LAD; normal LCX and RCA; EF 45%. 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 Past Medical History: Past Medical History: Diagnosis Date ??? ASCVD (arteriosclerotic cardiovascular disease) ??? Diabetes mellitus with neuropathy ??? Hypertension ??? Ischemic cardiomyopathy 09/16/2008 ??? Neuropathic pain 12/17/2011 ??? NSTEMI (non-ST elevated myocardial infarction) 09/12/2008 ??? Shortness of breath 05/03/2012 Patient Active Problem List Diagnosis Code ??? ASCVD (arteriosclerotic cardiovascular disease) I25.10 ??? Heart failure I50.9 ??? Diabetes mellitus with neuropathy E11.40 ??? Hypertension I10 ??? Ischemic cardiomyopathy I25.5 ??? NSTEMI (non-ST elevated myocardial infarction) I21.4 ??? Neuropathic pain M79.2 Past Surgical History: Past Surgical History: Procedure Laterality Date ??? CORONARY ARTERY BYPASS GRAFT 08/2008 Social History: Social History Social History ??? Marital status: Spouse name: N/A ??? Number of children: N/A ??? 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 Smoking status: Former Smoker Quit date: 10/26/1991 ??? Smokeless tobacco: Not on file ??? Alcohol use No ??? Drug use: Not on file ??? Sexual activity: Not on file Other Topics Concern ??? Not on file Social History Narrative Lives with in [place], [place]. Has [facility] services as he is 100% connected due to [employer]. Worked for the [employer] in the past. Family History: Family History Problem Relation Age of Onset ??? Heart Disease Father Hypertension Allergies: Allergies Allergen Reactions ??? Penicillins Hives Anaphylaxis ??? Ambien [Zolpidem] Other (See Comments) confusion ??? Fentanyl Other (See Comments) Confusion ??? Lipitor [Atorvastatin] Other (See Comments) Leg weakness Medications: Prescriptions Prior to Admission Medication Sig Dispense Refill Last Dose ??? spironolactone (ALDACTONE) 25 mg Tablet Take 25 mg by mouth daily. ??? tiotropium (SPIRIVA) 18 mcg Capsule, w/Inhalation Device Inhale 18 mcg into the lungs daily. ??? oxyCODONE-acetaminophen (PERCOCET) 5-325 mg Tablet Take 1 tablet by mouth every 4 hours as needed for Pain. ??? isosorbide mononitrate (IMDUR) 120 mg Tablet Sustained Release 24 hr Take 120 mg by mouth daily. ??? glipiZIDE (GLUCOTROL) 5 mg Tablet Take 2.5 mg by mouth 2 times daily (before meals). ??? DULoxetine (CYMBALTA) 60 mg Capsule, Delayed Release(E.C.) Take 60 mg by mouth 2 times daily. ??? docusate sodium (COLACE) 100 mg Capsule Take 100 mg by mouth 3 times daily as needed for Constipation. ??? carvedilol (COREG) 6.25 mg Tablet Take 6.25 mg by mouth 2 times daily (with meals). ??? budesonide-formoterol (SYMBICORT) 160-4.5 mcg/actuation HFA Aerosol Inhaler Inhale 2 puffs into the lungs 2 times daily. ??? atorvastatin (LIPITOR) 80 mg Tablet Take 80 mg by mouth daily. ??? albuterol 90 mcg/actuation HFA Aerosol Inhaler Inhale 2 puffs into the lungs every 4 hours as needed for Wheezing or Shortness of Breath. Use with spacer ??? buPROPion (WELLBUTRIN SR) 100 mg Tablet Sustained Release 12 hr Take 100 mg by mouth every morning. ??? terazosin (HYTRIN) 2 mg Capsule Take 4 mg by mouth nightly. ??? allopurinol (ZYLOPRIM) 100 mg Tablet Take 100 mg by mouth daily. ??? nitroGLYcerin (NITROLINGUAL) 400 mcg/spray [place], Non-Aerosol Place 1 spray under the tongue every 5 minutes as needed for Chest pain. ??? traZODone (DESYREL) 50 mg tablet Take 100 mg by mouth nightly as needed. ??? losartan (COZAAR) 100 mg tablet Take 50 mg by mouth daily. ??? FELODIPINE ORAL Take 5 mg by mouth every morning. ??? aspirin 81 mg EC tablet Take 81 mg by mouth daily. ??? insulin glargine (LANTUS) 100 unit/mL vial injection Inject 60 Units subcutaneously every morning. ??? furosemide (LASIX) 80 mg tablet Take 60 mg by mouth 2 times daily. PHYSICAL EXAM: Last value Range last 24 hrs Temperature Temp: 36.5 ??C (97.7 ??F) Temp: [36.5 ??C (97.7 ??F)-36.7 ??C (98.1 ??F)] Heart Rate Heart Rate: 77 Heart Rate: [77-79] Blood Pressure BP: 122/60 BP: (122-146)/(56-60) Respiratory Rate Resp: 20 Resp: [20] SpO2 SpO2: 95 % SpO2: [95 %-96 %] General: Lying comfortably in bed, NAD ENT: PERRL, MMM Cardiac: Normal rate, regular rhythm, nl s1 and s2, soft systolic murmur at RUSB; JVP visualized up to tragus Pulmonary: Nl respiratory effort, diminished air entry bilaterally with inspiratory crackles at bases Abdomen: Soft, NT, ND, nl bs Extremities: Trace lower extremity edema bilaterally 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: 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, strength grossly intact bilaterally in upper and lower extremities Recent Results (from the past 24 hour(s)) pro-Brain Natriuretic Peptide Result Value Ref Range ProBNP 2704 (H) <=125 pg/mL Cardiac Enzymes (LEB/CGP) Result Value Ref Range Troponin-T 0.04 (H) 0.00 - 0.00 ng/mL CK, Total 195 0 - 200 unit/L Comprehensive metabolic panel (non-fasting) Result Value Ref Range Glucose Lvl 118 65 - 199 mg/dL BUN 35 (H) 10 - 20 mg/dL Creatinine 1.53 (H) 0.80 - 1.50 mg/dL Sodium 140 135 - 145 mmol/L Potassium 4.6 3.5 - 5.0 mmol/L Chloride 101 98 - 107 mmol/L CO2 27 22 - 31 mmol/L Anion Gap 12 5 - 15 mmol/L Calcium 9.4 8.5 - 10.5 mg/dL Total Protein 7.0 6.1 - 8.0 gm/dL Albumin 4.1 3.2 - 5.2 gm/dL AST 21 0 - 39 unit/L ALT 26 0 - 55 unit/L Alk Phos 84 40 - 120 unit/L Total Bilirubin 0.5 0.2 - 1.3 mg/dL Estimated GFR 45 (L) >=60 Magnesium Result Value Ref Range Magnesium 0.88 0.69 - 1.07 mmol/L TSH Result Value Ref Range TSH 3.16 0.27 - 4.20 mlU/ML Hemoglobin A1c Result Value Ref Range Hemoglobin A1C 7.2 (H) 4.3 - 5.6 % Est Avg Gluc See note mg/dL HDL/Cholesterol Profile Result Value Ref Range Chol, Total 155 <=239 mg/dL HDL 43 >=40 mg/dL Chol/HDL Ratio 3.6 ratio Chol/HDL Interpretation See Note LDL Cholesterol, Direct Result Value Ref Range LDL Chol Direct 99 <=190 mg/dL Hemogram Result Value Ref Range WBC 13.1 (H) 4.0 - 9.5 x10(3)/mcL RBC 4.38 (L) 4.58 - 5.54 x10(6)/mcL Hemoglobin 12.2 (L) 13.7 - 16.5 gm/dL Hematocrit 38.5 (L) 40.5 - 48.5 % MCV 87.9 82.9 - 93.1 fL MCH 27.9 27.5 - 32.1 pg MCHC 31.7 (L) 32.0 - 35.7 gm/dL Platelets 184 145 - 357 x10(3)/mcL RDWSD 47.5 (H) 36.0 - 45.0 fL RDWCV 14.6 (H) 11.4 - 13.8 % MPV 10.4 7.6 - 12.9 fL nRBC % Auto 0.0 % nRBC Abs Auto 0.000 0.000 - 0.000 x10(3)/mcL Differential, Automated Result Value Ref Range Neutrophils % 80.3 % Neutr Abs (ANC) 10.50 (H) 1.70 - 6.10 x10(3)/mcL Lymphocytes % 10.0 % Lymphocytes Abs 1.3 0.9 - 3.2 x10(3)/mcL Monocytes % 7.7 % Monocyte Abs 1.0 (H) 0.3 - 0.9 x10(3)/mcL Eosinophils % 1.1 % Eosinophils Abs 0.1 0.0 - 0.4 x10(3)/mcL Basophils % 0.4 % Basophils Abs 0.0 0.0 - 0.1 x10(3)/mcL Immature Gran % 0.50 % Kayla Gran Abs 0.07 (H) 0.00 - 0.04 x10(3)/mcL Imaging/Diagnostics: NM stress test performed at [facility] on 09/09/17 showed large fixed defect in the apical inferior, inferolateral, and apical dempsey. TTE at [facility] showed LVEF 40-45% with diffuse hypokinesis, moderate AR, TR, and MR; pasp 40 CXR on admission without acute ischemic changes. ASSESSMENT and PLAN: Darren Valentine is a 72 y.o. male with prior CABG, COPD, HTN, and DM admitted with a chief complaintof shortness of breath. At [facility] he effectively ruled out for ACS with the elevated troponins likely secondary to strain in the context of decompensated heart failure. This is further supported by his unremarkable EKG and lack of chest pain. He continues to demonstrate clinical signs of heart failure on exam and per laboratory data. This is likely secondary to an ischemic cardiomyopathy. Will therefore diurese overnight and work toward optimizing his outpatient heart failure regimen. # Acute decompensated systolic heart failure # Ischemic cardiomyopathy - furosemide 80mg IV now - daily weights - ASA 81mg - atorvastatin 80mg daily - carvedilol 6.25mg bid - felodipine 5mg daily - isosorbide mononitrate 120mg daily - losartan 50mg daily - spironolactone 25mg daily # COPD - tiotropium - budesonide formoterol - duonebs prn # DM - glargine 30U qam - ISS #Housekeeping: - DVT PPx: heparin subq - GI PPx: none - Diet: carb control - Level of care: ICCU - Vitals: q4 Discussed Advanced Directives and Code Status. The patient wishes to be FULL CODE. Guru Yeung MD PGY 2 Internal Medicine Cardiology Inpatient Service documented in this encounter Miscellaneous Notes Consult Note - Chioma Spencer RN - 09/15/2017 1:04 PM EST Cardiac Rehabilitation Inpatient Evaluation Primary Cardiac Diagnosis: NSTEMI, PCI Patient Education: Patient has extensive CAD history with prior CABG and PCI's. He has done cardiac rehab in the past. Unfortunately, he has become quite sedentary recently and is somewhat limited by neuropathy. Given parameters for home exercise. Reviewed managing angina /use of sl nitroglycerin. Phase II Referral: Participation in the outpatient cardiac rehabilitation program at [facility] was discussed. Patient agrees to a referral to this program. The referral will be sent at discharge and the patient should be contacted by the Program within 1- 2 weeks from discharge. Activity Summary: By discharge, patient will be able to perform self care, walk 5-7 minutes and go up and down stairs without signs or symptoms of ischemia. Activity Baseline Response Symptoms/Comments Walk ~5 min HR 62 85 [place] walk well. Somewhat unsteady d/t Patient seen on BP 111/52 126/67 neuropathy. This is his baseline. He has 3 east O2 Sat 95% 93% a cane for home use. ECG SR SR Plan of Care - Melody Salamanca RN - 09/15/2017 6:31 AM EST Problem: Patient Care Overview Goal: Plan of Care Review Outcome: Ongoing (Interventions Implemented as Appropriate) 09/15/17 0540 Plan of Care Review Progress progress toward functional goals as expected Coping/Psychosocial Plan Of Care Reviewed With patient OUTCOME EVALUATION NOTE: OUTCOME SUMMARY: Patient arrived to room 337 from 4 east at 2145. Patient A&Ox4 and VSS. C/o of neuropathic pain in feet, requesting percocet 2x with good effect. Slept with 2.5L via NC on which is patient's baseline. Cath site had some bloody drainage on it, removed and redressed. Will continue to monitor and notify MD of any acute changes. PLAN MOVING FORWARD: Discharge planning INDIVIDUALIZED FALL PREVENTION INTERVENTIONS: Patient-specific fall risk factors per assessment: [current deficits]: Unfamiliar environment Assistance [level of assistance required for transfers and ambulation]: independent Supervision [direct monitoring required during toileting and ADLs]: independent Surveillance [continuous indirect monitoring]: Masmio, tele, call vanegas within reach Patient-specific fall prevention interventions for sensory deficits provided, if applicable: [X] Yes CPG GOAL OUTCOME EVALUATION: Goal: Individualization & Mutuality Outcome: Ongoing (Interventions Implemented as Appropriate) 09/11/17 0000 Mutuality/Individual Preferences What Anxieties, Fears or Concerns Do You Have About Your Health or Care? Nothing specified What Questions Do You Have About Your Health or Care? Nothing specified What Information Would Help Us Give You More Personalized Care? Nothing specified Goal: Infection Control Outcome: Ongoing (Interventions Implemented as Appropriate) 09/15/17 0540 Safety Interventions Isolation Precautions standard precautions maintained Infection Prevention single patient room provided;rest/sleep promoted Coping Strategies Supportive Measures active listening utilized;positive reinforcement provided;self-care encouraged;verbalization of feelings encouraged Goal: Discharge Needs Assessment Outcome: Ongoing (Interventions Implemented as Appropriate) 09/13/17 1838 Discharge Needs Assessment Concerns To Be Addressed no discharge needs identified Readmission Within The Last 30 Days no previous admission in last 30 days Activity/Self Care Review of Systems Equipment Currently Used at Home oxygen Living Environment Transportation Available car;family or friend will provide Goal: Interdisciplinary Rounds/Family Conf Outcome: Ongoing (Interventions Implemented as Appropriate) 09/15/17 0540 Interdisciplinary Rounds/Family Conf Participants nursing;patient;physician Problem: Cardiac: Heart Failure (Adult) Intervention: Promote Functional Ability 09/12/17 0809/13/17 0815 09/15/17 0539 Daily Care Interventions Self-Care Promotion independence encouraged;BADL personal objects within reach;BADL personal routines maintained -- -- Activity Activity Type -- -- activity adjusted per tolerance Activity Assistance Provided -- -- independent Coping/Psychosocial Interventions Environmental Support -- rest periods encouraged -- Intervention: Provide Oxygenation/Ventilation/Perfusion Support 09/13/17 0815 09/15/17 0539 09/15/17 0540 Safety Interventions Medication Review/Management -- medications reviewed -- Respiratory Interventions Airway/Ventilation Management -- -- airway patency maintained Activity Activity Type -- activity adjusted per tolerance -- Positioning Head of Bed (HOB) HOB at 30 degrees -- -- Intervention: Support Psychosocial Response to Heart Failure 09/15/17 0540 Coping Strategies Supportive Measures active listening utilized;positive reinforcement provided;self-care encouraged;verbalization of feelings encouraged Family/Support System Care support provided;self-care encouraged Intervention: Gradually Correct Positive Fluid Balance 09/13/17195109/14/17224309/15/17 05 Positioning Body Position -- -- independent Skin Interventions Skin Protection -- tubing/devices free from skin contact -- Nutrition Interventions Fluid/Electrolyte Management fluids restricted -- -- Intervention: Prevent/Manage DVT/VTE Risk 09/15/17 0540 Support Surgical/Anesthesia Recovery VTE Prevention/Management ambulation promoted;AROM (active range of motion) performed Goal: Signs and Symptoms of Listed Potential Problems Will be Absent, Minimized or Managed (Cardiac:Heart Failure) Signs and symptoms of listed potential problems will be absent, minimized or managed by discharge/transition of care (reference Cardiac: Heart Failure (Adult) CPG). Outcome: Ongoing (Interventions Implemented as Appropriate) 09/15/17 0540 Cardiac: Heart Failure Problems Assessed (Heart Failure) all Problems Present (Heart Failure) fluid/electrolyte imbalance;sleep-disordered breathing Problem: Cardiac: ACS (Acute Coronary Syndrome) (Adult) Intervention: Optimize Myocardial Oxygenation/Perfusion 09/15/17 0539 09/15/17 0540 Respiratory Interventions Airway/Ventilation Management -- airway patency maintained Activity Activity Type activity adjusted per tolerance -- Intervention: Prevent/Manage Thrombi/Emboli 09/15/17 0151 09/15/17 0539 09/15/17 0540 Safety Interventions Bleeding Precautions -- -- monitored for signs of bleeding Support Surgical/Anesthesia Recovery VTE Prevention/Management AROM (active range of motion) performed -- -- Activity Activity Type -- activity adjusted per tolerance -- Intervention: Support Psychosocial Response to Life-changing Event/Hospitalization 09/13/1781409/13/17195109/14/172022 Coping Strategies Supportive Measures -- -- active listening utilized Family/Support System Care -- self-care encouraged -- Coping/Psychosocial Interventions Environmental Support rest periods encouraged -- -- Intervention: Monitor/Manage Fluid Balance 09/13/17 0815 09/15/17 0539 Safety Interventions Medication Review/Management -- medications reviewed Positioning Head of Bed (HOB) HOB at 30 degrees -- Goal: Signs and Symptoms of Listed Potential Problems Will be Absent, Minimized or Managed (Cardiac:ACS) Signs and symptoms of listed potential problems will be absent, minimized or managed by discharge/transition of care (reference Cardiac: ACS (Acute Coronary Syndrome) (Adult) CPG). Outcome: Ongoing (Interventions Implemented as Appropriate) 09/15/17 0540 Cardiac: ACS (Acute Coronary Syndrome) Problems Assessed (Acute Coronary Syndrome (ACS)) all Problems Present (Acute Coronary Syndrome (ACS)) none Plan of Care - Zachery Gaspar RN - 09/14/2017 1:42 PM EST Problem: Patient Care Overview Goal: Plan of Care Review Outcome: Ongoing (Interventions Implemented as Appropriate) 09/13/17 1838 09/13/171951 Plan of Care Review Progress progress toward functional goals as expected -- Coping/Psychosocial Plan Of Care Reviewed With -- patient OUTCOME EVALUATION NOTE: OUTCOME SUMMARY: Patient admitted with decompensated heart failure and positive troponins has been diuresed on torsemide. PLAN MOVING FORWARD: Patient to have cardiac cath today to evaluate coronary arteries. cpnt to monitor INDIVIDUALIZED FALL PREVENTION INTERVENTIONS: Patient-specific fall risk factors per assessment: [current deficits]: decond Assistance [level of assistance required for transfers and ambulation]: standby Supervision [direct monitoring required during toileting and ADLs]: Call vanegas Surveillance [continuous indirect monitoring]: Hourly rounds Patient-specific fall prevention interventions for sensory deficits provided, if applicable: CPG GOAL OUTCOME EVALUATION: Goal: Individualization & Mutuality Outcome: Ongoing (Interventions Implemented as Appropriate) 09/11/17 0000 Mutuality/Individual Preferences What Anxieties, Fears or Concerns Do You Have About Your Health or Care? Nothing specified What Questions Do You Have About Your Health or Care? Nothing specified What Information Would Help Us Give You More Personalized Care? Nothing specified Goal: Infection Control Outcome: Ongoing (Interventions Implemented as Appropriate) 09/13/171951 Safety Interventions Isolation Precautions standard precautions maintained Infection Prevention environmental surveillance performed Coping Strategies Supportive Measures active listening utilized;verbalization of feelings encouraged Goal: Discharge Needs Assessment Outcome: Ongoing (Interventions Implemented as Appropriate) 09/13/171837 Discharge Needs Assessment Concerns To Be Addressed no discharge needs identified Readmission Within The Last 30 Days no previous admission in last 30 days Activity/Self Care Review of Systems Equipment Currently Used at Home oxygen Living Environment Transportation Available car;family or friend will provide Goal: Interdisciplinary Rounds/Family Conf Outcome: Ongoing (Interventions Implemented as Appropriate) 09/13/171837 Interdisciplinary Rounds/Family Conf Participants patient Problem: Cardiac: Heart Failure (Adult) Goal: Signs and Symptoms of Listed Potential Problems Will be Absent, Minimized or Managed (Cardiac:Heart Failure) Signs and symptoms of listed potential problems will be absent, minimized or managed by discharge/transition of care (reference Cardiac: Heart Failure (Adult) CPG). Outcome: Ongoing (Interventions Implemented as Appropriate) 09/14/17316 Cardiac: Heart Failure Problems Assessed (Heart Failure) all Problems Present (Heart Failure) respiratory compromise;sleep-disordered breathing;fluid/electrolyteimbalance Problem: Cardiac: ACS (Acute Coronary Syndrome) (Adult) Goal: Signs and Symptoms of Listed Potential Problems Will be Absent, Minimized or Managed (Cardiac:ACS) Signs and symptoms of listed potential problems will be absent, minimized or managed by discharge/transition of care (reference Cardiac: ACS (Acute Coronary Syndrome) (Adult) CPG). Outcome: Ongoing (Interventions Implemented as Appropriate) 09/14/17316 Cardiac: ACS (Acute Coronary Syndrome) Problems Assessed (Acute Coronary Syndrome (ACS)) all Problems Present (Acute Coronary Syndrome (ACS)) situational response Plan of Care - Cherry Nguyễn RN - 09/14/2017 3:22 AM EST Problem: Patient Care Overview Goal: Plan of Care Review 09/13/17183709/13/171951 Plan of Care Review Progress progress toward functional goals as expected -- Coping/Psychosocial Plan Of Care Reviewed With -- patient OUTCOME EVALUATION NOTE: OUTCOME SUMMARY: Pt had uneventful night. Denies pain. C/o CURIEL, including with ambulation from chair to bed. Heparin gtt maintained per protocol. Pre cath fluids confirmed with MD. 3L NC overnight while asleep. SB/SR on tele, VSS, will cont to monitor. PLAN MOVING FORWARD: cath INDIVIDUALIZED FALL PREVENTION INTERVENTIONS: Patient-specific fall risk factors per assessment: [current deficits]: Generalized weakness, PIV Assistance [level of assistance required for transfers and ambulation]: sba/ind Supervision [direct monitoring required during toileting and ADLs]: Rings appropriatly Surveillance [continuous indirect monitoring]: Tele, purposeful rounding, call vanegas in reach Patient-specific fall prevention interventions for sensory deficits provided, if applicable: CPG GOAL OUTCOME EVALUATION: Goal: Infection Control 09/13/171951 Safety Interventions Isolation Precautions standard precautions maintained Infection Prevention environmental surveillance performed Coping Strategies Supportive Measures active listening utilized;verbalization of feelings encouraged Problem: Cardiac: Heart Failure (Adult) Goal: Signs and Symptoms of Listed Potential Problems Will be Absent, Minimized or Managed (Cardiac:Heart Failure) Signs and symptoms of listed potential problems will be absent, minimized or managed by discharge/transition of care (reference Cardiac: Heart Failure (Adult) CPG). 09/14/17316 Cardiac: Heart Failure Problems Assessed (Heart Failure) all Problems Present (Heart Failure) respiratory compromise;sleep-disordered breathing;fluid/electrolyteimbalance Problem: Cardiac: ACS (Acute Coronary Syndrome) (Adult) Goal: Signs and Symptoms of Listed Potential Problems Will be Absent, Minimized or Managed (Cardiac:ACS) Signs and symptoms of listed potential problems will be absent, minimized or managed by discharge/transition of care (reference Cardiac: ACS (Acute Coronary Syndrome) (Adult) CPG). 09/14/17316 Cardiac: ACS (Acute Coronary Syndrome) Problems Assessed (Acute Coronary Syndrome (ACS)) all Problems Present (Acute Coronary Syndrome (ACS)) situational response Plan of Care - Loreto Bunch RN - 09/13/2017 6:53 PM EST Problem: Patient Care Overview Goal: Plan of Care Review 09/13/17 5815 Plan of Care Review Progress progress toward functional goals as expected Coping/Psychosocial Plan Of Care Reviewed With patient OUTCOME EVALUATION NOTE: OUTCOME SUMMARY: This patients skin remains intact at this time with no reddened areas. Pt currently repositioning self in bed every 2 hrs. Pt verbalizes understanding to reposition self every 2 hrs to prevent skin breakdown and alert nurse when help is needed to do so. Will continue to monitor. This patient reports that his neuropathy pain is adequately managed with the ordered medication regiment. This patient denies chest pain, shortness of breath, and nausea. Darren had a good day today, was on 1 L NC for a little bit in the AM but has tolerated RA since the afternoon. He will be NPO at midnight for R & L catheterization in the AM. Had to Increase his Heparin gtt twice today, it is now running at 1950 units/hr. Started him on Torsemide 60 mg PO for diuresing purposes. K is 3.7. Darren had a 2.92 sec pause around 1730, Team notified. 40 meq of K was ordered to cover him over night. Pt reported that he felt light headed and hazy But has since resolved. See tele sheet. Will continue to monitor. Last recorded vital signs: Last value Temperature Temp: 36.5 ??C (97.7 ??F) Heart Rate Heart Rate: 61 Blood Pressure BP: 101/50 Respiratory Rate Resp: 16 SpO2 SpO2: 96 % Recorded I/O: I/O this shift: In: 1550.6 [P.O.:1190; I.V.:360.6] Out: 1725 [Urine:1725] PLAN MOVING FORWARD: The plan moving forward is to go to lab specialist in the am and he plans to be discharged on Thursday. INDIVIDUALIZED FALL PREVENTION INTERVENTIONS: Patient-specific fall risk factors per assessment: [current deficits]: This patient has decreased mobility and sensory impairment in relation to neuropathy Assistance [level of assistance required for transfers and ambulation]: This patient requires stand by assist and a to ambulate. Supervision [direct monitoring required during toileting and ADLs]: This patient requires minimal assist with ADLs. Surveillance [continuous indirect monitoring]: Benoit, nursing knowledge exchange, purposeful rounding. Patient has history of: Past Medical History: Diagnosis Date ??? ASCVD (arteriosclerotic cardiovascular disease) ??? Diabetes mellitus with neuropathy ??? Hypertension ??? Ischemic cardiomyopathy 09/16/2008 ??? Neuropathic pain 12/17/2011 ??? NSTEMI (non-ST elevated myocardial infarction) 09/12/2008 ??? Shortness of breath 05/03/2012 Past Surgical History: Procedure Laterality Date ??? CORONARY ARTERY BYPASS GRAFT 08/2008 Patient has following SCHEDULED medications: ??? torsemide 60 mg Oral BID ??? clopidogrel 75 mg Oral Daily ??? docusate sodium 100 mg Oral BID ??? sodium chloride 0.9 % 5 mL Intravenous BID ??? sodium chloride 0.9 % 5 mL Intravenous Q12H ??? allopurinol 100 mg Oral Daily ??? aspirin 81 mg Oral Daily ??? atorvastatin 80 mg Oral QPM ??? budesonide-formoterol 2 Inhalation Inhalation BID ??? buPROPion 100 mg Oral QAM ??? carvedilol 6.25 mg Oral BID WC ??? DULoxetine 60 mg Oral BID ??? felodipine 5 mg Oral QAM ??? isosorbide mononitrate 120 mg Oral Daily ??? losartan 50 mg Oral Daily ??? spironolactone 25 mg Oral Daily ??? terazosin 4 mg Oral Nightly ??? tiotropium 18 mcg Inhalation Daily ??? insulin lispro 3-12 Units Subcutaneous Q4H MAUREEN ??? insulin glargine 30 Units Subcutaneous QAM Patient has following PRN medications: heparin (porcine) AND heparin (porcine), sodium chloride 0.9 %, nitroGLYcerin, sodium chloride 0.9 %, lidocaine, oxyCODONE-acetaminophen, traZODone, ipratropium-albuterol, dextrose 50% OR glucagon (human recombinant) CPG GOAL OUTCOME EVALUATION: Goal: Infection Control 09/13/178 Safety Interventions Isolation Precautions standard precautions maintained Infection Prevention rest/sleep promoted Coping Strategies Supportive Measures active listening utilized;decision-making supported;positive reinforcement provided;relaxation techniques promoted;self-care encouraged Goal: Discharge Needs Assessment Outcome: Ongoing (Interventions Implemented as Appropriate) 09/13/178 Discharge Needs Assessment Concerns To Be Addressed no discharge needs identified Readmission Within The Last 30 Days no previous admission in last 30 days Activity/Self Care Review of Systems Equipment Currently Used at Home oxygen Living Environment Transportation Available car;family or friend will provide Goal: Interdisciplinary Rounds/Family Conf Outcome: Ongoing (Interventions Implemented as Appropriate) 09/13/178 Interdisciplinary Rounds/Family Conf Participants patient Problem: Cardiac: Heart Failure (Adult) Goal: Signs and Symptoms of Listed Potential Problems Will be Absent, Minimized or Managed (Cardiac:Heart Failure) Signs and symptoms of listed potential problems will be absent, minimized or managed by discharge/transition of care (reference Cardiac: Heart Failure (Adult) CPG). Outcome: Ongoing (Interventions Implemented as Appropriate) 09/13/17 1838 Cardiac: Heart Failure Problems Assessed (Heart Failure) all Problems Present (Heart Failure) dysrhythmia/arrhythmia;fluid/electrolyte imbalance;respiratory compromise;sleep-disordered breathing Plan of Care - Cherry Nguyễn RN - 09/13/2017 3:04 AM EST Problem: Patient Care Overview Goal: Plan of Care Review 09/11/178 09/12/171942 Plan of Care Review Progress progress toward functional goals as expected -- Coping/Psychosocial Plan Of Care Reviewed With -- patient OUTCOME EVALUATION NOTE: OUTCOME SUMMARY: Pt had uneventful night. Denies SOB or pain, some CURIEL while ambulating. Heparin gtt maintained per protocol. SB on tele, VSS, 2L NC overnight. Slept between care, will cont to monitor. PLAN MOVING FORWARD: Cath mon INDIVIDUALIZED FALL PREVENTION INTERVENTIONS: Patient-specific fall risk factors per assessment: [current deficits]: PIV, generalized weakness Assistance [level of assistance required for transfers and ambulation]: Sba/ind Supervision [direct monitoring required during toileting and ADLs]: Rings appropriatly Surveillance [continuous indirect monitoring]: Tele, purposeful rounding, call vanegas in reach Patient-specific fall prevention interventions for sensory deficits provided, if applicable: CPG GOAL OUTCOME EVALUATION: Problem: Cardiac: Heart Failure (Adult) Goal: Signs and Symptoms of Listed Potential Problems Will be Absent, Minimized or Managed (Cardiac:Heart Failure) Signs and symptoms of listed potential problems will be absent, minimized or managed by discharge/transition of care (reference Cardiac: Heart Failure (Adult) CPG). 09/11/17 0058 Cardiac: Heart Failure Problems Assessed (Heart Failure) all Problems Present (Heart Failure) fluid/electrolyte imbalance;functional decline/self-care deficit;respiratory compromise;situational response Plan of Care - Jacy Samuels RN - 09/12/2017 3:19 AM EST Problem: Patient Care Overview Goal: Plan of Care Review Outcome: Ongoing (Interventions Implemented as Appropriate) 09/11/175709/11/172039 Plan of Care Review Progress progress toward functional goals as expected -- Coping/Psychosocial Plan Of Care Reviewed With -- patient OUTCOME EVALUATION NOTE: OUTCOME SUMMARY: Patient had incident of CP, resolved with nitro x 2 and short period of time. See accompanied note for more details Patient given 80mg IV lasix and has been diuresed overnight for large urine output. Labs and ECG monitored overnight. Patient currently improved and stable, VS are within acceptable limits. PLAN MOVING FORWARD: Continue to monitor labs, diurese as patient tolerates. INDIVIDUALIZED FALL PREVENTION INTERVENTIONS: Patient-specific fall risk factors per assessment: [current deficits]: Weakness. Assistance [level of assistance required for transfers and ambulation]: Patient is one assist out ofbed. Supervision [direct monitoring required during toileting and ADLs]: Patient may be left unsupervisedand requires assistance from staff with some ADLs. Surveillance [continuous indirect monitoring]: Purposeful rounding and cardiac monitoring and continuous pulse oximetry. Patient-specific fall prevention interventions for sensory deficits provided, if applicable: [X] N/A CPG GOAL OUTCOME EVALUATION: Goal: Individualization & Mutuality Outcome: Ongoing (Interventions Implemented as Appropriate) 09/11/17 0000 Mutuality/Individual Preferences What Anxieties, Fears or Concerns Do You Have About Your Health or Care? Nothing specified What Questions Do You Have About Your Health or Care? Nothing specified What Information Would Help Us Give You More Personalized Care? Nothing specified Goal: Infection Control Outcome: Ongoing (Interventions Implemented as Appropriate) 09/11/172039 Safety Interventions Isolation Precautions standard precautions maintained Infection Prevention rest/sleep promoted Coping Strategies Supportive Measures active listening utilized;goal setting facilitated;self-care encouraged;verbalization of feelings encouraged Goal: Discharge Needs Assessment Outcome: Ongoing (Interventions Implemented as Appropriate) 09/11/17 0000 09/11/1757 Discharge Needs Assessment Concerns To Be Addressed -- no discharge needs identified Readmission Within The Last 30 Days -- no previous admission in last 30 days Activity/Self Care Review of Systems Equipment Currently Used at Home oxygen -- Living Environment Transportation Available car;family or friend will provide -- Goal: Interdisciplinary Rounds/Family Conf Outcome: Ongoing (Interventions Implemented as Appropriate) 11/17/17 0058 Interdisciplinary Rounds/Family Conf Participants patient;physician;nursing Problem: Cardiac: Heart Failure (Adult) Goal: Signs and Symptoms of Listed Potential Problems Will be Absent, Minimized or Managed (Cardiac:Heart Failure) Signs and symptoms of listed potential problems will be absent, minimized or managed by discharge/transition of care (reference Cardiac: Heart Failure (Adult) CPG). Outcome: Ongoing (Interventions Implemented as Appropriate) 09/11/1757 Cardiac: Heart Failure Problems Assessed (Heart Failure) all Problems Present (Heart Failure) fluid/electrolyte imbalance;functional decline/self-care deficit;respiratory compromise;situational response Initial Assessments - Benjamin Mackenzie MSW - 09/11/2017 3:24 PM EST Office of Care Management Initial Assessment ELZBIETA Cardona reviewed record and discussed patient with Care Team. Source of Information: patient Introduced self/reviewed role; services accepted. Reason for Hospitalization: Reason for Admission as Stated by Patient: Patient states shortness of breath with even simple daily actiivties called EMS. Past Medical History: Diagnosis Date ??? ASCVD (arteriosclerotic cardiovascular disease) ??? Diabetes mellitus with neuropathy ??? Hypertension ??? Ischemic cardiomyopathy 09/16/2008 ??? Neuropathic pain 12/17/2011 ??? NSTEMI (non-ST elevated myocardial infarction) 09/12/2008 ??? Shortness of breath 05/03/2012 Hospitalizations Within the Past 30 Days: none Anticipated Length Of Stay (If known): Expected Length of Hospitalization: 3 Current Decision-Making Capacity: alert and oriented Advance Care Planning: not on file Current Coping/Education/Information Needs: Doing well. Optimistic that he will improve Current Functional Ability: independent but fatigues easily Functional Status Prior to Admission: indepedent Home Environment: Lives with in [place], [place] Social & Family Supports/Community Resources: 4 adult step children. All live nearby and are supportive Behavioral Health History: none Substance Use/Abuse: n/a Other Pertinent/Service Specific Information: Has O2 at home. Health/Prescription Coverage: Primary Insurance: [employer] Secondary Insurance: MEDICARE Prescription Coverage: yes Preferred Pharmacy: [place] Other: none Primary Care Provider: Edil Schmidt, [employer] [phone] Patient/Caregiver Goals of Treatment: home when stable Potential Needs for Transition of Care: Rehab/SNF: none Home Health: has VNA services DME: O2 through [employer] Dialysis: none Community Resources: none Transportation: family Other: none Anticipated Barriers to Discharge/Special Considerations: none Plan: home when stable. A member of the Care Management team will continue to monitor progress, follow for continuity of care and assist with transition of care planning. ELZBIETA Cardona Pager: [phone] Plan of Care - Jacy Samuels RN - 09/11/2017 2:12 AM EST Problem: Patient Care Overview Goal: Plan of Care Review Outcome: Ongoing (Interventions Implemented as Appropriate) 09/10/175 09/11/17 0058 Plan of Care Review Progress -- progress toward functional goals as expected Coping/Psychosocial Plan Of Care Reviewed With patient -- OUTCOME EVALUATION NOTE: OUTCOME SUMMARY: Patient arrived to unit at change of shift from O[facility]. Patient found to have some CURIEL, on oxygen 3LNC.Based on assessment and labs patient given an 80mg IV lasix dose. Patient responding well to diuresis with good urine output. Labs, EKG and Xray are unremarkable at this time. Patient is otherwise stable, states feeling less SOB since starting diuresis, VS are within acceptable limits. PLAN MOVING FORWARD: Continue to diuresis patient, monitor on telemetry, labs. INDIVIDUALIZED FALL PREVENTION INTERVENTIONS: Patient-specific fall risk factors per assessment: [current deficits]: Weakness. Assistance [level of assistance required for transfers and ambulation]: Patient is one assist when out of bed. Supervision [direct monitoring required during toileting and ADLs]: Patient may be left unsuperviseduses call light appropriately. Surveillance [continuous indirect monitoring]: Purposeful rounding, cardiac monitoring, continuous pulse oximetry. Patient-specific fall prevention interventions for sensory deficits provided, if applicable: [X] N/A CPG GOAL OUTCOME EVALUATION: Goal: Individualization & Mutuality Outcome: Ongoing (Interventions Implemented as Appropriate) 09/11/17 0000 Mutuality/Individual Preferences What Anxieties, Fears or Concerns Do You Have About Your Health or Care? Nothing specified What Questions Do You Have About Your Health or Care? Nothing specified What Information Would Help Us Give You More Personalized Care? Nothing specified Goal: Fall Prevention-Safe Patient Handling Outcome: Outcome (s) achieved Date Met: 09/11/17 09/10/172114 Gorman Fall Risk History of Falling 0 Secondary Diagnosis 0 Ambulatory Aids 0 Intravenous Therapy/Heparin/Saline Lock 20 Gait/Transferring 10 Mental Status 0 Score 30 OTHER Gorman Fall Risk Med Restraint Interventions Safety Promotion/Fall Prevention activity supervised;safety round/check completed;toileting scheduled Positioning Body Position independent;supine Goal: Infection Control Outcome: Ongoing (Interventions Implemented as Appropriate) 09/10/172114 Safety Interventions Isolation Precautions standard precautions maintained Infection Prevention rest/sleep promoted Coping Strategies Supportive Measures verbalization of feelings encouraged;goal setting facilitated;problem solving facilitated;positive reinforcement provided;active listening utilized Goal: Discharge Needs Assessment Outcome: Ongoing (Interventions Implemented as Appropriate) 09/11/1757 Discharge Needs Assessment Concerns To Be Addressed no discharge needs identified Readmission Within The Last 30 Days no previous admission in last 30 days Goal: Interdisciplinary Rounds/Family Conf Outcome: Ongoing (Interventions Implemented as Appropriate) 09/11/1757 Interdisciplinary Rounds/Family Conf Participants patient;physician;nursing Problem: Cardiac: Heart Failure (Adult) Goal: Signs and Symptoms of Listed Potential Problems Will be Absent, Minimized or Managed (Cardiac:Heart Failure) Signs and symptoms of listed potential problems will be absent, minimized or managed by discharge/transition of care (reference Cardiac: Heart Failure (Adult) CPG). Outcome: Ongoing (Interventions Implemented as Appropriate) 09/11/1757 Cardiac: Heart Failure Problems Assessed (Heart Failure) all Problems Present (Heart Failure) fluid/electrolyte imbalance;functional decline/self-care deficit;respiratory compromise;situational response documented in this encounter Plan of Treatment Not on filedocumented as of this encounter Procedures Procedure Name Priority Date/Time Associated Diagnosis Comme nts QUALITY DIRECTOR SCAN 09/16/2017 12:00 Res ults for this AM EST procedure are i n the results section. POCT GLUCOSE Routine 09/15/2017 12:18 Results for this PM EST procedure are i n the results section. POCT GLUCOSE Routine 09/15/2017 11:30 Results for this AM EST procedure are i n the results section. POCT GLUCOSE Routine 09/15/2017 6:56 Results for this AM EST procedure are i n the results section. HEMOGRAM Routine 09/15/2017 5:31 Results for this AM EST procedure are i n the results section. DIFFERENTIAL, AUTOMATED Routine 09/15/2017 5:31 R esults for this AM EST procedure are i n the results section. CBC (WITH DIFF) Routine 09/15/2017 5:31 AM EST MAGNESIUM Routine 09/15/2017 5:31 Results for this AM EST procedure are i n the results section. BASIC METABOLIC PANEL Routine 09/15/2017 5:31 Res ults for this (NON-FASTING) AM EST procedure are in the results section. POCT GLUCOSE Routine 09/15/2017 4:07 Results for this AM EST procedure are i n the results section. POCT GLUCOSE Routine 09/15/2017 12:00 Results for this AM EST procedure are i n the results section. CARDIAC ENZYMES Timed 09/14/2017 8:34 [place] f [place] [place] EST procedure are i n the results section. POCT GLUCOSE Routine 09/14/2017 8:22 Results for this PM EST procedure are i n the results section. EKG 12-LEAD Routine 09/14/2017 5:44 ASCVD Results for this PM EST (arteriosclerotic procedure are in cardiovascular the results disease) section. POCT GLUCOSE Routine 09/14/2017 5:29 Results for this PM EST procedure are i n the results section. CARDIAC CATHETERIZATION Routine 09/14/2017 5:10 R esults for this PM EST procedure are i n the results section. POCT GLUCOSE Routine 09/14/2017 11:00 Results for this AM EST procedure are i n the results section. POCT GLUCOSE Routine 09/14/2017 7:36 Results for this AM EST procedure are i n the results section. POCT GLUCOSE Routine 09/14/2017 4:07 Results for this AM EST procedure are i n the results section. HEMOGRAM Routine 09/14/2017 4:02 Results for this AM EST procedure are i n the results section. DIFFERENTIAL, AUTOMATED Routine 09/14/2017 4:02 R esults for this AM EST procedure are i n the results section. APTT STAT 09/14/2017 4:02 Results for this AM EST procedure are i n the results section. CBC (WITH DIFF) Routine 09/14/2017 4:02 AM EST MAGNESIUM Routine 09/14/2017 4:02 Results for this AM EST procedure are i n the results section. BASIC METABOLIC PANEL Routine 09/14/2017 4:02 Res ults for this (NON-FASTING) AM EST procedure are in the results section. POCT GLUCOSE Routine 09/13/2017 11:54 Results for this PM EST procedure are i n the results section. APTT STAT 09/13/2017 9:48 Results for this PM EST procedure are i n the results section. POCT GLUCOSE Routine 09/13/2017 8:12 Results for this PM EST procedure are i n the results section. POCT GLUCOSE Routine 09/13/2017 5:20 Results for this PM EST procedure are i n the results section. APTT STAT 09/13/2017 3:10 Results for this PM EST procedure are i n the results section. POCT GLUCOSE Routine 09/13/2017 11:27 Results for this AM EST procedure are i n the results section. POCT GLUCOSE Routine 09/13/2017 8:10 Results for this AM EST procedure are i n the results section. APTT Timed 09/13/2017 7:33 Results for this AM EST procedure are i n the results section. POCT GLUCOSE Routine 09/13/2017 3:50 Results for this AM EST procedure are i n the results section. HEMOGRAM Routine 09/13/2017 1:20 Results for this AM EST procedure are i n the results section. DIFFERENTIAL, AUTOMATED Routine 09/13/2017 1:20 R esults for this AM EST procedure are i n the results section. APTT STAT 09/13/2017 1:20 Results for this AM EST procedure are i n the results section. CBC (WITH DIFF) Routine 09/13/2017 1:20 AM EST MAGNESIUM Routine 09/13/2017 1:20 Results for this AM EST procedure are i n the results section. BASIC METABOLIC PANEL Routine 09/13/2017 1:20 Res ults for this (NON-FASTING) AM EST procedure are in the results section. CARDIAC CATH SCAN 09/13/2017 12:00 Result s for this AM EST procedure are i n the results section. POCT GLUCOSE Routine 09/12/2017 11:16 Results for this PM EST procedure are i n the results section. POCT GLUCOSE Routine 09/12/2017 7:41 Results for this PM EST procedure are i n the results section. APTT STAT 09/12/2017 5:47 Results for this PM EST procedure are i n the results section. POCT GLUCOSE Routine 09/12/2017 3:33 Results for this PM EST procedure are i n the results section. CARDIAC ENZYMES Routine 09/12/2017 1:34 Results f or this ([facility]) PM EST procedure are i n the results section. POCT GLUCOSE Routine 09/12/2017 12:08 Results for this PM EST procedure are i n the results section. APTT STAT 09/12/2017 11:01 Results for this AM EST procedure are i n the results section. POCT GLUCOSE Routine 09/12/2017 7:41 Results for this AM EST procedure are i n the results section. HEMOGRAM Routine 09/12/2017 6:02 Results for this AM EST procedure are i n the results section. DIFFERENTIAL, AUTOMATED Routine 09/12/2017 6:02 R esults for this AM EST procedure are i n the results section. CARDIAC ENZYMES Routine 09/12/2017 6:02 Results f or this [place] AM EST procedure are i n the results section. CBC (WITH DIFF) Routine 09/12/2017 6:02 AM EST MAGNESIUM Routine 09/12/2017 6:02 Results for this AM EST procedure are i n the results section. BASIC METABOLIC PANEL Routine 09/12/2017 6:02 Res ults for this (NON-FASTING) AM EST procedure are in the results section. POCT GLUCOSE Routine 09/12/2017 3:53 Results for this AM EST procedure are i n the results section. CARDIAC ENZYMES Routine 09/12/2017 12:20 Results for this ([facility] AM EST procedure are i n the results section. POCT GLUCOSE Routine 09/11/2017 11:43 Results for this PM EST procedure are i n the results section. EKG 12-LEAD STAT 09/11/2017 11:25 Heart failure, Results f or this PM EST unspecified heart procedure are in failure chronicity, the resu lts unspecified heart section. failure type POCT GLUCOSE Routine 09/11/2017 8:08 Results for this PM EST procedure are i n the results section. CARDIAC ENZYMES Routine 09/11/2017 4:53 Results f or this ([facility]) PM EST procedure are i n the results section. POCT GLUCOSE Routine 09/11/2017 4:30 Results for this PM EST procedure are i n the results section. ECHOCARDIOGRAM COMPLETE Routine 09/11/2017 11:45 Heart failure , Results for this W CONTRAST AM EST unspecified heart procedure are in failure chronicity, the resu lts unspecified heart section. failure type POCT GLUCOSE Routine 09/11/2017 11:45 Results for this AM EST procedure are i n the results section. CARDIAC ENZYMES Routine 09/11/2017 10:46 Results for this ([facility] AM EST procedure are i n the results section. POCT GLUCOSE Routine 09/11/2017 7:32 Results for this AM EST procedure are i n the results section. LAVENDER TUBE HOLD Routine 09/11/2017 5:05 Result s for this AM EST procedure are i n the results section. CARDIAC ENZYMES Routine 09/11/2017 5:05 Results f or this ([facility] AM EST procedure are i n the results section. BASIC METABOLIC PANEL Routine 09/11/2017 5:05 Res ults for this (NON-FASTING) AM EST procedure are in the results section. POCT GLUCOSE Routine 09/11/2017 5:04 Results for this AM EST procedure are i n the results section. POCT GLUCOSE Routine 09/11/2017 12:49 Results for this AM EST procedure are i n the results section. EKG 12-LEAD STAT 09/11/2017 12:27 Heart failure, Results f or this AM EST unspecified heart procedure are in failure chronicity, the resu lts unspecified heart section. failure type XR CHEST PA AND LATERAL Routine 09/10/2017 11:53 Results for this PM EST procedure are i n the results section. HEMOGRAM STAT 09/10/2017 9:10 Results for this PM EST procedure are i n the results section. DIFFERENTIAL, AUTOMATED STAT 09/10/2017 9:10 R esults for this PM EST procedure are i n the results section. CARDIAC ENZYMES Routine 09/10/2017 9:10 Results f or this ([facility] PM EST procedure are i n the results section. CBC (WITH DIFF) STAT 09/10/2017 9:10 PM EST TSH Routine 09/10/2017 9:10 Results for this PM EST procedure are i n the results section. PRO-BRAIN NATRIURETIC Routine 09/10/2017 9:10 Res ults for this PEPTIDE PM EST procedure are i n the results section. MAGNESIUM Routine 09/10/2017 9:10 Results for this PM EST procedure are i n the results section. LDL CHOLESTEROL, DIRECT Routine 09/10/2017 9:10 R esults for this PM EST procedure are i n the results section. HDL/CHOL PROFILE Routine 09/10/2017 9:10 Results for this PM EST procedure are i n the results section. HEMOGLOBIN A1C Routine 09/10/2017 9:10 Results fo r this PM EST procedure are i n the results section. COMPREHENSIVE METABOLIC STAT 09/10/2017 9:10 R esults for this PANEL (NON-FASTING) PM EST procedur e are in the results section. documented in this encounter Results SCAN DOC: QUALITY DIRECTOR (09/16/2017 12:00 AM EST) Narrative 09/16/2017 12:00 AM EST This result has an attachment that is no t available. Ordered by an unspecified provider. Scanning Provider MEDIA MGR SCAN EXT ORDR/RSLT POCT Glucose (09/15/2017 12:18 PM EST) athologist Signature POC Glucose 182 65 - 199 [facility]dL [facility] Comment: Supplemental ranges: <140 mg/dL before meals <180 mg/dL all other times of the day Specimen Anatomical Collection Method Collection Time Receive d Time (Source) Location / / Volume Laterality Blood specimen 09/15/2017 12:18 7 (specimen) PM EST 12:18 PM EST Karyn Soliz MD POINT OF CARE TEST ORDERABLE S Performing Organization Address City/[facility]/ZIP Code Phon e Number [address] POCT Glucose (09/15/2017 11:30 AM EST) P athologist Signature POC Glucose 187 65 - 199 [facility] mg/dL [facility] Comment: Supplemental ranges: <140 mg/dL before meals <180 mg/dL all other times of the day Specimen Anatomical Collection Method Collection Time Receive d Time (Source) Location / / Volume Laterality Blood specimen 09/15/2017 11:30 7 (specimen) AM EST 11:30 AM EST Karyn Soliz MD POINT OF CARE TEST ORDERABLE S Performing Organization Address City/[facility]/ZIP Code Phon e Number [address] POCT Glucose (09/15/2017 6:56 AM EST) P athologist Signature POC Glucose 102 65 - 199 [facility] mg/dL [facility] Comment: Supplemental ranges: <140 mg/dL before meals <180 mg/dL all other times of the day Specimen Anatomical Collection Method Collection Time Receive d Time (Source) Location / / Volume Laterality Blood specimen 09/15/2017 6:56 AM 017 6:56 (specimen) EST AM EST Karyn Soliz MD POINT OF CARE TEST ORDERABLE S Performing Organization Address City/State/ZIP Code Phon e Number [address] (ABNORMAL) Differential, Automated (09/15/2017 5:31 AM EST) Patholo gist Method Time Signature Neutrophils % 75.0 % [facility] Neutr Abs (ANC) 7.96 (H) 1.70 - [facility] 6.10 [facility] x10(3[facility] LABORATORY Lymphocytes % 11.3 % [facility] Lymphocytes Abs 1.2 0.9 - 3.2 [facility] x10(3)/[facility] LABORATORY Monocytes % 11.3 % [facility] Monocyte Abs 1.2 (H) 0.3 - 0.9 [facility] x10(3)/[facility] LABORATORY Eosinophils % 1.4 % [facility] Eosinophils Abs 0.2 0.0 - 0.4 [facility] x10(3)/[facility] LABORATORY Basophils % 0.6 % [facility] Basophils Abs 0.1 0.0 - 0.1 [facility] x10(3)/[facility] LABORATORY Immature Gran % 0.40 % [facility] Comment: Immature granulocytes(IG's)percentage an d absolute count will include metamyelocytes, myelocytes, and promyelo cytes. Blood smears from CBCs yielding IG's will be scanned manually for concor dance. If this scan disagrees with the automated IG or if promyelocytes are not ed, a manual differential will be performed. Kayla Gran Abs 0.04 0.00 - 0.04 x10(3)/[facility] MAR Y [facility]ORY Specimen Anatomical Collection Method Collection Time Receive d Time (Source) Location / / Volume Laterality Blood specimen 09/15/2017 5:31 AM 017 5:45 (specimen) EST AM EST Resulting Agency Comment Spec In Lab Duke Olivier MD HEMATOLOGY ORDERABLES Performing Organization Address City/State/[place] [address] (ABNORMAL) Hemogram (09/15/2017 5:31 AM EST) Analysis Performed At Patho logist Time Signature WBC 10.6 (H) 4.0 - 9.5 [facility] x10(3)/[facility] LABORATORY RBC 4.31 (L) 4.58 - [facility] 5.54 [facility] x10(6)/[facility] LABORATORY Hemoglobin 12.0 (L) 13.7 - [facility] 16.5 gm/dL [facility] Hematocrit 38.7 (L) 40.5 - [facility] 48.5 % [facility] MCV 89.8 82.9 - [facility] 93.1 [facility] LABORATORY MCH 27.8 27.5 - [facility] 32.1 pg [facility] MCHC 31.0 (L) 32.0 - [facility] 35.7 gm/dL [facility] Platelets 201 145 - 357 [facility] x10(3)/[facility] LABORATORY RDWSD 47.9 (H) 36.0 - [facility] 45.0 [facility] LABORATORY RDWCV 14.6 (H) 11.4 - [facility] 13.8 % [facility] MPV 10.3 7.6 - 12.9 [facility] LABORATORY nRBC % Auto 0.0 % [facility] nRBC Abs Auto 0.000 0.000 - [facility] 0.000 [facility] x10(3)/[facility] LABORATORY Specimen Anatomical Collection Method Collection Time Receive d Time (Source) Location / / Volume Laterality Blood specimen 09/15/2017 5:31 AM 017 5:45 (specimen) EST AM EST Resulting Agency Comment Spec In Lab Duke Olivier MD HEMATOLOGY ORDERABLES Performing Organization Address City/State/ZIP Code Phon e Number [address] Magnesium (09/15/2017 5:31 AM EST) athologist Signature Magnesium 0.88 0.69 - 1.07 [facility] mmol/L [facility] Specimen Anatomical Collection Method Collection Time Receive d Time (Source) Location / / Volume Laterality Blood specimen 09/15/2017 5:31 AM 017 5:45 (specimen) EST AM EST Resulting Agency Comment Spec In Lab Duke Olivier MD CHEMISTRY ORDERABLES Performing Organization Address City/[facility] Phon e Number [address] (ABNORMAL) Basic Metabolic Panel (non-fasting) (09/15/2017 5:31 AM EST) athologist Signature Glucose Lvl 86 65 - 199 [facility] mg/dL [facility] Comment: Diabetes: >=200 mg/dL plus symp toms BUN 38 (H) 10 - 20 mg/dL [facility] Creatinine 1.63 (H) 0.80 - 1.50 mg/dL [facility] Sodium 142 135 - 145 mmol/L [facility] Potassium 3.7 3.5 - 5.0 mmol/L [facility] Comment: Please note: ??Patients with WBC >100,00 0 may have falsely elevated Potassium levels. ??For accurate Potassium quantif ication in these patients send serum separator tube (gold top) for subsequent determinations. ??Contact the Clinical Chemistry Laboratory if there are any qu estions. Chloride 102 98 - 107 mmol/L [facility] CO2 26 22 - 31 mmol/L [facility] Anion Gap 14 5 - 15 mmol/L [facility] Calcium 8.7 8.5 - 10.5 mg/dL [facility] Estimated GFR 42 (L) >=60 [facility] Comment: The reported eGFR should be multiplied b y 1.2 for patients. The MDRD is not an appropriate measure o f renal function for patients with body mass extremes or in patients with acute kidney failure. http://ebookpie/DHnkdep http://ebookpie/DHMCnkf Specimen Anatomical Collection Method Collection Time Receive d Time (Source) Location / / Volume Laterality Blood specimen 09/15/2017 5:31 AM 017 5:45 (specimen) EST AM EST Resulting Agency Comment Spec In Lab Duke Olivier MD CHEMISTRY ORDERABLES Performing Organization Address City/[facility]/ZIP [place] [address] POCT Glucose (09/15/2017 4:07 AM EST) P athologist Signature POC Glucose 78 65 - 199 [facility] mg/dL [facility] Comment: Supplemental ranges: <140 mg/dL before meals <180 mg/dL all other times of the day Specimen Anatomical Collection Method Collection Time Receive d Time (Source) Location / / Volume Laterality Blood specimen 09/15/2017 4:07 AM 017 4:07 (specimen) EST AM EST Karyn Soliz MD POINT OF CARE TEST ORDERABLE S Performing Organization Address City/[facility]/[place] [address] (ABNORMAL) POCT Glucose (09/15/2017 12:00 AM EST) P athologist Signature POC Glucose 201 (H) 65 - 199 [facility] mg/dL [facility] Comment: Supplemental ranges: <140 mg/dL before meals <180 mg/dL all other times of the day Specimen (Source) Anatomical Collection Method Collection Time Re ceived Time Location / / Volume Laterality Blood specimen 09/15/2017 09/15/2017 12 :00 (specimen) AM EST Karyn Soliz MD POINT OF CARE TEST ORDERABLE S Performing Organization Address City/[facility]/ZIP Code Phon e Number [place] [phone] (ABNORMAL) Cardiac Enzymes (LEB/CGP) (09/14/2017 8:34 PM EST) athologist Signature Troponin-T 0.03 (H) 0.00 - GHADA VASQUEZCK 0.00 ng/mL [facility] Comment: The 99th percentile for Troponin T is le ss than 0.01 ng/mL, any detectable cTnT concentration using this assay should be considered elevated. According to the third universal definit ion of myocardial infarction the following criteria with a clinical prese ntation consistent with acute myocardial ischemia meets the diagnosis for a myocardial infarction (OR). Detection of a rise and/or fall of cTnT, with at least one value greater than the 99th percentile (> or = 0.01) and wi th at least one of the following ?? Symptoms of ischemia ?? New or presumed new significant ST-se gment-T wave (ST-T) changes or new left bundle branch block (LBBB) ?? Development of pathologic Q waves in the ECG ?? Imaging evidence of new loss of viabl e myocardium or new regional wall motion abnormality ?? Identification of an intracoronary th rombus by angiography or autopsy Samples for cTnT testing should be obtai alberto serially upon first assessment and again 3 to 6 hours later. If the clinica l suspicion is high and previous samples have been negative an additional sample may be indicated. Reference: Third [place] Definition of Myocardial Infarction. Journal of the [place] [employer] 2012;60:1581-98 CK, Total 88 0 - 200 unit/L [facility] Specimen Anatomical Collection Method Collection Time Receive d Time (Source) Location / / Volume Laterality Blood specimen 09/14/2017 8:34 PM 017 8:44 (specimen) EST PM EST Resulting Agency Comment Spec In Lab Karyn Soliz MD CHEMISTRY ORDERABLES Performing Organization Address City/State/ZIP Code Phon e Number [address] POCT Glucose (09/14/2017 8:22 PM EST) athologist Signature POC Glucose 190 65 - 199 [facility] mg/dL [facility] Comment: Supplemental ranges: <140 mg/dL before meals <180 mg/dL all other times of the day Specimen Anatomical Collection Method Collection Time Receive d Time (Source) Location / / Volume Laterality Blood specimen 09/14/2017 8:22 PM 017 8:22 (specimen) EST PM EST Karyn Soliz MD POINT OF CARE TEST ORDERABLE S Performing Organization Address City/[facility]/ZIP [facility] [place] [address] EKG 12 Lead (09/14/2017 5:44 PM EST) Component Value Ref Range Test Analysis Performed Pathologis t Method Time At Signature Ventricular rate 62 BPM MUSE SYSTEM Atrial Rate 62 BPM MUSE SYSTEM P-R Interval 160 ms MUSE SYSTEM QRS Duration 98 ms MUSE SYSTEM Q-T Interval 508 ms MUSE SYSTEM QTC Calculated 515 ms MUSE SYSTEM (Bezet) Calculated P Flatgap -5 degrees MUSE SYSTEM Calculated R Flatgap 50 degrees MUSE SYSTEM Calculated T Flatgap 49 degrees MUSE SYSTEM INTERPRETATION Normal sinus rhythm MUSE SYSTEM Nonspecific T wave abnormality Prolonged QT Abnormal ECG When compared with ECG of 11-SEP-2017 23:25, QT has lengthened Confirmed by MD ALEXX, CLOVER ([id number]) on 09/15/2017 10:03:12 AM Specimen Anatomical Collection Method Collection Time Receive d Time (Source) Location / / Volume Laterality 09/14/2017 5:44 PM 7 EST 10:03 AM EST Mariana Bruno MD ECG ORDERABLES Performing Organization Address City/[facility]/ZIP Code Phon e Number MUSE SYSTEM POCT Glucose (09/14/2017 5:29 PM EST) P athologist Signature POC Glucose 116 65 - 199 [facility] mg/dL [facility] Comment: Supplemental ranges: <140 mg/dL before meals <180 mg/dL all other times of the day Specimen Anatomical Collection Method Collection Time Receive d Time (Source) Location / / Volume Laterality Blood specimen 09/14/2017 5:29 PM 017 5:29 (specimen) EST PM EST Karyn Soliz MD POINT OF CARE TEST ORDERABLE S Performing Organization Address City/[facility]/Z[place] [address] CARDIAC CATHETERIZATION (09/14/2017 5:10 PM EST) Specimen (Source) Anatomical Location Collection Method / Collectio n Time Received Time / Laterality Volume Narrative CARDIOMAC SYSTEM - 09/14/2017 5:33 PM ES T ?[facility] ? Cardiac Cathete rization/Intervention Report ? Patient Name: Serge, Darren M. ? Procedure Date: 09/14/2017 ? A #: [id number] ? Primary Physician: Mariana Bruno ? Case #: [id number] ? File Name: [id number] ? Catheterization Order Number: [id number] ? [facility] ? Final Report [place], [place] ? Patient Name: ? Darren Contreras er ? ID#: ?[id number] ? : ?1945 ? Procedure Date: ? November 20, 20 17 ?Case #: ? [id number] ? Room: ? 5 ? Case Physician: ? Daisy Mcdonald ? Start: ?16:10 ?Fellow: ? Zac Topete M.D. ?Admission: ??09/10/2017 ?Anupama egan M.D. ? Discharge: ??09/15/2017 ? Referring Physician: ??Daisy Velasquez ? Procedures: ?* Coronary Angiography ?* Left Heart Catheterization ?* Bypass Graft Study ?* Right Heart Catheterization ?* Oximetry ?* Bypass Graft Stent Insertion ?* Access Site Angiography ? History ?Darren Valentine is a 72 year o ld man. He has hypertension, a family ?history of coronary artery dise ase and morbid obesity. The patient has a ?history of smoking. He has hype rcholesterolemia managed with lipid ?therapy. The patient has insuli n dependent diabetes mellitus. 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 The pat iejean-pierre has a prior history of coronary ?artery disease. He is status po st a remote myocardial infarction. The ?patient had a remote coronary i ntervention procedure. He has a history of ?an ejection fraction less than or equal to 35%, congestive heart failure, ?dilated cardiomyopathy, ischemi c cardiomyopathy and pulmonary ?hypertension. The patient has a history of bradycardia/heart block. He ?has mitral regurgitation. The p atient has a history of an abnormal ?echocardiogram. He also has a h istory of renal insufficiency. Prior to ?the initiation of this procedur e, the patient was designated as ASA Class ?IV. ? Patient Status at Catheterization: ?The patient presented with: non -STEMI (w/i 7 days). [place] ?[employer] angina c lass was IV. This patient was on beta ?blockers and calcium humberto blo ckers prior to the procedure. No stress or ?imaging studies were performed prior to this procedure. The status of the ?diagnostic procedure was Urgent . ? Technique: ?A 6Fr sheath was inserted in th e right femoral artery utilizing the ?Seldinger technique. A 5Fr howell th was inserted in the right femoral vein ?utilizing the Seldinger techniq ue. The mammary artery was injected ?utilizing a 5Fr SARA catheter. R ight heart catheterization was performed ?utilizing a 5Fr Balloon wedge c atheter. Aortic Root was performed with a ?5Fr SARA catheter. A 5Fr JL 4 ca theter was used to inject the left ?coronary artery. The right kaitlyn nary artery was injected utilizing a 5Fr ?JR 4 catheter. A 5Fr SARA cathet er was used to inject the bypass graft. ?Bypass graft stent insertion wa s performed and the equipment utilized ?will be described in the interv ention summary section. 3,000 units of ?heparin were administered. Intr acoronary nitroglycerin was given during ?this case. A total of 200cc of Omnipaque were opened, 130cc of Omnipaque ?were administered and 70cc of O mnipaque were wasted. Radiation: Fluoro ?time was 23.2 minutes, dose are a product was 154,993 mGYcm2 and air kerma ?was 1,814 mGY. ?The patient received the follow ing medications prior to and during the ?procedure: Aspirin (any), Clopi dogrel and Unfractionated Heparin (any). ? Hemodynamics: ?Right Heart Pressures ? Hemodynamics: ? Syst D iast ? EDP ?a ?v ? m ?RA ? 12 ?10 ? 8 ?RV 39 ?11 ?PA 45 ?20 ?28 ?PCW ?22 ?26 ?20 ? Hemodynamic Profile: ?Profile 1 ?CO ? 5.89 ?CI ? 2.61 ?TSR ? 1,087 ?SVR ?978 ?TPR ?380 ?PVR ?109 ?Techniq ue ?Estimated Jules ?Left Heart Pressures ? Resting: ? Syst D iast ? EDP ?a ?v ? m ?Ao 128 ?? 55 ?80 ? Post Contrast: ? Syst D iast ? EDP ?a ?v ? m ?Ao 122 ?? 47 ?75 ?LV 121 ? 22 ? Oximetry: ?Location ? % Sat ?Location ?%Sat ?Main Pulmonary Artery ??59.0 ?Peripheral Arterial ? 89.0 ? Coronary Angiography: ?Dominance: Right ?Left Main ? There was a 90% stenosis of the distal segment of the left main ? artery. ?Left Anterior Descending ? There was a single discr ete total occlusion of the proximal segment ? of the left anterior naomi cending artery (LAD). ?Left Circumflex ? There was an 80% single discrete stenosis of the proximal segment of ? the left circumflex tara ry (LCX). ?Right Coronary Artery ? There was mild diffuse ( <=25% stenosis) disease of the entire vessel ? segment of the right cor onary artery (RCA). ??The RCA was moderate in ? size. ? There was mild diffuse ( <=25% stenosis) disease of the entire vessel ? segment of the right pos terior descending branch (RPDA) of the RCA. ? The RPDA was moderate in size. ?Ramus ? The entire vessel segmen t of the ramus was noted. ? Bypass Grafts: ?There was a total of three bypa ss grafts evaluated during this procedure. ?1. ?? Left internal mammary art gina graft to the LAD ? There was a left interna l mammary artery graft with a single ? anastomosis to the left anterior descending artery (LAD). ? There was no evidence of obstruction in this graft. Distal flow was ? normal. ?2. ?? Saphenous vein graft to galo tay ? There was a saphenous ve in graft with a single anastomosis to the ? ramus. ? There was a severe diffu se (>=75% stenosis) disease of the proximal ? portion of the segment o f this graft between the origin of this ? graft and the ramus. ? There is a diffuse 80% l esion in the proximal portion of the graft. ?3. ?? Saphenous vein graft to t he OM1 ? There was a saphenous ve in graft with a single anastomosis to the ? first obtuse marginal br anch (OM1) of the LCX. ? There was no evidence of obstruction in this graft. Distal flow was ? normal. ? Indication for Intervention: ?Coronary intervention was indic ated for primary therapy for an acute ?myocardial infarction. Left Justo tricular Ejection fraction was not ?assessed. The priority for the procedure was Urgent. The NCDR indication ?for the procedure was PCI for h igh risk Non-STEMI or unstable angina. ?Right Heart catheterization was initiated for Congestive heart failure ?(428.0). ? Intervention Summary: ?Saphenous vein graft to the edna us ? Between the origin of th is graft and the ramus - Proximal Severe ? Diffuse (>=75% Stenosis) ? Stent insertion was performed on the severe diffuse (>=75% ? stenosis) steno sis in the proximal portion of the segment of ? this graft betw een the origin of this graft and the ramus. ? This was a de n ovo lesion. According to the ACC/AHA ? classification system, this lesion was a type C high risk ? lesion. Primary prevention of restenosis was the indication ? for stent inser tion. This was the culprit lesion. Vessel flow ? pre interventio n was JENNIFER 3. ? Stent insertion was accomplished through a 6 Fr. JR 4 guide. ? The lesion was predilated with a 2.50mm EUPHORA 15 MM balloon ? with a maximum inflation pressure of 12 atmospheres. ??A ? premounted 3.00 x 38 mm Resolute NISA (NAOMI) was deployed with ? a maximum infla tion pressure of 14 atmospheres. ??Following ? stent deploymen t, the lesion was dilated using a 3.50mm NC ? EUPHORA 20 MM b alloon with a maximum inflation pressure of 16 ? atmospheres. ? The final outco me was defined as successful. There was no ? residual stenos is following this intervention. The final JENNIFER ? flow was 3. ? Vascular Access: ?Vascular Access Angiogram: ? A selective angiogram at the right femoral artery revealed mild ? diffuse disease. ?Vascular Access Management: ? A Perclose was deployed at the right femoral artery access site. ? This device was successf ul. ? Manual Compression of th e right femoral vein access site was ? performed. ? Dual Antiplatelet (DAPT) Recommendations : ?Drug eluting stent (NAOMI) insert ed. ?P2Y12 Loading dose administered prior to arrival in the lab specialist. ?Recommend continuing clopidogre l 75 mg PO daily for 12 months. ??Recommend ?continuing aspirin 81 mg unless intolerant. ?The DAPT score is 5. ??The DAPT score calculates net clinical benefit of ?prolonged dual antiplatelet the rapy following percutaneous coronary ?intervention. A DAPT Score of e qual or greater than 2 suggests an ?increased risk of late stent th rombosis and MACCE. If the DAPT score is ?equal or greater than 2 and the patient tolerates the recommended ?duration of DAPT without bleedi ng or side effects, consider extending the ?DAPT to 30 months post procedur e. ? 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 Complications/Events: ?The patient had no complication s during these procedures. ? Comments: ?Pt presented with angina and po sitive biomarkers. ??Coronary and graft ?angiography showed severe left sided disease with patent MARTINEZ to LAD and ?SVG to OM1. ??There was severe disease in the SVG to ramus which was ?treated with a single NAOMI PCI w ith good result and normal flow. ??Right ?sided filling pressures were co nsistent with elevated PCWP with optimized ?cardiac output. ??Recommend mon itoring closely for contrast induced ?toxicity given baseline renal i nsufficiency and contrast exposure. ?The attending physician was presen t for the entire procedure. ?Dr. Mariana Bruno M.D. was present d uring the moderate sedation intraservice ?time as documented by the sedation nurse. ??Case time = 00:52. ?Dr. Mariana Bruno M.D. performed the coronary angiography, left heart ?catheterization, bypass graft stud y, right heart catheterization, oximetry, ?access site angiography and stent insertion-bypass graft. ? Mariana Bruno M.D. ? Electronically Signed by: Edgar Mcdonald ? Report Finalized: 09/14/2017 ??17:25 ? Report Last Ammended: 01/22/2018 ??10:35 ? Procedure Note Mariana Bruno MD - 01/22/2018Formatting o f this note might be different from the original. [facility] Cardiac Catheterization/Intervention Re port Patient Name: Serge Darren Edgar Procedure Date: 09/14/2017 A #: [id number] Primary Physician: Mariana Bruno Case #: [id number] File Name: [id number] Catheterization Order Number: [id number] [facility] Final Report [place], [place] Patient Name: Darren Valentine ID#: [id number] : 1945 Procedure Date: September 14, 2017 Case # : [id number] Room: 5 Case Physician: Mariana Bruno M.D. Start: 16:10 Fellow: Zac Topete M.D. Admission: Anupama Koch M.D. Discharge: 09/15/2017 Referring Physician: Edil Schmidt M.D. Procedures: * Coronary Angiography * Left Heart Catheterization * Bypass Graft Study * Right Heart Catheterization * Oximetry * Bypass Graft Stent Insertion * Access Site Angiography History Darren Valentine is a 72 year old man. He has hypertension, a family history of coronary artery disease and morbid obesity. The patient has a history of smoking. He has hypercholest erolemia managed with lipid therapy. The patient has insulin depend ent diabetes mellitus. He has sequelae from diabetes. The patient has a prior history of coronary artery disease. He is status post a rem ote myocardial infarction. The patient had a remote coronary intervent ion procedure. He has a history of an ejection fraction less than or equal to 35%, congestive heart failure, dilated cardiomyopathy, ischemic cardio myopathy and pulmonary hypertension. The patient has a history of bradycardia/heart block. He has mitral regurgitation. The patient h as a history of an abnormal echocardiogram. He also has a history o f renal insufficiency. Prior to the initiation of this procedure, the p atient was designated as ASA Class IV. Patient Status at Catheterization: The patient presented with: non-STEMI ( w/i 7 days). [employer] angina class was IV. This patient was on beta blockers and calcium humberto blockers pr ior to the procedure. No stress or imaging studies were performed prior to this procedure. The status of the diagnostic procedure was Urgent. Technique: A 6Fr sheath was inserted in the right femoral artery utilizing the Seldinger technique. A 5Fr sheath was i nserted in the right femoral vein utilizing the Seldinger technique. The mammary artery was injected utilizing a 5Fr SARA catheter. Right hea rt catheterization was performed utilizing a 5Fr Balloon wedge catheter. Aortic Root was performed with a 5Fr SARA catheter. A 5Fr JL 4 catheter w as used to inject the left coronary artery. The right coronary art gina was injected utilizing a 5Fr JR 4 catheter. A 5Fr SARA catheter was u sed to inject the bypass graft. Bypass graft stent insertion was perfor med and the equipment utilized will be described in the intervention s ummary section. 3,000 units of heparin were administered. Intracoronar y nitroglycerin was given during this case. A total of 200cc of Omnipaqu e were opened, 130cc of Omnipaque were administered and 70cc of Omnipaque were wasted. Radiation: Fluoro time was 23.2 minutes, dose area produc t was 154,993 mGYcm2 and air kerma was 1,814 mGY. The patient received the following medi cations prior to and during the procedure: Aspirin (any), Clopidogrel a nd Unfractionated Heparin (any). Hemodynamics: Right Heart Pressures Hemodynamics: Syst Diast EDP a v m RA 12 10 8 RV 39 11 PA 45 20 28 PCW 22 26 20 Hemodynamic Profile: Profile 1 CO 5.89 CI 2.61 TSR 1,087 SVR 978 TPR 380 PVR 109 Technique Estimated Jules Left Heart Pressures Resting: Syst Diast EDP a v m Ao 128 55 80 Post Contrast: Syst Diast EDP a v m Ao 122 47 75 LV 121 22 Oximetry: Location %Sat Location %Sat Main Pulmonary Artery 59.0 Peripheral A rterial 89.0 Coronary Angiography: Dominance: Right Left Main There was a 90% stenosis of the distal segment of the left main artery. Left Anterior Descending There was a single discrete total occlu reid of the proximal segment of the left anterior descending artery (LAD). Left Circumflex There was an 80% single discrete stenos is of the proximal segment of the left circumflex artery (LCX). Right Coronary Artery There was mild diffuse (<=25% stenosis) disease of the entire vessel segment of the right coronary artery (R CA). The RCA was moderate in size. There was mild diffuse (<=25% stenosis) disease of the entire vessel segment of the right posterior descendi ng branch (RPDA) of the RCA. The RPDA was moderate in size. Ramus The entire vessel segment of the ramus was noted. Bypass Grafts: There was a total of three bypass graft s evaluated during this procedure. 1. Left internal mammary artery graft t o the LAD There was a left internal mammary arter y graft with a single anastomosis to the left anterior descen ding artery (LAD). There was no evidence of obstruction in this graft. Distal flow was normal. 2. Saphenous vein graft to the ramus There was a saphenous vein graft with a single anastomosis to the ramus. There was a severe diffuse (>=75% steno sis) disease of the proximal portion of the segment of this graft be tween the origin of this graft and the ramus. There is a diffuse 80% lesion in the pr oximal portion of the graft. 3. Saphenous vein graft to the OM1 There was a saphenous vein graft with a single anastomosis to the first obtuse marginal branch (OM1) of t he LCX. There was no evidence of obstruction in this graft. Distal flow was normal. Indication for Intervention: Coronary intervention was indicated for primary therapy for an acute myocardial infarction. Left Ventricular Ejection fraction was not assessed. The priority for the procedur e was Urgent. The NCDR indication for the procedure was PCI for high risk Non-STEMI or unstable angina. Right Heart catheterization was initiat ed for Congestive heart failure (428.0). Intervention Summary: Saphenous vein graft to the ramus Between the origin of this graft and th e ramus - Proximal Severe Diffuse (>=75% Stenosis) Stent insertion was performed on the se darin diffuse (>=75% stenosis) stenosis in the proximal port ion of the segment of this graft between the origin of this g raft and the ramus. This was a de chery lesion. According to the ACC/AHA classification system, this lesion was a type C high risk lesion. Primary prevention of restenosi s was the indication for stent insertion. This was the culpr it lesion. Vessel flow pre intervention was JENNIFER 3. Stent insertion was accomplished throug h a 6 Fr. JR 4 guide. The lesion was predilated with a 2.50mm EUPHORA 15 MM balloon with a maximum inflation pressure of 12 atmospheres. A premounted 3.00 x 38 mm Resolute NISA ( NAOMI) was deployed with a maximum inflation pressure of 14 atmo spheres. Following stent deployment, the lesion was dilate d using a 3.50mm NC EUPHORA 20 MM balloon with a maximum in flation pressure of 16 atmospheres. The final outcome was defined as succes sful. There was no residual stenosis following this interv ention. The final JENNIFER flow was 3. Vascular Access: Vascular Access Angiogram: A selective angiogram at the right femo ral artery revealed mild diffuse disease. Vascular Access Management: A Perclose was deployed at the right fe moral artery access site. This device was successful. Manual Compression of the right femoral vein access site was performed. Dual Antiplatelet (DAPT) Recommendations : Drug eluting stent (NAOMI) inserted. P2Y12 Loading dose administered prior t o arrival in the lab specialist. Recommend continuing clopidogrel 75 mg PO daily for 12 months. Recommend continuing aspirin 81 mg unless intoler ant. The DAPT score is 5. The DAPT score vivian culates net clinical benefit of prolonged dual antiplatelet therapy fol lowing percutaneous coronary intervention. A DAPT Score of equal or greater than 2 suggests an increased risk of late stent thrombosis and MACCE. If the DAPT score is equal or greater than 2 and the patient tolerates the recommended duration of DAPT without bleeding or si de effects, consider extending the DAPT to 30 months post procedure. 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 Comments: Pt presented with angina and positive b iomarkers. Coronary and graft angiography showed severe left sided di sease with patent MARTINEZ to LAD and SVG to OM1. There was severe disease in the SVG to ramus which was treated with a single NAOMI PCI with good result and normal flow. Right sided filling pressures were consistent with elevated PCWP with optimized cardiac output. Recommend monitoring cl osely for contrast induced toxicity given baseline renal insuffici ency and contrast exposure. The attending physician was present for the entire procedure. Dr. Mariana Bruno M.D. was present during the moderate sedation intraservice time as documented by the sedation nurs e. Case time = 00:52. Dr. Mariana Bruno M.D. performed the kaitlyn nary angiography, left heart catheterization, bypass graft study, [facility] heart catheterization, oximetry, access site angiography and stent inser tion-bypass graft. Mariana Bruno M.D. Electronically Signed by: Edgar Mcdonald Report Finalized: 09/14/2017 17:25 Report Last Ammended: 01/22/2018 10:35 Mariana Bruno MD CARDIAC CATH ORDERABLES Performing Organization Address City/State/ZIP Code Phon e Number CARDIOMAC SYSTEM POCT Glucose (09/14/2017 11:00 AM EST) athologist Signature POC Glucose 150 65 - 199 [facility] Comment: Supplemental ranges: <140 mg/dL before meals <180 mg/dL all other times of the day Specimen Anatomical Collection Method Collection Time Receive d Time (Source) Location / / Volume Laterality Blood specimen 09/14/2017 11:00 7 (specimen) AM EST 11:00 AM EST Karyn Soliz MD POINT OF CARE TEST ORDERABLE S Performing Organization Address City/[facility]/ZIP [place] [address] POCT Glucose (09/14/2017 7:36 AM EST) P athologist Signature POC Glucose 160 65 - 199 [place] mg/dL [facility] Comment: Supplemental ranges: <140 mg/dL before meals <180 mg/dL all other times of the day Specimen Anatomical Collection Method Collection Time Receive d Time (Source) Location / / Volume Laterality Blood specimen 09/14/2017 7:36 AM 017 7:36 (specimen) EST AM EST Karyn Soliz MD POINT OF CARE TEST ORDERABLE S Performing Organization Address City/State/[place] [address] [facility] [address] POCT Glucose (09/14/2017 4:07 AM EST) P athologist Signature POC Glucose 124 65 - 199 [facility] mg[facility]dL [facility] Comment: Supplemental ranges: <140 mg/dL before meals <180 mg/dL all other times of the day Specimen Anatomical Collection Method Collection Time Receive d Time (Source) Location / / Volume Laterality Blood specimen 09/14/2017 4:07 AM 017 4:07 (specimen) EST AM EST Karyn Soliz MD POINT OF CARE TEST ORDERABLE S Performing Organization Address City/State/ZIP Code Phon e Number [address] (ABNORMAL) Differential, Automated (09/14/2017 4:02 AM EST) Patholo gist Method Time Signature Neutrophils % 70.0 % [facility] Neutr Abs (ANC) 7.56 (H) 1.70 - [facility] 6.10 [facility] x10(3)/[facility] LABORATORY Lymphocytes % 15.6 % [facility] Lymphocytes Abs 1.7 0.9 - 3.2 [facility] x10(3)/[facility] LABORATORY Monocytes % 11.3 % [facility] Monocyte Abs 1.2 (H) 0.3 - 0.9 [facility] x10(3)/[facility] LABORATORY Eosinophils % 1.9 % [facility] Eosinophils Abs 0.2 0.0 - 0.4 [facility] x10(3)/[facility] LABORATORY Basophils % 0.6 % [facility] Basophils Abs 0.1 0.0 - 0.1 [facility] x10(3)/[facility] LABORATORY Immature Gran % 0.60 % [facility] Comment: Immature granulocytes(IG's)percentage an d absolute count will include metamyelocytes, myelocytes, and promyelo cytes. Blood smears from CBCs yielding IG's will be scanned manually for concor dance. If this scan disagrees with the automated IG or if promyelocytes are not ed, a manual differential will be performed. Kayla Gran Abs 0.06 (H) 0.00 - 0.04 x10(3)/[facility] LABORATORY Specimen Anatomical Collection Method Collection Time Receive d Time (Source) Location / / Volume Laterality Blood specimen 09/14/2017 4:02 AM 017 4:29 (specimen) EST AM EST Resulting Agency Comment Spec In Lab Duke Olivier MD HEMATOLOGY ORDERABLES Performing Organization Address City/State/[place] [address] (ABNORMAL) Hemogram (09/14/2017 4:02 AM EST) Analysis Performed At Patho logist Time Signature WBC 10.8 (H) 4.0 - 9.5 [facility] x[facility](3[facility] LABORATORY RBC 4.38 (L) 4.58 - [facility] 5.54 [facility] x10(6)/[facility] LABORATORY Hemoglobin 12.5 (L) 13.7 - [facility] 16.5 gm/dL [facility] Hematocrit 38.2 (L) 40.5 - [facility] 48.5 % [facility] MCV 87.2 82.9 - [facility] 93.1 [facility] LABORATORY MCH 28.5 27.5 - [place] 32.1 pg [facility] MCHC 32.7 32.0 - [facility] 35.7 gm/dL [facility] Platelets 212 145 - 357 [facility] x10(3)/[facility] LABORATORY RDWSD 46.8 (H) 36.0 - [facility] 45.0 [facility] LABORATORY RDWCV 14.6 (H) 11.4 - [facility] 13.8 % [facility] MPV 10.5 7.6 - 12.9 [facility] LABORATORY nRBC % Auto 0.0 % [facility] nRBC Abs Auto 0.000 0.000 - [facility] 0.000 [facility] x10(3)/[facility] LABORATORY Specimen Anatomical Collection Method Collection Time Receive d Time (Source) Location / / Volume Laterality Blood specimen 09/14/2017 4:02 AM 017 4:29 (specimen) EST AM EST Resulting Agency Comment Spec In Lab Duke Olivier MD HEMATOLOGY ORDERABLES Performing Organization Address City/[facility]/ZIP Code Phon e Number [address] (ABNORMAL) APTT (09/14/2017 4:02 AM EST) athologist Signature PTT 111 (H) 25 - 35 sec [facility] Comment: The recommended therapeutic range for fu ll dose, unfractionated heparin at [facility] is 80 ? 114 seconds. The use of the anti-Xa (heparin) level rather than the PTT is recommended for monitoring anticoagul ation intensity in critically ill patients receiving unfractionated hepari n by continuous IV infusion. Specimen Anatomical Collection Method Collection Time Receive d Time (Source) Location / / Volume Laterality Blood specimen 09/14/2017 4:02 AM 017 4:29 (specimen) EST AM EST Resulting Agency Comment Spec In Lab Karyn Soliz MD HEMATOLOGY ORDERABLES Performing Organization Address City/[facility]/ZIP [place] [address] Magnesium (09/14/2017 4:02 AM EST) athologist Signature Magnesium 0.97 0.69 - 1.07 [facility] mmol/L [facility] Specimen Anatomical Collection Method Collection Time Receive d Time (Source) Location / / Volume Laterality Blood specimen 09/14/2017 4:02 AM 017 4:29 (specimen) EST AM EST Resulting Agency Comment Spec In Lab Duke Olivier MD CHEMISTRY ORDERABLES Performing Organization Address City/[facility]/ZIP [place] [address] (ABNORMAL) Basic Metabolic Panel (non-fasting) (09/14/2017 4:02 AM EST) athologist Signature Glucose Lvl 112 65 - 199 [facility] mg/dL [facility] Comment: Diabetes: >=200 mg/dL plus symp toms BUN 45 (H) 10 - 20 mg/dL [facility] Creatinine 1.68 (H) 0.80 - 1.50 mg/dL [facility] Sodium 140 135 - 145 mmol/L [facility] Potassium 3.9 3.5 - 5.0 mmol/L [facility] Comment: Please note: ??Patients with WBC >100,00 0 may have falsely elevated Potassium levels. ??For accurate Potassium quantif ication in these patients send serum separator tube (gold top) for subsequent determinations. ??Contact the Clinical Chemistry Laboratory if there are any qu estions. Chloride 99 98 - 107 mmol/L [facility] CO2 25 22 - 31 mmol/L [facility] Anion Gap 16 (H) 5 - 15 mmol/L [facility] Calcium 8.9 8.5 - 10.5 mg/dL [facility] Estimated GFR 41 (L) >=60 [facility] Comment: The reported eGFR should be multiplied b y 1.2 for patients. The MDRD is not an appropriate measure o f renal function for patients with body mass extremes or in patients with acute kidney failure. http://ebookpie/DHnkdep http://ebookpie/DHMCnkf Specimen Anatomical Collection Method Collection Time Receive d Time (Source) Location / / Volume Laterality Blood specimen 09/14/2017 4:02 AM 017 4:29 (specimen) EST AM EST Resulting Agency Comment Spec In Lab Duke Olivier MD CHEMISTRY ORDERABLES Performing Organization Address City/State/[place] [address] POCT Glucose (09/13/2017 11:54 PM EST) P athologist Signature POC Glucose 102 65 - 199 [facility] mg/dL [facility] Comment: Supplemental ranges: <140 mg/dL before meals <180 mg/dL all other times of the day Specimen Anatomical Collection Method Collection Time Receive d Time (Source) Location / / Volume Laterality Blood specimen 09/13/2017 11:54 7 (specimen) PM EST 11:54 PM EST Karyn Soliz MD POINT OF CARE TEST ORDERABLE S Performing Organization Address City/[facility]/Z[place] [address] (ABNORMAL) APTT (09/13/2017 9:48 PM EST) P athologist Signature PTT 94 (H) 25 - 35 sec [facility] Comment: The recommended therapeutic range for fu ll dose, unfractionated heparin at [facility] is 80 ? 114 seconds. The use of the anti-Xa (heparin) level rather than the PTT is recommended for monitoring anticoagul ation intensity in critically ill patients receiving unfractionated hepari n by continuous IV infusion. Specimen Anatomical Collection Method Collection Time Receive d Time (Source) Location / / Volume Laterality Blood specimen 09/13/2017 9:48 PM 017 (specimen) EST 10:10 PM EST Resulting Agency Comment Spec In Lab Karyn Soliz MD HEMATOLOGY ORDERABLES Performing Organization Address City/State/ZIP [place] [address] (ABNORMAL) POCT Glucose (09/13/2017 8:12 PM EST) athologist Signature POC Glucose 203 (H) 65 - 199 [facility] mg/dL [facility] Comment: Supplemental ranges: <140 mg/dL before meals <180 mg/dL all other times of the day Specimen Anatomical Collection Method Collection Time Receive d Time (Source) Location / / Volume Laterality Blood specimen 09/13/2017 8:12 PM 017 8:12 (specimen) EST PM EST Karyn Soliz MD POINT OF CARE TEST ORDERABLE S Performing Organization Address City/State/[place] [address] POCT Glucose (09/13/2017 5:20 PM EST) P athologist Signature POC Glucose 130 65 - 199 [facility] mg/dL [facility] Comment: Supplemental ranges: <140 mg/dL before meals <180 mg/dL all other times of the day Specimen Anatomical Collection Method Collection Time Receive d Time (Source) Location / / Volume Laterality Blood specimen 09/13/2017 5:20 PM 017 5:20 (specimen) EST PM EST Karyn Soliz MD POINT OF CARE TEST ORDERABLE S Performing Organization Address City/State/[place] [address] (ABNORMAL) APTT (09/13/2017 3:10 PM EST) athologist Signature PTT 71 (H) 25 - 35 sec [facility] Comment: The recommended therapeutic range for fu ll dose, unfractionated heparin at [facility] is 80 ? 114 seconds. The use of the anti-Xa (heparin) level rather than the PTT is recommended for monitoring anticoagul ation intensity in critically ill patients receiving unfractionated hepari n by continuous IV infusion. Specimen Anatomical Collection Method Collection Time Receive d Time (Source) Location / / Volume Laterality Blood specimen 09/13/2017 3:10 PM 017 3:19 (specimen) EST PM EST Resulting Agency Comment Spec In Lab Karyn Soliz MD HEMATOLOGY ORDERABLES Performing Organization Address City/State/[place] [address] POCT Glucose (09/13/2017 11:27 AM EST) athologist Signature POC Glucose 191 65 - 199 [facility] mg/dL [facility] Comment: Supplemental ranges: <140 mg/dL before meals <180 mg/dL all other times of the day Specimen Anatomical Collection Method Collection Time Receive d Time (Source) Location / / Volume Laterality Blood specimen 09/13/2017 11:27 7 (specimen) AM EST 11:27 AM EST Karyn Soliz MD POINT OF CARE TEST ORDERABLE S Performing Organization Address City/[facility]/ZIP [place] [address] POCT Glucose (09/13/2017 8:10 AM EST) athologist Signature POC Glucose 124 65 - 199 [facility] mg/dL [facility] Comment: Supplemental ranges: <140 mg/dL before meals <180 mg/dL all other times of the day Specimen Anatomical Collection Method Collection Time Receive d Time (Source) Location / / Volume Laterality Blood specimen 09/13/2017 8:10 AM 017 8:10 (specimen) EST AM EST Karyn Soliz MD POINT OF CARE TEST ORDERABLE S Performing Organization Address City/[facility]/[place] [address] (ABNORMAL) APTT (09/13/2017 7:33 AM EST) P athologist Signature PTT 68 (H) 25 - 35 sec [facility] Comment: The recommended therapeutic range for fu ll dose, unfractionated heparin at [facility] is 80 ? 114 seconds. The use of the anti-Xa (heparin) level rather than the PTT is recommended for monitoring anticoagul ation intensity in critically ill patients receiving unfractionated hepari n by continuous IV infusion. Specimen Anatomical Collection Method Collection Time Receive d Time (Source) Location / / Volume Laterality Blood specimen 09/13/2017 7:33 AM 017 7:48 (specimen) EST AM EST Resulting Agency Comment Spec In Lab Karyn Soliz MD HEMATOLOGY ORDERABLES Performing Organization Address City/[facility] [place] [address] POCT Glucose (09/13/2017 3:50 AM EST) P athologist Signature POC Glucose 111 65 - 199 [facility] mg/dL [facility] Comment: Supplemental ranges: <140 mg/dL before meals <180 mg/dL all other times of the day Specimen Anatomical Collection Method Collection Time Receive d Time (Source) Location / / Volume Laterality Blood specimen 09/13/2017 3:50 AM 017 3:50 (specimen) EST AM EST Karyn Soliz MD POINT OF CARE TEST ORDERABLE S Performing Organization Address City/[facility]/ZIP [place] [address] (ABNORMAL) Differential, Automated (09/13/2017 1:20 AM EST) Patholo gist Method Time Signature Neutrophils % 72.8 % [facility] Neutr Abs (ANC) 8.12 (H) 1.70 - [facility] 6.10 [facility] x10(3)/[facility] LABORATORY Lymphocytes % 14.8 % [facility] Lymphocytes Abs 1.6 0.9 - 3.2 [facility] x10(3)/[facility] LABORATORY Monocytes % 9.9 % [facility] Monocyte Abs 1.1 (H) 0.3 - 0.9 [facility] x10(3)/[facility] LABORATORY Eosinophils % 1.6 % [facility] Eosinophils Abs 0.2 0.0 - 0.4 [facility] x10(3)/[facility] LABORATORY Basophils % 0.5 % [facility] Basophils Abs 0.1 0.0 - 0.1 [facility] x10(3)/[facility] LABORATORY Immature Gran % 0.40 % [facility] Comment: Immature granulocytes(IG's)percentage an d absolute count will include metamyelocytes, myelocytes, and promyelo cytes. Blood smears from CBCs yielding IG's will be scanned manually for concor dance. If this scan disagrees with the automated IG or if promyelocytes are not ed, a manual differential will be performed. Kayla Gran Abs 0.05 (H) 0.00 - 0.04 x10(3)/[facility] LABORATORY Specimen Anatomical Collection Method Collection Time Receive d Time (Source) Location / / Volume Laterality Blood specimen 09/13/2017 1:20 AM 017 1:25 (specimen) EST AM EST Resulting Agency Comment Spec In Lab Duke Olivier MD HEMATOLOGY ORDERABLES Performing Organization Address City/State/[place] [address] (ABNORMAL) Hemogram (09/13/2017 1:20 AM EST) Analysis Performed At Patho logist Time Signature WBC 11.2 (H) 4.0 - 9.5 [facility] x10(3)/[facility] LABORATORY RBC 4.17 (L) 4.58 - [facility] 5.54 [facility] x10(6)/[facility] LABORATORY Hemoglobin 11.8 (L) 13.7 - [facility] 16.5 gm/dL [facility] Hematocrit 36.3 (L) 40.5 - [facility] 48.5 % [facility] MCV 87.1 82.9 - [facility] 93.1 [facility] LABORATORY MCH 28.3 27.5 - [facility] 32.1 pg [facility] MCHC 32.5 32.0 - [facility] 35.7 gm/dL [facility] Platelets 181 145 - 357 [facility] x10(3)/[facility] LABORATORY RDWSD 46.5 (H) 36.0 - [facility] 45.0 [facility] LABORATORY RDWCV 14.6 (H) 11.4 - [facility] 13.8 % [facility]ORY MPV 10.4 7.6 - 12.9 [facility] LABORATORY nRBC % Auto 0.0 % [facility] nRBC Abs Auto 0.000 0.000 - [facility] 0.000 [facility] x10(3)/[facility] LABORATORY Specimen Anatomical Collection Method Collection Time Receive d Time (Source) Location / / Volume Laterality Blood specimen 09/13/2017 1:20 AM 017 1:25 (specimen) EST AM EST Resulting Agency Comment Spec In Lab Duke Olivier MD HEMATOLOGY ORDERABLES Performing Organization Address City/State/[place] [address] (ABNORMAL) APTT (09/13/2017 1:20 AM EST) P athologist Signature PTT 80 (H) 25 - 35 sec [facility] Comment: The recommended therapeutic range for fu ll dose, unfractionated heparin at [facility] is 80 ? 114 seconds. The use of the anti-Xa (heparin) level rather than the PTT is recommended for monitoring anticoagul ation intensity in critically ill patients receiving unfractionated hepari n by continuous IV infusion. Specimen Anatomical Collection Method Collection Time Receive d Time (Source) Location / / Volume Laterality Blood specimen 09/13/2017 1:20 AM 017 1:25 (specimen) EST AM EST Resulting Agency Comment Spec In Lab Karyn Soliz MD HEMATOLOGY ORDERABLES Performing Organization Address City/[facility]/ZIP Code Phon e Number [address] Magnesium (09/13/2017 1:20 AM EST) P athologist Signature Magnesium 0.94 0.69 - 1.07 [facility] mmol/L [facility] LABORATORY Specimen Anatomical Collection Method Collection Time Receive d Time (Source) Location / / Volume Laterality Blood specimen 09/13/2017 1:20 AM 017 1:25 (specimen) EST AM EST Resulting Agency Comment Spec In Lab Duke Olivier MD CHEMISTRY ORDERABLES Performing Organization Address City/[facility]/Z[place] [address] (ABNORMAL) Basic Metabolic Panel (non-fasting) (09/13/2017 1:20 AM EST) athologist Signature Glucose Lvl 114 65 - 199 [facility] mg/dL [facility] Comment: Diabetes: >=200 mg/dL plus symp toms BUN 45 (H) 10 - 20 mg/dL [facility] LABORATORY Creatinine 1.57 (H) 0.80 - 1.50 mg/dL [facility] LABORATORY Sodium 137 135 - 145 mmol/L [facility] Potassium 3.7 3.5 - 5.0 mmol/L [facility] Comment: Please note: ??Patients with WBC >100,00 0 may have falsely elevated Potassium levels. ??For accurate Potassium quantif ication in these patients send serum separator tube (gold top) for subsequent determinations. ??Contact the Clinical Chemistry Laboratory if there are any qu estions. Chloride 98 98 - 107 mmol/L [facility] CO2 25 22 - 31 mmol/L [facility] Anion Gap 14 5 - 15 mmol/L [facility] Calcium 8.8 8.5 - 10.5 mg/dL [facility] Estimated GFR 44 (L) >=60 [facility] Comment: The reported eGFR should be multiplied b y 1.2 for patients. The MDRD is not an appropriate measure o f renal function for patients with body mass extremes or in patients with acute kidney failure. http://ebookpie/DHnkdep http://ebookpie/DHMCnkf Specimen Anatomical Collection Method Collection Time Receive d Time (Source) Location / / Volume Laterality Blood specimen 09/13/2017 1:20 AM 017 1:25 (specimen) EST AM EST Resulting Agency Comment Spec In Lab Duke Olivier MD CHEMISTRY ORDERABLES Performing Organization Address City/[facility]/[place] [address] SCAN DOC: CARDIAC CATH (09/13/2017 12:00 AM EST) Narrative 09/13/2017 12:00 AM EST This result has an attachment that is no t available. Ordered by an unspecified provider. Scanning Provider MEDIA MGR SCAN EXT ORDR/RSLT POCT Glucose (09/12/2017 11:16 PM EST) athologist Signature POC Glucose 120 65 - 199 [facility] mg/dL [facility] Comment: Supplemental ranges: <140 mg/dL before meals <180 mg/dL all other times of the day Specimen Anatomical Collection Method Collection Time Receive d Time (Source) Location / / Volume Laterality Blood specimen 09/12/2017 11:16 7 (specimen) PM EST 11:16 PM EST Karyn Soliz MD POINT OF CARE TEST ORDERABLE S Performing Organization Address City/[facility]/ZIP Code Phon e Number [address] POCT Glucose (09/12/2017 7:41 PM EST) P athologist Signature POC Glucose 152 65 - 199 [facility] Comment: Supplemental ranges: <140 mg/dL before meals <180 mg/dL all other times of the day Specimen Anatomical Collection Method Collection Time Receive d Time (Source) Location / / Volume Laterality Blood specimen 09/12/2017 7:41 PM 017 7:41 (specimen) EST PM EST Karyn Soliz MD POINT OF CARE TEST ORDERABLE S Performing Organization Address City/[facility]/Z[place] [address] (ABNORMAL) APTT (09/12/2017 5:47 PM EST) athologist Signature PTT 37 (H) 25 - 35 sec [facility] Comment: The recommended therapeutic range for fu ll dose, unfractionated heparin at [facility] is 80 ? 114 seconds. The use of the anti-Xa (heparin) level rather than the PTT is recommended for monitoring anticoagul ation intensity in critically ill patients receiving unfractionated hepari n by continuous IV infusion. Specimen Anatomical Collection Method Collection Time Receive d Time (Source) Location / / Volume Laterality Blood specimen 09/12/2017 5:47 PM 017 5:51 (specimen) EST PM EST Resulting Agency Comment Spec In Lab Karyn Soliz MD HEMATOLOGY ORDERABLES Performing Organization Address City/[facility]/Z[place] [address] POCT Glucose (09/12/2017 3:33 PM EST) athologist [facility] POC Glucose 151 65 - 199 [facility] mg/dL [facility] Comment: Supplemental ranges: <140 mg/dL before meals <180 mg/dL all other times of the day Specimen Anatomical Collection Method Collection Time Receive d Time (Source) Location / / Volume Laterality Blood specimen 09/12/2017 3:33 PM 017 3:33 (specimen) EST PM EST Karyn Soliz MD POINT OF CARE TEST ORDERABLE S Performing Organization Address City/[facility]/[place] [address] (ABNORMAL) Cardiac Enzymes (LEB/CGP) (09/12/2017 1:34 PM EST) athologist Signature Troponin-T 0.02 (H) 0.00 - [facility] ng/mL [facility] Comment: The 99th percentile for Troponin T is le ss than 0.01 ng/mL, any detectable cTnT concentration using this assay should be considered elevated. According to the third universal definit ion of myocardial infarction the following criteria with a clinical prese ntation consistent with acute myocardial ischemia meets the diagnosis for a myocardial infarction (OR). Detection of a rise and/or fall of cTnT, with at least one value greater than the 99th percentile (> or = 0.01) and wi th at least one of the following ?? Symptoms of ischemia ?? New or presumed new significant ST-se gment-T wave (ST-T) changes or new left bundle branch block (LBBB) ?? Development of pathologic Q waves in the ECG ?? Imaging evidence of new loss of viabl e myocardium or new regional wall motion abnormality ?? Identification of an intracoronary th rombus by angiography or autopsy Samples for cTnT testing should be obtai alberto serially upon first assessment and again 3 to 6 hours later. If the clinica l suspicion is high and previous samples have been negative an additional sample may be indicated. Reference: Third [place] Definition of Myocardial Infarction. Journal of the [place] [employer] 2012;60:1581-98 CK, Total 193 0 - 200 unit/L [facility] Specimen Anatomical Collection Method Collection Time Receive d Time (Source) Location / / Volume Laterality Blood specimen 09/12/2017 1:34 PM 017 1:49 (specimen) EST PM EST Resulting Agency Comment Spec In Lab Duke Olivier MD CHEMISTRY ORDERABLES Performing Organization Address City/State/[place] [address] POCT Glucose (09/12/2017 12:08 PM EST) athologist Signature POC Glucose 150 65 - 199 [facility] mg/dL [facility] Comment: Supplemental ranges: <140 mg/dL before meals <180 mg/dL all other times of the day Specimen Anatomical Collection Method Collection Time Receive d Time (Source) Location / / Volume Laterality Blood specimen 09/12/2017 12:08 7 (specimen) PM EST 12:08 PM EST Karyn Soliz MD POINT OF CARE TEST ORDERABLE S Performing Organization Address City/[facility]/ZIP Code Phon e Number [address] APTT (09/12/2017 11:01 AM EST) athologist Signature PTT 35 25 - 35 sec [facility] Comment: The recommended therapeutic range for fu ll dose, unfractionated heparin at [facility] is 80 ? 114 seconds. The use of the anti-Xa (heparin) level rather than the PTT is recommended for monitoring anticoagul ation intensity in critically ill patients receiving unfractionated hepari n by continuous IV infusion. Specimen Anatomical Collection Method Collection Time Receive d Time (Source) Location / / Volume Laterality Blood specimen 09/12/2017 11:01 7 (specimen) AM EST 11:09 AM EST Resulting Agency Comment Spec In Lab Karyn Soliz MD HEMATOLOGY ORDERABLES Performing Organization Address City/[facility]/ZIP Code Phon e Number [address] POCT Glucose (09/12/2017 7:41 AM EST) athologist Signature POC Glucose 129 65 - 199 [facility] mg/dL [facility] Comment: Supplemental ranges: <140 mg/dL before meals <180 mg/dL all other times of the day Specimen Anatomical Collection Method Collection Time Receive d Time (Source) Location / / Volume Laterality Blood specimen 09/12/2017 7:41 AM 017 7:41 (specimen) EST AM EST Karyn Soliz MD POINT OF CARE TEST ORDERABLE S Performing Organization Address City/[facility]/ZIP Code Phon e Number [address] (ABNORMAL) Differential, Automated (09/12/2017 6:02 AM EST) Patholo gist Method Time Signature Neutrophils % 74.0 % [facility] Neutr Abs (ANC) 7.27 (H) 1.70 - [facility] 6.10 [facility] x10(3)/[facility] LABORATORY Lymphocytes % 13.6 % [facility] Lymphocytes Abs 1.3 0.9 - 3.2 [facility] x10(3)/[facility] LABORATORY Monocytes % 9.9 % [facility] Monocyte Abs 1.0 (H) 0.3 - 0.9 [facility] x10(3)/[facility] LABORATORY Eosinophils % 1.8 % [facility] Eosinophils Abs 0.2 0.0 - 0.4 [facility] x10(3)/[facility] LABORATORY Basophils % 0.3 % [facility] Basophils Abs 0.0 0.0 - 0.1 [facility] x10(3)/[facility] LABORATORY Immature Gran % 0.40 % [facility] Comment: Immature granulocytes(IG's)percentage an d absolute count will include metamyelocytes, myelocytes, and promyelo cytes. Blood smears from CBCs yielding IG's will be scanned manually for concor dance. If this scan disagrees with the automated IG or if promyelocytes are not ed, a manual differential will be performed. Kayla Gran Abs 0.04 0.00 - 0.04 x10(3)/[facility] MAR Y [facility] LABORATORY Specimen Anatomical Collection Method Collection Time Receive d Time (Source) Location / / Volume Laterality Blood specimen 09/12/2017 6:02 AM 017 6:25 (specimen) EST AM EST Resulting Agency Comment Spec In Lab Duke Olivier MD HEMATOLOGY ORDERABLES Performing Organization Address City/State/[place] [address] (ABNORMAL) Hemogram (09/12/2017 6:02 AM EST) Analysis Performed At Patho logist Time Signature WBC 9.8 (H) 4.0 - 9.5 [facility] x10(3)/[facility] LABORATORY RBC 4.42 (L) 4.58 - [facility] 5.54 [facility] x10(6)/[facility] LABORATORY Hemoglobin 12.6 (L) 13.7 - [facility] 16.5 gm/dL [facility] LABORATORY Hematocrit 38.9 (L) 40.5 - [facility] [place] 48.5 % [facility] LABORATORY MCV 88.0 82.9 - [facility] [place] 93.1 [facility] LABORATORY MCH 28.5 27.5 - [facility] [place] 32.1 pg [facility] LABORATORY MCHC 32.4 32.0 - [facility] [place] 35.7 gm/dL [facility]ORY Platelets 187 145 - 357 [facility] x10(3)/[facility] LABORATORY RDWSD 46.8 (H) 36.0 - [facility] [place] 45.0 [facility] LABORATORY RDWCV 14.6 (H) 11.4 - [facility] [place] 13.8 % [facility] LABORATORY MPV 10.5 7.6 - 12.9 [facility] LABORATORY nRBC % Auto 0.0 % [facility] nRBC Abs Auto 0.000 0.000 - [facility] [place] 0.000 [facility] x10(3)/[facility] LABORATORY Specimen Anatomical Collection Method Collection Time Receive d Time (Source) Location / / Volume Laterality Blood specimen 09/12/2017 6:02 AM 017 6:25 (specimen) EST AM EST Resulting Agency Comment Spec In Lab Duke Olivier MD HEMATOLOGY ORDERABLES Performing Organization Address City/State/[place] [address] (ABNORMAL) Cardiac Enzymes (LEB/CGP) (09/12/2017 6:02 AM EST) P athologist Signature Troponin-T 0.02 (H) 0.00 - [facility] 0.00 ng/mL [facility] Comment: The 99th percentile for Troponin T is le ss than 0.01 ng/mL, any detectable cTnT concentration using this assay should be considered elevated. According to the third universal definit ion of myocardial infarction the following criteria with a clinical prese ntation consistent with acute myocardial ischemia meets the diagnosis for a myocardial infarction (OR). Detection of a rise and/or fall of cTnT, with at least one value greater than the 99th percentile (> or = 0.01) and wi th at least one of the following ?? Symptoms of ischemia ?? New or presumed new significant ST-se gment-T wave (ST-T) changes or new left bundle branch block (LBBB) ?? Development of pathologic Q waves in the ECG ?? Imaging evidence of new loss of viabl e myocardium or new regional wall motion abnormality ?? Identification of an intracoronary th rombus by angiography or autopsy Samples for cTnT testing should be obtai alberto serially upon first assessment and again 3 to 6 hours later. If the clinica l suspicion is high and previous samples have been negative an additional sample may be indicated. Reference: Third [place] Definition of Myocardial Infarction. Journal of the [place] [employer] 2012;60:1581-98 CK, Total 200 0 - 200 unit/L [facility] Specimen Anatomical Collection Method Collection Time Receive d Time (Source) Location / / Volume Laterality Blood specimen 09/12/2017 6:02 AM 017 6:25 (specimen) EST AM EST Resulting Agency Comment Spec In Lab Duke Olivier MD CHEMISTRY ORDERABLES Performing Organization Address City/[facility]/Z[place] [address] Magnesium (09/12/2017 6:02 AM EST) P athologist Signature Magnesium 0.88 0.69 - 1.07 [facility] mmol/L [facility] Specimen Anatomical Collection Method Collection Time Receive d Time (Source) Location / / Volume Laterality Blood specimen 09/12/2017 6:02 AM 017 6:25 (specimen) EST AM EST Resulting Agency Comment Spec In Lab Duke Olivier MD CHEMISTRY ORDERABLES Performing Organization Address City/[facility] [place] [address] (ABNORMAL) Basic Metabolic Panel (non-fasting) (09/12/2017 6:02 AM EST) P athologist Signature Glucose Lvl 125 65 - 199 [facility] mg/dL [facility] Comment: Diabetes: >=200 mg/dL plus symp toms BUN 39 (H) 10 - 20 mg/dL [facility] [facility] Creatinine 1.49 0.80 - 1.50 mg/dL [facility] Sodium 139 135 - 145 mmol/L [facility] Potassium 3.8 3.5 - 5.0 mmol/L [facility] Comment: Please note: ??Patients with WBC >100,00 0 may have falsely elevated Potassium levels. ??For accurate Potassium quantif ication in these patients send serum separator tube (gold top) for subsequent determinations. ??Contact the Clinical Chemistry Laboratory if there are any qu estions. Chloride 97 (L) 98 - 107 mmol/L [facility] CO2 26 22 - 31 mmol/L [facility] Anion Gap 16 (H) 5 - 15 mmol/L [facility] Calcium 8.9 8.5 - 10.5 mg/dL [facility] Estimated GFR 47 (L) >=60 [facility] Comment: The reported eGFR should be multiplied b y 1.2 for patients. The MDRD is not an appropriate measure o f renal function for patients with body mass extremes or in patients with acute kidney failure. http://ebookpie/DHnkdep http://ebookpie/DHMCnkf Specimen Anatomical Collection Method Collection Time Receive d Time (Source) Location / / Volume Laterality Blood specimen 09/12/2017 6:02 AM 017 6:25 (specimen) EST AM EST Resulting Agency Comment Spec In Lab Duke Olivier MD CHEMISTRY ORDERABLES Performing Organization Address City/State/[place] [address] POCT Glucose (09/12/2017 3:53 AM EST) P athologist Signature POC Glucose 107 65 - 199 [facility] mg/dL [facility] Comment: Supplemental ranges: <140 mg/dL before meals <180 mg/dL all other times of the day Specimen Anatomical Collection Method Collection Time Receive d Time (Source) Location / / Volume Laterality Blood specimen 09/12/2017 3:53 AM 017 3:53 (specimen) EST AM EST Karyn Soliz MD POINT OF CARE TEST ORDERABLE S Performing Organization Address City/State/[place] [address] (ABNORMAL) Cardiac Enzymes (LEB/CGP) (09/12/2017 12:20 AM EST) athologist Signature Troponin-T 0.04 (H) 0.00 - [facility] 0.00 ng/mL [facility] Comment: The 99th percentile for Troponin T is le ss than 0.01 ng/mL, any detectable cTnT concentration using this assay should be considered elevated. According to the third universal definit ion of myocardial infarction the following criteria with a clinical prese ntation consistent with acute myocardial ischemia meets the diagnosis for a myocardial infarction (OR). Detection of a rise and/or fall of cTnT, with at least one value greater than the 99th percentile (> or = 0.01) and wi th at least one of the following ?? Symptoms of ischemia ?? New or presumed new significant ST-se gment-T wave (ST-T) changes or new left bundle branch block (LBBB) ?? Development of pathologic Q waves in the ECG ?? Imaging evidence of new loss of viabl e myocardium or new regional wall motion abnormality ?? Identification of an intracoronary th rombus by angiography or autopsy Samples for cTnT testing should be obtai alberto serially upon first assessment and again 3 to 6 hours later. If the clinica l suspicion is high and previous samples have been negative an additional sample may be indicated. Reference: Third [place] Definition of Myocardial Infarction. Journal of the [place] [employer] 2012;60:1581-98 CK, Total 224 (H) 0 - 200 unit/L [facility] Specimen Anatomical Collection Method Collection Time Receive d Time (Source) Location / / Volume Laterality Blood specimen 09/12/2017 12:20 7 (specimen) AM EST 12:43 AM EST Resulting Agency Comment Spec In Lab Duke Olivier MD CHEMISTRY ORDERABLES Performing Organization Address City/[facility]/ZIP Code Phon e Number [address] POCT Glucose (09/11/2017 11:43 PM EST) athologist Signature POC Glucose 90 65 - 199 [facility] mg/dL [facility] Comment: Supplemental ranges: <140 mg/dL before meals <180 mg/dL all other times of the day Specimen Anatomical Collection Method Collection Time Receive d Time (Source) Location / / Volume Laterality Blood specimen 09/11/2017 11:43 7 (specimen) PM EST 11:43 PM EST Karyn Soliz MD POINT OF CARE TEST ORDERABLE S Performing Organization Address City/[facility]/ZIP [facility] [place] [address] EKG 12 Lead (09/11/2017 11:25 PM EST) Component Value Ref Range Test Analysis Performed Pathologis t Method Time At Signature Ventricular rate 70 BPM MUSE SYSTEM Atrial Rate 70 BPM MUSE SYSTEM P-R Interval 188 ms MUSE SYSTEM QRS Duration 100 ms MUSE SYSTEM Q-T Interval 424 ms MUSE SYSTEM QTC Calculated 457 ms MUSE SYSTEM (Bezet) Calculated P Flatgap 44 degrees MUSE SYSTEM Calculated R Flatgap 38 degrees MUSE SYSTEM Calculated T Flatgap 4 degrees MUSE SYSTEM INTERPRETATION Normal sinus rhythm MUSE SYSTEM Nonspecific T wave abnormality Abnormal ECG When compared with ECG of 11-SEP-2017 00:27, No significant change was found Confirmed by MD VERNA, KARYN ([id number]) on 09/12/2017 11:48:57 AM Specimen Anatomical Collection Method Collection Time Receive d Time (Source) Location / / Volume Laterality 09/11/2017 11:25 09/12/2017 PM EST 11:48 AM EST Duke Olivier MD ECG ORDERABLES Performing Organization Address City/[facility]/ZIP Code Phon e Number MUSE SYSTEM POCT Glucose (09/11/2017 8:08 PM EST) P athologist Signature POC Glucose 175 65 - 199 [facility] Comment: Supplemental ranges: <140 mg/dL before meals <180 mg/dL all other times of the day Specimen Anatomical Collection Method Collection Time Receive d Time (Source) Location / / Volume Laterality Blood specimen 09/11/2017 8:08 PM 017 8:08 (specimen) EST PM EST Karyn Soliz MD POINT OF CARE TEST ORDERABLE S Performing Organization Address City/[facility]/ZIP Code Phon e Number [place] [phone] LAB[address] (ABNORMAL) Cardiac Enzymes (LEB/CGP) (09/11/2017 4:53 PM EST) athologist Signature Troponin-T 0.03 (H) 0.00 - [facility] [place] 0.00 ng/mL [facility] Comment: The 99th percentile for Troponin T is le ss than 0.01 ng/mL, any detectable cTnT concentration using this assay should be considered elevated. According to the third universal definit ion of myocardial infarction the following criteria with a clinical prese ntation consistent with acute myocardial ischemia meets the diagnosis for a myocardial infarction (OR). Detection of a rise and/or fall of cTnT, with at least one value greater than the 99th percentile (> or = 0.01) and wi th at least one of the following ?? Symptoms of ischemia ?? New or presumed new significant ST-se gment-T wave (ST-T) changes or new left bundle branch block (LBBB) ?? Development of pathologic Q waves in the ECG ?? Imaging evidence of new loss of viabl e myocardium or new regional wall motion abnormality ?? Identification of an intracoronary th rombus by angiography or autopsy Samples for cTnT testing should be obtai alberto serially upon first assessment and again 3 to 6 hours later. If the clinica l suspicion is high and previous samples have been negative an additional sample may be indicated. Reference: Third [place] Definition of Myocardial Infarction. Journal of the [place] [employer] 2012;60:1581-98 CK, Total 213 (H) 0 - 200 unit/L [facility] Specimen Anatomical Collection Method Collection Time Receive d Time (Source) Location / / Volume Laterality Blood specimen 09/11/2017 4:53 PM 017 4:59 (specimen) EST PM EST Resulting Agency Comment Spec In Lab Duke Olivier MD CHEMISTRY ORDERABLES Performing Organization Address City/State/ZIP Code Phon e Number [place] [phone] [facility] LAB[address] Drive POCT Glucose (09/11/2017 4:30 PM EST) athologist Signature POC Glucose 122 65 - 199 [facility] mg/dL [facility] Comment: Supplemental ranges: <140 mg/dL before meals <180 mg/dL all other times of the day Specimen Anatomical Collection Method Collection Time Receive d Time (Source) Location / / Volume Laterality Blood specimen 09/11/2017 4:30 PM 017 4:30 (specimen) EST PM EST Karyn Soliz MD POINT OF CARE TEST ORDERABLE S Performing Organization Address City/State/ZIP [place] [address] ECHOCARDIOGRAM COMPLETE W CONTRAST (09/11/2017 11:45 AM EST) P athologist Signature EF 35 [facility] Specimen (Source) Anatomical Location Collection Method / Collectio n Time Received Time / Laterality Volume 09/11/2017 Narrative [facility] - 09/11/2017 2:09 PM EST Procedure: ?Transthoracic Echocardiogram Patient: ?SERGE Reyez ? (Age): 1945(72y) Med Rec#: ? [id number] ?Sex: ?M ? [place] [facility] [place]Ht / Wt: ??168(cm)/126(kg) Pt. Loc: ?Adult Floor ? BSA: ?2.3 Study Date: ?? 09/11/2017 ?Pt. Type: Inpatient Tape: ? Referring: JACY BRUNO E Referring: Duke Olivier ([id number]) Reading: Rafael Givens ([id number]) Insight Leader: Jacy Chan [facility] Diagnosis: *ICD-10-PCS Heart failure, unspecified (I50.9) BP: ? 130/53 SUMMARY: 1. The left ventricle is moderately dila segun. Mild concentric left ventricular hypertrophy is observed. Jayne bal left ventricular systolic function is moderately reduced. The leonidas titative left ventricular ejection fraction by biplane Murguia's m ethod is 35%. 2. The left atrium is severely dilated. The right atrium is moderately dilated. 3. The right ventricle is mildly dilated . Right ventricular global systolic function is moderately reduced. 4. The aortic valve leaflets are mildly thickened. Mild (1+/4+) aortic valve regurgitation is present. 5. There is mild (1+/4+) mitral regurgit ation present. 6. There is trace tricuspid regurgitatio n present. 7. The pericardium appears normal and th ere is no evidence of a pericardial effusion. 8. Since prior study in 2011, LV and RV function are now worse. Findings ? : Left Ventricle: ? The left ventricle is moderately dilated. ?Mild concentric left ventricular h ypertrophy is observed. ?Global left ventricular systolic f unction is moderately reduced. ?The quantitative left ventricular ejection fraction by biplane Murguia's method is 35%. ?There is diffuse hypokinesis prese nt. ?Doppler assessment is consistent w ith normal left sided filling pressure. ?The ??basal anteroseptal, basal an terior, basal anterolateral, basal inferolateral, basal inferior, basal inf eroseptal, mid anteroseptal, mid anterior, mid anterolateral, mid inferol ateral, mid inferior, mid inferoseptal, apical septal, apical ante rior, apical lateral, and apical inferior wall segments are hypoki netic (score 2). ?Overall wallmotion score index is ??2.00 Left Atrium: ? The left atrium is se verely dilated.55 ml/m2 Right Ventricle: ? The right ventric le is mildly dilated. ?Right ventricular global systolic function is moderately reduced. ?Pulmonary artery hypertension coul d not be assessed due to inadequate tricuspid regurgitation jet. Right Atrium: ? The right atrium is moderately dilated. Aortic Valve: ? The aortic valve is not well visualized. ?The aortic valve leaflets are mild ly thickened. ?There is no evidence of aortic yolanda ve stenosis. ?Mild (1+/4+) aortic valve regurgit ation is present. Mitral Valve: ? The mitral valve shaista ears normal in structure and function. ?There is mild (1+/4+) mitral regur gitation present. Tricuspid Valve: ? The tricuspid yolanda ve appears normal in structure and function. ?There is trace tricuspid regurgita tion present. Pulmonic Valve: ? The pulmonic valve is not well visualized. ?There is no evidence of pulmonic r egurgitation. Pericardium: ? The pericardium appea rs normal and there is no evidence of a pericardial effusion. Aorta: ? The aortic root is normal i n size. ?The ascending aorta is normal in s ize. Pulmonary Artery: ? The main pulmona ry artery appears normal. Venous: ? The inferior vena cava shaista ears normal in size. ?There is a greater than 50% respir atory change in the inferior vena cava dimension. Misc: ? Technically difficult study. ?See remainder of report for additi onal findings. ?Two-dimensional echo, spectral Dop pler and color Doppler performed. ?Optison contrast (one 3 ml vial) w as used to enhance endocardial definition. Excess contrast was discarde d. Chambers 2D ?Value ?Units (Range) ? IVSd (2D) ? 1.2 ?cm ? LVPWd (2D) ?1.3 ?cm ? IVS:LVPW ratio (2D) 0.9 ?ratio ? RWT (2D) ?0.4 ?ratio ? RWT PW (2D) ? 0.4 ?ratio ? LVIDd (2D) ?6.8 ?cm ? LVIDs (2D) ?5.8 ?cm ? LVIDd (2D) index ?3 ?cm/m2 ? LVIDs (2D) index ?2.5 ?cm/m2 ? LV FS (2D) ?15 ? % ? EF Teichholz (2D) ?? 30 ? % ? Ao root diameter (2D3.7 ?cm (2.1 - 3.6) ? Ascending Ao ?4 ?cm (2 - 3.5) ? Volumes/Mass ?Value ?Units (Range) ? LA Area 4 CH ?31 ? cm2 (<21) ? RA AREA 4CH ? 28 ? cm2 ? LA ESV BP (MOD) inde55.2 ? ml/m2 ? LV ESV SP 4CH (MOD) 198 ?ml ? LV ESV SP 2CH (MOD) 176 ?ml ? LV EDV BP ? 280 ?ml ? LV ESV BP ? 187 ?ml ? LV EDV BP index ? 121.7 ?ml/m2 ? LV ESV BP index ? 81.3 ? ml/m2 ? BP EF (MOD) ? 33 ? % ? LV mass (2D) ?410.2 ?g ? LV mass (2D) index ??178.4 ?g/m2 ? Diastolic/Systolic Function ?Value ?Units (Range) ? MV E-wave Vmax ?0.8 ?m/sec ? MV deceleration jsqo401 ?msec ? MV A-wave Vmax ?0.3 ?m/sec ? MV E:A ratio ?2.6 ?ratio ? LV E:e' septal ratio15.2 ? ratio ? LV E:e' lateral rati10.6 ? ratio ? Tricuspid Valve ?Value ?Units (Range) ? RAP ? 3 ?mmHg ? Wall Motion: Segment Name ?Rest ? Base-Anteroseptal ?? Hypokinetic ? Base-Anterior ? Hypokinetic ? Base-Anterolateral ??Hypokinetic ? Base-Posterolateral Hypokinetic ? Base-Inferior ? Hypokinetic ? Base-Inferoseptal ?? Hypokinetic ? Mid-Anteroseptal ?Hypokinetic ? Mid-Anterior ?Hypokinetic ? Mid-Anterolateral ?? Hypokinetic ? Mid-Posterolateral ??Hypokinetic ? Mid-Inferior ?Hypokinetic ? Mid-Inferoseptal ?Hypokinetic ? [place]-Septal ? Hypokinetic ? [place]-Anterior ? Hypokinetic ? [place]-Lateral ?Hypokinetic ? [place]-Inferior ? Hypokinetic ? [place]-Tip ?Hypokinetic ? This report has been electronically sign ed by: _ Rafael Givens MD ? 09/11/2017 13 :41:22 Images reviewed and interpretation verif ied [facility] Cardiac Ultrasound Laboratory Procedure Note Rafael Givens MD - 09/11/2017Formatt ing of this note might be different from the original. Procedure: Transthoracic Echocardiogram Patient: SERGE Reyez (Age): [birth year](72y) Med Rec#: [id number] Sex: M [place] [facility] Ht / Wt: 168(cm)/126(kg) Pt. Loc: Adult Floor BSA: 2.3 Study Date: 09/11/2017 Pt. Type: Inpatie nt Tape: Referring: JACY BRUNO E Referring: Duke Olivier ([id number]) Reading: Rafael Givens ([id number]) Insight Leader: Jacy Chan [facility] Diagnosis: *ICD-10-PCS Heart failure, unspecified (I50.9) BP: 130/53 SUMMARY: 1. The left ventricle is moderately dila segun. Mild concentric left ventricular hypertrophy is observed. Jayne bal left ventricular systolic function is moderately reduced. The leonidas titative left ventricular ejection fraction by biplane Murguia's m ethod is 35%. 2. The left atrium is severely dilated. The right atrium is moderately dilated. 3. The right ventricle is mildly dilated . Right ventricular global systolic function is moderately reduced. 4. The aortic valve leaflets are mildly thickened. Mild (1+/4+) aortic valve regurgitation is present. 5. There is mild (1+/4+) mitral regurgit ation present. 6. There is trace tricuspid regurgitatio n present. 7. The pericardium appears normal and th ere is no evidence of a pericardial effusion. 8. Since prior study in 2011, LV and RV function are now worse. Findings : Left Ventricle: The left ventricle is mo derately dilated. Mild concentric left ventricular hypert rophy is observed. Global left ventricular systolic functi on is moderately reduced. The quantitative left ventricular eject ion fraction by biplane Murguia's method is 35%. There is diffuse hypokinesis present. Doppler assessment is consistent with n ormal left sided filling pressure. The basal anteroseptal, basal anterior, basal anterolateral, basal inferolateral, basal inferior, basal inf eroseptal, mid anteroseptal, mid anterior, mid anterolateral, mid inferol ateral, mid inferior, mid inferoseptal, apical septal, apical ante rior, apical lateral, and apical inferior wall segments are hypoki netic (score 2). Overall wallmotion score index is 2.00 Left Atrium: The left atrium is severely dilated.55 ml/m2 Right Ventricle: The right ventricle is mildly dilated. Right ventricular global systolic funct ion is moderately reduced. Pulmonary artery hypertension could not be assessed due to inadequate tricuspid regurgitation jet. Right Atrium: The right atrium is modera tely dilated. Aortic Valve: The aortic valve is not we ll visualized. The aortic valve leaflets are mildly th ickened. There is no evidence of aortic valve st enosis. Mild (1+/4+) aortic valve regurgitation is present. Mitral Valve: The mitral valve appears n ormal in structure and function. There is mild (1+/4+) mitral regurgitat ion present. Tricuspid Valve: The tricuspid valve shaista ears normal in structure and function. There is trace tricuspid regurgitation present. Pulmonic Valve: The pulmonic valve is no t well visualized. There is no evidence of pulmonic regurg itation. Pericardium: The pericardium appears nor mal and there is no evidence of a pericardial effusion. Aorta: The aortic root is normal in size . The ascending aorta is normal in size. Pulmonary Artery: The main pulmonary art gina appears normal. Venous: The inferior vena cava appears n ormal in size. There is a greater than 50% respiratory change in the inferior vena cava dimension. Misc: Technically difficult study. See remainder of report for additional findings. Two-dimensional echo, spectral Doppler and color Doppler performed. Optison contrast (one 3 ml vial) was us ed to enhance endocardial definition. Excess contrast was discarde d. Chambers 2D Value Units (Range) IVSd (2D) 1.2 cm LVPWd (2D) 1.3 cm IVS:LVPW ratio (2D) 0.9 ratio RWT (2D) 0.4 ratio RWT PW (2D) 0.4 ratio LVIDd (2D) 6.8 cm LVIDs (2D) 5.8 cm LVIDd (2D) index 3 cm/m2 LVIDs (2D) index 2.5 cm/m2 LV FS (2D) 15 % EF Teichholz (2D) 30 % Ao root diameter (2D3.7 cm (2.1 - 3.6) Ascending Ao 4 cm (2 - 3.5) Volumes/Mass Value Units (Range) LA Area 4 CH 31 cm2 (<21) RA AREA 4CH 28 cm2 LA ESV BP (MOD) inde55.2 ml/m2 LV ESV SP 4CH (MOD) 198 ml LV ESV SP 2CH (MOD) 176 ml LV EDV BP 280 ml LV ESV BP 187 ml LV EDV BP index 121.7 ml/m2 LV ESV BP index 81.3 ml/m2 BP EF (MOD) 33 % LV mass (2D) 410.2 g LV mass (2D) index 178.4 g/m2 Diastolic/Systolic Function Value Units (Range) MV E-wave Vmax 0.8 m/sec MV deceleration syat991 msec MV A-wave Vmax 0.3 m/sec MV E:A ratio 2.6 ratio LV E:e' septal ratio15.2 ratio LV E:e' lateral rati10.6 ratio Tricuspid Valve Value Units (Range) RAP 3 mmHg Wall Motion: Segment Name Rest Base-Anteroseptal Hypokinetic Base-Anterior Hypokinetic Base-Anterolateral Hypokinetic Base-Posterolateral Hypokinetic Base-Inferior Hypokinetic Base-Inferoseptal Hypokinetic Mid-Anteroseptal Hypokinetic Mid-Anterior Hypokinetic Mid-Anterolateral Hypokinetic Mid-Posterolateral Hypokinetic Mid-Inferior Hypokinetic Mid-Inferoseptal Hypokinetic [place]-Septal Hypokinetic [place]-Anterior Hypokinetic [place]-Lateral Hypokinetic [place]-Inferior Hypokinetic [place]-Tip Hypokinetic This report has been electronically sign ed by: _ Rafael Givens MD 09/11/2017 13:41:22 Images [facility] Duke Olivier MD ECHO ORDERABLES Performing Organization Address City/State/ZIP Code Phon e Number [facility] POCT Glucose (09/11/2017 11:45 AM EST) athologist Signature POC Glucose 146 65 - 199 [facility] mg/dL [facility] Comment: Supplemental ranges: <140 mg/dL before meals <180 mg/dL all other times of the day Specimen Anatomical Collection Method Collection Time Receive d Time (Source) Location / / Volume Laterality Blood specimen 09/11/2017 11:45 7 (specimen) AM EST 11:45 AM EST Karyn Soliz MD POINT OF CARE TEST ORDERABLE S Performing Organization Address City/[facility]/ZIP [facility] [place] [address] (ABNORMAL) Cardiac Enzymes (LEB/CGP) (09/11/2017 10:46 AM EST) athologist Signature Troponin-T 0.03 (H) 0.00 - [facility] 0.00 ng/mL [facility] Comment: The 99th percentile for Troponin T is le ss than 0.01 ng/mL, any detectable cTnT concentration using this assay should be considered elevated. According to the third universal definit ion of myocardial infarction the following criteria with a clinical prese ntation consistent with acute myocardial ischemia meets the diagnosis for a myocardial infarction (OR). Detection of a rise and/or fall of cTnT, with at least one value greater than the 99th percentile (> or = 0.01) and wi th at least one of the following ?? Symptoms of ischemia ?? New or presumed new significant ST-se gment-T wave (ST-T) changes or new left bundle branch block (LBBB) ?? Development of pathologic Q waves in the ECG ?? Imaging evidence of new loss of viabl e myocardium or new regional wall motion abnormality ?? Identification of an intracoronary th rombus by angiography or autopsy Samples for cTnT testing should be obtai alberto serially upon first assessment and again 3 to 6 hours later. If the clinica l suspicion is high and previous samples have been negative an additional sample may be indicated. Reference: Third [place] Definition of Myocardial Infarction. Journal of the [place] [employer] 2012;60:1581-98 CK, Total 202 (H) 0 - 200 unit/L [facility] Specimen Anatomical Collection Method Collection Time Receive d Time (Source) Location / / Volume Laterality Blood specimen 09/11/2017 10:46 7 (specimen) AM EST 10:53 AM EST Resulting Agency Comment Spec In Lab Duke Olivier MD CHEMISTRY ORDERABLES Performing Organization Address City/State/ZIP Code Phon e Number [address] POCT Glucose (09/11/2017 7:32 AM EST) athologist Signature POC Glucose 124 65 - 199 [facility] mg/dL [facility] Comment: Supplemental ranges: <140 mg/dL before meals <180 mg/dL all other times of the day Specimen Anatomical Collection Method Collection Time Receive d Time (Source) Location / / Volume Laterality Blood specimen 09/11/2017 7:32 AM 017 7:32 (specimen) EST AM EST Karyn Soliz MD POINT OF CARE TEST ORDERABLE S Performing Organization Address City/State/[place] [address] (ABNORMAL) Basic Metabolic Panel (non-fasting) (09/11/2017 5:05 AM EST) P athologist Signature Glucose Lvl 110 65 - 199 [facility] mg/dL [facility] Comment: Diabetes: >=200 mg/dL plus symp toms BUN 33 (H) 10 - 20 mg/dL [facility] Creatinine 1.52 (H) 0.80 - 1.50 mg/dL [facility] Sodium 140 135 - 145 mmol/L [facility] Potassium 4.1 3.5 - 5.0 mmol/L [facility] Comment: Please note: ??Patients with WBC >100,00 0 may have falsely elevated Potassium levels. ??For accurate Potassium quantif ication in these patients send serum separator tube (gold top) for subsequent determinations. ??Contact the Clinical Chemistry Laboratory if there are any qu estions. Chloride 99 98 - 107 mmol/L [facility] CO2 Not Perf 22 - 31 mmol/L [facility] Comment: Add-on request. Sample too old to perform test. Anion Gap Unable to Calculate 5 - 15 mmol/L [facility] Calcium 9.2 8.5 - 10.5 mg/dL [facility] Estimated GFR 46 (L) >=60 [facility] Comment: The reported eGFR should be multiplied b y 1.2 for patients. The MDRD is not an appropriate measure o f renal function for patients with body mass extremes or in patients with acute kidney failure. http://[employer]/DHnkdep http://ebookpie/DHMCnkf Specimen Anatomical Collection Method Collection Time Receive d Time (Source) Location / / Volume Laterality Blood specimen Venous Draw / 09/11/2017 5:05 AM 2016 5:47 (specimen) Unknown EST AM EST Resulting Agency Comment Spec In Lab Duke Olivier MD CHEMISTRY ORDERABLES Performing Organization Address City/State/[place] [address] Lavender Tube HOLD (09/11/2017 5:05 AM EST) Patholo gist Method Time Signature Lavender Hold Sample in [facility] lab. [facility] Specimen Anatomical Collection Method Collection Time Receive d Time (Source) Location / / Volume Laterality Blood specimen Venous Draw / 09/11/2017 5:05 AM 2016 5:43 (specimen) Unknown EST AM EST Duke Olivier MD HEMATOLOGY ORDERABLES Performing Organization Address City/State/[place] [address] (ABNORMAL) Cardiac Enzymes (LEB/CGP) (09/11/2017 5:05 AM EST) P athologist Signature Troponin-T 0.03 (H) 0.00 - [facility] 0.00 ng/mL [facility] Comment: The 99th percentile for Troponin T is le ss than 0.01 ng/mL, any detectable cTnT concentration using this assay should be considered elevated. According to the third universal definit ion of myocardial infarction the following criteria with a clinical prese ntation consistent with acute myocardial ischemia meets the diagnosis for a myocardial infarction (OR). Detection of a rise and/or fall of cTnT, with at least one value greater than the 99th percentile (> or = 0.01) and wi th at least one of the following ?? Symptoms of ischemia ?? New or presumed new significant ST-se gment-T wave (ST-T) changes or new left bundle branch block (LBBB) ?? Development of pathologic Q waves in the ECG ?? Imaging evidence of new loss of viabl e myocardium or new regional wall motion abnormality ?? Identification of an intracoronary th rombus by angiography or autopsy Samples for cTnT testing should be obtai alberto serially upon first assessment and again 3 to 6 hours later. If the clinica l suspicion is high and previous samples have been negative an additional sample may be indicated. Reference: Third [place] Definition of Myocardial Infarction. Journal of the [place] [employer] 2012;60:1581-98 CK, Total 182 0 - 200 unit/L [facility] Specimen Anatomical Collection Method Collection Time Receive d Time (Source) Location / / Volume Laterality Blood specimen 09/11/2017 5:05 AM 017 5:43 (specimen) EST AM EST Resulting Agency Comment Spec In Lab Duke Olivier MD CHEMISTRY ORDERABLES Performing Organization Address City/State/[place] [address] POCT Glucose (09/11/2017 5:04 AM EST) P athologist Signature POC Glucose 107 65 - 199 [facility]/dL [facility] Comment: Supplemental ranges: <140 mg/dL before meals <180 mg/dL all other times of the day Specimen Anatomical Collection Method Collection Time Receive d Time (Source) Location / / Volume Laterality Blood specimen 09/11/2017 5:04 AM 017 5:04 (specimen) EST AM EST Duke Olivier MD POINT OF CARE TEST ORDERABLE S Performing Organization Address City/[facility]/ZIP [place] [address] POCT Glucose (09/11/2017 12:49 AM EST) athologist Signature POC Glucose 96 65 - 199 [facility] mg/dL [facility] Comment: Supplemental ranges: <140 mg/dL before meals <180 mg/dL all other times of the day Specimen Anatomical Collection Method Collection Time Receive d Time (Source) Location / / Volume Laterality Blood specimen 09/11/2017 12:49 7 (specimen) AM EST 12:49 AM EST Duke Olivier MD POINT OF CARE TEST ORDERABLE S Performing Organization Address City/[facility]/ZIP [place] [address] EKG 12 Lead (09/11/2017 12:27 AM EST) Component Value Ref Range Test Analysis Performed Pathologis t Method Time At Signature Ventricular rate 76 BPM MUSE SYSTEM Atrial Rate 76 BPM MUSE SYSTEM P-R Interval 182 ms MUSE SYSTEM QRS Duration 100 ms MUSE SYSTEM Q-T Interval 432 ms MUSE SYSTEM QTC Calculated 486 ms MUSE SYSTEM (Bezet) Calculated P Flatgap 36 degrees MUSE SYSTEM Calculated R Flatgap 30 degrees MUSE SYSTEM Calculated T Flatgap 35 degrees MUSE SYSTEM INTERPRETATION Normal sinus rhythm MUSE SYSTEM Nonspecific T wave abnormality Prolonged QT Abnormal ECG When compared with ECG of 05-MAY-2012 07:34, No significant change was found Confirmed by MD KASSANDRA, CHALO ([id number]) on 09/11/2017 7:24:45 PM Specimen Anatomical Collection Method Collection Time Receive d Time (Source) Location / / Volume Laterality 09/11/2017 12:27 09/11/2017 7:24 AM EST PM EST Duke Olivier MD ECG ORDERABLES Performing Organization Address City/State/ZIP Code Phon e Number MUSE SYSTEM XR Chest PA & Lateral (Generic) (09/10/2017 11:53 PM EST) Anatomical Region Laterality Modality Chest N/A Digital Radiography Specimen (Source) Anatomical Location Collection Method / Collectio n Time Received Time / Laterality Volume Impressions 09/11/2017 12:17 AM EST Stable mild cardiomegaly. No radiographic evidence of pulmonary ed mario. Narrative 09/11/2017 12:17 AM EST EXAMINATION: XR CHEST PA AND LATERAL (GENERIC) CLINICAL HISTORY: 72 w/clinical signs of HF, ?pulmonary edema TECHNIQUE: 2 views COMPARISON: May 03, 2012 FINDINGS: There is stable enlargement of the cardi ac silhouette. 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 No pulmonary edema or bilateral pl eural effusions. Minimal streaky bibasilar opacities are most compatible with atelectasis. No pneumothorax. Procedure Note Marlene Valadez MD - 09/11/2017 EXAMINATION: XR CHEST PA AND LATERAL (GE NERIC) CLINICAL HISTORY: 72 w/clinical signs of HF, ?pulmonary edema TECHNIQUE: 2 views COMPARISON: May 03, 2012 FINDINGS: There is stable enlargement of the cardi ac silhouette. 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 No pulmonary edema or bilateral pl eural effusions. Minimal streaky bibasilar opacities are most compatible with atelectasis. No pneumothorax. IMPRESSION Stable mild cardiomegaly. No radiographic evidence of pulmonary ed mario. Duke Olivier MD IMG DX ORDERABLES (ABNORMAL) Differential, Automated (09/10/2017 9:10 PM EST) [facility] Method Time Signature Neutrophils % 80.3 % [facility] Neutr Abs (ANC) 10.50 (H) 1.70 - [facility] 6.10 [facility] x10(3)/[facility] L LABORATORY Lymphocytes % 10.0 % [facility] Lymphocytes Abs 1.3 0.9 - 3.2 [facility] x10(3)/[facility] LABORATORY Monocytes % 7.7 % [facility] Monocyte Abs 1.0 (H) 0.3 - 0.9 [facility] x10(3)/[facility] LABORATORY Eosinophils % 1.1 % [facility] Eosinophils Abs 0.1 0.0 - 0.4 [facility] x10(3)/[facility] LABORATORY Basophils % 0.4 % [facility] Basophils Abs 0.0 0.0 - 0.1 [facility] x10(3)/[facility] LABORATORY Immature Gran % 0.50 % [facility] Comment: Immature granulocytes(IG's)percentage an d absolute count will include metamyelocytes, myelocytes, and promyelo cytes. Blood smears from CBCs yielding IG's will be scanned manually for concor dance. If this scan disagrees with the automated IG or if promyelocytes are not ed, a manual differential will be performed. Kayla Gran Abs 0.07 (H) 0.00 - 0.04 x10(3)/[facility] LABORATORY Specimen Anatomical Collection Method Collection Time Receive d Time (Source) Location / / Volume Laterality Blood specimen 09/10/2017 9:10 PM 017 9:19 (specimen) EST PM EST Resulting Agency Comment Spec In Lab Duke Olivier MD HEMATOLOGY ORDERABLES Performing Organization Address City/State/[place] [address] (ABNORMAL) Hemogram (09/10/2017 9:10 PM EST) Analysis Performed At Patho logist Time Signature WBC 13.1 (H) 4.0 - 9.5 [facility] x10(3)/[facility] LABORATORY RBC 4.38 (L) 4.58 - [facility] 5.54 [facility] x10(6)/[facility] LABORATORY Hemoglobin 12.2 (L) 13.7 - [facility] [place] 16.5 gm/dL [facility] Hematocrit 38.5 (L) 40.5 - [facility] [place] 48.5 % [facility] MCV 87.9 82.9 - [facility] 93.1 [facility] MCH 27.9 27.5 - [facility] [place] 32.1 pg [facility] MCHC 31.7 (L) 32.0 - [facility] [place] 35.7 gm/dL [facility] Platelets 184 145 - 357 [facility] x10(3)/[facility] LABORATORY RDWSD 47.5 (H) 36.0 - [facility] 45.0 [facility] LABORATORY RDWCV 14.6 (H) 11.4 - [facility] 13.8 % [facility] MPV 10.4 7.6 - 12.9 [facility] LABORATORY nRBC % Auto 0.0 % [facility] nRBC Abs Auto 0.000 0.000 - [facility] [place] 0.000 [facility] x10(3)/[facility] LABORATORY Specimen Anatomical Collection Method Collection Time Receive d Time (Source) Location / / Volume Laterality Blood specimen 09/10/2017 9:10 PM 017 9:19 (specimen) EST PM EST Resulting Agency Comment Spec In Lab Duke Olivier MD HEMATOLOGY ORDERABLES Performing Organization Address City/State/Z[place] [address] (ABNORMAL) Cardiac Enzymes (LEB/CGP) (09/10/2017 9:10 PM EST) P athologist Signature Troponin-T 0.04 (H) 0.00 - [facility] [place] 0.00 ng/mL [facility] Comment: The 99th percentile for Troponin T is le ss than 0.01 ng/mL, any detectable cTnT concentration using this assay should be considered elevated. According to the third universal definit ion of myocardial infarction the following criteria with a clinical prese ntation consistent with acute myocardial ischemia meets the diagnosis for a myocardial infarction (OR). Detection of a rise and/or fall of cTnT, with at least one value greater than the 99th percentile (> or = 0.01) and wi th at least one of the following ?? Symptoms of ischemia ?? New or presumed new significant ST-se gment-T wave (ST-T) changes or new left bundle branch block (LBBB) ?? Development of pathologic Q waves in the ECG ?? Imaging evidence of new loss of viabl e myocardium or new regional wall motion abnormality ?? Identification of an intracoronary th rombus by angiography or autopsy Samples for cTnT testing should be obtai alberto serially upon first assessment and again 3 to 6 hours later. If the clinica l suspicion is high and previous samples have been negative an additional sample may be indicated. Reference: Third [place] Definition of Myocardial Infarction. Journal of the [place] [employer] 2012;60:1581-98 CK, Total 195 0 - 200 unit/L [facility] Specimen Anatomical Collection Method Collection Time Receive d Time (Source) Location / / Volume Laterality Blood specimen 09/10/2017 9:10 PM 017 (specimen) EST 11:24 PM EST Resulting Agency Comment Spec In Lab Duke Olivier MD CHEMISTRY ORDERABLES Performing Organization Address City/[facility]/ZIP Code Phon e Number [address] LDL Cholesterol, Direct (09/10/2017 9:10 PM EST) P athologist Signature LDL Chol 99 <=190 [facility] Direct mg/dL [facility] Specimen Anatomical Collection Method Collection Time Receive d Time (Source) Location / / Volume Laterality Blood specimen 09/10/2017 9:10 PM 017 (specimen) EST 11:24 PM EST Resulting Agency Comment Spec In Lab Duke Olivier MD CHEMISTRY ORDERABLES Performing Organization Address City/[facility]/ZIP [facility] Phon e Number [address] HDL/Cholesterol Profile (09/10/2017 9:10 PM EST) Patholo gist Method Time Signature Chol, Total 155 <=239 [facility] mg/dL [facility] HDL 43 >=40 [facility] mg/dL [facility] Chol/HDL Ratio 3.6 ratio [facility] Chol/HDL See Note [facility] Comment: Lipid management should be guided by a p atient? s ASCVD risk, goals and preferences. ACC/AHA Guidelines recommend high intens ity statin if clinical ASCVD or LDL greater than or equal to 190 mg/dL. http://[employer].com/GWA-NRD-Iflrjzjtb Measure LDL if Total Cholesterol minus H DL Cholesterol is greater than 220 mg/dL. Adults aged 40-75 with LDL 70-189 mg/dL should have their 10 year ASCVD risk estimated with the ACC/AHA ASCVD risk es timator http://tools.acc.org/DHDEA-Swuo-Vhtpjosr r/ Statin should be discussed if risk great er than or equal to 7.5% in non-diabetics. With diabetes, moderate i ntensity statin is recommended if risk less than 7.5%, high intensity if risk g reater than or equal to 7.5%. Annual lipid monitoring on statins is no t necessary. Lifestyle modification is a critical com ponent of ASCVD risk reduction. Specimen Anatomical Collection Method Collection Time Receive d Time (Source) Location / / Volume Laterality Blood specimen 09/10/2017 9:10 PM 017 (specimen) EST 11:24 PM EST Resulting Agency Comment Spec In Lab Duke Olivier MD CHEMISTRY ORDERABLES Performing Organization Address City/State/[place] [address] (ABNORMAL) Hemoglobin A1c (09/10/2017 9:10 PM EST) Analysis Performed At Patho logist Time Signature Hemoglobin A1C 7.2 (H) 4.3 - 5.6 [facility] Comment: Reference Range: 4.3 - 5.6% 5.7 - 6.4% - Increased Risk of Developin g Diabetes Mellitus >= 6.5% - Consistent with diagnosis of D iabetes Mellitus In the absence of hyperglycemia (i.e. pl asma glucose > 200 mg/dL) or classic symptoms of hyperglycemia a repeat measu rement of HbA1c should be performed on a separate sample to confirm the diagnos is. Diagnosis and Classification of Diabetes Mellitus, Diabetes Care 2013; 36: Suppl. 1, S67-15 Est Avg Gluc See note mg/dL [facility] Comment: Estimated Average Glucose not appropriat e for patients over 70 years of age. eAG equivalents for HbA1c percentages: HbA1c(%) ?eAG(mg/dL) 6.0 ?126 6.5 ?140 7.0 ?154 7.5 ?169 8.0 ?183 8.5 ?197 9.0 ?212 9.5 ?226 10.0 ? 240 Limitations: The eAG calculation has not been validated on women, individuals below 18 years old and above 70 years old, and individuals with hemoglobinopathies. Additional resources are available on [facility] ADA website. [place] WILKS, Orlando J, Jean R, et al. ??Tr anslating the A1C assay into estimated average glucose values. ??Diabetes Care 2008:31(8):4455-6512. Specimen Anatomical Collection Method Collection Time Receive d Time (Source) Location / / Volume Laterality Blood specimen 09/10/2017 9:10 PM 017 (specimen) EST 11:25 PM EST Resulting Agency Comment Spec In Lab Duke Olivier MD CHEMISTRY ORDERABLES Performing Organization Address City/State/ZIP Code Phon e Number [place] [address] TSH (09/10/2017 9:10 PM EST) P athologist Signature TSH 3.16 0.27 - 4.20 [facility] [place] mlU/ML [facility] Specimen Anatomical Collection Method Collection Time Receive d Time (Source) Location / / Volume Laterality Blood specimen 09/10/2017 9:10 PM 017 (specimen) EST 11:24 PM EST Resulting Agency Comment Spec In Lab Duke Olivier MD CHEMISTRY ORDERABLES Performing Organization Address City/State/ZIP Code Phon e Number [address] Magnesium (09/10/2017 9:10 PM EST) P athologist Signature Magnesium 0.88 0.69 - 1.07 [facility] mmol/L [facility] Specimen Anatomical Collection Method Collection Time Receive d Time (Source) Location / / Volume Laterality Blood specimen 09/10/2017 9:10 PM 017 (specimen) EST 11:24 PM EST Resulting Agency Comment Spec In Lab Duke Olivier MD CHEMISTRY ORDERABLES Performing Organization Address City/[facility] Code Phon e Number [address] (ABNORMAL) Comprehensive metabolic panel (non-fasting) (09/10/2017 9:10 PM EST) athologist Signature Glucose Lvl 118 65 - 199 [facility] mg/dL [facility] Comment: Diabetes: >=200 mg/dL plus symp toms BUN 35 (H) 10 - 20 mg/dL [facility] Creatinine 1.53 (H) 0.80 - 1.50 mg/dL [facility] Sodium 140 135 - 145 mmol/L [facility] Potassium 4.6 3.5 - 5.0 mmol/L [facility] Comment: Please note: ??Patients with WBC >100,00 0 may have falsely elevated Potassium levels. ??For accurate Potassium quantif ication in these patients send serum separator tube (gold top) for subsequent determinations. ??Contact the Clinical Chemistry Laboratory if there are any qu estions. Chloride 101 98 - 107 mmol/L [facility] CO2 27 22 - 31 mmol/L [facility] Anion Gap 12 5 - 15 mmol/L [facility] Calcium 9.4 8.5 - 10.5 mg/dL [facility] Total Protein 7.0 6.1 - 8.0 gm/dL [facility] Albumin 4.1 3.2 - 5.2 gm/dL [facility] AST 21 0 - 39 unit/L [facility] ALT 26 0 - 55 unit/L [facility] Alk Phos 84 40 - 120 unit/L [facility] Total Bilirubin 0.5 0.2 - 1.3 mg/dL [facility] Estimated GFR 45 (L) >=60 [facility] Comment: The reported eGFR should be multiplied b y 1.2 for patients. The MDRD is not an appropriate measure o f renal function for patients with body mass extremes or in patients with acute kidney failure. http://ebookpie/DHnkdep http://ebookpie/DHMCnkf Specimen Anatomical Collection Method Collection Time Receive d Time (Source) Location / / Volume Laterality Blood specimen 09/10/2017 9:10 PM 017 9:19 (specimen) EST PM EST Resulting Agency Comment Spec In Lab Duke Olivier MD CHEMISTRY ORDERABLES Performing Organization Address City/State/ZIP Code Phon e Number [address] (ABNORMAL) pro-Brain Natriuretic Peptide (09/10/2017 9:10 PM EST) P athologist Signature ProBNP 2,704 (H) <=125 [facility] pg/mL [facility] Specimen Anatomical Collection Method Collection Time Receive d Time (Source) Location / / Volume Laterality Blood specimen 09/10/2017 9:10 PM 017 (specimen) EST 11:24 PM EST Resulting Agency Comment Spec In Lab Duke Olivier MD CHEMISTRY ORDERABLES Performing Organization Address City/[facility]/ZIP Code Phon e Number [address] documented in this encounter Visit Diagnoses Diagnosis Heart failure, unspecified heart failure chronicity, unspecified heart failure type ASCVD (arteriosclerotic cardiovascular d isease) Unspecified cardiovascular disease NSTEMI (non-ST elevated myocardial infar ction) Acute myocardial infarction, subendocard ial infarction, episode of care unspecified Heart failure Heart failure, unspecified documented in this encounter Administered Medications Inactive Administered Medications - up to 3 most recent administrations Medication Order MAR Action Action Date Dose Rate Site allopurinol (ZYLOPRIM) tablet 100 Given 09/15/2017 8:23 AM EST 1 00 mg mg 100 mg, Oral, DAILY, First dose on Thu09/11/17 at 0900, Until Discontinued, Routine Given 09/14/2017 8:10 AM EST 100 mg Given 09/13/2017 8:25 AM EST 100 mg aspirin EC tablet 81 mg Given 09/15/2017 8:28 AM EST 81 mg 81 mg, Oral, DAILY, First dose on Thu09/11/17 at 0900, Until Discontinued, Routine Given 09/14/2017 8:09 AM EST 81 mg Given 09/13/2017 8:26 AM EST 81 mg atorvastatin (LIPITOR) tablet 80 mg Given 09/13/2017 5:24 PM EST 80 mg 80 mg, Oral, EVERY EVENING, First dose on Thu09/11/17 at 1700, Until Discontinued, Routine Given 09/12/2017 5:11 PM EST 80 mg Given 09/11/2017 4:58 PM EST 80 mg budesonide-formoterol (SYMBICORT) Given 09/15/2017 8:22 AM EST 2 Inhalation 160-4.5 mcg/actuation inhaler 2 Inhalation 2 Inhalation, Inhalation, 2 TIMES DAILY, First dose on Thu09/10/17 at 2300, Until Discontinued, Routine Given 09/14/2017 8:33 PM EST 2 Inhalation Given 09/14/2017 8:17 AM EST 2 Inhalation buPROPion (WELLBUTRIN SR) SR tablet 100 mg Given 09/15/2017 8:24 AM EST 100 mg 100 mg, Oral, EVERY MORNING, First dose on Thu09/11/17 at 0900, Until Discontinued, DO NOT CRUSH OR OPEN, Routine Given 09/14/2017 8:05 AM EST 100 mg Given 09/13/2017 8:30 AM EST 100 mg carvedilol (COREG) tablet 6.25 mg Given 09/15/2017 8:23 AM EST 6.25 mg 6.25 mg, Oral, 2 TIMES DAILY WITH MEALS, First dose on Thu09/11/17 at 0800, Until Discontinued, Routine Given 09/14/2017 8:10 AM EST 6.25 mg Given 09/13/2017 5:24 PM EST 6.25 mg clopidogrel (PLAVIX) tablet 300 mg Given 09/12/2017 11:37 AM EST 300 mg 300 mg, Oral, ONCE, 1 dose, On 09/12/17 at 1115, Routine clopidogrel (PLAVIX) tablet 75 mg Given 09/15/2017 8:23 AM EST 75 mg 75 mg, Oral, DAILY, First dose on Thu09/13/17 at 0900, Until Discontinued, Routine Given 09/14/2017 10:02 AM EST 75 mg Given 09/13/2017 8:26 AM EST 75 mg dextrose 50% IV syringe 25-50 mL 25-50 mL (12.5-25 g), Intravenous, EVERY 1 HOUR PRN, Starting on Magaly 09/10/17 at 2200, Until Thu09/15/17 at 1611, Low bl ood sugar, For BG 50-70: 120 mL Juice or Regular (not diet) soda OR 12.5 gram (25 mL) Dextrose 50% IV OR, if no IV access, 1 mg Glucagon IM. Recheck BG in 30 minut es. May repeat juice, dextrose or glucagon once per episode For BG less than 50: 240 mL Juice or Regular (not diet) soda OR 25 grams (50 mL) Dextrose 50% IV OR, if no IV access, 1 mg Glucagon IM. Recheck BG in 30 minutes. May repeat juice, dext martínez, or glucagon once per episode. To avoid extravasation, push Dextrose 50% SLOWLY (3 mL ov er 1 minute) in a patent, running IV, preferably a central line. For persisten t hypoglycemia, consider longer-acting treatment for the duration of the active insulin., Routine docusate sodium (COLACE) capsule 100 mg Given 09/14/2017 8:33 PM EST 100 mg 100 mg, Oral, 2 TIMES DAILY, First dose (after last modification) on Thu09/11/17 at 1115, Until Discontinued, Routine Given 09/14/2017 8:11 AM EST 100 mg Given 09/13/2017 8:13 PM EST 100 mg DULoxetine (CYMBALTA) capsule 60 mg Given 09/15/2017 8:23 AM EST 60 mg 60 mg, Oral, 2 TIMES DAILY, First dose on Magaly 09/10/17 at 2300, Until Discontinued, Routine Given 09/14/2017 8:33 PM EST 60 mg Given 09/14/2017 8:04 AM EST 60 mg felodipine (PLENDIL) tablet 5 mg Given 09/15/2017 8:23 AM EST 5 mg 5 mg, Oral, EVERY MORNING, First dose on Thu09/11/17 at 0900, Until Discontinued Given 09/14/2017 8:05 AM EST 5 mg Given 09/13/2017 8:29 AM EST 5 mg furosemide (LASIX) injection 80 mg Given 09/10/2017 9:37 PM EST 80 mg 80 mg, Intravenous, ONCE, 1 dose, On Magaly 09/10/17 at 2130, Routine furosemide (LASIX) injection 80 mg Given 09/11/2017 7:56 AM EST 80 mg 80 mg, Intravenous, ONCE, 1 dose, On Thu09/11/17 at 0745, Routine furosemide (LASIX) injection 80 mg Given 09/11/2017 11:49 PM EST 80 mg 80 mg, Intravenous, ONCE, 1 dose, On 09/12/17 at 0000, Routine furosemide (LASIX) injection 80 mg Given 09/12/2017 12:10 PM EST 80 mg 80 mg, Intravenous, ONCE, 1 dose, On 09/12/17 at 1215, Routine glucagon (human recombinant) injection S olR 1 mg 1 mg, Intramuscular, EVERY 1 HOUR PRN, S tarting on Thu09/10/17 at 2200, Until Thu09/15/17 at 1611, Low blood sugar, For BG 50-70: 120 mL Juice or Regular (not diet) soda OR 12.5 gram (25 mL) Dextrose 50% IV OR, if no IV access, 1 mg Glucagon IM. Recheck BG in 30 minutes. May repeat juice, dext martínez or glucagon once per episode For BG less than 50: 240 mL Ju ice or Regular (not diet) soda OR 25 grams (50 mL) Dextrose 50% IV OR, if no IV acc ess, 1 mg Glucagon IM. Recheck BG in 30 minutes. May repeat juice, dextrose, or glucagon once per episode. To avoid extravasation, push Dextrose 50% SLOWLY (3 mL over 1 minute) in a patent, running IV, preferably a central line. For persistent hypogl ycemia, consider longer-acting treatment for the duration of the active insulin., Routine heparin (porcine) injection 0-4,000 Given 09/13/2017 4:05 PM EST 2,000 Units Units 0-4,000 Units, Intravenous, BOLUS PER HEPARIN PROTOCOL, Starting on 09/12/17 at 1044, Until 09/14/17 at 2109, Per Protocol, START ADJUSTMENT SCHEDULE 6 HOURS AFTER STARTING INFUSION aPTT Between 60 - 79 seconds: Bolus 2,000 units aPTT Less than 60 seconds: Bolus 4,000 units Increase infusion and recheck aPTT in 6 hours. , Routine Given 09/13/2017 8:58 AM EST 2,000 Units Given 09/12/2017 6:45 PM EST 4,000 Units heparin (Porcine) subcutaneous injection Given 017 9:30 AM EST 5,000 Units 5,000 Units 5,000 Units, Subcutaneous, 2 TIMES DAILY, First dose on Magaly 09/10/17 at 2130, Until Discontinued, Routine Given 09/11/2017 8:40 PM EST 5,000 Units Given 09/11/2017 9:19 AM EST 5,000 Units heparin 25,000 units in New Bag 09/14/2017 10:05 AM 1,950 Units/hr 39 mL/hr dextrose 5% 500 mL infusion EST 0-5,000 Units/hr (0-100 mL/hr), Intravenous, CONTINUOUS, Starting on 09/12/17 at 1115, Until 09/14/17 at 2109, BEGIN infusion at 1,000 units per hr (12 units/kg/hr). MAX INITIAL infusion rate is 1,000 units/hr. Target PTT = 80 - 114 seconds Start adjustment schedule 6 hours after starting infusion. If PTT is: - less than 60 seconds, Administer PRN bolus and increase rate by 450 units per hr (4 units/kg/hr) - 60 - 79 seconds, Administer PRN bolus and increase rate by 250 units per hr (2 units/kg/hr) - 80 - 114 seconds, No Change - 115 - 129 seconds, decrease rate by 100 units per hr (1 units/kg/hr) - 130 - 145 seconds, stop infusion for 30 minutes, then decrease rate by 250 units per hr (2 units/kg/hr) - Greater than 145 seconds, stop infusion for 60 minutes, then decrease rate by 350 units per hour (3 units/kg/hr) Repeat aPTT 6 hours after initiating heparin. Then 6 hours after each dose adjustment. When 2 consecutive aPTT within target range of 80 - 114 seconds, change aPTT to once every 24 hours with A.M. labs while on heparin. RN to order required aPTT - Per Protocol, Routine New Bag 09/13/2017 9:12 PM EST 1,950 Units/hr 39 mL/hr Rate/Dose Change 09/13/2017 4:09 PM EST 1,950 Units/hr 39 mL/hr insulin glargine VIAL injection 30 Units Given 09/15/2017 8:22 AM EST 30 Units 30 Units, Subcutaneous, EVERY MORNING, First dose on Thu09/11/17 at 0700, Until Discontinued, Routine Given 09/14/2017 8:02 AM EST 30 Units Given 09/13/2017 8:29 AM EST 30 Units insulin lispro (humaLOG) VIAL injection Given 09/15/2017 12:20 P M EST 6 Units 3-12 Units 3-12 Units, Subcutaneous, EVERY 4 HOURS SCHEDULED, First dose on Thu09/11/17 at 0000, Until Discontinued, CORRECTION BOLUS Resistant to insulin obese patient or TDD (total daily dose of all insulin needed to achieve glycemic control) greater than 60 units BG 140 - 160 Give 3 units BG 161 - 200 Give 6 units BG 201 - 240 Give 9 units BG greater than 240, give 12 units and recheck BG in 2 hours. If less than 240 after two hours, give no insulin and resume prior schedule. If BG remains greater than 240, repeat 12 units (no more than three times) & call for new basal insulin orders. DO NOT hold if NPO, unless specifically told to do so., Routine Given 09/15/2017 12:07 AM EST 9 Units Given 09/14/2017 8:33 PM EST 6 Units isosorbide mononitrate (IMDUR) CR tablet 120 Given 8:24 AM EST 120 mg mg 120 mg, Oral, DAILY, First dose on Thu09/11/17 at 0900, Until Discontinued, DO NOT CRUSH OR OPEN, Routine Given 09/14/2017 8:10 AM EST 120 mg Given 09/13/2017 8:26 AM EST 120 mg losartan (COZAAR) tablet 50 mg Given 09/15/2017 8:24 AM EST 50 mg 50 mg, Oral, DAILY, First dose on Thu09/11/17 at 1115, Until Discontinued, Please hold if SBP is <110, Routine Given 09/14/2017 8:08 AM EST 50 mg Given 09/13/2017 8:26 AM EST 50 mg nitroGLYcerin (NITROSTAT) SL tablet 0.4 mg Given 09/11/2017 11:41 PM EST 0.4 mg 0.4 mg, Sublingual, EVERY 5 MIN PRN, Starting on Magaly 09/10/17 at 2102, Until Thu09/15/17 at 1611, Chest pain, May repeat every 5 minutes for a total of three doses. Notify provider if chest pain not relieved with nitroglycerin. Do not administer nitroglycerin if the patinet has received or taken phosphodiesterase (PDE-5) inhibitors such as sildenafil, tadalafil or vardenafil within the last 24 to 72 hours., Routine Given 09/11/2017 11:28 PM EST 0.4 mg oxyCODONE-acetaminophen (PERCOCET) 5-325 mg Given 08/27 1:16 PM EST 1 tablet per tablet 1 tablet 1 tablet, Oral, EVERY 4 HOURS PRN, Starting on Magaly 09/10/17 at 2200, Until Thu09/15/17 at 1611, Pain, Maximum dose of acetaminophen is 4000 mg from all sources in 24 hours., Routine Given 09/15/2017 6:14 AM EST 1 tablet Given 09/14/2017 10:40 PM EST 1 tablet perflutren protein-A microspheres (OPTISON) Given 08/26 11:15 AM EST 2.1 mLs 0.22 mg/mL injection 2.1 mL 2.1 mL, Intravenous, ONCE PRN, 1 dose, Starting on Thu09/11/17 at 1145, Until Thu09/11/17 at 1115, Per Protocol, Routine potassium chloride (K-DUR/KLOR-CON) extended Given 6:30 PM EST 40 mEq release tablet 40 mEq 40 mEq, Oral, ONCE, 1 dose, On 09/13/17 at 1830, Routine potassium chloride (K-DUR/KLOR-CON) extended Given 10:03 AM EST 40 mEq release tablet 40 mEq 40 mEq, Oral, ONCE, 1 dose, On Thu09/15/17 at 0815, Routine sodium chloride 0.9 % flush 5 mL Given 09/14/2017 9:58 PM EST 8 mLs 5 mL, Intravenous, 2 TIMES DAILY, First dose on Thu09/10/17 at 2130, Until Discontinued, Routine Given 09/14/2017 9:00 AM EST 5 mLs Given 09/13/2017 8:17 PM EST 5 mLs sodium chloride 0.9 % flush 5 mL Given 09/15/2017 8:30 AM EST 5 mLs 5 mL, Intravenous, EVERY 12 HOURS, First dose on Thu09/10/17 at 2130, Until Discontinued, Routine Given 09/14/2017 9:58 PM EST 8 mLs Given 09/14/2017 9:30 AM EST 5 mLs sodium chloride 0.9% infusion New Bag 09/14/2017 6:13 AM EST 50 mL/hr 50 mL/hr 50 mL/hr, Intravenous, CONTINUOUS, Starting on Thu09/14/17 at 0600, Until Thu09/14/17 at 1901, Cath (Day of Procedure) sodium chloride 0.9% infusion New Bag 09/14/2017 5:40 PM EST 100 mL/hr 100 mL/hr 100 mL/hr, Intravenous, CONTINUOUS, Starting on Thu09/14/17 at 1745, Until Thu09/14/17 at 2144, Recovery (Recovery-Hospital Unit) spironolactone (ALDACTONE) tablet 25 mg Given 09/15/2017 8:24 AM EST 25 mg 25 mg, Oral, DAILY, First dose on Thu09/11/17 at 1115, Until Discontinued, Routine Given 09/14/2017 8:08 AM EST 25 mg Given 09/13/2017 8:26 AM EST 25 mg terazosin (HYTRIN) capsule 4 mg Given 09/14/2017 8:33 PM EST 4 mg 4 mg, Oral, NIGHTLY, First dose on Thu09/10/17 at 2300, Until Discontinued, Routine Given 09/13/2017 8:14 PM EST 4 mg Given 09/12/2017 8:14 PM EST 4 mg tiotropium (SPIRIVA) inhalation capsule with Given 10:03 AM EST 18 mcg device 18 mcg 18 mcg, Inhalation, DAILY, First dose on Thu09/11/17 at 0900, Until Discontinued Given 09/14/2017 8:18 AM EST 18 mcg Given 09/13/2017 8:27 AM EST 18 mcg torsemide (DEMADEX) tablet 40 mg Given 09/15/2017 8:24 AM EST 40 mg 40 mg, Oral, 2 TIMES DAILY, First dose (after last modification) on 09/14/17 at 1700, Until Discontinued, Hold if SBP <90, Routine torsemide (DEMADEX) tablet 60 mg Given 09/13/2017 5:24 PM EST 60 mg 60 mg, Oral, 2 TIMES DAILY, First dose on 09/13/17 at 1215, Until Discontinued, Hold if SBP <90, Routine Given 09/13/2017 12:31 PM EST 60 mg traZODone (DESYREL) tablet 100 mg Given 09/14/2017 10:40 PM EST 100 mg 100 mg, Oral, NIGHTLY PRN, Starting on Magaly 09/10/17 at 2200, Until Thu09/15/17 at 1611, Sleep, Routine Given 09/13/2017 9:59 PM EST 100 mg Given 09/12/2017 11:11 PM EST 100 mg documented in this encounter Active and Recently Administered Medications Times are shown in EST. Scheduled Medication Order 09/13/2017 09/14/2017 09/15/2017 allopurinol (ZYLOPRIM) tablet 100 mg 0825 (Given - Provider: Loreto Bunch RN) 0810 (Given - Provider: Zachery Gaspar, LILIANE)1546 (DEC Hold - Provider: Admin Adt - Reason: Transfer to a Procedural area)190 (DEC Unhold - Provider: Admin Adt) 0823 (Given - Provider: Mary Ruffin) 100 mg, Oral, DAILY, First dose on Thu11/11/16 at 0900, Until Discontinued, Routine aspirin EC tablet 81 mg 0826 (Given - Provider: Loreto draper RN) 0809 (Given - Provider: Zachery Gaspar, LILIANE)1546 (DEC Hold - Provider: Admin Adt - Reason: Transfer to a Procedural area)190 (DEC Unhold - Provider: Admin Adt) 0828 (Given - Provider: Alexandra Shearer RN) 81 mg, Oral, DAILY, First dose on Thu at 0900, Until Discontinued, Routine atorvastatin (LIPITOR) tablet 80 mg 1724 (Given - Provider: Loreto Bunch, RN) 154 ([facility] Hold - Provider: Admin Adt - Reason: Transfer to a Procedural area)170 (Automatically Held - Provider: Admin Adt)190 ([facility] Unhold - Provider: Admin Adt) 80 mg, Oral, EVERY EVENING, First dose o n Thu09/11/17 at 1700, Until Discontinued, Routine budesonide-formoterol (SYMBICORT) 160-4.5 mcg/actuatio n inhaler 2 Inhalation 0828 (Given - Provider: Loreto Bunch, RN)2012 (Given - Provider: Cherry Nguyễn RN) 0817 (Given - Provider: Zachery Gaspar , LILIANE)154 ([facility] Hold - Provider: Admin Adt - Reason: Transfer to a Procedural area)1900 ([facility] Unhold - Provider: Admin Adt)2032 (Given - Provider: Charisse Rodriguez, LILIANE) 08 (Given - Provider: Alexandra Shearer RN) 2 Inhalation, Inhalation, 2 TIMES DAILY, First dose on Thu09/10/17 at 2300, Until Discontinued, Routine buPROPion (WELLBUTRIN SR) SR tablet 100 mg 0830 (Given - Provider: Loreto Bunch RN) 0805 (Given - Provider: Zachery Gaspar , LILIANE)154 ([facility] Hold - Provider: Admin Adt - Reason: Transfer to a Procedural area)1900 (MAR Unhold - Provider: Admin Adt) 0824 (Given - Provider: Mary Ruffin) 100 mg, Oral, EVERY MORNING, First dose on Thu09/11/17 at 0900, Until Discontinued, DO NOT CRUSH OR OPEN, Routine carvedilol (COREG) tablet 6.25 mg 0826 (Given - Provid er: Loreto Bunch RN)1724 (Given - Provider: Loreto Bunch RN) 0810 (Given - Provider: Zachery Gaspar RN)154 ([facility] Hold - Provider: Admin Adt - Reason: Transfer to a Procedural area)1700 (Automatically Held - Provider: Admin Adt)190 ([facility] Unhold - Provider: Admin Adt) 0823 (Given - Provider: Mary Ruffin) 6.25 mg, Oral, 2 TIMES DAILY WITH MEALS, First dose on Thu09/11/17 at 0800, Until Discontinued, Routine clopidogrel (PLAVIX) tablet 75 mg 0826 (Given - Provider: Kayden Bunch RN) 1002 (Given - Provider: Zachery Gaspar, LILIANE)154 ([facility] Hold - Provider: Admin Adt - Reason: Transfer to a Procedural area)1900 ([facility] Unhold - Provider: Admin Adt) 0823 (Given - Provider: Mary Ruffin) 75 mg, Oral, DAILY, First dose on Thu at 0900, Until Discontinued, Routine docusate sodium (COLACE) capsule 100 mg 08 (Given - Provider: Loreto Bunch RN)2012 (Given - Provider: Cherry Nguyễn RN) 08 (Given - Provider: Zachery Gaspar, LILIANE)154 ([facility] Hold - Provider: Admin Adt - Reason: Transfer to a Procedural area)1900 ([facility] Unhold - Provider: Admin Adt)2032 (Given - Provider: Charisse Rodriguez RN) 0900 (Not Given - Provider: Alexandra lopez RN - Reason: Patient/family refused) 100 mg, Oral, 2 TIMES DAILY, First dose on Thu09/11/17 at 1115, Until Discontinued, Routine DULoxetine (CYMBALTA) capsule 60 mg 0831 (Given - Prov ider: Loreto Bunch RN)2012 (Given - Provider: Cherry Nguyễn RN) 0804 (Given - Provider: Zachery Gaspar, LILIANE)154 ([facility] Hold - Provider: Admin Adt - Reason: Transfer to a Procedural area)1900 ([facility] Unhold - Provider: Admin Adt)2032 (Given - Provider: Charisse Rodriguez RN) 0823 (Given - Provider: Mary Ruffin) 60 mg, Oral, 2 TIMES DAILY, First dose o n Magaly 09/10/17 at 2300, Until Discontinued, Routine felodipine (PLENDIL) tablet 5 mg 0829 (Given - Provider: Christina Bunch RN) 0805 (Given - Provider: Zachery Gaspar, LILIANE)154 ([facility] Hold - Provider: Admin Adt - Reason: Transfer to a Procedural area)1900 ([facility] Unhold - Provider: Admin Adt) 0823 (Given - Provider: Alexandra Shearer RN) 5 mg, Oral, EVERY MORNING, First dose on Thu09/11/17 at 0900, Until Discontinued insulin glargine VIAL injection 30 Units 0829 (Given - Provider: Loreto Bnuch RN) 0802 (Given - Provider: Zachery Gaspar RN)1546 (DEC Hold - Provider: Admin Adt - Reason: Transfer to a Procedural area)1901 (MAR Unhold - Provider: Admin Adt) 0822 (Given - Provider: Alexandra Shearer R N) 30 Units, Subcutaneous, EVERY MORNING, F irst dose on Thu09/11/17 at 0700, Until Discontinued, Routine insulin lispro (humaLOG) VIAL injection 3-12 Units(Darlene danielsd Group 1) 0000 (Not Given - Provider: Cherry Nguyễn RN - Reason: Order parameters not met)0400 (Not Given - Provider: Cherry Nguyễn RN - Reason: Order parameters not met) 0000 (Not Given - Provider: Cherry johnson RN - Reason: Order parameters not met)0400 (Not Given - Provider: Cherry Nguyễn RN - Reason: Order parameters not met)0803 (Given - Provider: Zachery Gaspar RN) 0007 (Given - Provider: Melody connelly RN)0400 (Not Given - Provider: Melody Salamanca RN - Reason: Order parameters not met)0800 (Not Given - Provider: Alexandra Shearer RN - Reason: Order parameters not met) 3-12 Units, Subcutaneous, EVERY 4 HOURS SCHEDULED, First dose on Thu09/11/17 at 0000, Until Discontinued, CORRECTION BOLUS Resistant to insulin obese patient or TDD (total daily dose of all insulin 0800 (Not Given - Provider: Loreto Bunch RN - Reason: See comment - Comment: [phone] (Given - Provider: Loreto Bunch RN)1600 (Not Given - Provider: Loreto Bunch RN - Reason: See comment - Comment: BG130) 1200 (Not Given - Provider: Zachery gonzalez RN - Reason: NPO)1546 (MAR Hold - Provider: Admin Adt - Reason: Transfer to a Procedural area)1600 (Automatically Held - Provider: Admin Adt)1901 (MAR Unhold - Provider: Admin Adt) 1220 (Given - Provider: Mary Ruffin) needed to achieve glycemic control) gre ater than 60 units BG 140 - 160 Give 3 units BG 161 - 200 Give 6 units BG 201 - 240 Give 9 units BG greater than 240, give 12 units and recheck BG in 2 hours. If 2013 (Given - Provider: Cherry Nguyễn RN) 2032 (Given - Provider: Charisse Rodriguez RN) less than 240 after two hours, give no i nsulin and resume prior schedule. If BG remains greater than 240, repeat 12 units (no more than three times) & call for new basal insulin orders. DO NOT hold if NPO, unless specifically told to do so., Routine isosorbide mononitrate (IMDUR) CR tablet 120 mg 0826 ( Given - Provider: Loreto Bunch RN) 0810 (Given - Provider: Zachery Gaspar , LILIANE)1546 (MAR Hold - Provider: Admin Adt - Reason: Transfer to a Procedural area)190 (MAR Unhold - Provider: Admin Adt) 0824 (Given - Provider: Mary Ruffin) 120 mg, Oral, DAILY, First dose on Thu11/11/16 at 0900, Until Discontinued, DO NOT CRUSH OR OPEN, Routine losartan (COZAAR) tablet 50 mg 0826 (Given - Provider: Li Bunch RN) 0808 (Given - Provider: Zachery Gaspar, LILIANE)1546 (MAR Hold - Provider: Admin Adt - Reason: Transfer to a Procedural area)190 (MAR Unhold - Provider: Admin Adt) 0824 (Given - Provider: Alexandra Shearer RN) 50 mg, Oral, DAILY, First dose on Thu at 1115, Until Discontinued, Please hold if SBP is <110, Routine potassium chloride (K-DUR/KLOR-CON) extended release t ablet 40 mEq (COMPLETED) 1829 (Given - Provider: Loreto Bunch RN) 40 mEq, Oral, ONCE, 1 dose, 09/13/17 at 1830, Routine potassium chloride (K-DUR/KLOR-CON) extended release tablet 40 mEq (COMPLETED) 1003 (Given - Provider: Mary Ruffin) 40 mEq, Oral, ONCE, 1 dose, Thu09/15/17 at 0815, Routine sodium chloride 0.9 % flush 5 mL 0831 (Given - Provide r: Loreto Bunch RN)2016 (Given - Provider: Cherry Nguyễn RN) 0900 (Given - Provider: Zachery Gaspar, LILIANE)154 ([facility] Hold - Provider: Admin Adt - Reason: Transfer to a Procedural area)1900 ([facility] Unhold - Provider: Admin Adt)2157 (Given - Provider: Melody Salamanca, LILIANE) 0900 (Not Given - Provider: Alexandra lopez RN - Reason: Order parameters not met) 5 mL, Intravenous, 2 TIMES DAILY, First dose on Thu09/10/17 at 2130, Until Discontinued, Routine sodium chloride 0.9 % flush 5 mL 1159 (Given - Provide r: Loreto Bunch RN)2129 (Not Given - Provider: Cherry Nguyễn RN - Reason: See comment - Comment: infusing) 0930 (Given - Provider: Zachery Gaspar , LILIANE)154 ([facility] Hold - Provider: Admin Adt - Reason: Transfer to a Procedural area)1900 ([facility] Unhold - Provider: Admin Adt)2157 (Given - Provider: Melody Salamanca RN) 0830 (Given - Provider: Alexandra Shearer RN) 5 mL, Intravenous, EVERY 12 HOURS, First dose on Thu09/10/17 at 2130, Until Discontinued, Routine spironolactone (ALDACTONE) tablet 25 mg 08 (Given - Provider: Loreto Bunch RN) 0808 (Given - Provider: Zachery Gaspar , LILIANE)154 ([facility] Hold - Provider: Admin Adt - Reason: Transfer to a Procedural area)1900 ([facility] Unhold - Provider: Admin Adt) 0824 (Given - Provider: Mary Ruffin) 25 mg, Oral, DAILY, First dose on Thu at 1115, Until Discontinued, Routine terazosin (HYTRIN) capsule 4 mg 2013 (Given - Provider : Cherry Nguyễn RN) 1546 ([facility] Hold - Provider: Admin Adt - R cal: Transfer to a Procedural area)190 ([facility] Unhold - Provider: Admin Adt)203 (Given - Provider: Charisse Rodriguez RN) 4 mg, Oral, NIGHTLY, First dose on Magaly 1 11/10/16 at 2300, Until Discontinued, Routine tiotropium (SPIRIVA) inhalation capsule with device 18 mcg 0827 (Given - Provider: Loreto Bunch RN) 0818 (Given - Provider: Zachery Gaspar RN)1546 ([facility] Hold - Provider: Admin Adt - Reason: Transfer to a Procedural area)190 ([facility] Unhold - Provider: Admin Adt) 1003 (Given - Provider: Mary Ruffin) 18 mcg, Inhalation, DAILY, First dose on Thu09/11/17 at 0900, Until Discontinued, Routine torsemide (DEMADEX) tablet 40 mg 1546 ([facility] Hold - Provider: Admin Adt - Reason: Transfer to a Procedural area)1700 (Automatically Held - Provider: Admin Adt)190 ([facility] Unhold - Provider: Admin Adt) 0824 (Given - Provider: Alexandra Shearer RN) 40 mg, Oral, 2 TIMES DAILY, First dose o n 09/14/17 at 1700, Until Discontinued, Hold if SBP <90, Routine torsemide (DEMADEX) tablet 60 mg (CANCELED) 1231 (Give n - Provider: Loreto Bunch RN)1724 (Given - Provider: Loreto Bunch RN) 0809 (Not Given - Provider: Zachery Gaspar RN - Reason: See comment - Comment: being held) 60 mg, Oral, 2 TIMES DAILY, First dose o n 09/13/17 at 1215, Until Discontinued, Hold if SBP <90, Routine Continuous Medication Order 09/13/2017 09/14/2017 09/15/2017 heparin 25,000 units in dextrose 5% 500 mL infusion (C ANCELED) 0645 (New Bag - Provider: Cherry Nguyễn RN)0859 (Rate/Dose Change - Provider: Loreto Bunch RN)1609 (Rate/Dose Change - Provider: Loreto Bunch RN)2112 (New Bag - Provider: Cherry L Slavetskas, RN) 1005 (New Bag - Provider: Zachery caldwell RN)1546 (DEC Hold - Provider: Admin Adt - Reason: Transfer to a Procedural area)1901 (DEC Unhold - Provider: Admin Adt) 0-5,000 Units/hr (0-100 mL/hr), Intraven ous, at 0-100 mL/hr, CONTINUOUS, Starting 09/12/17 at 1115, Until 09/14/17 at 2109, BEGIN infusion at 1,000 units per hr (12 units/kg/hr). MAX INITIAL inf usion rate is 1,000 units/hr. Target PTT = 80 - 114 seconds Start adjustment schedule 6 hours after starting infusion. If PTT is: - less than 60 seconds, Administer PRN bolus and increase rate by 450 un its per hr (4 units/kg/hr) - 60 - 79 sec onds, Administer PRN bolus and increase rate by 250 units per hr (2 units/kg/hr) - 80 - 114 seconds, No Change - 115 - 129 seconds, decrease rate by 100 units per hr (1 units/kg/hr) - 130 - 145 seconds, stop infusion for 30 minutes, then decrease rate by 250 units per hr (2 units/kg/hr) - Greater than 145 seconds, stop infusion for 60 minutes, then decrease rate by 350 units per hour (3 units/kg/hr) R epeat aPTT 6 hours after initiating heparin. Then 6 hours after each dose adjustment. When 2 consecutive aPTT within target range of 80 - 114 seconds, change aPTT to once every 24 hours with A.M. lazaro lamb on heparin. RN to order required aPTT - Per Protocol, Routine sodium chloride 0.9% infusion (CANCELED) 06 (New Bag - Provider: Cherry Nguyễn RN) 50 mL/hr, at 50 mL/hr, Intravenous, CONT INUOUS, Starting 09/14/17 at 0600, Until Thu09/14/17 at 1901, Cath (Day of Procedure) sodium chloride 0.9% infusion () 1740 (New Bag - Provider: Janet Mathis RN)210 (Stopped - Provider: Joshua Mohamud RN) 100 mL/hr, at 100 mL/hr, Intravenous, CO NTINUOUS, Starting 09/14/17 at 1745, Until Thu09/14/17 at 2144, Recovery (Recovery-Hospital Unit) PRN Medication Order 09/13/2017 09/14/2017 09/15/2017 dextrose 50% IV syringe 25-50 mL(Linked Group 2) 1546 (DEC Hold - Provider: Admin Adt - Reason: Transfer to a Procedural area)190 (DEC Unhold - Provider: Admin Adt) 25-50 mL (12.5-25 g), Intravenous, EVERY 1 HOUR PRN, Starting Magaly 09/10/17 at 2200, Until Thu09/15/17 at 1611, Low blood sugar, For BG 50-70: 120 mL Juice or Regular (not diet) soda OR 12.5 gram (25 mL) Dextrose 50% IV OR, if no IV access, 1 mg Glucagon IM. Recheck BG in 30 minutes. May repeat juice, dextrose or glucagon once per episode For BG less than 50: 240 mL Juice or Regular (not diet) s kali OR 25 grams (50 mL) Dextrose 50% IV OR, if no IV access, 1 mg Glucagon IM. Recheck BG in 30 minutes. May repeat juice, dextrose, or glucagon once per episode. To avoid extravasation, push Dextro se 50% SLOWLY (3 mL over 1 minute) in a patent, running IV, preferably a central line. For persistent hypoglycemia, consider longer-acting treatment for the duration of the active insulin., Routine fentaNYL 50 mcg/mL multi-dose injection (CANCELED) 1558 (Given - Provider: Gurinder Mathis, LILIANE)1605 (Given - Provider: Gurinder Mathis RN) ONCE PRN, Starting Thu09/14/17 at 1558, Until Thu09/14/17 at 1832, Intra- Operative (Intra-Procedure), Routine glucagon (human recombinant) injection SolR 1 mg(Linked Grou p 2) 1546 (DEC Hold - Provider: Admin Adt - Reason: Transfer to a Procedural area)190 ([employer] [facility] [employer] [facility] Unhold - Provider: Admin Adt) 1 mg, Intramuscular, EVERY 1 HOUR PRN, S tarting Magaly 09/10/17 at 2200, Until Thu09/15/17 at 1611, Low blood sugar, For BG 50-70: 120 mL Juice or Regular (not diet) soda OR 12.5 gram (25 mL) Dextrose 5 0% IV OR, if no IV access, 1 mg Glucagon IM. Recheck BG in 30 minutes. May repeat juice, dextrose or glucagon once per episode For BG less than 50: 240 mL Juice or Regular (not diet) soda OR 25 gram s (50 mL) Dextrose 50% IV OR, if no IV a ccess, 1 mg Glucagon IM. Recheck BG in 30 minutes. May repeat juice, dextrose, or glucagon once per episode. To avoid extravasation, push Dextrose 50% SLOWLY (3 mL over 1 minute) in a patent, runnin g IV, preferably a central line. For persistent hypoglycemia, consider longer-acting treatment for the duration of the active insulin., Routine heparin (porcine) injection 0-4,000 Units (CANCELED) 0 858 (Given - Provider: Loreto Bunhc, LILIANE)1605 (Given - Provider: Loreto Bunch RN) 1546 ([employer] [facility] Hold - Provider: Admin Adt - Reason: Transfer to a Procedural area)1900 ([employer] [facility] Unhold - Provider: Admin Adt) 0-4,000 Units, Intravenous, BOLUS PER HE LANDEN PROTOCOL, Starting 09/12/17 at 1044, Until 09/14/17 at 2109, Per Protocol, START ADJUSTMENT SCHEDULE 6 HOURS AFTER STARTING INFUSION aPTT Betwee n 60 - 79 seconds: Bolus 2,000 units aPT T Less than 60 seconds: Bolus 4,000 units Increase infusion and recheck aPTT in 6 hours. , Routine heparin (porcine) injection (CANCELED) 1 642 (Given - Provider: Gurinder Mathis RN) ONCE PRN, Starting 09/14/17 at 1642, Until Thu09/14/17 at 1832, Cath (Intra-Procedure), Routine ipratropium-albuterol (DUONEB) 0.5 mg-3 mg(2.5 mg base)/3 mL nebulizer solution 3 mL 1546 ([employer] [facility] Hold - Provider: A dmin Adt - Reason: Transfer to a Procedural area)1900 ([employer] [facility] Unhold - Provider: Admin Adt) 3 mL, Nebulization, 4 TIMES DAILY PRN, S tarting Magaly 09/10/17 at 2200, Until Thu09/15/17 at 1611, Wheezing, shortness of breath, Routine lidocaine (XYLOCAINE) 10 mg/mL (1 %) injection 3 mg 1546 ([facility] Hold - Provider: Admin Adt - Reason: Transfer to a Procedural area)190 ([facility] Unhold - Provider: Admin Adt) 3 mg (0.3 mL), Subcutaneous, ONCE PRN, 1 dose, Starting Magaly 09/10/17 at 2102, Until Thu09/15/17 at 1611, for discomfort with PIV insertion, Routine midazolam (PF) (VERSED) 1 mg/mL multi-dose injection (CANCEL ED) 155 (Given - Provider: Gurinder Mathis, RN) ONCE PRN, Starting Thu09/14/17 at 1558, Until Thu09/14/17 at 1832, Cath (Intra-Procedure), Routine niCARdipine (CARDENE) in sodium chloride 0.9% injection (CAN CELED) 1650 (Given - Provider: Anupama Koch MD)165 (Given - Provider: Anupama Koch MD) ONCE PRN, Starting Thu09/14/17 at 1650, Until Thu09/14/17 at 1832, Intra- Operative (Intra-Procedure), Routine nitroGLYcerin (NITROSTAT) SL tablet 0.4 mg 154 ([facility] Hold - Provider: Admin Adt - Reason: Transfer to a Procedural area)190 ([facility] Unhold - Provider: Admin Adt) 0.4 mg, Sublingual, EVERY 5 MIN PRN, Sta rting Magaly 09/10/17 at 2102, Until Thu09/15/17 at 1611, Chest pain, May repeat every 5 minutes for a total of three doses. Notify provider if chest pain not relie sergey with nitroglycerin. Do not administe r nitroglycerin if the patinet has received or taken phosphodiesterase (PDE-5) inhibitors such as sildenafil, tadalafil or vardenafil within the last 24 to 72 hours., Routine oxyCODONE-acetaminophen (PERCOCET) 5-325 mg per tablet 1 tablet 921 (Given - Provider: Loreto Bunch RN)2101 (Given - Provider: Cherry Nguyễn RN) 09 (Given - Provider: Zachery Gaspar RN)152 (Given - Provider: Zachery Gaspar RN)1546 ([employer] [facility] Hold - Provider: Admin Adt - Reason: Transfer to a Procedural area)1900 ([employer] [facility] Unhold - Provider: Admin Adt) 0614 (Given - Provider: Melody Salamanca, LILIANE)1316 (Given - Provider: Alexandra Shearer RN) 1 tablet, Oral, EVERY 4 HOURS PRN, Start ing Magaly 09/10/17 at 2200, Until Tu09/15/17 at 1611, Pain, Maximum dose of acetaminophen is 4000 mg from all sources in 24 hours., Routine 2239 (Given - Provider: Yony Salamanca, LILIANE) sodium chloride 0.9 % flush 5-20 mL 154 ([employer] [facility] Hold - Provider: Admin Adt - Reason: Transfer to a Procedural area)1900 ([employer] [facility] Unhold - Provider: Admin Adt) 5-20 mL, Intravenous, EVERY 1 MIN PRN, S tarting Magaly 09/10/17 at 2102, Until 09/15/17 at 1611, flush, Flush pertains to all indwelling lines. Flush per protocol found in the job aid using the link provided on this medication record., Routine sodium chloride 0.9 % flush 5-20 mL 154 ([employer] [facility] Hold - Provider: Admin Adt - Reason: Transfer to a Procedural area)1900 ([employer] [facility] Unhold - Provider: Admin Adt) 5-20 mL, Intravenous, EVERY 1 MIN PRN, S tarting Magaly 09/10/17 at 2102, Until 09/15/17 at 1611, flush, Flush pertains to all indwelling lines. Flush per protocol found in the job aid using the link provided on this medication record., Routine traZODone (DESYREL) tablet 100 mg 2158 (Given - Provid er: Cherry Nguyễn RN) 154 ([employer] [facility] Hold - Provider: Admin Adt - R cal: Transfer to a Procedural area)1900 ([employer] [facility] Unhold - Provider: Admin Adt)2240 (Given - Provider: Melody Salamanca RN) 100 mg, Oral, NIGHTLY PRN, Starting Magaly 09/10/17 at 2200, Until 09/15/17 at 1611, Sleep, Routine Linked Groups Order Group 1: POCT Fingerstick Glucose (CANCELED) Routine, EVERY 4 HOURS, First occurrence on Thu09/11/17 at 0000, Until Specified
Consider choosing EVERY 4 HOURS as frequency for: - Type 1 Diabetes - At least 24 hours after coming off an ins ulin drip - At least 24 hours after admi ssion for DKA - Hypoglycemia unawareness - Patients who are otherwise unstable Select the same frequency for the correction bolus insulin order And insulin lispro (humaLOG) VIAL injection 3-12 UnitsJump to med 3-12 Units, Subcutaneous, EVERY 4 HOURS SCHEDULED, First dose on Thu09/11/17 at 0000, Until Discontinued
CORRECTION BOLUS Resistant to insulin obese patient or TDD (tota l daily dose of all insulin needed to ac hieve glycemic control) greater than 60 units BG 140 - 160 Give 3 units BG 161 - 200 Give 6 units BG 201 - 240 Give 9 u nits BG greater than 24 0, give 12 units and recheck BG in 2 hours. If less than 240 after two hours, give no insulin and resume prior schedule. If BG remains greater than 24 0, repeat 12 units (no more than three t imes) & call for new basal insulin orders. DO NOT hold if NPO, unless specifically told to do so.
Routine Group 2: dextrose 50% IV syringe 25-50 mLJump to med 25-50 mL (12.5-25 g), Intravenous, EVERY 1 HOUR PRN, Starting Magaly 09/10/17 at 2200, Until Thu09/15/17 at 1611, Low blood sugar
For BG 50- 70: 120 mL Juice or Regular (not d iet) soda OR 12.5 gram (25 mL) Dextrose 50% IV OR, if no IV access, 1 mg Glucagon IM. Recheck BG in 30 minutes. May repeat juice, dextrose or glucagon once per ep isode For BG less than 50: 240 mL Juice or Regular (not diet) soda OR 25 grams (50 mL) Dextrose 50% IV OR, if no IV access, 1 mg Glucagon IM. Recheck BG in 30 minutes. &am p;nbsp;May repeat juice, dextrose, or gl ucagon once per episode. To avoid extravasation, push Dextrose 50% SLOWLY (3 mL over 1 minute) in a patent, running IV, preferably a central line.& nbsp;For persistent hypoglycemia, cons ider longer-acting treatment for the duration of the active insulin.
Routine Or glucagon (human recombinant) injection SolR 1 mgJump to med 1 mg, Intramuscular, EVERY 1 HOUR PRN, S tarting Magaly 09/10/17 at 2200, Until Tu09/15/17 at 1611, Low blood sugar
For BG 50-70: 120 mL Juice or Regular (not diet) soda OR 1 2.5 gram (25 mL) Dextrose 50% IV OR, if no IV access, 1 mg Glucagon IM. Recheck BG in 30 minutes. May repeat juice, dextrose or glucagon once per episode&nbsp ;For BG less than 50: 240 mL Juice or Regular (not diet) soda OR 25 grams (50 mL) Dextrose 50% IV OR, if no IV access, 1 mg Glucagon IM. Recheck BG in 30 minutes. May rep eat juice, dextrose, or glucagon once pe r episode. To avoid extravasation, push Dextrose 50% SLOWLY (3 mL over 1 minute) in a patent, running IV, preferably a central line. For per sistent hypoglycemia, consider longer-ac ting treatment for the duration of the active insulin.
Routine documented in this encounter Care Teams Staff Technologist Relationship Specialty Start Date End Date Edil Schmidt, MESFIN PCP - General 05/06/12 EMERGENCY DEPT [address] [place] [address] [place] [address] documented as of this encounter
--- OUTSIDE RECORDS SUMMARY | 2022-06-15 00:22 | XMS_ITS | Encounter Summary ---
:1945 Author Organization [facility] [place] [address] Care Team Providers Name Role Phone Edil Schmidt APRN Primary Care Provider Reason for Visit Reason Onset Date Comments Other 11/15/2014 Encounter Details Date Type Department Care Team Description 11/15/2014 Telephone Sleep Center at [facility] Amanda Mares MD Other [address] [facility] [place] [address] [facility] [phone] [place] [id number] (Wo rk) Social History Tobacco Use Types Packs/Day Years Used Date Former Smoker Quit: 10/26/18 92 Alcohol Use Standard Drinks/Week Comments No 0 (1 standard drink = 0.6 oz pure alcoho l) Sex Assigned at Date Recorded Not on file documented as of this encounter Miscellaneous Notes Telephone Encounter - Sonia Gonzales - 12/01/2014 7:40 AM EST . documented in this encounter Plan of Treatment Not on filedocumented as of this encounter Visit Diagnoses Not on filedocumented in this encounter Care Teams Light Technician Relationship Specialty Start Date End Date Edil Schmidt APRN PCP - General 05/06/12 EMERGENCY DEPT [address] [place] [address] [place] [address] (work) documented as of this encounter
--- OUTSIDE RECORDS SUMMARY | 2022-06-15 00:22 | XMS_ITS | Encounter Summary ---
:1945 Author Organization [facility] [place] [address] Care Team Providers Name Role Phone Edil Schmidt APRN Primary Care Provider Encounter Details Date Type Department Care Team Description 09/07/2017 Telephone Cardiology Shawnee Barone MD [facility] [place] [address] CRITICAL CARE MEDICINE [phone] [place], [place] [address] (Wo rk) Social History Tobacco Use Types Packs/Day Years Used Date Former Smoker Quit: 10/26/18 92 Alcohol Use Standard Drinks/Week Comments No 0 (1 standard drink = 0.6 oz pure alcoho l) Sex Assigned at Date Recorded Not on file documented as of this encounter Miscellaneous Notes Telephone Encounter - Shawnee Barone MD - 09/07/2017 4:08 PM EST Telephone Triage Note Initial Contact Date: 09/07/17 Initial contact time: 1500 Referring Provider: Dr. Segovia Patient Location: [facility] Emergency Department Presenting Symptoms per OSH: Mr. Jiménez is a 72yo male with a known history of ASCVD, chronic heart failure, COPD and diabetes mellitus who presents to the [facility] ED with 2 days of progressive shortness of breath in the context ofmissing doses of his diuretics on Thursday. He is volume overloaded per exam and initial evaluation isnotable for hemodynamic stability but a new oxygen requirement of 2L with an elevated pro- BNP of >35,000. We are contacted because his troponin I of 0.12 falls within there intermediate range (ULN0.06). She does not feel that he is having ACS. Past Medical History: ASCVD with prior PCI, brachytherapy and ultimately CABG in 2007 Chronic heart failure COPD DMII Pertinent Diagnostic Findings: Vitals: BP 115/73 HR 96 SaO2 94% on 2LNC EKG : No evident ischemic changes Troponin 0.12 (ULN 0.06) Plan: They will admit there for management of ADHF in the setting of diuretic noncompliance. They will nottreat for acute plaque rupture but will trend troponin, mild elevation currently likely reflective of leak in the setting of ADHF. If they have difficulty with management or he develops chest pain, isch emic EKG changes or concerning troponin trend. documented in this encounter Plan of Treatment Not on filedocumented as of this encounter Visit Diagnoses Not on filedocumented in this encounter Care Teams Extrusion Former Relationship Specialty Start Date End Date Edil Schmidt APRN PCP - General 05/06/12 EMERGENCY DEPT [address] [place] [address] [place] [address] documented as of this encounter
--- OUTSIDE RECORDS SUMMARY | 2022-06-15 00:22 | XMS_ITS | Encounter Summary ---
:1945 [place] [address] Care Team Providers Name Role Phone Edli Schmidt APRN Primary Care Provider Encounter Details Date Type Department Care Team Description 11/15/2014 Orders Only Sleep Center at [facility] Kourtney Mares MD [facility] [address] [facility] [place] [address] [place] [address] [phone] (Wo rk) Social History Tobacco Use Types Packs/Day Years Used Date Former Smoker Quit: 10/26/18 92 Alcohol Use Standard Drinks/Week Comments No 0 (1 standard drink = 0.6 oz pure alcoho l) Sex Assigned at Date Recorded Not on file documented as of this encounter Progress Notes Amanda Mares MD - 11/15/2014 5:27 PM EST Polysomnogram Order Form Room # Technologist Assignment: To be read by on PSG Patient Information Date of study: : 1945 Name: Napoleon Jiménez Height: 72 Weight: 265 lbs 69 y.o. male Normal sleep hours: not sure Arrival Time: Physical/Mobility Limitations: Yes, unsteady Cognitive Limitations: No Requires Male Tech: No Requires Female Tech: No Requires 1:1 Care: No Requires Parent/Caregiver: No Using Home Oxygen: Ordered 3 LPM at night, 2 LPM during day (but doesn't use during the day.) At home sleeps in: Bed, not sure - have hospital bed available. PSG Indications: Sleep testing at outside institution demonstrated severe SDB, AHI 80/hr with O2 desaturations to 78%. Notes suggest primarily central (380 central apneas, 20 OA, 70 hypopneas, 11 mixed). Other Medical Conditions: On high dose narcotic medications, h/o COPD, and has pulmonary HTN, CAD s/p stents. Mobility issues (?neuropathy). DM. Afib. Obesity. PSG Orders Type of study: ASV Study Start with the following settings: min EPAP 6, max EPAP 15, min PS 0, max PS 15, max pressure 25 Focus on mask fit first. Make no ASV settings changes (unless for comfort) for the first 2 hours. Please follow the protocol and limit frequent settings changes thereafter. If raising the EPAP min is required to 10 or above, then increase EPAP max to 20. Additional data required: TCO2 if available Special instructions: 1. RBD montage 2. Start off O2. If O2 saturation is < 89% x 5-10 min, please start supplemental oxygen at 1 LPMand titrate to keep at 90% or above. *Initiate CPAP/BPAP/oxygen per previously determined protocols unless otherwise specified. documented in this encounter Plan of Treatment Not on filedocumented as of this encounter Visit Diagnoses Not on filedocumented in this encounter Care Teams Senior Cisco Network Engineer Relationship Specialty Start Date End Date Edil Schmidt APRN PCP - General 05/06/12 EMERGENCY DEPT [address] [place] [address] [place] [address] documented as of this encounter
--- OUTSIDE RECORDS SUMMARY | 2022-06-15 00:22 | XMS_ITS | Encounter Summary ---
:1945 Author Organization [facility] [place] [address] Care Team Providers Name Role Phone Nancy Moore MD Primary Care Provider [phone] Encounter Details Date Type Department Care Team Description 05/03/2012 - Hospital Intermediate Cardiac Rinku Johnson MD [facility] [place] [address] Chest pain; 05/05/2012 Encounter Care Unit Delfino Ortega MD [facility] [place] [address] ASCVD (arteriosclerotic cardiovascular d isease); [facility] Diabetes mellitus with neuropathy; [place] [id number] Social History Tobacco Use Types Packs/Day Years Used Date Former Smoker Quit: 10/26/18 92 Alcohol Use Standard Drinks/Week Comments No 0 (1 standard drink = 0.6 oz pure alcoho l) Sex Assigned at Date Recorded Not on file documented as of this encounter Last Filed Vital Signs Vital Sign Reading Time Taken Comments Blood Pressure 174/73 05/05/2012 7:00 AM EDT Pulse 57 05/05/2012 7:00 AM EDT Temperature 36.8 ??C (98.2 ??F) 05/05/2012 7:00 AM EDT Respiratory Rate 18 05/05/2012 7:00 AM EDT Oxygen Saturation 97% 05/05/2012 7:00 AM EDT Inhaled Oxygen Concentration - - Weight 118.4 kg (261 lb 0.4 oz) 05/05/2012 5:54 AM EDT Height 182.9 cm (6') 05/03/2012 3:00 PM EDT Body Mass Index 35.4 05/03/2012 3:00 PM EDT documented in this encounter Discharge Instructions Discharge InstructionsDanielle Worrell APRN - 05/05/2012 2:17 PM EDT Napoleon Jiménez [id number] 1945 Diabetes Care Discharge Instructions Please start checking your Blood glucose every morning, and for the next week check before meals and1-2 hours after dinner. Please maintain a log of your blood sugars and bring this in to your new primary care provider. You may resume your metformin at your previous dose tonight with supper, and continue to take this as you did before 1,000 mg of metformin by mouth with breakfast and supper. Start glimepiride 2 mg by mouth with breakfast. If not eating then do not take. Instructions for Lantus Insulin (LONG ACTING) 1. Inject LANTUS insulin at 8PM each night. Start at 30 units tonight. 2. Check blood glucose (BG) before breakfast 3. If the blood glucose before breakfast is over 150 for two days in a row, add TWO units of insulinto the next LANTUS dose. This increased dose becomes your new dose, continue to increase as needed. 4. If the blood glucose before breakfast under 90 for two days in a row, subtract TWO units of insulin from the next LANTUS dose. This lower dose becomes your new dose, continue to decrease as needed. 5. If you should forget to take your Lantus, take your usual dose as soon as you realize it was missed. Gradually work back to taking it at 8PM, moving it by 2 - 3 hours each day. Treatment of Low Blood Sugar (Hypoglycemia) If your BG is lower than 80, you are likely to feel shaky, sweaty and lightheaded. This is a signal that your body needs more sugar. Quickly eat or drink a small serving of something sweet, such as: ?? 4 ounces fruit juice or regular (not diet) soda ?? 6 lifesavers ?? 4-8 glucose tablets (~15-30 gm of glucose) ?? If your BG is very low <50, you can double the amount above or take 30 gm of glucose gel/tablets. ?? Sit and rest and you should feel better within a few minutes. Once you are feeling better, try todetermine why your BG was so low. Common causes of hypoglycemia include skipping a meal, lots of exercise, too much insulin or any combination of these things. Understanding the cause my help you to avoid another low BG in the future. Call your doctor for blood sugars under 80 or over 250 twice in one day. Danielle Worrell [facility] Section of Endocrinology Diabetes Management Patient InstructionsWu Ricks APRN - 05/05/2012 2:56 PM EDT Anti-coagulation follow up: n/a Call your doctor if: Chest pain, shortness of breath, pain or swelling in legs occurs. If you have non-emergent questions between now and the time of your follow up appointments: During 8am-5pm Thursday through Thursday call [phone] to speak with a nurse in the cardiology clinic All other times call [phone] and ask to speak to the wet room worker international marketing coordinator. Return to work: No longer works Driving: No driving for 48 hours after catheterization Follow up Appointments: PCP Edil Schmidt APRN May 11, 2012 at 2:00 pm Supervisor Rubber Covering At [facility] at the [facility] May 13, 2012 at 1:00 pm Home oxygen therapy: N/A Arrangements for VNA/home care: none AttachmentsThe following attachments cannot be sent through Care Everywhere. HEART FAILURE: AFTER YOUR VISIT (CHILEAN)documented in this encounter Medications at Time of Discharge Medication Sig Dispensed Refills Start Date End Date traZODone (DESYREL) 50 Take 100 mg by mouth 0 mg tablet nightly as needed. losartan (COZAAR) 100 Take 50 mg by mouth 0 mg tablet daily. FELODIPINE ORAL Take 5 mg by mouth 0 every morning. aspirin 81 mg EC Take 81 mg by mouth 0 tablet daily. atenolol (TENORMIN) 25 Take 0.5 tablets by 30 tablet 0 04/2509/10/2017 mg tablet mouth 2 times daily. glimepiride (AMARYL) 2 Take 1 tablet by mouth 30 tablet 2 0 05/05/2012 09/10/2017 mg tablet daily. rosuvastatin (CRESTOR) Take 1 tablet by mouth 30 tablet 2 0 05/05/2012 09/10/2017 5 mg tablet every evening. nitroGLYcerin Place 1 tablet under 90 tablet 4 05/05/2012 1 11/10/2016 (NITROSTAT) 0.4 mg SL the tongue every 5 tablet minutes as needed for Chest pain. promethazine Take 25 mg by mouth 0 (PHENERGAN) 25 mg every 6 hours as tablet needed. OXYcodone (ROXICODONE) Take 15 mg by mouth 0 09/10/2017 15 mg immediate every 8 hours. release tablet methadone (DOLOPHINE) Take 40 mg by mouth 0 09/10/2017 10 mg tablet every 8 hours. potassium chloride Take 10 mEq by mouth 2 0 09/10/2017 (K-DUR) 10 mEq tablet times daily. omeprazole (PRILOSEC) Take 40 mg by mouth 0 09/10/2017 40 mg capsule every evening. furosemide (LASIX) 80 Take 60 mg by mouth 2 0 09/15/2017 mg tablet times daily. insulin glargine Inject 60 Units 0 (LANTUS) 100 unit/mL subcutaneously every vial injection morning. metFORMIN (GLUCOPHAGE) Take 1,000 mg by mouth 0 09/10/2017 500 mg tablet 2 times daily (with meals). Lutein 6 mg Cap Take 6 mg by mouth 0 1 11/10/2016 daily. cloNIDine (CATAPRES) Take 0.1 mg by mouth 0 09/10/2017 0.1 mg tablet daily. documented as of this encounter Progress Notes Emperatriz Howe RN - 05/05/2012 4:25 PM EDT Reviewed discharge summary and medications with patient who demonstrated understanding. Patient d/c'd from telemetry and IV. Patient ambulated independently with family to [facility] for home. Charly Rojas, RN - 05/05/2012 1:21 PM EDT Spoke with Pt again this afternoon regarding what insurance benefit he wished to use during this hospitlization. Pt states he will use his Medicare A&B, and [employer] insurance. Eboni Howe [facility] notified via Phone call today. Charly VALDES, RN Clinical Child Care Sitter Pager [phone] Danielle Worrell, AGILE BUSINESS ANALYST - 05/05/2012 11:41 AM EDT Napoleon Jiménez 1945 [id number] NANCY MOORE MD Follow Up Diabetes Consult Patient Interview Mr. Jiménez stated that he is feeling better this morning, met with high heel builder to discuss carb counting to Na restriction. He stated that Only I can make the changes that need to happen, in reference to his health, he is motivated to work with the [facility]OVE program at the [place], and I recommended that he continue to see the certified adaptive physical educator available at [facility]. Breakfast this morning had oatmeal, small muffin, appetite stable. This morning will be his first dose of glimepiride with breakfast and will see if effective, if not then will need bolus insulin at home (novolog or humalog). Temp: [36.6 ??C (97.9 ??F)-36.8 ??C (98.2 ??F)] Heart Rate: [45-57] Resp: [18-20] BP: (137-174)/(45-82) SpO2: [91 %-98 %] Current Regimen Lantus 30 units QPM Once eating start glimepiride at 2 mg - this should be held if he is NPO Novolog correction insulin moderate scale before meals and at bedtime BG Checks before meals at bedtime and 2AM for safety Recent Glucose Levels Recent Labs Basename 05/05/12 0754 05/05/12 0235 05/04/12202505/04/12 1718 05/04/12 1547 05/04/12 1154 05/04/12 0748 05/03/12 1950 05/03/12 1704 ??? POCGLU 177 109 181 218* 114 136 157 242* 89 ASSESSMENT ?? Elevated post prandial BG level last night ?? This morning also high, despite goal fasting 2AM BG level ?? Will follow up with noon BG level and if discharged later today. PLAN No changes at this time will follow up this afternoon if discharged today. Danielle Worrell APRN [facility] Endocrinology Diabetes Management [phone] Pager [phone] This case was discussed with Dr. Goran Roper. 20 min time spent in patient care with 15 counseling, seeing patient, changing orders and discussionwith the patient and the primary team as well as nursing. Delfino Pagan MD - 05/05/2012 11:25 AM EDT Images from the original note were not included. Inpatient Cardiology Progress Note Patient Name: Napoleon Jiménez Service: CHILDRENS CLUB ATTENDANT / PA Responsible Attending: Dr. Pagan Reason for continued hospitalization: Evaluation and management of shortness of breath Resume PO lasix dosing Active Problems: Active Hospital Problems Diagnoses ??? Shortness of breath ??? Neuropathic pain ??? ASCVD (arteriosclerotic cardiovascular disease) --CABG in 2007, MARTINEZ to LAD, SVG to OM, SVG to ramus --BMS to 90% stenosis of LAD and BMS to LCX in 2001 after having anginal symptoms --Recurrent pain with cath in 08/2002. Showed mild restenosis in LCX stent, severe restenosis in LAD stent --05/05/2008 Last Cardiac Cath showed EF 45%, 20% stenosis of LAD c. LAD stent PCI with cutting balloon/brachy therapy, August 2002. d. Recurrent pain, January 2003, recatheterized at an outside facility with LAD stenosis distal to first stent, additional stent placed. e. Heart catheterization, [facility], May 06, 2003: 20% distal LM, mild diffuse proximal LAD; normal LCX and RCA; EF 45%. 2. History of pericarditis, August 2001, November 2002. ??? Heart failure Decompensated ??? 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 Hypertension Resolved Hospital Problems Diagnoses Date Resolved Interval History: Patient was able to sleep for some solid time last night but he was up at 0300. Nochest pain or shortness of breath. He feels so much better than he did when he was admitted. He remembers that [facility] Review of Systems: Review of Systems Respiratory: Negative for shortness of breath. Cardiovascular: Negative for chest pain and palpitations. Gastrointestinal: Negative for nausea. All other systems reviewed and are negative. Telemetry: HR: 41-75 sinus bradycardia, sinus rhythm with rare PACs and PVCs Meds: Scheduled Meds: ??? furosemide 80 mg Oral Daily ??? metoprolol tartrate 12.5 mg Oral Q12H MAUREEN ??? glimepiride 2 mg Oral Daily with breakfast ??? furosemide 40 mg Intravenous Once ??? sodium chloride 0.9 % 5 mL Intravenous Q12H ??? aspirin 325 mg Oral Daily ??? cloNIDine 0.1 mg Oral Daily ??? insulin glargine 30 Units Subcutaneous Nightly ??? methadone 40 mg Oral Q8H MAUREEN ??? OXYcodone 15 mg Oral Q8H MAUREEN ??? esomeprazole 40 mg Oral Nightly ? ? insulin aspart 2-8 Units Subcutaneous 4 Times Daily AC & HS ??? rosuvastatin 5 mg Oral QPM ??? losartan 100 mg Oral Daily ??? felodipine 10 mg Oral Daily Continuous Infusions: PRN Meds:.DISCONTD: regadenoson, promethazine, traZODone, nitroGLYcerin, dextrose 50%, glucagon (human recombinant), acetaminophen Physical Exam: Vital Signs: Last value Range last 24 hrs Temperature Temp: 36.8 ??C (98.2 ??F) Temp: [36.5 ??C (97.7 ??F)-36.8 ??C (98.2 ??F)] Heart Rate Heart Rate: 57 Heart Rate: [45-57] Blood Pressure BP: 174/73 mmHg BP: (124-174)/(45-82) Respiratory Rate Resp: 18 Resp: [18-20] SpO2 SpO2: 97 % SpO2: [91 %-99 %] Physical Exam Nursing note and vitals reviewed. Constitutional: He is oriented to person, place, and time. He appears well- developed and well-nourished. No distress. HENT: Head: Normocephalic and atraumatic. Eyes: Right eye exhibits no discharge. Left eye exhibits no discharge. Neck: Normal range of motion. Neck supple. Cardiovascular: Normal rate, regular rhythm, normal heart sounds and intact distal pulses. Exam reveals no gallop and no friction rub. No murmur heard. Pulmonary/Chest: Effort normal. No respiratory distress. He has no wheezes. He has rales (faintly atbilateral bases). Abdominal: Soft. Bowel sounds are normal. Large obese. Musculoskeletal: Normal range of motion. He exhibits no edema. Lymphadenopathy: He has no cervical adenopathy. Neurological: He is alert and oriented to person, place, and time. Skin: Skin is warm and dry. He is not diaphoretic. Psychiatric: He has a normal mood and affect. His behavior is normal. Lab Comments: Recent Labs Basename 05/05/1245105/04/1253705/03/12 175 ??? WBC 10.1* 9.4 10.5* ??? HGB 14.3 13.4* 12.6* ??? HCT 44.6 41.7 38.5* ??? PLATELET 176 165 174 Recent Labs Basename 05/03/121754 ??? INR 1.1 Recent Labs Basename 05/05/1245105/04/1238 05/03/12 175 ??? NA 142 140 143 ??? K 3.8 3.9 3.2* ??? CL 99 99 100 ??? CO2 32* 35* 34* ??? BUN 16 17 11 ??? CREATININE 0.65* 0.80 0.69* Recent Labs Basename 05/04/12537 ??? AST 21 ??? ALT 25 ??? ALKPHOS 123* ??? BILITOT 0.5 ??? BILIDIR 0.1 Recent Labs Basename 05/05/1245105/04/1238 05/03/12 1755 ??? CALCIUM 8.9 8.7 8.3* ??? MAGNESIUM -- -- 0.70 ??? PHOS -- -- -- Recent Labs Basename 05/04/12 0538 05/03/12 2259 05/03/12 1755 ??? CK 74 88 92 ? ? TROPONINT <0.03 <0.03 <0.03 Pertinent Radiographic/Diagnostic Results: I have independently visualized the following studies: Nuclear Stress: IMPRESSION: Somewhat limited evaluation for reasons as above. Inferior and inferolateral wall predominant scar with mild periinfarct ischemia involving the distal inferior and inferolateral dempsey, by report new since the prior 2003 study. [id number] hypokinesis of the inferior wall and apex also noted with an estimated LVEF of 43%, which is unchanged from that reported in 2003. NOTE: Results were telephoned by Dr. Yolanda Deluca to HERLINDA Bear, at the time of interpretation of 05/04/12 at approximately 1520 hours. Film and interpretation reviewed by the attending ECG: HR 55 sinus bradycardia with non specific T wave changes Assessment: Napoleon Jiménez is a 66 y.o. male with shortness of breath. Diuresed with IV lasix yesterday and he feels much better. EF 50%, with E/E prime of 10.9, concerning for diastolic dysfunction. Patient has not been actively watching his diet or his sugar intake. Will continue with PO lasix dosing today and will anticipate discharge home this afternoon if up ambulating without incident. Plan: Shortness of breath, possible diastolic dysfunction Nuclear stress pending for today Daily weights Much improved with IV lasix dosing CAD On aspirin, beta mateus, ARB, statin, prn nitro Nuclear stress as above Hypertension SBP 100-120s On Clonidine, beta mateus, ARB Reduced metoprolol to BID, given low HR overnight Diabetes mellitus with neuropathy On lantus and sliding scale insulin HA1c 8.3, followed by diabetes management team On methadone and oxycodone for pain Diastolic Heart failure, acute on chronic EF 50% On ARB and beta mateus dosing Needs teaching Will get prescriptions at the [facility], follow up at the [facility] Discussed with Dr. Latasha Ricsk, AGILE BUSINESS ANALYST 05/05/2012 Staff Discharge Day Notation: I interviewed and examined the patient as part of the attending rounds process today. I personally reviewed the overnight events, medications, supplemental laboratory data and plan for discharge. The patient was updated on the acute cardiovascular problems that were addressed during the admission and the plan for follow up care. I spent less than 30 minutes to accomplish the above tasks. Details provided in the DC summary document. Delfino Pagan MD, MS Staff Supervisor Rubber Covering Juliette Rico RN - 05/05/2012 3:54 AM EDT 2100 Metoprolol held for HR under 50. Dr Yang aware. Juliette Rico RN - 05/05/2012 2:25 AM EDT Per nursing order, patients FSBG at 0220 was 109. Entered into doc flow sheets also Brenda Harmon - 05/04/2012 8:02 PM EDT Probation Officer Encounter Note Patient Name: Napoleon Jiménez : [id number] MR#: [id number] Admit Date: 05/03/2012 3:48 PM Hospital Day 1 day Narrative: I visited with Mr. Jiménez on nitrate operator rounds. He reported feeling well because of his strong Sikh macie. Assessment: Mr. Jiménez told me he became a Sikh 15 years ago and that he is confident that God is with him and things will be well. Intervention and Outcome: Introduced self and nitrate operator services, affirmed the power of Mr. Jiménez's macie to help with hishealing. Follow-up: Intend to follow up on rounds if Mr. Jiménez remains in care. Time in Direct Care: 5 minutes Brenda Harmon 05/04/[address] - 05/04/2012 5:01 PM EDT NUTRITION SERVICES Reason for seeing pt: Cx for DM, low sodium and weight loss education. Activity Level: mostly sedentary. Pt to start MOVE program with [facility]. Pert. Labs: HA1C 8.3, others noted. Pert. Meds: lantus and novolog, glimepiride, others noted. Ht: 182.9 cm Wt: 120.1 kg BMI: 35.9 Disease and Wellness education: No added salt diet instruction, portion sizes for carbohydrate servings and basic carbohydrate counting. Instructed patient on a consistent carbohydrate meal plan distributed in 3 meals and occasional, small snacks. Topics addressed include: Label reading, Dining out, Menu planning/spacing, carbohydrate counting basics, fiber. Patient verbalized understanding of diet instruction and was able to plan a sample meal without my assistance. Means of contact provided. Nutrition to follow weekly while hospitalized unless consulted sooner. Rinku Taveras MD - 05/04/2012 11:22 AM EDT Images from the original note were not included. Cardiology Staff Addendum: This 66 y.o. year-old patient was seen today with associate provider Wu Ricks and was personally interviewed and examined. Agree with documentation. Appropriate data, including labs, ECGs and other diagnostic studies were independently reviewed. Briefly, he has been stable overnight as he has been diuresed. He says he slept well and had no breathing problems. His cardiac enzymes remain negative. An echocardiogram showed an ejection fraction of50% with segmental wall motion abnormalities. His chest x-ray shows mild heart failure. BP 124/47 Pulse 46 Temp(Src) 36.5 ??C (97.7 ??F) (Oral) Resp 20 Ht 182.9 cm (6') Wt 119 kg(262 lb 5.6 oz) BMI 35.58 kg/m2 SpO2 99% Examination: His examination is relatively unchanged. His vital signs are listed above. His jugular venous pressures did not seem elevated. His lungs were clear. His heart exam revealed a regular rhythm with a soft systolic ejection murmur at the apex. There were no rubs or gallops. He had a trace of lower extremity edema bilaterally. Assessment: He is slightly improved with diuresis. The extent to which ischemia is playing a part ofhis clinical presentation is unclear. Given that his ejection fraction is only mildly reduced, clarification about underlying ischemia will be helpful. Plan: 1. Continue current medications 2. Continue gentle diuresis 3. Nuclear stress test later today to evaluate for ischemia Rinku De Jesus MD, [facility], [facility] Inpatient Cardiology Progress Note Patient Name: Napoleon Jiménez Service: CHILDRENS CLUB ATTENDANT / PA Responsible Attending: Dr. De Jesus Reason for continued hospitalization: Evaluation and management of shortness of breath Active Problems: Active Hospital Problems Diagnoses ??? Shortness of breath ??? Neuropathic pain ??? ASCVD (arteriosclerotic cardiovascular disease) --CABG in 2007, MARTINEZ to LAD, SVG to OM, SVG to ramus --BMS to 90% stenosis of LAD and BMS to LCX in 2001 after having anginal symptoms --Recurrent pain with cath in 08/2002. Showed mild restenosis in LCX stent, severe restenosis in LAD stent --05/05/2008 Last Cardiac Cath showed EF 45%, 20% stenosis of LAD c. LAD stent PCI with cutting balloon/brachy therapy, August 2002. d. Recurrent pain, January 2003, recatheterized at an outside facility with LAD stenosis distal to first stent, additional stent placed. e. Heart catheterization, [facility], May 06, 2003: 20% distal LM, mild diffuse proximal LAD; normal LCX and RCA; EF 45%. 2. History of pericarditis, August 2001, November 2002. ??? Heart failure Decompensated ??? 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 Hypertension Resolved Hospital Problems Diagnoses Date Resolved Interval History: Patient was able to sleep longer last night than he has in the past. Heart rate down to the 30s when sleeping but 50s when awake. He is feeling better. Review of Systems: Review of Systems Respiratory: Negative for shortness of breath. Cardiovascular: Negative for chest pain and palpitations. Gastrointestinal: Negative for nausea. All other systems reviewed and are negative. Telemetry: HR: 36-70 sinus bradycardia, sinus rhythm with rare PACs Meds: Scheduled Meds: ??? metoprolol tartrate 12.5 mg Oral Q12H MAUREEN ??? furosemide 40 mg Intravenous Once ??? DISCONTD: atropine 0.5 mg Intravenous Once ??? sodium chloride 0.9 % 5 mL Intravenous Q12H ??? aspirin 325 mg Oral Daily ??? cloNIDine 0.1 mg Oral Daily ??? insulin glargine 30 Units Subcutaneous Nightly ??? methadone 40 mg Oral Q8H MAUREEN ??? OXYcodone 15 mg Oral Q8H MAUREEN ??? esomeprazole 40 mg Oral Nightly ? ? insulin aspart 2-8 Units Subcutaneous 4 Times Daily AC & HS ??? rosuvastatin 5 mg Oral QPM ??? losartan 100 mg Oral Daily ??? felodipine 10 mg Oral Daily ??? potassium chloride 60 mEq Oral Once ??? DISCONTD: felodipine 25 mg Oral Daily ??? DISCONTD: losartan 100 mg Oral Daily ??? DISCONTD: Lutein 6 mg Oral Daily ??? DISCONTD: metoprolol tartrate 12.5 mg Oral Q6H MAUREEN Continuous Infusions: PRN Meds:.perflutren protein-A microspheres, promethazine, traZODone, nitroGLYcerin, dextrose 50%, glucagon (human recombinant), acetaminophen, DISCONTD: nitroGLYcerin Physical Exam: Vital Signs: Last value Range last 24 hrs Temperature Temp: 36.8 ??C (98.2 ??F) Temp: [36.5 ??C (97.7 ??F)-36.8 ??C (98.2 ??F)] Heart Rate Heart Rate: 53 Heart Rate: [51-62] Blood Pressure BP: 128/54 mmHg BP: (110-167)/(54-80) Respiratory Rate Resp: 20 Resp: [20-22] SpO2 SpO2: 97 % SpO2: [82 %-97 %] Physical Exam Nursing note and vitals reviewed. Constitutional: He is oriented to person, place, and time. He appears well- developed and well-nourished. No distress. HENT: Head: Normocephalic and atraumatic. Eyes: Right eye exhibits no discharge. Left eye exhibits no discharge. Neck: Normal range of motion. Neck supple. Cardiovascular: Normal rate, regular rhythm, normal heart sounds and intact distal pulses. Exam reveals no gallop and no friction rub. No murmur heard. Pulmonary/Chest: Effort normal. No respiratory distress. He has no wheezes. He has rales (faintly atbilateral bases). Abdominal: Soft. Bowel sounds are normal. Large obese. Musculoskeletal: Normal range of motion. He exhibits no edema. Lymphadenopathy: He has no cervical adenopathy. Neurological: He is alert and oriented to person, place, and time. Skin: Skin is warm and dry. He is not diaphoretic. Psychiatric: He has a normal mood and affect. His behavior is normal. Lab Comments: Recent Labs Basename 05/04/1238 05/03/121754 ??? WBC 9.4 10.5* ??? HGB 13.4* 12.6* ??? HCT 41.7 38.5* ??? PLATELET 165 174 Recent Labs Basename 05/03/121754 ??? INR 1.1 Recent Labs Basename 05/04/12 0538 05/03/121754 ??? NA 140 143 ??? K 3.9 3.2* ??? CL 99 100 ??? CO2 35* 34* ??? BUN 17 11 ??? CREATININE 0.80 0.69* Recent Labs Basename 05/04/12537 ??? AST 21 ??? ALT 25 ??? ALKPHOS 123* ??? BILITOT 0.5 ??? BILIDIR 0.1 Recent Labs Basename 05/04/12 0538 05/03/121754 ??? CALCIUM 8.7 8.3* ??? MAGNESIUM -- 0.70 ??? PHOS -- -- Recent Labs Basename 05/04/1238 05/03/12 2259 05/03/121754 ??? CK 74 88 92 ? ? TROPONINT <0.03 <0.03 <0.03 Pertinent Radiographic/Diagnostic Results: I have independently visualized the following studies: ECHO: 1. The left ventricle is moderately dilated. Global left ventricular systolic function is mildly reduced. Ejection fraction is estimated to be 50%. There are left ventricular segmental wall motion abnormalities present, as shown in the diagram below. 2. The right ventricle is mildly dilated. Right ventricular global systolic function is normal. 3. There is mild to moderate (1-2+/4+) mitral regurgitation present. 4. The estimated pulmonary artery systolic pressure is 48 mmHg. 5. See remainder of report for additional findings. CXR: Impression Mildly increased pulmonary venous hypertension in comparison to the prior exam. Only trace pleural effusion. Stable cardiomediastinal silhouette with large fat pad paracardial at the left heart border. Nuclear stress test: pending Assessment: Napoleon Jiménez is a 66 y.o. male with shortness of breath. Possible heart failure exacerbation vs anginal symptom at this time. Echo as above. EF 50%. IV lasix 40 mg given x 1 this morning. Nuclear stress test pending for today. Patient needs education about diet and weight monitoring forhome. HA1c is also 8.3 on metformin and lantus dosing. Will proceed with diabetes management consult. Plan: Shortness of breath Likely due to heart failure, and possible ischemia Echo as above Nuclear stress pending for today IV lasix x 1 this morning Daily weights CAD On aspirin, beta mateus, ARB, statin, prn nitro ? Throat tightness as anginal equivalent Nuclear stress today Hypertension SBP 100-120s On Clonidine, beta mateus, ARB Reduced metoprolol to BID, given low HR overnight (sleeping) Diabetes mellitus with neuropathy On lantus and sliding scale insulin HA1c 8.3 On methadone and oxycodone for pain Heart failure EF 50% On ARB and beta mateus dosing Needs teaching [place] get prescriptions at the [place], follow up at the [facility] Discussed with Dr. Liza Ricks, AGILE BUSINESS ANALYST 05/04/2012 Charly Rojas RN - 05/04/2012 10:50 AM EDT Office of Care Management (OCM) / Clinical Child Care Sitter (CRC)/ Initial Assessment Discussed patient with Provider Team and in multidisciplinary discharge-planning rounds. Reviewed record and interviewed patient. Introduced/reviewed CRC role and services accepted. REASON for HOSPITALIZATION: Shortness of breath PREVIOUS FUNCTIONAL STATUS: Independent at home. Drives and preforms own ADLS. CURRENT FUNCTIONAL STATUS: A&Ox3. Calm and Pleasant SOCIAL / FAMILY SUPPORTS Lives with his Gia. States he has a large family that live close by. ADVANCE DIRECTIVES: NO AD. CRC gave pt copy of [place] AD. Pt has requested desire to complete. Notified Josue Mackenzie for assistance. INSURANCE COVERAGE / FINANCIAL ISSUES: [employer], [employer] and pt states 100% benefit [facility] with [facility]. Pt states no financial concernsat this time. Some confusion About where the pt wanted to receive care brought to CRC's attention. CRC asked pt directly if he wished to have his care at the [place] or [facility]. Pt states he would like to continue his care at [facility] and have Rx and follow up care at the [facility]. CURRENT HOME/COMMUNITY SERVICES/EQUIPMENT: DME:[facility] Agency:None Other: FIRMWARE DEVELOPER REFERRAL: Notified Josue Mackenzie MSW - Support/Financial/Medication Assistance; See FIRMWARE DEVELOPER notes for further needs. PRIMARY CARE PHYSICIAN: NANCY MOORE MD [id number] [facility] / [facility] [id number] POTENTIAL DISCHARGE NEEDS: None ID at this time TRANSPORTATION @ D/C: Family will provide ride at time of d/c. PLAN: CRC will continue to monitor progress, follow for continuity of care and assist with dischargeplanning while hospitalized . Juliette Rico RN - 05/04/2012 1:36 AM EDT Report noted that patient has a reaction to betablockers of lowered heart rate. Discussed with Dr. Yang before giving 1900 dose of 12.5 mg metoprolol. Patient takes atenolol at home without negative effect, so Dr Yang said to give the 1900 dose if patient's HR over 50. HR at time was in 50s and low 60s. At 2330, patient's HR in upper 40s, but patient reported he was not experiencing any lightheadednessor SOB. At 0100, patient's HR dipping down to upper 30s. Woke patient up, and patient reported feeling lightheaded. Dr Yang ordered .5mg atropine. Set up [employer] Monitor at bedside to monitor HR. Before atropine was administered, patient's HR came back up into low 50s, and patient said he no longer felt lightheaded. Dr Yang said NOT to give atropine, but to monitor HR and reassess if he HR dips into upper 30s again, or if patient feels symptomatic. Patient understands to ring if he feels lighteaded. Patient's HR maintaining in low 40s, but patient reports that he no longer feels lightheaded. Continuing to monitor. documented in this encounter H&P Notes Wu Ricks APRN - 05/03/2012 6:02 PM EDT Cardiology Admission H&P Patient Name: Napoleon Jiménez Date of : 1945 Age: 66 y.o. Hospital Admit Date: 05/03/2012 Inpatient Attending: Dr. De Jesus PCP: NANCY MOORE MD Presenting Diagnosis/Chief Complaint: Shortness of breath Active Problem List: Active Hospital Problems Diagnoses ??? Shortness of breath ??? Neuropathic pain ??? ASCVD (arteriosclerotic cardiovascular disease) --CABG in 2007, MARTINEZ to LAD, SVG to OM, SVG to ramus --BMS to 90% stenosis of LAD and BMS to LCX in 2001 after having anginal symptoms --Recurrent pain with cath in 08/2002. Showed mild restenosis in LCX stent, severe restenosis in LAD stent --05/05/2008 Last Cardiac Cath showed EF 45%, 20% stenosis of LAD c. LAD stent PCI with cutting balloon/brachy therapy, August 2002. d. Recurrent pain, January 2003, recatheterized at an outside facility with LAD stenosis distal to first stent, additional stent placed. e. Heart catheterization, [facility], May 06, 2003: 20% distal LM, mild diffuse proximal LAD; normal LCX and RCA; EF 45%. 2. History of pericarditis, August 2001, November 2002. ??? Heart failure Decompensated ??? 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 Hypertension Resolved Hospital Problems Diagnoses Date Resolved History of Present Illness: HPI Comments: Patient is 66 year old with known CAD with CABG in 2007, diabetes with neuropathy, hypertension and ischemic cardiomyopathy. He has been feeling short of breath the past few months. He was hoping that it would pass. He is in the midst of transitioning his care from Dr. Melissa to the [facility]. The patient has been feeling poorly the past few weeks and he has been taking sl nitroglycerin when he is feeling short of breath as he hasn't had chest pain as an anginal equivalent. He had chest pain with his stents in 2002 but no chest pain when he had his CABG in 2007, likely due to his DMneuropathy. Today he needed to take two sl sprays to go down and then up the basement stairs. Guido segun diaphoresis. He states that the sl sprays are helpful but he needed 5 sprays so he sought care at [facility]. The patient states he has difficulty sleeping and sometimes wakes up with a throat tightening, whichmay be his anginal equivalent and shortness of breath. He sleeps on 2 pillows and a wedge due to hisacid reflux. He has noticed an increase in his abdominal girth and he has not been weighing himself daily as he has been instructed in the past. He has not noted any lower extremity edema. He does not have a specific diet at home. He has [facility]. He has had leg weakness in the past few weeks. Intrestingly he had this symptom with lipitor in the past and the [facility] a few weeks ago. He was able to tolerated low dose crestor dosing without this side effect. At [facility] he was given 100 mg of IV lasix despite a K of 3.4 and no repletion. He arrives with no shortness of breath or throat tightening. Past Medical History: Past Medical History Diagnosis Date ??? Shortness of breath 05/03/2012 ??? NSTEMI (non-ST elevated myocardial infarction) 09/12/2008 ??? Neuropathic pain 12/17/2011 ??? Ischemic cardiomyopathy 09/16/2008 ??? Hypertension ??? Diabetes mellitus with neuropathy ??? ASCVD (arteriosclerotic cardiovascular disease) Surgical History/Problems: Past Surgical History Procedure Date ??? Coronary artery bypass graft 08/2008 Significant Family History: Family History Problem Relation Age of Onset ??? Heart Disease Father Hypertension Social History: History Social History ??? Marital Status: Spouse Name: N/A Number of Children: N/A ??? 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 Smoking status: Former Smoker Quit date: 10/26/1991 ??? Smokeless tobacco: Not on file ??? Alcohol Use: No ??? Drug Use: Not on file ??? Sexually Active: Not on file Other Topics Concern ??? Not on file Social History Narrative Lives with in [place], [place]. Has VA services as he is 100% connected due to Agent Arun. Worked for the [employer] in the past. REVIEW OF SYSTEMS: Review of Systems Constitutional: Positive for diaphoresis and activity change. Negative for fever, appetite change, fatigue and unexpected weight change. HENT: Positive for tinnitus (chronic). Negative for hearing loss, congestion, sore throat, trouble swallowing and neck pain. Gastrointestinal: Positive for nausea, abdominal distention and anal bleeding (hemmrhoids). Negativefor vomiting, abdominal pain, diarrhea and constipation. Genitourinary: Positive for frequency (due to lasix). Negative for dysuria, urgency and hematuria. Musculoskeletal: Positive for arthralgias (uses pain medication). Neurological: Positive for weakness (bilateral lower extremities since being on lipitor) and light-headedness (with position change). Negative for dizziness and syncope. Psychiatric/Behavioral: Negative for hallucinations and confusion. The patient is not nervous/anxious. All other systems reviewed and are negative. Medications: Prescriptions prior to admission Medication Sig Dispense Refill ??? promethazine (PHENERGAN) 25 mg tablet Take 25 mg by mouth every 6 hours as needed. ??? traZODone (DESYREL) 50 mg tablet Take 50 mg by mouth nightly as needed. ??? OXYcodone (ROXICODONE) 15 mg immediate release tablet Take 15 mg by mouth every 8 hours. ??? methadone (DOLOPHINE) 10 mg tablet Take 40 mg by mouth every 8 hours. ??? losartan (COZAAR) 100 mg tablet Take 100 mg by mouth daily. ??? potassium chloride (K-DUR) 10 mEq tablet Take 10 mEq by mouth 2 times daily. ??? omeprazole (PRILOSEC) 40 mg capsule Take 40 mg by mouth every evening. ??? furosemide (LASIX) 80 mg tablet Take 80 mg by mouth daily. ??? FELODIPINE ORAL Take 25 mg by mouth every morning. ??? atenolol (TENORMIN) 25 mg tablet Take 25 mg by mouth daily. ??? aspirin 81 mg EC tablet Take 81 mg by mouth daily. ??? insulin glargine (LANTUS) 100 unit/mL vial injection Inject 30 Units subcutaneously nightly. ??? metFORMIN (GLUCOPHAGE) 500 mg tablet Take 1,000 mg by mouth 2 times daily (with meals). ??? Lutein 6 mg Cap Take 6 mg by mouth daily. ??? atorvastatin (LIPITOR) 40 mg tablet Take 40 mg by mouth daily. ??? nitroGLYcerin (NITROLINGUAL) 0.4 mg/dose spray 1 [place](s), Translingual, PRN ??? cloNIDine (CATAPRES) 0.1 mg tablet Take 0.1 mg by mouth daily. Allergies: Allergies Allergen Reactions ??? Penicillins Hives Anaphylaxis ??? Lipitor (Atorvastatin) Other (See Comments) Leg weakness ??? Fentanyl Other (See Comments) Confusion ??? Ambien (Zolpidem) Other (See Comments) confusion PHYSICAL EXAM: Last set of vital signs: BP 167/72 Pulse 57 Temp(Src) 36.6 ??C (97.9 ??F) (Oral) Resp 22 Ht 182.9 cm (6') Wt 120.1 kg (264 lb 12.4 oz) BMI 35.91 kg/m2 SpO2 94% Physical Exam Nursing note and vitals reviewed. Constitutional: He is oriented to person, place, and time. He appears well- developed and well-nourished. No distress. HENT: Head: Normocephalic. Eyes: Right eye exhibits no discharge. Left eye exhibits no discharge. Neck: Normal range of motion. Neck supple. No JVD (unable to assess due to body habitus) present. Cardiovascular: Normal rate, regular rhythm, normal heart sounds and intact distal pulses. Exam reveals no gallop and no friction rub. No murmur heard. Pulmonary/Chest: Effort normal. No respiratory distress. He has no wheezes. He has rales (R>L at base). Abdominal: Soft. Bowel sounds are normal. He exhibits no distension. No tenderness. He has no rebound. Large, round, obese Musculoskeletal: Normal range of motion. He exhibits edema (1+ bilateral lower extremities; large obese abdomen). Lymphadenopathy: He has no cervical adenopathy. Neurological: He is alert and oriented to person, place, and time. Skin: Skin is warm and dry. He is not diaphoretic. No erythema. Psychiatric: He has a normal mood and affect. His behavior is normal. Diagnostics: I have independently visualized the following studies: ECG: HR 53 sinus bradycardia with no acute change LABS: Recent Results (from the past 24 hour(s)) POCT GLUCOSE LAB USE ONLY Component Value Range ??? POC Glucose 89 60 - 199 (mg/dL) PROTHROMBIN TIME Component Value Range ??? PT 13.9 11.9 - 14.7 (sec) ??? INR 1.1 0.9 - 1.1 APTT Component Value Range ??? PTT 28 25 - 35 (sec) CBC (WITH DIFF) Component Value Range ??? WBC 10.5 (*) 4.0 - 10.0 (x10(3)/mcL) ??? RBC 4.57 (*) 4.63 - 6.08 (x10(6)/mcL) ??? Hemoglobin 12.6 (*) 13.7 - 17.5 (gm/dL) ??? Hematocrit 38.5 (*) 40.0 - 51.0 (%) ??? MCV 84.2 79.0 - 92.0 (fL) ??? MCH 27.6 25.6 - 32.2 (pg) ??? MCHC 32.7 32.0 - 36.5 (gm/dL) ??? Platelets 174 145 - 370 (x10(3)/mcL) ??? RDWSD 42.9 35.0 - 46.0 (fL) ??? RDWCV 14.2 10.9 - 14.4 (%) ??? MPV 11.1 9.0 - 12.0 (fL) DIFFERENTIAL, AUTOMATED Component Value Range ??? Neutrophils % 70.8 34.0 - 71.0 (%) ??? Neutr Abs (ANC) 7.41 (*) 1.50 - 6.30 (x10(3)/mcL) ??? Lymphocytes % 18.9 (*) 19.0 - 53.0 (%) ??? Lymphocytes Abs 2.0 1.0 - 3.6 (x10(3)/mcL) ??? Monocytes % 9.4 4.0 - 13.0 (%) ??? Monocyte Abs 1.0 0.2 - 1.0 (x10(3)/mcL) ??? Eosinophils % 0.4 0.0 - 7.0 (%) ??? Eosinophils Abs 0.0 0.0 - 0.5 (x10(3)/mcL) ??? Basophils % 0.2 0.0 - 2.0 (%) ??? Basophils Abs 0.0 0.0 - 0.2 (x10(3)/mcL) ??? Immature Gran % 0.30 0.00 - 0.66 (%) ??? Kayla Gran Abs 0.03 0.00 - 0.05 (x10(3)/mcL) From [facility] 05/03/12 WBC 12.2 Hgb 14 Hct 42.8 Plt 184 PT INR PTT Na 141 K 3.4 Cl 101 CO2 29.3 BUN 12 Cr 0.8 Glucose 157 Ca 9.2 Mag 1.5 BNP 767 #1 #2 #3 CK CK-MB Troponin <0.04 ASSESSMENT: Patient is 66 year old with known history of CAD, ICM, DM, HTN who comes in with shortness of breath. Last echo reportedly a few years ago. Abdominal girth increase likely due to heart failure, +/- ischemic cause given his lack of anginal symptoms prior to his CABG in 2007. Will proceed with echo and nuclear stress test tomorrow. Will inform [facility] at [facility]. Switch back tocrestor given bilateral lower extremity weakness since being back on lipitor. Fasting lipids in AM. TREATMENT PLAN: Shortness of breath Likely due to heart failure, and possible ischemia Echo tomorrow Nuclear stress tomorrow IV lasix as needed Daily weights CAD On aspirin, beta mateus, ARB, statin, prn nitro ? Throat tightness as anginal equivalent Nuclear stress tomorrow HTN Follow trends On Clonidine, beta mateus, ARB Diabetes mellitus with neuropathy On lantus and sliding scale insulin HA1c in AM On methadone and oxycodone for pain Heart failure Will need echo tomorrow Unknown last EF Discussed with Dr. De Jesus Provider: WU RICKS APRN Provider #: [id number] Rinku De Jesus MD - 05/03/2012 5:40 PM EDT Images from the original note were not included. Cardiology Staff Addendum: This 66 y.o. year-old patient was seen today with associate provider Wu Ricks and was personally interviewed and examined. Agree with documentation. Appropriate data, including labs, ECGs and other diagnostic studies were independently reviewed. Briefly, this is a 66-year-old man with known coronary disease having recently undergone stenting [id number] and three-vessel bypass surgery at [facility] in 2007. He has a nonischemic cardiomyopathy, hypertension, diabetes, and a significant neuropathy. He presents now with 2 months of dyspnea on exertion which has been particularly prominent during the last couple of weeks. In addition he has noted increasing abdominal girth. In recent days he has had fairly frequent episodes of PND. He had a bad episode last night and this morning had recurrent episodes of shortness of breath for which she treated herself with nitroglycerin on 5 different occasions. He has also had a few days of a cramping feeling in the back of his throat which has also been nitroglycerin responsive. He was evaluated at [facility] earlier today where his 12-lead EKG showed only some nonspecific T wave changes. His BNP level was elevated. His troponin was negative. He wassomewhat hypokalemic with a potassium of 3.4 and his white count was mildly elevated at 12.7. BP 167/72 Pulse 57 Temp(Src) 36.6 ??C (97.9 ??F) (Oral) Resp 22 Ht 182.9 cm (6') Wt 120.1 kg (264 lb 12.4 oz) BMI 35.91 kg/m2 SpO2 94% Examination: On physical examination this evening he appeared in no acute distress. His color was good. His vital signs are listed above. His general venous pressures. Moderately elevated. His lungs were entirely clear. His heart exam revealed a regular rhythm with a prominent second heart sound. He had no murmurs, rubs, or gallops. His abdomen was distended and nontender. He had 1+ edema below the knees bilaterally. Twelve-lead EKG: This showed sinus bradycardia with nonspecific T wave changes. Assessment: Although his symptoms are most consistent with heart failure, the extent to which they may be a manifestation of cardiac ischemia is unclear. His response to nitroglycerin is somewhat nonspecific and could represent an impact upon either heart failure or cardiac ischemia. Plan: 1. Continue serial cardiac enzymes and EKGs 2. Potassium supplementation 3. Echocardiogram to evaluate LV function 4. Once potassium has been confirmed and supplemented as needed, continue diuresis with Lasix 5. Probable stress test tomorrow (anticipate Regadenoson sestamibi) Rinku De Jesus MD, [facility], [facility] documented in this encounter Procedure Notes Provider, Scanning - 05/06/2012 10:05 AM EDTAssociated Order(s): SCAN DOC: SHRIMP PACKER; SCAN DOC: SHRIMP PACKER documented in this encounter Miscellaneous Notes Discharge Summary - Delfino Pagan MD - 05/05/2012 1:25 PM EDT Images from the original note were not included. Inpatient Cardiology - Discharge Summary Patient Name: Napoleon Jiménez Patient Age: 66 y.o. Birthdate: 1945 Admit date: 05/03/2012 Discharge date : 05/05/2012 Attending Physician: Delfino Pagan MD Discharge Diagnoses (Hospital Problems) and Secondary Diagnoses (Chronic Problems): Active Hospital Problems Diagnoses ??? Neuropathic pain ??? ASCVD (arteriosclerotic cardiovascular disease) --CABG in 2007, MARTINEZ to LAD, SVG to OM, SVG to ramus --BMS to 90% stenosis of LAD and BMS to LCX in 2001 after having anginal symptoms --Recurrent pain with cath in 08/2002. Showed mild restenosis in LCX stent, severe restenosis in LAD stent --05/05/2008 Last Cardiac Cath showed EF 45%, 20% stenosis of LAD c. LAD stent PCI with cutting balloon/brachy therapy, August 2002. d. Recurrent pain, January 2003, recatheterized at an outside facility with LAD stenosis distal to first stent, additional stent placed. e. Heart catheterization, [facility], May 06, 2003: 20% distal LM, mild diffuse proximal LAD; normal LCX and RCA; EF 45%. 2. History of pericarditis, August 2001, November 2002. ??? Heart failure, acute on chronic diastolic Decompensated ??? 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 Hypertension Resolved Hospital Problems Diagnoses Date Resolved ??? Shortness of breath 05/05/2012 Active Non-Hospital Problems Diagnoses ??? Ischemic cardiomyopathy Diastolic dysfunction, EF 50% (05/04/12) ??? NSTEMI (non-ST elevated myocardial infarction) Elevated Troponins/NSTEMI Operations/Major Procedures: Echo 05/04/12 1. The left ventricle is moderately dilated. Global left ventricular systolic function is mildly reduced. Ejection fraction is estimated to be 50%. There are left ventricular segmental wall motion abnormalities present, as shown in the diagram below. 2. The right ventricle is mildly dilated. Right ventricular global systolic function is normal. 3. There is mild to moderate (1-2+/4+) mitral regurgitation present. 4. The estimated pulmonary artery systolic pressure is 48 mmHg. 5. See remainder of report for additional findings. Nuclear Stress: 05/04/12 IMPRESSION: Somewhat limited evaluation for reasons as above. Inferior and inferolateral wall predominant scar with mild periinfarct ischemia involving the distal inferior and inferolateral dempsey, by report new since the prior 2003 study. [id number] hypokinesis of the inferior wall and apex also noted with an estimated LVEF of 43%, which is unchanged from that reported in 2003. NOTE: Results were telephoned by Dr. Yolanda Deluca to HERLINDA Bear, at the time of interpretation of 05/04/12 at approximately 1520 hours. Film and interpretation reviewed by the attending History of Presentation: Patient is 66 year old with known CAD with CABG in 2007, diabetes with neuropathy, hypertension and ischemic cardiomyopathy. He has been feeling short of breath the past few months. He was hoping that it would pass. He is in the midst of transitioning his care [facility] Dr. Melissa [facility]. The patient has been feeling poorly the past few weeks and he has been taking sl nitroglycerin when he is feeling short of breath as he hasn't had chest pain as an anginal equivalent. He had chest pain with his stents in 2002 but no chest pain when he had his CABG in 2007, likely due to his DM neuropathy. Today he needed to take two sl sprays to go down and then up the basement stairs. Associated diaphoresis. He states that the sl sprays are helpful but he needed 5 sprays so he sought care at [facility]. The patient states he has difficulty sleeping and sometimes wakes up with a throat tightening, whichmay be his anginal equivalent and shortness of breath. He sleeps on 2 pillows and a wedge due to hisacid reflux. He has noticed an increase in his abdominal girth and he has not been weighing himself daily as he has been instructed in the past. He has not noted any lower extremity edema. He does not have a specific diet at home. He has recently [facility] a [facility] to help [facility]. He has had leg weakness in the past few weeks. Interestingly he had this symptom with lipitor in thepast and the [facility] lip[facility] a few weeks ago. He was able to tolerated low dose crestor dosing without this side effect. At [facility] he was given 100 mg of IV lasix despite a K of 3.4 and no repletion. He arrives with no shortness of breath or throat tightening. Hospital Course: Dyspnea, acute on chronic diastolic heart failure: The patient arrived with shortness of breath. Diuresed with IV lasix with symptomatic improvement with breathing and with abdominal size. Echo was done that showed EF of 50% and wall motion abnormalities corresponding to his earlier coronary events. Pro BNP was 4424. Nuclear stress test was done to ensure there wasn't an ischemic component. The nuclear test wasn't complete as the patient refused the CT scan used for attenuation correction. Weight on day of discharge is 118.4 kg. The patient was instructed to watch his weight daily and report weight gain for possible change in his diuretic dosing. The patient was bradycardic on a small amount of metoprolol dosing. Atenolol dose will be cut in half and the patient will take this twice daily. He continues on his ARB dosing and will resume his lasix 80 mg daily. The patient received instruction on the management of CHF including education on diet, daily weights, medication compliance, exercise, weight control, tobacco elimination. CAD The patient continues on aspirin, beta mateus, ARB, statin, prn nitro. Nuclear stress test showed inferior and inferolateral wall predominant scar with mild periinfarct ischemia involving the distal inferior and inferolateral dempsey, which will be medically managed. Hypertension The patient continued on his home dosing of blood pressure medications. His systolic blood pressure range has been 100-120s. He did not tolerated any increase in his beta mateus dosing due to bradycardia. Diabetes mellitus with neuropathy The patient was on lantus 30 Units nightly and metformin twice daily at home. HA1c 8.3 on admission.He was seen by the diabetes management team and he was started on glimepiride. The patient was counseled to check his sugars multiple times the next few days and report his findings to his PCP. He continued on his methadone and oxycodone for neuropathic pain. Hyperlipidemia The patient had been switched to lipitor recently and bilateral leg weakness resulted, which is an ADR he had with lipitor in the past. He was changed to crestor which he had previously tolerated. Total cholesterol of 129, HDL 37, LDL 83, Trig 98. Smoking cessation was advised & discussed.n/a The patient was discharged home in stable condition. Important Studies and Lab Data: Labs: Lab Results Component Value Date WBC 10.1* 05/05/2012 HGB 14.3 05/05/2012 HCT 44.6 05/05/2012 PLATELET 176 05/05/2012 Recent Labs Basename 05/03/12 1755 ??? INR 1.1 Lab Results Component Value Date NA 142 05/05/2012 K 3.8 05/05/2012 CL 99 05/05/2012 CO2 32* 05/05/2012 BUN 16 05/05/2012 CREATININE 0.65* 05/05/2012 Recent Labs Basename 05/04/12 0538 ??? TSH 2.89 Recent Labs Basename 05/04/12 0538 ??? HA1C 8.3* Recent Labs Basename 05/04/12 0538 05/03/12 2259 05/03/12 1755 ??? CK 74 88 92 ? ? TROPONINT <0.03 <0.03 <0.03 Lab Results Component Value Date CHLPL 129 05/04/2012 CHLPL 129 05/04/2012 HDL 37* 05/04/2012 HDL 37* 05/04/2012 CHOLHDL 3.5 05/04/2012 CHOLHDL 3.5 05/04/2012 TRIG 98 05/04/2012 TRIG 98 05/04/2012 LDLCHOL 72 05/04/2012 LDLDIRECT 83 05/04/2012 Pending Studies and Lab Data: none Discharge Conditions/Prognosis: Ambulatory without shortness of breath, uses cane at home Discharge to: Home Discharge Medications: Current Discharge Medication List New Meds Dose Details glimepiride (AMARYL) 2 mg tablet 2 mg Take 1 tablet by mouth daily. Qty: 30 tablet Refills: 2 rosuvastatin (CRESTOR) 5 mg tablet 5 mg Take 1 tablet by mouth every evening. Qty: 30 tablet Refills: 2 nitroGLYcerin (NITROSTAT) 0.4 mg SL tablet 0.[address] 1 tablet under the tongue every 5 minutes as needed for Chest pain. Qty: 90 tablet Refills: 4 Continued medications with revised dosing Dose Details atenolol (TENORMIN) 25 mg tablet 12.5 mg Take 0.5 tablets by mouth 2 times daily. Qty: 30 tablet Refills: Continued medications, unchanged Dose Details promethazine (PHENERGAN) 25 mg tablet 25 mg Take 25 mg by mouth every 6 hours as needed. Qty: Refills: traZODone (DESYREL) 50 mg tablet 50 mg Take 50 mg by mouth nightly as needed. Qty: Refills: OXYcodone (ROXICODONE) 15 mg immediate release tablet 15 mg Take 15 mg by mouth every 8 hours. Qty: Refills: methadone (DOLOPHINE) 10 mg tablet 40 mg Take 40 mg by mouth every 8 hours. Qty: Refills: losartan(COZAAR) 100 mg tablet 100 mg Take 100 mg by mouth daily. Qty: Refills: potassium chloride (K-DUR) 10 mEq tablet 10 mEq Take 10 mEq by mouth 2 times daily. Qty: Refills: omeprazole (PRILOSEC) 40 mg capsule 40 mg Take 40 mg by mouth every evening. Qty: Refills: furosemide (LASIX) 80 mg tablet 80 mg Take 80 mg by mouth daily. Qty: Refills: FELODIPINE ORAL 25 mg Take 25 mg by mouth every morning. Qty: Refills: aspirin 81 mg EC tablet 81 mg Take 81 mg by mouth daily. Qty: Refills: insulin glargine (LANTUS) 100 unit/mL vial injection 30 Units Inject 30 Units subcutaneously nightly. Qty: Refills: metFORMIN (GLUCOPHAGE) 500 mg tablet 1,000 mg Take 1,000 mg by mouth 2 times daily (with meals). Qty: Refills: Lutein 6 mg Cap 6 mg Take 6 mg by mouth daily. Qty: Refills: atorvastatin (LIPITOR) 40 mg tablet 40 mg Take 40 mg by mouth daily. Qty: Refills: cloNIDine (CATAPRES) 0.1 mg tablet 0.1 mg Take 0.1 mg by mouth daily. Qty: Refills: Medications STOPPED Dose nitroGLYcerin (NITROLINGUAL) 0.4 mg/dose spray Updated Allergies/ADRs: Allergies Allergen Reactions ??? Penicillins Hives Anaphylaxis ??? Lipitor (Atorvastatin) Other (See Comments) Leg weakness ??? Fentanyl Other (See Comments) Confusion ??? Ambien (Zolpidem) Other (See Comments) confusion Follow-up Recommendations for Providers: Encourage weight loss and adherence to dietary requirements Follow response to diabetic changes, patient to keep sugar record Patient switched to crestor due to ADR with lipitor. Please follow response. Patient is new to [place] services, will need short scripts provided on at the [facility]. Instructions Given to Patient at Discharge: Provider Instructions Anti-coagulation follow up: n/a Call your doctor if: Chest pain, shortness of breath, pain or swelling in legs occurs. If you have non-emergent questions between now and the time of your follow up appointments: During 8am-5pm Thursday through Thursday call [phone] to speak with a nurse in the cardiology clinic All other times call [phone] and ask to speak to the wet room worker international marketing coordinator. Return to work: No longer works Driving: No driving for 48 hours after catheterization Follow up Appointments: PCP Edil Schmidt APRN May 11, 2012 at 2:00 pm Supervisor Rubber Covering At Desk [address] at the [facility] May 13, 2012 at 1:00 pm Home oxygen therapy: N/A Arrangements for VNA/home care: none General Instructions Napoleon Jiménez [id number] 1945 Diabetes Care Discharge Instructions Please start checking your Blood glucose every morning, and for the next week check before meals and1-2 hours after dinner. Please maintain a log of your blood sugars and bring this in to your new primary care provider. You may resume your metformin at your previous dose tonight with supper, and continue to take this as you did before 1,000 mg of metformin by mouth with breakfast and supper. Start glimepiride 2 mg by mouth with breakfast. If not eating then do not take. Instructions for Lantus Insulin (LONG ACTING) 1. Inject LANTUS insulin at 8PM each night. Start at 30 units tonight. 2. Check blood glucose (BG) before breakfast 3. If the blood glucose before breakfast is over 150 for two days in a row, add TWO units of insulinto the next LANTUS dose. This increased dose becomes your new dose, continue to increase as needed. 4. If the blood glucose before breakfast under 90 for two days in a row, subtract TWO units of insulin from the next LANTUS dose. This lower dose becomes your new dose, continue to decrease as needed. 5. If you should forget to take your Lantus, take your usual dose as soon as you realize it was missed. Gradually work back to taking it at 8PM, moving it by 2 - 3 hours each day. Treatment of Low Blood Sugar (Hypoglycemia) If your BG is lower than 80, you are likely to feel shaky, sweaty and lightheaded. This is a signal that your body needs more sugar. Quickly eat or drink a small serving of something sweet, such as: ?? 4 ounces fruit juice or regular (not diet) soda ?? 6 lifesavers ?? 4-8 glucose tablets (~15-30 gm of glucose) ?? If your BG is very low <50, you can double the amount above or take 30 gm of glucose gel/tablets. ?? Sit and rest and you should feel better within a few minutes. Once you are feeling better, try todetermine why your BG was so low. Common causes of hypoglycemia include skipping a meal, lots of exercise, too much insulin or any combination of these things. Understanding the cause my help you to avoid another low BG in the future. Call your doctor for blood sugars under 80 or over 250 twice in one day. Danielle Worrell [facility] Section of Endocrinology Diabetes Management Provider Contact Information: WU RICKS APRN [phone] Discharge References/Attachments: Discharge References/Attachments HEART FAILURE: AFTER YOUR VISIT (CHILEAN) Signed: Wu Ricks APRN 05/05/2012 Consult Note - Danielle Worrell, AGILE BUSINESS ANALYST - 05/04/2012 11:48 AM EDT Napoleon Jiménez 1945 [id number] Inpatient Endocrinology Glucose Management Consult Date of Consultation: 05/04/2012 Place of Consultation: [place] Consult Requested by: Dr. Jiménez, Cardiology Reason for Consultation: Napoleon Jiménez is a 66 y.o. male who was admitted on 05/03/2012 for the diagnosis of increase shortness of breath, abdominal girth and edema. 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 Diabetes History: Napoleon Jiménez has had type 2 diabetes for the last 6-7 years. He has no family history of diabetes, however he did have exposure to agent orange, which epidemiological data from [facility] shown increased prevalence of T2DM, and elevated insulin levels, amongst those with high TCDD (2,3,7,8 [id number]) levels. Mr. Jiménez has been on lantus and metformin since time of diagnosis, [facility] and [facility]. He has also seen Ciarra Joe RD, LEAHE at [facility] in the past with his . Current outpatient diabetes regimen: Medications: Lantus 30 units QD, Metformin 1,000 mg PO BID Monitoring: is done once times a day and typically shows 190 mg/dL fasting BG level, and when he checks in the afternoon 260's, especially high is checks 2 hours after his meal Most recent HA1c was done on 8.3 and was 8.3 %, suggesting an average glucose of 192 mg/dL for the past 6 weeks. Typical diet is: 2-3 meals and occasional snacks a day. Poor appetite, has been taking anti emetic in the morning due to morning nausea. He also stated that he prepares most o f the meals in the home due to his no being well, and his appetite has been poor Typical exercise regimen is Very limited due to neuropathy and recently notes to have increased weakness b/l LE's Trouble with hypoglycemia: no, did not recall any episodes of low BG levels at home Diabetes Complications Status: Eyes: + blurry vision at night, denied any known retinopathy, stated that he has had an annual eye exam Kidneys: denied any known nephropathy Feet: + peripheral neuropathy Sensory: + peripheral neuropathy B/L LE's feet up to about mid shah, very sensitive, painful and numbness Autonomic: none known Cardiac: + ASCVD, HTN, Hx CABG in 2007 Current Hospital Diabetes Care: Medications: Lantus 30 units QPM, received yesterday evening and moderate correction scale before meals and at bedtime Monitoring: Before meals and at bedtime Diet: NPO Allergies Allergen Reactions ??? Penicillins Hives Anaphylaxis ??? Lipitor (Atorvastatin) Other (See Comments) Leg weakness ??? Fentanyl Other (See Comments) Confusion ??? Ambien (Zolpidem) Other (See Comments) confusion Past Medical History: Past Medical History Diagnosis Date ??? Shortness of breath 05/03/2012 ??? NSTEMI (non-ST elevated myocardial infarction) 09/12/2008 ??? Neuropathic pain 12/17/2011 ??? Ischemic cardiomyopathy 09/16/2008 ??? Hypertension ??? Diabetes mellitus with neuropathy ??? ASCVD (arteriosclerotic cardiovascular disease) Current Hospital Medications: ??? metoprolol tartrate 12.5 mg Oral Q12H MAUREEN ??? furosemide 40 mg Intravenous Once ??? DISCONTD: atropine 0.5 mg Intravenous Once ??? sodium chloride 0.9 % 5 mL Intravenous Q12H ??? aspirin 325 mg Oral Daily ??? cloNIDine 0.1 mg Oral Daily ??? insulin glargine 30 Units Subcutaneous Nightly ??? methadone 40 mg Oral Q8H MAUREEN ??? OXYcodone 15 mg Oral Q8H MAUREEN ??? esomeprazole 40 mg Oral Nightly ? ? insulin aspart 2-8 Units Subcutaneous 4 Times Daily AC & HS ??? rosuvastatin 5 mg Oral QPM ??? losartan 100 mg Oral Daily ??? felodipine 10 mg Oral Daily ??? potassium chloride 60 mEq Oral Once ??? DISCONTD: felodipine 25 mg Oral Daily ??? DISCONTD: losartan 100 mg Oral Daily ??? DISCONTD: Lutein 6 mg Oral Daily ??? DISCONTD: metoprolol tartrate 12.5 mg Oral Q6H MAUREEN Social History: History Social History ??? Marital Status: Spouse Name: N/A Number of Children: N/A ??? 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 Smoking status: Former Smoker Quit date: 10/26/1991 ??? Smokeless tobacco: Not on file ??? Alcohol Use: No ??? Drug Use: Not on file ??? Sexually Active: Not on file Other Topics Concern ??? Not on file Social History Narrative Lives with in [place], [place]. Has [facility] as he is 100% connected due to Agent [place]. Worked for the [employer] in the past. ROS: Review of Systems Constitutional: Positive for activity change, appetite change (Decreased), fatigue and unexpected weight change (Gaining since dx'ed with DM 6-7 years ago). Respiratory: Positive for shortness of breath. Cardiovascular: Positive for leg swelling. Gastrointestinal: Positive for nausea (In the morning) and abdominal pain. Negative for vomiting, diarrhea and constipation. Always thirsty Drinks about 8-9 cups of water per day Genitourinary: Negative for frequency. Neurological: Positive for weakness (Increased B/L LE's over the last 2 weeks, concerned about his stability and fearful of falling, stated that it's worsened recently and uses a cane with ambulation). Physical Exam: Last set of Vitals: BP 124/47 Pulse 46 Temp(Src) 36.5 ??C (97.7 ??F) (Oral) Resp 20 Ht 182.9 cm (6') Wt 119 kg(262 lb 5.6 oz) BMI 35.58 kg/m2 SpO2 99% Physical Exam Constitutional: He is oriented to person, place, and time. He is cooperative. He appears ill. Nasal cannula in place. Large abdominal girth, relatively thin extremities. Neurological: He is alert and oriented to person, place, and time. B/L feet to mid shah with decreased sensation Skin: Skin is warm and dry. There is pallor. No wounds on feet, however B/L feet pale Psychiatric: He has a normal mood and affect. Labs (Last 24 Hours) : Recent Results (from the past 24 hour(s)) POCT GLUCOSE LAB USE ONLY Component Value Range ??? POC Glucose 89 60 - 199 (mg/dL) PROTHROMBIN TIME Component Value Range ??? PT 13.9 11.9 - 14.7 (sec) ??? INR 1.1 0.9 - 1.1 APTT Component Value Range ??? PTT 28 25 - 35 (sec) CARDIAC ENZYMES Component Value Range ? ? Troponin-T <0.03 <=0.03 (ng/mL) ??? CK, Total 92 0 - 200 (unit/L) BMP W/FASTING GLUCOSE Component Value Range ??? Glucose Fasting 85 65 - 99 (mg/dL) ??? BUN 11 10 - 20 (mg/dL) ??? Creatinine 0.69 (*) 0.80 - 1.50 (mg/dL) ??? Sodium 143 135 - 145 (mmol/L) ??? Potassium 3.2 (*) 3.5 - 5.0 (mmol/L) ??? Chloride 100 98 - 107 (mmol/L) ??? CO2 34 (*) 22 - 31 (mmol/L) ??? Anion Gap 9 5 - 15 (mmol/L) ??? Calcium 8.3 (*) 8.5 - 10.5 (mg/dL) ? ? Estimated GFR >60 >=60 CBC (WITH DIFF) Component Value Range ??? WBC 10.5 (*) 4.0 - 10.0 (x10(3)/mcL) ??? RBC 4.57 (*) 4.63 - 6.08 (x10(6)/mcL) ??? Hemoglobin 12.6 (*) 13.7 - 17.5 (gm/dL) ??? Hematocrit 38.5 (*) 40.0 - 51.0 (%) ??? MCV 84.2 79.0 - 92.0 (fL) ??? MCH 27.6 25.6 - 32.2 (pg) ??? MCHC 32.7 32.0 - 36.5 (gm/dL) ??? Platelets 174 145 - 370 (x10(3)/mcL) ??? RDWSD 42.9 35.0 - 46.0 (fL) ??? RDWCV 14.2 10.9 - 14.4 (%) ??? MPV 11.1 9.0 - 12.0 (fL) DIFFERENTIAL, AUTOMATED Component Value Range ??? Neutrophils % 70.8 34.0 - 71.0 (%) ??? Neutr Abs (ANC) 7.41 (*) 1.50 - 6.30 (x10(3)/mcL) ??? Lymphocytes % 18.9 (*) 19.0 - 53.0 (%) ??? Lymphocytes Abs 2.0 1.0 - 3.6 (x10(3)/mcL) ??? Monocytes % 9.4 4.0 - 13.0 (%) ??? Monocyte Abs 1.0 0.2 - 1.0 (x10(3)/mcL) ??? Eosinophils % 0.4 0.0 - 7.0 (%) ??? Eosinophils Abs 0.0 0.0 - 0.5 (x10(3)/mcL) ??? Basophils % 0.2 0.0 - 2.0 (%) ??? Basophils Abs 0.0 0.0 - 0.2 (x10(3)/mcL) ??? Immature Gran % 0.30 0.00 - 0.66 (%) ??? Kayla Gran Abs 0.03 0.00 - 0.05 (x10(3)/mcL) PRO-BRAIN NATRIURETIC PEPTIDE Component Value Range ? ? ProBNP 4424 (*) <=125 (pg/mL) MAGNESIUM Component Value Range ??? Magnesium 0.70 0.69 - 1.07 (mmol/L) POCT GLUCOSE LAB USE ONLY Component Value Range ??? POC Glucose 242 (*) 60 - 199 (mg/dL) CARDIAC ENZYMES Component Value Range ? ? Troponin-T <0.03 <=0.03 (ng/mL) ??? CK, Total 88 0 - 200 (unit/L) TSH Component Value Range ??? TSH 2.89 0.27 - 4.20 (mcIU/mL) LIPID PANEL (FASTING) Component Value Range ? ? Chol, Total 129 <=199 (mg/dL) ? ? Triglycerides 98 <=149 (mg/dL) ? ? HDL 37 (*) >=40 (mg/dL) ? ? LDL Cholesterol 72 <=99 (mg/dL) ??? Chol/HDL Ratio 3.5 (ratio) HEMOGLOBIN A1C Component Value Range ??? Hemoglobin A1C 8.3 (*) 4.3 - 6.1 (%) ??? Est Avg Gluc 192 (mg/dL) LDL CHOLESTEROL, DIRECT Component Value Range ? ? LDL Chol Direct 83 <=99 (mg/dL) HDL/CHOL PROFILE Component Value Range ? ? Chol, Total 129 <=199 (mg/dL) ? ? HDL 37 (*) >=40 (mg/dL) ??? Chol/HDL Ratio 3.5 (ratio) TRIGLYCERIDE Component Value Range ? ? Triglycerides 98 <=149 (mg/dL) GLUCOSE, FASTING Component Value Range ??? Glucose Fasting 158 (*) 65 - 99 (mg/dL) HEPATIC FUNCTION PANEL Component Value Range ??? Total Protein 6.8 6.4 - 8.3 (gm/dL) ??? Albumin 3.8 3.2 - 5.2 (gm/dL) ??? AST 21 0 - 39 (unit/L) ??? ALT 25 0 - 55 (unit/L) ??? Alk Phos 123 (*) 40 - 120 (unit/L) ??? Total Bilirubin 0.5 0.2 - 1.3 (mg/dL) ??? Bili, Direct 0.1 0.0 - 0.3 (mg/dL) BMP W/FASTING GLUCOSE Component Value Range ??? Glucose Fasting 158 (*) 65 - 99 (mg/dL) ??? BUN 17 10 - 20 (mg/dL) ??? Creatinine 0.80 0.80 - 1.50 (mg/dL) ??? Sodium 140 135 - 145 (mmol/L) ??? Potassium 3.9 3.5 - 5.0 (mmol/L) ??? Chloride 99 98 - 107 (mmol/L) ??? CO2 35 (*) 22 - 31 (mmol/L) ??? Anion Gap 6 5 - 15 (mmol/L) ??? Calcium 8.7 8.5 - 10.5 (mg/dL) ? ? Estimated GFR >60 >=60 CBC (WITH DIFF) Component Value Range ??? WBC 9.4 4.0 - 10.0 (x10(3)/mcL) ??? RBC 4.87 4.63 - 6.08 (x10(6)/mcL) ??? Hemoglobin 13.4 (*) 13.7 - 17.5 (gm/dL) ??? Hematocrit 41.7 40.0 - 51.0 (%) ??? MCV 85.6 79.0 - 92.0 (fL) ??? MCH 27.5 25.6 - 32.2 (pg) ??? MCHC 32.1 32.0 - 36.5 (gm/dL) ??? Platelets 165 145 - 370 (x10(3)/mcL) ??? RDWSD 44.4 35.0 - 46.0 (fL) ??? RDWCV 14.4 10.9 - 14.4 (%) ??? MPV 11.4 9.0 - 12.0 (fL) DIFFERENTIAL, AUTOMATED Component Value Range ??? Neutrophils % 68.3 34.0 - 71.0 (%) ??? Neutr Abs (ANC) 6.43 (*) 1.50 - 6.30 (x10(3)/mcL) ??? Lymphocytes % 20.3 19.0 - 53.0 (%) ??? Lymphocytes Abs 1.9 1.0 - 3.6 (x10(3)/mcL) ??? Monocytes % 9.8 4.0 - 13.0 (%) ??? Monocyte Abs 0.9 0.2 - 1.0 (x10(3)/mcL) ??? Eosinophils % 1.1 0.0 - 7.0 (%) ??? Eosinophils Abs 0.1 0.0 - 0.5 (x10(3)/mcL) ??? Basophils % 0.3 0.0 - 2.0 (%) ??? Basophils Abs 0.0 0.0 - 0.2 (x10(3)/mcL) ??? Immature Gran % 0.20 0.00 - 0.66 (%) ??? Kayla Gran Abs 0.02 0.00 - 0.05 (x10(3)/mcL) CARDIAC ENZYMES Component Value Range ? ? Troponin-T <0.03 <=0.03 (ng/mL) ??? CK, Total 74 0 - 200 (unit/L) POCT GLUCOSE LAB USE ONLY Component Value Range ??? POC Glucose 157 60 - 199 (mg/dL) Recent Labs Basename 05/04/12 0748 05/03/12 1950 05/03/12 1704 ??? POCGLU 157 242* 89 Assessment: Mr. Jiménez is a pleasant type 2 diabetic, with cardiac history that includes NSTEMI, ASCVD, CABG 2007. His A1C of 8.3% suggests inadequate glycemic control, and his current diabetic regimen does not address post prandial hyperglycemia, which he notes at home is up to 260 mg/dL on the few times he's checked 2 hours post meal. We discussed the use of rapid acting insulin with meals, however this as per patient would be very challenging to start, he recalled being on glyburide in the past and was uncertain why this was not continued, denied low BG levels or problems with his kidneys. Will recommend a trial of glimepiride start at a low dose with 2 mg with breakfast tomorrow. If no improvement then Mr. Jiménez agreed to trial rapid acting insulin with meals. Will continue with moderate correction scale as well, depending on trend may have Q 4 hour testing and correction over PM. Plan: In hospital ?? Lantus 30 units QPM ?? Once eating start glimepiride at 2 mg - this should be held if he is NPO ?? Novolog correction insulin moderate scale before meals and at bedtime ?? BG Checks before meals at bedtime and 2AM for safety, IF Elevated Bg trend today then may change to Q 4hour testing over PM. residential management: ?? Discussed goal of HbA1C <7% - if this can be achieved without low BG levels, due to the risk of hypoglycemia, especially with his history of cardiac disease. ?? Recommend 30 minutes of exercise daily -as tolerated, may need a Cardiac rehab program ?? Patient encouraged to eat 3 balanced meals with moderate portions of carbohydrates with each meal ?? Goal LDL <70. Goal HDL >40 ?? Yearly dilated eye exam ?? Yearly urine micro albumin ?? Nightly foot inspection ?? Biannual dental exams Danielle Worrell APRN [facility] Endocrinology Diabetes Management [phone] Pager [phone] This case was discussed with Dr. Goran Roper. 55 min time spent in patient care with 45 counseling, seeing patient, changing orders and discussionwith the patient and the primary team as well as nursing. Miscellaneous - Provider, Scanning - 05/03/2012 7:44 PM EDT documented in this encounter Plan of Treatment Not on filedocumented as of this encounter Procedures Procedure Name Priority Date/Time Associated Diagnosis Comme nts SHRIMP PACKER SCAN 05/06/2012 10:05 Res ults for this AM EDT procedure are i n the results section. POCT GLUCOSE Routine 05/05/2012 2:13 Results for this PM EDT procedure are i n the results section. POCT GLUCOSE Routine 05/05/2012 7:54 Results for this AM EDT procedure are i n the results section. EKG 12-LEAD Routine 05/05/2012 7:34 ASCVD Results for this AM EDT (arteriosclerotic procedure are in cardiovascular the results disease) section. BMP W/FASTING GLUCOSE Routine 05/05/2012 4:52 Res ults for this AM EDT procedure are i n the results section. DIFFERENTIAL, Routine 05/05/2012 4:52 Results for this AUTOMATED AM EDT procedure are i n the results section. CBC (WITH DIFF) Routine 05/05/2012 4:52 Results f or this AM EDT procedure are i n the results section. POCT GLUCOSE Routine 05/05/2012 2:35 Results for this AM EDT procedure are i n the results section. POCT GLUCOSE Routine 05/04/2012 8:26 Results for this PM EDT procedure are i n the results section. POCT GLUCOSE Routine 05/04/2012 5:18 Results for this PM EDT procedure are i n the results section. POCT GLUCOSE Routine 05/04/2012 3:47 Results for this PM EDT procedure are i n the results section. NM PHARMACOLOGIC Routine 05/04/2012 2:49 Results for this STRESS AND REST PM EDT procedure ar e in MYOCARDIAL PERFUSION the res ults section. POCT GLUCOSE Routine 05/04/2012 11:54 Results for this AM EDT procedure are i n the results section. ECHOCARDIOGRAM Routine 05/04/2012 9:36 ASCVD Results fo r this TRANSTHORACIC AM EDT (arteriosclerotic procedure are in cardiovascular the results disease) section. POCT GLUCOSE Routine 05/04/2012 7:48 Results for this AM EDT procedure are i n the results section. EKG 12-LEAD Routine 05/04/2012 7:09 ASCVD Results for this AM EDT (arteriosclerotic procedure are in cardiovascular the results disease) section. BMP W/FASTING GLUCOSE Routine 05/04/2012 5:38 Res ults for this AM EDT procedure are i n the results section. DIFFERENTIAL, Routine 05/04/2012 5:38 Results for this AUTOMATED AM EDT procedure are i n the results section. CARDIAC ENZYMES Routine 05/04/2012 5:38 Results f or this ([facility]) AM EDT procedure are i n the results section. CBC (WITH DIFF) Routine 05/04/2012 5:38 Results f or this AM EDT procedure are i n the results section. TRIGLYCERIDE Routine 05/04/2012 5:38 Results for this AM EDT procedure are i n the results section. TSH Routine 05/04/2012 5:38 Results for this AM EDT procedure are i n the results section. LDL CHOLESTEROL, Routine 05/04/2012 5:38 Results for this DIRECT AM EDT procedure are i n the results section. HDL/CHOL PROFILE Routine 05/04/2012 5:38 Results for this AM EDT procedure are i n the results section. HEMOGLOBIN A1C Routine 05/04/2012 5:38 Results fo r this AM EDT procedure are i n the results section. GLUCOSE, FASTING Routine 05/04/2012 5:38 Results for this AM EDT procedure are i n the results section. HEPATIC FUNCTION PANEL Routine 05/04/2012 5:38 Re sults for this AM EDT procedure are i n the results section. LIPID PANEL (REFLEX Routine 05/04/2012 5:38 Resul ts for this DIRECT LDL) AM EDT procedure are i n the results section. NUCLEAR STRESS Routine 05/04/2012 Shortness of breath CARDIOLOGY RESULTS CARDIAC ENZYMES STAT 05/03/2012 10:59 Results for this ([facility]) PM EDT procedure are i n the results section. XR CHEST PA AND Routine 05/03/2012 9:21 Results f or this LATERAL PM EDT procedure are i n the results section. POCT GLUCOSE Routine 05/03/2012 7:50 Results for this PM EDT procedure are i n the results section. BMP W/FASTING GLUCOSE STAT 05/03/2012 5:55 Res ults for this PM EDT procedure are i n the results section. DIFFERENTIAL, STAT 05/03/2012 5:55 Results for this AUTOMATED PM EDT procedure are i n the results section. CARDIAC ENZYMES STAT 05/03/2012 5:55 Results f or this ([facility]) PM EDT procedure are i n the results section. APTT STAT 05/03/2012 5:55 Results for this PM EDT procedure are i n the results section. PROTHROMBIN TIME STAT 05/03/2012 5:55 Results for this PM EDT procedure are i n the results section. CBC (WITH DIFF) STAT 05/03/2012 5:55 Results f or this PM EDT procedure are i n the results section. PRO-BRAIN NATRIURETIC STAT 05/03/2012 5:55 Res ults for this PEPTIDE PM EDT procedure are i n the results section. MAGNESIUM STAT 05/03/2012 5:55 Results for this PM EDT procedure are i n the results section. POCT GLUCOSE Routine 05/03/2012 5:04 Results for this PM EDT procedure are i n the results section. EKG 12-LEAD STAT 05/03/2012 4:50 Chest pain Results for this PM EDT procedure are i n the results section. documented in this encounter Results SCAN DOC: SHRIMP PACKER (05/06/2012 10:05 AM EDT) Narrative 05/06/2012 1:37 PM EDT Procedure Note Provider, Scanning - 05/06/2012 10:05 AM EDT Scanning Provider MEDIA MGR SCAN EXT ORDR/RSLT (ABNORMAL) POCT GLUCOSE LAB USE ONLY (05/05/2012 2:13 PM EDT) athologist Signature POC Glucose 237 (H) 60 - 199 CERNER mg/dL [facility] Comment: Supplemental ranges: <110 mg/dL before meals <200 mg/dL all other times of the day Specimen Anatomical Collection Method Collection Time Receive d Time (Source) Location / / Volume Laterality Blood specimen 05/05/2012 2:13 PM 012 2:13 (specimen) EDT PM EDT Rinku De Jesus MD POINT OF CARE TEST ORDERABLE S Performing Organization Address City/State/ZIP [place] [address] CERNER MILLENNIUM POCT GLUCOSE LAB USE ONLY (05/05/2012 7:54 AM EDT) P athologist Signature POC Glucose 177 60 - 199 CERNER mg/dL MILL[facility] Comment: Supplemental ranges: <110 mg/dL before meals <200 mg/dL all other times of the day Specimen Anatomical Collection Method Collection Time Receive d Time (Source) Location / / Volume Laterality Blood specimen 05/05/2012 7:54 AM 012 7:54 (specimen) EDT AM EDT Rinku De Jesus MD POINT OF CARE TEST ORDERABLE S Performing Organization Address City/[facility]/[place] [address] CERNER MILLENNIUM EKG 12 Lead (05/05/2012 7:34 AM EDT) Component Value Ref Range Test Analysis Performed Patholog t Method Time At Signature Ventricular rate 55 BPM MUSE SYSTEM Atrial Rate 55 BPM MUSE SYSTEM P-R Interval 176 ms MUSE SYSTEM QRS Duration 92 ms MUSE SYSTEM Q-T Interval 496 ms MUSE SYSTEM QTC Calculated 474 ms MUSE SYSTEM (Bezet) Calculated P [place] -23 degrees MUSE SYSTEM Calculated R [place] 17 degrees MUSE SYSTEM Calculated T [place] -21 degrees MUSE SYSTEM INTERPRETATION Sinus bradycardia MUSE SY STEM Nonspecific ST and T wave abnormality Prolonged QT Abnormal ECG Confirmed by MD Byron, Rodney ([id number]) on 05/05/2012 9:21:40 AM Specimen Anatomical Collection Method Collection Time Receive d Time (Source) Location / / Volume Laterality 05/05/2012 7:34 AM 2 9:21 EDT AM EDT Rinku De Jesus MD ECG ORDERABLES Performing Organization Address City/State/ZIP Code Phon e Number MUSE SYSTEM (ABNORMAL) DIFFERENTIAL, AUTOMATED (05/05/2012 4:52 AM EDT) Patholo gist Method Time Signature Neutrophils % 68.9 34.0 - CERNER 71.0 % MILLENNIUM Neutr Abs (ANC) 6.98 (H) 1.50 - CERNER 6.30 MILLENNIUM x10(3)/mc L Lymphocytes % 18.6 (L) 19.0 - CERNER 53.0 % MILLENNIUM Lymphocytes Abs 1.9 1.0 - 3.6 CERNER x10(3)/mc MILLENNIUM L Monocytes % 10.4 4.0 - CERNER 13.0 % MILLENNIUM Monocyte Abs 1.0 0.2 - 1.0 CERNER x10(3)/mc MILLENNIUM L Eosinophils % 1.7 0.0 - 7.0 CERNER % MILLENNIUM Eosinophils Abs 0.2 0.0 - 0.5 CERNER x10(3)/mc MILLENNIUM L Basophils % 0.2 0.0 - 2.0 CERNER % MILLENNIUM Basophils Abs 0.0 0.0 - 0.2 CERNER x10(3)/mc MILLENNIUM L Immature Gran % 0.20 0.00 - CERNER 0.66 % [facility] Comment: Immature granulocytes(IG's)percentage an d absolute count will include metamyelocytes, myelocytes, and promyelo cytes. Blood smears from CBCs yielding IG's will be scanned manually for concor dance. If this scan disagrees with the automated IG or if promyelocytes are not ed, a manual differential will be performed. Kayla Gran Abs 0.02 0.00 - 0.05 x10(3)/mcL CER NER MILLENNIUM Specimen Anatomical Collection Method Collection Time Receive d Time (Source) Location / / Volume Laterality Blood specimen 05/05/2012 4:52 AM 012 5:06 (specimen) EDT AM EDT Rinku De Jesus MD HEMATOLOGY ORDERABLES Performing Organization Address City/State/ZIP Code Phon e Number [place] [phone] CERNER MILLENNIUM (ABNORMAL) CBC (with Diff) (05/05/2012 4:52 AM EDT) P athologist Signature WBC 10.1 (H) 4.0 - 10.0 CERNER x10(3)/mcL MILLENNIUM RBC 5.20 4.63 - CERNER 6.08 MILLENNIUM x10(6)/mcL Hemoglobin 14.3 13.7 - CERNER 17.5 gm/dL MILLENNIUM Hematocrit 44.6 40.0 - CERNER 51.0 % MILLENNIUM MCV 85.8 79.0 - CERNER 92.0 fL MILLENNIUM MCH 27.5 25.6 - CERNER 32.2 pg MILLENNIUM MCHC 32.1 32.0 - CERNER 36.5 gm/dL MILLENNIUM Platelets 176 145 - 370 CERNER x10(3)/mcL [facility] RDWSD 43.9 35.0 - CERNER 46.0 fL MILLENNIUM RDWCV 14.2 10.9 - CERNER 14.4 % MILLENNIUM MPV 10.9 9.0 - 12.0 CERNER fL MILLENNIUM Specimen Anatomical Collection Method Collection Time Receive d Time (Source) Location / / Volume Laterality Blood specimen 05/05/2012 4:52 AM 012 5:06 (specimen) EDT AM EDT Resulting Agency Comment Spec In Lab Rinku De Jesus MD HEMATOLOGY ORDERABLES Performing Organization Address City/State/[place] [address] CERNER MILLENNIUM (ABNORMAL) BMP w/fasting Glucose (05/05/2012 4:52 AM EDT) athologist Signature Glucose 119 (H) 65 - 99 CERNER Fasting mg/dL MILLENNIUM Comment: ?Fasting* Glucose Interpretive C riteria Normal ?65-99 mg/dL Impaired Fasting glucose ?100-125 mg/dL Consistent with Diabetes Mellitus ? >or= 126 mg/dL *Fasting is defined as no caloric intake for at least 8 hours In the absence of unequivocal hypergly cemia a plasma glucose value of >or= 126 mg/dL should be repeated on a subseq uent day. Diagnosis and Classification of Diabetes Mellitus, Position Statement from the [place] [employer]. ??Diabete s Care, Volume 33, Supplement 1, Oct 2009 BUN 16 10 - 20 mg/dL CERNER MILLENNIU M Creatinine 0.65 (L) 0.80 - 1.50 mg/dL CERNER MILL ENNIUM Comment: Please note that the pediatric reference intervals supplied above were not validated at [facility]. Results from pediatri c patients should be interpreted in conjunction to the patient's age, height and muscle mass. Sodium 142 135 - 145 mmol/L CERNER KORIN NIUM Potassium 3.8 3.5 - 5.0 mmol/L CERNER KORIN NIUM Comment: Please note: ??Patients with WBC >100,00 0 may have falsely elevated Potassium levels. ??For accurate Potassium quantif ication in these patients send serum separator tube (gold top) for subsequent determinations. ??Contact the Clinical Chemistry Laboratory if there are any qu estions. Chloride 99 98 - 107 mmol/L CERNER MILLENN IUM CO2 32 (H) 22 - 31 mmol/L CERNER MILLENNI UM Anion Gap 11 5 - 15 mmol/L CERNER MILLENNIU M Calcium 8.9 8.5 - 10.5 mg/dL CERNER KORIN NIUM Estimated GFR >60 >=60 CERNER MILLENNIU M Comment: The National Kidney Disease Education Pr ogram (NKDEP) has recommended all laboratories report estimated GFR (eGFR) along with plasma creatinine measurements to assist you with recognit ion of early kidney disease. Caveats: ??Plasma creatinine should be a t steady-state (unchanged within the past week). For patient s multiply eGFR by 1.2. The MDRD equation was developed using patients be tween the ages of 18 and 70 years. ?? The MDRD equation has not been validated for patients < 18 years of age and should not be used to assess renal function in the pediatric population. ??The MDRD eGFR equation will also overestimate the true GFR of patients above the age of 70. ??This overestimation is variable bu t increases with age. At present, NKDEP does NOT recommend usi ng the MDRD equation for drug dosing purposes and pharmacists should continue to use their current dosing methods. In addition, numerical eGFR values great er than 60 ml/min/1.73 square meters should be treated as > 60, and not an ex act number due to greater inaccuracies at these higher values. Per NKDEP, they classify normal renal function as any GFR >60ml/min/1.73 square meters; chronic kidney disease wh en GFR <60, and renal failure when GFR <15. ??This calculation may not be valid for patients with atypical muscle mass (very lean or obese), acute renal failur e, and in patients with diabetic kidney disease. References: http://nkdep.nih.gov/resources/NKDEP_Sug gestn4Labs_0606_508.pdf http://www.kidney.org/professionals/kls/ pdf/faq_gfr.pdf Maratata K, Cira NA, Michele AK, Abdiel TS, Manjinder AD, Riki TODD. Relative performance of the MDRD and CKD-EPI equa tions for estimating glomerular filtration rate among patients with vari ed clinical presentations. Clin J Am Soc Nephrol;6:1963-72. Specimen Anatomical Collection Method Collection Time Receive d Time (Source) Location / / Volume Laterality Blood specimen 05/05/2012 4:52 AM 012 5:06 (specimen) EDT AM EDT Resulting Agency Comment Spec In Lab Rinku De Jesus MD CHEMISTRY ORDERABLES Performing Organization Address City/[facility]/ZIP Code Phon e Number [address] CERNER MILLENNIUM POCT GLUCOSE LAB USE ONLY (05/05/2012 2:35 AM EDT) P athologist Signature POC Glucose 109 60 - 199 CERNER mg/dL [facility] Comment: Supplemental ranges: <110 mg/dL before meals <200 mg/dL all other times of the day Specimen Anatomical Collection Method Collection Time Receive d Time (Source) Location / / Volume Laterality Blood specimen 05/05/2012 2:35 AM 012 2:35 (specimen) EDT AM EDT Rinku De Jesus MD POINT OF CARE TEST ORDERABLE S Performing Organization Address City/[facility]/ZIP Code Phon e Number [address] CERNER MILLENNIUM POCT GLUCOSE LAB USE ONLY (05/04/2012 8:26 PM EDT) P athologist Signature POC Glucose 181 60 - 199 CERNER mg/dL MILLENNIUM Comment: Supplemental ranges: <110 mg/dL before meals <200 mg/dL all other times of the day Specimen Anatomical Collection Method Collection Time Receive d Time (Source) Location / / Volume Laterality Blood specimen 05/04/2012 8:26 PM 012 8:26 (specimen) EDT PM EDT Rinku De Jesus MD POINT OF CARE TEST ORDERABLE S Performing Organization Address City/[facility]/ZIP Code Phon e Number [address] CERNER MILLENNIUM (ABNORMAL) POCT GLUCOSE LAB USE ONLY (05/04/2012 5:18 PM EDT) athologist Signature POC Glucose 218 (H) 60 - 199 CERNER mg/dL [facility] Comment: Supplemental ranges: <110 mg/dL before meals <200 mg/dL all other times of the day Specimen Anatomical Collection Method Collection Time Receive d Time (Source) Location / / Volume Laterality Blood specimen 05/04/2012 5:18 PM 012 5:18 (specimen) EDT PM EDT Rinku De Jesus MD POINT OF CARE TEST ORDERABLE S Performing Organization Address City/State/ZIP Code Phon e Number [address] CERNER MILLENNIUM POCT GLUCOSE LAB USE ONLY (05/04/2012 3:47 PM EDT) athologist Signature POC Glucose 114 60 - 199 CERNER mg/dL [facility] Comment: Supplemental ranges: <110 mg/dL before meals <200 mg/dL all other times of the day Specimen Anatomical Collection Method Collection Time Receive d Time (Source) Location / / Volume Laterality Blood specimen 05/04/2012 3:47 PM 012 3:47 (specimen) EDT PM EDT Rinku De Jesus MD POINT OF CARE TEST ORDERABLE S Performing Organization Address City/State/ZIP Code Phon e Number [address] [facility] myocardial perfusion scan, pharmacologic (05/04/2012 2:49 PM EDT) Anatomical Region Laterality Modality Other Specimen (Source) Anatomical Collection Method Collection Time Re ceived Time Location / / Volume Laterality 05/04/2012 2:49 PM EDT Impressions 05/04/2012 10:43 PM EDT IMPRESSION: Somewhat limited evaluation for reasons as above. Inferior and inferolateral wall predominant scar with mild periinfa rct ischemia involving the distal inferior and inferolateral dempsey, by rep ort new since the prior 2002 study. ?? Igiw-jl-rtvglmog hypokinesis of the infe rior wall and apex also noted with an estimated LVEF of 43%, which is unchange d from that reported in 2002. ?? NOTE: ??Results were telephoned by Dr. Abdirahman Deluca to HERLINDA Bear, at the time of interpretation of 2 at approximately 1520 hours. ?? Film and interpretation reviewed by the attending Narrative 05/04/2012 10:43 PM EDT REST AND REGADENOSON (LEXISCAN) SESTAMIBI (CARDIOLITE) SCANS, 05/04/12: INDICATION: ??Shortness of breath. ??Que stion anginal equivalent with throat tightness, history of CABG in 2007. ?? COMPARISON: ??Report from a prior myocar dial perfusion scan dated 07/27/03; this study is not available for direct compar kyra at the time of dictation. ?? TECHNIQUE: ??During rest, 11.5 mCi of te chnetium-99m sestamibi were administered intravenously. ??Approximately 15 minute s later, SPECT images of the heart were obtained with reconstruction in the shor t, vertical long and horizontal long axes. The patient then received regadenoson in travenously at a dose of 0.4 mg. ?? Twenty seconds later, 32.1 mCi of techne tium-99m sestamibi were administered intravenously. ??Images of the heart wer e then again obtained with SPECT reconstruction. No low-dose CT images for attenuation co rrection were obtained as patient refused the CT portion of the study. FINDING: ??Evaluation is somewhat limite d due to the lack of corresponding CT-attenuated corrected images. ??There is eksqoioa-ue-qlayfs LV cavity dilatation. ??There is a predominantly f ixed perfusion defect involving the inferior and inferolateral dempsey, with p erhaps mild periborder zone reversibility involving the distal infer ior and inferolateral dempsey. ??No additional reversible or fixed perfusion defects are appreciated. ??The gated images show ztzd-lt-gdakdsaw hypokinesis of the inferior wall and apex with an estimated LVEF of 43%. ?? By report, no ischemia or scar was ident ified on the prior 2002 study, and the reported estimated LVEF was 43% with mil d septal/inferior wall hypokinesis. ?? Procedure Note Zulay Woodward MD - 05/04/2012Formatt ing of this note might be different from the original. REST AND REGADENOSON (LEXISCAN) SESTAMIB I (CARDIOLITE) SCANS, 05/04/12: INDICATION: Shortness of breath. Questio n anginal equivalent with throat tightness, history of CABG in 2007. COMPARISON: Report from a prior myocardi al perfusion scan dated 07/27/03; this study is not available for direct compar kyra at the time of dictation. TECHNIQUE: During rest, 11.5 mCi of tech netium-99m sestamibi were administered intravenously. Approximately 15 minutes later, SPECT images of the heart were obtained with reconstruction in the shor t, vertical long and horizontal long axes. The patient then received regadenoson in travenously at a dose of 0.4 mg. Twenty seconds later, 32.1 mCi of techne tium-99m sestamibi were administered intravenously. Images of the heart were then again obtained with SPECT reconstruction. No low-dose CT images for attenuation co rrection were obtained as patient refused the CT portion of the study. FINDING: Evaluation is somewhat limited due to the lack of corresponding CT-attenuated corrected images. There is nfyacaou-pi-jdgkdh LV cavity dilatation. There is a predominantly fix ed perfusion defect involving the inferior and inferolateral dempsey, with p erhaps mild periborder zone reversibility involving the distal infer ior and inferolateral dempsey. No additional reversible or fixed perfusion defects are appreciated. The gated images show rdui-tt-cwcnjnbv hypokinesis of the inferior wall and apex with an estimated LVEF of 43%. By report, no ischemia or scar was ident ified on the prior 2002 study, and the reported estimated LVEF was 43% with mil d septal/inferior wall hypokinesis. IMPRESSION IMPRESSION: Somewhat limited evaluation for reasons as above. Inferior and inferolateral wall predominant scar with mild periinfa rct ischemia involving the distal inferior and inferolateral dempsey, by rep ort new since the prior 2002 study. Erpi-wy-vbzvvhdf hypokinesis of the infe rior wall and apex also noted with an estimated LVEF of 43%, which is unchange d from that reported in 2003. NOTE: Results were telephoned by Dr. Kings Deluca to HERLINDA Bear, at the time of interpretation of 2 at approximately 1520 hours. Film and interpretation reviewed by the attending Rinku De Jesus MD IMG NM ORDERABLES POCT GLUCOSE LAB USE ONLY (05/04/2012 11:54 AM EDT) P athologist Signature POC Glucose 136 60 - 199 CERNER mg/dL [facility] Comment: Supplemental ranges: <110 mg/dL before meals <200 mg/dL all other times of the day Specimen Anatomical Collection Method Collection Time Receive d Time (Source) Location / / Volume Laterality Blood specimen 05/04/2012 11:54 2 (specimen) AM EDT 11:54 AM EDT Rinku De Jesus MD POINT OF CARE TEST ORDERABLE S Performing Organization Address City/State/[place] [address] CERNER [facility] Echo Transthoracic (Complete) (05/04/2012 9:36 AM EDT) P athologist Signature EF 50 [facility] Specimen (Source) Anatomical Location Collection Method / Collectio n Time Received Time / Laterality Volume 05/04/2012 Narrative HE[facility] SYSTEM - 05/04/2012 9:51 AM EDT Procedure: ? Transthoracic Echocardiogram Patient: ? SERGE BANKS M ?(Age): 1945(66) Med Rec#: ?[id number] ? Sex: ?M ? Site Loc: ?[facility] ? Ht / Wt: ??183(cm)/119(kg) Pt. Loc: ? Adult Floor ?BSA: ?2.46 Study Date: ?05/04/2012 ? Pt. Type: Inpatient Tape: ? Referring: Rinku De Jesus Referring: AUBREE [employer] Secretary: Zoie Johns Diagnosis:CPT Code(s): ??Echo Full (9330 7), ??Spectral Doppler (47533), Color Doppler (82464), ??Optison (72540N R), Indication(s): ??CAD, H/O Rhythm: HR ?BP ?128/54 ?? SUMMARY: 1. The left ventricle is moderately dila segun. ??Global left ventricular systolic function is mildly reduced. Eje ction fraction is estimated to be 50%. There are left ventricular segme ntal wall motion abnormalities present, as shown in the diagram below. 2. The right ventricle is mildly dilated . ??Right ventricular global systolic function is normal. 3. There is mild to moderate (1-2+/4+) m itral regurgitation present. 4. The estimated pulmonary artery systol ic pressure is 48 mmHg. 5. See remainder of report for additiona l findings. FINDINGS: Study Quality ?Technically limited Left Ventricle ?The left ventricle is moderately d ilated. ?Left ventricular wall thickness is normal. ?Global left ventricular systolic f unction is mildly reduced. Ejection fraction is estimated to be 50% . ?There are left ventricular segment al wall motion abnormalities present, as shown in the diagram below. ?The ??mid anterolateral, mid infer olateral and apical lateral wall segments are hypokinetic. Left Atrium ?The left atrium is severely dilate d. Right Ventricle ?The right ventricle is mildly dila segun. ?Right ventricular global systolic function is normal. ?The estimated pulmonary artery sys tolic pressure is 48 mmHg. ?The estimated right atrial pressur e is 8 mmHg. Right Atrium ?The right atrium is severely dilat ed. Aortic Valve ?The aortic valve is probably tricu spid. ?There is no evidence of aortic yolanda ve thickening. ?Focal aortic leaflet calcification is visualized. ?Systolic excursion of the aortic v alve is normal. ?There is no evidence of aortic yolanda ve stenosis. ?Mild (1+/4+) aortic valve regurgit ation is present. Mitral Valve ?The mitral valve leaflets appear n ormal. ?There is mild to moderate (1-2+/4+ ) mitral regurgitation present. Tricuspid Valve ?The tricuspid valve appears normal in structure and function. ?There is mild (1+/4+) tricuspid re gurgitation present. Pulmonic Valve ?The pulmonic valve appears normal in structure and function. ?There is mild (1+/4+) pulmonic reg urgitation present. Pericardium ?The pericardium appears normal and there is no evidence of a pericardial effusion. Aorta ?The aortic root is normal in size. ?There is moderate dilatation of th e ascending aorta. Pulmonary Artery ?The main pulmonary artery appears normal. Venous ?The inferior vena cava appears dil ated. ?There is a greater than 50% respir atory change in the inferior vena cava dimension. Misc ?Technically difficult study. ?See remainder of report for additi onal findings. ?Two-dimensional echo, spectral Dop pler and color Doppler performed. ?Optison contrast (one 3 ml vial) w as used to enhance endocardial definition. Excess contrast was discarde d. Wall Motion: Segment Name ?Rest ? Base-Anteroseptal ?? Normal ? Base-Anterior ? Normal ? Base-Anterolateral ??Normal ? Base-Posterolateral Normal ? Base-Inferior ? Normal ? Base-Inferoseptal ?? Normal ? Mid-Anteroseptal ?Normal ? Mid-Anterior ?Normal ? Mid-Anterolateral ?? Hypokinetic ? Mid-Posterolateral ??Hypokinetic ? Mid-Inferior ?Normal ? Mid-Inferoseptal ?Normal ? [place]-Septal ? Normal ? [place]-Anterior ? Normal ? [place]-Lateral ?Hypokinetic ? [place]-Inferior ? Normal ? [place]-Tip ?Normal ? Chambers ?Value ?Units (Range) ? LV EF Est ? 55 ? % (55 to 80) ? IVSd 2D ? 0.6 ?cm ? LVIDd 2D ?6.1 ?cm ? PWd 2D ?0.7 ?cm ? LVIDs 2D ?4.2 ?cm ? LVFS 2D ? 31 ? % ? LA area ? 38 ? cm2 (<21) ? RA area ? 35 ? cm2 (<18) ? Ao root ? 3.5 ?cm (2.1 to 3.6) ? Asc Ao ?4.2 ?cm (2 to 3.5) ? Mitral Valve ?Value ?Units (Range) ? E peak ?0.87 ? m/sec ? E/A ratio ? 2.2 ?ratio ? MVDT ?385 ?msec ? E1 ?0.08 ? m/sec ? E/E1 ?10.9 ? ratio ? Tricuspid/Pulmonic Valves ?Value ?Units (Range) ? TR peak justice ? 3.2 ?m/sec ? RAP ? 8 ?mmHg ? RVSP/PASP ? 48 ? mmHg ? This report has been electronically sign ed by: _ Harsh Lipscomb M.D. ? 05/04/2012 09:50:33 Images reviewed and interpretation ame [email or web address] [facility] Cardiac Ultrasound Laboratory Procedure Note Harsh Lipscomb MD - 05/04/2012Format ting of this note might be different from the original. Procedure: Transthoracic Echocardiogram Patient: SERGE Reyez (Age): [birth year]) Med Rec#: [id number] Sex: M Site Loc: [facility] Ht / Wt: 183(cm)/119(kg) Pt. Loc: Adult Floor BSA: 2.46 Study Date: 05/04/2012 Pt. Type: Inpatie nt Tape: Referring: Rinku De Jesus Referring: AUBREE [employer] Secretary: Zoie Johns Diagnosis:CPT Code(s): Echo Full (21786) , Spectral Doppler (69392), Color Doppler (74632), Optison ([id number]) , Indication(s): CAD, H/O Rhythm: HR BP 128/54 SUMMARY: 1. The left ventricle is moderately dila segun. Global left ventricular systolic function is mildly reduced. Eje ction fraction is estimated to be 50%. There are left ventricular segme ntal wall motion abnormalities present, as shown in the diagram below. 2. The right ventricle is mildly dilated . Right ventricular global systolic function is normal. 3. There is mild to moderate (1-2+/4+) m itral regurgitation present. 4. The estimated pulmonary artery systol ic pressure is 48 mmHg. 5. See remainder of report for additiona l findings. FINDINGS: Study Quality Technically limited Left Ventricle The left ventricle is moderately dilate d. Left ventricular wall thickness is norm al. Global left ventricular systolic functi on is mildly reduced. Ejection fraction is estimated to be 50% . There are left ventricular segmental wa ll motion abnormalities present, as shown in the diagram below. The mid anterolateral, mid inferolatera l and apical lateral wall segments are hypokinetic. Left Atrium The left atrium is severely dilated. Right Ventricle The right ventricle is mildly dilated. Right ventricular global systolic funct ion is normal. The estimated pulmonary artery systolic pressure is 48 mmHg. The estimated right atrial pressure is 8 mmHg. Right Atrium The right atrium is severely dilated. Aortic Valve The aortic valve is probably tricuspid. There is no evidence of aortic valve th ickening. Focal aortic leaflet calcification is v isualized. Systolic excursion of the aortic valve is normal. There is no evidence of aortic valve st enosis. Mild (1+/4+) aortic valve regurgitation is present. Mitral Valve The mitral valve leaflets appear normal . There is mild to moderate (1-2+/4+) alicia ral regurgitation present. Tricuspid Valve The tricuspid valve appears normal in s tructure and function. There is mild (1+/4+) tricuspid regurgi tation present. Pulmonic Valve The pulmonic valve appears normal in st ructure and function. There is mild (1+/4+) pulmonic regurgit ation present. Pericardium The pericardium appears normal and ther e is no evidence of a pericardial effusion. Aorta The aortic root is normal in size. There is moderate dilatation of the asc ending aorta. Pulmonary Artery The main pulmonary artery appears gisselle l. Venous The inferior vena cava appears dilated. There is a greater than 50% respiratory change in the inferior vena cava dimension. Misc Technically difficult study. See remainder of report for additional findings. Two-dimensional echo, spectral Doppler and color Doppler performed. Optison contrast (one 3 ml vial) was us ed to enhance endocardial definition. Excess contrast was discarde d. Wall Motion: Segment Name Rest Base-Anteroseptal Normal Base-Anterior Normal Base-Anterolateral Normal Base-Posterolateral Normal Base-Inferior Normal Base-Inferoseptal Normal Mid-Anteroseptal Normal Mid-Anterior Normal Mid-Anterolateral Hypokinetic Mid-Posterolateral Hypokinetic Mid-Inferior Normal Mid-Inferoseptal Normal [place]-Septal Normal [place]-Anterior Normal [place]-Lateral Hypokinetic [place]-Inferior Normal [place]-Tip Normal Chambers Value Units (Range) LV EF Est 55 % (55 to 80) IVSd 2D 0.6 cm LVIDd 2D 6.1 cm PWd 2D 0.7 cm LVIDs 2D 4.2 cm LVFS 2D 31 % LA area 38 cm2 (<21) RA area 35 cm2 (<18) Ao root 3.5 cm (2.1 to 3.6) Asc Ao 4.2 cm (2 to 3.5) Mitral Valve Value Units (Range) E peak 0.87 m/sec E/A ratio 2.2 ratio MVDT 385 msec E1 0.08 m/sec E/E1 10.9 ratio Tricuspid/Pulmonic Valves Value Units (Range) TR peak justice 3.2 m/sec RAP 8 mmHg RVSP/PASP 48 mmHg This report has been electronically sign ed by: _ Harsh Lipscomb M.D. 05/04/2012 09:50: 33 Images reviewed and interpretation ame [email or web address] [facility] Cardiac Ultrasound Laboratory Rinku De Jesus MD ECHO ORDERABLES Performing Organization Address City/State/ZIP Code Phon e Number HEARTLAB SYSTEM POCT GLUCOSE LAB USE ONLY (05/04/2012 7:48 AM EDT) P athologist Signature POC Glucose 157 60 - 199 CERNER mg/dL [facility] Comment: Supplemental ranges: <110 mg/dL before meals <200 mg/dL all other times of the day Specimen Anatomical Collection Method Collection Time Receive d Time (Source) Location / / Volume Laterality Blood specimen 05/04/2012 7:48 AM 012 7:48 (specimen) EDT AM EDT Rinku De Jesus MD POINT OF CARE TEST ORDERABLE S Performing Organization Address City/State/[place] [address] [facility] E[facility] 12 Lead (05/04/2012 7:09 AM EDT) Component Value Ref Range Test Analysis Performed Pathologis t Method Time At Signature Ventricular rate 49 BPM MUSE SYSTEM Atrial Rate 49 BPM MUSE SYSTEM P-R Interval 168 ms MUSE SYSTEM QRS Duration 92 ms MUSE SYSTEM Q-T Interval 470 ms MUSE SYSTEM QTC Calculated 424 ms MUSE SYSTEM (Bezet) Calculated P [place] -11 degrees MUSE SYSTEM Calculated R [place] 17 degrees MUSE SYSTEM Calculated T [place] -67 degrees MUSE SYSTEM INTERPRETATION Marked sinus bradycardia MUSE SYSTEM Nonspecific ST and T wave abnormality Abnormal ECG Confirmed by MD Byron, Rodney ([id number]) on 05/04/2012 9:42:37 AM Specimen Anatomical Collection Method Collection Time Receive d Time (Source) Location / / Volume Laterality 05/04/2012 7:09 AM 2 9:42 EDT AM EDT Rinku De Jesus MD ECG ORDERABLES Performing Organization Address City/State/ZIP Code Phon e Number MUSE SYSTEM CARDIAC ENZYMES (05/04/2012 5:38 AM EDT) P athologist Signature Troponin-T <0.03 <=0.03 CERNER ng/mL [facility] Comment: 0.03 ng/mL: Represents the 99th percenti le upper reference limit for normals. >0.03 ng/mL: Elevated cardiac troponin T level indicative of myocardial damage. Diagnosis of acute, evolving or recent M I requires a typical rise and gradual fall of cTnT with at least ONE of the fo llowing: a) Ischemic symptoms b) Development of pathologic Q waves on the ECG c) ECG changes indicative of eschemia (S -T segment elevation/depression) d) Coronary artery intervention Serial bloods should be obtained for kaylin ting on admission, at 6 to 9 hrs and again at 12 to 24 hrs if earlier samples are negative and the clinical index of suspicion is high. Reference: [Myocardial infarction redefined a consensus document of the Joint [place] Society of Cardiology/[place] College of Cardiology Committee for the redefinition of myocardial infarction. Journal of the [place] College of Cardi ology 2000; 36: 959-969] CK, Total 74 0 - 200 unit/L CLINTONNER MILLENNI UM Specimen Anatomical Collection Method Collection Time Receive d Time (Source) Location / / Volume Laterality Blood specimen 05/04/2012 5:38 AM 012 6:00 (specimen) EDT AM EDT Resulting Agency Comment Spec In Lab Rinku De Jesus MD CHEMISTRY ORDERABLES Performing Organization Address City/State/[place] [address] ALANNA MILLENNIUM (ABNORMAL) DIFFERENTIAL, AUTOMATED (05/04/2012 5:38 AM EDT) [facility] gist Method Time Signature Neutrophils % 68.3 34.0 - CERNER 71.0 % MILLENNIUM Neutr Abs (ANC) 6.43 (H) 1.50 - CERNER 6.30 MILLENNIUM x10(3)/mc L Lymphocytes % 20.3 19.0 - CERNER 53.0 % MILLENNIUM Lymphocytes Abs 1.9 1.0 - 3.6 CERNER x10(3)/mc MILLENNIUM L Monocytes % 9.8 4.0 - CERNER 13.0 % MILLENNIUM Monocyte Abs 0.9 0.2 - 1.0 CERNER x10(3)/mc MILLENNIUM L Eosinophils % 1.1 0.0 - 7.0 CERNER % MILLENNIUM Eosinophils Abs 0.1 0.0 - 0.5 CERNER x10(3)/mc MILLENNIUM L Basophils % 0.3 0.0 - 2.0 CERNER % MILLENNIUM Basophils Abs 0.0 0.0 - 0.2 CERNER x10(3)/mc MILLENNIUM L Immature Gran % 0.20 0.00 - CERNER 0.66 % MILLENNIUM Comment: Immature granulocytes(IG's)percentage an d absolute count will include metamyelocytes, myelocytes, and promyelo cytes. Blood smears from CBCs yielding IG's will be scanned manually for concor dance. If this scan disagrees with the automated IG or if promyelocytes are not ed, a manual differential will be performed. Kayla Gran Abs 0.02 0.00 - 0.05 x10(3)/mcL CER NER MILLENNIUM Specimen Anatomical Collection Method Collection Time Receive d Time (Source) Location / / Volume Laterality Blood specimen 05/04/2012 5:38 AM 012 5:48 (specimen) EDT AM EDT Rinku De Jesus MD HEMATOLOGY ORDERABLES Performing Organization Address City/State/ZIP Code Phon e Number [place] [phone] CERNER MILLENNIUM (ABNORMAL) CBC (with Diff) (05/04/2012 5:38 AM EDT) P athologist Signature WBC 9.4 4.0 - 10.0 CERNER x10(3)/mcL MILLENNIUM RBC 4.87 4.63 - CERNER 6.08 MILLENNIUM x10(6)/mcL Hemoglobin 13.4 (L) 13.7 - CERNER 17.5 gm/dL MILLENNIUM Hematocrit 41.7 40.0 - CERNER 51.0 % MILLENNIUM MCV 85.6 79.0 - CERNER 92.0 fL MILLENNIUM MCH 27.5 25.6 - CERNER 32.2 pg MILLENNIUM MCHC 32.1 32.0 - CERNER 36.5 gm/dL MILLENNIUM Platelets 165 145 - 370 CERNER x10(3)/mcL MILLENNIUM RDWSD 44.4 35.0 - CERNER 46.0 fL MILLENNIUM RDWCV 14.4 10.9 - CERNER 14.4 % MILLENNIUM MPV 11.4 9.0 - 12.0 CERNER fL MILLENNIUM Specimen Anatomical Collection Method Collection Time Receive d Time (Source) Location / / Volume Laterality Blood specimen 05/04/2012 5:38 AM 012 5:48 (specimen) EDT AM EDT Resulting Agency Comment Spec In Lab Rinku De Jesus MD HEMATOLOGY ORDERABLES Performing Organization Address City/State/ZIP Code Phon e Number [place] [phone] CERNER MILLENNIUM (ABNORMAL) BMP w/fasting Glucose (05/04/2012 5:38 AM EDT) P athologist Signature Glucose 158 (H) 65 - 99 CERNER Fasting mg/dL MILLENNIUM Comment: ?Fasting* Glucose Interpretive C riteria Normal ?65-99 mg/dL Impaired Fasting glucose ?100-125 mg/dL Consistent with Diabetes Mellitus ? >or= 126 mg/dL *Fasting is defined as no caloric intake for at least 8 hours In the absence of unequivocal hypergly cemia a plasma glucose value of >or= 126 mg/dL should be repeated on a subseq uent day. Diagnosis and Classification of Diabetes Mellitus, Position Statement from the [place] Diabetes Association. ??Diabete s Care, Volume 33, Supplement 1, Oct 2009 BUN 17 10 - 20 mg/dL CERNER MILLENNIU M Creatinine 0.80 0.80 - 1.50 mg/dL CERNER MILL ENNIUM Comment: Please note that the pediatric reference intervals supplied above were not validated at [facility]. Results from pediatri c patients should be interpreted in conjunction to the patient's age, height and muscle mass. Sodium 140 135 - 145 mmol/L CERNER KORIN NIUM Potassium 3.9 3.5 - 5.0 mmol/L CERNER KORIN NIUM Comment: Please note: ??Patients with WBC >100,00 0 may have falsely elevated Potassium levels. ??For accurate Potassium quantif ication in these patients send serum separator tube (gold top) for subsequent determinations. ??Contact the Clinical Chemistry Laboratory if there are any qu estions. Chloride 99 98 - 107 mmol/L CERNER MILLENN IUM CO2 35 (H) 22 - 31 mmol/L CERNER MILLENNI UM Anion Gap 6 5 - 15 mmol/L CERNER MILLENNIU M Calcium 8.7 8.5 - 10.5 mg/dL ALANNA MACKENZIE Estimated GFR >60 >=60 ALANNA Reyez Comment: The National Kidney Disease Education Pr ogram (NKDEP) has recommended all laboratories report estimated GFR (eGFR) along with plasma creatinine measurements to assist you with recognit ion of early kidney disease. Caveats: ??Plasma creatinine should be a t steady-state (unchanged within the past week). For patient s multiply eGFR by 1.2. The MDRD equation was developed using patients be tween the ages of 18 and 70 years. ?? The MDRD equation has not been validated for patients < 18 years of age and should not be used to assess renal function in the pediatric population. ??The MDRD eGFR equation will also overestimate the true GFR of patients above the age of 70. ??This overestimation is variable bu t increases with age. At present, NKDEP does NOT recommend usi ng the MDRD equation for drug dosing purposes and pharmacists should continue to use their current dosing methods. In addition, numerical eGFR values great er than 60 ml/min/1.73 square meters should be treated as > 60, and not an ex act number due to greater inaccuracies at these higher values. Per NKDEP, they classify normal renal function as any GFR >60ml/min/1.73 square meters; chronic kidney disease wh en GFR <60, and renal failure when GFR <15. ??This calculation may not be valid for patients with atypical muscle mass (very lean or obese), acute renal failur e, and in patients with diabetic kidney disease. References: http://nkdep.nih.gov/resources/NKDEP_Sug gestn4Labs_0606_508.pdf http://www.kidney.org/professionals/kls/ pdf/faq_gfr.pdf Milagro K, Cira NA, Michele AK, Abdiel TS, Manjinder AD, Riki TODD. Relative performance of the MDRD and CKD-EPI equa tions for estimating glomerular filtration rate among patients with vari ed clinical presentations. Clin J Am Soc Nephrol;6:1963-72. Specimen Anatomical Collection Method Collection Time Receive d Time (Source) Location / / Volume Laterality Blood specimen 05/04/2012 5:38 AM 012 5:48 (specimen) EDT AM EDT Resulting Agency Comment Spec In Lab Rinku De Jesus MD CHEMISTRY ORDERABLES Performing Organization Address City/[facility]/ZIP Code Phon e Number [address] CERNER MILLENNIUM (ABNORMAL) Hepatic Function Panel (05/04/2012 5:38 AM EDT) P athologist Signature Total Protein 6.8 6.4 - 8.3 CERNER gm/dL MILLENNIUM Albumin 3.8 3.2 - 5.2 CERNER gm/dL MILLENNIUM AST 21 0 - 39 CERNER unit/L MILLENNIUM ALT 25 0 - 55 CERNER unit/L MILLENNIUM Alk Phos 123 (H) 40 - 120 CERNER unit/L MILLENNIUM Total 0.5 0.2 - 1.3 CERNER Bilirubin mg/dL MILLENNIUM Bili, Direct 0.1 0.0 - 0.3 CERNER mg/dL MILLENNIUM Specimen Anatomical Collection Method Collection Time Receive d Time (Source) Location / / Volume Laterality Blood specimen 05/04/2012 5:38 AM 012 5:48 (specimen) EDT AM EDT Resulting Agency Comment Spec In Lab Rinku De Jesus MD CHEMISTRY ORDERABLES Performing Organization Address [facility] Phon e Number [address] CERNER MILLENNIUM (ABNORMAL) Glucose, fasting (05/04/2012 5:38 AM EDT) P athologist Signature Glucose 158 (H) 65 - 99 CERNER Fasting mg/dL MILLENNIUM Comment: ?Fasting* Glucose Interpretive C riteria Normal ?65-99 mg/dL Impaired Fasting glucose ?100-125 mg/dL Consistent with Diabetes Mellitus ? >or= 126 mg/dL *Fasting is defined as no caloric intake for at least 8 hours In the absence of unequivocal hypergly cemia a plasma glucose value of >or= 126 mg/dL should be repeated on a subseq u day. Diagnosis and Classification of Diabetes Mellitus, Position Statement from the [place] Diabetes Association. ??Diabete s Care, Volume 33, Supplement 1, Oct 2009 Specimen Anatomical Collection Method Collection Time Receive d Time (Source) Location / / Volume Laterality Blood specimen 05/04/2012 5:38 AM 012 5:48 (specimen) EDT AM EDT Resulting Agency Comment Spec In Lab Rinku De Jesus MD CHEMISTRY ORDERABLES Performing Organization Address [facility] e Number [address] CERNER MILLENNIUM Triglyceride (05/04/2012 5:38 AM EDT) athologist Signature Triglycerides 98 <=149 CERNER mg/dL MILLENNIUM Comment: Reference Range: Normal triglycerides: ??<150 mg/dL Borderline high: ??150-199 mg/dL High: ??200-499 mg/dL Very high: ??>pb=134 mg/dL MARILUZ 2001; 285(19):6070-0186 Specimen Anatomical Collection Method Collection Time Receive d Time (Source) Location / / Volume Laterality Blood specimen 05/04/2012 5:38 AM 012 5:48 (specimen) EDT AM EDT Resulting Agency Comment Spec In Lab Rinku De Jesus MD CHEMISTRY ORDERABLES Performing Organization Address [facility] Phon e Number [address] CERNER MILLENNIUM (ABNORMAL) HDL/Cholesterol Profile (05/04/2012 5:38 AM EDT) P athologist Signature Chol, Total 129 <=199 mg/dL CERNER MILLENNIUM Comment: Recommendations of the NCEP Adult Treatm ent Panel for the following risk cutoff thresholds for the [place] populatio n: Desirable: <200 mg/dL Borderline High: 200-239 mg/dL High: > or = 240 mg/dL HDL 37 (L) >=40 mg/dL CERNER MILLENNIUM Comment: Reference range: ??Low HDL: ?? < 40 mg/dL ??Normal: ?40-60 mg/dL ??Desirable: > 60 mg/dL MARILUZ 2001; 285(19):4440-1908 Chol/HDL Ratio 3.5 ratio ALANNA VAUGHAN Comment: A Cholesterol to HDL ratio below 4:1 is desirable. ??Studies suggest that increased CAD risk occurs at ratios abov e 5 for females and above 6 for men. ? [place] Heart Association ??(htt p://www.americanheart.org) ? Vera Int Med, 1994; 121:641 ? AM J Med, 1998; 105(1A):48S Specimen Anatomical Collection Method Collection Time Receive d Time (Source) Location / / Volume Laterality Blood specimen 05/04/2012 5:38 AM 012 5:48 (specimen) EDT AM EDT Resulting Agency Comment Spec In Lab Rinku De Jesus MD CHEMISTRY ORDERABLES Performing Organization Address City/State/[place] [address] ALNANA GIBSON LDL Cholesterol, Direct (05/04/2012 5:38 AM EDT) athologist Signature LDL Chol 83 <=99 mg/dL [facility] Direct [facility] Comment: The National Cholesterol Education Progr am (NCEP) has set the following guidelines for LDL Cholesterol: Reference range: ?? Optimal: ?<100 mg/dL ?? Near Optimal/Above Optimal: ?? 100-1 29 mg/dL ?? Borderline high: ?130-159 mg/dL ?? High: ? 160-189 mg/dL ?? Very high: ?>aj=648 mg/dL MARILUZ 2001: 285(19):8086-8848 Specimen Anatomical Collection Method Collection Time Receive d Time (Source) Location / / Volume Laterality Blood specimen 05/04/2012 5:38 AM 012 5:48 (specimen) EDT AM EDT Resulting Agency Comment Spec In Lab Rinku De Jesus MD CHEMISTRY ORDERABLES Performing Organization Address City/State/ZIP [place] [address] LAANNA SOUZAIUM (ABNORMAL) Hemoglobin A1c (05/04/2012 5:38 AM EDT) Analysis Performed At Patho logist Time Signature Hemoglobin A1C 8.3 (H) 4.3 - 6.1 CERNER % MILLENNIUM Est Avg Gluc 192 mg/dL CERNER [facility] Comment: eAG equivalents for HbA1c percentages: HbA1c(%) ?eAG(mg/dL) 6.0 ?126 6.5 ?140 7.0 ?154 7.5 ?169 8.0 ?183 8.5 ?197 9.0 ?212 9.5 ?226 10.0 ? 240 Limitations: The eAG calculation has not been validated on women, individuals below 18 years old and above 70 years old, and individuals with hemoglobinopathies. Additional resources are available on ADA website: ??http://professional.diabetes.org/gluc osecalculator.aspx Reference: [place] WILKS, Orlando J, Jean R, et al. ??Tr anslating the A1C assay into estimated average glucose values. ??Diabetes Care 2008:31(8):8269-6815. Specimen Anatomical Collection Method Collection Time Receive d Time (Source) Location / / Volume Laterality Blood specimen 05/04/2012 5:38 AM 012 5:48 (specimen) EDT AM EDT Resulting Agency Comment Spec In Lab Rinku De Jesus MD CHEMISTRY ORDERABLES Performing Organization Address City/State/ZIP [place] [address] ALANNA GIBSON (ABNORMAL) Lipid panel (fasting) (05/04/2012 5:38 AM EDT) P athologist Signature Chol, Total 129 <=199 mg/dL CERNER MILLENNIUM Comment: Recommendations of the NCEP Adult Treatm ent Panel for the following risk cutoff thresholds for the [place] popul[place] n: Desirable: <200 mg/dL Borderline High: 200-239 mg/dL High: > or = 240 mg/dL Triglycerides 98 <=149 mg/dL CERMEGAN MILLENN IUM Comment: Reference Range: Normal triglycerides: ??<150 mg/dL Borderline high: ??150-199 mg/dL High: ??200-499 mg/dL Very high: ??>ui=937 mg/dL MARILUZ 2001; 285(19):1180-7191 HDL 37 (L) >=40 mg/dL CERMEGAN CASTELLANOSMARTHAIUM Comment: Reference range: ??Low HDL: ?? < 40 mg/dL ??Normal: ?40-60 mg/dL ??Desirable: > 60 mg/dL MARILUZ 2001; 285(19):4719-9930 LDL Cholesterol 72 <=99 mg/dL ALANNA MACKENZIE Comment: Reference range: ?? Optimal: ?<100 mg/dL ?? Near Optimal/Above Optimal: ?? 100-1 29 mg/dL ?? Borderline high: ?130-159 mg/dL ?? High: ? 160-189 mg/dL ?? Very high: ?>mo=396 mg/dL MARILUZ 2001: 285(19):0236-4125 Chol/HDL Ratio 3.5 ratio CERNER MILLENNI UM Comment: A Cholesterol to HDL ratio below 4:1 is desirable. ??Studies suggest that increased CAD risk occurs at ratios abov e 5 for females and above 6 for men. ? [place] Heart Association ??(htt p://www.americanheart.org) ? Vera Int Med, 1994; 121:641 ? AM J Med, 1998; 105(1A):48S Specimen Anatomical Collection Method Collection Time Receive d Time (Source) Location / / Volume Laterality Blood specimen 05/04/2012 5:38 AM 012 5:48 (specimen) EDT AM EDT Resulting Agency Comment Spec In Lab Rinku De Jesus MD CHEMISTRY ORDERABLES Performing Organization Address City/[facility]/ZIP [facility] Phon e Number [address] CERNER MILLENNIUM TSH (05/04/2012 5:38 AM EDT) athologist Signature TSH 2.89 0.27 - 4.20 CERNER mcIU/mL [facility] Specimen Anatomical Collection Method Collection Time Receive d Time (Source) Location / / Volume Laterality Blood specimen 05/04/2012 5:38 AM 012 5:48 (specimen) EDT AM EDT Resulting Agency Comment Spec In Lab Rinku De Jesus MD CHEMISTRY ORDERABLES Performing Organization Address City/[facility] Phon e Number [address] CERNER AudioBooENNIUM NUCLEAR STRESS, CARDIOLOGY RESULTS (05/04/2012) Narrative This result has an attachment that is no t available. Rinku De Jesus MD CARD TESTS W/SCANNED RESULTS Cardiac Enzymes (05/03/2012 10:59 PM EDT) athologist Signature Troponin-T <0.03 <=0.03 CERNER ng/mL [facility]CO[facility]PITAL[facility]mar[facility] Comment: 0.03 ng/mL: Represents the 99th percenti le upper reference limit for normals. >0.03 ng/mL: Elevated cardiac troponin T level indicative of myocardial damage. Diagnosis of acute, evolving or recent M I requires a typical rise and gradual fall of cTnT with at least ONE of the fo llowing: a) Ischemic symptoms b) Development of pathologic Q waves on the ECG c) ECG changes indicative of eschemia (S -T segment elevation/depression) d) Coronary artery intervention Serial bloods should be obtained for kaylin ting on admission, at 6 to 9 hrs and again at 12 to 24 hrs if earlier samples are negative and the clinical index of suspicion is high. Reference: [Myocardial infarction redefined a consensus document of the Joint [place] Society of Cardiology/[place] College [employer] Cardiology Committee for the redefinition of myocardial infarction. Journal of the [place] College of Cardi ology 2000; 36: 959-969] CK, Total 88 0 - 200 unit/L FriendFeed[facility] UM Specimen Anatomical Collection Method Collection Time Receive d Time (Source) Location / / Volume Laterality Blood specimen 05/03/2012 10:59 2 (specimen) PM EDT 11:26 PM EDT Resulting Agency Comment Spec In Lab Rinku De Jesus MD CHEMISTRY ORDERABLES Performing Organization Address City/State/[place] [address] [facility] XR CHEST ROUTINE PA & LATERAL (05/03/2012 9:21 PM EDT) Anatomical Region Laterality Modality Chest N/A Radiographic Imaging Specimen (Source) Anatomical Collection Method Collection Time Re ceived Time Location / / Volume Laterality 05/03/2012 9:21 PM EDT Narrative 05/04/2012 10:24 AM EDT Examination CHEST ROUTINE PA+LAT/CORE Clinical History Reason for exam and clinical history: sh ortness of breath, hx of HF; Comparison December 26, 2008. Technique PA and lateral chest. Findings Prominence and cephalization of the pulm onary vasculature indicating mild pulmonary venous hypertension. ??Stable cardiomediastinal silhouette. ??Sternal wires and surgical clips indicating prio r CABG. ??Only minimal blunting of the posterior costophrenic angles due to tra ce effusions. Linear markings posteriorly at the lung bases seen on th e lateral view are most consistent with vascular shadows or mild atelectases. Impression Mildly increased pulmonary venous hypert ension in comparison to the prior exam. Only trace pleural effusion. ??Stable ca rdiomediastinal silhouette with large fat pad paracardial at the left heart morelia rder. Procedure Note Saloni Manning MD - 2011 Examination CHEST ROUTINE PA+LAT/CORE Clinical History Reason for exam and clinical history: sh ortness of breath, hx of HF; Comparison December 26, 2008. Technique PA and lateral chest. Findings Prominence and cephalization of the pulm onary vasculature indicating mild pulmonary venous hypertension. Stable ca rdiomediastinal silhouette. Sternal wires and surgical clips indicating prio r CABG. Only minimal blunting of the posterior costophrenic angles due to tra ce effusions. Linear markings posteriorly at the lung bases seen on th e lateral view are most consistent with vascular shadows or mild atelectases. Impression Mildly increased pulmonary venous hypert ension in comparison to the prior exam. Only trace pleural effusion. Stable card iomediastinal silhouette with large fat pad paracardial at the left heart morelia rder. Rinku De Jesus MD IMG DX ORDERABLES (ABNORMAL) POCT GLUCOSE LAB USE ONLY (05/03/2012 7:50 PM EDT) athologist Signature POC Glucose 242 (H) 60 - 199 [facility]ER mg/dL [facility] Comment: Supplemental ranges: <110 mg/dL before meals <200 mg/dL all other times of the day Specimen Anatomical Collection Method Collection Time Receive d Time (Source) Location / / Volume Laterality Blood specimen 05/03/2012 7:50 PM 012 7:50 (specimen) EDT PM EDT Rinku De Jesus MD POINT OF CARE TEST ORDERABLE S Performing Organization Address City/State/ZIP [place] [address] [facility] MAGNES[facility] (05/03/2012 5:55 PM EDT) athologist Signature Magnesium 0.70 0.69 - 1.07 CERNER mmol/L [facility] Specimen Anatomical Collection Method Collection Time Receive d Time (Source) Location / / Volume Laterality Blood specimen 05/03/2012 5:55 PM 012 5:58 (specimen) EDT PM EDT Resulting Agency Comment Spec In Lab Rinku De Jesus MD CHEMISTRY ORDERABLES Performing Organization Address City/[facility]/ZIP Code Phon e Number [address] CERNER MILLENNIUM (ABNORMAL) PRO-BRAIN NATRIURETIC PEPTIDE (05/03/2012 5:55 PM EDT) P athologist Signature ProBNP 4424 (H) <=125 pg/mL CERNER MILLENNIUM Specimen Anatomical Collection Method Collection Time Receive d Time (Source) Location / / Volume Laterality Blood specimen 05/03/2012 5:55 PM 012 5:58 (specimen) EDT PM EDT Resulting Agency Comment Spec In Lab Rinku De Jesus MD CHEMISTRY ORDERABLES Performing Organization Address City/State/ZIP Code Phon e Number [address] CERNER MILLENNIUM (ABNORMAL) DIFFERENTIAL, AUTOMATED (05/03/2012 5:55 PM EDT) Patholo gist Method Time Signature Neutrophils % 70.8 34.0 - CERNER 71.0 % MILLENNIUM Neutr Abs (ANC) 7.41 (H) 1.50 - CERNER 6.30 MILLENNIUM x10(3)/mc L Lymphocytes % 18.9 (L) 19.0 - CERNER 53.0 % MILLENNIUM Lymphocytes Abs 2.0 1.0 - 3.6 CERNER x10(3)/mc MILLENNIUM L Monocytes % 9.4 4.0 - CERNER 13.0 % MILLENNIUM Monocyte Abs 1.0 0.2 - 1.0 CERNER x10(3)/mc MILLENNIUM L Eosinophils % 0.4 0.0 - 7.0 CERNER % MILLENNIUM Eosinophils Abs 0.0 0.0 - 0.5 CERNER x10(3)/mc MILLENNIUM L Basophils % 0.2 0.0 - 2.0 CERNER % MILLENNIUM Basophils Abs 0.0 0.0 - 0.2 CERNER x10(3)/mc MILLENNIUM L Immature Gran % 0.30 0.00 - CERNER 0.66 % MILLENNIUM Comment: Immature granulocytes(IG's)percentage an d absolute count will include metamyelocytes, myelocytes, and promyelo cytes. Blood smears from CBCs yielding IG's will be scanned manually for concor dance. If this scan disagrees with the automated IG or if promyelocytes are not ed, a manual differential will be performed. Kayla Gran Abs 0.03 0.00 - 0.05 x10(3)/mcL CER NER MILLENNIUM Specimen Anatomical Collection Method Collection Time Receive d Time (Source) Location / / Volume Laterality Blood specimen 05/03/2012 5:55 PM 012 5:58 (specimen) EDT PM EDT Rinku De Jesus MD HEMATOLOGY ORDERABLES Performing Organization Address City/[facility] [place] [address] CERNER [facility] Cardiac Enzymes (05/03/2012 5:55 PM EDT) athologist Signature Troponin-T <0.03 <=0.03 CERNER ng/mL [facility] Comment: 0.03 ng/mL: Represents the 99th percenti le upper reference limit for normals. >0.03 ng/mL: Elevated cardiac troponin T level indicative of myocardial damage. Diagnosis of acute, evolving or recent M I requires a typical rise and gradual fall of cTnT with at least ONE of the fo llowing: a) Ischemic symptoms b) Development of pathologic Q waves on the ECG c) ECG changes indicative of eschemia (S -T segment elevation/depression) d) Coronary artery intervention Serial bloods should be obtained for kaylin ting on admission, at 6 to 9 hrs and again at 12 to 24 hrs if earlier samples are negative and the clinical index of suspicion is high. Reference: [Myocardial infarction redefined a consensus document of the Joint [place] Society of Cardiology/[place] College [employer] Committee for the redefinition of myocardial infarction. Journal of the [place] College of Cardi ology 2000; 36: 959-969] CK, Total 92 0 - 200 unit/L [facility] CRE[facility] UM Specimen Anatomical Collection Method Collection Time Receive d Time (Source) Location / / Volume Laterality Blood specimen 05/03/2012 5:55 PM 012 5:58 (specimen) EDT PM EDT Resulting Agency Comment Spec In Lab Rinku De Jesus MD CHEMISTRY ORDERABLES Performing Organization Address City/[facility]/ZIP [place] [address] CERNER MILLENNIUM APTT (05/03/2012 5:55 PM EDT) P athologist Signature PTT 28 25 - 35 sec CERNER MILLENNIUM Comment: Recommended therapeutic PTT range for fu ll dose unfractionated heparin is 80-114 seconds. Specimen Anatomical Collection Method Collection Time Receive d Time (Source) Location / / Volume Laterality Blood specimen 05/03/2012 5:55 PM 012 5:58 (specimen) EDT PM EDT Resulting Agency Comment Spec In Lab Rinku De Jesus MD HEMATOLOGY ORDERABLES Performing Organization Address City/[facility]/ZIP Code Phon e Number [address] CERNER MILLENNIUM Prothrombin Time (05/03/2012 5:55 PM EDT) P athologist Signature PT 13.9 11.9 - 14.7 CERNER sec MILLENNIUM Comment: [facility] Transfusion Committee Guidelines: I NR less than 2.0, PTT less than OR equal to 43.5 seconds, or Fibrinogen gre ater than or equal to 100 mg/dl indicate adequate procoagulant activity for hemostasis in patients without underlying bleeding disorders. INR 1.1 0.9 - 1.1 CERNER MILLENNIUM Specimen Anatomical Collection Method Collection Time Receive d Time (Source) Location / / Volume Laterality Blood specimen 05/03/2012 5:55 PM 012 5:58 (specimen) EDT PM EDT Resulting Agency Comment Spec In Lab Rinku De Jesus MD HEMATOLOGY ORDERABLES Performing Organization Address City/[facility]/ZIP Code [place] [address] CERNER MILLENNIUM (ABNORMAL) CBC (with Diff) (05/03/2012 5:55 PM EDT) P athologist Signature WBC 10.5 (H) 4.0 - 10.0 CERNER x10(3)/mcL MILLENNIUM RBC 4.57 (L) 4.63 - CERNER 6.08 MILLENNIUM x10(6)/mcL Hemoglobin 12.6 (L) 13.7 - CERNER 17.5 gm/dL MILLENNIUM Hematocrit 38.5 (L) 40.0 - CERNER 51.0 % MILLENNIUM MCV 84.2 79.0 - CERNER 92.0 fL MILLENNIUM MCH 27.6 25.6 - CERNER 32.2 pg MILLENNIUM MCHC 32.7 32.0 - CERNER 36.5 gm/dL MILLENNIUM Platelets 174 145 - 370 CERNER x10(3)/mcL MILLENNIUM RDWSD 42.9 35.0 - CERNER 46.0 fL MILLENNIUM RDWCV 14.2 10.9 - CERNER 14.4 % MILLENNIUM MPV 11.1 9.0 - 12.0 CERNER fL MILLENNIUM Specimen Anatomical Collection Method Collection Time Receive d Time (Source) Location / / Volume Laterality Blood specimen 05/03/2012 5:55 PM 012 5:58 (specimen) EDT PM EDT Resulting Agency Comment Spec In Lab Rinku De Jesus MD HEMATOLOGY ORDERABLES Performing Organization Address City/State/[place] [address] CERNER MILLENNIUM (ABNORMAL) BMP w/fasting Glucose (05/03/2012 5:55 PM EDT) athologist Signature Glucose 85 65 - 99 CERNER Fasting mg/dL MILLENNIUM Comment: ?Fasting* Glucose Interpretive C riteria Normal ?65-99 mg/dL Impaired Fasting glucose ?100-125 mg/dL Consistent with Diabetes Mellitus ? >or= 126 mg/dL *Fasting is defined as no caloric intake for at least 8 hours In the absence of unequivocal hypergly cemia a plasma glucose value of >or= 126 mg/dL should be repeated on a subseq uent day. Diagnosis and Classification of Diabetes Mellitus, Position Statement from the [place] [employer] Association. ??Diabete s Care, Volume 33, Supplement 1, Oct 2009 BUN 11 10 - 20 mg/dL CERNER MILLENNIU M Creatinine 0.69 (L) 0.80 - 1.50 mg/dL CERNER MILL ENNI[facility] Comment: Please note that the pediatric reference intervals supplied above were not validated at [facility]. Results from pediatri c patients should be interpreted in conjunction to the patient's age, height and muscle mass. Sodium 143 135 - 145 mmol/L CERNER KORIN NIUM Potassium 3.2 (L) 3.5 - 5.0 mmol/L CERNER KORIN NIUM Comment: Please note: ??Patients with WBC >100,00 0 may have falsely elevated Potassium levels. ??For accurate Potassium quantif ication in these patients send serum separator tube (gold top) for subsequent determinations. ??Contact the Clinical Chemistry Laboratory if there are any qu estions. Chloride 100 98 - 107 mmol/L CERNER MILLENN IUM CO2 34 (H) 22 - 31 mmol/L CERNER MILLENNI UM Anion Gap 9 5 - 15 mmol/L CERNER MILLENNIU M Calcium 8.3 (L) 8.5 - 10.5 mg/dL CERNER KORIN NIUM Estimated GFR >60 >=60 CERNER MILLENNIU M Comment: The National Kidney Disease Education Pr ogram (NKDEP) has recommended all laboratories report estimated GFR (eGFR) along with plasma creatinine measurements to assist you with recognit ion of early kidney disease. Caveats: ??Plasma creatinine should be a t steady-state (unchanged within the past week). For patient s multiply eGFR by 1.2. The MDRD equation was developed using patients be tween the ages of 18 and 70 years. ?? The MDRD equation has not been validated for patients < 18 years of age and should not be used to assess renal function in the pediatric population. ??The MDRD eGFR equation will also overestimate the true GFR of patients above the age of 70. ??This overestimation is variable bu t increases with age. At present, NKDEP does NOT recommend usi ng the MDRD equation for drug dosing purposes and pharmacists should continue to use their current dosing methods. In addition, numerical eGFR values great er than 60 ml/min/1.73 square meters should be treated as > 60, and not an ex act number due to greater inaccuracies at these higher values. Per NKDEP, they classify normal renal function as any GFR >60ml/min/1.73 square meters; chronic kidney disease wh en GFR <60, and renal failure when GFR <15. ??This calculation may not be valid for patients with atypical muscle mass (very lean or obese), acute renal failur e, and in patients with diabetic kidney disease. References: http://nkdep.nih.gov/resources/NKDEP_Sug gestn4Labs_0606_508.pdf http://www.kidney.org/professionals/kls/ pdf/faq_gfr.pdf Milagro K, Cira NA, Michele AK, Abdiel TS, Manjinder AD, Riki TODD. Relative performance of the MDRD and CKD-EPI equa tions for estimating glomerular filtration rate among patients with vari ed clinical presentations. Clin J Am Soc Nephrol;6:1963-72. Specimen Anatomical Collection Method Collection Time Receive d Time (Source) Location / / Volume Laterality Blood specimen 05/03/2012 5:55 PM 012 5:58 (specimen) EDT PM EDT Resulting Agency Comment Spec In Lab Rinku De Jesus MD CHEMISTRY ORDERABLES Performing Organization Address City/[facility]/ZIP Code Phon e Number [address] [employer] POCT GLUCOSE LAB USE ONLY (05/03/2012 5:04 PM EDT) P athologist Signature POC Glucose 89 60 - 199 CERNER mg/dL [facility] Comment: Supplemental ranges: <110 mg/dL before meals <200 mg/dL all other times of the day Specimen Anatomical Collection Method Collection Time Receive d Time (Source) Location / / Volume Laterality Blood specimen 05/03/2012 5:04 PM 012 5:04 (specimen) EDT PM EDT Rinku De Jesus MD POINT OF CARE TEST ORDERABLE S Performing Organization Address City/[facility]/ZIP [facility] [place] [address] [facility] [employer] EKG 12 Lead (05/03/2012 4:50 PM EDT) Component Value Ref Range Test Analysis Performed Pathologis t Method Time At Signature Ventricular rate 53 BPM MUSE SYSTEM Atrial Rate 53 BPM MUSE SYSTEM P-R Interval 178 ms MUSE SYSTEM QRS Duration 106 ms MUSE SYSTEM Q-T Interval 512 ms MUSE SYSTEM QTC Calculated 480 ms MUSE SYSTEM (Bezet) Calculated P [place] 84 degrees MUSE SYSTEM Calculated R [place] 45 degrees MUSE SYSTEM Calculated T [place] 140 degrees MUSE SYSTEM INTERPRETATION Sinus bradycardia MUSE SY STEM ST & T wave abnormality, consider lateral ischemia Prolonged QT Abnormal ECG Confirmed by MD Matthews Douglas ([id number]) on 05/04/2012 9:14:14 AM Specimen Anatomical Collection Method Collection Time Receive d Time (Source) Location / / Volume Laterality 05/03/2012 4:50 PM 2 9:14 EDT AM EDT Rinku De Jesus MD ECG ORDERABLES Performing Organization Address City/State/ZIP Code Phon e Number MUSE SYSTEM documented in this encounter Visit Diagnoses Diagnosis Shortness of breath - Primary Chest pain Chest pain, unspecified ASCVD (arteriosclerotic cardiovascular d isease) Unspecified cardiovascular disease 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, not stated as uncontrolled Heart failure Heart failure, unspecified Hypertension Unspecified essential hypertension Neuropathic pain Neuralgia, neuritis, and radiculitis, un specified documented in this encounter Administered Medications Inactive Administered Medications - up to 3 most recent administrations Medication Order MAR Action Action Date Dose Rate Site aspirin EC tablet 325 mg Given 05/05/2012 9:20 AM EDT 325 mg 325 mg, Oral, DAILY, First dose on Thu05/04/12 at 0900, Until Discontinued, Routine Given 05/04/2012 8:15 AM EDT 325 mg cloNIDine (CATAPRES) tablet 0.1 mg Given 05/05/2012 9:20 AM EDT 0.1 mg 0.1 mg, Oral, DAILY, First dose on Thu05/04/12 at 0900, Until Discontinued, Routine Given 05/04/2012 8:16 AM EDT 0.1 mg esomeprazole (NEXIUM) capsule 40 mg Given 05/04/2012 9:00 PM EDT 40 mg 40 mg, Oral, NIGHTLY, First dose on Thu05/03/12 at 2100, Until Discontinued, Routine Given 05/03/2012 9:00 PM EDT 40 mg felodipine (PLENDIL) tablet 10 mg Given 05/05/2012 9:20 AM EDT 10 mg 10 mg, Oral, DAILY, First dose (after last reorder) on Thu05/03/12 at 1915, Until Discontinued, Routine Given 05/04/2012 8:17 AM EDT 10 mg Given 05/03/2012 7:15 PM EDT 10 mg furosemide (LASIX) injection 40 mg Given 05/04/2012 10:15 AM EDT 40 mg 40 mg, Intravenous, ONCE, 1 dose, On Thu05/04/12 at 1015, Routine furosemide (LASIX) injection 40 mg Given 05/04/2012 5:21 PM EDT 40 mg 40 mg, Intravenous, ONCE, 1 dose, On Thu05/04/12 at 1700, Routine furosemide (LASIX) tablet 80 mg Given 05/05/2012 9:21 AM EDT 80 mg 80 mg, Oral, DAILY, First dose on Thu05/05/12 at 0930, Until Discontinued, Routine glimepiride (AMARYL) tablet 2 mg Given 05/05/2012 9:21 AM EDT 2 mg 2 mg, Oral, DAILY WITH BREAKFAST, First dose on Thu05/05/12 at 0800, Until Discontinued, Please hold if patient is not eating, Routine insulin aspart (NOVOLOG) PEN injection 2-8 Given 05/05 12:47 PM EDT 4 Units Units 2-8 Units, Subcutaneous, 4 TIMES DAILY BEFORE MEALS & NIGHTLY, First dose on Thu05/03/12 at 2100, Until Discontinued, CORRECTION BOLUS Moderate BG 140 - 160 Give 2 units BG 161 - 200 Give 4 units BG 201 - 240 Give 6 units BG greater than 240, give 8 units every 2 hours until BG less than 240 (no more than three times) & call for new basal insulin orders , Routine Given 05/05/2012 9:24 AM EDT 4 Units Given 05/04/2012 9:00 PM EDT 4 Units insulin glargine (LANTUS) VIAL injection 30 Given 04/25 9:00 PM EDT 30 Units Units 30 Units, Subcutaneous, NIGHTLY, First dose on Thu05/03/12 at 2100, Until Discontinued, Routine Given 05/03/2012 9:00 PM EDT 30 Units losartan (COZAAR) tablet 100 mg Given 05/05/2012 9:22 AM EDT 100 mg 100 mg, Oral, DAILY, First dose (after last reorder) on Thu05/04/12 at 0900, Until Discontinued, Routine Given 05/04/2012 8:18 AM EDT 100 mg methadone (DOLOPHINE) tablet 40 mg Given 05/05/2012 1:49 PM EDT 40 mg 40 mg, Oral, EVERY 8 HOURS SCHEDULED, First dose on Thu05/03/12 at 2200, Until Discontinued, Routine Given 05/05/2012 7:54 AM EDT 20 mg Given 05/05/2012 6:00 AM EDT 20 mg metoprolol (LOPRESSOR) tablet 12.5 mg Given 05/03/2012 9:01 PM EDT 12.5 mg 12.5 mg, Oral, EVERY 6 HOURS SCHEDULED, First dose on Thu05/03/12 at 1845, Until Discontinued, Hold for SBP less than 90 mmHG or HR less than 50 beats per minute, Routine metoprolol (LOPRESSOR) tablet 12.5 mg Given 05/05/2012 9:22 AM EDT 12.5 mg 12.5 mg, Oral, EVERY 12 HOURS SCHEDULED (2 times per day), First dose (after last modification) on Thu05/04/12 at 2100, Until Discontinued, Hold for SBP less than 90 mmHG or HR less than 50 beats per minute, Routine OXYcodone (ROXICODONE) immediate release Given 05/05/2012 1:49 P M EDT 15 mg tablet 15 mg 15 mg, Oral, EVERY 8 HOURS SCHEDULED, First dose on Thu05/03/12 at 2200, Until Discontinued, Routine Given 05/05/2012 6:00 AM EDT 15 mg Given 05/04/2012 10:00 PM EDT 15 mg perflutren protein-A microspheres (OPTISON) Given 05/04/2012 9:0 0 AM EDT 3 mLs 0.22 mg/mL injection 3 mL 3 mL, Intravenous, ONCE PRN, 1 dose, Starting on Thu05/04/12 at 0936, Until Thu05/04/12 at 0900, Per Protocol, for enhancement of sub-optimal echo images, Echo Lab (Intra-Procedure), Routine potassium chloride (K-DUR) tablet 60 mEq Given 05/03/2012 7:45 PM EDT 60 mEq 60 mEq, Oral, ONCE, 1 dose, On Thu05/03/12 at 1945, Routine rosuvastatin (CRESTOR) tablet 5 mg Given 05/04/2012 5:21 PM EDT 5 mg 5 mg, Oral, EVERY EVENING, First dose on Thu05/03/12 at 1845, Until Discontinued, Routine Given 05/03/2012 6:45 PM EDT 5 mg sodium chloride 0.9 % flush 5 mL Given 05/05/2012 5:00 AM EDT 5 mLs 5 mL, Intravenous, EVERY 12 HOURS, First dose on Thu05/03/12 at 1700, Until Discontinued Given 05/04/2012 5:00 PM EDT 5 mLs Given 05/04/2012 5:00 AM EDT 5 mLs documented in this encounter Active and Recently Administered Medications Times are shown in EDT. Scheduled Medication Order 05/03/2012 05/04/2012 05/05/2012 aspirin EC tablet 325 mg (CANCELED) 814 (Given - Provider: Emperatriz Howe RN) 09 (Given - Provider: Emperatriz Howe RN) 325 mg, Oral, DAILY, First dose on Thu at 0900, Until Discontinued, Routine cloNIDine (CATAPRES) tablet 0.1 mg (CANCELED) 815 (Given - Provider: Emperatriz Howe RN) 09 (Given - Provider: Mary Banegas N) 0.1 mg, Oral, DAILY, First dose on Thu at 0900, Until Discontinued, Routine esomeprazole (NEXIUM) capsule 40 mg (CANCELED) 2099 (G iven - Provider: Juliette Rico, LILIANE) 2100 (Given - Provider: Juliette Rico, LILIANE) 40 mg, Oral, NIGHTLY, First dose on Thu05/03/12 at 2100, Until Discontinued, Routine felodipine (PLENDIL) tablet 10 mg (CANCELED) 1914 (Giv en - Provider: Juliette Rico RN) 0817 (Given - Provider: Emperatriz Howe RN) 0920 (Given - Provider: Emperatriz Howe RN) 10 mg, Oral, DAILY, First dose on 07/07 at 1915, Until Discontinued, Routine furosemide (LASIX) injection 40 mg (COMPLETED) 1015 (Given - Provider: Emperatriz Howe RN) 40 mg, Intravenous, ONCE, 1 dose, Thu05/04/12 at 1015, Routine furosemide (LASIX) injection 40 mg (COMPLETED) 1721 (Given - Provider: Emperatriz Howe RN) 40 mg, Intravenous, ONCE, 1 dose, Thu05/04/12 at 1700, Routine furosemide (LASIX) tablet 80 mg (CANCELED) 920 (Given - Provider: Emperatriz Howe RN) 80 mg, Oral, DAILY, First dose on 09/06 at 0930, Until Discontinued, Routine glimepiride (AMARYL) tablet 2 mg 920 (Given - Provider: Emperatriz Howe RN) 2 mg, Oral, DAILY WITH BREAKFAST, First dose on Thu05/05/12 at 0800, Until Discontinued, Please hold if patient is not eating, Routine insulin aspart (NOVOLOG) PEN injection 2-8 Units (CANC ELED) 2099 (Given - Provider: Juliette Rico RN) 0730 (Not Given - Provider: Emperatriz nicholas RN - Reason: NPO)1130 (Not Given - Provider: Emperatriz Howe RN - Reason: Order parameters not met)1630 (Not Given - Provider: Emperatriz Howe RN - Reason: Order parameters not met) 0924 (Given - Provider: Mary Banegas)1247 (Given - Provider: Emperatriz Howe RN) 2-8 Units, Subcutaneous, 4 TIMES DAILY B EFORE MEALS & NIGHTLY, First dose on Thu05/03/12 at 2100, Until Discontinued, CORRECTION BOLUS Moderate BG 140 - 160 Give 2 units BG 161 - 200 Give 4 units 2099 (Given - P rovider: Juliette Rico RN) BG 201 - 240 Give 6 units BG greater th an 240, give 8 units every 2 hours until BG less than 240 (no more than three times) & call for new basal insulin orders , Routine insulin glargine (LANTUS) VIAL injection 30 Units (CAN CELED) 2099 (Given - Provider: Juliette Rico RN) 2099 (Given - Provider: Juliette Rico RN) 30 Units, Subcutaneous, NIGHTLY, First d ose on Thu05/03/12 at 2100, Until Discontinued, Routine losartan (COZAAR) tablet 100 mg (CANCELED) 817 (Given - Provider: Emperatriz Howe RN) 09 (Given - Provider: Mary Banegas) 100 mg, Oral, DAILY, First dose on Thu at 0900, Until Discontinued, Routine methadone (DOLOPHINE) tablet 40 mg (CANCELED) 2200 (Gi sirena - Provider: Juliette Rico RN) 0600 (Given - Provider: Juliette lopez RN)1524 (Given - Provider: Emperatriz Howe RN)2200 (Given - Provider: Juliette Rico RN) 0600 (Given - Provider: Juliette Rico RN - Comment: only 20 mg available to give.)0754 (Given - Provider: Emperatriz Howe RN - Comment: partial dose given at 6 am, med not available)1349 (Given - Provider: Emperatriz Howe RN) 40 mg, Oral, EVERY 8 HOURS SCHEDULED, Fi rst dose on Thu05/03/12 at 2200, Until Discontinued, Routine metoprolol (LOPRESSOR) tablet 12.5 mg (CANCELED) 2100 (Given - Provider: Juliette Rico RN) 0000 (Not Given - Provider: Juliette vázquez RN - Reason: See comment - Comment: HR < 50.)0600 (Not Given - Provider: Juliette Rico RN - Reason: Order parameters not met - Comment: HR 43 at 0530) 12.5 mg, Oral, EVERY 6 HOURS SCHEDULED, First dose on Thu05/03/12 at 1845, Until Discontinued, Hold for SBP less than 90 mmHG or HR less than 50 beats per minute, Routine metoprolol (LOPRESSOR) tablet 12.5 mg (CANCELED) 2100 (Not Given - Provider: Juliette Rico RN - Reason: See comment - Comment: HR 48) 0922 (Given - Provider: Emperatriz Howe RN - Comment: Heart rate 60's on telemetry) 12.5 mg, Oral, EVERY 12 HOURS SCHEDULED (2 times per day), First dose on Thu05/04/12 at 2100, Until Discontinued, Hold for SBP less than 90 mmHG or HR less than 50 beats per minute, Routine OXYcodone (ROXICODONE) immediate release tablet 15 mg (CANCELED) 2200 (Given - Provider: Juliette Rico RN) 0600 (Given - Provider: Juliette lopez RN)1524 (Given - Provider: Emperatriz Howe RN - Comment: bilateral feet)2200 (Given - Provider: Juliette Rico RN) 0600 (Given - Provider: Jluiette Rico RN)1349 (Given - Provider: Emperatriz Howe RN - Comment: bilateral foot pain) 15 mg, Oral, EVERY 8 HOURS SCHEDULED, Fi rst dose on Thu05/03/12 at 2200, Until Discontinued, Routine potassium chloride (K-DUR) tablet 60 mEq (COMPLETED) 1 945 (Given - Provider: Juliette Rico RN) 60 mEq, Oral, ONCE, 1 dose, Thu05/03/12 at 1945, Routine rosuvastatin (CRESTOR) tablet 5 mg 1845 (Given - Provi minh: Juliette Rico RN) 1721 (Given - Provider: Emperatriz Howe RN) 5 mg, Oral, EVERY EVENING, First dose on Thu05/03/12 at 1845, Until Discontinued, Routine sodium chloride 0.9 % flush 5 mL (CANCELED) 1700 (Give n - Provider: Sally Alba RN) 0500 (Given - Provider: Juliette lopez RN)1700 (Given - Provider: Emperatriz Howe RN) 0500 (Given - Provider: Juliette lopez RN) 5 mL, Intravenous, EVERY 12 HOURS, First dose on Thu05/03/12 at 1700, Until Discontinued, Routine PRN Medication Order 05/03/2012 05/04/2012 05/05/2012 nitroGLYcerin (NITROSTAT) SL tablet 0.4 mg 0.4 mg, Sublingual, EVERY 5 MIN PRN, Sta rting Thu05/03/12 at 1812, Until Thu05/05/12 at 1845, Chest pain, May repeat every 5 minutes for a total of three doses. Notify provider if chest pain not relieved with nitroglycerin. Do not administer n itroglycerin if the patinet has received or taken phosphodiesterase (PDE-5) inhibitors such as sildenafil, tadalafil or vardenafil within the last 24 to 72 hours., Routine perflutren protein-A microspheres (OPTIS ON) 0.22 mg/mL injection 3 mL (COMPLETED) 0900 (Given - Provider: Zoie wilkinson) 3 mL, Intravenous, ONCE PRN, 1 dose, Sta rting Thu05/04/12 at 0936, Until Thu05/04/12 at 0900, Per Protocol, for enhancement of sub-optimal echo images, Echo Lab (Intra-Procedure), Routine documented in this encounter Care Teams Cylinder Handler Relationship Specialty Start Date End Date Nancy Moore MD PCP - General 09/17/10 05/05/[address] [place] [address] documented as of this encounter
--- OUTSIDE RECORDS SUMMARY | 2022-06-15 00:22 | XMS_ITS | Encounter Summary ---
:1945 Author Organization [facility] [place] [address] Care Team Providers Name Role Phone Edil Schmidt APRN Primary Care Provider Encounter Details Date Type Department Care Team Description 09/07/2017 External Results Administration Missy Segovia MD [facility] [address] [place] [id number] [place], [place] [phone] (Wo rk) Social History Tobacco Use Types [...] Date/Time Associated Diagnosis Comme nts ECG SCAN Routine 09/07/2017 ECG SCAN Routine 09/07/2017 documented in this encounter Results Scan Doc: ECG (09/07/2017) Narrative This result has an attachment that is no t available. Missy Segovia MD MEDIA MGR SCAN EXT ORDR/RSLT Scan Doc: ECG (09/07/2017) Narrative This result has an attachment that is no t available. Missy Segovia MD MEDIA MGR SCAN EXT ORDR/RSLT documented in this encounter Visit Diagnoses Not on filedocumented in this encounter Care Teams Dental Therapist Relationship Specialty Start Date End Date Edil Schmidt APRN PCP - General 05/06/12 EMERGENCY DEPT [address] [place] [address] [place] [address] documented as of this encounter
--- OUTSIDE RECORDS SUMMARY | 2022-06-15 00:22 | XMS_ITS | Encounter Summary ---
:1945 Author Organization [facility] [place] [address] Care Team Providers Name Role Phone Papito Moore MD Primary Care Provider [phone] Reason for Visit Reason Comments Pain In Limb Encounter Details Date Type Department Care Team Description 12/17/2011 Follow-Up [facility] Management at [facility] ropathic pain Juana Gary MD (Primary Dx) [facility] [place] [address] [facility] [phone] [place], [place] [address] (Wo rk) Social History Tobacco Use Types Packs/Day Years Used Date Former Smoker Sex Assigned at Date Recorded Not on file documented as of this encounter Last Filed Vital Signs Vital Sign Reading Time Taken Comments Blood Pressure 147/64 12/17/2011 2:03 PM EST Pulse 53 12/17/2011 2:03 PM EST Temperature - - Respiratory Rate - - Oxygen Saturation 96% 12/17/2011 2:03 PM EST Inhaled Oxygen Concentration - - Weight - - Height - - Body Mass Index - - documented in this encounter Progress Notes [facility] Ramirez MD - 12/17/2011 2:26 PM EST Mr. Jiménez presents today to determine if I have any other suggestions for him in trying to deal with his chronic neuropathic pain notably peripheral neuropathy, secondary to diabetes mellitus manifested by severe pain in his feet. He has tried virtually everything that I think of ,Dr. Moore has skillfully done opioid rotations, trialed him with gabapentin, pregabalin, lamotrigine, tricyclic antidepressants, and fluoxetine without any real usefulness. 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 He states that he can walk up and down the stairs. He can walk to the hospital here from his car. His pain on average is a 6 or 8 on 0 to 10 on verbal numerical scale and it has worst over the course of last two weeks, it was 10 and at least it is a 4. He has been having episodes of depression. Currently, his only antidepressant is trazodone. We discussed briefly once again a trial of possible implantation of his spinal cord stimulating device and we discussed the fact that his methadone dose is on the high side. The final conclusion; however, is that he seems to be functioning as well as possible with his current dose of methadone. He has objective evidence of a painful disorder without any risk factors and I think it is completely appropriate for him to continue on his current dose of methadone. Dr. Moore recently had increased them up to 50 mg three times a day, but has been back down to 40 mg three times a day. Mr. Jiménez knows that if he goes below this dose his pain is much worse. All in all I think that he has optimally managed and other than a trial of possible implantation of a spinal cord stimulating device I have nothing else to offer. It is his decision in a prudent one to decline the spinal cord stimulator at this time is risk of infection because of his diabetes would likely be much higher than the average patients. I am not scheduling him for a followup visit. We will be happy to see him again at any time. Thanks so much, Rod, for sending him in my way once again. I spent 25 minutes with Mr Jiménez, 20 of which was spent with my reviewing risks and benefits of treatment options. documented in this encounter Plan of Treatment Not on filedocumented as of this encounter Visit Diagnoses Diagnosis Neuropathic pain - Primary Neuralgia, neuritis, and radiculitis, un specified documented in this encounter Care Teams Gold Blower Relationship Specialty Start Date End Date Papito Moore MD PCP - General 09/17/10 05/05/[address] [place] [address] documented as of this encounter
--- OUTSIDE RECORDS SUMMARY | 2022-06-15 00:22 | XMS_ITS | Encounter Summary ---
:1945 Author Organization [facility] Address [facility] [place] [address] Care Team Providers Name Role Phone Edil Schmidt APRN Primary Care Provider Reason for Visit Auth/Cert Specialty Diagnoses / Procedures Referred By Contact Refer red To Contact Diagnoses Heart failure CHF/new cardiomyopathy/ abnormal Lexiscan stress Procedures TAMMY IPI Referral ID Status Reason Start Date Expiration Date Visits Requ ested Visits Authorized [id number] 1 1 Encounter Details Date Type Department Care Team Description 09/14/2017 Surgery Supervisor Decorating Jazmin Lou MD CARDIAC CATHETERIZATION Formerly [facility] [place] [address] [place] [address] [phone] Social History Tobacco Use Types Packs/Day Years [...] in this encounter Discharge Summaries Margret Sullivan H - 09/15/2017 10:47 AM EST Cardiology - [...] patient presented with: non-STEMI (w/i 7 days). [place] [employer] angina class was IV. This [...] dose administered prior to arrival in the laboratory geneticist. ? Recommend continuing clopidogrel 75 mg PO [...] COPD and DM who presented initially to [facility] with chief complaint of shortness of breath [...] called an ambulance and was admitted to [facility]. At baseline required only nightly 2.5L o2 [...] ? He was admitted on 09/07 at [facility] and treated initially for ACS given elevated trop in context of dyspnea (trop peaked at 0.15). A stress test was notable for a fixed defect only. He was being prepared for discharge when this morning he tried going to bathroom this morning at [facility] and was markedly dyspneic. For this reason he and his providers at [facility] Other notable labs Cr 1.5, WBC 12, [...] first stent, additional stent placed. --??Heart catheterization, [facility], May 06, 2003: ?20% distal LM, mild [...] 50 mg Refills: 0 nitroGLYcerin 400 mcg/spray [place] Commonly known as: NITROLINGUAL Place 1 spray [...] future appointments. 1pm 10/05 Keyonna Bland At [facility] cardiology Clinic Your Inpatient Doctor: Karyn Soliz MD Your Primary Care Provider: Edil Schmidt, COMPONENT OVERHAUL OPERATOR [phone] For questions regarding this document or issues relating to this hospitalization on the Medical Service, please contact your inpatient physician through the [facility] Program Trainer . Issues after hours and on weekends will be handled by the Hospitalist staff on-call. For questions regarding this document or issues relating to this hospitalization on the Medical Service, please contact your inpatient physician through the [facility] Program Trainer . Issues after hours and on weekends will be handled by the Hospitality Workers staff on-call. Signed: Margret Sullivan MD documented [...] future appointments. 1pm 10/05 Keyonna Bland At [facility] cardiology Clinic Your Inpatient Doctor: Karyn Soliz MD Your Primary Care Provider: Edil Draper Brayan, COMPONENT OVERHAUL OPERATOR [phone] For questions regarding this document or issues relating to this hospitalization on the Medical Service, please contact your inpatient physician through the [facility] Program Trainer . Issues after hours and on weekends [...] (NITROLINGUAL) 400 the tongue every 5 mcg/spray [place], minutes as needed Non-Aerosol for Chest pain. [...] and , belongings sent with patient. Karyn Wilson MD - 09/15/2017 1:10 PM EST CARDIOLOGY [...] diurese and will plan a coronary evaluation Danilo. He responded well to torsemide, decreased to [...] [facility]. Code Status: Full Summary for Today Discharge today Margret Sullivan MD M1-S2, 3349 09/15/17 STAFF ADDENDUM Patient interviewed and examined. [...] 6:48 AM EST Cardiac/Telemetry Nursing Progress Note [id number] Subjective: I'm feeling much better Objective: No complaints of SOB or chest pain Vital Signs: See Vital signs below Cardiac Meds: See online MAR Labs: See labs in online chart. Assessment: HR 50-80 SB/ SR Rate down to 47 non sust Rare PVCs VT 0.20 QRS 0.11 RR 0.95 QTc 0.47 [...] 96 % SpO2: [92 %-96 %] Elisa Nguyễn - 09/15/2017 1:53 AM EST Post-Catheterization Progress [...] Dressing removed without oozing and redressed. Elisa Bautista DO PGY 2 - Internal Medicine Pager [phone] 09/15/2017 Zachery Lopez RN - 09/14/2017 7:13 PM EST 1900: Pt arrived to bed 442B from laboratory geneticist recovery, awake, alert, OX4, (-) right groin site, VSS. IV infusing at 100cc/hr. Denies pain or discomfort. Eating dinner at present, family with patient. Karyn Soliz MD - 09/14/2017 8:00 AM EST CARDIOLOGY [...] Today Cath today Margret Sullivan MD M1-S2, 1302 09/14/17 STAFF ADDENDUM Patient interviewed and examined. [...] midnight for cath Margret Sullivan MD M1-S2, 5761 09/13/17 STAFF ADDENDUM Patient interviewed and examined. [...] kg Pertinent Labs Recent Labs 09/12/17 0602 09/10/170 WBC 9.8* 13.1* HGB 12.6* 12.2* PLATELET 187 184 Recent Labs 09/12/17 0602 09/11/17 0505 09/10/17 2110 NA 139 140 140 K 3.8 4.1 4.6 CL 97* 99 101 CO2 26 Not Perf 27 BUN 39* 33* 35* CREATININE 1.49 1.52* 1.53* Recent Labs 09/12/17 0602 09/11/17 0505 09/10/17 2110 CALCIUM 8.9 9.2 9.4 MAGNESIUM 0.88 -- [...] ACS treatment Michael Terry PGY-3 S2 Pager [phone] STAFF ADDENDUM Patient interviewed and examined. Medical [...] given his depressed EF of 35%. Jacy Samuels RN - 09/11/2017 11:45 PM EST Patient [...] pt eats a lot of frozen meals. Dental Assistant Teacher informed pt/ family how many milligrams of [...] and spices to incorporate flavor in foods. Dental Assistant Teacher provided extra pepper and Mrs. Torres to [...] consulted in the interim. CHERYL Reed Karyn Soliz MD - 09/11/2017 11:23 AM EST Inpatient Cardiology Progress Note Admission Date: 09/10/2017 Covering Team: S2, Pager #[phone] Problem List: Active Hospital Problems Heart failure [...] Extremities: Trace lower extremity edema bilaterally Neuro: contracting analyst II-XII intact, strength grossly intact bilaterally in [...] 182 195 No results for input(s): PHART, QVO9LXA, PO2ART, JGS4GQN in the last 168 hours. No results [...] a chief complaintof shortness of breath. At [facility] he effectively ruled out for ACS with [...] today - Monitor creatinine Margret Sullivan MD, #[id number] PGY1 Internal Medicine 09/11/2017 Cardiology S2 Team, Pager #[phone] STAFF ADDENDUM Patient interviewed and examined. Medical [...] COPD and DM who presented initially to [facility] with chief complaint of shortness of breath [...] called an ambulance and was admitted to [facility]. At baseline required only nightly 2.5L o2 [...] past. He was admitted on 09/07 at [facility] and treated initially for ACS given elevated trop in context of dyspnea (trop peaked at 0.15). A stress test was notable for a fixed defect only. He was being prepared for discharge when this morning he tried going to bathroom this morning at [facility] and was markedly dyspneic. For this reason he and his providers at [facility] Other notable labs Cr 1.5, WBC 12, [...] stent, additional stent placed. 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 Smoking status: Former Smoker Quit date: 10/26/1991 ??? Smokeless tobacco: Not on file ??? Alcohol use No ??? Drug use: Not on file ??? Sexual activity: Not on file Other Topics Concern ??? Not on file Social History Narrative Lives with in [place], [place]. Has [facility] services as he is 100% connected due to [employer]. Worked for the [employer] in the past. Family History: Family History [...] mouth daily. ??? nitroGLYcerin (NITROLINGUAL) 400 mcg/spray [place], Non-Aerosol Place 1 spray under the tongue [...] Extremities: Trace lower extremity edema bilaterally Neuro: contracting analyst II-XII intact, strength grossly intact bilaterally in [...] x10(3)/mcL Imaging/Diagnostics: NM stress test performed at [facility] on 09/09/17 showed large fixed defect in the apical inferior, inferolateral, and apical dempsey. TTE at [facility] showed LVEF 40-45% with diffuse hypokinesis, moderate AR, TR, and MR; pasp 40 CXR on admission without acute ischemic changes. ASSESSMENT and PLAN: Darren Valentine is a 72 y.o. male with prior CABG, COPD, HTN, and DM admitted with a chief complaintof shortness of breath. At [facility] he effectively ruled out for ACS with [...] in the outpatient cardiac rehabilitation program at [facility] was discussed. Patient agrees to a referral [...] Intervention: Gradually Correct Positive Fluid Balance 09/13/17195109/14/17224309/15/17 0539 Positioning Body Position -- -- independent Skin [...] Coronary Syndrome) (Adult) Intervention: Optimize Myocardial Oxygenation/Perfusion 09/15/1753809/15/17 0540 Respiratory Interventions Airway/Ventilation Management -- airway [...] encouraged -- -- Intervention: Monitor/Manage Fluid Balance 09/13/1781409/15/17 0539 Safety Interventions Medication Review/Management -- medications [...] Review Outcome: Ongoing (Interventions Implemented as Appropriate) 09/13/17183709/13/171951 Plan of Care Review Progress progress [...] Conf Outcome: Ongoing (Interventions Implemented as Appropriate) 11/19/17 1838 Interdisciplinary Rounds/Family Conf Participants patient Problem: Cardiac: [...] per protocol. Pre cath fluids confirmed with . Cynthia NC overnight while asleep. SB/SR on tele, [...] Overview Goal: Plan of Care Review 09/13/17 5336 Plan of Care Review Progress progress toward [...] plan moving forward is to go to laboratory geneticist in the am and he plans to [...] assist with ADLs. Surveillance [continuous indirect monitoring]: tisha Laboy knowledge exchange, purposeful rounding. Patient has history [...] CPG GOAL OUTCOME EVALUATION: Goal: Infection Control 09/13/171837 Safety Interventions Isolation Precautions standard precautions maintained [...] CPG). Outcome: Ongoing (Interventions Implemented as Appropriate) 09/13/171837 Cardiac: Heart Failure Problems Assessed (Heart Failure) all Problems Present (Heart Failure) dysrhythmia/arrhythmia;fluid/electrolyte imbalance;respiratory compromise;sleep-disordered breathing Plan of Care - Cherry Nguyễn RN - 09/13/2017 3:04 AM EST Problem: Patient Care Overview Goal: Plan of Care Review 09/11/175709/12/171942 Plan of Care Review Progress progress toward [...] care (reference Cardiac: Heart Failure (Adult) CPG). 09/11/1757 Cardiac: Heart Failure Problems Assessed (Heart [...] Admission: indepedent Home Environment: Lives with in [place], [place] Social & Family Supports/Community Resources: 4 adult step children. All live nearby and are supportive Behavioral Health History: none Substance Use/Abuse: n/a Other Pertinent/Service Specific Information: Has O2 at home. Health/Prescription Coverage: Primary Insurance: [employer] Secondary Insurance: MEDICARE Prescription Coverage: yes [facility] Other: [facility] Primary Care Provider: Edil Schmidt, COMPONENT OVERHAUL OPERATOR [phone] Patient/Caregiver Goals of Treatment: home when stable [...] transition of care planning. ELZBIETA Cardona Pager: [phone] Plan of Care - Jacy Samuels RN - 09/11/2017 2:12 AM EST Problem: Patient Care Overview Goal: Plan of Care Review Outcome: Ongoing (Interventions Implemented as Appropriate) 09/10/17211409/11/17 0058 Plan of Care Review Progress -- [...] Control Outcome: Ongoing (Interventions Implemented as Appropriate) 09/10/175 Safety Interventions Isolation Precautions standard precautions maintained [...] Name Priority Date/Time Associated Diagnosis Comme nts COTTON GIN YARD SUPERVISOR SCAN 09/16/2017 12:00 Res ults for this [...] Timed 09/14/2017 8:34 Results f or this ([facility]/CGP) PM EST procedure are i n the [...] Routine 09/12/2017 1:34 Results f or this ([facility]/CGP) PM EST procedure are i n the [...] Routine 09/12/2017 6:02 Results f or this ([facility]/CG) AM EST procedure are i n the [...] ENZYMES Routine 09/12/2017 12:20 Results for this ([facility]/CG) AM EST procedure are i n the [...] Routine 09/11/2017 4:53 Results f or this ([facility] PM EST procedure are i n the [...] ENZYMES Routine 09/11/2017 10:46 Results for this ([facility]/CGP) AM EST procedure are i n the results section. POCT GLUCOSE Routine 09/11/2017 7:32 Results for this AM EST procedure are i n the results section. LAVENDER TUBE HOLD Routine 09/11/2017 5:05 Result s for this AM EST procedure are i n the results section. CARDIAC ENZYMES Routine 09/11/2017 5:05 Results f or this ([facility]/CG) AM EST procedure are i n the [...] Routine 09/10/2017 9:10 Results f or this ([facility]/CGP) PM EST procedure are i n the [...] documented in this encounter Results SCAN DOC: COTTON GIN YARD SUPERVISOR (09/16/2017 12:00 AM EST) Narrative 09/16/2017 12:00 AM EST This result has an attachment that is no t available. Ordered by an unspecified provider. Scanning Provider MEDIA MGR SCAN EXT ORDR/RSLT POCT Glucose (09/15/2017 12:18 PM EST) athologist Signature POC Glucose 182 65 - 199 [place] mg/dL [facility] Comment: Supplemental ranges: <140 mg/dL before meals <180 mg/dL all other times of the day Specimen Anatomical Collection Method Collection Time Receive d Time (Source) Location / / Volume Laterality Blood specimen 09/15/2017 12:18 7 (specimen) PM EST 12:18 PM EST Karyn Soliz MD POINT OF CARE TEST ORDERABLE S Performing Organization Address City/State/ZIP Code Phon e Number [address] POCT Glucose (09/15/2017 11:30 AM EST) athologist Signature POC Glucose 187 65 - 199 [place] mg/dL [facility] Comment: Supplemental ranges: <140 mg/dL before meals <180 mg/dL all other times of the day Specimen Anatomical Collection Method Collection Time Receive d Time (Source) Location / / Volume Laterality Blood specimen 09/15/2017 11:30 7 (specimen) AM EST 11:30 AM EST Karyn Soliz MD POINT OF CARE TEST ORDERABLE S Performing Organization Address City/State/ZIP Code Phon e Number [address] POCT Glucose (09/15/2017 6:56 AM EST) athologist Signature POC Glucose 102 65 - 199 [facility] mg/dL [facility] Comment: Supplemental ranges: <140 mg/dL before meals <180 mg/dL all other times of the day Specimen Anatomical Collection Method Collection Time Receive d Time (Source) Location / / Volume Laterality Blood specimen 09/15/2017 6:56 AM 017 6:56 (specimen) EST AM EST Karyn Soliz MD POINT OF CARE TEST ORDERABLE S Performing Organization Address City/State/ZIP [place] [address] (ABNORMAL) Differential, Automated (09/15/2017 5:31 AM EST) [facility] Method Time Signature Neutrophils % 75.0 % [facility] Neutr Abs (ANC) 7.96 (H) 1.70 - [facility] 6.10 [facility] x10(3)/[facility] LABORATORY Lymphocytes % 11.3 % [facility] Lymphocytes Abs 1.2 0.9 - 3.2 [facility] x10(3)/[facility] LABORATORY Monocytes % 11.3 % [facility] Monocyte Abs 1.2 (H) 0.3 - 0.9 [facility] x10(3)/[facility] LABORATORY Eosinophils % 1.4 % [facility] Eosinophils Abs 0.2 0.0 - 0.4 [facility] x10(3)/[facility] LABORATORY Basophils % 0.6 % [facility] Basophils Abs 0.1 0.0 - 0.1 [facility] x10(3)/[facility] LABORATORY Immature Gran % 0.40 % [facility] Comment: Immature granulocytes(IG's)percentage an d absolute count will include metamyelocytes, myelocytes, and promyelo cytes. Blood smears from CBCs yielding IG's will be scanned manually for concor dance. If this scan disagrees with the automated IG or if promyelocytes are not ed, a manual differential will be performed. Kayla Gran Abs 0.04 0.00 - 0.04 x10(3)/[facility] LABORATORY Specimen Anatomical Collection Method Collection Time Receive d Time (Source) Location / / Volume Laterality Blood specimen 09/15/2017 5:31 AM 017 5:45 (specimen) EST AM EST Resulting Agency Comment Spec In Lab Duke Olivier MD HEMATOLOGY ORDERABLES Performing Organization Address City/State/ZIP Code Phon e Number [place] [id number] (ABNORMAL) Hemogram (09/15/2017 5:31 AM EST) Analysis Performed At Patho logist Time Signature WBC 10.6 (H) 4.0 - 9.5 [facility](3[facility] LABORATORY RBC 4.31 (L) 4.58 - [place] 5.54 [facility] x10(6)/[facility] LABORATORY Hemoglobin 12.0 (L) 13.7 - [facility] 16.5 gm/dL [facility] Hematocrit 38.7 (L) 40.5 - [facility] 48.5 % [facility] MCV 89.8 82.9 [facility] 93.1 [facility] LABORATORY MCH 27.8 27.5 [facility] 32.[address] [facility] MCHC 31.0 (L) 32.0 - [facility] 35.7 gm/dL [facility] Platelets 201 145 - 357 [facility] x10(3)/[facility] LABORATORY RDWSD 47.9 (H) 36.0 - [facility] 45.0 [facility] LABORATORY RDWCV 14.6 (H) 11.4 - [facility] 13.8 % [facility] MPV 10.3 7.6 - 12.9 [facility] LABORATORY nRBC % Auto 0.0 % [facility] nRBC Abs Auto 0.000 0.000 - [facility] 0.000 [facility] x10(3)/[facility] LABORATORY Specimen Anatomical Collection Method Collection Time Receive d Time (Source) Location / / Volume Laterality Blood specimen 09/15/2017 5:31 AM 017 5:45 (specimen) EST AM EST Resulting Agency Comment Spec In Lab Duke Olivier MD HEMATOLOGY ORDERABLES Performing Organization Address City/State/ZIP [place] [address] Magnesium (09/15/2017 5:31 AM EST) P athologist Signature Magnesium 0.88 0.69 - 1.07 [facility] mmol/L [facility] Specimen Anatomical Collection Method Collection Time Receive d Time (Source) Location / / Volume Laterality Blood specimen 09/15/2017 5:31 AM 017 5:45 (specimen) EST AM EST Resulting Agency Comment Spec In Lab Duke Olivier MD CHEMISTRY ORDERABLES Performing Organization Address City/State/ZIP [place] [address] (ABNORMAL) Basic Metabolic Panel (non-fasting) (09/15/2017 5:31 AM EST) athologist Signature Glucose Lvl 86 65 - 199 [facility] mg/dL [facility] Comment: Diabetes: >=200 mg/dL plus symp toms BUN 38 (H) 10 - 20 mg/dL [facility] Creatinine 1.63 (H) 0.80 - 1.50 mg/dL [facility] Sodium 142 135 - 145 mmol/L [facility] Potassium 3.7 3.5 - 5.0 mmol/L [facility] Comment: Please note: ??Patients with WBC >100,00 0 may have falsely elevated Potassium levels. ??For accurate Potassium quantif ication in these patients send serum separator tube (gold top) for subsequent determinations. ??Contact the Clinical Chemistry Laboratory if there are any qu estions. Chloride 102 98 - 107 mmol/L [facility] CO2 26 22 - 31 mmol/L [facility] Anion Gap 14 5 - 15 mmol/L [facility] Calcium 8.7 8.5 - 10.5 mg/dL [facility] Estimated GFR 42 (L) >=60 [facility] Comment: The reported eGFR should be multiplied b y 1.2 for patients. The MDRD is not an appropriate measure o f renal function for patients with body mass extremes or in patients with acute kidney failure. http://Memetales/DHnkdep http://Memetales/DHMCnkf Specimen Anatomical Collection Method Collection Time Receive d Time (Source) Location / / Volume Laterality Blood specimen 09/15/2017 5:31 AM 017 5:45 (specimen) EST AM EST Resulting Agency Comment Spec In Lab Duke Olivier MD CHEMISTRY ORDERABLES Performing Organization Address City/State/[place] [address] POCT Glucose (09/15/2017 4:07 AM EST) athologist Signature POC Glucose 78 65 - 199 [place] mg/dL [facility] Comment: Supplemental ranges: <140 mg/dL before meals <180 mg/dL all other times of the day Specimen Anatomical Collection Method Collection Time Receive d Time (Source) Location / / Volume Laterality Blood specimen 09/15/2017 4:07 AM 017 4:07 (specimen) EST AM EST Karyn Soliz MD POINT OF CARE TEST ORDERABLE S Performing Organization Address City/[facility]/[place] [address] (ABNORMAL) POCT Glucose (09/15/2017 12:00 AM EST) athologist Signature POC Glucose 201 (H) 65 - 199 [facility] mg/dL [facility] Comment: Supplemental ranges: <140 mg/dL before meals <180 mg/dL all other times of the day Specimen (Source) Anatomical Collection Method Collection Time Re ceived Time Location / / Volume Laterality Blood specimen 09/15/2017 09/15/2017 12 :00 (specimen) AM EST Karyn Soliz MD POINT OF CARE TEST ORDERABLE S Performing Organization Address City/State/[place] [address] (ABNORMAL) Cardiac Enzymes (LEB/CGP) (09/14/2017 8:34 PM EST) athologist Signature Troponin-T 0.03 (H) 0.00 - [place] 0.00 ng/mL [facility] Comment: The 99th percentile for Troponin T is le ss than 0.01 ng/mL, any detectable cTnT concentration using this assay should be considered elevated. According to the third universal definit ion of myocardial infarction the following criteria with a clinical prese ntation consistent with acute myocardial ischemia meets the diagnosis for a myocardial infarction (SC). Detection of a rise and/or fall of [...] additional sample may be indicated. Reference: Third [place] Definition of Myocardial Infarction. Journal of the [place] College [employer] 2012;60:1581-98 CK, Total 88 0 - 200 unit/L [facility] Specimen Anatomical Collection Method Collection Time Receive d Time (Source) Location / / Volume Laterality Blood specimen 09/14/2017 8:34 PM 017 8:44 (specimen) EST PM EST Resulting Agency Comment Spec In Lab Karyn Soliz MD CHEMISTRY ORDERABLES Performing Organization Address City/[facility]/[place] [address] POCT Glucose (09/14/2017 8:22 PM EST) P athologist Signature POC Glucose 190 65 - 199 [facility] mg/dL [facility] Comment: Supplemental ranges: <140 mg/dL before meals <180 mg/dL all other times of the day Specimen Anatomical Collection Method Collection Time Receive d Time (Source) Location / / Volume Laterality Blood specimen 09/14/2017 8:22 PM 017 8:22 (specimen) EST PM EST Karyn Soliz MD POINT OF CARE TEST ORDERABLE S Performing Organization Address City/[facility]/[place] [address] EKG 12 Lead (09/14/2017 5:44 PM EST) Component Value Ref Range Test Analysis Performed Pathologis t Method Time At Signature Ventricular rate 62 BPM MUSE SYSTEM Atrial Rate 62 BPM MUSE SYSTEM P-R Interval 160 ms MUSE SYSTEM QRS Duration 98 ms MUSE SYSTEM Q-T Interval 508 ms MUSE SYSTEM QTC Calculated 515 ms MUSE SYSTEM (Bezet) Calculated P [place] -5 degrees MUSE SYSTEM Calculated R [place] 50 degrees MUSE SYSTEM Calculated T [place] 49 degrees MUSE SYSTEM INTERPRETATION Normal sinus [...] Bruno MD ECG ORDERABLES Performing Organization Address City/State/ZIP Code Phon e Number MUSE SYSTEM POCT Glucose (09/14/2017 5:29 PM EST) P athologist Signature POC Glucose 116 65 - 199 [facility] mg/dL [facility] Comment: Supplemental ranges: <140 mg/dL before meals <180 mg/dL all other times of the day Specimen Anatomical Collection Method Collection Time Receive d Time (Source) Location / / Volume Laterality Blood specimen 09/14/2017 5:29 PM 017 5:29 (specimen) EST PM EST Karyn Soliz MD POINT OF CARE TEST ORDERABLE S Performing Organization Address City/State/ZIP Code Phon e Number [place] [phone] CARDIAC CATHETERIZATION (09/14/2017 5:10 PM EST) Specimen (Source) Anatomical Location Collection Method / Collectio n Time Received Time / Laterality Volume Narrative CARDIOMAC SYSTEM - 09/14/2017 5:33 PM ES T ?[facility] ? Cardiac Cathete rization/Intervention Report ? Patient Name: [place], Darren M. ? Procedure Date: 09/14/2017 ? A #: [id number] ? Primary Physician: Damion, Mariana ? Case #: [id number] ? File Name: [id number] ? Catheterization Order Number: [id number] ? [facility] ?[facility]visor [facility] ? Final Report [place], [place] ? Patient Name: ? Darren M. Whitti er ? ID#: ?[id number] ? : ?1945 ? Procedure Date: ? November 20, 20 17 ?Case #: ? [id number] ? Room: ? 5 ? Case Physician: [...] He has ?sequelae from diabetes. The pat ient has a prior history of coronary ?artery [...] presented with: non -STEMI (w/i 7 days). [place] ?Cardiovascular Society angina c lass was IV. [...] therapy for an acute ?myocardial infarction. Left Jutso tricular Ejection fraction was not ?assessed. The [...] dose administered prior to arrival in the laboratory geneticist. ?Recommend continuing clopidogre l 75 mg PO [...] note might be different from the original. [facility] Cardiac Catheterization/Intervention Re port Patient Name: Darren Valentine Procedure Date: 09/14/2017 A #: [id number] Primary Physician: Mariana Bruno Case #: [id number] File Name: [id number] Catheterization Order Number: [id number] [facility] Final Report [place], [place] Patient Name: Darren Valentine ID#: [...] presented with: non-STEMI ( w/i 7 days). [place] [employer] angina class was IV. This [...] administered prior t o arrival in the laboratory geneticist. Recommend continuing clopidogrel 75 mg PO daily [...] angiography, left heart catheterization, bypass graft study, [facility] heart catheterization, oximetry, access site angiography and stent inser tion-bypass graft. Mariana Bruno M.D. Electronically Signed by: Edgar Mcdonald Report Finalized: 09/14/2017 17:25 Report Last Ammended: 01/22/2018 10:35 Mariana Bruno MD CARDIAC CATH ORDERABLES Performing Organization Address City/State/ZIP Code Phon e Number CARDIOMAC SYSTEM POCT Glucose (09/14/2017 11:00 AM EST) athologist Signature POC Glucose 150 65 - 199 [place] mg/dL [facility] Comment: Supplemental ranges: <140 mg/dL before meals <180 mg/dL all other times of the day Specimen Anatomical Collection Method Collection Time Receive d Time (Source) Location / / Volume Laterality Blood specimen 09/14/2017 11:00 7 (specimen) AM EST 11:00 AM EST Karyn Soliz MD POINT OF CARE TEST ORDERABLE S Performing Organization Address City/[facility]/ZIP Code Phon e Number [address] POCT Glucose (09/14/2017 7:36 AM EST) athologist Signature POC Glucose 160 65 - 199 [facility] mg/dL [facility] Comment: Supplemental ranges: <140 mg/dL before meals <180 mg/dL all other times of the day Specimen Anatomical Collection Method Collection Time Receive d Time (Source) Location / / Volume Laterality Blood specimen 09/14/2017 7:36 AM 017 7:36 (specimen) EST AM EST Karyn Soliz MD POINT OF CARE TEST ORDERABLE S Performing Organization Address City/[facility]/ZIP Code Phon e Number [address] POCT Glucose (09/14/2017 4:07 AM EST) athologist Signature POC Glucose 124 65 - 199 [facility] mg/dL [facility] Comment: Supplemental ranges: <140 mg/dL before meals <180 mg/dL all other times of the day Specimen Anatomical Collection Method Collection Time Receive d Time (Source) Location / / Volume Laterality Blood specimen 09/14/2017 4:07 AM 017 4:07 (specimen) EST AM EST Karyn Soliz MD POINT OF CARE TEST ORDERABLE S Performing Organization Address City/State/ZIP [place] [address] (ABNORMAL) Differential, Automated (09/14/2017 4:02 AM EST) [facility] Method Time Signature Neutrophils % 70.0 % [facility] Neutr Abs (ANC) 7.56 (H) 1.70 - [facility] 6.10 [facility] x10(3)/[facility] LABORATORY Lymphocytes % 15.6 % [facility] Lymphocytes Abs 1.7 0.9 - 3.2 [facility] x10(3)/[facility] LABORATORY Monocytes % 11.3 % [facility] Monocyte Abs 1.2 (H) 0.3 - 0.9 [facility] x10(3)/[facility] LABORATORY Eosinophils % 1.9 % [facility] Eosinophils Abs 0.2 0.0 - 0.4 [facility] x10(3)/[facility] LABORATORY Basophils % 0.6 % [facility] Basophils Abs 0.1 0.0 - 0.1 [facility] x10(3)/[facility] LABORATORY Immature Gran % 0.60 % [facility] Comment: Immature granulocytes(IG's)percentage an d absolute count will include metamyelocytes, myelocytes, and promyelo cytes. Blood smears from CBCs yielding IG's will be scanned manually for concor dance. If this scan disagrees with the automated IG or if promyelocytes are not ed, a manual differential will be performed. Kayla Gran Abs 0.06 (H) 0.00 - 0.04 x10(3)/[facility] LABORATORY Specimen Anatomical Collection Method Collection Time Receive d Time (Source) Location / / Volume Laterality Blood specimen 09/14/2017 4:02 AM 017 4:29 (specimen) EST AM EST Resulting Agency Comment Spec In Lab Duke Olivier MD HEMATOLOGY ORDERABLES Performing Organization Address City/State/[place] [address] (ABNORMAL) Hemogram (09/14/2017 4:02 AM EST) Analysis Performed At Patho logist Time Signature WBC 10.8 (H) 4.0 - 9.5 [facility] LABORATORY RBC 4.38 (L) 4.58 - [facility] [place] 5.54 [facility] x10(6)/[facility] LABORATORY Hemoglobin 12.5 (L) 13.7 - [facility] 16.5 gm/dL [facility] Hematocrit 38.2 (L) 40.5 - [facility] 48.5 % [facility] MCV 87.2 82.9 - [facility] 93.1 [facility] LABORATORY MCH 28.5 27.5 - [facility] 32.[address] [facility] MCHC 32.7 32.0 - [facility] 35.7 gm/dL [facility] Platelets 212 145 - 357 [facility] x10(3)/[facility] LABORATORY RDWSD 46.8 (H) 36.0 - [facility] 45.0 [facility] LABORATORY RDWCV 14.6 (H) 11.4 - [facility] 13.8 % [facility] MPV 10.5 7.6 - 12.9 [facility] LABORATORY nRBC % Auto 0.0 % [facility] nRBC Abs Auto 0.000 0.000 - [facility] 0.000 [facility] x10(3)/[facility] LABORATORY Specimen Anatomical Collection Method Collection Time Receive d Time (Source) Location / / Volume Laterality Blood specimen 09/14/2017 4:02 AM 017 4:29 (specimen) EST AM EST Resulting Agency Comment Spec In Lab Duke Olivier MD HEMATOLOGY ORDERABLES Performing Organization Address City/[facility]/ZIP [place] [address] (ABNORMAL) APTT (09/14/2017 4:02 AM EST) athologist Signature PTT 111 (H) 25 - [address] [facility] Comment: The recommended therapeutic range for fu ll dose, unfractionated heparin at [facility] is 80 ? 114 seconds. The use [...] Soliz MD HEMATOLOGY ORDERABLES Performing Organization Address City/[facility]/ZIP Code Phon e Number [address] Magnesium (09/14/2017 4:02 AM EST) athologist Signature Magnesium 0.97 0.69 - 1.07 [facility] mmol/L [facility] Specimen Anatomical Collection Method Collection Time Receive d Time (Source) Location / / Volume Laterality Blood specimen 09/14/2017 4:02 AM 017 4:29 (specimen) EST AM EST Resulting Agency Comment Spec In Lab Duke Olivier MD CHEMISTRY ORDERABLES Performing Organization Address City/[facility] Phon e Number [address] (ABNORMAL) Basic Metabolic Panel (non-fasting) (09/14/2017 4:02 AM EST) athologist Signature Glucose Lvl 112 65 - 199 [facility] mg/dL [facility] Comment: Diabetes: >=200 mg/dL plus symp toms BUN 45 (H) 10 - 20 mg/dL [facility] Creatinine 1.68 (H) 0.80 - 1.50 mg/dL [facility] Sodium 140 135 - 145 mmol/L [facility] Potassium 3.9 3.5 - 5.0 mmol/L [facility] Comment: Please note: ??Patients with WBC >100,00 0 may have falsely elevated Potassium levels. ??For accurate Potassium quantif ication in these patients send serum separator tube (gold top) for subsequent determinations. ??Contact the Clinical Chemistry Laboratory if there are any qu estions. Chloride 99 98 - 107 mmol/L [facility] CO2 25 22 - 31 mmol/L [facility] Anion Gap 16 (H) 5 - 15 mmol/L [facility] Calcium 8.9 8.5 - 10.5 mg/dL [facility] Estimated GFR 41 (L) >=60 [facility] Comment: The reported eGFR should be multiplied b y 1.2 for patients. The MDRD is not an appropriate measure o f renal function for patients with body mass extremes or in patients with acute kidney failure. http://Memetales/DHnkdep http://Memetales/DHMCnkf Specimen Anatomical Collection Method Collection Time Receive d Time (Source) Location / / Volume Laterality Blood specimen 09/14/2017 4:02 AM 017 4:29 (specimen) EST AM EST Resulting Agency Comment Spec In Lab Duke Olivier MD CHEMISTRY ORDERABLES Performing Organization Address City/State/ZIP Code Phon e Number [address] POCT Glucose (09/13/2017 11:54 PM EST) P athologist Signature POC Glucose 102 65 - 199 [facility] mg/dL [facility] Comment: Supplemental ranges: <140 mg/dL before meals <180 mg/dL all other times of the day Specimen Anatomical Collection Method Collection Time Receive d Time (Source) Location / / Volume Laterality Blood specimen 09/13/2017 11:54 7 (specimen) PM EST 11:54 PM EST Karyn Soliz MD POINT OF CARE TEST ORDERABLE S Performing Organization Address City/State/[place] [address] (ABNORMAL) APTT (09/13/2017 9:48 PM EST) P athologist Signature PTT 94 (H) 25 - [address] [facility] Comment: The recommended therapeutic range for fu ll dose, unfractionated heparin at [facility] is 80 ? 114 seconds. The use [...] Organization Address City/State/ZIP Code Phon e Number [address] (ABNORMAL) POCT Glucose (09/13/2017 8:12 PM EST) athologist Signature POC Glucose 203 (H) 65 - 199 [facility] mg/dL [facility] Comment: Supplemental ranges: <140 mg/dL before meals <180 mg/dL all other times of the day Specimen Anatomical Collection Method Collection Time Receive d Time (Source) Location / / Volume Laterality Blood specimen 09/13/2017 8:12 PM 017 8:12 (specimen) EST PM EST Karyn Soliz MD POINT OF CARE TEST ORDERABLE S Performing Organization Address City/[facility]/[place] [address] POCT Glucose (09/13/2017 5:20 PM EST) athologist Signature POC Glucose 130 65 - 199 [facility] mg/dL [facility] Comment: Supplemental ranges: <140 mg/dL before meals <180 mg/dL all other times of the day Specimen Anatomical Collection Method Collection Time Receive d Time (Source) Location / / Volume Laterality Blood specimen 09/13/2017 5:20 PM 017 5:20 (specimen) EST PM EST Karyn Soliz MD POINT OF CARE TEST ORDERABLE S Performing Organization Address City/State/[place] [address] (ABNORMAL) APTT (09/13/2017 3:10 PM EST) athologist Signature PTT 71 (H) 25 - [address] [facility] Comment: The recommended therapeutic range for fu ll dose, unfractionated heparin at [facility] is 80 ? 114 seconds. The use [...] Soliz MD HEMATOLOGY ORDERABLES Performing Organization Address City/[facility]/ZIP [facility] Phon e Number [address] POCT Glucose (09/13/2017 11:27 AM EST) athologist Signature POC Glucose 191 65 - [facility] Comment: Supplemental ranges: <140 mg/dL before meals <180 mg/dL all other times of the day Specimen Anatomical Collection Method Collection Time Receive d Time (Source) Location / / Volume Laterality Blood specimen 09/13/2017 11:27 7 (specimen) AM EST 11:27 AM EST Karyn Soliz MD POINT OF CARE TEST ORDERABLE S Performing Organization Address City/State/[place] [address] POCT Glucose (09/13/2017 8:10 AM EST) athologist Signature POC Glucose 124 65 - [facility] Comment: Supplemental ranges: <140 mg/dL before meals <180 mg/dL all other times of the day Specimen Anatomical Collection Method Collection Time Receive d Time (Source) Location / / Volume Laterality Blood specimen 09/13/2017 8:10 AM 017 8:10 (specimen) EST AM EST Karyn Soliz MD POINT OF CARE TEST ORDERABLE S Performing Organization Address City/State/[place] [address] (ABNORMAL) APTT (09/13/2017 7:33 AM EST) athologist Signature PTT 68 (H) 25 - [address] [facility] Comment: The recommended therapeutic range for fu ll dose, unfractionated heparin at [facility] is 80 ? 114 seconds. The use [...] Soliz MD HEMATOLOGY ORDERABLES Performing Organization Address City/[facility]/[place] [address] POCT Glucose (09/13/2017 3:50 AM EST) athologist Signature POC Glucose 111 65 - 199 [facility] mg/dL [facility] Comment: Supplemental ranges: <140 mg/dL before meals <180 mg/dL all other times of the day Specimen Anatomical Collection Method Collection Time Receive d Time (Source) Location / / Volume Laterality Blood specimen 09/13/2017 3:50 AM 017 3:50 (specimen) EST AM EST Karyn Soliz MD POINT OF CARE TEST ORDERABLE S Performing Organization Address City/State/[place] [address] (ABNORMAL) Differential, Automated (09/13/2017 1:20 AM EST) Patholo gist Method Time Signature Neutrophils % 72.8 % [facility] Neutr Abs (ANC) 8.12 (H) 1.70 - [facility] 6.10 [facility] x10(3)/[facility] LABORATORY Lymphocytes % 14.8 % [facility] Lymphocytes Abs 1.6 0.9 - 3.2 [facility] x10(3)/[facility] LABORATORY Monocytes % 9.9 % [facility] Monocyte Abs 1.1 (H) 0.3 - 0.9 [facility] x10(3)/[facility] LABORATORY Eosinophils % 1.6 % [facility] Eosinophils Abs 0.2 0.0 - 0.4 [facility] x10(3)/[facility] LABORATORY Basophils % 0.5 % [facility] Basophils Abs 0.1 0.0 - 0.1 [facility] x10(3)/[facility] LABORATORY Immature Gran % 0.40 % [facility] Comment: Immature granulocytes(IG's)percentage an d absolute count will include metamyelocytes, myelocytes, and promyelo cytes. Blood smears from CBCs yielding IG's will be scanned manually for concor dance. If this scan disagrees with the automated IG or if promyelocytes are not ed, a manual differential will be performed. Kayla Gran Abs 0.05 (H) 0.00 - 0.04 x10(3)/[facility] LABORATORY Specimen Anatomical Collection Method Collection Time Receive d Time (Source) Location / / Volume Laterality Blood specimen 09/13/2017 1:20 AM 017 1:25 (specimen) EST AM EST Resulting Agency Comment Spec In Lab Duke Olivier MD HEMATOLOGY ORDERABLES Performing Organization Address City/State/ZIP [place] [address] (ABNORMAL) Hemogram (09/13/2017 1:20 AM EST) Analysis Performed At Patho logist Time Signature WBC 11.2 (H) 4.0 - 9.5 [facility] x10(3)/[facility] LABORATORY RBC 4.17 (L) 4.58 - [facility] 5.54 [facility] x10(6)/[facility] LABORATORY Hemoglobin 11.8 (L) 13.7 - [facility] 16.5 gm/dL [facility] Hematocrit 36.3 (L) 40.5 - [facility] 48.5 % [facility] MCV 87.1 82.9 - [facility] [place] 93.1 [facility] LABORATORY MCH 28.3 27.5 - [facility] [place] 32.[address] [facility] MCHC 32.5 32.0 - [facility] [place] 35.7 gm/dL [facility] Platelets 181 145 - 357 [facility] x10(3)/[facility] LABORATORY RDWSD 46.5 (H) 36.0 - [facility] [place] 45.0 [facility] LABORATORY RDWCV 14.6 (H) 11.4 - [facility] 13.8 % [facility] MPV 10.4 7.6 - 12.9 [facility] LABORATORY nRBC % Auto 0.0 % [facility] nRBC Abs Auto 0.000 0.000 - [facility] [place] 0.000 [facility] x10(3)/[facility] LABORATORY Specimen Anatomical Collection Method Collection Time Receive d Time (Source) Location / / Volume Laterality Blood specimen 09/13/2017 1:20 AM 017 1:25 (specimen) EST AM EST Resulting Agency Comment Spec In Lab Duke Olivier MD HEMATOLOGY ORDERABLES Performing Organization Address City/State/ZIP Code Phon e Number [address] (ABNORMAL) APTT (09/13/2017 1:20 AM EST) athologist Signature PTT 80 (H) 25 - [address] [facility] Comment: The recommended therapeutic range for fu ll dose, unfractionated heparin at [facility] is 80 ? 114 seconds. The use [...] Organization Address City/State/[place] [address] Magnesium (09/13/2017 1:20 AM EST) athologist Signature Magnesium 0.94 0.69 - 1.07 [facility] mmol/L [facility] Specimen Anatomical Collection Method Collection Time Receive d Time (Source) Location / / Volume Laterality Blood specimen 09/13/2017 1:20 AM 017 1:25 (specimen) EST AM EST Resulting Agency Comment Spec In Lab Duke Olivier MD CHEMISTRY ORDERABLES Performing Organization Address City/State/ZIP [place] [address] (ABNORMAL) Basic Metabolic Panel (non-fasting) (09/13/2017 1:20 AM EST) athologist Signature Glucose Lvl 114 65 - 199 [facility] mg/dL [facility] Comment: Diabetes: >=200 mg/dL plus symp toms BUN 45 (H) 10 - 20 mg/dL [facility] Creatinine 1.57 (H) 0.80 - 1.50 mg/dL [facility] Sodium 137 135 - 145 mmol/L [facility] Potassium 3.7 3.5 - 5.0 mmol/L [facility] Comment: Please note: ??Patients with WBC >100,00 0 may have falsely elevated Potassium levels. ??For accurate Potassium quantif ication in these patients send serum separator tube (gold top) for subsequent determinations. ??Contact the Clinical Chemistry Laboratory if there are any qu estions. Chloride 98 98 - 107 mmol/L [facility] CO2 25 22 - 31 mmol/L [facility] Anion Gap 14 5 - 15 mmol/L [facility] Calcium 8.8 8.5 - 10.5 mg/dL [facility] Estimated GFR 44 (L) >=60 [facility] Comment: The reported eGFR should be multiplied b y 1.2 for patients. The MDRD is not an appropriate measure o f renal function for patients with body mass extremes or in patients with acute kidney failure. http://letsmote.com.Gema Touch/DHnkdep http://Memetales/DHMCnkf Specimen Anatomical Collection Method Collection Time Receive d Time (Source) Location / / Volume Laterality Blood specimen 09/13/2017 1:20 AM 017 1:25 (specimen) EST AM EST Resulting Agency Comment Spec In Lab Duke Olivier MD CHEMISTRY ORDERABLES Performing Organization Address City/[facility]/[place] [address] SCAN DOC: CARDIAC CATH (09/13/2017 12:00 AM EST) Narrative 09/13/2017 12:00 AM EST This result has an attachment that is no t available. Ordered by an unspecified provider. Scanning Provider MEDIA MGR SCAN EXT ORDR/RSLT POCT Glucose (09/12/2017 11:16 PM EST) athologist Signature POC Glucose 120 65 - 199 [facility] mg/dL [facility] Comment: Supplemental ranges: <140 mg/dL before meals <180 mg/dL all other times of the day Specimen Anatomical Collection Method Collection Time Receive d Time (Source) Location / / Volume Laterality Blood specimen 09/12/2017 11:16 7 (specimen) PM EST 11:16 PM EST Karyn Soliz MD POINT OF CARE TEST ORDERABLE S Performing Organization Address City/[facility]/[place] [address] POCT Glucose (09/12/2017 7:41 PM EST) P athologist Signature POC Glucose 152 65 - 199 [facility] mg/dL [facility] Comment: Supplemental ranges: <140 mg/dL before meals <180 mg/dL all other times of the day Specimen Anatomical Collection Method Collection Time Receive d Time (Source) Location / / Volume Laterality Blood specimen 09/12/2017 7:41 PM 017 7:41 (specimen) EST PM EST Karyn Soliz MD POINT OF CARE TEST ORDERABLE S Performing Organization Address City/State/[place] [address] (ABNORMAL) APTT (09/12/2017 5:47 PM EST) athologist Signature PTT 37 (H) 25 - [address] [facility] Comment: The recommended therapeutic range for fu ll dose, unfractionated heparin at [facility] is 80 ? 114 seconds. The use [...] Organization Address City/State/ZIP Code Phon e Number [address] POCT Glucose (09/12/2017 3:33 PM EST) athologist Signature POC Glucose 151 65 - 199 [facility] mg/dL [facility] Comment: Supplemental ranges: <140 mg/dL before meals <180 mg/dL all other times of the day Specimen Anatomical Collection Method Collection Time Receive d Time (Source) Location / / Volume Laterality Blood specimen 09/12/2017 3:33 PM 017 3:33 (specimen) EST PM EST Karyn Soliz MD POINT OF CARE TEST ORDERABLE S Performing Organization Address City/State/[place] [address] (ABNORMAL) Cardiac Enzymes (LEB/CGP) (09/12/2017 1:34 PM EST) athologist Signature Troponin-T 0.02 (H) 0.00 - [facility] 0.00 ng/mL [facility] Comment: The 99th percentile for Troponin T is le ss than 0.01 ng/mL, any detectable cTnT concentration using this assay should be considered elevated. According to the third universal definit ion of myocardial infarction the following criteria with a clinical prese ntation consistent with acute myocardial ischemia meets the diagnosis for a myocardial infarction (SC). Detection of a rise and/or fall of [...] additional sample may be indicated. Reference: Third [place] Definition of Myocardial Infarction. Journal of the [place] College [employer] 2012;60:1581-98 CK, Total 193 0 - 200 unit/L [facility] Specimen Anatomical Collection Method Collection Time Receive d Time (Source) Location / / Volume Laterality Blood specimen 09/12/2017 1:34 PM 017 1:49 (specimen) EST PM EST Resulting Agency Comment Spec In Lab Duke Olivier MD CHEMISTRY ORDERABLES Performing Organization Address City/State/ZIP Code Phon e Number [address] POCT Glucose (09/12/2017 12:08 PM EST) P athologist Signature POC Glucose 150 65 - 199 [facility] mg/dL [facility] Comment: Supplemental ranges: <140 mg/dL before meals <180 mg/dL all other times of the day Specimen Anatomical Collection Method Collection Time Receive d Time (Source) Location / / Volume Laterality Blood specimen 09/12/2017 12:08 7 (specimen) PM EST 12:08 PM EST Karyn Soliz MD POINT OF CARE TEST ORDERABLE S Performing Organization Address City/[facility]/ZIP Code Phon e Number [address] APTT (09/12/2017 11:01 AM EST) P athologist Signature PTT 35 25 - [address] [facility] Comment: The recommended therapeutic range for fu ll dose, unfractionated heparin at [facility] is 80 ? 114 seconds. The use [...] Soliz MD HEMATOLOGY ORDERABLES Performing Organization Address City/[facility]/ZIP [facility] Phon e Number [address] POCT Glucose (09/12/2017 7:41 AM EST) athologist Signature POC Glucose 129 65 - [address] [facility] mg/dL [facility] Comment: Supplemental ranges: <140 mg/dL before meals <180 mg/dL all other times of the day Specimen Anatomical Collection Method Collection Time Receive d Time (Source) Location / / Volume Laterality Blood specimen 09/12/2017 7:41 AM 017 7:41 (specimen) EST AM EST Karyn Soliz MD POINT OF CARE TEST ORDERABLE S Performing Organization Address City/[facility]/ZIP [facility] Phon e Number [address] (ABNORMAL) Differential, Automated (09/12/2017 6:02 AM EST) Patholo gist Method Time Signature Neutrophils % 74.0 % [facility] Neutr Abs (ANC) 7.27 (H) 1.70 - [facility] 6.10 [facility] x10(3)/[facility] LABORATORY Lymphocytes % 13.6 % [facility] Lymphocytes Abs 1.3 0.9 - 3.2 [facility] x10(3)/[facility] LABORATORY Monocytes % 9.9 % [facility] Monocyte Abs 1.0 (H) 0.3 - 0.9 [facility] x10(3)/[facility] LABORATORY Eosinophils % 1.8 % [facility] Eosinophils Abs 0.2 0.0 - 0.4 [facility] x10(3)/[facility] LABORATORY Basophils % 0.3 % [facility] Basophils Abs 0.0 0.0 - 0.1 [facility] x10(3)/[facility] LABORATORY Immature Gran % 0.40 % [facility] Comment: Immature granulocytes(IG's)percentage an d absolute count will include metamyelocytes, myelocytes, and promyelo cytes. Blood smears from CBCs yielding IG's will be scanned manually for concor dance. If this scan disagrees with the automated IG or if promyelocytes are not ed, a manual differential will be performed. Kayla Gran Abs 0.04 0.00 - 0.04 x10(3)/[facility] LABORATORY Specimen Anatomical Collection Method Collection Time Receive d Time (Source) Location / / Volume Laterality Blood specimen 09/12/2017 6:02 AM 017 6:25 (specimen) EST AM EST Resulting Agency Comment Spec In Lab Duke Olivier MD HEMATOLOGY ORDERABLES Performing Organization Address City/State/ZIP [place] [address] (ABNORMAL) Hemogram (09/12/2017 6:02 AM EST) Analysis Performed At Patho logist Time Signature WBC 9.8 (H) 4.0 - 9.5 [facility] x10(3)/[facility] LABORATORY RBC 4.42 (L) 4.58 - [facility] 5.54 [facility] x10(6)/[facility] LABORATORY Hemoglobin 12.6 (L) 13.7 - [facility] 16.5 gm/dL [facility] Hematocrit 38.9 (L) 40.5 - [facility] 48.5 % [facility] MCV 88.0 82.9 - [facility] 93.[address] [facility] MCH 28.5 27.5 - [facility] 32.[address] [facility] MCHC 32.4 32.0 - [facility] 35.7 gm/dL [facility] Platelets 187 145 - 357 [facility] x10(3)/[facility] LABORATORY RDWSD 46.8 (H) 36.0 - [facility] JENN[facility] 45.0 [facility] LABORATORY RDWCV 14.6 (H) 11.4 - [facility] 13.8 % [facility] MPV 10.5 7.6 - 12.9 [facility] LABORATORY nRBC % Auto 0.0 % [facility] nRBC Abs Auto 0.000 0.000 - [facility] 0.000 [facility] x10(3)/[facility] LABORATORY Specimen Anatomical Collection Method Collection Time Receive d Time (Source) Location / / Volume Laterality Blood specimen 09/12/2017 6:02 AM 017 6:25 (specimen) EST AM EST Resulting Agency Comment Spec In Lab Duke Olivier MD HEMATOLOGY ORDERABLES Performing Organization Address City/State/[place] [address] (ABNORMAL) Cardiac Enzymes (LEB/CGP) (09/12/2017 6:02 AM EST) P athologist Signature Troponin-T 0.02 (H) 0.00 - [facility] 0.00 ng/mL [facility] Comment: The 99th percentile for Troponin T is le ss than 0.01 ng/mL, any detectable cTnT concentration using this assay should be considered elevated. According to the third universal definit ion of myocardial infarction the following criteria with a clinical prese ntation consistent with acute myocardial ischemia meets the diagnosis for a myocardial infarction (SC). Detection of a rise and/or fall of [...] additional sample may be indicated. Reference: Third [place] Definition of Myocardial Infarction. Journal of the [place] College [employer]iology 2012;60:1581-98 CK, Total 200 0 - 200 unit/L [facility] Specimen Anatomical Collection Method Collection Time Receive d Time (Source) Location / / Volume Laterality Blood specimen 09/12/2017 6:02 AM 017 6:25 (specimen) EST AM EST Resulting Agency Comment Spec In Lab Duke Olivier MD CHEMISTRY ORDERABLES Performing Organization Address City/[facility]/ZIP Code Phon e Number [address] Magnesium (09/12/2017 6:02 AM EST) P athologist Signature Magnesium 0.88 0.69 - 1.07 [facility] mmol/L [facility] Specimen Anatomical Collection Method Collection Time Receive d Time (Source) Location / / Volume Laterality Blood specimen 09/12/2017 6:02 AM 017 6:25 (specimen) EST AM EST Resulting Agency Comment Spec In Lab Duke Olivier MD CHEMISTRY ORDERABLES Performing Organization Address City/[facility] [place] [address] (ABNORMAL) Basic Metabolic Panel (non-fasting) (09/12/2017 6:02 AM EST) P athologist Signature Glucose Lvl 125 65 - 199 [facility] mg/dL [facility] Comment: Diabetes: >=200 mg/dL plus symp toms BUN 39 (H) 10 - 20 mg/dL [facility] Creatinine 1.49 0.80 - 1.50 mg/dL [facility] Sodium 139 135 - 145 mmol/L [facility] Potassium 3.8 3.5 - 5.0 mmol/L [facility] Comment: Please note: ??Patients with WBC >100,00 0 may have falsely elevated Potassium levels. ??For accurate Potassium quantif ication in these patients send serum separator tube (gold top) for subsequent determinations. ??Contact the Clinical Chemistry Laboratory if there are any qu estions. Chloride 97 (L) 98 - 107 mmol/L [facility] CO2 26 22 - 31 mmol/L [facility] Anion Gap 16 (H) 5 - 15 mmol/L [facility] Calcium 8.9 8.5 - 10.5 mg/dL [facility] Estimated GFR 47 (L) >=60 [facility] Comment: The reported eGFR should be multiplied b y 1.2 for patients. The MDRD is not an appropriate measure o f renal function for patients with body mass extremes or in patients with acute kidney failure. http://Memetales/DHnkdep http://Memetales/DHMCnkf Specimen Anatomical Collection Method Collection Time Receive d Time (Source) Location / / Volume Laterality Blood specimen 09/12/2017 6:02 AM 017 6:25 (specimen) EST AM EST Resulting Agency Comment Spec In Lab Duke Olivier MD CHEMISTRY ORDERABLES Performing Organization Address City/State/[place] [address] POCT Glucose (09/12/2017 3:53 AM EST) athologist Signature POC Glucose 107 65 - 199 [facility] mg/dL [facility] Comment: Supplemental ranges: <140 mg/dL before meals <180 mg/dL all other times of the day Specimen Anatomical Collection Method Collection Time Receive d Time (Source) Location / / Volume Laterality Blood specimen 09/12/2017 3:53 AM 017 3:53 (specimen) EST AM EST Karyn Soliz MD POINT OF CARE TEST ORDERABLE S Performing Organization Address City/[facility]/[place] [address] (ABNORMAL) Cardiac Enzymes (LEB/CGP) (09/12/2017 12:20 AM EST) athologist Signature Troponin-T 0.04 (H) 0.[address] [facility]/mL [facility] Comment: The 99th percentile for Troponin T is le ss than 0.01 ng/mL, any detectable cTnT concentration using this assay should be considered elevated. According to the third universal definit ion of myocardial infarction the following criteria with a clinical prese ntation consistent with acute myocardial ischemia meets the diagnosis for a myocardial infarction (SC). Detection of a rise and/or fall of [...] additional sample may be indicated. Reference: Third [place] Definition of Myocardial Infarction. Journal of the [place] [employer] 2012;60:1581-98 CK, Total 224 (H) 0 - 200 unit/L [facility] Specimen Anatomical Collection Method Collection Time Receive d Time (Source) Location / / Volume Laterality Blood specimen 09/12/2017 12:20 7 (specimen) AM EST 12:43 AM EST Resulting Agency Comment Spec In Lab Duke Olivier MD CHEMISTRY ORDERABLES Performing Organization Address City/State/ZIP [place] [address] POCT Glucose (09/11/2017 11:43 PM EST) P athologist Signature POC Glucose 90 65 - 199 [facility] mg/dL [facility] Comment: Supplemental ranges: <140 mg/dL before meals <180 mg/dL all other times of the day Specimen Anatomical Collection Method Collection Time Receive d Time (Source) Location / / Volume Laterality Blood specimen 09/11/2017 11:43 7 (specimen) PM EST 11:43 PM EST Karyn Soliz MD POINT OF CARE TEST ORDERABLE S Performing Organization Address City/[facility]/ZIP [place] [address] EKG 12 Lead (09/11/2017 11:25 PM EST) Component Value Ref Range Test Analysis Performed Pathologis t Method Time At Signature Ventricular rate 70 BPM MUSE SYSTEM Atrial Rate 70 BPM MUSE SYSTEM P-R Interval 188 ms MUSE SYSTEM QRS Duration 100 ms MUSE SYSTEM Q-T Interval 424 ms MUSE SYSTEM QTC Calculated 457 ms MUSE SYSTEM (Bezet) Calculated P [place] 44 degrees MUSE SYSTEM Calculated R [place] 38 degrees MUSE SYSTEM Calculated T [place] 4 degrees MUSE SYSTEM INTERPRETATION Normal sinus [...] Olivier MD ECG ORDERABLES Performing Organization Address City/[facility]/ZIP Code Phon e Number MUSE SYSTEM POCT Glucose (09/11/2017 8:08 PM EST) P athologist Signature POC Glucose 175 65 - [facility] Comment: Supplemental ranges: <140 mg/dL before meals <180 mg/dL all other times of the day Specimen Anatomical Collection Method Collection Time Receive d Time (Source) Location / / Volume Laterality Blood specimen 09/11/2017 8:08 PM 017 8:08 (specimen) EST PM EST Karyn Soliz MD POINT OF CARE TEST ORDERABLE S Performing Organization Address City/[facility]/ZIP [place] [address] (ABNORMAL) Cardiac Enzymes (LEB/CGP) (09/11/2017 4:53 PM EST) P athologist Signature Troponin-T 0.03 (H) 0.00 - [facility] 0.00 ng/mL [facility] Comment: The 99th percentile for Troponin T is le ss than 0.01 ng/mL, any detectable cTnT concentration using this assay should be considered elevated. According to the third universal definit ion of myocardial infarction the following criteria with a clinical prese ntation consistent with acute myocardial ischemia meets the diagnosis for a myocardial infarction (SC). Detection of a rise and/or fall of [...] additional sample may be indicated. Reference: Third [place] Definition of Myocardial Infarction. Journal of the [place] [employer] 2012;60:1581-98 CK, Total 213 (H) 0 - 200 unit/L [facility] Specimen Anatomical Collection Method Collection Time Receive d Time (Source) Location / / Volume Laterality Blood specimen 09/11/2017 4:53 PM 017 4:59 (specimen) EST PM EST Resulting Agency Comment Spec In Lab Duke Olivier MD CHEMISTRY ORDERABLES Performing Organization Address City/[facility]/[place] [address] POCT Glucose (09/11/2017 4:30 PM EST) P athologist Signature POC Glucose 122 65 - 199 [facility] mg/dL [facility] Comment: Supplemental ranges: <140 mg/dL before meals <180 mg/dL all other times of the day Specimen Anatomical Collection Method Collection Time Receive d Time (Source) Location / / Volume Laterality Blood specimen 09/11/2017 4:30 PM 017 4:30 (specimen) EST PM EST Karyn Soliz MD POINT OF CARE TEST ORDERABLE S Performing Organization Address City/[facility]/[place] [address] ECHOCARDIOGRAM COMPLETE W CONTRAST (09/11/2017 11:45 AM EST) P athologist Signature EF 35 [facility] Specimen (Source) Anatomical Location Collection Method / Collectio n Time Received Time / Laterality Volume 09/11/2017 Narrative [facility] - 09/11/2017 2:09 PM EST Procedure: ?Transthoracic Echocardiogram Patient: ?SERGE Reyez ? (Age): 1945(72y) Med Rec#: ? [id number] ?Sex: ?M ? Site Loc: ? [facility] ?Ht / Wt: ??168(cm)/126(kg) Pt. Loc: ?Adult Floor ? BSA: ?2.3 Study Date: ?? 09/11/2017 ?Pt. Type: Inpatient Tape: ? Referring: JACY BRUNO E Referring: Duke Olivier ([id number]) Reading: Rafael Givens ([id number]) Accounts Receivable Specialist: Jacy Chan [facility] Diagnosis: *ICD-10-PCS Heart failure, unspecified (I50.9) [...] E-wave Vmax ?0.8 ?m/sec ? MV deceleration [id number] ?msec ? MV A-wave Vmax ?0.3 ?m/sec [...] ? Mid-Inferior ?Hypokinetic ? Mid-Inferoseptal ?Hypokinetic ? [place]-Septal ? Hypokinetic ? [place]-Anterior ? Hypokinetic ? [place]-Lateral ?Hypokinetic ? [place]-Inferior ? Hypokinetic ? [place]-Tip ?Hypokinetic ? This report has been electronically sign ed by: _ Rafael Givens MD ? 09/11/2017 13 :41:22 Images reviewed and interpretation verif ied [facility] Cardiac Ultrasound Laboratory Procedure Note Rafeal Givens MD - 09/11/2017Formatt ing of this note might be different from the original. Procedure: Transthoracic Echocardiogram Patient: SERGE Reyez (Age): [birth year](72y) Med Rec#: [id number] Sex: M Site Loc: [facility] Ht / Wt: 168(cm)/126(kg) Pt. Loc: Adult Floor BSA: 2.3 Study Date: 09/11/2017 Pt. Type: Inpatie nt Tape: Referring: JACY BRUNO E Referring: Duke Olivier ([id number]) Reading: Rafael Givens ([id number]) Accounts Receivable Specialist: Jacy Chan [facility] Diagnosis: *ICD-10-PCS Heart failure, unspecified (I50.9) [...] pericardial effusion. 8. Since prior study in 2012, LV and RV function are now worse. [...] MV E-wave Vmax 0.8 m/sec MV deceleration [id number] msec MV A-wave Vmax 0.3 m/sec MV E:A ratio 2.6 ratio LV E:e' septal ratio15.2 ratio LV E:e' lateral rati10.6 ratio Tricuspid Valve Value Units (Range) RAP 3 mmHg Wall Motion: Segment Name Rest Base-Anteroseptal Hypokinetic Base-Anterior Hypokinetic Base-Anterolateral Hypokinetic Base-Posterolateral Hypokinetic Base-Inferior Hypokinetic Base-Inferoseptal Hypokinetic Mid-Anteroseptal Hypokinetic Mid-Anterior Hypokinetic Mid-Anterolateral Hypokinetic Mid-Posterolateral Hypokinetic Mid-Inferior Hypokinetic Mid-Inferoseptal Hypokinetic Arbela-Septal Hypokinetic Arbela-Anterior Hypokinetic Arbela-Lateral Hypokinetic Arbela-Inferior Hypokinetic [place]-Tip Hypokinetic This report has been electronically sign ed by: _ Rafael Givens MD 09/11/2017 13:41:22 Images reviewed and interpretation ame plunkett [facility] Cardiac Ultrasound Laboratory Duke Olivier MD ECHO ORDERABLES Performing Organization Address City/State/ZIP Code Phon e Number [facility] POCT Glucose (09/11/2017 11:45 AM EST) athologist Signature POC Glucose 146 65 - 199 [facility] mg/dL [facility] Comment: Supplemental ranges: <140 mg/dL before meals <180 mg/dL all other times of the day Specimen Anatomical Collection Method Collection Time Receive d Time (Source) Location / / Volume Laterality Blood specimen 09/11/2017 11:45 7 (specimen) AM EST 11:45 AM EST Karyn Soliz MD POINT OF CARE TEST ORDERABLE S Performing Organization Address City/State/[place] [address] (ABNORMAL) Cardiac Enzymes (LEB/CGP) (09/11/2017 10:46 AM EST) athologist Signature Troponin-T 0.03 (H) 0.[address] [facility] ng/mL [facility] Comment: The 99th percentile for Troponin T is le ss than 0.01 ng/mL, any detectable cTnT concentration using this assay should be considered elevated. According to the third universal definit ion of myocardial infarction the following criteria with a clinical prese ntation consistent with acute myocardial ischemia meets the diagnosis for a myocardial infarction (SC). Detection of a rise and/or fall of [...] additional sample may be indicated. Reference: Third [place] Definition of Myocardial Infarction. Journal of the [place] [employer] 2012;60:1581-98 CK, Total 202 (H) 0 - 200 unit/L [facility] Specimen Anatomical Collection Method Collection Time Receive d Time (Source) Location / / Volume Laterality Blood specimen 09/11/2017 10:46 7 (specimen) AM EST 10:53 AM EST Resulting Agency Comment Spec In Lab Duke Olivier MD CHEMISTRY ORDERABLES Performing Organization Address City/State/[place] [address] POCT Glucose (09/11/2017 7:32 AM EST) athologist Signature POC Glucose 124 65 - 199 [facility] mg/dL [facility] Comment: Supplemental ranges: <140 mg/dL before meals <180 mg/dL all other times of the day Specimen Anatomical Collection Method Collection Time Receive d Time (Source) Location / / Volume Laterality Blood specimen 09/11/2017 7:32 AM 017 7:32 (specimen) EST AM EST Karyn Soliz MD POINT OF CARE TEST ORDERABLE S Performing Organization Address City/State/[place] [address] (ABNORMAL) Basic Metabolic Panel (non-fasting) (09/11/2017 5:05 AM EST) P athologist Signature Glucose Lvl 110 65 - 199 [facility] mg/dL [facility] Comment: Diabetes: >=200 mg/dL plus symp toms BUN 33 (H) 10 - 20 mg/dL [facility] Creatinine 1.52 (H) 0.80 - 1.50 mg/dL [facility] Sodium 140 135 - 145 mmol/L [facility] Potassium 4.1 3.5 - 5.0 mmol/L [facility] Comment: Please note: ??Patients with WBC >100,00 0 may have falsely elevated Potassium levels. ??For accurate Potassium quantif ication in these patients send serum separator tube (gold top) for subsequent determinations. ??Contact the Clinical Chemistry Laboratory if there are any qu estions. Chloride 99 98 - 107 mmol/L [facility] CO2 Not Perf 22 - 31 mmol/L [facility] Comment: Add-on request. Sample too old to perform test. Anion Gap Unable to Calculate 5 - 15 mmol/L [facility] Calcium 9.2 8.5 - 10.5 mg/dL [facility] Estimated GFR 46 (L) >=60 [facility] Comment: The reported eGFR should be multiplied b y 1.2 for patients. The MDRD is not an appropriate measure o f renal function for patients with body mass extremes or in patients with acute kidney failure. http://Memetales/DHnkdep http://Memetales/DHMCnkf Specimen Anatomical Collection Method Collection Time Receive d Time (Source) Location / / Volume Laterality Blood specimen Venous Draw / 09/11/2017 5:05 AM 2016 5:47 (specimen) Unknown EST AM EST Resulting Agency Comment Spec In Lab Duke Olivier MD CHEMISTRY ORDERABLES Performing Organization Address City/[facility]/ZIP Code Phon e Number [address] Lavender Tube HOLD (09/11/2017 5:05 AM EST) [facility] Method Time Signature Lavender Hold Sample in [facility]. [facility] Specimen Anatomical Collection Method Collection Time Receive d Time (Source) Location / / Volume Laterality Blood specimen Venous Draw / 09/11/2017 5:05 AM 2016 5:43 (specimen) Unknown EST AM EST Duke Olivier MD HEMATOLOGY ORDERABLES Performing Organization Address City/[facility]/ZIP Code Phon e Number [address] (ABNORMAL) Cardiac Enzymes (LEB/CGP) (09/11/2017 5:05 AM EST) athologist Signature Troponin-T 0.03 (H) 0.00 - [facility] 0.00 ng/mL [facility] Comment: The 99th percentile for Troponin T is le ss than 0.01 ng/mL, any detectable cTnT concentration using this assay should be considered elevated. According to the third universal definit ion of myocardial infarction the following criteria with a clinical prese ntation consistent with acute myocardial ischemia meets the diagnosis for a myocardial infarction (SC). Detection of a rise and/or fall of [...] additional sample may be indicated. Reference: Third [place] Definition of Myocardial Infarction. Journal of the [place] [employer] 2012;60:1581-98 CK, Total 182 0 - 200 unit/L [facility] Specimen Anatomical Collection Method Collection Time Receive d Time (Source) Location / / Volume Laterality Blood specimen 09/11/2017 5:05 AM 017 5:43 (specimen) EST AM EST Resulting Agency Comment Spec In Lab Duke Olivier MD CHEMISTRY ORDERABLES Performing Organization Address City/State/ZIP Code Phon e Number [address] POCT Glucose (09/11/2017 5:04 AM EST) athologist Signature POC Glucose 107 65 - 199 [facility] mg/dL [facility] Comment: Supplemental ranges: <140 mg/dL before meals <180 mg/dL all other times of the day Specimen Anatomical Collection Method Collection Time Receive d Time (Source) Location / / Volume Laterality Blood specimen 09/11/2017 5:04 AM 017 5:04 (specimen) EST AM EST Duke Olivier MD POINT OF CARE TEST ORDERABLE S Performing Organization Address City/State/ZIP Code Phon e Number [address] POCT Glucose (09/11/2017 12:49 AM EST) P athologist Signature POC Glucose 96 65 - 199 [facility] mg/dL [facility] Comment: Supplemental ranges: <140 mg/dL before meals <180 mg/dL all other times of the day Specimen Anatomical Collection Method Collection Time Receive d Time (Source) Location / / Volume Laterality Blood specimen 09/11/2017 12:49 7 (specimen) AM EST 12:49 AM EST Duke Olivier MD POINT OF CARE TEST ORDERABLE S Performing Organization Address [facility] [place] [address] EKG 12 Lead (09/11/2017 12:27 AM EST) Component Value Ref Range Test Analysis Performed Pathologis t Method Time At Signature Ventricular rate 76 BPM MUSE SYSTEM Atrial Rate 76 BPM MUSE SYSTEM P-R Interval 182 ms MUSE SYSTEM QRS Duration 100 ms MUSE SYSTEM Q-T Interval 432 ms MUSE SYSTEM QTC Calculated 486 ms MUSE SYSTEM (Bezet) Calculated P [place] 36 degrees MUSE SYSTEM Calculated R [place] 30 degrees MUSE SYSTEM Calculated T [place] 35 degrees MUSE SYSTEM INTERPRETATION Normal sinus [...] Olivier MD ECG ORDERABLES Performing Organization Address City/[facility]/ZIP Code Phon e Number MUSE SYSTEM XR [...] (ABNORMAL) Differential, Automated (09/10/2017 9:10 PM EST) [facility] Method Time Signature Neutrophils % 80.3 % [facility] Neutr Abs (ANC) 10.50 (H) 1.70 - [facility] 6.10 [facility] x10(3)/[facility] LABORATORY Lymphocytes % 10.0 % [facility] Lymphocytes Abs 1.3 0.9 - 3.2 [facility] x10(3)/[facility] LABORATORY Monocytes % 7.7 % [facility] Monocyte Abs 1.0 (H) 0.3 - 0.9 [facility] x10(3)/[facility] LABORATORY Eosinophils % 1.1 % [facility] Eosinophils Abs 0.1 0.0 - 0.4 [facility] x10(3)/[facility] LABORATORY Basophils % 0.4 % [facility] Basophils Abs 0.0 0.0 - 0.1 [facility] x10(3)/[facility] LABORATORY Immature Gran % 0.50 % [facility] Comment: Immature granulocytes(IG's)percentage an d absolute count will include metamyelocytes, myelocytes, and promyelo cytes. Blood smears from CBCs yielding IG's will be scanned manually for concor dance. If this scan disagrees with the automated IG or if promyelocytes are not ed, a manual differential will be performed. Kayla Gran Abs 0.07 (H) 0.00 - 0.04 x10(3)/[facility] LABORATORY Specimen Anatomical Collection Method Collection Time Receive d Time (Source) Location / / Volume Laterality Blood specimen 09/10/2017 9:10 PM 017 9:19 (specimen) EST PM EST Resulting Agency Comment Spec In Lab Duke Olivier MD HEMATOLOGY ORDERABLES Performing Organization Address City/State/ZIP [place] [address] (ABNORMAL) Hemogram (09/10/2017 9:10 PM EST) Analysis Performed At Patho logist Time Signature WBC 13.1 (H) 4.0 - 9.5 [facility] x10(3)/[facility] LABORATORY RBC 4.38 (L) 4.58 - [facility] 5.54 [facility] x10(6)/[facility] LABORATORY Hemoglobin 12.2 (L) 13.7 - [facility] 16.5 gm/dL [facility] Hematocrit 38.5 (L) 40.5 [facility] % [facility] MCV 87.9 82.9 [facility] [address] [facility] MCH 27.9 27.5 - [facility] 32.[address] [facility] MCHC 31.7 (L) 32.0 - [facility] 35.7 gm/dL [facility] Platelets 184 145 - 357 [facility] x10(3)/[facility] LABORATORY RDWSD 47.5 (H) 36.0 - [facility]ENN[facility] 45.0 [facility] LABORATORY RDWCV 14.6 (H) 11.4 - [facility] 13.8 % [facility] MPV 10.4 7.6 - 12.9 [facility]ENN[facility] LABORATORY nRBC % Auto 0.0 % [facility] nRBC Abs Auto 0.000 0.000 - [facility] 0.000 [facility] x10(3)/[facility] LABORATORY Specimen Anatomical Collection Method Collection Time Receive d Time (Source) Location / / Volume Laterality Blood specimen 09/10/2017 9:10 PM 017 9:19 (specimen) EST PM EST Resulting Agency Comment Spec In Lab Duke Olivier MD HEMATOLOGY ORDERABLES Performing Organization Address City/State/ZIP [place] [address] (ABNORMAL) Cardiac Enzymes (LEB/CGP) (09/10/2017 9:10 PM EST) P athologist Signature Troponin-T 0.04 (H) 0.00 - [facility] 0.00 ng/mL [facility] Comment: The 99th percentile for Troponin T is le ss than 0.01 ng/mL, any detectable cTnT concentration using this assay should be considered elevated. According to the third universal definit ion of myocardial infarction the following criteria with a clinical prese ntation consistent with acute myocardial ischemia meets the diagnosis for a myocardial infarction (SC). Detection of a rise and/or fall of [...] additional sample may be indicated. Reference: Third [place] Definition of Myocardial Infarction. Journal of the [place] [employer] 2012;60:1581-98 CK, Total 195 0 - 200 unit/L [facility] Specimen Anatomical Collection Method Collection Time Receive d Time (Source) Location / / Volume Laterality Blood specimen 09/10/2017 9:10 PM 017 (specimen) EST 11:24 PM EST Resulting Agency Comment Spec In Lab Duke Olivier MD CHEMISTRY ORDERABLES Performing Organization Address City/State/ZIP Code Phon e Number [address] LDL Cholesterol, Direct (09/10/2017 9:10 PM EST) P athologist Signature LDL Chol 99 <=190 [facility] Direct mg/dL [facility] LABOR[facility] Specimen Anatomical Collection Method Collection Time Receive d Time (Source) Location / / Volume Laterality Blood specimen 09/10/2017 9:10 PM 017 (specimen) EST 11:24 PM EST Resulting Agency Comment Spec In Lab Duke Olivier MD CHEMISTRY ORDERABLES Performing Organization Address City/[facility]/ZIP Code Phon e Number [address] HDL/Cholesterol Profile (09/10/2017 9:10 PM EST) Patholo gist Method Time Signature Chol, Total 155 <=239 [facility] mg/dL [facility] LABORATORY HDL 43 >=40 [facility] mg/dL [facility] LABOR[facility]ORY Chol/HDL Ratio 3.[address] [facility] Chol/HDL See Note [facility] Interpretation [facility] Comment: Lipid management should be guided by a p atient? s ASCVD risk, goals and preferences. ACC/AHA Guidelines recommend high intens ity statin if clinical ASCVD or LDL greater than or equal to 190 mg/dL. http://[email or web address]/NFH-FJN-Qfueuzgqy Measure LDL if Total Cholesterol minus H DL Cholesterol is greater than 220 mg/dL. Adults aged 40-75 with LDL 70-189 mg/dL should have their 10 year ASCVD risk estimated with the ACC/AHA ASCVD risk es timator http://tools.acc.org/RSHYS-Cvjd-Ujrnhura r/ Statin should be discussed if risk [...] Organization Address City/State/[place] [address] (ABNORMAL) Hemoglobin A1c (09/10/2017 [...] Mellitus, Diabetes Care 2013; 36: Suppl. 1, S67-74 Est Avg Gluc See note mg/dL [facility] LABORATORY Comment: Estimated Average Glucose not appropriat [...] with hemoglobinopathies. Additional resources are available on [facility] website. [place] WILKS, Orlando J, Jean R, et al. ??Tr anslating the A1C assay into estimated average glucose values. ??Diabetes Care 2008:31(8):4024-6769. Specimen Anatomical Collection Method Collection Time Receive d Time (Source) Location / / Volume Laterality Blood specimen 09/10/2017 9:10 PM 017 (specimen) EST 11:25 PM EST Resulting Agency Comment Spec In Lab Duke Olivier MD CHEMISTRY ORDERABLES Performing Organization Address City/[facility]/ZIP Code Phon e Number [address] TSH (09/10/2017 9:10 PM EST) P athologist Signature TSH 3.16 0.27 - 4.20 [facility] mlU/ML [facility] Specimen Anatomical Collection Method Collection Time Receive d Time (Source) Location / / Volume Laterality Blood specimen 09/10/2017 9:10 PM 017 (specimen) EST 11:24 PM EST Resulting Agency Comment Spec In Lab Duke Olivier MD CHEMISTRY ORDERABLES Performing Organization Address City/[facility]/ZIP Code Phon e Number [address] Magnesium (09/10/2017 9:10 PM EST) P athologist Signature Magnesium 0.88 0.69 - 1.07 [facility] mmol/L [facility] Specimen Anatomical Collection Method Collection Time Receive d Time (Source) Location / / Volume Laterality Blood specimen 09/10/2017 9:10 PM 017 (specimen) EST 11:24 PM EST Resulting Agency Comment Spec In Lab Duke Olivier MD CHEMISTRY ORDERABLES Performing Organization Address City/State/ZIP [place] [address] (ABNORMAL) Comprehensive metabolic panel (non-fasting) (09/10/2017 9:10 PM EST) athologist Signature Glucose Lvl 118 65 - 199 [facility] mg/dL [facility] Comment: Diabetes: >=200 mg/dL plus symp toms BUN 35 (H) 10 - 20 mg/dL [facility] Creatinine 1.53 (H) 0.80 - 1.50 mg/dL [facility] Sodium 140 135 - 145 mmol/L [facility] Potassium 4.6 3.5 - 5.0 mmol/L [facility] Comment: Please note: ??Patients with WBC >100,00 0 may have falsely elevated Potassium levels. ??For accurate Potassium quantif ication in these patients send serum separator tube (gold top) for subsequent determinations. ??Contact the Clinical Chemistry Laboratory if there are any qu estions. Chloride 101 98 - 107 mmol/L [facility] CO2 27 22 - 31 mmol/L [facility] Anion Gap 12 5 - 15 mmol/L [facility] Calcium 9.4 8.5 - 10.5 mg/dL [facility] Total Protein 7.0 6.1 - 8.0 gm/dL [facility] LABORATORY Albumin 4.1 3.2 - 5.2 gm/dL [facility] AST 21 0 - 39 unit/L [facility] ALT 26 0 - 55 unit/L [facility] Alk Phos 84 40 - 120 unit/L [facility] Total Bilirubin 0.5 0.2 - 1.3 mg/dL [facility] Estimated GFR 45 (L) >=60 [facility] Comment: The reported eGFR should be multiplied b y 1.2 for patients. The MDRD is not an appropriate measure o f renal function for patients with body mass extremes or in patients with acute kidney failure. http://[employer]/DHnkdep http://[employer]/DHMCnkf Specimen Anatomical Collection Method Collection Time Receive d Time (Source) Location / / Volume Laterality Blood specimen 09/10/2017 9:10 PM 017 9:19 (specimen) EST PM EST Resulting Agency Comment Spec In Lab Duke Olivier MD CHEMISTRY ORDERABLES Performing Organization Address City/State/ZIP Code Phon e Number [address] (ABNORMAL) pro-Brain Natriuretic Peptide (09/10/2017 9:10 PM EST) P athologist Signature ProBNP 2,704 (H) <=125 [facility] pg/mL [facility] Specimen Anatomical Collection Method Collection Time Receive d Time (Source) Location / / Volume Laterality Blood specimen 09/10/2017 9:10 PM 017 (specimen) EST 11:24 PM EST Resulting Agency Comment Spec In Lab Duke Olivier MD CHEMISTRY ORDERABLES Performing Organization Address City/State/[place] [address] documented in this encounter Visit Diagnoses Not on filedocumented in this encounter Administered Medications Inactive Administered [...] PM EST 6.25 mg clopidogrel (PLAVIX) tablet 75 mg Given 09/15/2017 8:23 AM EST 75 mg 75 mg, Oral, DAILY, First dose on Thu09/13/17 at 0900, Until Discontinued, Routine Given 09/14/2017 10:02 AM EST 75 mg Given 09/13/2017 8:26 AM EST 75 mg dextrose 50% IV syringe 25-50 mL 25-50 mL (12.5-25 g), Intravenous, EVERY 1 HOUR PRN, Starting on Thu09/10/17 at 2200, Until Thu09/15/17 at [...] Oral, 2 TIMES DAILY, First dose on Thu09/10/17 [...] Given 09/13/2017 8:29 AM EST 5 mg fentaNYL 50 mcg/mL multi-dose injection Given 09/14/2017 4:05 PM EST 25 mcg ONCE PRN, Starting on Thu09/14/17 at 1558, Until Thu09/14/17 at 1832, Intra-Operative (Intra-Procedure), Routine Given 09/14/2017 3:58 PM EST 25 mcg glucagon (human recombinant) injection S olR 1 mg 1 mg, Intramuscular, EVERY 1 HOUR PRN, S tarting on Magaly 09/10/17 at 2200, Until Thu09/15/17 [...] the active insulin., Routine heparin (porcine) injection Given 09/14/2017 4:42 PM EST 3,000 Units ONCE PRN, Starting on Thu09/14/17 at 1642, Until Thu09/14/17 at 1832, Cath (Intra-Procedure), Routine insulin glargine VIAL injection 30 Units Given [...] Given 09/13/2017 8:26 AM EST 50 mg midazolam (PF) (VERSED) 1 mg/mL multi-dose Given 09/14/2017 3:58 PM EST 1 mg injection ONCE PRN, Starting on 09/14/17 at 1558, Until Thu09/14/17 at 1832, Cath (Intra-Procedure), Routine niCARdipine (CARDENE) in sodium chloride Given 09/14/2017 4:53 P M EST 200 mcg 0.9% injection ONCE PRN, Starting on 09/14/17 at 1650, Until Thu09/14/17 at 1832, Intra-Operative (Intra-Procedure), Routine Given 09/14/2017 4:50 PM EST 200 mcg nitroGLYcerin (NITROSTAT) SL tablet 0.4 mg Given 09/11/2017 11:41 PM EST 0.4 mg 0.4 mg, Sublingual, EVERY 5 MIN PRN, Starting on Magaly 09/10/17 at 2102, Until Tu09/15/17 at 1611, Chest pain, May repeat every [...] Oral, EVERY 4 HOURS PRN, Starting on Thu09/10/17 at 2200, Until Thu09/15/17 at 1611, Pain, Maximum dose of acetaminophen is 4000 mg from all sources in 24 hours., Routine Given 09/15/2017 6:14 AM EST 1 tablet Given 09/14/2017 10:40 PM EST 1 tablet sodium chloride 0.9 % flush 5 mL [...] Given 09/14/2017 9:30 AM EST 5 mLs spironolactone (ALDACTONE) tablet 25 mg Given 09/15/2017 [...] Until Discontinued, Hold if SBP <90, Routine traZODone (DESYREL) tablet 100 mg Given 09/14/2017 10:40 PM EST 100 mg 100 mg, Oral, NIGHTLY PRN, Starting on Thu09/10/17 at 2200, Until Thu09/15/17 at 1611, Sleep, Routine Given 09/13/2017 9:59 PM EST 100 mg Given 09/12/2017 11:11 PM EST 100 mg documented in this encounter Active and Recently Administered Medications Times are shown in EST. Scheduled Medication Order 09/13/2017 09/14/2017 09/15/2017 allopurinol (ZYLOPRIM) tablet 100 mg 0825 (Given - Provider: Loreto Bunch RN) 0810 (Given - Provider: Zachery Gaspar RN)1546 (MAR Hold - Provider: Admin Adt - Reason: Transfer to a Procedural area)190 (MAR Unhold - Provider: Admin Adt) 0823 (Given - Provider: Mary Ruffin) 100 mg, Oral, DAILY, First dose on Thu11/11/16 at 0900, Until Discontinued, Routine aspirin EC tablet 81 mg 0826 (Given - Provider: Loreto draper RN) 0809 (Given - Provider: Zachery Gaspar, LILIANE)1546 (MAR Hold - Provider: Admin Adt - Reason: Transfer to a Procedural area)190 (MAR Unhold - Provider: Admin Adt) 0828 (Given - Provider: Alexandra Shearer RN) 81 mg, Oral, DAILY, First dose on Thu at 0900, Until Discontinued, Routine atorvastatin (LIPITOR) tablet 80 mg 1724 (Given - Provider: Loreto Bunch RN) 1546 (MAR Hold - Provider: Admin Adt - Reason: Transfer to a Procedural area)1700 (Automatically Held - Provider: Admin Adt)190 (MAR Unhold - Provider: Admin Adt) 80 mg, Oral, EVERY EVENING, First dose o n Thu09/11/17 at 1700, Until Discontinued, Routine budesonide-formoterol (SYMBICORT) 160-4.5 mcg/actuatio n inhaler 2 Inhalation 08 (Given - Provider: Loreto Bunch RN)2012 (Given - Provider: Cherry Nguyễn RN) 08 (Given - Provider: Zachery Gaspar , RN)1546 (MAR Hold - Provider: Admin Adt - Reason: Transfer to a Procedural area)190 (MAR Unhold - Provider: Admin Adt)2032 (Given - Provider: Charisse Rodriguez RN) 08 (Given - Provider: Alexandra Shearer RN) 2 Inhalation, Inhalation, 2 TIMES DAILY, First dose on Thu09/10/17 at 2300, Until Discontinued, Routine buPROPion (WELLBUTRIN SR) SR tablet 100 mg 08 (Given - Provider: Loreto Bunch RN) 08 (Given - Provider: Zachery Gaspar , LILIANE)154 (MAR Hold - Provider: Admin Adt - Reason: Transfer to a Procedural area)1900 (MAR Unhold - Provider: Admin Adt) 0824 (Given - Provider: Mary Ruffin) 100 mg, Oral, EVERY MORNING, First dose on Thu09/11/17 at 0900, Until Discontinued, DO NOT CRUSH OR OPEN, Routine carvedilol (COREG) tablet 6.25 mg 08 (Given - Provid er: Loreto Bunch RN)1724 (Given - Provider: Loreto Bunch RN) 0810 (Given - Provider: Zachery Gaspar , LILIANE)154 (MAR Hold - Provider: Admin Adt - Reason: Transfer to a Procedural area)1700 (Automatically Held - Provider: Admin Adt)190 (MAR Unhold - Provider: Admin Adt) 0823 (Given - Provider: Mary Ruffin) 6.25 mg, Oral, 2 TIMES DAILY WITH MEALS, First dose on Thu09/11/17 at 0800, Until Discontinued, Routine clopidogrel (PLAVIX) tablet 75 mg 08 (Given - Provider: Kayden Bunch RN) 1002 (Given - Provider: Zachery Gaspar RN)1546 (MAR Hold - Provider: Admin Adt - Reason: Transfer to a Procedural area)190 (MAR Unhold - Provider: Admin Adt) 0823 (Given - Provider: Mary Ruffin) 75 mg, Oral, DAILY, First dose on Thu at 0900, Until Discontinued, Routine docusate sodium (COLACE) capsule 100 mg 08 (Given - Provider: Loreto Bunch RN)2012 (Given - Provider: Cherry Nguyễn RN) 08 (Given - Provider: Zachery Gaspar, RN)154 (DEC Hold - Provider: Admin Adt - Reason: Transfer to a Procedural area)1900 (DEC Unhold - Provider: Admin Adt)2032 (Given - Provider: Charisse Rodriguez RN) 0900 (Not Given - Provider: Alexandra lopez RN - Reason: Patient/family refused) 100 mg, Oral, 2 TIMES DAILY, First dose on Thu09/11/17 at 1115, Until Discontinued, Routine DULoxetine (CYMBALTA) capsule 60 mg 08 (Given - Prov ider: Loreto Bunch RN)2012 (Given - Provider: Cherry Nguyễn RN) 08 (Given - Provider: Zachery Gaspar RN)154 ([facility] Hold - Provider: Admin Adt - Reason: Transfer to a Procedural area)1900 ([facility] Unhold - Provider: Admin Adt)2032 (Given - Provider: Charisse Rodriguez, LILIANE) 08 (Given - Provider: Mary Ruffin) 60 mg, Oral, 2 TIMES DAILY, First dose o n Magaly 09/10/17 at 2300, Until Discontinued, Routine felodipine (PLENDIL) tablet 5 mg 08 (Given - Provider: Christina Bunch RN) 0805 (Given - Provider: Zachery Gaspar, LILIANE)154 (DEC Hold - Provider: Admin Adt - Reason: Transfer to a Procedural area)1900 ([facility] Unhold - Provider: Admin Adt) 08 (Given - Provider: Alexandra Shearer RN) 5 mg, Oral, EVERY MORNING, First dose on Thu09/11/17 at 0900, Until Discontinued insulin glargine VIAL injection 30 Units 0829 (Given - Provider: Loreto Bunch RN) 0802 (Given - Provider: Zachery Gaspar RN)154 (DEC Hold - Provider: Admin Adt - Reason: Transfer to a Procedural area)1900 (DEC Unhold - Provider: Admin Adt) 0822 (Given - Provider: Mary Ruffin) 30 Units, Subcutaneous, EVERY MORNING, F irst dose on Thu09/11/17 at 0700, Until Discontinued, Routine insulin lispro (humaLOG) VIAL injection 3-12 Units([employer]) 0000 (Not Given - Provider: [...] Provider: Zachery gonzalez RN - Reason: NPO)1546 (DEC Hold - Provider: Admin Adt - Reason: Transfer to a Procedural area)1600 (Automatically Held - Provider: Admin Adt)1901 (DEC Unhold - Provider: Admin Adt) 1220 (Given [...] Nguyễn RN) 2032 (Given - Provider: Charisse Rodriguez, LILIANE) less than 240 after two hours, give [...] 0810 (Given - Provider: Zachery Gaspar , RN)1546 (DEC Hold - Provider: Admin Adt - Reason: Transfer to a Procedural area)190 (DEC Unhold - Provider: Admin Adt) 0824 (Given - Provider: Mary Ruffin) 120 mg, Oral, DAILY, First dose on Thu11/11/16 at 0900, Until Discontinued, DO NOT CRUSH OR OPEN, Routine losartan (COZAAR) tablet 50 mg 08 (Given - Provider: Li Bunch RN) 0808 (Given - Provider: Zachery Gaspar, LILIANE)1546 (DEC Hold - Provider: Admin Adt - Reason: Transfer to a Procedural area)190 (MAR Unhold - Provider: Admin Adt) 0824 (Given - Provider: Alexandra Shearer RN) 50 mg, Oral, DAILY, First dose on Thu at 1115, Until Discontinued, Please hold if SBP is <110, Routine potassium chloride (K-DUR/KLOR-CON) extended release t ablet 40 mEq (COMPLETED) 1830 (Given - Provider: Loreto Bunch RN) 40 mEq, Oral, ONCE, 1 dose, 09/13/17 at 1830, Routine potassium chloride (K-DUR/KLOR-CON) extended release tablet 40 mEq (COMPLETED) 1003 (Given - Provider: Mary Ruffin) 40 mEq, Oral, ONCE, 1 dose, 09/15/17 at 0815, Routine sodium chloride 0.9 % flush 5 mL 0831 (Given - Provide r: Loreto Bunch RN)2016 (Given - Provider: Cherry Nguyễn RN) 0900 (Given - Provider: Zachery Gaspar, LILIANE)1546 ([facility] Hold - Provider: Admin Adt - Reason: Transfer to a Procedural area)1900 ([facility] Unhold - Provider: Admin Adt)2157 (Given - Provider: Melody Salamanca RN) 0900 (Not Given - Provider: Alexandra lopez RN - Reason: Order parameters not met) 5 mL, Intravenous, 2 TIMES DAILY, First dose on Magaly 09/10/17 at 2130, Until Discontinued, Routine sodium chloride 0.9 % flush 5 mL 1159 (Given - Provide r: Loreto Bunch RN)2129 (Not Given - Provider: Cherry Nguyễn RN - Reason: See comment - Comment: infusing) 0930 (Given - Provider: Zachery Gaspar RN)154 ([facility] Hold - Provider: Admin Adt - Reason: Transfer to a Procedural area)1900 ([facility] Unhold - Provider: Admin Adt)2157 (Given - Provider: Melody Salamanca RN) 0830 (Given - Provider: Alexandra Shearer RN) 5 mL, Intravenous, EVERY 12 HOURS, First dose on Magaly 09/10/17 at 2130, Until Discontinued, Routine spironolactone (ALDACTONE) tablet 25 mg 0826 (Given - Provider: Loreto Bunch RN) 0808 (Given - Provider: Zachery Gaspar RN)154 ([facility] Hold - Provider: Admin Adt - Reason: Transfer to a Procedural area)1900 ([facility] Unhold - Provider: Admin Adt) 0824 (Given - Provider: Mary Ruffin) 25 mg, Oral, DAILY, First dose on Thu at 1115, Until Discontinued, Routine terazosin (HYTRIN) capsule 4 mg 2013 (Given - Provider : Cherry Nguyễn, LILIANE) 154 ([facility] Hold - Provider: Admin Adt - R cal: Transfer to a Procedural area)1900 ([facility] Unhold - Provider: Admin Adt)2032 (Given - Provider: Charisse Rodriguez RN) 4 mg, Oral, NIGHTLY, First dose on Magaly 1 11/10/16 at 2300, Until Discontinued, Routine tiotropium (SPIRIVA) inhalation capsule with device 18 mcg 0827 (Given - Provider: Loreto Bunch RN) 0818 (Given - Provider: Zachery Gaspar , RN)1546 (MAR Hold - Provider: Admin Adt - Reason: Transfer to a Procedural area)190 (DEC Unhold - Provider: Admin Adt) 1003 (Given - Provider: Mary Ruffin) 18 mcg, Inhalation, DAILY, First dose on Thu09/11/17 at 0900, Until Discontinued, Routine torsemide (DEMADEX) tablet 40 mg 1546 (M AR Hold - Provider: Admin Adt - Reason: Transfer to a Procedural area)1700 (Automatically Held - Provider: Admin Adt)1901 (MAR Unhold - Provider: Admin Adt) 0824 (Given - Provider: Alexandra Shearer, LILIANE) 40 mg, Oral, 2 TIMES DAILY, First dose o n 09/14/17 at 1700, Until Discontinued, Hold if SBP <90, Routine torsemide (DEMADEX) tablet 60 mg (CANCELED) 1231 (Give n - Provider: Loreto Bunch RN)1724 (Given - Provider: Loreto Bunch RN) 0809 (Not Given - Provider: Zachery Gaspar, LILIANE - Reason: See comment - Comment: being [...] Bunch RN)2112 (New Bag - Provider: Cherry Nguyễn RN) 1005 (New Bag - Provider: Zachery caldwell, LILIANE)1546 (MAR Hold - Provider: Admin Adt - Reason: Transfer to a Procedural area)190 (DEC Unhold - Provider: Admin Adt) 0-5,000 [...] Protocol, Routine sodium chloride 0.9% infusion (CANCELED) 0613 (New Bag - Provider: Cherry Nguyễn RN) 50 mL/hr, at 50 mL/hr, Intravenous, CONT INUOUS, Starting Thu09/14/17 at 0600, Until Thu09/14/17 at 1901, Cath (Day of Procedure) sodium chloride 0.9% infusion () 1740 (New Bag - Provider: Janet Mathis RN)2104 (Stopped - Provider: Joshua Mohamud RN) 100 mL/hr, at 100 mL/hr, Intravenous, CO NTINUOUS, Starting Thu09/14/17 at 1745, Until Thu09/14/17 at 2144, Recovery (Recovery-Hospital Unit) PRN Medication Order 09/13/2017 09/14/2017 09/15/2017 dextrose 50% IV syringe 25-50 mL(Linked Group 2) 1546 (DEC Hold - Provider: Admin Adt - Reason: Transfer to a Procedural area)1901 (MAR Unhold - Provider: Admin Adt) 25-50 mL (12.5-25 g), Intravenous, EVERY 1 HOUR PRN, Starting Thu09/10/17 at 2200, Until Thu09/15/17 at 1611, [...] (CANCELED) 1558 (Given - Provider: Gurinder Mathis, RN)1605 (Given - Provider: Gurinder Mathis, RN) ONCE PRN, Starting Thu09/14/17 at 1558, Until Thu09/14/17 at 1832, Intra- Operative (Intra-Procedure), Routine glucagon (human recombinant) injection SolR 1 mg(Linked Grou p 2) 1546 (DEC Hold - Provider: Admin Adt - Reason: Transfer to a Procedural area)1901 (DEC Unhold - Provider: Admin Adt) 1 mg, Intramuscular, EVERY 1 HOUR PRN, S tarting Thu09/10/17 at 2200, Until Thu09/15/17 at 1611, [...] (CANCELED) 0 858 (Given - Provider: Loreto Bunch RN)1605 (Given - Provider: Loreto Bunch RN) 1546 ([facility] Hold - Provider: Admin Adt - Reason: Transfer to a Procedural area)1900 (DEC Unhold - Provider: Admin Adt) 0-4,000 Units, Intravenous, BOLUS PER LANDEN PROTOCOL, Starting 09/12/17 at 1044, Until [...] Mathis RN) ONCE PRN, Starting Thu09/14/17 at 1642, Until Thu09/14/17 at 1832, Cath (Intra-Procedure), Routine ipratropium-albuterol (DUONEB) 0.5 mg-3 mg(2.5 mg base)/3 mL nebulizer solution 3 mL 154 ([facility] Hold - Provider: A dmin Adt - Reason: Transfer to a Procedural area)1900 ([facility] Unhold - Provider: Admin Adt) 3 mL, Nebulization, 4 TIMES DAILY PRN, S tarting Magaly 09/10/17 at 2200, Until Thu09/15/17 at 1611, Wheezing, shortness of breath, Routine lidocaine (XYLOCAINE) 10 mg/mL (1 %) injection 3 mg 154 ([facility] Hold - Provider: Admin Adt - Reason: Transfer to a Procedural area)1900 ([facility] Unhold - Provider: Admin Adt) 3 mg [...] in sodium chloride 0.9% injection (CAN CELED) 165 (Given - Provider: Anupama Koch MD)165 (Given - Provider: Anupama Koch MD) ONCE PRN, Starting Thu09/14/17 at 1650, Until Thu09/14/17 at 1832, Intra- Operative (Intra-Procedure), Routine nitroGLYcerin (NITROSTAT) SL tablet 0.4 mg 154 (DEC Hold - Provider: Admin Adt - Reason: Transfer to a Procedural area)1900 ([facility] Unhold - Provider: Admin Adt) 0.4 mg, Sublingual, EVERY 5 MIN PRN, Sta rting Thu09/10/17 at 2102, Until Thu09/15/17 at 1611, Chest [...] (PERCOCET) 5-325 mg per tablet 1 tablet 09 (Given - Provider: Loreto Bunch, RN)2101 (Given - Provider: Cherry Nguyễn, LILIANE) 09 (Given - Provider: Zachery Gaspar, RN)1524 (Given - Provider: Zachery Gaspar, RN)1546 (DEC Hold - Provider: Admin Adt - Reason: Transfer to a Procedural area)190 (MAR Unhold - Provider: Admin Adt) 0614 (Given - Provider: Melody Salamanca, LILIANE)1316 (Given - Provider: Alexandra Shearer, LILIANE) 1 tablet, Oral, EVERY 4 HOURS PRN, Start ing Thu09/10/17 at 2200, Until Thu09/15/17 at 1611, Pain, Maximum dose of acetaminophen is 4000 mg from all sources in 24 hours., Routine 2240 (Given - Provider: Yony Salamanca RN) sodium chloride 0.9 % flush 5-20 mL 154 ([facility] Hold - Provider: Admin Adt - Reason: Transfer to a Procedural area)190 ([facility] Unhold - Provider: Admin Adt) 5-20 mL, Intravenous, EVERY 1 MIN PRN, S tarting Thu09/10/17 at 2102, Until Thu09/15/17 at 1611, flush, Flush pertains to all indwelling lines. Flush per protocol found in the job aid using the link provided on this medication record., Routine sodium chloride 0.9 % flush 5-20 mL 154 ([facility] Hold - Provider: Admin Adt - Reason: Transfer to a Procedural area)190 ([facility] Unhold - Provider: Admin Adt) 5-20 mL, Intravenous, EVERY 1 MIN PRN, S tarting Thu09/10/17 at 2102, Until Thu09/15/17 at 1611, flush, Flush pertains to all indwelling lines. Flush per protocol found in the job aid using the link provided on this medication record., Routine traZODone (DESYREL) tablet 100 mg 2158 (Given - Provid er: Cherry Nguyễn RN) 154 ([facility] Hold - Provider: Admin Adt - R cal: Transfer to a Procedural area)190 ([facility] Unhold - Provider: Admin Adt)2240 (Given - Provider: Melody Salamanca RN) 100 mg, Oral, NIGHTLY PRN, Starting Thu09/10/17 at 2200, Until Thu09/15/17 at 1611, Sleep, Routine Linked Groups Order [...] S tarting Magaly 09/10/17 at 2200, Until 09/15/17 at 1611, Low blood sugar
For BG [...]
Routine documented in this encounter Care Teams Moving Consultant Relationship Specialty Start Date End Date Edil Schmidt, COMPONENT OVERHAUL OPERATOR PCP - General 05/06/12 EMERGENCY DEPT [address] [place] [address] [place] [address] documented as of this encounter
--- OUTSIDE RECORDS SUMMARY | 2022-06-15 00:22 | XMS_ITS | Encounter Summary ---
:1945 [place] [address] Care Team Providers Name Role Phone Edil Schmidt APRN Primary Care Provider Encounter Details Date Type Department Care Team Description 12/10/2014 Procedure visit Sleep Center at [facility] Yee MD Central sleep apnea; [facility] Obstructive sleep apnea (shelley lt) (pediatric) [address] [place] SLEEP DISORDERS [address] CENTER [phone] [place], [place] [address] Social History Tobacco Use Types Packs/Day Years Used Date Former Smoker Quit: 10/26/18 92 Alcohol Use Standard Drinks/Week Comments No 0 (1 standard drink = 0.6 oz pure alcoho l) Sex Assigned at Date Recorded Not on file documented as of this encounter Last Filed Vital Signs Vital Sign Reading Time Taken Comments Blood Pressure 201/78 12/15/2014 1:36 PM EST Pulse 96 12/15/2014 1:36 PM EST Temperature - - Respiratory Rate - - Oxygen Saturation - - Inhaled Oxygen Concentration - - Weight 123.8 kg (273 lb) 12/15/2014 1:36 PM EST Height 182.9 cm (6') 12/15/2014 1:36 PM EST Body Mass Index 37.03 12/15/2014 1:36 PM EST documented in this encounter Progress Notes Timur Yee MD - 12/15/2014 1:36 PM EST Images from the original note were not included. REPORT OF POSITIVE PRESSURE TITRATION History Of Present Illness: Napoleon Jiménez is a 69 y.o. male who presents for a polysomnogram. Polysomnography: The patient's sleep was evaluated for one night at the [facility]. Sleep was monitored in accordance with recommended AASM guidelines. The recording also included oral/nasal airflow, chest and abdominal respiratory effort, nasal pressure, single channel EKG, intercostal EMG, bilateral tibialis EMG, and oxygen saturation (by pulse oximeter). Type of Positive Pressure Utilized: BIPAP-ASV Comment: - Sleep/EEG: Sleep efficiency: markedly reduced at 8%; minimal, fragmented sleep present. Sleep architecture: elevated N1 REM Observed: no Supine position observed: yes - Respiratory: BiPAP-ASV initiated - patient had difficulty tolerating minimal expiratory pressures.Initial settings were EPAPmin 4cm, EPAPmax 15cm, PSmin 0, PSmax 15cm, Pmax 25, rate auto. Minimal consolidated sleep was present (approximately 10 minutes). During this time, there were ongoing hypopneas. Mask leak was also intermittently markedly elevated despite numerous mask changes and use of a chin strap. No effective pressure settings or mask interface identified. SaO2 during sleep variable and remained < 90% during the 10min period of sleep Minimum SaO2: 81% Average TCO2 during sleep 39.5 Torr TCO2 during wakefulness ranged from 34 Torr to 39 Torr - EKG: Sinus bradycardia with occasional premature ventricular contractions. - EMG: Unremarkable Assessment: .Napoleon Jiménez is a 69 y.o. male whose polysomnogram did not reveal an effective PAP pressure. Very minimal sleep was observed during the attempted BiPAP-ASV titration. The patient had pressure intolerance and significant difficulty finding a mask interface that fit well. It is very diffi cult to comment on sleep parameters, given the very limited sleep observed however, oxygen saturations did appear to decrease during sleep. TCO2 did not demonstrate hypoventilation. The [facility]: Per the [facility] provider's notes, the patient had a diagnostic PSG at an outside sleep center that demonstrated central and obstructive sleep apnea. The sleep report was not availablefor review, although the [facility] provider's summary indicated that the central component may have been more prominent than the obstructive component. The patient has multiple potential causes for central sleep apnea identified in the accompanying records, including a history of CHF and use of methadone. I cannot provide empiric ASV settings based on this study, and the patient may also require supplemental oxygen with PAP. Also of note, the patient's blood pressure was quite elevated upon arrival to the sleep center and he reported chest pain, for which he took multiple sublingual nitroglycerins with resolution of the pain. He reported that this was typical for him and he felt at his usual state of health when the studybegan. Recommendations: 1. Can consider another attempt at an ASV titration. 2. Alternatively, could consider use of supplemental oxygen as treatment for central sleep apnea if patient has known history of advanced CHF. Please note however, that supplemental oxygen would not treat underlying obstructive sleep apnea and is not clear that it is an effective management strategy for central sleep apnea related to opiate usage. I would strongly recommend that if a a trial of supplemental oxygen therapy is pursued, it be performed in a PSG setting to assess whether the central apneas resolve and assess oxygen needs. I would also recommend sleeping with head of bed elevated, as this may help alleviate obstructive sleep apnea events. 3. Message left with referring provider, Dr. Benjamin Barker, to relay results directly, given severity of sleep-disordered breathing and cardiovascular issues upon presentation to sleep center. 4. Follow up care arranged through the [facility]. [facility] SLEEP DISORDERS CENTER CPAP/BILEVEL REPORT Patient Name: Napoleon Jiménez Study Type: ASV with TCO2 Sex: Male Study Date: 12/10/2014 Date of : 1945 Hospital #: [id number] Age: 69 Referring Physician: Height: 6' Sleep Specialist: TIMUR YEE M.D. Weight: 273 Recording Tech: ARNALDO LayneI: 37.0 Scoring Tech: NIRANJAN ZAPATA SCORING TECHNOLOGIST COMMENTS: ECG:NSR Ectopy: Description of study: CPAP/Bilevel Therapeutic Polysomnography was performed utilizing frontal, central & occipital EEG, EOG, submentalis EMG, oronasal thermocouple, nasal pressure, ECG, thoracic and abdominal inductance plethysmography, right and left anterior tibialis EMG, snore sensor, and pulse oximetry according to AASM established guidelines. Therapeutic Analysis Sleep Architecture Therapeutic Start Time Lights Off: 23:45:03 Total Number of Stage Shifts: 70 Therapeutic End Time Lights On: 06:18:34 Number of Transitions to Stage 1: 13 Total Recording Time 393.5 minutes Total Number of Awakenings: 21 Total Sleep Time (TST): 29.5 minutes Number of REM Periods: 0 Sleep Efficiency: 7.5% REM Latency: - minutes Sleep Onset: 37.0 minutes REM Latency (minus Wake time): - minutes Stage Results Time (min.) % TST Latency (min.) Wake (after sleep onset): 327.0 - - N1: 7.0 23.7 32.0 N2: 12.5 42.4 0.0 N3: 10.0 33.9 15.5 REM: 0.0 0.0 - Spontaneous Arousals* Total NREM REM Count: 9 9 0 Index (events/hr): 18.3 18.3 - * (EEG Arousal activity not associated with Respiratory or PLM events). Respiratory Events Apneas Central Apnea Obstructive Apnea Mixed Apnea Count: 16 0 1 Index (events/hr.): 32.5 0.0 2.0 Mean Duration (sec.): 19 0 14 Longest Event (sec.): 27.1 0 14.2 REM Count: 0 0 0 NREM Count: 16 0 1 REM Index: 0.0 0.0 0.0 NREM Index 32.5 0.0 2.0 Supine Index 32.5 0.0 2.0 Non-supine Index 0.0 0.0 0.0 Hypopneas and RERAs Hypopnea 4% desat Hypopnea 3% or arousal RERA Count: 31 3 0 Index (events/hr.): 63.1 6.1 0.0 Mean Duration (sec.): 24.4 20.6 0 Longest Event (sec.): 35.0 24.3 0 REM Count: 0 0 0 NREM Count: 31 3 0 REM Index: - - - NREM Index: 63.1 6.1 0.0 Supine Count: 31 3 0 Non-Supine Count: 0 0 0 Supine Index: 63.1 6.1 0.0 Non-supine Index: - - - Apneas & Hypopneas (by Body-Position) Total Supine Non-Supine Count: 51 51 0 Index (events/hr): 103.7 103.7 0.0 * Results include all hypopneas and apneas. Apneas & Hypopneas (by Body-Position) Total Supine Non-Supine Count: 48 48 0 Index (events/hr): 97.6 97.6 0 *Results include only hypopneas with desaturations ? 4% and apneas. RDI (by Body-Position) Total Supine Non-Supine Count: 51 51 0 Index (events/hr): 103.7 103.7 - * Results include all hypopneas, apneas and RERAs. Taurus Sunshine Breathing (% of TST) 0.0 Body Position by Time Non-Supine Supine Sleep (in minutes) 0.0 29.5 REM (in minutes) 0.0 0.0 NREM (in minutes) 0.0 29.5 Periodic Limb Movements(by Sleep Stages) Total PLMs PLMs w/ Arousals Count Index Count Index Total Sleep: 0 0.0 0 0.0 REM: 0 0.0 0 - NREM: 0 0.0 0 0.0 Wake (after Lights Off): 0 0.0 0 0.0 Oxygen Saturation NREM REM TST Mean SaO2%: 91 - 91 Min. SaO2%: 81 - 81 % Time of SaO2 in range Awake NREM REM Total Sleep 90 - 100%: 80 61 0 61 80 - 89%: 5 32 0 32 70 - 79%: 0 0 0 0 60 - 69%: 0 0 0 0 50 - 59%: 0 0 0 0 < 50%: 0 0 0 0 Total Time (min) SaO2 < 90%: 32.1 11.3 0.0 11.3 Total Time (min) SaO2 < 89%: 22.9 9.7 0.0 9.7 Total Time (min) SaO2 < 88%: 16.8 8.2 0.0 8.2 TcCO2 REM NREM Total Maximum TCO2 (Torr): - 39.5 39.5 Average TCO2 (Torr): - 37.5 37.5 REM NREM Total Duration (mins) Duration (mins) Cumulated % Duration (mins) Cumulated % Duration (mins) Cumulated % <30 323.9 0.0 0 0.0 0.0 0.0 0.0 ?30, ?40 312.2 0.0 0 29.4 99.8 29.4 99.8 ?40, ?47 11.8 0.0 0 0.0 0.0 0.0 0.0 ?47, ?50 0.0 0.0 0 0.0 0.0 0.0 0.0 ?50, ?55 0.0 0.0 0 0.0 0.0 0.0 0.0 ?55, ?65 0.0 0.0 0 0.0 0.0 0.0 0.0 ?65, ?75 0.0 0.0 0 0.0 0.0 0.0 0.0 ?75 0.0 0.0 0 0.0 0.0 0.0 0.0 Heart Rate NREM REM TST Mean HR (bpm): 48 0 48 Min. HR (bpm): 42 - 42 Max. HR (bpm): 57 - 57 A. Titration Analysis Chart (Duration) Pressure Level (cm H2O) Time in Minutes TST REM NREM Supine Non-Supine REM Supine 0/0/0 29 0 29 29 0 0 B. Titration Analysis Chart (Oxygen Saturation) Pressure Level Mean SaO2% Min SaO2% 0/0/0 91 81 C. Titration Analysis Chart (Respiratory) Pressure Level Respiratory (number) Time in Minutes Respiratory (index) cm H2O Central Apneas Obstructive Apneas Mixed Apneas Hypopnea (4%) Hypopneas (3% or Arousal) RERA AHI* NREM AHI REM AHI RDI Supine AHI* NonSupine AHI 0/0/0 16 0 1 31 34 0 103.7 103.7 0.0 103.7 103.7 0.0 - - - *Includes all hypopneas and apneas Includes all hypopneas, apneas and RERAs CPAP/BILEVEL TREATMENT REPORT CPAP/Bilevel PLM Body Position documented in this encounter Plan of Treatment Not on filedocumented as of this encounter Visit Diagnoses Diagnosis Central sleep apnea Unspecified sleep apnea Obstructive sleep apnea (adult) (pediatr ic) documented in this encounter Care Teams Title Inspector Relationship Specialty Start Date End Date Edil Schmidt APRN PCP - General 05/06/12 EMERGENCY DEPT [address] [place] [address] [place] [address] documented as of this encounter
[2022-06-15] MEDS: Furosemide 100 MG/10 ML VIAL 80 MG IVP (00:28)
--- OUTSIDE RECORDS SUMMARY | 2022-06-15 00:47 | XMS_ITS | Encounter Summary ---
:1945 Author Organization [facility] Address [address] [place] [address] Care Team Providers Name Role Phone Edil Schmidt APRN Primary Care Provider Reason for Visit Reason Onset Date Comments Other 09/25/2017 has not received med s Encounter Details Date Type Department Care Team Description 09/25/2017 Telephone Cardiology at [facility] Mariana Bruno MD Other (has not received [facility] med s) [place] [address] [place] [address] [phone] (Wo rk) Social History Tobacco Use Types [...] on filedocumented in this encounter Care Teams Forming Machine Upkeep Mechanic Helper Relationship Specialty Start Date End Date Edil Schmidt APRN PCP - General 05/06/12 EMERGENCY DEPT [address] [place] [address] [place] [address] documented as of this encounter
--- OUTSIDE RECORDS SUMMARY | 2022-06-15 00:47 | XMS_ITS | Encounter Summary ---
:1945 [place] [address] Care Team Providers Name Role Phone Edil Schmidt APRN Primary Care Provider Encounter Details Date Type Department Care Team Description 09/24/2018 Telephone Gastroenterology at [facility] Alex Brewer MD [facility] [place] [address] GASTROENTEROLOGY DEPT [phone] [place], [place] [address] (Wo rk) Social History Tobacco Use Types Packs/Day Years Used Date Former Smoker Cigarettes Quit: 10/26/18 92 Smokeless Tobacco: Never Used Alcohol Use Standard Drinks/Week Comments No 0 (1 standard drink = 0.6 oz pure alcoho l) Sex Assigned at Date Recorded Not on file documented as of this encounter Miscellaneous Notes Telephone Encounter - Alex Brewer MD - 09/24/2018 4:05 PM EST Transfer Center Call: I received a call from Dr. Estrella at [facility]. 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 GI pathogen PCR including C.diff was negative. Got IVF, hgb stable, lactate normal, feeling better, tolerating PO, no fevers, no WBC. They are planning to discharge him today and just want further recs. We do not know when his last colonoscopy was. Presentation fits with ischemic colitis. Needs non urgent colonoscopy if has not had one recently. They will arrange for him. This is not an official consult, as my recommendations are limited by my inability to interview and examine the patient as well as personally review the medical record, imaging, and laboratory findings. documented in this encounter Plan of Treatment Not on filedocumented as of this encounter Visit Diagnoses Not on filedocumented in this encounter Care Teams Bung Driver Relationship Specialty Start Date End Date Edil Schmidt APRN PCP - General 05/06/12 EMERGENCY DEPT [address] [place] [address] [place] [address] documented as of this encounter
--- OUTSIDE RECORDS SUMMARY | 2022-06-15 00:47 | XMS_ITS | Encounter Summary ---
:1945 Author Organization [facility] [place] [address] Care Team Providers Name Role Phone Edil Schmidt APRN Primary Care Provider Encounter Details Date Type Department Care Team Description 03/21/2022 Orders Only Lab [facility] [place] [facility] Gurwinder Martinez, [facility] [address] [place] [address] [place] [address] (Wo rk) Social History Tobacco Use Types [...] Component Value Ref Test Analysis Performed At [facility] Range Method Time Signature Bacterial Cutibacterium GHADA Identification acnes MICHAELA (Propionibacteri [facility] acnes) [facility] isolated (A) LABORATORY Organism Cutibacterium GHADA acnes MICHAELA (Propionibacteri [facility] acnes) (A) HOSPITAL LABORATORY Specimen Anatomical Collection Method Collection Time Receive d Time (Source) Location / / Volume Laterality Isolate TOE / 03/21/2022 10:19 03/31/20 22 2:04 Unknown AM EDT PM EDT Comment: [place] 22 1127, RT GREAT TOE Resulting Agency [...] Organization Address City/State/[place] [address] documented in this encounter Visit Diagnoses Not on filedocumented in this encounter Care Teams Cover Cutter Machine Relationship Specialty Start Date End Date Edil Schmidt APRN PCP - General 05/06/12 EMERGENCY DEPT [address] [place] [address] [place] [address] documented as of this encounter
--- OUTSIDE RECORDS SUMMARY | 2022-06-15 00:47 | XMS_ITS | Clinical Summary ---
:1945 Author Organization [facility] [place] [address] Care Team Providers Name Role Phone Edil [...] tive (NITROLINGUAL) 400 under the tongue mcg/spray [place], every 5 minutes Non-Aerosol as needed for [...] add itional stent placed. e. Heart [place], [facility]: 20% distal LM, mild diffuse proximal [...] 1945 ? Height: 183 cm ? Account: [id number] Age: 76 yrs ? Weight: 125 kg Gender: Male ?BSA: 2.4 m2 Ordering Physician: EDGAR ZAPATA Referring Physician: EDGAR ZAPATA Performed By: [place] Reason For Study: Congestive heart failu re Exam Location: [facility]. Interpretation Summary Technically limited study. Left [...] urgitation. No comparison study is available. Procedure [id number]. Suboptimal quality. Left Ventricle Left ventricle is [...] Location: : 1945 Height: 183 cm Account: [id number] Age: 76 yrs Weight: 125 kg Gender: Male BSA: 2.4 m2 Ordering Physician: EDGAR ZAPATA Referring Physician: EDGAR ZAPATA Performed By: KASHIF Reason For Study: Congestive heart failu re Exam Location: [facility]. Interpretation Summary Technically limited study. Left [...] urgitation. No comparison study is available. Procedure [id number]. Suboptimal quality. Left Ventricle Left ventricle is [...] Component Value Ref Test Analysis Performed At [facility] gist Range Method Time Signature Bacterial Cutibacterium GHADA [place] acnes MICHAELA (Propionibacteri [facility] acnes) HOSPITAL isolated (A) LABORATORY Organism Cutibacterium GHADA acnes MICHAELA (Propionibacteri [facility] acnes) (A) HOSPITAL LABORATORY Specimen Anatomical Collection Method Collection Time Receive d Time (Source) Location / / Volume Laterality Isolate TOE STRUCTURE / 03/21/2022 10:19 06 22 2:04 Unknown AM EDT PM EDT Comment: [place] 22 1127, RT GREAT TOE Resulting Agency [...] Address City/State/ZIP [place] [address] from Last 3 Months Insurance Payer Benefit Plan / Subscriber ID Effective Dates Phone Addre ss Type Group MEDICARE MEDICARE PART A [id number] 2008-Prese [phone] [id number] [place] [address] [employer] OPTUM [place] [employer]UM [id number] 2021-Presen [phone] [address] [address] Advance Directives Documents on File Type Date Recorded 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 Care Teams Bilingual Sales Representative Relationship Specialty Start Date End Date Edil Schmidt APRN PCP - General 05/06/12 EMERGENCY DEPT [address] [place] [address] [place] [address]
--- OUTSIDE RECORDS SUMMARY | 2022-06-15 00:47 | XMS_ITS | Encounter Summary ---
:1945 [place] [address] Care Team Providers Name Role Phone Edil Schmidt APRN Primary Care Provider Reason for Visit Reason Onset Date Comments Medication Refill 09/28/2017 Encounter Details Date Type Department Care Team Description 09/28/2017 Refill Cardiology at [facility] Mariana Bruno MD Medication Refill [facility] [place] [address] [place], [place] [id number] [phone] (Wo rk) Social History Tobacco Use Types [...] from patient who was admitted to [facility] on 09/10 and Discharged on 09/15/17. documented [...] type documented in this encounter Care Teams Woodwork Teacher Relationship Specialty Start Date End Date Edil Schmidt, PILOT [employer] YACHT PCP - General 05/06/12 EMERGENCY DEPT [address] [place] [address] [place] [address] documented as of this encounter
--- OUTSIDE RECORDS SUMMARY | 2022-06-15 00:47 | XMS_ITS | Encounter Summary ---
:1945 Author Organization [place] [address] Care Team Providers Name Role Phone Edil Schmidt APRN Primary Care Provider Encounter Details Date Type Department Care Team Description 10/11/2017 Telephone Cardiology Shayan Germain MD [facility] [place] [address] CARDIOLOGY DEPT [phone] [place], [place] [address] (Wo rk) Social History Tobacco [...] Initial contact time: 11:17 Referring Provider: Harsh Lgiht MD Patient Location: [facility] Reason for presentation at OSH: Patient [...] or examined this patient. Shayan Germain MD Drywaller [id number] documented in this encounter Plan of Treatment Not on filedocumented as of this encounter Visit Diagnoses Not on filedocumented in this encounter Care Teams Administrative Underwriter Relationship Specialty Start Date End Date Edil Schmidt, MESFIN PCP - General 05/06/12 EMERGENCY DEPT [address] [place] [address] [place] [address] documented as of this encounter
--- OUTSIDE RECORDS SUMMARY | 2022-06-15 00:47 | XMS_ITS | Encounter Summary ---
:1945 Author Organization [facility] [place] [address] Care Team Providers Name Role Phone Edil Schmidt APRN Primary Care Provider Reason for Referral Diagnostic Test (Routine) - Closed Specialty Diagnoses / Procedures Referred By Contact Refer red To Contact Cardiology Diagnoses Congestive heart failure, unspecified HF chronicity, unspecified heart failure type Edgar Zapata MD [facility] Non-Inv Card Lab Procedures Mobile Echo [address] [facility] [id number] [place] [phone] Fax: Referral ID Status Reason Start Date Expiration Date Visits V isits Requested Authorized [id number] Closed Specialty 05/28/2022 05/28/2023 1 1 Service Requested Reason for Visit Diagnostic Test (Routine) - Closed Specialty Diagnoses / Procedures Referred By Contact Refer red To Contact Cardiology Diagnoses Congestive heart failure, unspecified HF chronicity, unspecified heart failure type Edgar Zapata MD [facility] Non-Inv Card Lab Procedures Mobile Echo [address] [facility] [id number] [place] [phone] Fax: Referral ID Status Reason Start Date Expiration Date Visits V isits Requested Authorized [id number] Closed Specialty 05/28/2022 05/28/2023 1 1 Service Requested Encounter Details Date Type Department Care Team Description 05/28/2022 Hospital Encounter Mobile Edgar Zapata ve heart Echocardiography MD Joey failure, unspecified [facility] [address] HF chronicity, Drive [place] unspecified heart [place], [place], [place] failure type [phone] Social History Tobacco Use Types Packs/Day Years [...] (NITROLINGUAL) 400 the tongue every 5 mcg/spray [place], minutes as needed for Non-Aerosol Chest pain. [...] PM EDT) P athologist Signature EF 33 HEARTPOW SYSTEM Specimen (Source) Anatomical Collection Method Collection Time Re ceived Time Location / / Volume Laterality 05/28/2022 12:44 PM EDT Narrative [facility] - 05/28/2022 3:34 PM EDT ? Echocardiogram Report Name: DARREN VALENTINE ?Study Date: 05/28/2022 12:44 PMBP: 134/74 mmHg ? Patient Location: 4A : 1945 ? Height: 183 cm ? Account: [id number] Age: 76 yrs ? Weight: 125 kg Gender: Male ?BSA: 2.4 m2 Ordering Physician: EDGAR ZAPATA Referring Physician: EDGAR ZAPATA Performed By: [place] Reason For Study: Congestive heart failu re Exam Location: [facility]. Interpretation Summary Technically limited study. Left [...] urgitation. No comparison study is available. Procedure [id number]. Suboptimal quality. Left Ventricle Left ventricle is [...] Location: : 1945 Height: 183 cm Account: [id number] Age: 76 yrs Weight: 125 kg Gender: Male BSA: 2.4 m2 Ordering Physician: EDGAR ZAPATA Referring Physician: EDGAR ZAPATA Performed By: KASHIF Reason For Study: Congestive heart failu re Exam Location: [facility]. Interpretation Summary Technically limited study. Left [...] urgitation. No comparison study is available. Procedure Complete-[id number]. Suboptimal quality. Left Ventricle Left ventricle is [...] type documented in this encounter Care Teams Physiological Chemist Relationship Specialty Start Date End Date Edil Schmidt APRN PCP - General 05/06/12 EMERGENCY DEPT [address] [place] [address] [place] [address] documented as of this encounter
--- OUTSIDE RECORDS SUMMARY | 2022-06-15 00:47 | XMS_ITS | Encounter Summary ---
:1945 Author Organization [facility] [place] [address] Care Team Providers Name Role Phone Edil Schmidt APRN Primary Care Provider Reason for Visit Auth/Cert Specialty Diagnoses / Procedures Referred By Contact Refer red To Contact Diagnoses Heart failure CHF/new cardiomyopathy/ abnormal Lexiscan stress Procedures TAMMY IPI Referral ID Status Reason Start Date Expiration Date Visits Requ ested Visits Authorized [id number] 1 1 Encounter Details Date Type Department Care Team Description 09/10/2017 - [facility] Duke Olivier MD [facility] [place] [address] Heart failure, unspecified heart failure chronicity, unspecified heart failure type; 09/15/2017 Encounter [facility] Karyn Soliz MD [facility] [place] [address] ASCVD (arteriosclerotic cardiovascular d isease); Hospital NSTEMI (non-ST elevated myoc ardial infarction) [place] [address] Social History Tobacco Use Types Packs/Day Years [...] patient presented with: non-STEMI (w/i 7 days). [place] [employer] angina class was IV. This [...] dose administered prior to arrival in the engineering laboratory technician. ? Recommend continuing clopidogrel 75 mg PO [...] COPD and DM who presented initially to [facility] with chief complaint of shortness of breath [...] called an ambulance and was admitted to [facility]. At baseline required only nightly 2.5L o2 [...] ? He was admitted on 09/07 at [facility] and treated initially for ACS given elevated trop in context of dyspnea (trop peaked at 0.15). A stress test was notable for a fixed defect only. He was being prepared for discharge when this morning he tried going to bathroom this morning at [facility] and was markedly dyspneic. For this reason he and his providers at [facility] Other notable labs Cr 1.5, WBC 12, [...] first stent, additional stent placed. --??Heart catheterization, [facility], May 06, 2003: ?20% distal LM, mild diffuse proximal LAD; normalLCX and RCA; EF 45%. 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 Hospital Course: Mr. Vaelntine was admitted for acute on chronic decompensated [...] 50 mg Refills: 0 nitroGLYcerin 400 mcg/spray [employer] Commonly known as: NITROLINGUAL Place 1 spray [...] future appointments. 1pm 10/05 Keyonna Bland At [facility] cardiology Clinic Your Inpatient Doctor: Karyn Soliz MD Your Primary Care Provider: Edil Schmidt, BEAN PICKER MACHINE OPERATOR [phone] For questions regarding this document or issues relating to this hospitalization on the Medical Service, please contact your inpatient physician through the [facility] Propeller Tester . Issues after hours and on weekends will be handled by the Hospitalist staff on-call. For questions regarding this document or issues relating to this hospitalization on the Medical Service, please contact your inpatient physician through the [facility] Propeller Tester . Issues after hours and on weekends will be handled by the Machine Skiver staff on-call. Signed: Margret Sullivan MD documented [...] future appointments. 1pm 10/05 Keyonna Bland At [facility] cardiology Clinic Your Inpatient Doctor: Karyn Soliz MD Your Primary Care Provider: Edil Schmidt, BEAN PICKER MACHINE OPERATOR [phone] For questions regarding this document or issues relating to this hospitalization on the Medical Service, please contact your inpatient physician through the [facility] Propeller Tester . Issues after hours and on weekends [...] (NITROLINGUAL) 400 the tongue every 5 mcg/spray [place], minutes as needed Non-Aerosol for Chest pain. [...] [facility]. Code Status: Full Summary for Today Discharge today Margret Sullivan MD M1-S2, 2165 09/15/17 STAFF ADDENDUM Patient interviewed and examined. [...] 6:48 AM EST Cardiac/Telemetry Nursing Progress Note [id number] Subjective: I'm feeling much better Objective: No complaints of SOB or chest pain Vital Signs: See Vital signs below Cardiac Meds: See online MAR Labs: See labs in online chart. Assessment: HR 50-80 SB/ SR Rate down to 47 non sust Rare PVCs SD 0.20 QRS 0.11 RR 0.95 QTc 0.47 [...] Bautista, PGY 2 - Internal Medicine Pager [phone] 09/15/2017 Zachery Lopez RN - 09/14/2017 7:13 PM EST 1900: Pt arrived to bed 442B from engineering laboratory technician recovery, awake, alert, OX4, (-) right groin [...] Today Cath today Margret Sullivan MD M1-S2, 3304 09/14/17 STAFF ADDENDUM Patient interviewed and examined. [...] midnight for cath Margret Sullivan MD M1-S2, 4996 09/13/17 STAFF ADDENDUM Patient interviewed and examined. [...] ACS treatment Michael Terry PGY-3 S2 Pager [phone] STAFF ADDENDUM Patient interviewed and examined. Medical [...] pt eats a lot of frozen meals. Accounting Reconciliation Clerk informed pt/ family how many milligrams of [...] and spices to incorporate flavor in foods. Accounting Reconciliation Clerk provided extra pepper and Mrs. Torres to [...] Admission Date: 09/10/2017 Covering Team: S2, Pager #[phone] Problem List: Active Hospital Problems Heart failure [...] Extremities: Trace lower extremity edema bilaterally Neuro: pharmacy manager II-XII intact, strength grossly intact bilaterally in [...] 182 195 No results for input(s): PHART, NOO3EXR, PO2ART, BZQ0EWP in the last 168 hours. No results [...] a chief complaintof shortness of breath. At [facility] he effectively ruled out for ACS with [...] Internal Medicine 09/11/2017 Cardiology S2 Team, Pager #[phone] STAFF ADDENDUM Patient interviewed and examined. Medical [...] COPD and DM who presented initially to [facility] with chief complaint of shortness of breath [...] called an ambulance and was admitted to [facility]. At baseline required only nightly 2.5L o2 [...] past. He was admitted on 09/07 at [facility] and treated initially for ACS given elevated trop in context of dyspnea (trop peaked at 0.15). A stress test was notable for a fixed defect only. He was being prepared for discharge when this morning he tried going to bathroom this morning at [facility] and was markedly dyspneic. For this reason he and his providers at [facility] Other notable labs Cr 1.5, WBC 12, [...] stent, additional stent placed. 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 Smoking status: Former Smoker Quit date: 10/26/1991 ??? Smokeless tobacco: Not on file ??? Alcohol use No ??? Drug use: Not on file ??? Sexual activity: Not on file Other Topics Concern ??? Not on file Social History Narrative Lives with in [place], [place]. Has VA services as he is 100% connected due to [employer]. Worked for the [employer] in the past. Family History: Family History [...] mouth daily. ??? nitroGLYcerin (NITROLINGUAL) 400 mcg/spray [place], Non-Aerosol Place 1 spray under the tongue [...] Extremities: Trace lower extremity edema bilaterally Neuro: pharmacy manager II-XII intact, strength grossly intact bilaterally in [...] x10(3)/mcL Imaging/Diagnostics: [place] stress test performed at [facility] on 09/09/17 showed large fixed defect in the apical inferior, inferolateral, and apical dempsey. TTE at [facility] showed LVEF 40-45% with diffuse hypokinesis, moderate AR, TR, and MR; pasp 40 CXR on admission without acute ischemic changes. ASSESSMENT and PLAN: Darren Valentine is a 72 y.o. male with prior CABG, COPD, HTN, and DM admitted with a chief complaintof shortness of breath. At [facility] he effectively ruled out for ACS with [...] in the outpatient cardiac rehabilitation program at [facility] was discussed. Patient agrees to a referral [...] Overview Goal: Plan of Care Review 09/13/17 [id number] Plan of Care Review Progress progress toward [...] plan moving forward is to go to engineering laboratory technician in the am and he plans to [...] Admission: indepedent Home Environment: Lives with in [place], [place] Social & Family Supports/Community Resources: 4 adult step children. All live nearby and are supportive Behavioral Health History: none Substance Use/Abuse: n/a Other Pertinent/Service Specific Information: Has O2 at home. Health/Prescription Coverage: Primary Insurance: Transfer To Secondary Insurance: MEDICARE Prescription Coverage: yes Preferred Pharmacy: [place] Other: none Primary Care Provider: Edil Schmidt, BEAN PICKER MACHINE OPERATOR [phone] Patient/Caregiver Goals of Treatment: home when stable [...] transition of care planning. ELZBIETA Cardona Pager: [phone] Plan of Care - Jacy Samuels RN [...] Name Priority Date/Time Associated Diagnosis Comme nts UTILITY SERVICE WORKER SCAN 09/16/2017 12:00 Res ults for this [...] Timed 09/14/2017 8:34 Results f or this ([facility]/CG[facility]) PM EST procedure are i n the [...] Routine 09/12/2017 6:02 Results f or this ([facility]) AM EST procedure are i n the [...] ENZYMES Routine 09/12/2017 12:20 Results for this ([facility]) AM EST procedure are i n the [...] ENZYMES Routine 09/11/2017 10:46 Results for this ([facility]) AM EST procedure are i n the results section. POCT GLUCOSE Routine 09/11/2017 7:32 Results for this AM EST procedure are i n the results section. LAVENDER TUBE HOLD Routine 09/11/2017 5:05 Result s for this AM EST procedure are i n the results section. CARDIAC ENZYMES Routine 09/11/2017 5:05 Results f or this ([facility]/CGP) AM EST procedure are i n the [...] Routine 09/10/2017 9:10 Results f or this ([facility]) PM EST procedure are i n the [...] documented in this encounter Results SCAN DOC: UTILITY SERVICE WORKER (09/16/2017 12:00 AM EST) Narrative 09/16/2017 12:00 AM EST This result has an attachment that is no t available. Ordered by an unspecified provider. Scanning Provider MEDIA MGR SCAN EXT ORDR/RSLT POCT Glucose (09/15/2017 12:18 PM EST) athologist Signature POC Glucose 182 65 - 199 [facility] mg/dL [facility] Comment: Supplemental ranges: <140 mg/dL before meals <180 mg/dL all other times of the day Specimen Anatomical Collection Method Collection Time Receive d Time (Source) Location / / Volume Laterality Blood specimen 09/15/2017 12:18 7 (specimen) PM EST 12:18 PM EST Karyn Soliz MD POINT OF CARE TEST ORDERABLE S Performing Organization Address City/[facility]/ZIP Code Phon e Number [address] POCT Glucose (09/15/2017 11:30 AM EST) P athologist Signature POC Glucose 187 65 - 199 [facility] mg/dL [facility] Comment: Supplemental ranges: <140 mg/dL before meals <180 mg/dL all other times of the day Specimen Anatomical Collection Method Collection Time Receive d Time (Source) Location / / Volume Laterality Blood specimen 09/15/2017 11:30 7 (specimen) AM EST 11:30 AM EST Karyn Soliz MD POINT OF CARE TEST ORDERABLE S Performing Organization Address City/[facility]/ZIP Code Phon e Number [address] POCT Glucose (09/15/2017 6:56 AM EST) P athologist Signature POC Glucose 102 65 - 199 [facility] mg/dL [facility] Comment: Supplemental ranges: <140 mg/dL before meals <180 mg/dL all other times of the day Specimen Anatomical Collection Method Collection Time Receive d Time (Source) Location / / Volume Laterality Blood specimen 09/15/2017 6:56 AM 017 6:56 (specimen) EST AM EST Karyn Soliz MD POINT OF CARE TEST ORDERABLE S Performing Organization Address City/State/ZIP Code Phon e Number [address] (ABNORMAL) Differential, Automated (09/15/2017 5:31 AM EST) Patholo gist Method Time Signature Neutrophils % 75.0 % [facility] Neutr Abs (ANC) 7.96 (H) 1.70 - [facility] 6.10 [facility] x10(3)/[facility] LABORATORY Lymphocytes % 11.3 % [facility] Lymphocytes Abs 1.2 0.9 - 3.2 [facility] x10(3)/[facility] LABORATORY Monocytes % 11.3 % [facility] Monocyte Abs 1.2 (H) 0.3 - 0.9 [facility] x10(3)/[facility] LABORATORY Eosinophils % 1.4 % [facility] Eosinophils Abs 0.2 0.0 - 0.4 [facility] x10(3)/[facility] LABORATORY Basophils % 0.6 % [facility] Basophils Abs 0.1 0.0 - 0.1 [facility] x10(3)/[facility] LABORATORY Immature Gran % 0.40 % [facility] Comment: Immature granulocytes(IG's)percentage an d absolute count will include metamyelocytes, myelocytes, and promyelo cytes. Blood smears from CBCs yielding IG's will be scanned manually for concor dance. If this scan disagrees with the automated IG or if promyelocytes are not ed, a manual differential will be performed. Kayla Gran Abs 0.04 0.00 - 0.04 x10(3)/[facility] LABORATORY Specimen Anatomical Collection Method Collection Time Receive d Time (Source) Location / / Volume Laterality Blood specimen 09/15/2017 5:31 AM 017 5:45 (specimen) EST AM EST Resulting Agency Comment Spec In Lab Duke Olivier MD HEMATOLOGY ORDERABLES Performing Organization Address City/State/ZIP [place] [address] (ABNORMAL) Hemogram (09/15/2017 5:31 AM EST) Analysis Performed At Patho logist Time Signature WBC 10.6 (H) 4.0 - 9.5 [facility] x10(3)/[facility] LABORATORY RBC 4.31 (L) 4.58 - [facility] 5.54 [facility] x10(6)/[facility] LABORATORY Hemoglobin 12.0 (L) 13.7 - [facility] 16.5 gm/dL [facility] Hematocrit 38.7 (L) 40.5 - [facility] 48.5 % [facility] MCV 89.8 82.9 - [facility] 93.1 [facility] LABORATORY MCH 27.8 27.5 - [facility] 32.1 pg [facility] MCHC 31.0 (L) 32.0 - [facility] 35.7 gm/dL [facility] Platelets 201 145 - 357 [facility] x10(3)/[facility] LABORATORY RDWSD 47.9 (H) 36.0 - [facility] 45.0 [facility] LABORATORY RDWCV 14.6 (H) 11.4 - [facility] 13.8 % [facility] MPV 10.3 7.6 - 12.9 [facility] LABORATORY nRBC % Auto 0.0 % [facility] nRBC Abs Auto 0.000 0.000 - [facility] 0.000 [facility] x10(3)/[facility] LABORATORY Specimen Anatomical Collection Method Collection Time Receive d Time (Source) Location / / Volume Laterality Blood specimen 09/15/2017 5:31 AM 017 5:45 (specimen) EST AM EST Resulting Agency Comment Spec In Lab Duke Olivier MD HEMATOLOGY ORDERABLES Performing Organization Address City/State/ZIP Code Phon e Number [address] Magnesium (09/15/2017 5:31 AM EST) athologist Signature Magnesium 0.88 0.69 - 1.07 [facility] mmol/L [facility] Specimen Anatomical Collection Method Collection Time Receive d Time (Source) Location / / Volume Laterality Blood specimen 09/15/2017 5:31 AM 017 5:45 (specimen) EST AM EST Resulting Agency Comment Spec In Lab Duke Olivier MD CHEMISTRY ORDERABLES Performing Organization Address City/[facility] Phon e Number [address] (ABNORMAL) Basic Metabolic Panel (non-fasting) (09/15/2017 5:31 AM EST) athologist Signature Glucose Lvl 86 65 - 199 [facility] mg/dL [facility] Comment: Diabetes: >=200 mg/dL plus symp toms BUN 38 (H) 10 - 20 mg/dL [facility] Creatinine 1.63 (H) 0.80 - 1.50 mg/dL [facility] Sodium 142 135 - 145 mmol/L [facility] Potassium 3.7 3.5 - 5.0 mmol/L [facility] Comment: Please note: ??Patients with WBC >100,00 0 may have falsely elevated Potassium levels. ??For accurate Potassium quantif ication in these patients send serum separator tube (gold top) for subsequent determinations. ??Contact the Clinical Chemistry Laboratory if there are any qu estions. Chloride 102 98 - 107 mmol/L [facility] CO2 26 22 - 31 mmol/L [facility] Anion Gap 14 5 - 15 mmol/L [facility] Calcium 8.7 8.5 - 10.5 mg/dL [facility] Estimated GFR 42 (L) >=60 [facility] Comment: The reported eGFR should be multiplied b y 1.2 for patients. The MDRD is not an appropriate measure o f renal function for patients with body mass extremes or in patients with acute kidney failure. http://[employer]/DHnkdep http://[employer]/DHMCnkf Specimen Anatomical Collection Method Collection Time Receive d Time (Source) Location / / Volume Laterality Blood specimen 09/15/2017 5:31 AM 017 5:45 (specimen) EST AM EST Resulting Agency Comment Spec In Lab Duke Olivier MD CHEMISTRY ORDERABLES Performing Organization Address City/[facility]/ZIP [place] [address] POCT Glucose (09/15/2017 4:07 AM EST) P athologist Signature POC Glucose 78 65 - 199 [facility] mg/dL [facility] Comment: Supplemental ranges: <140 mg/dL before meals <180 mg/dL all other times of the day Specimen Anatomical Collection Method Collection Time Receive d Time (Source) Location / / Volume Laterality Blood specimen 09/15/2017 4:07 AM 017 4:07 (specimen) EST AM EST Karyn Soliz MD POINT OF CARE TEST ORDERABLE S Performing Organization Address City/[facility]/ZIP [place] [address] (ABNORMAL) POCT Glucose (09/15/2017 12:00 AM EST) P athologist Signature POC Glucose 201 (H) 65 - 199 [facility] mg/dL [facility] Comment: Supplemental ranges: <140 mg/dL before meals <180 mg/dL all other times of the day Specimen (Source) Anatomical Collection Method Collection Time Re ceived Time Location / / Volume Laterality Blood specimen 09/15/2017 09/15/2017 12 :00 (specimen) AM EST Karyn Soliz MD POINT OF CARE TEST ORDERABLE S Performing Organization Address City/[facility]/ZIP Code Phon e Number [place] [id number] (ABNORMAL) Cardiac Enzymes (LEB/CGP) (09/14/2017 8:34 PM EST) athologist Signature Troponin-T 0.03 (H) 0.00 - GHADA VASQUEZCK 0.00 ng/mL [facility] Comment: The 99th percentile for Troponin T is le ss than 0.01 ng/mL, any detectable cTnT concentration using this assay should be considered elevated. According to the third universal definit ion of myocardial infarction the following criteria with a clinical prese ntation consistent with acute myocardial ischemia meets the diagnosis for a myocardial infarction (SD). Detection of a rise and/or fall of [...] additional sample may be indicated. Reference: Third [place] Definition of Myocardial Infarction. Journal of the [place] College [employer] 2012;60:1581-98 CK, Total 88 0 - 200 unit/L [facility] Specimen Anatomical Collection Method Collection Time Receive d Time (Source) Location / / Volume Laterality Blood specimen 09/14/2017 8:34 PM 017 8:44 (specimen) EST PM EST Resulting Agency Comment Spec In Lab Karyn Soliz MD CHEMISTRY ORDERABLES Performing Organization Address City/State/ZIP Code Phon e Number [address] POCT Glucose (09/14/2017 8:22 PM EST) athologist Signature POC Glucose 190 65 - 199 [facility] mg/dL [facility] Comment: Supplemental ranges: <140 mg/dL before meals <180 mg/dL all other times of the day Specimen Anatomical Collection Method Collection Time Receive d Time (Source) Location / / Volume Laterality Blood specimen 09/14/2017 8:22 PM 017 8:22 (specimen) EST PM EST Karyn Soliz MD POINT OF CARE TEST ORDERABLE S Performing Organization Address City/[facility]/ZIP [facility] [place] [address] EKG 12 Lead (09/14/2017 5:44 PM EST) Component Value Ref Range Test Analysis Performed Pathologis t Method Time At Signature Ventricular rate 62 BPM MUSE SYSTEM Atrial Rate 62 BPM MUSE SYSTEM P-R Interval 160 ms MUSE SYSTEM QRS Duration 98 ms MUSE SYSTEM Q-T Interval 508 ms MUSE SYSTEM QTC Calculated 515 ms MUSE SYSTEM (Bezet) Calculated P [place] -5 degrees MUSE SYSTEM Calculated R [place] 50 degrees MUSE SYSTEM Calculated T [place] 49 degrees MUSE SYSTEM INTERPRETATION Normal sinus [...] Bruno MD ECG ORDERABLES Performing Organization Address City/[facility]/ZIP Code Phon e Number MUSE SYSTEM POCT Glucose (09/14/2017 5:29 PM EST) P athologist Signature POC Glucose 116 65 - 199 [facility] mg/dL [facility] Comment: Supplemental ranges: <140 mg/dL before meals <180 mg/dL all other times of the day Specimen Anatomical Collection Method Collection Time Receive d Time (Source) Location / / Volume Laterality Blood specimen 09/14/2017 5:29 PM 017 5:29 (specimen) EST PM EST Karyn Soliz MD POINT OF CARE TEST ORDERABLE S Performing Organization Address City/[facility]/ZIP [place] [address] CARDIAC CATHETERIZATION (09/14/2017 5:10 PM EST) Specimen (Source) Anatomical Location Collection Method / Collectio n Time Received Time / Laterality Volume Narrative CARDIOMAC SYSTEM - 09/14/2017 5:33 PM ES T ?[facility] ? Cardiac Cathete rization/Intervention Report ? Patient Name: Serge, Darren M. ? Procedure Date: 09/14/2017 ? A #: [id number] ? Primary Physician: Mariana Bruno ? Case #: [id number] ? File Name: [id number] ? Catheterization Order Number: [id number] ? [facility] ?[facility] ? Final Report [place], [place] ? Patient Name: ? Darren Contreras er ? ID#: ?[id number] ? : ?1945 ? Procedure Date: ? November 20, 20 17 ?Case #: ? [id number] ? Room: ? 5 ? Case Physician: [...] presented with: non -STEMI (w/i 7 days). [place] ?[employer]iovascular Society angina c lass was IV. [...] dose administered prior to arrival in the engineering laboratory technician. ?Recommend continuing clopidogre l 75 mg PO [...] note might be different from the original. [facility] Cardiac Catheterization/Intervention Re port Patient Name: Serge Darren Edgar Procedure Date: 09/14/2017 A #: [id number] Primary Physician: Mariana Bruno Case #: [id number] File Name: [id number] Catheterization Order Number: [id number] [facility] [facility] Final Report [place], [place] Patient Name: Darren Valentine ID#: [...] presented with: non-STEMI ( w/i 7 days). [employer] angina class was IV. This [...] administered prior t o arrival in the engineering laboratory technician. Recommend continuing clopidogrel 75 mg PO daily [...] angiography, left heart catheterization, bypass graft study, [facility] heart catheterization, oximetry, access site angiography and stent inser tion-bypass graft. Mariana Burno M.D. Electronically Signed by: Edgar Mcdonald Report Finalized: 09/14/2017 17:25 Report Last Ammended: 01/22/2018 10:35 Mariana Bruno MD CARDIAC CATH ORDERABLES Performing Organization Address City/State/ZIP Code Phon e Number CARDIOMAC SYSTEM POCT Glucose (09/14/2017 11:00 AM EST) athologist Signature POC Glucose 150 65 - 199 [facility] Comment: Supplemental ranges: <140 mg/dL before meals <180 mg/dL all other times of the day Specimen Anatomical Collection Method Collection Time Receive d Time (Source) Location / / Volume Laterality Blood specimen 09/14/2017 11:00 7 (specimen) AM EST 11:00 AM EST Karyn Soliz MD POINT OF CARE TEST ORDERABLE S Performing Organization Address City/[facility]/ZIP [place] [address] POCT Glucose (09/14/2017 7:36 AM EST) P athologist Signature POC Glucose 160 65 - 199 [place] [facility] mg/dL [facility] Comment: Supplemental ranges: <140 mg/dL before meals <180 mg/dL all other times of the day Specimen Anatomical Collection Method Collection Time Receive d Time (Source) Location / / Volume Laterality Blood specimen 09/14/2017 7:36 AM 017 7:36 (specimen) EST AM EST Karyn Soliz MD POINT OF CARE TEST ORDERABLE S Performing Organization Address City/State/ZIP [place] [address] [facility] [address] POCT Glucose (09/14/2017 4:07 AM EST) P athologist Signature POC Glucose 124 65 - 199 [facility] mg/dL [facility] Comment: Supplemental ranges: <140 mg/dL before meals <180 mg/dL all other times of the day Specimen Anatomical Collection Method Collection Time Receive d Time (Source) Location / / Volume Laterality Blood specimen 09/14/2017 4:07 AM 017 4:07 (specimen) EST AM EST Karyn Soliz MD POINT OF CARE TEST ORDERABLE S Performing Organization Address City/State/ZIP Code Phon e Number [address] (ABNORMAL) Differential, Automated (09/14/2017 4:02 AM EST) Patholo gist Method Time Signature Neutrophils % 70.0 % [facility] Neutr Abs (ANC) 7.56 (H) 1.70 - [facility] 6.10 [facility] x10(3)/[facility] LABORATORY Lymphocytes % 15.6 % [facility] Lymphocytes Abs 1.7 0.9 - 3.2 [facility] x10(3)/[facility] LABORATORY Monocytes % 11.3 % [facility] Monocyte Abs 1.2 (H) 0.3 - 0.9 [facility] x10(3)/[facility] LABORATORY Eosinophils % 1.9 % [facility] Eosinophils Abs 0.2 0.0 - 0.4 [facility] x10(3)/[facility] LABORATORY Basophils % 0.6 % [facility] Basophils Abs 0.1 0.0 - 0.1 [facility] x10(3)/[facility] LABORATORY Immature Gran % 0.60 % [facility] Comment: Immature granulocytes(IG's)percentage an d absolute count will include metamyelocytes, myelocytes, and promyelo cytes. Blood smears from CBCs yielding IG's will be scanned manually for concor dance. If this scan disagrees with the automated IG or if promyelocytes are not ed, a manual differential will be performed. Kayla Gran Abs 0.06 (H) 0.00 - 0.04 x10(3)/[facility] LABORATORY Specimen Anatomical Collection Method Collection Time Receive d Time (Source) Location / / Volume Laterality Blood specimen 09/14/2017 4:02 AM 017 4:29 (specimen) EST AM EST Resulting Agency Comment Spec In Lab Duke Olivier MD HEMATOLOGY ORDERABLES Performing Organization Address City/State/ZIP [place] [address] (ABNORMAL) Hemogram (09/14/2017 4:02 AM EST) Analysis Performed At Patho logist Time Signature WBC 10.8 (H) 4.0 - 9.5 [facility] x[facility](3[facility] LABORATORY RBC 4.38 (L) 4.58 - [facility] MIC[facility]ELA 5.54 [facility] x10(6)/[facility] LABORATORY Hemoglobin 12.5 (L) 13.7 - [facility] 16.5 gm/dL [facility] Hematocrit 38.2 (L) 40.5 - [facility]EL[facility] 48.5 % [facility] MCV 87.2 82.9 - [facility] 93.1 [facility] LABORATORY MCH 28.5 27.5 - [facility] 32.1 pg [facility] MCHC 32.7 32.0 - [facility]ELA 35.7 gm/dL [facility] Platelets 212 145 - 357 [facility] x10(3)/[facility] LABORATORY RDWSD 46.8 (H) 36.0 - [facility] MICHAELA 45.0 [facility] LABORATORY RDWCV 14.6 (H) 11.4 - [facility]EL[facility] 13.8 % [facility] MPV 10.5 7.6 - 12.9 [facility] LABORATORY nRBC % Auto 0.0 % [facility] nRBC Abs Auto 0.000 0.000 - [facility] 0.000 [facility] x10(3)/[facility] LABORATORY Specimen Anatomical Collection Method Collection Time Receive d Time (Source) Location / / Volume Laterality Blood specimen 09/14/2017 4:02 AM 017 4:29 (specimen) EST AM EST Resulting Agency Comment Spec In Lab Duke Olivier MD HEMATOLOGY ORDERABLES Performing Organization Address City/[facility]/ZIP Code Phon e Number [address] (ABNORMAL) APTT (09/14/2017 4:02 AM EST) athologist Signature PTT 111 (H) 25 - 35 sec [facility] Comment: The recommended therapeutic range for fu ll dose, unfractionated heparin at [facility] is 80 ? 114 seconds. The use [...] Soliz MD HEMATOLOGY ORDERABLES Performing Organization Address City/[facility]/ZIP [place] [address] Magnesium (09/14/2017 4:02 AM EST) athologist Signature Magnesium 0.97 0.69 - 1.07 [facility] mmol/L [facility] Specimen Anatomical Collection Method Collection Time Receive d Time (Source) Location / / Volume Laterality Blood specimen 09/14/2017 4:02 AM 017 4:29 (specimen) EST AM EST Resulting Agency Comment Spec In Lab Duke Olivier MD CHEMISTRY ORDERABLES Performing Organization Address City/[facility]/ZIP [place] [address] (ABNORMAL) Basic Metabolic Panel (non-fasting) (09/14/2017 4:02 AM EST) athologist Signature Glucose Lvl 112 65 - 199 [facility] mg/dL [facility] Comment: Diabetes: >=200 mg/dL plus symp toms BUN 45 (H) 10 - 20 mg/dL [facility] Creatinine 1.68 (H) 0.80 - 1.50 mg/dL [facility]ORY Sodium 140 135 - 145 mmol/L [facility] Potassium 3.9 3.5 - 5.0 mmol/L [facility] Comment: Please note: ??Patients with WBC >100,00 0 may have falsely elevated Potassium levels. ??For accurate Potassium quantif ication in these patients send serum separator tube (gold top) for subsequent determinations. ??Contact the Clinical Chemistry Laboratory if there are any qu estions. Chloride 99 98 - 107 mmol/L [facility] CO2 25 22 - 31 mmol/L [facility] Anion Gap 16 (H) 5 - 15 mmol/L [facility] Calcium 8.9 8.5 - 10.5 mg/dL [facility] Estimated GFR 41 (L) >=60 [facility] Comment: The reported eGFR should be multiplied b y 1.2 for patients. The MDRD is not an appropriate measure o f renal function for patients with body mass extremes or in patients with acute kidney failure. http://[employer]/DHnkdep http://[employer]/DHMCnkf Specimen Anatomical Collection Method Collection Time Receive d Time (Source) Location / / Volume Laterality Blood specimen 09/14/2017 4:02 AM 017 4:29 (specimen) EST AM EST Resulting Agency Comment Spec In Lab Duke Olivier MD CHEMISTRY ORDERABLES Performing Organization Address City/State/ZIP [place] [address] POCT Glucose (09/13/2017 11:54 PM EST) P athologist Signature POC Glucose 102 65 - 199 [facility] mg/dL [facility] Comment: Supplemental ranges: <140 mg/dL before meals <180 mg/dL all other times of the day Specimen Anatomical Collection Method Collection Time Receive d Time (Source) Location / / Volume Laterality Blood specimen 09/13/2017 11:54 7 (specimen) PM EST 11:54 PM EST Karyn Soliz MD POINT OF CARE TEST ORDERABLE S Performing Organization Address City/[facility]/ZIP [place] [address] (ABNORMAL) APTT (09/13/2017 9:48 PM EST) P athologist Signature PTT 94 (H) 25 - 35 sec [facility] Comment: The recommended therapeutic range for fu ll dose, unfractionated heparin at [facility] is 80 ? 114 seconds. The use [...] Organization Address City/State/[place] [address] (ABNORMAL) POCT Glucose (09/13/2017 8:12 PM EST) athologist Signature POC Glucose 203 (H) 65 - 199 [facility] mg/dL [facility] Comment: Supplemental ranges: <140 mg/dL before meals <180 mg/dL all other times of the day Specimen Anatomical Collection Method Collection Time Receive d Time (Source) Location / / Volume Laterality Blood specimen 09/13/2017 8:12 PM 017 8:12 (specimen) EST PM EST Karyn Soliz MD POINT OF CARE TEST ORDERABLE S Performing Organization Address City/State/ZIP [place] [address] POCT Glucose (09/13/2017 5:20 PM EST) P athologist Signature POC Glucose 130 65 - 199 [facility] mg/dL [facility] Comment: Supplemental ranges: <140 mg/dL before meals <180 mg/dL all other times of the day Specimen Anatomical Collection Method Collection Time Receive d Time (Source) Location / / Volume Laterality Blood specimen 09/13/2017 5:20 PM 017 5:20 (specimen) EST PM EST Karyn Soliz MD POINT OF CARE TEST ORDERABLE S Performing Organization Address City/State/[place] [address] (ABNORMAL) APTT (09/13/2017 3:10 PM EST) athologist Signature PTT 71 (H) 25 - 35 sec [facility] Comment: The recommended therapeutic range for fu ll dose, unfractionated heparin at [facility] is 80 ? 114 seconds. The use [...] Organization Address City/State/[place] [address] POCT Glucose (09/13/2017 11:27 AM EST) athologist Signature POC Glucose 191 65 - 199 [facility] mg/dL [facility] Comment: Supplemental ranges: <140 mg/dL before meals <180 mg/dL all other times of the day Specimen Anatomical Collection Method Collection Time Receive d Time (Source) Location / / Volume Laterality Blood specimen 09/13/2017 11:27 7 (specimen) AM EST 11:27 AM EST Karyn Soliz MD POINT OF CARE TEST ORDERABLE S Performing Organization Address City/[facility]/ZIP [place] [address] POCT Glucose (09/13/2017 8:10 AM EST) athologist Signature POC Glucose 124 65 - 199 [facility] mg/dL [facility] Comment: Supplemental ranges: <140 mg/dL before meals <180 mg/dL all other times of the day Specimen Anatomical Collection Method Collection Time Receive d Time (Source) Location / / Volume Laterality Blood specimen 09/13/2017 8:10 AM 017 8:10 (specimen) EST AM EST Karyn Soliz MD POINT OF CARE TEST ORDERABLE S Performing Organization Address City/[facility]/ZIP [place] [address] (ABNORMAL) APTT (09/13/2017 7:33 AM EST) P athologist Signature PTT 68 (H) 25 - 35 sec [facility] Comment: The recommended therapeutic range for fu ll dose, unfractionated heparin at [facility] is 80 ? 114 seconds. The use [...] Soliz MD HEMATOLOGY ORDERABLES Performing Organization Address City/[facility] [place] [address] POCT Glucose (09/13/2017 3:50 AM EST) P athologist Signature POC Glucose 111 65 - 199 [facility] mg/dL [facility] Comment: Supplemental ranges: <140 mg/dL before meals <180 mg/dL all other times of the day Specimen Anatomical Collection Method Collection Time Receive d Time (Source) Location / / Volume Laterality Blood specimen 09/13/2017 3:50 AM 017 3:50 (specimen) EST AM EST Karyn Soliz MD POINT OF CARE TEST ORDERABLE S Performing Organization Address City/[facility]/ZIP [place] [address] (ABNORMAL) Differential, Automated (09/13/2017 1:20 AM EST) Patholo gist Method Time Signature Neutrophils % 72.8 % [facility] Neutr Abs (ANC) 8.12 (H) 1.70 - [facility] 6.10 [facility] x10(3)/[facility] LABORATORY Lymphocytes % 14.8 % [facility] Lymphocytes Abs 1.6 0.9 - 3.2 [facility] x10(3)/[facility] LABORATORY Monocytes % 9.9 % [facility] Monocyte Abs 1.1 (H) 0.3 - 0.9 [facility] x10(3)/[facility] LABORATORY Eosinophils % 1.6 % [facility] Eosinophils Abs 0.2 0.0 - 0.4 [facility] x10(3)/[facility] LABORATORY Basophils % 0.5 % [facility] Basophils Abs 0.1 0.0 - 0.1 [facility] x10(3)/[facility] LABORATORY Immature Gran % 0.40 % [facility] Comment: Immature granulocytes(IG's)percentage an d absolute count will include metamyelocytes, myelocytes, and promyelo cytes. Blood smears from CBCs yielding IG's will be scanned manually for concor dance. If this scan disagrees with the automated IG or if promyelocytes are not ed, a manual differential will be performed. Kayla Gran Abs 0.05 (H) 0.00 - 0.04 x10(3)/[facility] LABORATORY Specimen Anatomical Collection Method Collection Time Receive d Time (Source) Location / / Volume Laterality Blood specimen 09/13/2017 1:20 AM 017 1:25 (specimen) EST AM EST Resulting Agency Comment Spec In Lab Duke Olivier MD HEMATOLOGY ORDERABLES Performing Organization Address City/State/ZIP [place] [address] (ABNORMAL) Hemogram (09/13/2017 1:20 AM EST) Analysis Performed At Patho logist Time Signature WBC 11.2 (H) 4.0 - 9.5 [facility] x10(3)/[facility] LABORATORY RBC 4.17 (L) 4.58 - [facility] MIC[facility]ELA 5.54 [facility] x10(6)/[facility] LABORATORY Hemoglobin 11.8 (L) 13.7 - [facility] 16.5 gm/dL [facility] Hematocrit 36.3 (L) 40.5 - [facility] 48.5 % [facility] MCV 87.1 82.9 - [facility] 93.1 [facility] LABORATORY MCH 28.3 27.5 - [facility] 32.1 pg [facility] MCHC 32.5 32.0 - [facility] MIC[facility]ELA 35.7 gm/dL [facility] Platelets 181 145 - 357 [facility] x10(3)/[facility] LABORATORY RDWSD 46.5 (H) 36.0 - [facility] 45.0 [facility] LABORATORY RDWCV 14.6 (H) 11.4 - [facility] 13.8 % [facility] MPV 10.4 7.6 - 12.9 [facility] LABORATORY nRBC % Auto 0.0 % [facility]ORATORY nRBC Abs Auto 0.000 0.000 - [facility] 0.000 [facility] x10(3)/[facility] LABORATORY Specimen Anatomical Collection Method Collection Time Receive d Time (Source) Location / / Volume Laterality Blood specimen 09/13/2017 1:20 AM 017 1:25 (specimen) EST AM EST Resulting Agency Comment Spec In Lab Duke Olivier MD HEMATOLOGY ORDERABLES Performing Organization Address City/State/ZIP [place] [address] (ABNORMAL) APTT (09/13/2017 1:20 AM EST) P athologist Signature PTT 80 (H) 25 - 35 sec [facility] Comment: The recommended therapeutic range for fu ll dose, unfractionated heparin at [facility] is 80 ? 114 seconds. The use [...] Soliz MD HEMATOLOGY ORDERABLES Performing Organization Address City/[facility]/ZIP Code Phon e Number [address] Magnesium (09/13/2017 1:20 AM EST) P athologist Signature Magnesium 0.94 0.69 - 1.07 [facility] mmol/L [facility] Specimen Anatomical Collection Method Collection Time Receive d Time (Source) Location / / Volume Laterality Blood specimen 09/13/2017 1:20 AM 017 1:25 (specimen) EST AM EST Resulting Agency Comment Spec In Lab Duke Olivier MD CHEMISTRY ORDERABLES Performing Organization Address City/[facility]/ZIP [place] [address] (ABNORMAL) Basic Metabolic Panel (non-fasting) (09/13/2017 1:20 AM EST) athologist Signature Glucose Lvl 114 65 - 199 [facility] mg/dL [facility] Comment: Diabetes: >=200 mg/dL plus symp toms BUN 45 (H) 10 - 20 mg/dL [facility] Creatinine 1.57 (H) 0.80 - 1.50 mg/dL [facility] Sodium 137 135 - 145 mmol/L [facility] Potassium 3.7 3.5 - 5.0 mmol/L [facility] Comment: Please note: ??Patients with WBC >100,00 0 may have falsely elevated Potassium levels. ??For accurate Potassium quantif ication in these patients send serum separator tube (gold top) for subsequent determinations. ??Contact the Clinical Chemistry Laboratory if there are any qu estions. Chloride 98 98 - 107 mmol/L [facility] CO2 25 22 - 31 mmol/L [facility] Anion Gap 14 5 - 15 mmol/L [facility] Calcium 8.8 8.5 - 10.5 mg/dL [facility] Estimated GFR 44 (L) >=60 [facility] Comment: The reported eGFR should be multiplied b y 1.2 for patients. The MDRD is not an appropriate measure o f renal function for patients with body mass extremes or in patients with acute kidney failure. http://[employer]/DHnkdep http://[employer]/DHMCnkf Specimen Anatomical Collection Method Collection Time Receive d Time (Source) Location / / Volume Laterality Blood specimen 09/13/2017 1:20 AM 017 1:25 (specimen) EST AM EST Resulting Agency Comment Spec In Lab uDke Olivier MD CHEMISTRY ORDERABLES Performing Organization Address City/[facility]/ZIP [place] [address] SCAN DOC: CARDIAC CATH (09/13/2017 12:00 AM EST) Narrative 09/13/2017 12:00 AM EST This result has an attachment that is no t available. Ordered by an unspecified provider. Scanning Provider MEDIA MGR SCAN EXT ORDR/RSLT POCT Glucose (09/12/2017 11:16 PM EST) athologist Signature POC Glucose 120 65 - 199 [facility] mg/dL [facility] Comment: Supplemental ranges: <140 mg/dL before meals <180 mg/dL all other times of the day Specimen Anatomical Collection Method Collection Time Receive d Time (Source) Location / / Volume Laterality Blood specimen 09/12/2017 11:16 7 (specimen) PM EST 11:16 PM EST Karyn Soliz MD POINT OF CARE TEST ORDERABLE S Performing Organization Address City/[facility]/ZIP Code Phon e Number [address] POCT Glucose (09/12/2017 7:41 PM EST) P athologist Signature POC Glucose 152 65 - 199 [facility] mg/dL [facility] Comment: Supplemental ranges: <140 mg/dL before meals <180 mg/dL all other times of the day Specimen Anatomical Collection Method Collection Time Receive d Time (Source) Location / / Volume Laterality Blood specimen 09/12/2017 7:41 PM 017 7:41 (specimen) EST PM EST Karyn Soliz MD POINT OF CARE TEST ORDERABLE S Performing Organization Address City/[facility]/ZIP [place] [address] (ABNORMAL) APTT (09/12/2017 5:47 PM EST) athologist Signature PTT 37 (H) 25 - 35 sec [facility] Comment: The recommended therapeutic range for fu ll dose, unfractionated heparin at [facility] is 80 ? 114 seconds. The use [...] Soliz MD HEMATOLOGY ORDERABLES Performing Organization Address City/[facility]/ZIP [place] [address] POCT Glucose (09/12/2017 3:33 PM EST) athologist [facility] POC Glucose 151 65 - 199 [facility] mg/dL [facility] Comment: Supplemental ranges: <140 mg/dL before meals <180 mg/dL all other times of the day Specimen Anatomical Collection Method Collection Time Receive d Time (Source) Location / / Volume Laterality Blood specimen 09/12/2017 3:33 PM 017 3:33 (specimen) EST PM EST Karyn Soliz MD POINT OF CARE TEST ORDERABLE S Performing Organization Address City/[facility]/Z[place] [address] (ABNORMAL) Cardiac Enzymes (LEB/CGP) (09/12/2017 1:34 PM EST) athologist Signature Troponin-T 0.02 (H) 0.00 - [facility] 0.00 ng/mL [facility] Comment: The 99th percentile for Troponin T is le ss than 0.01 ng/mL, any detectable cTnT concentration using this assay should be considered elevated. According to the third universal definit ion of myocardial infarction the following criteria with a clinical prese ntation consistent with acute myocardial ischemia meets the diagnosis for a myocardial infarction (SD). Detection of a rise and/or fall of [...] additional sample may be indicated. Reference: Third [place] Definition of Myocardial Infarction. Journal of the [place] [employer] 2012;60:1581-98 CK, Total 193 0 - 200 unit/L [facility] Specimen Anatomical Collection Method Collection Time Receive d Time (Source) Location / / Volume Laterality Blood specimen 09/12/2017 1:34 PM 017 1:49 (specimen) EST PM EST Resulting Agency Comment Spec In Lab Duke Olivier MD CHEMISTRY ORDERABLES Performing Organization Address City/State/ZIP [place] [address] POCT Glucose (09/12/2017 12:08 PM EST) athologist Signature POC Glucose 150 65 - 199 [facility] mg/dL [facility] Comment: Supplemental ranges: <140 mg/dL before meals <180 mg/dL all other times of the day Specimen Anatomical Collection Method Collection Time Receive d Time (Source) Location / / Volume Laterality Blood specimen 09/12/2017 12:08 7 (specimen) PM EST 12:08 PM EST Karyn Soliz MD POINT OF CARE TEST ORDERABLE S Performing Organization Address City/[facility]/ZIP Code Phon e Number [address] APTT (09/12/2017 11:01 AM EST) athologist Signature PTT 35 25 - 35 sec [facility] Comment: The recommended therapeutic range for fu ll dose, unfractionated heparin at [facility] is 80 ? 114 seconds. The use [...] Soliz MD HEMATOLOGY ORDERABLES Performing Organization Address City/[facility]/ZIP Code Phon e Number [address] POCT Glucose (09/12/2017 7:41 AM EST) athologist Signature POC Glucose 129 65 - 199 [facility] mg/dL [facility] Comment: Supplemental ranges: <140 mg/dL before meals <180 mg/dL all other times of the day Specimen Anatomical Collection Method Collection Time Receive d Time (Source) Location / / Volume Laterality Blood specimen 09/12/2017 7:41 AM 017 7:41 (specimen) EST AM EST Karyn Soliz MD POINT OF CARE TEST ORDERABLE S Performing Organization Address City/[facility]/ZIP Code Phon e Number [address] (ABNORMAL) Differential, Automated (09/12/2017 6:02 AM EST) Patholo gist Method Time Signature Neutrophils % 74.0 % [facility] Neutr Abs (ANC) 7.27 (H) 1.70 - [facility] 6.10 [facility] x10(3)/[facility] L LABORATORY Lymphocytes % 13.6 % [facility] Lymphocytes Abs 1.3 0.9 - 3.2 [facility] x10(3)/[facility] LABORATORY Monocytes % 9.9 % [facility] Monocyte Abs 1.0 (H) 0.3 - 0.9 [facility] x10(3)/[facility] LABORATORY Eosinophils % 1.8 % [facility] Eosinophils Abs 0.2 0.0 - 0.4 [facility] x10(3)/[facility] LABORATORY Basophils % 0.3 % [facility] Basophils Abs 0.0 0.0 - 0.1 [facility] x10(3)/[facility] LABORATORY Immature Gran % 0.40 % [facility] Comment: Immature granulocytes(IG's)percentage an d absolute count will include metamyelocytes, myelocytes, and promyelo cytes. Blood smears from CBCs yielding IG's will be scanned manually for concor dance. If this scan disagrees with the automated IG or if promyelocytes are not ed, a manual differential will be performed. Kayla Gran Abs 0.04 0.00 - 0.04 x10(3)/[facility]ATORY Specimen Anatomical Collection Method Collection Time Receive d Time (Source) Location / / Volume Laterality Blood specimen 09/12/2017 6:02 AM 017 6:25 (specimen) EST AM EST Resulting Agency Comment Spec In Lab Duke Olivier MD HEMATOLOGY ORDERABLES Performing Organization Address City/State/ZIP [place] [address] (ABNORMAL) Hemogram (09/12/2017 6:02 AM EST) Analysis Performed At Patho logist Time Signature WBC 9.8 (H) 4.0 - 9.5 [facility] x10(3)/[facility] LABORATORY RBC 4.42 (L) 4.58 - [facility] 5.54 [facility] x10(6)/[facility] LABORATORY Hemoglobin 12.6 (L) 13.7 - [facility] 16.5 gm/dL [facility] Hematocrit 38.9 (L) 40.5 - [facility] [place] 48.5 % [facility] MCV 88.0 82.9 - [place] [place] 93.1 [facility] LABORATORY MCH 28.5 27.5 - [place] [place] 32.1 pg [facility] MCHC 32.4 32.0 - [facility] [place] 35.7 gm/dL [facility] Platelets 187 145 - 357 [place] [place] x10(3)/[facility] LABORATORY RDWSD 46.8 (H) 36.0 - [place] [place] 45.0 [facility] LABORATORY RDWCV 14.6 (H) 11.4 - [place] [place] 13.8 % [facility] MPV 10.5 7.6 - 12.9 [facility] [place] [facility] LABORATORY nRBC % Auto 0.0 % [facility] nRBC Abs Auto 0.000 0.000 - [place] [place] 0.000 [facility] x10(3)/[facility] LABORATORY Specimen Anatomical Collection Method Collection Time Receive d Time (Source) Location / / Volume Laterality Blood specimen 09/12/2017 6:02 AM 017 6:25 (specimen) EST AM EST Resulting Agency Comment Spec In Lab Duke Olivier MD HEMATOLOGY ORDERABLES Performing Organization Address City/State/ZIP [place] [address] (ABNORMAL) Cardiac Enzymes (LEB/CGP) (09/12/2017 6:02 AM EST) P athologist Signature Troponin-T 0.02 (H) 0.00 - [place] [place] 0.00 ng/mL [facility] Comment: The 99th percentile for Troponin T is le ss than 0.01 ng/mL, any detectable cTnT concentration using this assay should be considered elevated. According to the third universal definit ion of myocardial infarction the following criteria with a clinical prese ntation consistent with acute myocardial ischemia meets the diagnosis for a myocardial infarction (SD). Detection of a rise and/or fall of [...] additional sample may be indicated. Reference: [place] Definition of Myocardial Infarction. Journal of the [place] [employer] 2012;60:1581-98 CK, Total 200 0 - 200 unit/L [facility] Specimen Anatomical Collection Method Collection Time Receive d Time (Source) Location / / Volume Laterality Blood specimen 09/12/2017 6:02 AM 017 6:25 (specimen) EST AM EST Resulting Agency Comment Spec In Lab Duke Olivier MD CHEMISTRY ORDERABLES Performing Organization Address City/[facility]/ZIP [place] [address] Magnesium (09/12/2017 6:02 AM EST) P athologist Signature Magnesium 0.88 0.69 - 1.07 [facility] mmol/L [facility] Specimen Anatomical Collection Method Collection Time Receive d Time (Source) Location / / Volume Laterality Blood specimen 09/12/2017 6:02 AM 017 6:25 (specimen) EST AM EST Resulting Agency Comment Spec In Lab Duke Olivier MD CHEMISTRY ORDERABLES Performing Organization Address City/[facility] [place] [address] (ABNORMAL) Basic Metabolic Panel (non-fasting) (09/12/2017 6:02 AM EST) P athologist Signature Glucose Lvl 125 65 - 199 [facility] mg/dL [facility] Comment: Diabetes: >=200 mg/dL plus symp toms BUN 39 (H) 10 - 20 mg/dL [facility] Creatinine 1.49 0.80 - 1.50 mg/dL [facility] Sodium 139 135 - 145 mmol/L [facility] Potassium 3.8 3.5 - 5.0 mmol/L [facility] Comment: Please note: ??Patients with WBC >100,00 0 may have falsely elevated Potassium levels. ??For accurate Potassium quantif ication in these patients send serum separator tube (gold top) for subsequent determinations. ??Contact the Clinical Chemistry Laboratory if there are any qu estions. Chloride 97 (L) 98 - 107 mmol/L [facility] CO2 26 22 - 31 mmol/L [facility] Anion Gap 16 (H) 5 - 15 mmol/L [facility] Calcium 8.9 8.5 - 10.5 mg/dL [facility] Estimated GFR 47 (L) >=60 [facility] Comment: The reported eGFR should be multiplied b y 1.2 for patients. The MDRD is not an appropriate measure o f renal function for patients with body mass extremes or in patients with acute kidney failure. http://[employer]/DHnkdep http://[employer]/DHMCnkf Specimen Anatomical Collection Method Collection Time Receive d Time (Source) Location / / Volume Laterality Blood specimen 09/12/2017 6:02 AM 017 6:25 (specimen) EST AM EST Resulting Agency Comment Spec In Lab Duke Olivier MD CHEMISTRY ORDERABLES Performing Organization Address City/State/ZIP [place] [address] POCT Glucose (09/12/2017 3:53 AM EST) P athologist Signature POC Glucose 107 65 - 199 [facility] mg/dL [facility] Comment: Supplemental ranges: <140 mg/dL before meals <180 mg/dL all other times of the day Specimen Anatomical Collection Method Collection Time Receive d Time (Source) Location / / Volume Laterality Blood specimen 09/12/2017 3:53 AM 017 3:53 (specimen) EST AM EST Karyn Soliz MD POINT OF CARE TEST ORDERABLE S Performing Organization Address City/State/ZIP [place] [address] (ABNORMAL) Cardiac Enzymes (LEB/CGP) (09/12/2017 12:20 AM EST) athologist Signature Troponin-T 0.04 (H) 0.00 - [facility] 0.00 ng/mL [facility] Comment: The 99th percentile for Troponin T is le ss than 0.01 ng/mL, any detectable cTnT concentration using this assay should be considered elevated. According to the third universal definit ion of myocardial infarction the following criteria with a clinical prese ntation consistent with acute myocardial ischemia meets the diagnosis for a myocardial infarction (SD). Detection of a rise and/or fall of [...] additional sample may be indicated. Reference: [place] Definition of Myocardial Infarction. Journal of the [place] [employer] 2012;60:1581-98 CK, Total 224 (H) 0 - 200 unit/L [facility] Specimen Anatomical Collection Method Collection Time Receive d Time (Source) Location / / Volume Laterality Blood specimen 09/12/2017 12:20 7 (specimen) AM EST 12:43 AM EST Resulting Agency Comment Spec In Lab Duke Olivier MD CHEMISTRY ORDERABLES Performing Organization Address City/[facility]/ZIP Code Phon e Number [address] POCT Glucose (09/11/2017 11:43 PM EST) athologist Signature POC Glucose 90 65 - 199 [facility] [place] mg/dL [facility] Comment: Supplemental ranges: <140 mg/dL before meals <180 mg/dL all other times of the day Specimen Anatomical Collection Method Collection Time Receive d Time (Source) Location / / Volume Laterality Blood specimen 09/11/2017 11:43 7 (specimen) PM EST 11:43 PM EST Karyn Soliz MD POINT OF CARE TEST ORDERABLE S Performing Organization Address City/[facility]/ZIP [facility] [place] [address] EKG 12 Lead (09/11/2017 11:25 PM EST) Component Value Ref Range Test Analysis Performed Pathologis t Method Time At Signature Ventricular rate 70 BPM MUSE SYSTEM Atrial Rate 70 BPM MUSE SYSTEM P-R Interval 188 ms MUSE SYSTEM QRS Duration 100 ms MUSE SYSTEM Q-T Interval 424 ms MUSE SYSTEM QTC Calculated 457 ms MUSE SYSTEM (Bezet) Calculated P [place] 44 degrees MUSE SYSTEM Calculated R [place] 38 degrees MUSE SYSTEM Calculated T [place] 4 degrees MUSE SYSTEM INTERPRETATION Normal sinus [...] Olivier MD ECG ORDERABLES Performing Organization Address City/[facility]/ZIP Code Phon e Number MUSE SYSTEM POCT Glucose (09/11/2017 8:08 PM EST) P athologist Signature POC Glucose 175 65 - 199 [facility] Comment: Supplemental ranges: <140 mg/dL before meals <180 mg/dL all other times of the day Specimen Anatomical Collection Method Collection Time Receive d Time (Source) Location / / Volume Laterality Blood specimen 09/11/2017 8:08 PM 017 8:08 (specimen) EST PM EST Karyn Soliz MD POINT OF CARE TEST ORDERABLE S Performing Organization Address City/[facility]/ZIP Code Phon e Number [place] [phone] (ABNORMAL) Cardiac Enzymes (LEB/CGP) (09/11/2017 4:53 PM EST) athologist Signature Troponin-T 0.03 (H) 0.00 - [facility] [place] 0.00 ng/mL [facility] Comment: The 99th percentile for Troponin T is le ss than 0.01 ng/mL, any detectable cTnT concentration using this assay should be considered elevated. According to the third universal definit ion of myocardial infarction the following criteria with a clinical prese ntation consistent with acute myocardial ischemia meets the diagnosis for a myocardial infarction (SD). Detection of a rise and/or fall of [...] additional sample may be indicated. Reference: [place] Definition of Myocardial Infarction. Journal of the [place] [employer] 2012;60:1581-98 CK, Total 213 (H) 0 - 200 unit/L [facility] Specimen Anatomical Collection Method Collection Time Receive d Time (Source) Location / / Volume Laterality Blood specimen 09/11/2017 4:53 PM 017 4:59 (specimen) EST PM EST Resulting Agency Comment Spec In Lab Duke Olivier MD CHEMISTRY ORDERABLES Performing Organization Address City/State/ZIP Code Phon e Number [place] [phone] [facility] [address] Drive POCT Glucose (09/11/2017 4:30 PM EST) athologist Signature POC Glucose 122 65 - 199 [facility] mg/dL [facility] Comment: Supplemental ranges: <140 mg/dL before meals <180 mg/dL all other times of the day Specimen Anatomical Collection Method Collection Time Receive d Time (Source) Location / / Volume Laterality Blood specimen 09/11/2017 4:30 PM 017 4:30 (specimen) EST PM EST Karyn Soliz MD POINT OF CARE TEST ORDERABLE S Performing Organization Address City/State/ZIP [place] [address] ECHOCARDIOGRAM COMPLETE W CONTRAST (09/11/2017 11:45 AM EST) P athologist Signature EF 35 [facility] Specimen (Source) Anatomical Location Collection Method / Collectio n Time Received Time / Laterality Volume 09/11/2017 Narrative [facility] - 09/11/2017 2:09 PM EST Procedure: ?Transthoracic Echocardiogram Patient: ?SERGE Reyez ? (Age): 1945(72y) Med Rec#: ? [id number] ?Sex: ?M ? [place] Loc: ? [facility] ?Ht / Wt: ??168(cm)/126(kg) Pt. Loc: ?Adult Floor ? BSA: ?2.3 Study Date: ?? 09/11/2017 ?Pt. Type: Inpatient Tape: ? Referring: JACY BRUNO E Referring: Duke Olivier ([id number]) Reading: Rafael Givens ([id number]) Thermal Spray Operator: Jacy Chan [facility] Diagnosis: *ICD-10-PCS Heart failure, [...] E-wave Vmax ?0.8 ?m/sec ? MV deceleration [id number] ?msec ? MV A-wave Vmax ?0.3 ?m/sec [...] ? Mid-Inferior ?Hypokinetic ? Mid-Inferoseptal ?Hypokinetic ? [place]-Septal ? Hypokinetic ? [place]-Anterior ? Hypokinetic ? [place]-Lateral ?Hypokinetic ? [place]-Inferior ? Hypokinetic ? [place]-Tip ?Hypokinetic ? This report has been electronically sign ed by: _ Rafael Givens MD ? 09/11/2017 13 :41:22 Images reviewed and interpretation verif ied [facility] Cardiac Ultrasound Laboratory Procedure Note Rafael Givens MD - 09/11/2017Formatt ing of this note might be different from the original. Procedure: Transthoracic Echocardiogram Patient: SERGE Reyez (Age): [birth year](72y) Med Rec#: [id number] Sex: M [place] Loc: [facility] Ht / Wt: 168(cm)/126(kg) Pt. Loc: Adult Floor BSA: 2.3 Study Date: 09/11/2017 Pt. Type: Inpatie nt Tape: Referring: JACY BRUNO E Referring: Duke Olivier ([id number]) Reading: Rafael Givens ([id number]) Thermal Spray Operator: Jacy Chan [facility] Diagnosis: *ICD-10-PCS Heart failure, [...] MV E-wave Vmax 0.8 m/sec MV deceleration [id number] msec MV A-wave Vmax 0.3 m/sec MV E:A ratio 2.6 ratio LV E:e' septal ratio15.2 ratio LV E:e' lateral rati10.6 ratio Tricuspid Valve Value Units (Range) RAP 3 mmHg Wall Motion: Segment Name Rest Base-Anteroseptal Hypokinetic Base-Anterior Hypokinetic Base-Anterolateral Hypokinetic Base-Posterolateral Hypokinetic Base-Inferior Hypokinetic Base-Inferoseptal Hypokinetic Mid-Anteroseptal Hypokinetic Mid-Anterior Hypokinetic Mid-Anterolateral Hypokinetic Mid-Posterolateral Hypokinetic Mid-Inferior Hypokinetic Mid-Inferoseptal Hypokinetic [place]-Septal Hypokinetic [place]-Anterior Hypokinetic [place]-Lateral Hypokinetic [place]-Inferior Hypokinetic [place]-Tip Hypokinetic This report has been electronically sign ed by: _ Rafael Givens MD 09/11/2017 13:41:22 Images reviewed and interpretation [facility] Duke Olivier MD ECHO ORDERABLES Performing Organization Address City/State/ZIP Code Phon e Number [facility] POCT Glucose (09/11/2017 11:45 AM EST) athologist Signature POC Glucose 146 65 - 199 [facility] mg/dL [facility] Comment: Supplemental ranges: <140 mg/dL before meals <180 mg/dL all other times of the day Specimen Anatomical Collection Method Collection Time Receive d Time (Source) Location / / Volume Laterality Blood specimen 09/11/2017 11:45 7 (specimen) AM EST 11:45 AM EST Karyn Soliz MD POINT OF CARE TEST ORDERABLE S Performing Organization Address City/[facility]/ZIP [facility] [place] [address] (ABNORMAL) Cardiac Enzymes (LEB/CGP) (09/11/2017 10:46 AM EST) athologist Signature Troponin-T 0.03 (H) 0.00 - [facility] 0.00 ng/mL [facility] Comment: The 99th percentile for Troponin T is le ss than 0.01 ng/mL, any detectable cTnT concentration using this assay should be considered elevated. According to the third universal definit ion of myocardial infarction the following criteria with a clinical prese ntation consistent with acute myocardial ischemia meets the diagnosis for a myocardial infarction (SD). Detection of a rise and/or fall of [...] additional sample may be indicated. Reference: [place] Definition of Myocardial Infarction. Journal of the [place] [employer] 2012;60:1581-98 CK, Total 202 (H) 0 - 200 unit/L [facility] Specimen Anatomical Collection Method Collection Time Receive d Time (Source) Location / / Volume Laterality Blood specimen 09/11/2017 10:46 7 (specimen) AM EST 10:53 AM EST Resulting Agency Comment Spec In Lab Duke Olivier MD CHEMISTRY ORDERABLES Performing Organization Address City/State/ZIP Code Phon e Number [address] POCT Glucose (09/11/2017 7:32 AM EST) athologist Signature POC Glucose 124 65 - 199 [facility] mg/dL [facility] Comment: Supplemental ranges: <140 mg/dL before meals <180 mg/dL all other times of the day Specimen Anatomical Collection Method Collection Time Receive d Time (Source) Location / / Volume Laterality Blood specimen 09/11/2017 7:32 AM 017 7:32 (specimen) EST AM EST Karyn Soliz MD POINT OF CARE TEST ORDERABLE S Performing Organization Address City/State/ZIP [place] [address] (ABNORMAL) Basic Metabolic Panel (non-fasting) (09/11/2017 5:05 AM EST) P athologist Signature Glucose Lvl 110 65 - 199 [facility] mg/dL [facility] Comment: Diabetes: >=200 mg/dL plus symp toms BUN 33 (H) 10 - 20 mg/dL [facility] Creatinine 1.52 (H) 0.80 - 1.50 mg/dL [facility] Sodium 140 135 - 145 mmol/L [facility] Potassium 4.1 3.5 - 5.0 mmol/L [facility] Comment: Please note: ??Patients with WBC >100,00 0 may have falsely elevated Potassium levels. ??For accurate Potassium quantif ication in these patients send serum separator tube (gold top) for subsequent determinations. ??Contact the Clinical Chemistry Laboratory if there are any qu estions. Chloride 99 98 - 107 mmol/L [facility] CO2 Not Perf 22 - 31 mmol/L [facility] Comment: Add-on request. Sample too old to perform test. Anion Gap Unable to Calculate 5 - 15 mmol/L [facility] Calcium 9.2 8.5 - 10.5 mg/dL [facility] Estimated GFR 46 (L) >=60 [facility] Comment: The reported eGFR should be multiplied b y 1.2 for patients. The MDRD is not an appropriate measure o f renal function for patients with body mass extremes or in patients with acute kidney failure. http://[employer]/DHnkdep http://[employer]/DHMCnkf Specimen Anatomical Collection Method Collection Time Receive d Time (Source) Location / / Volume Laterality Blood specimen Venous Draw / 09/11/2017 5:05 AM 2016 5:47 (specimen) Unknown EST AM EST Resulting Agency Comment Spec In Lab Duke Olivier MD CHEMISTRY ORDERABLES Performing Organization Address City/State/ZIP [place] [address] Lavender Tube HOLD (09/11/2017 5:05 AM EST) Patholo gist Method Time Signature Lavender Hold Sample in [facility] lab. [facility] Specimen Anatomical Collection Method Collection Time Receive d Time (Source) Location / / Volume Laterality Blood specimen Venous Draw / 09/11/2017 5:05 AM 2016 5:43 (specimen) Unknown EST AM EST Duke Olivier MD HEMATOLOGY ORDERABLES Performing Organization Address City/State/ZIP [place] [address] (ABNORMAL) Cardiac Enzymes (LEB/CGP) (09/11/2017 5:05 AM EST) P athologist Signature Troponin-T 0.03 (H) 0.00 - [facility] 0.00 ng/mL [facility] Comment: The 99th percentile for Troponin T is le ss than 0.01 ng/mL, any detectable cTnT concentration using this assay should be considered elevated. According to the third universal definit ion of myocardial infarction the following criteria with a clinical prese ntation consistent with acute myocardial ischemia meets the diagnosis for a myocardial infarction (SD). Detection of a rise and/or fall of [...] additional sample may be indicated. Reference: [place] Definition of Myocardial Infarction. Journal of the [place] [employer] 2012;60:1581-98 CK, Total 182 0 - 200 unit/L [facility] Specimen Anatomical Collection Method Collection Time Receive d Time (Source) Location / / Volume Laterality Blood specimen 09/11/2017 5:05 AM 017 5:43 (specimen) EST AM EST Resulting Agency Comment Spec In Lab Duke Olivier MD CHEMISTRY ORDERABLES Performing Organization Address City/State/ZIP [place] [address] POCT Glucose (09/11/2017 5:04 AM EST) P athologist Signature POC Glucose 107 65 - 199 [facility] Comment: Supplemental ranges: <140 mg/dL before meals <180 mg/dL all other times of the day Specimen Anatomical Collection Method Collection Time Receive d Time (Source) Location / / Volume Laterality Blood specimen 09/11/2017 5:04 AM 017 5:04 (specimen) EST AM EST Duke Olivier MD POINT OF CARE TEST ORDERABLE S Performing Organization Address City/[facility]/ZIP [place] [address] POCT Glucose (09/11/2017 12:49 AM EST) athologist Signature POC Glucose 96 65 - 199 [facility] Comment: Supplemental ranges: <140 mg/dL before meals <180 mg/dL all other times of the day Specimen Anatomical Collection Method Collection Time Receive d Time (Source) Location / / Volume Laterality Blood specimen 09/11/2017 12:49 7 (specimen) AM EST 12:49 AM EST Duke Olivier MD POINT OF CARE TEST ORDERABLE S Performing Organization Address City/[facility]/[place]IP [place] [address] EKG 12 Lead (09/11/2017 12:27 AM EST) Component Value Ref Range Test Analysis Performed Pathologis t Method Time At Signature Ventricular rate 76 BPM MUSE SYSTEM Atrial Rate 76 BPM MUSE SYSTEM P-R Interval 182 ms MUSE SYSTEM QRS Duration 100 ms MUSE SYSTEM Q-T Interval 432 ms MUSE SYSTEM QTC Calculated 486 ms MUSE SYSTEM (Bezet) Calculated P [place] 36 degrees MUSE SYSTEM Calculated R [place] 30 degrees MUSE SYSTEM Calculated T [place] 35 degrees MUSE SYSTEM INTERPRETATION Normal sinus [...] (ABNORMAL) Differential, Automated (09/10/2017 9:10 PM EST) [facility] Method Time Signature Neutrophils % 80.3 % [facility] LABORATORY Neutr Abs (ANC) 10.50 (H) 1.70 - [facility] 6.10 [facility] x10(3)/[facility] L LABORATORY Lymphocytes % 10.0 % [facility] LABORATORY Lymphocytes Abs 1.3 0.9 - 3.2 [facility] x10(3)/[facility] LABORATORY Monocytes % 7.7 % [facility] LABORATORY Monocyte Abs 1.0 (H) 0.3 - 0.9 [facility] x10(3)/[facility] LABORATORY Eosinophils % 1.1 % [facility] LABORATORY Eosinophils Abs 0.1 0.0 - 0.4 [facility] x10(3)/[facility] LABORATORY Basophils % 0.4 % [facility] LABORATORY Basophils Abs 0.0 0.0 - 0.1 [facility] x10(3)/[facility] LABORATORY Immature Gran % 0.50 % [facility] LABORATORY Comment: Immature granulocytes(IG's)percentage an d absolute count will include metamyelocytes, myelocytes, and promyelo cytes. Blood smears from CBCs yielding IG's will be scanned manually for concor dance. If this scan disagrees with the automated IG or if promyelocytes are not ed, a manual differential will be performed. Kayla Gran Abs 0.07 (H) 0.00 - 0.04 x10(3)/[facility] LABORATORY Specimen Anatomical Collection Method Collection Time Receive d Time (Source) Location / / Volume Laterality Blood specimen 09/10/2017 9:10 PM 017 9:19 (specimen) EST PM EST Resulting Agency Comment Spec In Lab Duke Olivier MD HEMATOLOGY ORDERABLES Performing Organization Address City/State/ZIP [place] [address] (ABNORMAL) Hemogram (09/10/2017 9:10 PM EST) Analysis Performed At Patho logist Time Signature WBC 13.1 (H) 4.0 - 9.5 [facility] x10(3)/[facility] LABORATORY RBC 4.38 (L) 4.58 - [facility] 5.54 [facility] x10(6)/[facility] LABORATORY Hemoglobin 12.2 (L) 13.7 - [facility] [place] 16.5 gm/dL [facility] LABORATORY Hematocrit 38.5 (L) 40.5 - [facility] [place] 48.5 % [facility] LABORATORY MCV 87.9 82.9 - [facility] 93.1 [facility] LABORATORY MCH 27.9 27.5 - [facility] [place] 32.1 pg [facility] LABORATORY MCHC 31.7 (L) 32.0 - [facility] [place] 35.7 gm/dL [facility] LABORATORY Platelets 184 145 - 357 [facility] x10(3)/[facility] LABORATORY RDWSD 47.5 (H) 36.0 - [facility] [place]AVE[place]HA[place] 45.0 [facility] LABORATORY RDWCV 14.6 (H) 11.4 - [facility] [place] 13.8 % [facility] LABORATORY MPV 10.4 7.6 - 12.9 [facility] LABORATORY nRBC % Auto 0.0 % [facility] LABORATORY nRBC Abs Auto 0.000 0.000 - [facility] [place] 0.000 [facility] x10(3)/[facility] LABORATORY Specimen Anatomical Collection Method Collection Time Receive d Time (Source) Location / / Volume Laterality Blood specimen 09/10/2017 9:10 PM 017 9:19 (specimen) EST PM EST Resulting Agency Comment Spec In Lab Duke Olivier MD HEMATOLOGY ORDERABLES Performing Organization Address City/State/[place]IP [place] [address] (ABNORMAL) Cardiac Enzymes (LEB/CGP) (09/10/2017 9:10 PM EST) P athologist Signature Troponin-T 0.04 (H) 0.00 - [facility] [place] 0.00 ng/mL [facility] LABORATORY Comment: The 99th percentile for Troponin T is le ss than 0.01 ng/mL, any detectable cTnT concentration using this assay should be considered elevated. According to the third universal definit ion of myocardial infarction the following criteria with a clinical prese ntation consistent with acute myocardial ischemia meets the diagnosis for a myocardial infarction (SD). Detection of a rise and/or fall of [...] additional sample may be indicated. Reference: Third [place] Definition of Myocardial Infarction. Journal of the [place] [employer] 2012;60:1581-98 CK, Total 195 0 - 200 unit/L [facility] LABORATORY Specimen Anatomical Collection Method Collection Time Receive d Time (Source) Location / / Volume Laterality Blood specimen 09/10/2017 9:10 PM 017 (specimen) EST 11:24 PM EST Resulting Agency Comment Spec In Lab Duke Olivier MD CHEMISTRY ORDERABLES Performing Organization Address City/[facility]/ZIP Code Phon e Number [address] LDL Cholesterol, Direct (09/10/2017 9:10 PM EST) P athologist Signature LDL Chol 99 <=190 [facility] Direct mg/dL [facility] LABORATORY Specimen Anatomical Collection Method Collection Time Receive d Time (Source) Location / / Volume Laterality Blood specimen 09/10/2017 9:10 PM 017 (specimen) EST 11:24 PM EST Resulting Agency Comment Spec In Lab Duke Olivier MD CHEMISTRY ORDERABLES Performing Organization Address City/[facility]/ZIP [facility] Phon e Number [address] HDL/Cholesterol Profile (09/10/2017 9:10 PM EST) Patholo gist Method Time Signature Chol, Total 155 <=239 [facility] mg/dL [facility] LABORATORY HDL 43 >=40 [facility] mg/dL [facility] LABORATORY Chol/HDL Ratio 3.6 ratio [facility] LABORATORY Chol/HDL See Note [facility] LABORATORY Comment: Lipid management should be guided by a p atient? s ASCVD risk, goals and preferences. ACC/AHA Guidelines recommend high intens ity statin if clinical ASCVD or LDL greater than or equal to 190 mg/dL. http://Omb[employer].com/TNN-OKX-Rxlmwdkyi Measure LDL if Total Cholesterol minus H DL Cholesterol is greater than 220 mg/dL. Adults aged 40-75 with LDL 70-189 mg/dL should have their 10 year ASCVD risk estimated with the ACC/AHA ASCVD risk es timator http://tools.acc.org/VTCSQ-Nxpk-Evxcpdcc r/ Statin should be discussed if risk [...] Organization Address City/State/[place]IP [place] [address] (ABNORMAL) Hemoglobin A1c (09/10/2017 9:10 PM EST) Analysis Performed At Patho logist Time Signature Hemoglobin A1C 7.2 (H) 4.3 - 5.6 [facility] LABORATORY Comment: Reference Range: 4.3 - [...] Mellitus, Diabetes Care 2013; 36: Suppl. 1, S67-97 Est Avg Gluc See note mg/dL [facility] LABORATORY Comment: Estimated Average Glucose not [...] with hemoglobinopathies. Additional resources are available on [facility] ADA website. [place] WILKS, Orlando J, Jean R, et al. ??Tr anslating the A1C assay into estimated average glucose values. ??Diabetes Care 2008:31(8):7233-9900. Specimen Anatomical Collection Method Collection Time Receive d Time (Source) Location / / Volume Laterality Blood specimen 09/10/2017 9:10 PM 017 (specimen) EST 11:25 PM EST Resulting Agency Comment Spec In Lab Duke Olivier MD CHEMISTRY ORDERABLES Performing Organization Address City/State/ZIP Code Phon e [place] [address] TSH (09/10/2017 9:10 PM EST) P athologist Signature TSH 3.16 0.27 - 4.20 [facility] [place]ENNINGS mlU/ML [facility] LABORATORY Specimen Anatomical Collection Method Collection Time Receive d Time (Source) Location / / Volume Laterality Blood specimen 09/10/2017 9:10 PM 017 (specimen) EST 11:24 PM EST Resulting Agency Comment Spec In Lab Duke Olivier MD CHEMISTRY ORDERABLES Performing Organization Address City/State/ZIP Code Phon e Number [address] Magnesium (09/10/2017 9:10 PM EST) P athologist Signature Magnesium 0.88 0.69 - 1.07 [facility] mmol/L [facility] LABORATORY Specimen Anatomical Collection Method Collection Time Receive d Time (Source) Location / / Volume Laterality Blood specimen 09/10/2017 9:10 PM 017 (specimen) EST 11:24 PM EST Resulting Agency Comment Spec In Lab Duke Olivier MD CHEMISTRY ORDERABLES Performing Organization Address City/[facility] Code Phon e Number [address] (ABNORMAL) Comprehensive metabolic panel (non-fasting) (09/10/2017 9:10 PM EST) athologist Signature Glucose Lvl 118 65 - 199 [facility] mg/dL [facility] LABORATORY Comment: Diabetes: >=200 mg/dL plus symp toms BUN 35 (H) 10 - 20 mg/dL [facility] LABORATORY Creatinine 1.53 (H) 0.80 - 1.50 mg/dL [facility] LABORATORY Sodium 140 135 - 145 mmol/L [facility] LABORATORY Potassium 4.6 3.5 - 5.0 mmol/L [facility] LABORATORY Comment: Please note: ??Patients with WBC >100,00 0 may have falsely elevated Potassium levels. ??For accurate Potassium quantif ication in these patients send serum separator tube (gold top) for subsequent determinations. ??Contact the Clinical Chemistry Laboratory if there are any qu estions. Chloride 101 98 - 107 mmol/L [facility] LABORATORY CO2 27 22 - 31 mmol/L [facility] LABORATORY Anion Gap 12 5 - 15 mmol/L [facility] LABORATORY Calcium 9.4 8.5 - 10.5 mg/dL [facility] LABORATORY Total Protein 7.0 6.1 - 8.0 gm/dL [facility] LABORATORY Albumin 4.1 3.2 - 5.2 gm/dL [facility] LABORATORY AST 21 0 - 39 unit/L [facility] LABORATORY ALT 26 0 - 55 unit/L [facility] LABORATORY Alk Phos 84 40 - 120 unit/L [facility] LABORATORY Total Bilirubin 0.5 0.2 - 1.3 mg/dL [facility] LABORATORY Estimated GFR 45 (L) >=60 [facility] LABORATORY Comment: The reported eGFR should be multiplied b y 1.2 for patients. The MDRD is not an appropriate measure o f renal function for patients with body mass extremes or in patients with acute kidney failure. http://[employer]/DHnkdep http://[employer]/DHMCnkf Specimen Anatomical Collection Method Collection Time Receive d Time (Source) Location / / Volume Laterality Blood specimen 09/10/2017 9:10 PM 017 9:19 (specimen) EST PM EST Resulting Agency Comment Spec In Lab Duke Olivier MD CHEMISTRY ORDERABLES Performing Organization Address City/State/ZIP Code Phon e Number [address] (ABNORMAL) pro-Brain Natriuretic Peptide (09/10/2017 9:10 PM EST) P athologist Signature ProBNP 2,704 (H) <=125 [facility] pg/mL [facility] LABORATORY Specimen Anatomical Collection Method Collection Time Receive d Time (Source) Location / / Volume Laterality Blood specimen 09/10/2017 9:10 PM 017 (specimen) EST 11:24 PM EST Resulting Agency Comment Spec In Lab Duke Olivier MD CHEMISTRY ORDERABLES Performing Organization Address City/[facility]/ZIP Code Phon e Number [address] documented in this encounter [...] (Given - Provider: Loreto Bunch, RN) 154 ([facility] Hold - Provider: Admin Adt - Reason: Transfer to a Procedural area)170 (Automatically Held - Provider: Admin Adt)190 ([facility] Unhold - Provider: Admin Adt) 80 mg, Oral, EVERY EVENING, First dose o n Thu09/11/17 at 1700, Until Discontinued, Routine budesonide-formoterol (SYMBICORT) 160-4.5 mcg/actuatio n inhaler 2 Inhalation 0828 (Given - Provider: Loreto Bunch, RN)2012 (Given - Provider: Cherry Nguyễn RN) 0817 (Given - Provider: Zachery Gaspar , LILIANE)154 ([facility] Hold - Provider: Admin Adt - Reason: Transfer to a Procedural area)1900 ([facility] Unhold - Provider: Admin Adt)2032 (Given - Provider: Charisse Rodriguez, LILIANE) 08 (Given - Provider: Alexandra Shearer RN) 2 Inhalation, Inhalation, 2 TIMES DAILY, First dose on Thu09/10/17 at 2300, Until Discontinued, Routine buPROPion (WELLBUTRIN SR) SR tablet 100 mg 0830 (Given - Provider: Loreto Bunch RN) 0805 (Given - Provider: Zachery Gaspar , LILIANE)154 ([facility] Hold - Provider: Admin Adt [...] 0810 (Given - Provider: Zachery Gaspar RN)154 ([facility] Hold - Provider: Admin Adt - Reason: Transfer to a Procedural area)1700 (Automatically Held - Provider: Admin Adt)190 ([facility] Unhold - Provider: Admin Adt) 0823 (Given - Provider: Mary Ruffin) 6.25 mg, Oral, 2 TIMES DAILY WITH MEALS, First dose on Thu09/11/17 at 0800, Until Discontinued, Routine clopidogrel (PLAVIX) tablet 75 mg 0826 (Given - Provider: Kayden Bunch RN) 1002 (Given - Provider: Zachery Gaspar, LILIANE)154 ([facility] Hold - Provider: Admin Adt - Reason: Transfer to a Procedural area)1900 ([facility] Unhold - Provider: Admin Adt) 0823 (Given - Provider: Mary Ruffin) 75 mg, Oral, DAILY, First dose on Thu at 0900, Until Discontinued, Routine docusate sodium (COLACE) capsule 100 mg 08 (Given - Provider: Loreto Bunch RN)2012 (Given - Provider: Cherry Nguyễn RN) 08 (Given - Provider: Zachery Gaspar, LILIANE)154 ([facility] Hold - Provider: Admin Adt - Reason: Transfer to a Procedural area)1900 ([facility] Unhold - Provider: Admin Adt)2032 [...] 0804 (Given - Provider: Zachery Gaspar, LILIANE)154 ([facility] Hold - Provider: Admin Adt - Reason: Transfer to a Procedural area)1900 ([facility] Unhold - Provider: Admin Adt)2032 (Given - Provider: Charisse Rodriguez RN) 0823 (Given - Provider: Mary Ruffin) 60 mg, Oral, 2 TIMES DAILY, First dose o n Magaly 09/10/17 at 2300, Until Discontinued, Routine felodipine (PLENDIL) tablet 5 mg 0829 (Given - Provider: Christina Bunch RN) 0805 (Given - Provider: Zachery Gaspar, LILIANE)154 ([facility] Hold - Provider: Admin Adt - Reason: Transfer to a Procedural area)1900 ([facility] Unhold - Provider: Admin Adt) 0823 (Given [...] 0900 (Given - Provider: Zachery Gaspar, LILIANE)154 ([facility] Hold - Provider: Admin Adt - Reason: Transfer to a Procedural area)1900 ([facility] Unhold - Provider: Admin Adt)2157 [...] (Given - Provider: Zachery Gaspar , LILIANE)154 ([facility] Hold - Provider: Admin Adt - Reason: Transfer to a Procedural area)1900 ([facility] Unhold - Provider: Admin Adt)2157 (Given - Provider: Melody Salamanca RN) 0830 (Given - Provider: Alexandra Shearer RN) 5 mL, Intravenous, EVERY 12 HOURS, First dose on Thu09/10/17 at 2130, Until Discontinued, Routine spironolactone (ALDACTONE) tablet 25 mg 08 (Given - Provider: Loreto Bunch RN) 0808 (Given - Provider: Zachery Gaspar , LILIANE)154 ([facility] Hold - Provider: Admin Adt - Reason: Transfer to a Procedural area)1900 ([facility] Unhold - Provider: Admin Adt) 0824 (Given - Provider: Mary Ruffin) 25 mg, Oral, DAILY, First dose on Thu at 1115, Until Discontinued, Routine terazosin (HYTRIN) capsule 4 mg 2013 (Given - Provider : Cherry Nguyễn RN) 1546 ([facility] Hold - Provider: Admin Adt - R cal: Transfer to a Procedural area)190 ([facility] Unhold - Provider: Admin Adt)203 (Given - Provider: Charisse Rodriguez RN) 4 mg, Oral, NIGHTLY, First dose on Magaly 1 11/10/16 at 2300, Until Discontinued, Routine tiotropium (SPIRIVA) inhalation capsule with device 18 mcg 0827 (Given - Provider: Loreto Bunch RN) 0818 (Given - Provider: Zachery Gaspar RN)1546 ([facility] Hold - Provider: Admin Adt - Reason: Transfer to a Procedural area)190 ([facility] Unhold - Provider: Admin Adt) 1003 (Given - Provider: Mary Ruffin) 18 mcg, Inhalation, DAILY, First dose on Thu09/11/17 at 0900, Until Discontinued, Routine torsemide (DEMADEX) tablet 40 mg 1546 ([facility] Hold - Provider: Admin Adt - Reason: Transfer to a Procedural area)1700 (Automatically Held - Provider: Admin Adt)190 ([facility] Unhold - Provider: Admin Adt) [...] - Reason: Transfer to a Procedural area)190 ([facility] Unhold - Provider: Admin Adt) 1 mg, [...] (CANCELED) 0 858 (Given - Provider: Loreto Bunch, LIILANE)1605 (Given - Provider: Loreto Bunch RN) 1546 ([facility] Hold - Provider: Admin Adt - Reason: Transfer to a Procedural area)1900 ([facility] Unhold - Provider: Admin Adt) 0-4,000 Units, [...] base)/3 mL nebulizer solution 3 mL 1546 ([facility] Hold - Provider: A dmin Adt - Reason: Transfer to a Procedural area)1900 ([facility] Unhold - Provider: Admin Adt) [...] RN)152 (Given - Provider: Zachery Gaspar RN)1546 ([facility] Hold - Provider: Admin Adt - Reason: Transfer to a Procedural area)1900 ([facility] Unhold - Provider: Admin Adt) 0614 (Given [...] chloride 0.9 % flush 5-20 mL 154 ([facility] Hold - Provider: Admin Adt - Reason: Transfer to a Procedural area)1900 ([facility] Unhold - Provider: Admin Adt) 5-20 mL, Intravenous, EVERY 1 MIN PRN, S tarting Magaly 09/10/17 at 2102, Until 09/15/17 at 1611, flush, Flush pertains to all indwelling lines. Flush per protocol found in the job aid using the link provided on this medication record., Routine sodium chloride 0.9 % flush 5-20 mL 154 ([facility] Hold - Provider: Admin Adt - Reason: Transfer to a Procedural area)1900 ([facility] Unhold - Provider: Admin Adt) 5-20 mL, Intravenous, EVERY 1 MIN PRN, S tarting Magaly 09/10/17 at 2102, Until 09/15/17 at 1611, flush, Flush pertains to all indwelling lines. Flush per protocol found in the job aid using the link provided on this medication record., Routine traZODone (DESYREL) tablet 100 mg 2158 (Given - Provid er: Cherry Nguyễn RN) 154 ([facility] Hold - Provider: Admin Adt - R cal: Transfer to a Procedural area)1900 ([facility] Unhold - Provider: Admin Adt)2240 [...]
Routine documented in this encounter Care Teams Supervisor Labor Gang Relationship Specialty Start Date End Date Edil Schmidt, MESFIN PCP - General 05/06/12 EMERGENCY DEPT [address] [place] [address] [place] [address] documented as of this encounter
--- OUTSIDE RECORDS SUMMARY | 2022-06-15 00:48 | XMS_ITS | Encounter Summary ---
:1945 Author Organization [place] [address] Care Team Providers Name Role Phone Papito Moore MD Primary Care Provider [phone] Reason for Visit Reason Comments Pain In Limb Encounter Details Date Type Department Care Team Description 12/17/2011 Follow-Up Pain Management at [facility] ropathic pain Juana Gary MD (Primary Dx) [facility] [place] [address] PAIN [facility]INIC [phone] [place], [place] [address] (Wo rk) Social History Tobacco [...] specified documented in this encounter Care Teams Tool Room Gear Machine Operator Relationship Specialty Start Date End Date Papito Moore MD PCP - General 09/17/10 05/05/[address] [place] [address] documented as of this encounter
--- OUTSIDE RECORDS SUMMARY | 2022-06-15 00:48 | XMS_ITS | Encounter Summary ---
:1945 [place] [address] Care Team Providers Name Role Phone Edil Schmidt APRN Primary Care Provider Encounter Details Date Type Department Care Team Description 12/10/2014 Procedure visit Sleep Center at [facility] Yee MD Central sleep apnea; [facility] Obstructive sleep apnea (shelley lt) (pediatric) [address] [place], [place] SLEEP DISORDERS [address] CENTER [phone] [place], [place] [address] Social History Tobacco Use Types [...] 4. Follow up care arranged through the [facility]. [facility] SLEEP [facility]ORD[facility]ENTER CPAP/BILEVEL REPORT Patient Name: Napoleon Jiménez Study Type: ASV with TCO2 Sex: Male Study Date: 12/10/2014 Date of : 1945 Hospital #: [id number] Age: 69 Referring Physician: Height: 6' Sleep [...] ic) documented in this encounter Care Teams Paper Plate Machine Tender Relationship Specialty Start Date End Date Edil Schmidt APRN PCP - General 05/06/12 EMERGENCY DEPT [address] [place] [address] [place] [address] documented as of this encounter
--- OUTSIDE RECORDS SUMMARY | 2022-06-15 00:48 | XMS_ITS | Encounter Summary ---
:1945 Author Organization [facility] [place] [address] Care Team Providers Name Role Phone Edil Schmidt APRN Primary Care Provider Reason for Visit Reason Onset Date Comments Other 11/15/2014 Encounter Details Date Type Department Care Team Description 11/15/2014 Telephone [facility] Amanda Mares MD Other [address] [facility] [place] [address] SLEEP DISORDERS CENTER [phone] [place] [id number] (Wo rk) Social History Tobacco Use Types [...] on filedocumented in this encounter Care Teams Manual Lathe Operator Relationship Specialty Start Date End Date Edil Schmidt APRN PCP - General 05/06/12 EMERGENCY DEPT [address] [place] [address] [place] [address] (work) documented as of this encounter
--- OUTSIDE RECORDS SUMMARY | 2022-06-15 00:48 | XMS_ITS | Encounter Summary ---
:1945 Author Organization [facility] [place] [address] Care Team Providers Name Role Phone Edil Schmidt APRN Primary Care Provider Encounter Details Date Type Department Care Team Description 09/07/2017 External Results Administration [facility] [address] [place] [phone] [place], [place] [phone] (Wo rk) Social History Tobacco Use Types [...] on filedocumented in this encounter Care Teams Chief Librarian Branch Relationship Specialty Start Date End Date Edil Schmidt APRN PCP - General 05/06/12 EMERGENCY DEPT [address] [place] [address] [place] [address] documented as of this encounter
--- OUTSIDE RECORDS SUMMARY | 2022-06-15 00:48 | XMS_ITS | Encounter Summary ---
:1945 Author Organization [facility] [place] [address] Care Team Providers Name Role Phone Edil Schmidt APRN Primary Care Provider Encounter Details Date Type Department Care Team Description 09/07/2017 Telephone Cardiology Shawnee Barone MD [facility] [place] [address] CRITICAL CARE MEDICINE [phone] [place], [place] 0[address] (Wo rk) Social History Tobacco [...] 1500 Referring Provider: Dr. Segovia Patient Location: [facility] Emergency Department Presenting Symptoms per OSH: Mr. Jiménez is a 72yo male with a known history of ASCVD, chronic heart failure, COPD and diabetes mellitus who presents to the [facility] ED with 2 days of progressive shortness [...] on filedocumented in this encounter Care Teams Landscape Laborer Relationship Specialty Start Date End Date Edil Schmidt APRN PCP - General 05/06/12 EMERGENCY DEPT [address] [place] [address] [place] [address] documented as of this encounter
--- OUTSIDE RECORDS SUMMARY | 2022-06-15 00:48 | XMS_ITS | Encounter Summary ---
:1945 [place] [address] Care Team Providers Name Role Phone Edil Schmidt APRN Primary Care Provider Encounter Details Date Type Department Care Team Description 11/15/2014 [facility] Kourtney Mares MD [facility] [address] [place] [address] [place] [address] [phone] (Wo rk) Social History Tobacco Use Types [...] on filedocumented in this encounter Care Teams [employer] Furn[employer] Relationship Specialty Start Date End Date Edil Schmidt APRN PCP - General 05/06/12 EMERGENCY DEPT [address] [place] [address] [place] [address] documented as of this encounter
--- OUTSIDE RECORDS SUMMARY | 2022-06-15 00:48 | XMS_ITS | Encounter Summary ---
:1945 Author Organization [facility] Address [facility] [address] Care Team Providers Name Role Phone Edil Schmidt APRN Primary Care Provider Reason for Visit Auth/Cert Specialty Diagnoses / Procedures Referred By Contact Refer red To Contact Diagnoses Heart failure CHF/new cardiomyopathy/ abnormal Lexiscan stress Procedures TAMMY IPI Referral ID Status Reason Start Date Expiration Date Visits Requ ested Visits Authorized [id number] 1 1 Encounter Details Date Type Department Care Team Description 09/14/2017 Surgery [employer] Instructor Jazmin Lou MD CARDIAC CATHETERIZATION [facility] [place] [address] [place] [address] [phone] Social History Tobacco Use Types Packs/Day Years [...] patient presented with: non-STEMI (w/i 7 days). [place] [employer] angina class was IV. This [...] dose administered prior to arrival in the [employer]. ? Recommend continuing clopidogrel 75 mg PO [...] COPD and DM who presented initially to [facility] with chief complaint of shortness of [...] called an ambulance and was admitted to [facility]. At baseline required only nightly 2.5L [...] ? He was admitted on 09/07 at [facility] and treated initially for ACS given elevated trop in context of dyspnea (trop peaked at 0.15). A stress test was notable for a fixed defect only. He was being prepared for discharge when this morning he tried going to bathroom this morning at [facility] and was markedly dyspneic. For this reason he and his providers at [facility] Other notable labs Cr 1.5, WBC 12, [...] first stent, additional stent placed. --??Heart catheterization, [facility]: ?20% distal LM, mild [...] 50 mg Refills: 0 nitroGLYcerin 400 mcg/spray [place] Commonly known as: NITROLINGUAL Place 1 spray [...] MD Your Primary Care Provider: Edil Schmidt, SHREDDER PICKER [phone] For questions regarding this document or issues relating to this hospitalization on the Medical Service, please contact your inpatient physician through the [facility] Foot Setter . Issues after hours and on weekends will be handled by the Hospitalist staff on-call. For questions regarding this document or issues relating to this hospitalization on the Medical Service, please contact your inpatient physician through the [facility] Setter . Issues after hours and on weekends will be handled by the Financial Planning Consultant staff on-call. Signed: Margret Sullivan MD documented [...] Your Primary Care Provider: Edil Draper Brayan, SHREDDER PICKER [phone] For questions regarding this document or issues relating to this hospitalization on the Medical Service, please contact your inpatient physician through the [facility]ter . Issues after hours and on weekends [...] (NITROLINGUAL) 400 the tongue every 5 mcg/spray [place], minutes as needed Non-Aerosol for Chest pain. [...] [facility]. Code Status: Full Summary [...] 6:48 AM EST Cardiac/Telemetry Nursing Progress Note [id number] Subjective: I'm feeling much better Objective: No complaints of SOB or chest pain Vital Signs: See Vital signs below Cardiac Meds: See online MAR Labs: See labs in online chart. Assessment: HR 50-80 SB/ SR Rate down to 47 non sust Rare PVCs IL 0.20 QRS 0.11 RR 0.95 QTc 0.47 [...] DO PGY 2 - Internal Medicine Pager [phone] 09/15/2017 Zachery Lopez RN - 09/14/2017 7:13 PM EST 1900: Pt arrived to bed 442B from [employer] recovery, awake, alert, OX4, (-) right groin [...] Today Cath today Margret Sullivan MD M1-S2, [id number] 09/14/17 STAFF ADDENDUM Patient interviewed and examined. [...] midnight for cath Margret Sullivan MD M1-S2, 2997 09/13/17 STAFF ADDENDUM Patient interviewed and examined. [...] ACS treatment Michael Terry PGY-3 S2 Pager [phone] STAFF ADDENDUM Patient interviewed and examined. Medical [...] pt eats a lot of frozen meals. Fuel Cell Technician informed pt/ family how many milligrams of [...] and spices to incorporate flavor in foods. Fuel Cell Technician provided extra pepper and Mrs. Torres to [...] Admission Date: 09/10/2017 Covering Team: S2, Pager #[phone] Problem List: Active Hospital Problems Heart failure [...] Extremities: Trace lower extremity edema bilaterally Neuro: dance coach II-XII intact, strength grossly intact bilaterally in [...] 182 195 No results for input(s): PHART, VEH0ERK, PO2ART, ZBL6CUW in the last 168 hours. No results [...] a chief complaintof shortness of breath. At [facility] he effectively ruled out for ACS [...] today - Monitor creatinine Margret Sullivan MD, #[id number] PGY1 Internal Medicine 09/11/2017 Cardiology S2 Team, Pager #[phone] STAFF ADDENDUM Patient interviewed and examined. Medical [...] Hospital Admit Date: 09/10/2017 Inpatient Attending: Dr. Olviier PCP: Edil Schmidt APRN Presenting Diagnosis/Chief Complaint: Shortness of breath History of Present Illness: Darren Valentine is a 72 y.o. male with HTN, ASCVD sp CABG in 2007, chronic heart failure, COPD and DM who presented initially to [facility] with chief complaint of shortness of [...] called an ambulance and was admitted to [facility]. At baseline required only nightly 2.5L [...] past. He was admitted on 09/07 at [facility] and treated initially for ACS given elevated trop in context of dyspnea (trop peaked at 0.15). A stress test was notable for a fixed defect only. He was being prepared for discharge when this morning he tried going to bathroom this morning at [facility] and was markedly dyspneic. For this reason he and his providers at [facility] decided [facility] Other notable labs Cr 1.5, WBC 12, [...] stent, additional stent placed. 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 Smoking status: Former Smoker Quit date: 10/26/1991 ??? Smokeless tobacco: Not on file ??? Alcohol use No ??? Drug use: Not on file ??? Sexual activity: Not on file Other Topics Concern ??? Not on file Social History Narrative Lives with in [place], [place]. Has [facility] services as he is 100% connected due to [place]. Worked for the [employer] in [place] in the past. Family History: Family [...] mouth daily. ??? nitroGLYcerin (NITROLINGUAL) 400 mcg/spray [place], Non-Aerosol Place 1 spray under the tongue [...] Extremities: Trace lower extremity edema bilaterally Neuro: dance coach II-XII intact, strength grossly intact bilaterally in [...] x10(3)/mcL Imaging/Diagnostics: NM stress test performed at [facility] on 09/09/17 showed large fixed defect in the apical inferior, inferolateral, and apical dempsey. TTE at [facility] showed LVEF 40-45% with diffuse hypokinesis, moderate AR, TR, and MR; pasp 40 CXR on admission without acute ischemic changes. ASSESSMENT and PLAN: Darren Valentine is a 72 y.o. male with prior CABG, COPD, HTN, and DM admitted with a chief complaintof shortness of breath. At [facility] he effectively ruled out for ACS [...] in the outpatient cardiac rehabilitation program at [facility] was discussed. Patient agrees to a [...] Overview Goal: Plan of Care Review 09/13/17 [id number] Plan of Care Review Progress progress toward [...] plan moving forward is to go to picket labor union in the am and he plans to [...] Admission: indepedent Home Environment: Lives with in [place], [place] Social & Family Supports/Community Resources: 4 adult step children. All live nearby and are supportive Behavioral Health History: none Substance Use/Abuse: n/a Other Pertinent/Service Specific Information: Has O2 at home. Health/Prescription Coverage: Primary Insurance: [employer] Secondary Insurance: MEDICARE Prescription Coverage: yes [facility] Other[facility] Primary Care Provider: Edil Schmidt, SHREDDER PICKER [phone] Patient/Caregiver Goals of Treatment: home when stable [...] transition of care planning. ELZBIETA Cardona Pager: [phone] Plan of Care - Jacy Samuels RN [...] Name Priority Date/Time Associated Diagnosis Comme nts NETTING WEAVER SCAN 09/16/2017 12:00 Res ults for this [...] Timed 09/14/2017 8:34 Results f or this ([facility] PM EST procedure are i n the [...] Routine 09/12/2017 6:02 Results f or this ([facility] AM EST procedure are i n the [...] ENZYMES Routine 09/12/2017 12:20 Results for this ([facility] AM EST procedure are i n the [...] Routine 09/11/2017 4:53 Results f or this ([facility]) PM EST procedure are i n the [...] ENZYMES Routine 09/11/2017 10:46 Results for this ([facility] AM EST procedure are i n the results section. POCT GLUCOSE Routine 09/11/2017 7:32 Results for this AM EST procedure are i n the results section. LAVENDER TUBE HOLD Routine 09/11/2017 5:05 Result s for this AM EST procedure are i n the results section. CARDIAC ENZYMES Routine 09/11/2017 5:05 Results f or this ([facility] AM EST procedure are i n the [...] Routine 09/10/2017 9:10 Results f or this ([facility] PM EST procedure are i n the [...] documented in this encounter Results SCAN DOC: NETTING WEAVER (09/16/2017 12:00 AM EST) Narrative 09/16/2017 12:00 AM EST This result has an attachment that is no t available. Ordered by an unspecified provider. Scanning Provider MEDIA MGR SCAN EXT ORDR/RSLT POCT Glucose (09/15/2017 12:18 PM EST) athologist Signature POC Glucose 182 65 - 199 [place] mg/dL [facility] Comment: Supplemental ranges: <140 mg/dL before meals <180 mg/dL all other times of the day Specimen Anatomical Collection Method Collection Time Receive d Time (Source) Location / / Volume Laterality Blood specimen 09/15/2017 12:18 7 (specimen) PM EST 12:18 PM EST Karyn Soliz MD POINT OF CARE TEST ORDERABLE S Performing Organization Address City/State/ZIP Code Phon e Number [address] POCT Glucose (09/15/2017 11:30 AM EST) athologist Signature POC Glucose 187 65 - 199 [place] mg/dL [facility] Comment: Supplemental ranges: <140 mg/dL before meals <180 mg/dL all other times of the day Specimen Anatomical Collection Method Collection Time Receive d Time (Source) Location / / Volume Laterality Blood specimen 09/15/2017 11:30 7 (specimen) AM EST 11:30 AM EST Karyn Soliz MD POINT OF CARE TEST ORDERABLE S Performing Organization Address City/State/ZIP Code Phon e Number [address] POCT Glucose (09/15/2017 6:56 AM EST) athologist Signature POC Glucose 102 65 - 199 [facility] LEON mg/dL [facility] Comment: Supplemental ranges: <140 mg/dL before meals <180 mg/dL all other times of the day Specimen Anatomical Collection Method Collection Time Receive d Time (Source) Location / / Volume Laterality Blood specimen 09/15/2017 6:56 AM 017 6:56 (specimen) EST AM EST Karyn Soliz MD POINT OF CARE TEST ORDERABLE S Performing Organization Address City/State/ZIP [place] [address] (ABNORMAL) Differential, Automated (09/15/2017 5:31 AM EST) [facility] Method Time Signature Neutrophils % 75.0 % [facility] Neutr Abs (ANC) 7.96 (H) 1.70 - [facility] 6.10 [facility] x10(3)/[facility] LABORATORY Lymphocytes % 11.3 % [facility] Lymphocytes Abs 1.2 0.9 - 3.2 [facility] x10(3)/[facility] LABORATORY Monocytes % 11.3 % [facility] Monocyte Abs 1.2 (H) 0.3 - 0.9 [facility] x10(3)/[facility] LABORATORY Eosinophils % 1.4 % [facility] Eosinophils Abs 0.2 0.0 - 0.4 [facility] x10(3)/[facility] LABORATORY Basophils % 0.6 % [facility] Basophils Abs 0.1 0.0 - 0.1 [facility] x10(3)/[facility] LABORATORY Immature Gran % 0.40 % [facility] Comment: Immature granulocytes(IG's)percentage an d absolute count will include metamyelocytes, myelocytes, and promyelo cytes. Blood smears from CBCs yielding IG's will be scanned manually for concor dance. If this scan disagrees with the automated IG or if promyelocytes are not ed, a manual differential will be performed. Kayla Gran Abs 0.04 0.00 - 0.04 x10(3)/[facility] MAR Y [facility] LABORATORY Specimen Anatomical Collection Method Collection Time Receive d Time (Source) Location / / Volume Laterality Blood specimen 09/15/2017 5:31 AM 017 5:45 (specimen) EST AM EST Resulting Agency Comment Spec In Lab Duke Olivier MD HEMATOLOGY ORDERABLES Performing Organization Address City/State/ZIP Code Phon e Number [place] [phone] (ABNORMAL) Hemogram (09/15/2017 5:31 AM EST) Analysis Performed At Patho logist Time Signature WBC 10.6 (H) 4.0 - 9.5 [facility] x10(3)/[facility] LABORATORY RBC 4.31 (L) 4.58 - [place] 5.54 [facility] x10(6)/[facility] LABORATORY Hemoglobin 12.0 (L) 13.7 - [facility] 16.5 gm/dL [facility] LABOR[facility] Hematocrit 38.7 (L) 40.5 - [facility] 48.5 % [facility]ORY MCV 89.8 82.9 - [facility] 93.1 [facility] LABORATORY MCH 27.8 27.5 - [facility] 32.1 pg [facility] LABORATORY MCHC 31.0 (L) 32.0 - [facility] 35.[facility] gm/dL [facility] Platelets 201 145 - 357 [facility] x10(3)/[facility] LABORATORY RDWSD 47.9 (H) 36.0 - [facility] 45.0 [facility] LABORATORY RDWCV 14.6 (H) 11.4 - [facility] 13.8 % [facility] LABORATORY MPV 10.3 7.6 - 12.9 [facility] LABORATORY nRBC % Auto 0.0 % [facility] nRBC Abs Auto 0.000 0.000 - [facility] LEON 0.000 [facility] x10(3)/[facility] LABORATORY Specimen Anatomical Collection Method Collection Time Receive d Time (Source) Location / / Volume Laterality Blood specimen 09/15/2017 5:31 AM 017 5:45 (specimen) EST AM EST Resulting Agency Comment Spec In Lab Duke Olivier MD HEMATOLOGY ORDERABLES Performing Organization Address City/State/ZIP [place] [address] Magnesium (09/15/2017 5:31 AM EST) P athologist Signature Magnesium 0.88 0.69 - 1.07 [facility] mmol/L [facility] LABORATORY Specimen Anatomical Collection Method Collection Time Receive d Time (Source) Location / / Volume Laterality Blood specimen 09/15/2017 5:31 AM 017 5:45 (specimen) EST AM EST Resulting Agency Comment Spec In Lab Duke Olivier MD CHEMISTRY ORDERABLES Performing Organization Address City/State/ZIP [place] [address] (ABNORMAL) Basic Metabolic Panel (non-fasting) (09/15/2017 5:31 AM EST) athologist Signature Glucose Lvl 86 65 - 199 [facility] mg/dL [facility] Comment: Diabetes: >=200 mg/dL plus symp toms BUN 38 (H) 10 - 20 mg/dL [facility] Creatinine 1.63 (H) 0.80 - 1.50 mg/dL [facility] Sodium 142 135 - 145 mmol/L [facility] Potassium 3.7 3.5 - 5.0 mmol/L [facility] Comment: Please note: ??Patients with WBC >100,00 0 may have falsely elevated Potassium levels. ??For accurate Potassium quantif ication in these patients send serum separator tube (gold top) for subsequent determinations. ??Contact the Clinical Chemistry Laboratory if there are any qu estions. Chloride 102 98 - 107 mmol/L [facility] CO2 26 22 - 31 mmol/L [facility] Anion Gap 14 5 - 15 mmol/L [facility] Calcium 8.7 8.5 - 10.5 mg/dL [facility] Estimated GFR 42 (L) >=60 [facility] Comment: The reported eGFR should be multiplied b y 1.2 for patients. The MDRD is not an appropriate measure o f renal function for patients with body mass extremes or in patients with acute kidney failure. http://valuklik/DHnkdep http://valuklik/DHMCnkf Specimen Anatomical Collection Method Collection Time Receive d Time (Source) Location / / Volume Laterality Blood specimen 09/15/2017 5:31 AM 017 5:45 (specimen) EST AM EST Resulting Agency Comment Spec In Lab Duke Olivier MD CHEMISTRY ORDERABLES Performing Organization Address City/State/[place] [address] POCT Glucose (09/15/2017 4:07 AM EST) athologist Signature POC Glucose 78 65 - 199 [place] mg/dL [facility] Comment: Supplemental ranges: <140 mg/dL before meals <180 mg/dL all other times of the day Specimen Anatomical Collection Method Collection Time Receive d Time (Source) Location / / Volume Laterality Blood specimen 09/15/2017 4:07 AM 017 4:07 (specimen) EST AM EST Karyn Soliz MD POINT OF CARE TEST ORDERABLE S Performing Organization Address City/[facility]/[place] [address] (ABNORMAL) POCT Glucose (09/15/2017 12:00 AM EST) athologist Signature POC Glucose 201 (H) 65 - 199 [facility] mg/dL [facility] Comment: Supplemental ranges: <140 mg/dL before meals <180 mg/dL all other times of the day Specimen (Source) Anatomical Collection Method Collection Time Re ceived Time Location / / Volume Laterality Blood specimen 09/15/2017 09/15/2017 12 :00 (specimen) AM EST Karyn Soliz MD POINT OF CARE TEST ORDERABLE S Performing Organization Address City/State/[place] [address] (ABNORMAL) Cardiac Enzymes (LEB/CGP) (09/14/2017 8:34 PM EST) athologist Signature Troponin-T 0.03 (H) 0.00 - [place] 0.00 ng/mL [facility] Comment: The 99th percentile for Troponin T is le ss than 0.01 ng/mL, any detectable cTnT concentration using this assay should be considered elevated. According to the third universal definit ion of myocardial infarction the following criteria with a clinical prese ntation consistent with acute myocardial ischemia meets the diagnosis for a myocardial infarction (NC). Detection of a rise and/or fall of [...] additional sample may be indicated. Reference: Third [place] Definition of Myocardial Infarction. Journal of the [place] College [employer] Cardiology 2012;60:1581-98 CK, Total 88 0 - 200 unit/L [facility] Specimen Anatomical Collection Method Collection Time Receive d Time (Source) Location / / Volume Laterality Blood specimen 09/14/2017 8:34 PM 017 8:44 (specimen) EST PM EST Resulting Agency Comment Spec In Lab Karyn Soliz MD CHEMISTRY ORDERABLES Performing Organization Address City/[facility]/[place] [address] POCT Glucose (09/14/2017 8:22 PM EST) P athologist Signature POC Glucose 190 65 - 199 [facility] mg/dL [facility] Comment: Supplemental ranges: <140 mg/dL before meals <180 mg/dL all other times of the day Specimen Anatomical Collection Method Collection Time Receive d Time (Source) Location / / Volume Laterality Blood specimen 09/14/2017 8:22 PM 017 8:22 (specimen) EST PM EST Karyn Soliz MD POINT OF CARE TEST ORDERABLE S Performing Organization Address City/[facility]/[place] [address] EKG 12 Lead (09/14/2017 5:44 PM EST) Component Value Ref Range Test Analysis Performed Pathologis t Method Time At Signature Ventricular rate 62 BPM MUSE SYSTEM Atrial Rate 62 BPM MUSE SYSTEM P-R Interval 160 ms MUSE SYSTEM QRS Duration 98 ms MUSE SYSTEM Q-T Interval 508 ms MUSE SYSTEM QTC Calculated 515 ms MUSE SYSTEM (Bezet) Calculated P [place] -5 degrees MUSE SYSTEM Calculated R [place] 50 degrees MUSE SYSTEM Calculated T [place] 49 degrees MUSE SYSTEM INTERPRETATION Normal sinus [...] Signature POC Glucose 116 65 - 199 [facility] mg/dL [facility] Comment: Supplemental ranges: <140 mg/dL before meals <180 mg/dL all other times of the day Specimen Anatomical Collection Method Collection Time Receive d Time (Source) Location / / Volume Laterality Blood specimen 09/14/2017 5:29 PM 017 5:29 (specimen) EST PM EST Karyn Soliz MD POINT OF CARE TEST ORDERABLE S Performing Organization Address City/State/ZIP Code Phon e Number [place] [phone] CARDIAC CATHETERIZATION (09/14/2017 5:10 PM EST) Specimen (Source) Anatomical Location Collection Method / Collectio n Time Received Time / Laterality Volume Narrative CARDIOMAC SYSTEM - 09/14/2017 5:33 PM ES T ?[facility] ? Cardiac Cathete rization/Intervention Report ? Patient Name: [place], Darren M. ? Procedure Date: 09/14/2017 ? A #: [id number] ? Primary Physician: Damion, Mariana ? Case #: [id number] ? File Name: [id number] ? Catheterization Order Number: [id number] ? [facility] ? Final Report [place], [place] ? Patient Name: ? Darren M. Whitti er ? ID#: ?[id number] ? : ?1945 ? Procedure Date: ? November 20, 20 17 ?Case #: ? [id number] ? Room: ? 5 ? Case Physician: ? Daisy Mcodnald ? Start: ?16:10 ?Fellow: ? Zac Topete [...] presented with: non -STEMI (w/i 7 days). [place] ?[employer]iovascular Society angina c lass was IV. [...] dose administered prior to arrival in the [employer]. ?Recommend continuing clopidogre l 75 mg PO [...] note might be different from the original. [facility] Cardiac Catheterization/Intervention Re port Patient Name: Darren Valentine Procedure Date: 09/14/2017 A #: [id number] Primary Physician: Mariana Bruno Case #: [id number] File Name: [id number] Catheterization Order Number: [id number] [facility] Final Report [place], [place] Patient Name: Darren Valentine ID#: [...] presented with: non-STEMI ( w/i 7 days). [employer] angina class was IV. This [...] administered prior t o arrival in the [employer]. Recommend continuing clopidogrel 75 mg PO daily [...] angiography, left heart catheterization, bypass graft study, [facility] heart catheterization, oximetry, access site angiography and stent inser tion-bypass graft. Mariana Bruno M.D. Electronically Signed by: Edgar Mcdonald Report Finalized: 09/14/2017 17:25 Report Last Ammended: 01/22/2018 10:35 Mariana Bruno MD CARDIAC CATH ORDERABLES Performing Organization Address City/State/ZIP Code Phon e Number CARDIOMAC SYSTEM POCT Glucose (09/14/2017 11:00 AM EST) athologist Signature POC Glucose 150 65 - 199 [place] mg/dL [facility]ORY Comment: Supplemental ranges: <140 mg/dL before meals <180 mg/dL all other times of the day Specimen Anatomical Collection Method Collection Time Receive d Time (Source) Location / / Volume Laterality Blood specimen 09/14/2017 11:00 7 (specimen) AM EST 11:00 AM EST Karyn Soliz MD POINT OF CARE TEST ORDERABLE S Performing Organization Address City/[facility]/ZIP Code Phon e Number [address] POCT Glucose (09/14/2017 7:36 AM EST) athologist Signature POC Glucose 160 65 - 199 [facility] [place] mg/dL [facility] Comment: Supplemental ranges: <140 mg/dL before meals <180 mg/dL all other times of the day Specimen Anatomical Collection Method Collection Time Receive d Time (Source) Location / / Volume Laterality Blood specimen 09/14/2017 7:36 AM 017 7:36 (specimen) EST AM EST Karyn Soliz MD POINT OF CARE TEST ORDERABLE S Performing Organization Address City/[facility]/ZIP Code Phon e Number [address] POCT Glucose (09/14/2017 4:07 AM EST) athologist Signature POC Glucose 124 65 - 199 [facility]dL [facility] Comment: Supplemental ranges: <140 mg/dL before meals <180 mg/dL all other times of the day Specimen Anatomical Collection Method Collection Time Receive d Time (Source) Location / / Volume Laterality Blood specimen 09/14/2017 4:07 AM 017 4:07 (specimen) EST AM EST Karyn Soliz MD POINT OF CARE TEST ORDERABLE S Performing Organization Address City/State/ZIP [place] [address] (ABNORMAL) Differential, Automated (09/14/2017 4:02 AM EST) [facility] Method Time Signature Neutrophils % 70.0 % [facility] Neutr Abs (ANC) 7.56 (H) 1.70 - [facility] 6.10 [facility] x10(3)/[facility] LABORATORY Lymphocytes % 15.6 % [facility] Lymphocytes Abs 1.7 0.9 - 3.2 [facility] x10(3)/[facility] LABORATORY Monocytes % 11.3 % [facility] Monocyte Abs 1.2 (H) 0.3 - 0.9 [facility] x10(3)/[facility] LABORATORY Eosinophils % 1.9 % [facility] Eosinophils Abs 0.2 0.0 - 0.4 [facility] x10(3)/[facility] LABORATORY Basophils % 0.6 % [facility] Basophils Abs 0.1 0.0 - 0.1 [facility] x10(3)/[facility] LABORATORY Immature Gran % 0.60 % [facility] Comment: Immature granulocytes(IG's)percentage an d absolute count will include metamyelocytes, myelocytes, and promyelo cytes. Blood smears from CBCs yielding IG's will be scanned manually for concor dance. If this scan disagrees with the automated IG or if promyelocytes are not ed, a manual differential will be performed. Kayla Gran Abs 0.06 (H) 0.00 - 0.04 x10(3)/[facility] LABORATORY Specimen Anatomical Collection Method Collection Time Receive d Time (Source) Location / / Volume Laterality Blood specimen 09/14/2017 4:02 AM 017 4:29 (specimen) EST AM EST Resulting Agency Comment Spec In Lab Duke Olivier MD HEMATOLOGY ORDERABLES Performing Organization Address City/State/[place] [address] (ABNORMAL) Hemogram (09/14/2017 4:02 AM EST) Analysis Performed At Patho logist Time Signature WBC 10.8 (H) 4.0 - 9.5 [facility] x10(3)/[facility] LABORATORY RBC 4.38 (L) 4.58 - [place] 5.54 [facility] x10(6)/[facility] LABORATORY Hemoglobin 12.5 (L) 13.7 - [facility] 16.5 gm/dL [facility] Hematocrit 38.2 (L) 40.5 - [facility] 48.5 % [facility] LAB[facility]ORY MCV 87.2 82.9 - [facility] 93.1 [facility] LABORATORY MCH 28.5 27.5 - [facility] 32.1 pg [facility] LABORATORY MCHC 32.7 32.0 - [place] 35.7 gm/dL [facility] Platelets 212 145 - 357 [facility] x10(3)/[facility] LABORATORY RDWSD 46.8 (H) 36.0 - [place] 45.0 [facility] LABORATORY RDWCV 14.6 (H) 11.4 - [facility] [place] 13.8 % [facility] LABORATORY MPV 10.5 7.6 - 12.9 [facility] LABORATORY nRBC % Auto 0.0 % [facility] nRBC Abs Auto 0.000 0.000 - [facility] [place] 0.000 [facility] x10(3)/[facility] LABORATORY Specimen Anatomical Collection Method Collection Time Receive d Time (Source) Location / / Volume Laterality Blood specimen 09/14/2017 4:02 AM 017 4:29 (specimen) EST AM EST Resulting Agency Comment Spec In Lab Duke Olivier MD HEMATOLOGY ORDERABLES Performing Organization Address City/[facility]/ZIP [place] [address] (ABNORMAL) APTT (09/14/2017 4:02 AM EST) athologist Signature PTT 111 (H) 25 - [address] [facility] Comment: The recommended therapeutic range for fu ll dose, unfractionated [place] [facility] is 80 ? 114 seconds. The use [...] Soliz MD HEMATOLOGY ORDERABLES Performing Organization Address City/[facility]/ZIP Code Phon e Number [address] Magnesium (09/14/2017 4:02 AM EST) athologist Signature Magnesium 0.97 0.69 - 1.07 [facility] mmol/L [facility] LABOR[facility]ORY Specimen Anatomical Collection Method Collection Time Receive d Time (Source) Location / / Volume Laterality Blood specimen 09/14/2017 4:02 AM 017 4:29 (specimen) EST AM EST Resulting Agency Comment Spec In Lab Duke Olivier MD CHEMISTRY ORDERABLES Performing Organization Address City/[facility] Phon e Number [address] (ABNORMAL) Basic Metabolic Panel (non-fasting) (09/14/2017 4:02 AM EST) athologist Signature Glucose Lvl 112 65 - 199 [facility] mg/dL [facility] Comment: Diabetes: >=200 mg/dL plus symp toms BUN 45 (H) 10 - 20 mg/dL [facility] Creatinine 1.68 (H) 0.80 - 1.50 mg/dL [facility] Sodium 140 135 - 145 mmol/L [facility] Potassium 3.9 3.5 - 5.0 mmol/L [facility] Comment: Please note: ??Patients with WBC >100,00 0 may have falsely elevated Potassium levels. ??For accurate Potassium quantif ication in these patients send serum separator tube (gold top) for subsequent determinations. ??Contact the Clinical Chemistry Laboratory if there are any qu estions. Chloride 99 98 - 107 mmol/L [facility] CO2 25 22 - 31 mmol/L [facility] Anion Gap 16 (H) 5 - 15 mmol/L [facility] Calcium 8.9 8.5 - 10.5 mg/dL [facility] Estimated GFR 41 (L) >=60 [facility] Comment: The reported eGFR should be multiplied b y 1.2 for patients. The MDRD is not an appropriate measure o f renal function for patients with body mass extremes or in patients with acute kidney failure. http://valuklik/DHnkdep http://valuklik/DHMCnkf Specimen Anatomical Collection Method Collection Time Receive d Time (Source) Location / / Volume Laterality Blood specimen 09/14/2017 4:02 AM 017 4:29 (specimen) EST AM EST Resulting Agency Comment Spec In Lab Duke Olivier MD CHEMISTRY ORDERABLES Performing Organization Address City/State/ZIP Code Phon e Number [address] POCT Glucose (09/13/2017 11:54 PM EST) P athologist Signature POC Glucose 102 65 - 199 [facility] mg/dL [facility] Comment: Supplemental ranges: <140 mg/dL before meals <180 mg/dL all other times of the day Specimen Anatomical Collection Method Collection Time Receive d Time (Source) Location / / Volume Laterality Blood specimen 09/13/2017 11:54 7 (specimen) PM EST 11:54 PM EST Karyn Soliz MD POINT OF CARE TEST ORDERABLE S Performing Organization Address City/State/[place] [address] (ABNORMAL) APTT (09/13/2017 9:48 PM EST) P athologist Signature PTT 94 (H) 25 - [address] [facility] Comment: The recommended therapeutic range for fu ll dose, unfractionated heparin [place] [facility] [place] is 80 ? 114 seconds. The use [...] Organization Address City/State/ZIP Code Phon e Number [address] (ABNORMAL) POCT Glucose (09/13/2017 8:12 PM EST) athologist Signature POC Glucose 203 (H) 65 - 199 [facility] mg/dL [facility] Comment: Supplemental ranges: <140 mg/dL before meals <180 mg/dL all other times of the day Specimen Anatomical Collection Method Collection Time Receive d Time (Source) Location / / Volume Laterality Blood specimen 09/13/2017 8:12 PM 017 8:12 (specimen) EST PM EST Karyn Soliz MD POINT OF CARE TEST ORDERABLE S Performing Organization Address City/[facility]/[place] [address] POCT Glucose (09/13/2017 5:20 PM EST) athologist Signature POC Glucose 130 65 - [address] [facility] mg/dL [facility] Comment: Supplemental ranges: <140 mg/dL before meals <180 mg/dL all other times of the day Specimen Anatomical Collection Method Collection Time Receive d Time (Source) Location / / Volume Laterality Blood specimen 09/13/2017 5:20 PM 017 5:20 (specimen) EST PM EST Karyn Soliz MD POINT OF CARE TEST ORDERABLE S Performing Organization Address City/State/[place] [address] (ABNORMAL) APTT (09/13/2017 3:10 PM EST) athologist Signature PTT 71 (H) 25 - [address] [facility] Comment: The recommended therapeutic range for fu ll dose, unfractionated heparin [place] [facility] [place] is 80 ? 114 seconds. The use [...] Soliz MD HEMATOLOGY ORDERABLES Performing Organization Address City/[facility]/ZIP [facility] Phon e Number [address] POCT Glucose (09/13/2017 11:27 AM EST) athologist Signature POC Glucose 191 65 - 199 [facility] mg/dL [facility] Comment: Supplemental ranges: <140 mg/dL before meals <180 mg/dL all other times of the day Specimen Anatomical Collection Method Collection Time Receive d Time (Source) Location / / Volume Laterality Blood specimen 09/13/2017 11:27 7 (specimen) AM EST 11:27 AM EST Karyn Soliz MD POINT OF CARE TEST ORDERABLE S Performing Organization Address City/State/[place] [address] POCT Glucose (09/13/2017 8:10 AM EST) athologist Signature POC Glucose 124 65 - 199 [facility] mg/dL [facility] Comment: Supplemental ranges: <140 mg/dL before meals <180 mg/dL all other times of the day Specimen Anatomical Collection Method Collection Time Receive d Time (Source) Location / / Volume Laterality Blood specimen 09/13/2017 8:10 AM 017 8:10 (specimen) EST AM EST Karyn Soliz MD POINT OF CARE TEST ORDERABLE S Performing Organization Address City/State/[place] [address] (ABNORMAL) APTT (09/13/2017 7:33 AM EST) athologist Signature PTT 68 (H) 25 - [address] [facility] Comment: The recommended therapeutic range for fu ll dose, unfractionated heparin [place] [facility] is 80 ? 114 seconds. The use [...] Soliz MD HEMATOLOGY ORDERABLES Performing Organization Address City/[facility]/[place] [address] POCT Glucose (09/13/2017 3:50 AM EST) athologist Signature POC Glucose 111 65 - 199 [facility] mg/dL [facility] Comment: Supplemental ranges: <140 mg/dL before meals <180 mg/dL all other times of the day Specimen Anatomical Collection Method Collection Time Receive d Time (Source) Location / / Volume Laterality Blood specimen 09/13/2017 3:50 AM 017 3:50 (specimen) EST AM EST Karyn Soliz MD POINT OF CARE TEST ORDERABLE S Performing Organization Address City/State/[place] [address] (ABNORMAL) Differential, Automated (09/13/2017 1:20 AM EST) Patholo gist Method Time Signature Neutrophils % 72.8 % [facility] Neutr Abs (ANC) 8.12 (H) 1.70 - [facility] 6.10 [facility] x10(3)/[facility] L LABORATORY Lymphocytes % 14.8 % [facility] Lymphocytes Abs 1.6 0.9 - 3.2 [facility] x10(3)/[facility] LABORATORY Monocytes % 9.9 % [facility] Monocyte Abs 1.1 (H) 0.3 - 0.9 [facility] x10(3)/[facility] LABORATORY Eosinophils % 1.6 % [facility] Eosinophils Abs 0.2 0.0 - 0.4 [facility] x10(3)/[facility] LABORATORY Basophils % 0.5 % [facility] Basophils Abs 0.1 0.0 - 0.1 [facility] x10(3)/[facility] LABORATORY Immature Gran % 0.40 % [facility] Comment: Immature granulocytes(IG's)percentage an d absolute count will include metamyelocytes, myelocytes, and promyelo cytes. Blood smears from CBCs yielding IG's will be scanned manually for concor dance. If this scan disagrees with the automated IG or if promyelocytes are not ed, a manual differential will be performed. Kayla Gran Abs 0.05 (H) 0.00 - 0.04 x10(3)/[facility] LABORATORY Specimen Anatomical Collection Method Collection Time Receive d Time (Source) Location / / Volume Laterality Blood specimen 09/13/2017 1:20 AM 017 1:25 (specimen) EST AM EST Resulting Agency Comment Spec In Lab Duke Olivier MD HEMATOLOGY ORDERABLES Performing Organization Address City/State/ZIP [place] [address] (ABNORMAL) Hemogram (09/13/2017 1:20 AM EST) Analysis Performed At Patho logist Time Signature WBC 11.2 (H) 4.0 - 9.5 [facility] x10(3)/[facility] LABORATORY RBC 4.17 (L) 4.58 - [facility] 5.54 [facility] x10(6)/[facility] LABORATORY Hemoglobin 11.8 (L) 13.7 - [facility] 16.5 gm/dL [facility] LABORATORY Hematocrit 36.3 (L) 40.5 - [facility] 48.5 % [facility] LABORATORY MCV 87.1 82.9 - [place] 93.1 [facility] LABORATORY MCH 28.3 27.5 - [place] 32.1 pg [facility] LABORATORY MCHC 32.5 32.0 - [place] 35.7 gm/dL [facility] LABORATORY Platelets 181 145 - 357 [facility] x10(3)/[facility] LABORATORY RDWSD 46.5 (H) 36.0 - [place] 45.0 [facility] LABORATORY RDWCV 14.6 (H) 11.4 - [facility] [place] 13.8 % [facility] LABORATORY MPV 10.4 7.6 - 12.9 [facility] LABORATORY nRBC % Auto 0.0 % [facility] nRBC Abs Auto 0.000 0.000 - [place] 0.000 [facility] x10(3)/[facility] LABORATORY Specimen Anatomical Collection Method Collection Time Receive d Time (Source) Location / / Volume Laterality Blood specimen 09/13/2017 1:20 AM 017 1:25 (specimen) EST AM EST Resulting Agency Comment Spec In Lab Duke Olivier MD HEMATOLOGY ORDERABLES Performing Organization Address City/State/ZIP Code Phon e Number [address] (ABNORMAL) APTT (09/13/2017 1:20 AM EST) athologist Signature PTT 80 (H) 25 - [address] [facility] Comment: The recommended therapeutic range for fu ll dose, unfractionated heparin [place] [facility] is 80 ? 114 seconds. The use [...] Organization Address City/State/[place] [address] Magnesium (09/13/2017 1:20 AM EST) athologist Signature Magnesium 0.94 0.69 - 1.07 [facility] mmol/L [facility] LABORATORY Specimen Anatomical Collection Method Collection Time Receive d Time (Source) Location / / Volume Laterality Blood specimen 09/13/2017 1:20 AM 017 1:25 (specimen) EST AM EST Resulting Agency Comment Spec In Lab Duke Olivier MD CHEMISTRY ORDERABLES Performing Organization Address City/State/ZIP [place] [address] (ABNORMAL) Basic Metabolic Panel (non-fasting) (09/13/2017 1:20 AM EST) athologist Signature Glucose Lvl 114 65 - 199 [facility] mg/dL [facility] Comment: Diabetes: >=200 mg/dL plus symp toms BUN 45 (H) 10 - 20 mg/dL [facility] Creatinine 1.57 (H) 0.80 - 1.50 mg/dL [facility] LABOR[facility]ORY Sodium 137 135 - 145 mmol/L [facility]ORY Potassium 3.7 3.5 - 5.0 mmol/L [facility] Comment: Please note: ??Patients with WBC >100,00 0 may have falsely elevated Potassium levels. ??For accurate Potassium quantif ication in these patients send serum separator tube (gold top) for subsequent determinations. ??Contact the Clinical Chemistry Laboratory if there are any qu estions. Chloride 98 98 - 107 mmol/L [facility] CO2 25 22 - 31 mmol/L [facility] Anion Gap 14 5 - 15 mmol/L [facility] Calcium 8.8 8.5 - 10.5 mg/dL [facility] Estimated GFR 44 (L) >=60 [facility] Comment: The reported eGFR should be multiplied b y 1.2 for patients. The MDRD is not an appropriate measure o f renal function for patients with body mass extremes or in patients with acute kidney failure. http://VasSol.Med.ly/DHnkdep http://valuklik/DHMCnkf Specimen Anatomical Collection Method Collection Time Receive d Time (Source) Location / / Volume Laterality Blood specimen 09/13/2017 1:20 AM 017 1:25 (specimen) EST AM EST Resulting Agency Comment Spec In Lab Duke Olivier MD CHEMISTRY ORDERABLES Performing Organization Address City/[facility]/[place] [address] SCAN DOC: CARDIAC CATH (09/13/2017 12:00 AM EST) Narrative 09/13/2017 12:00 AM EST This result has an attachment that is no t available. Ordered by an unspecified provider. Scanning Provider MEDIA MGR SCAN EXT ORDR/RSLT POCT Glucose (09/12/2017 11:16 PM EST) athologist Signature POC Glucose 120 65 - 199 [facility] mg/dL [facility] Comment: Supplemental ranges: <140 mg/dL before meals <180 mg/dL all other times of the day Specimen Anatomical Collection Method Collection Time Receive d Time (Source) Location / / Volume Laterality Blood specimen 09/12/2017 11:16 7 (specimen) PM EST 11:16 PM EST Karyn Soliz MD POINT OF CARE TEST ORDERABLE S Performing Organization Address City/[facility]/[place] [address] POCT Glucose (09/12/2017 7:41 PM EST) P athologist Signature POC Glucose 152 65 - 199 [facility] mg/dL [facility] Comment: Supplemental ranges: <140 mg/dL before meals <180 mg/dL all other times of the day Specimen Anatomical Collection Method Collection Time Receive d Time (Source) Location / / Volume Laterality Blood specimen 09/12/2017 7:41 PM 017 7:41 (specimen) EST PM EST Karyn Soliz MD POINT OF CARE TEST ORDERABLE S Performing Organization Address City/State/[place] [address] (ABNORMAL) APTT (09/12/2017 5:47 PM EST) athologist Signature PTT 37 (H) 25 - [address] [facility] Comment: The recommended therapeutic range for fu ll dose, unfractionated heparin at [facility] is 80 ? 114 seconds. The use [...] Organization Address City/State/ZIP Code Phon e Number [address] POCT Glucose (09/12/2017 3:33 PM EST) athologist Signature POC Glucose 151 65 - 199 [facility] mg/dL [facility] LABOR[facility]ORY Comment: Supplemental ranges: <140 mg/dL before meals <180 mg/dL all other times of the day Specimen Anatomical Collection Method Collection Time Receive d Time (Source) Location / / Volume Laterality Blood specimen 09/12/2017 3:33 PM 017 3:33 (specimen) EST PM EST Karyn Soliz MD POINT OF CARE TEST ORDERABLE S Performing Organization Address City/State/[place] [address] (ABNORMAL) Cardiac Enzymes (LEB/CGP) (09/12/2017 1:34 PM EST) athologist Signature Troponin-T 0.02 (H) 0.00 - [facility] 0.00 ng/mL [facility] LABOR[facility]ORY Comment: The 99th percentile for Troponin T is le ss than 0.01 ng/mL, any detectable cTnT concentration using this assay should be considered elevated. According to the third universal definit ion of myocardial infarction the following criteria with a clinical prese ntation consistent with acute myocardial ischemia meets the diagnosis for a myocardial infarction (NC). Detection of a rise and/or fall of [...] additional sample may be indicated. Reference: Third [place] Definition of Myocardial Infarction. Journal of the [place] [employer] 2012;60:1581-98 CK, Total 193 0 - 200 unit/L [facility] Specimen Anatomical Collection Method Collection Time Receive d Time (Source) Location / / Volume Laterality Blood specimen 09/12/2017 1:34 PM 017 1:49 (specimen) EST PM EST Resulting Agency Comment Spec In Lab Duke Olivier MD CHEMISTRY ORDERABLES Performing Organization Address City/State/ZIP Code Phon e Number [address] POCT Glucose (09/12/2017 12:08 PM EST) P athologist Signature POC Glucose 150 65 - 199 [facility] mg/dL [facility] LABOR[facility]ORY Comment: Supplemental ranges: <140 mg/dL before meals <180 mg/dL all other times of the day Specimen Anatomical Collection Method Collection Time Receive d Time (Source) Location / / Volume Laterality Blood specimen 09/12/2017 12:08 7 (specimen) PM EST 12:08 PM EST Karyn Soliz MD POINT OF CARE TEST ORDERABLE S Performing Organization Address City/[facility]/ZIP Code Phon e Number [address] APTT (09/12/2017 11:01 AM EST) P athologist Signature PTT 35 25 - [address] [facility] Comment: The recommended therapeutic range for fu ll dose, unfractionated heparin [place] [facility] [place] is 80 ? 114 seconds. The use [...] Soliz MD HEMATOLOGY ORDERABLES Performing Organization Address City/[facility]/ZIP [facility] Phon e Number [address] POCT Glucose (09/12/2017 7:41 AM EST) athologist Signature POC Glucose 129 65 - 199 [facility] mg/dL [facility] [facility] Comment: Supplemental ranges: <140 mg/dL before meals <180 mg/dL all other times of the day Specimen Anatomical Collection Method Collection Time Receive d Time (Source) Location / / Volume Laterality Blood specimen 09/12/2017 7:41 AM 017 7:41 (specimen) EST AM EST Karyn Soliz MD POINT OF CARE TEST ORDERABLE S Performing Organization Address City/[facility]/ZIP [facility] Phon e Number [address] (ABNORMAL) Differential, Automated (09/12/2017 6:02 AM EST) Patholo gist Method Time Signature Neutrophils % 74.0 % [facility] Neutr Abs (ANC) 7.27 (H) 1.70 - [facility] 6.10 [facility] x10(3)/[facility] L LABORATORY Lymphocytes % 13.6 % [facility] Lymphocytes Abs 1.3 0.9 - 3.2 [facility] x10(3)/[facility] LABORATORY Monocytes % 9.9 % [facility] Monocyte Abs 1.0 (H) 0.3 - 0.9 [facility] x10(3)/[facility] LABORATORY Eosinophils % 1.8 % [facility] Eosinophils Abs 0.2 0.0 - 0.4 [facility] x10(3)/[facility] LABORATORY Basophils % 0.3 % [facility] Basophils Abs 0.0 0.0 - 0.1 [facility] x10(3)/[facility] LABORATORY Immature Gran % 0.40 % [facility] Comment: Immature granulocytes(IG's)percentage an d absolute count will include metamyelocytes, myelocytes, and promyelo cytes. Blood smears from CBCs yielding IG's will be scanned manually for concor dance. If this scan disagrees with the automated IG or if promyelocytes are not ed, a manual differential will be performed. Kayla Gran Abs 0.04 0.00 - 0.04 x10(3)/[facility] MAR Y [facility] LABORATORY Specimen Anatomical Collection Method Collection Time Receive d Time (Source) Location / / Volume Laterality Blood specimen 09/12/2017 6:02 AM 017 6:25 (specimen) EST AM EST Resulting Agency Comment Spec In Lab Duke Olivier MD HEMATOLOGY ORDERABLES Performing Organization Address City/State/ZIP [place] [address] (ABNORMAL) Hemogram (09/12/2017 6:02 AM EST) Analysis Performed At Patho logist Time Signature WBC 9.8 (H) 4.0 - 9.5 [facility] x10(3)/[facility] LABORATORY RBC 4.42 (L) 4.58 - [facility] 5.54 [facility] x10(6)/[facility] LABORATORY Hemoglobin 12.6 (L) 13.7 - [facility] 16.5 gm/dL [facility] LABORATORY Hematocrit 38.9 (L) 40.5 - [facility] 48.5 % [facility] LABORATORY MCV 88.0 82.9 - [facility] 93.1 fL [facility] LABORATORY MCH 28.5 27.5 - [facility] 32.1 pg [facility] LABORATORY MCHC 32.4 32.0 - [facility] 35.7 gm/dL [facility] LABORATORY Platelets 187 145 - 357 [facility] x10(3)/[facility] LABORATORY RDWSD 46.8 (H) 36.0 - [facility]ENN[facility] 45.0 [facility] LABORATORY RDWCV 14.6 (H) 11.4 - [facility] 13.8 % [facility] LABORATORY MPV 10.5 7.6 - 12.9 [facility] LABORATORY nRBC % Auto 0.0 % [facility] nRBC Abs Auto 0.000 0.000 - [facility] 0.000 [facility] x10(3)/[facility] LABORATORY Specimen Anatomical Collection Method Collection Time Receive d Time (Source) Location / / Volume Laterality Blood specimen 09/12/2017 6:02 AM 017 6:25 (specimen) EST AM EST Resulting Agency Comment Spec In Lab Duke Olivier MD HEMATOLOGY ORDERABLES Performing Organization Address City/State/[place] [address] (ABNORMAL) Cardiac Enzymes (LEB/CGP) (09/12/2017 6:02 AM EST) P athologist Signature Troponin-T 0.02 (H) 0.00 - [facility] 0.00 ng/mL [facility] LAB[facility]ATORY Comment: The 99th percentile for Troponin T is le ss than 0.01 ng/mL, any detectable cTnT concentration using this assay should be considered elevated. According to the third universal definit ion of myocardial infarction the following criteria with a clinical prese ntation consistent with acute myocardial ischemia meets the diagnosis for a myocardial infarction (NC). Detection of a rise and/or fall of [...] additional sample may be indicated. Reference: Third [place] Definition of Myocardial Infarction. Journal of the [place] [employer] 2012;60:1581-98 CK, Total 200 0 - 200 unit/L [facility] Specimen Anatomical Collection Method Collection Time Receive d Time (Source) Location / / Volume Laterality Blood specimen 09/12/2017 6:02 AM 017 6:25 (specimen) EST AM EST Resulting Agency Comment Spec In Lab Duke Olivier MD CHEMISTRY ORDERABLES Performing Organization Address City/[facility]/ZIP Code Phon e Number [address] Magnesium (09/12/2017 6:02 AM EST) P athologist Signature Magnesium 0.88 0.69 - 1.07 [facility] mmol/L [facility] LABORATORY Specimen Anatomical Collection Method Collection Time Receive d Time (Source) Location / / Volume Laterality Blood specimen 09/12/2017 6:02 AM 017 6:25 (specimen) EST AM EST Resulting Agency Comment Spec In Lab Duke Olivier MD CHEMISTRY ORDERABLES Performing Organization Address City/[facility] [place] [address] (ABNORMAL) Basic Metabolic Panel (non-fasting) (09/12/2017 6:02 AM EST) P athologist Signature Glucose Lvl 125 65 - 199 [facility] mg/dL [facility] Comment: Diabetes: >=200 mg/dL plus symp toms BUN 39 (H) 10 - 20 mg/dL [facility] Creatinine 1.49 0.80 - 1.50 mg/dL [facility] LABOR[facility]ORY Sodium 139 135 - 145 mmol/L [facility] LABOR[facility]ORY Potassium 3.8 3.5 - 5.0 mmol/L [facility] Comment: Please note: ??Patients with WBC >100,00 0 may have falsely elevated Potassium levels. ??For accurate Potassium quantif ication in these patients send serum separator tube (gold top) for subsequent determinations. ??Contact the Clinical Chemistry Laboratory if there are any qu estions. Chloride 97 (L) 98 - 107 mmol/L [facility] CO2 26 22 - 31 mmol/L [facility] Anion Gap 16 (H) 5 - 15 mmol/L [facility] Calcium 8.9 8.5 - 10.5 mg/dL [facility] LAB[facility]ORY Estimated GFR 47 (L) >=60 [facility] Comment: The reported eGFR should be multiplied b y 1.2 for patients. The MDRD is not an appropriate measure o f renal function for patients with body mass extremes or in patients with acute kidney failure. http://valuklik/DHnkdep http://valuklik/DHMCnkf Specimen Anatomical Collection Method Collection Time Receive d Time (Source) Location / / Volume Laterality Blood specimen 09/12/2017 6:02 AM 017 6:25 (specimen) EST AM EST Resulting Agency Comment Spec In Lab Duke Olivier MD CHEMISTRY ORDERABLES Performing Organization Address City/State/[place] [address] POCT Glucose (09/12/2017 3:53 AM EST) athologist Signature POC Glucose 107 65 - 199 [facility] mg/dL [facility] Comment: Supplemental ranges: <140 mg/dL before meals <180 mg/dL all other times of the day Specimen Anatomical Collection Method Collection Time Receive d Time (Source) Location / / Volume Laterality Blood specimen 09/12/2017 3:53 AM 017 3:53 (specimen) EST AM EST Karyn Soliz MD POINT OF CARE TEST ORDERABLE S Performing Organization Address City/[facility]/[place] [address] (ABNORMAL) Cardiac Enzymes (LEB/CGP) (09/12/2017 12:20 AM EST) athologist Signature Troponin-T 0.04 (H) 0.00 - [facility] 0.[facility] ng/mL [facility] Comment: The 99th percentile for Troponin T is le ss than 0.01 ng/mL, any detectable cTnT concentration using this assay should be considered elevated. According to the third universal definit ion of myocardial infarction the following criteria with a clinical prese ntation consistent with acute myocardial ischemia meets the diagnosis for a myocardial infarction (NC). Detection of a rise and/or fall of [...] additional sample may be indicated. Reference: Third [place] Definition of Myocardial Infarction. Journal of the [place] College [employer] Cardiology 2012;60:1581-98 CK, Total 224 (H) 0 - 200 unit/L [facility] Specimen Anatomical Collection Method Collection Time Receive d Time (Source) Location / / Volume Laterality Blood specimen 09/12/2017 12:20 7 (specimen) AM EST 12:43 AM EST Resulting Agency Comment Spec In Lab Duke Olivier MD CHEMISTRY ORDERABLES Performing Organization Address City/State/ZIP [place] [address] POCT Glucose (09/11/2017 11:43 PM EST) P athologist Signature POC Glucose 90 65 - 199 [facility] mg/dL [facility] LABORATORY Comment: Supplemental ranges: <140 mg/dL before meals <180 mg/dL all other times of the day Specimen Anatomical Collection Method Collection Time Receive d Time (Source) Location / / Volume Laterality Blood specimen 09/11/2017 11:43 7 (specimen) PM EST 11:43 PM EST Karyn Soliz MD POINT OF CARE TEST ORDERABLE S Performing Organization Address City/[facility]/ZIP Code [place] [address] EKG 12 Lead (09/11/2017 11:25 PM EST) Component Value Ref Range Test Analysis Performed Pathologis t Method Time At Signature Ventricular rate 70 BPM MUSE SYSTEM Atrial Rate 70 BPM MUSE SYSTEM P-R Interval 188 ms MUSE SYSTEM QRS Duration 100 ms MUSE SYSTEM Q-T Interval 424 ms MUSE SYSTEM QTC Calculated 457 ms MUSE SYSTEM (Bezet) Calculated P [place] 44 degrees MUSE SYSTEM Calculated R [place] 38 degrees MUSE SYSTEM Calculated T [place] 4 degrees MUSE SYSTEM INTERPRETATION Normal sinus [...] Olivier MD ECG ORDERABLES Performing Organization Address City/[facility]/ZIP Code Phon e Number MUSE SYSTEM POCT Glucose (09/11/2017 8:08 PM EST) P athologist Signature POC Glucose 175 65 - 199 [facility] mg/dL [facility] LAB[facility]ORY Comment: Supplemental ranges: <140 mg/dL before meals <180 mg/dL all other times of the day Specimen Anatomical Collection Method Collection Time Receive d Time (Source) Location / / Volume Laterality Blood specimen 09/11/2017 8:08 PM 017 8:08 (specimen) EST PM EST Karyn Soliz MD POINT OF CARE TEST ORDERABLE S Performing Organization Address City/[facility]/ZIP [place] [address] (ABNORMAL) Cardiac Enzymes (LEB/CGP) (09/11/2017 4:53 PM EST) P athologist Signature Troponin-T 0.03 (H) 0.00 - [facility] 0.00 ng/mL [facility] Comment: The 99th percentile for Troponin T is le ss than 0.01 ng/mL, any detectable cTnT concentration using this assay should be considered elevated. According to the third universal definit ion of myocardial infarction the following criteria with a clinical prese ntation consistent with acute myocardial ischemia meets the diagnosis for a myocardial infarction (NC). Detection of a rise and/or fall of [...] additional sample may be indicated. Reference: Third [place] Definition of Myocardial Infarction. Journal of the [place] College [employer] Cardiology 2012;60:1581-98 CK, Total 213 (H) 0 - 200 unit/L [facility] Specimen Anatomical Collection Method Collection Time Receive d Time (Source) Location / / Volume Laterality Blood specimen 09/11/2017 4:53 PM 017 4:59 (specimen) EST PM EST Resulting Agency Comment Spec In Lab Duke Olivier MD CHEMISTRY ORDERABLES Performing Organization Address City/[facility]/[place] [address] POCT Glucose (09/11/2017 4:30 PM EST) P athologist Signature POC Glucose 122 65 - 199 [facility] mg/dL [facility]ORY Comment: Supplemental ranges: <140 mg/dL before meals <180 mg/dL all other times of the day Specimen Anatomical Collection Method Collection Time Receive d Time (Source) Location / / Volume Laterality Blood specimen 09/11/2017 4:30 PM 017 4:30 (specimen) EST PM EST Karyn Soliz MD POINT OF CARE TEST ORDERABLE S Performing Organization Address City/[facility]/[place] [address] ECHOCARDIOGRAM COMPLETE W CONTRAST (09/11/2017 11:45 AM EST) P athologist Signature EF 35 [facility] Specimen (Source) Anatomical Location Collection Method / Collectio n Time Received Time / Laterality Volume 09/11/2017 Narrative [facility] - 09/11/2017 2:09 PM EST Procedure: ?Transthoracic Echocardiogram Patient: ?SERGE Reyez ? (Age): 1945(72y) Med Rec#: ? [id number] ?Sex: ?M ? [place] [facility] [place]t / Wt: ??168(cm)/126(kg) Pt. Loc: ?Adult Floor ? BSA: ?2.3 Study Date: ?? 09/11/2017 ?Pt. Type: Inpatient Tape: ? Referring: JACY BRUNO E Referring: Duke Olivier ([id number]) Reading: Rafael Givens ([id number]) Service Station Console Operator: Jacy Chan [facility] Diagnosis: *ICD-10-PCS Heart failure, [...] E-wave Vmax ?0.8 ?m/sec ? MV deceleration [id number] ?msec ? MV A-wave Vmax ?0.3 ?m/sec [...] ? Mid-Inferior ?Hypokinetic ? Mid-Inferoseptal ?Hypokinetic ? [place]-Septal ? Hypokinetic ? [place]-Anterior ? Hypokinetic ? [place]-Lateral ?Hypokinetic ? [place]-Inferior ? Hypokinetic ? [place]-Tip ?Hypokinetic ? This report has been electronically sign ed by: _ Rafael Givens MD ? 09/11/2017 13 :41:22 Images reviewed and interpretation verif ied [facility] Cardiac Ultrasound [facility] Procedure Note Rafael Givens MD - 09/11/2017Formatt ing of this note might be different from the original. Procedure: Transthoracic Echocardiogram Patient: SERGE Reyez (Age): [birth year](72y) Med Rec#: [id number] Sex: M [place] [facility] [place]t / Wt: 168(cm)/126(kg) Pt. Loc: Adult Floor BSA: 2.3 Study Date: 09/11/2017 Pt. Type: Inpatie nt Tape: Referring: JACY BRUNO E Referring: Duke Olivier ([id number]) Reading: Rafael Givens ([id number]) Service Station Console Operator: Jacy Chan [facility] Diagnosis: *ICD-10-PCS Heart failure, [...] MV E-wave Vmax 0.8 m/sec MV deceleration [id number] msec MV A-wave Vmax 0.3 m/sec MV E:A ratio 2.6 ratio LV E:e' septal ratio15.2 ratio LV E:e' lateral rati10.6 ratio Tricuspid Valve Value Units (Range) RAP 3 mmHg Wall Motion: Segment Name Rest Base-Anteroseptal Hypokinetic Base-Anterior Hypokinetic Base-Anterolateral Hypokinetic Base-Posterolateral Hypokinetic Base-Inferior Hypokinetic Base-Inferoseptal Hypokinetic Mid-Anteroseptal Hypokinetic Mid-Anterior Hypokinetic Mid-Anterolateral Hypokinetic Mid-Posterolateral Hypokinetic Mid-Inferior Hypokinetic Mid-Inferoseptal Hypokinetic [place]-Septal Hypokinetic [place]-Anterior Hypokinetic [place]-Lateral Hypokinetic [place]-Inferior Hypokinetic [place]-Tip Hypokinetic This report has been electronically sign ed by: _ Rafael Givens MD 09/11/2017 13:41:22 Images reviewed and interpretation ame plunkett [facility] Duke Olivier MD ECHO ORDERABLES Performing Organization Address City/State/ZIP Code Phon e Number [facility] POCT Glucose (09/11/2017 11:45 AM EST) athologist Signature POC Glucose 146 65 - 199 [facility] mg/dL [facility] LABORATORY Comment: Supplemental ranges: <140 mg/dL before meals <180 mg/dL all other times of the day Specimen Anatomical Collection Method Collection Time Receive d Time (Source) Location / / Volume Laterality Blood specimen 09/11/2017 11:45 7 (specimen) AM EST 11:45 AM EST Karyn Soliz MD POINT OF CARE TEST ORDERABLE S Performing Organization Address City/State/[place] [address] (ABNORMAL) Cardiac Enzymes (LEB/CGP) (09/11/2017 10:46 AM EST) athologist Signature Troponin-T 0.03 (H) 0.00 - [facility] 0.[facility] ng/mL [facility] Comment: The 99th percentile for Troponin T is le ss than 0.01 ng/mL, any detectable cTnT concentration using this assay should be considered elevated. According to the third universal definit ion of myocardial infarction the following criteria with a clinical prese ntation consistent with acute myocardial ischemia meets the diagnosis for a myocardial infarction (NC). Detection of a rise and/or fall of [...] additional sample may be indicated. Reference: Third [place] Definition of Myocardial Infarction. Journal of the [place] College [employer] Cardiology 2012;60:1581-98 CK, Total 202 (H) 0 - 200 unit/L [facility] Specimen Anatomical Collection Method Collection Time Receive d Time (Source) Location / / Volume Laterality Blood specimen 09/11/2017 10:46 7 (specimen) AM EST 10:53 AM EST Resulting Agency Comment Spec In Lab Duke Olivier MD CHEMISTRY ORDERABLES Performing Organization Address City/State/[place] [address] POCT Glucose (09/11/2017 7:32 AM EST) athologist Signature POC Glucose 124 65 - 199 [facility] mg/dL [facility]ORY Comment: Supplemental ranges: <140 mg/dL before meals <180 mg/dL all other times of the day Specimen Anatomical Collection Method Collection Time Receive d Time (Source) Location / / Volume Laterality Blood specimen 09/11/2017 7:32 AM 017 7:32 (specimen) EST AM EST Karyn Soliz MD POINT OF CARE TEST ORDERABLE S Performing Organization Address City/State/[place] [address] (ABNORMAL) Basic Metabolic Panel (non-fasting) (09/11/2017 5:05 AM EST) P athologist Signature Glucose Lvl 110 65 - 199 [facility] mg/dL [facility] Comment: Diabetes: >=200 mg/dL plus symp toms BUN 33 (H) 10 - 20 mg/dL [facility] Creatinine 1.52 (H) 0.80 - 1.50 mg/dL [facility] Sodium 140 135 - 145 mmol/L [facility] Potassium 4.1 3.5 - 5.0 mmol/L [facility] Comment: Please note: ??Patients with WBC >100,00 0 may have falsely elevated Potassium levels. ??For accurate Potassium quantif ication in these patients send serum separator tube (gold top) for subsequent determinations. ??Contact the Clinical Chemistry Laboratory if there are any qu estions. Chloride 99 98 - 107 mmol/L [facility] CO2 Not Perf 22 - 31 mmol/L [facility] Comment: Add-on request. Sample too old to perform test. Anion Gap Unable to Calculate 5 - 15 mmol/L [facility] Calcium 9.2 8.5 - 10.5 mg/dL [facility] Estimated GFR 46 (L) >=60 [facility] Comment: The reported eGFR should be multiplied b y 1.2 for patients. The MDRD is not an appropriate measure o f renal function for patients with body mass extremes or in patients with acute kidney failure. http://valuklik/DHnkdep http://valuklik/DHMCnkf Specimen Anatomical Collection Method Collection Time Receive d Time (Source) Location / / Volume Laterality Blood specimen Venous Draw / 09/11/2017 5:05 AM 2016 5:47 (specimen) Unknown EST AM EST Resulting Agency Comment Spec In Lab Duke Olivier MD CHEMISTRY ORDERABLES Performing Organization Address City/[facility]/ZIP Code Phon e Number [address] Lavender Tube HOLD (09/11/2017 5:05 AM EST) [facility] gist Method Time Signature Lavender Hold Sample in [facility] LABORATORY Specimen Anatomical Collection Method Collection Time Receive d Time (Source) Location / / Volume Laterality Blood specimen Venous Draw / 09/11/2017 5:05 AM 2016 5:43 (specimen) Unknown EST AM EST Duke Olivier MD HEMATOLOGY ORDERABLES Performing Organization Address City/[facility]/ZIP Code Phon e Number [address] (ABNORMAL) Cardiac Enzymes (LEB/CGP) (09/11/2017 5:05 AM EST) athologist Signature Troponin-T 0.03 (H) 0.00 - [facility] [place] 0.00 ng/mL [facility] Comment: The 99th percentile for Troponin T is le ss than 0.01 ng/mL, any detectable cTnT concentration using this assay should be considered elevated. According to the third universal definit ion of myocardial infarction the following criteria with a clinical prese ntation consistent with acute myocardial ischemia meets the diagnosis for a myocardial infarction (NC). Detection of a rise and/or fall of [...] additional sample may be indicated. Reference: Third [place] Definition of Myocardial Infarction. Journal of the [place] [employer]iology 2012;60:1581-98 CK, Total 182 0 - 200 unit/L [facility] Specimen Anatomical Collection Method Collection Time Receive d Time (Source) Location / / Volume Laterality Blood specimen 09/11/2017 5:05 AM 017 5:43 (specimen) EST AM EST Resulting Agency Comment Spec In Lab Duke Olivier MD CHEMISTRY ORDERABLES Performing Organization Address City/State/ZIP Code Phon e Number [address] POCT Glucose (09/11/2017 5:04 AM EST) athologist Signature POC Glucose 107 65 - 199 [facility] mg/dL [facility] Comment: Supplemental ranges: <140 mg/dL before meals <180 mg/dL all other times of the day Specimen Anatomical Collection Method Collection Time Receive d Time (Source) Location / / Volume Laterality Blood specimen 09/11/2017 5:04 AM 017 5:04 (specimen) EST AM EST Duke Olivier MD POINT OF CARE TEST ORDERABLE S Performing Organization Address City/State/ZIP Code Phon e Number [address] POCT Glucose (09/11/2017 12:49 AM EST) P athologist Signature POC Glucose 96 65 - 199 [facility] mg/dL [facility] Comment: Supplemental ranges: <140 mg/dL before meals <180 mg/dL all other times of the day Specimen Anatomical Collection Method Collection Time Receive d Time (Source) Location / / Volume Laterality Blood specimen 09/11/2017 12:49 7 (specimen) AM EST 12:49 AM EST Duke Olivier MD POINT OF CARE TEST ORDERABLE S Performing Organization Address [facility] [place] [address] EKG 12 Lead (09/11/2017 12:27 AM EST) Component Value Ref Range Test Analysis Performed Pathologis t Method Time At Signature Ventricular rate 76 BPM MUSE SYSTEM Atrial Rate 76 BPM MUSE SYSTEM P-R Interval 182 ms MUSE SYSTEM QRS Duration 100 ms MUSE SYSTEM Q-T Interval 432 ms MUSE SYSTEM QTC Calculated 486 ms MUSE SYSTEM (Bezet) Calculated P [place] 36 degrees MUSE SYSTEM Calculated R [place] 30 degrees MUSE SYSTEM Calculated T [place] 35 degrees MUSE SYSTEM INTERPRETATION Normal sinus [...] Olivier MD ECG ORDERABLES Performing Organization Address City/[facility]/ZIP Code Phon e Number MUSE SYSTEM [...] (ABNORMAL) Differential, Automated (09/10/2017 9:10 PM EST) [facility] Method Time Signature Neutrophils % 80.3 % [facility] Neutr Abs (ANC) 10.50 (H) 1.70 - [facility] 6.10 [facility] x10(3)/[facility] L LABORATORY Lymphocytes % 10.0 % [facility] LABORATORY Lymphocytes Abs 1.3 0.9 - 3.2 [facility] x10(3)/[facility] LABORATORY Monocytes % 7.7 % [facility] LABORATORY Monocyte Abs 1.0 (H) 0.3 - 0.9 [facility] x10(3)/[facility] LABORATORY Eosinophils % 1.1 % [facility] LABORATORY Eosinophils Abs 0.1 0.0 - 0.4 [facility] x10(3)/[facility] LABORATORY Basophils % 0.4 % [facility] LABORATORY Basophils Abs 0.0 0.0 - 0.1 [facility] x10(3)/[facility] LABORATORY Immature Gran % 0.50 % [facility] LABORATORY Comment: Immature granulocytes(IG's)percentage an d absolute count will include metamyelocytes, myelocytes, and promyelo cytes. Blood smears from CBCs yielding IG's will be scanned manually for concor dance. If this scan disagrees with the automated IG or if promyelocytes are not ed, a manual differential will be performed. Kayla Gran Abs 0.07 (H) 0.00 - 0.04 x10(3)/[facility] LABORATORY Specimen Anatomical Collection Method Collection Time Receive d Time (Source) Location / / Volume Laterality Blood specimen 09/10/2017 9:10 PM 017 9:19 (specimen) EST PM EST Resulting Agency Comment Spec In Lab Duke Olivier MD HEMATOLOGY ORDERABLES Performing Organization Address City/State/ZIP [place] [address] (ABNORMAL) Hemogram (09/10/2017 9:10 PM EST) Analysis Performed At Patho logist Time Signature WBC 13.1 (H) 4.0 - 9.5 [facility] x10(3)/[facility] LABORATORY RBC 4.38 (L) 4.58 - [facility] 5.54 [facility] x10(6)/[facility] LABORATORY Hemoglobin 12.2 (L) 13.7 - [facility] 16.5 gm/dL [facility] LABORATORY Hematocrit 38.5 (L) 40.5 - [facility] 48.5 % [facility] LABORATORY MCV 87.9 82.9 - [facility] 93.1 fL [facility] LABORATORY MCH 27.9 27.5 - [facility] 32.1 pg [facility] LABORATORY MCHC 31.7 (L) 32.0 - [facility] JENNINGS 35.7 gm/dL [facility] LABORATORY Platelets 184 145 - 357 [facility] CHAVEZLEON x10(3)/[facility] LABORATORY RDWSD 47.5 (H) 36.0 - [facility]ENN[facility] 45.0 [facility] LABORATORY RDWCV 14.6 (H) 11.4 - [facility] 13.8 % [facility] LABORATORY MPV 10.4 7.6 - 12.9 [facility] JENN[facility] LABORATORY nRBC % Auto 0.0 % [facility] LABORATORY nRBC Abs Auto 0.000 0.000 - [facility]ENN[facility] 0.000 [facility] x10(3)/[facility] LABORATORY Specimen Anatomical Collection Method Collection Time Receive d Time (Source) Location / / Volume Laterality Blood specimen 09/10/2017 9:10 PM 017 9:19 (specimen) EST PM EST Resulting Agency Comment Spec In Lab Duke Olivier MD HEMATOLOGY ORDERABLES Performing Organization Address City/State/ZIP [place] [address] (ABNORMAL) Cardiac Enzymes (LEB/CGP) (09/10/2017 9:10 PM EST) P athologist Signature Troponin-T 0.04 (H) 0.00 - [facility]ENN[facility] 0.00 ng/mL [facility] LABORATORY Comment: The 99th percentile for Troponin T is le ss than 0.01 ng/mL, any detectable cTnT concentration using this assay should be considered elevated. According to the third universal definit ion of myocardial infarction the following criteria with a clinical prese ntation consistent with acute myocardial ischemia meets the diagnosis for a myocardial infarction (NC). Detection of a rise and/or fall of [...] additional sample may be indicated. Reference: Third [place] Definition of Myocardial Infarction. Journal of the [place] [employer] 2012;60:1581-98 CK, Total 195 0 - 200 unit/L [facility] LABORATORY Specimen Anatomical Collection Method Collection Time Receive d Time (Source) Location / / Volume Laterality Blood specimen 09/10/2017 9:10 PM 017 (specimen) EST 11:24 PM EST Resulting Agency Comment Spec In Lab Duke Olivier MD CHEMISTRY ORDERABLES Performing Organization Address City/State/ZIP Code Phon e Number [address] LDL Cholesterol, Direct (09/10/2017 9:10 PM EST) P athologist Signature LDL Chol 99 <=190 [facility] Direct mg/dL [facility] LABORATORY Specimen Anatomical Collection Method Collection Time Receive d Time (Source) Location / / Volume Laterality Blood specimen 09/10/2017 9:10 PM 017 (specimen) EST 11:24 PM EST Resulting Agency Comment Spec In Lab Duke Olivier MD CHEMISTRY ORDERABLES Performing Organization Address City/[facility]/ZIP Code Phon e Number [address] HDL/Cholesterol Profile (09/10/2017 9:10 PM EST) Patholo gist Method Time Signature Chol, Total 155 <=239 [facility] mg/dL [facility] LABORATORY HDL 43 >=40 [facility] mg/dL [facility] LABORATORY Chol/HDL Ratio 3.[address] [facility] LABORATORY Chol/HDL See Note [facility] Interpretation [facility] LABORATORY Comment: Lipid management should be guided by a p atient? s ASCVD risk, goals and preferences. ACC/AHA Guidelines recommend high intens ity statin if clinical ASCVD or LDL greater than or equal to 190 mg/dL. http://YES.TAPurCasinity.com/HLF-QFN-Sicdselhs Measure LDL if Total Cholesterol minus H DL Cholesterol is greater than 220 mg/dL. Adults aged 40-75 with LDL 70-189 mg/dL should have their 10 year ASCVD risk estimated with the ACC/AHA ASCVD risk es timator http://tools.acc.org/YHTYU-Lzyx-Xvpxfrjy r/ Statin should be discussed if risk [...] Organization Address City/State/[place] [address] (ABNORMAL) Hemoglobin A1c (09/10/2017 9:10 PM EST) Analysis Performed At Patho logist Time Signature Hemoglobin A1C 7.2 (H) 4.3 - 5.6 [facility] LABORATORY Comment: Reference Range: 4.3 - [...] [id number] Est Avg Gluc See note mg/dL [facility] LABORATORY Comment: Estimated Average Glucose [...] with hemoglobinopathies. Additional resources are available on [facility] website. [place] WILKS, Orlando J, Jean R, et al. ??Tr anslating the A1C assay into estimated average glucose values. ??Diabetes Care 2008:31(8):1397-6327. Specimen Anatomical Collection Method Collection Time Receive d Time (Source) Location / / Volume Laterality Blood specimen 09/10/2017 9:10 PM 017 (specimen) EST 11:25 PM EST Resulting Agency Comment Spec In Lab Duke Olivier MD CHEMISTRY ORDERABLES Performing Organization Address City/[facility]/ZIP Code Phon e Number [address] TSH (09/10/2017 9:10 PM EST) P athologist Signature TSH 3.16 0.27 - 4.20 [facility] mlU/ML [facility] LABORATORY Specimen Anatomical Collection Method Collection Time Receive d Time (Source) Location / / Volume Laterality Blood specimen 09/10/2017 9:10 PM 017 (specimen) EST 11:24 PM EST Resulting Agency Comment Spec In Lab Duke Olivier MD CHEMISTRY ORDERABLES Performing Organization Address City/[facility]/ZIP Code Phon e Number [address] Magnesium (09/10/2017 9:10 PM EST) P athologist Signature Magnesium 0.88 0.69 - 1.07 [facility]ENNINGS mmol/L [facility] LABORATORY Specimen Anatomical Collection Method Collection Time Receive d Time (Source) Location / / Volume Laterality Blood specimen 09/10/2017 9:10 PM 017 (specimen) EST 11:24 PM EST Resulting Agency Comment Spec In Lab Duke Olivier MD CHEMISTRY ORDERABLES Performing Organization Address City/State/ZIP [place] [address] (ABNORMAL) Comprehensive metabolic panel (non-fasting) (09/10/2017 9:10 PM EST) athologist Signature Glucose Lvl 118 65 - 199 [facility] mg/dL [facility] LABORATORY Comment: Diabetes: >=200 mg/dL plus symp toms BUN 35 (H) 10 - 20 mg/dL [facility] LABORATORY Creatinine 1.53 (H) 0.80 - 1.50 mg/dL [facility] LABORATORY Sodium 140 135 - 145 mmol/L [facility] LABORATORY Potassium 4.6 3.5 - 5.0 mmol/L [facility] LABORATORY Comment: Please note: ??Patients with WBC >100,00 0 may have falsely elevated Potassium levels. ??For accurate Potassium quantif ication in these patients send serum separator tube (gold top) for subsequent determinations. ??Contact the Clinical Chemistry Laboratory if there are any qu estions. Chloride 101 98 - 107 mmol/L [facility] LABORATORY CO2 27 22 - 31 mmol/L [facility] LABOR[facility]ORY Anion Gap 12 5 - 15 mmol/L [facility] LABORATORY Calcium 9.4 8.5 - 10.5 mg/dL [facility] LABORATORY Total Protein 7.0 6.1 - 8.0 gm/dL [facility] LABORATORY Albumin 4.1 3.2 - 5.2 gm/dL [facility] LABOR[facility]ORY AST 21 0 - 39 unit/L [facility] LABORATORY ALT 26 0 - 55 unit/L [facility] LABORATORY Alk Phos 84 40 - 120 unit/L [facility] LABOR[facility]ORY Total Bilirubin 0.5 0.2 - 1.3 mg/dL [facility] LABORATORY Estimated GFR 45 (L) >=60 [facility] LABORATORY Comment: The reported eGFR should be multiplied b y 1.2 for patients. The MDRD is not an appropriate measure o f renal function for patients with body mass extremes or in patients with acute kidney failure. http://valuklik/DHnkdep http://valuklik/DHMCnkf Specimen Anatomical Collection Method Collection Time Receive d Time (Source) Location / / Volume Laterality Blood specimen 09/10/2017 9:10 PM 017 9:19 (specimen) EST PM EST Resulting Agency Comment Spec In Lab Duke Olivier MD CHEMISTRY ORDERABLES Performing Organization Address City/State/ZIP Code Phon e Number [address] (ABNORMAL) pro-Brain Natriuretic Peptide (09/10/2017 9:10 PM EST) P athologist Signature ProBNP 2,704 (H) <=125 [facility] pg/mL [facility] LABORATORY Specimen Anatomical Collection Method Collection Time Receive d Time (Source) Location / / Volume Laterality Blood specimen 09/10/2017 9:10 PM 017 (specimen) EST 11:24 PM EST Resulting Agency Comment Spec In Lab Duke Olivier MD CHEMISTRY ORDERABLES Performing Organization Address City/State/[place] [address] documented in this encounter [...] 08 (Given - Provider: Zachery Gaspar RN)154 ([facility] Hold - Provider: Admin Adt - Reason: Transfer to a Procedural area)1900 ([facility] Unhold - Provider: Admin Adt)2032 (Given - [...] - Reason: Transfer to a Procedural area)1900 ([facility] Unhold - Provider: Admin Adt) 08 (Given [...] 0900 (Given - Provider: Zachery Gaspar, LILIANE)1546 ([facility] Hold - Provider: Admin Adt - Reason: Transfer to a Procedural area)1900 ([facility] Unhold - Provider: Admin Adt)2157 (Given - [...] 0930 (Given - Provider: Zachery Gaspar RN)154 ([facility] Hold - Provider: Admin Adt - Reason: Transfer to a Procedural area)1900 ([facility] Unhold - Provider: Admin Adt)2157 (Given - Provider: Melody Salamanca RN) 0830 (Given - Provider: Alexandra Shearer RN) 5 mL, Intravenous, EVERY 12 HOURS, First dose on Magaly 09/10/17 at 2130, Until Discontinued, Routine spironolactone (ALDACTONE) tablet 25 mg 0826 (Given - Provider: Loreto Bunch RN) 0808 (Given - Provider: Zachery Gaspar RN)154 ([facility] Hold - Provider: Admin Adt - Reason: Transfer to a Procedural area)1900 ([facility] Unhold - Provider: Admin Adt) 0824 (Given - Provider: Mary Ruffin) 25 mg, Oral, DAILY, First dose on Thu at 1115, Until Discontinued, Routine terazosin (HYTRIN) capsule 4 mg 2013 (Given - Provider : Cherry Nguyễn, LILIANE) 154 ([facility] Hold - Provider: Admin Adt - R cal: Transfer to a Procedural area)1900 ([facility] Unhold - Provider: Admin Adt)2032 (Given - [...] (Given - Provider: Loreto Bunch RN) 1546 ([facility] Hold - Provider: Admin Adt - Reason: [...] base)/3 mL nebulizer solution 3 mL 154 ([facility] Hold - Provider: A dmin Adt - Reason: Transfer to a Procedural area)1900 ([facility] Unhold - Provider: Admin Adt) 3 mL, Nebulization, 4 TIMES DAILY PRN, S tarting Magaly 09/10/17 at 2200, Until Thu09/15/17 at 1611, Wheezing, shortness of breath, Routine lidocaine (XYLOCAINE) 10 mg/mL (1 %) injection 3 mg 154 ([facility] Hold - Provider: Admin Adt - Reason: Transfer to a Procedural area)1900 ([facility] Unhold - Provider: Admin Adt) 3 mg [...] - Reason: Transfer to a Procedural area)1900 ([facility] Unhold - Provider: Admin Adt) 0.4 mg, [...] chloride 0.9 % flush 5-20 mL 154 ([facility] Hold - Provider: Admin Adt - Reason: Transfer to a Procedural area)190 ([facility] Unhold - Provider: Admin Adt) 5-20 mL, Intravenous, EVERY 1 MIN PRN, S tarting Thu09/10/17 at 2102, Until Thu09/15/17 at 1611, flush, Flush pertains to all indwelling lines. Flush per protocol found in the job aid using the link provided on this medication record., Routine sodium chloride 0.9 % flush 5-20 mL 154 ([facility] Hold - Provider: Admin Adt - Reason: Transfer to a Procedural area)190 ([facility] Unhold - Provider: Admin Adt) 5-20 mL, Intravenous, EVERY 1 MIN PRN, S tarting Thu09/10/17 at 2102, Until Thu09/15/17 at 1611, flush, Flush pertains to all indwelling lines. Flush per protocol found in the job aid using the link provided on this medication record., Routine traZODone (DESYREL) tablet 100 mg 2158 (Given - Provid er: Cherry Nguyễn RN) 154 ([facility] Hold - Provider: Admin Adt - R cal: Transfer to a Procedural area)190 ([facility] Unhold - Provider: Admin Adt)2240 (Given - [...] documented in this encounter Care Teams Supervisor Pipe Finishing Relationship Specialty Start Date End Date Edil Schmidt, SHREDDER PICKER PCP - General 05/06/12 EMERGENCY DEPT [address] [place] [address] [place] [address] documented as of this encounter
--- OUTSIDE RECORDS SUMMARY | 2022-06-15 00:48 | XMS_ITS | Encounter Summary ---
:1945 Author Organization [facility] [place] [address] Care Team Providers Name Role Phone Nancy Moore MD Primary Care Provider [phone] Encounter Details Date Type Department Care Team Description 05/03/2012 - Hospital Intermediate Cardiac Rinku Johnson MD [facility] [place] [address] Chest pain; 05/05/2012 Encounter Care Unit Delfino Ortega MD [facility] [place] [address] ASCVD (arteriosclerotic cardiovascular d isease); [facility] Diabetes mellitus with neuropathy; Hospital [place] [id number] Social History Tobacco Use Types Packs/Day Years [...] - 05/05/2012 2:17 PM EDT Napoleon Jiménez [id number] 1945 Diabetes Care Discharge Instructions Please start [...] appointments: During 8am-5pm Thursday through Thursday call [phone] to speak with a nurse in the cardiology clinic All other times call [phone] and ask to speak to the school cleaner vp organizational development. Return to work: No longer works Driving: No driving for 48 hours after catheterization Follow up Appointments: PCP Edil Schmidt APRN May 11, 2012 at 2:00 pm Market Manager At [facility] 80 at the [facility] May 13, 2012 at 1:00 pm Home oxygen therapy: N/A Arrangements for VNA/home care: none AttachmentsThe following attachments cannot be sent through Care Everywhere. HEART FAILURE: AFTER YOUR VISIT (ARMENIAN)documented in this encounter Medications at Time of [...] IV. Patient ambulated independently with family to [facility] for home. Charly Rojas, RN - 05/05/2012 1:21 PM EDT Spoke with Pt again this afternoon regarding what insurance benefit he wished to use during this hospitlization. Pt states he will use his Medicare A&B, and [employer] insurance. Eboni Howe [facility] notified via Phone call today. Charly VALDES, RN Clinical Lock And Dam Repairer Pager [phone] Danielle Worrell, PRODUCTION UTILITY WORKER - 05/05/2012 11:41 AM EDT Napoleon Jiménez 1945 [id number] NANCY MOORE MD Follow Up Diabetes Consult Patient Interview Mr. Jiménez stated that he is feeling better this morning, met with psychiatric orderly to discuss carb counting to Na restriction. He stated that Only I can make the changes that need to happen, in reference to his health, he is motivated to work with the [facility]OVE program at the [facility], and I recommended that he continue to see the clinical educator available at [facility]. Breakfast this morning had oatmeal, small [...] afternoon if discharged today. Danielle Worrell APRN [facility] Endocrinology Diabetes Management [phone] Pager [phone] This case was discussed with Dr. Goran Roper. 20 min time spent in patient care with 15 counseling, seeing patient, changing orders and discussionwith the patient and the primary team as well as nursing. Delfino Pagan MD - 05/05/2012 11:25 AM EDT Images from the original note were not included. Inpatient Cardiology Progress Note Patient Name: Napoleon Jiménez Service: BATTERBOARD SETTER / PA Responsible Attending: Dr. Pagan Reason [...] stent, additional stent placed. e. Heart catheterization, [facility] May 06[place] 2003: 20% distal LM, [...] report new since the prior 2003 study. Qfia-qy-drokxrjf hypokinesis of the inferior wall and apex [...] Needs teaching Will get prescriptions at the [facility], follow up at the [facility] Discussed with Dr. Latasha Ricks, PRODUCTION UTILITY WORKER 05/05/2012 Staff Discharge Day Notation: I interviewed [...] summary document. Delfino Pagan MD, MS Staff Market Manager Juliette Rico RN - 05/05/2012 3:54 AM EDT 2100 Metoprolol held for HR under 50. Dr Yang aware. Juliette Rico RN - 05/05/2012 2:25 AM EDT Per nursing order, patients FSBG at 0220 was 109. Entered into doc flow sheets also Brenda Harmon - 05/04/2012 8:02 PM EDT Hardboard Panel Printer Encounter Note Patient Name: Napoleon Jiménez : [id number] MR#: [id number] Admit Date: 05/03/2012 3:48 PM Hospital Day 1 day Narrative: I visited with Mr. Jiménez on disintegrator operator rounds. He reported feeling well because of his strong Roman Catholic macie. Assessment: Mr. Jiménez told me he became a Roman Catholic 15 years ago and that he is confident that God is with him and things will be well. Intervention and Outcome: Introduced self and disintegrator operator services, affirmed the power of Mr. [...] sedentary. Pt to start MOVE program with [facility]. Pert. Labs: HA1C 8.3, others noted. Pert. [...] evaluate for ischemia Rinku De Jesus MD, [facility] Inpatient Cardiology Progress Note Patient Name: Napoleon Jiménez Service: BATTERBOARD SETTER / PA Responsible Attending: Dr. De Jesus [...] stent, additional stent placed. e. Heart catheterization, [facility], May 06[place] 2003: 20% distal LM, [...] Needs teaching Will get prescriptions at the [facility], [facility] up at the [facility] Discussed with Dr. Liza Ricks, PRODUCTION UTILITY WORKER 05/04/2012 Charly Rojas RN - 05/04/2012 10:50 AM EDT Office of Care Management (OCM) / Clinical Lock And Dam Repairer (CRC)/ Initial Assessment Discussed patient with Provider [...] wished to have his care at the [facility] or [facility]. Pt states he would like to continue his care at [facility] and have Rx and follow up care at the [facility]. CURRENT HOME/COMMUNITY SERVICES/EQUIPMENT: DME:[facility] Agency:None Other: CONTROL TECHNICIAN REFERRAL: Notified Josue Mackenzie MSW - Support/Financial/Medication Assistance; See CONTROL TECHNICIAN notes for further needs. PRIMARY CARE PHYSICIAN: NANCY MOORE MD [id number] [facility] [id number] POTENTIAL DISCHARGE NEEDS: None ID at this [...] stent, additional stent placed. e. Heart catheterization, [facility], May 06[place] 2003: 20% distal LM, [...] his care from Dr. Melissa to the [facility]. The patient has been feeling poorly [...] 5 sprays so he sought care at [facility]. The patient states he has difficulty sleeping [...] crestor dosing without this side effect. 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 Smoking status: Former Smoker Quit date: 10/26/1991 ??? Smokeless tobacco: Not on file ??? Alcohol Use: No ??? Drug Use: Not on file ??? Sexually Active: Not on file Other Topics Concern ??? Not on file Social History Narrative Lives with in [place], [place]. Has VA services as he is 100% connected due to Agent Arun. Worked for the [employer] in the past. REVIEW OF SYSTEMS: Review [...] ??? nitroGLYcerin (NITROLINGUAL) 0.4 mg/dose spray 1 Bicknell(s), Translingual, PRN ??? cloNIDine (CATAPRES) 0.1 mg [...] Abs 0.03 0.00 - 0.05 (x10(3)/mcL) From [facility] 05/03/12 WBC 12.2 Hgb 14 Hct 42.8 [...] inform [facility] of his presence here at [facility]. Switch back tocrestor given bilateral lower extremity [...] tomorrow HTN Follow trends On Clonidine, beta mtaeus, ARB Diabetes mellitus with neuropathy On lantus and sliding scale insulin HA1c in AM On methadone and oxycodone for pain Heart failure Will need echo tomorrow Unknown last EF Discussed with Dr. De Jesus Provider: WU RICKS APRN Provider #: [id number] Rinku De Jesus MD - 05/03/2012 5:40 [...] known coronary disease having recently undergone stenting uv0125 and three-vessel bypass surgery at [facility] [place]. He has a nonischemic cardiomyopathy, [...] been nitroglycerin responsive. He was evaluated at [facility] earlier today where his 12-lead [...] (anticipate Regadenoson sestamibi) Rinku De Jesus MD, [facility] documented in this encounter Procedure Notes Provider, Scanning - 05/06/2012 10:05 AM EDTAssociated Order(s): SCAN DOC: LUG BREAKER AND WIRE PULLER; SCAN DOC: LUG BREAKER AND WIRE PULLER documented in this encounter Miscellaneous Notes Discharge [...] stent, additional stent placed. e. Heart catheterization, [facility] 2003: 20% distal LM, [...] report new since the prior 2003 study. Gbnv-az-kipcgqmx hypokinesis of the inferior wall and apex [...] from Dr. Melissa to the [facility]. The patient has been feeling poorly the [...] 5 sprays so he sought care at [facility]. The patient states he has difficulty sleeping [...] crestor dosing without this side effect. At [facility] he was given 100 mg of IV [...] Please follow response. Patient is new to [facility] services, will need short scripts provided on at the [facility]. Instructions Given to Patient at Discharge: Provider Instructions Anti-coagulation follow up: n/a Call your doctor if: Chest pain, shortness of breath, pain or swelling in legs occurs. If you have non-emergent questions between now and the time of your follow up appointments: During 8am-5pm Thursday through Thursday call [phone] to speak with a nurse in the cardiology clinic All other times call [phone] and ask to speak to the school cleaner vp organizational development. Return to work: No longer works Driving: No driving for 48 hours after catheterization Follow up Appointments: PCP Edil Schmidt APRN May 11, 2012 at 2:00 pm Market Manager At Desk 80 at the [facility] May 13, 2012 at 1:00 pm Home oxygen therapy: N/A Arrangements for VNA/home care: none General Instructions Napoleon Jiménez [id number] 1945 Diabetes Care Discharge Instructions Please start [...] Management Provider Contact Information: WU RICKS APRN [phone] Discharge References/Attachments: Discharge References/Attachments HEART FAILURE: AFTER YOUR VISIT (ARMENIAN) Signed: Wu Ricks APRN 05/05/2012 Consult Note - Danielle Worrell, PRODUCTION UTILITY WORKER - 05/04/2012 11:48 AM EDT Napoleon Jiménez 1945 [id number] Inpatient Endocrinology Glucose Management Consult Date of [...] and to provide a review of his machine long goods helper diabetes plan. Diabetes History: Napoleon Jiménez has had type 2 diabetes for the last 6-7 years. He has no family history of diabetes, however he did have exposure to agent orange, which epidemiological data from [employer] shown increased prevalence of T2DM, and elevated insulin levels, amongst those with high TCDD (2,3,7,8 cufosasvzhzzbglycl-r-qnfotn) levels. Mr. Jiménez has been on lantus and metformin since time of diagnosis, he receives his medications through the [facility], and will be changing PCP's to the [facility]. 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 Smoking status: Former Smoker Quit date: 10/26/1991 ??? Smokeless tobacco: Not on file ??? Alcohol Use: No ??? Drug Use: Not on file ??? Sexually Active: Not on file Other Topics Concern ??? Not on file Social History Narrative Lives with in [place], [place]. Has VA services as he is 100% connected due to Agent Arun. Worked for the [employer] in the past. ROS: Review of [...] change to Q 4hour testing over PM. [facility] management: ?? Discussed goal of HbA1C <7% [...] ?? Biannual dental exams Danielle Worrell APRN [facility] Endocrinology Diabetes Management [phone] Pager [phone] This case was discussed with Dr. Goran [...] Name Priority Date/Time Associated Diagnosis Comme nts LUG BREAKER AND WIRE PULLER SCAN 05/06/2012 10:05 Res ults for this [...] Routine 05/04/2012 5:38 Results f or this ([facility]) AM EDT procedure are i n the [...] ENZYMES STAT 05/03/2012 10:59 Results for this ([facility]) PM EDT procedure are i n the [...] STAT 05/03/2012 5:55 Results f or this ([facility]) PM EDT procedure are i n the [...] documented in this encounter Results SCAN DOC: LUG BREAKER AND WIRE PULLER (05/06/2012 10:05 AM EDT) Narrative 05/06/2012 1:37 PM EDT Procedure Note Provider, Scanning - 05/06/2012 10:05 AM EDT Scanning Provider MEDIA MGR SCAN EXT ORDR/RSLT (ABNORMAL) POCT GLUCOSE LAB USE ONLY (05/05/2012 2:13 PM EDT) athologist Signature POC Glucose 237 (H) 60 - 199 CERNER mg/dL [facility] Comment: Supplemental ranges: <110 mg/dL before meals <200 mg/dL all other times of the day Specimen Anatomical Collection Method Collection Time Receive d Time (Source) Location / / Volume Laterality Blood specimen 05/05/2012 2:13 PM 012 2:13 (specimen) EDT PM EDT Rinku De Jesus MD POINT OF CARE TEST ORDERABLE S Performing Organization Address City/State/[place] [address] CERNER MILLENNIUM POCT GLUCOSE [...] CARE TEST ORDERABLE S Performing Organization Address City/[facility]/[place] [address] CERNER MILLENNIUM EKG 12 [...] 474 ms MUSE SYSTEM (Bezet) Calculated P [place] -23 degrees MUSE SYSTEM Calculated R [place] 17 degrees MUSE SYSTEM Calculated T [place] -21 degrees MUSE SYSTEM INTERPRETATION Sinus bradycardia [...] Organization Address City/State/ZIP Code Phon e Number [place] [phone] CERNER MILLENNIUM (ABNORMAL) CBC [...] Platelets 176 145 - 370 CERNER x10(3)/mcL [facility] RDWSD 43.9 35.0 - CERNER 46.0 fL [...] Organization Address City/State/[place] [address] CERNER MILLENNIUM (ABNORMAL) BMP [...] of Diabetes Mellitus, Position Statement from the [place] Diabetes Association. ??Diabete s Care, Volume 33, Supplement 1, Oct 2009 BUN 16 10 - 20 mg/dL CERNER MILLENNIU M Creatinine 0.65 (L) 0.80 - 1.50 mg/dL CERNER [facility]ILL [facility]IUM Comment: Please note that the pediatric reference intervals supplied above were not validated at [facility]. Results from pediatri c patients should be [...] kidney disease. References: http://nkdep.nih.gov/resources/NKDEP_Sug gestn4Labs_0606_508.pdf http://www.kidney.org/professionals/kls/ pdf/faq_gfr.pdf Martaata K, Cira NA, Michele AK, Abdiel TS, [...] Jesus MD CHEMISTRY ORDERABLES Performing Organization Address City/[facility]/ZIP Code Phon e Number [address] CERNER MILLENNIUM POCT GLUCOSE LAB USE ONLY (05/05/2012 2:35 AM EDT) P athologist Signature POC Glucose 109 60 - 199 CERNER mg/dL [facility] Comment: Supplemental ranges: <110 mg/dL before meals <200 mg/dL all other times of the day Specimen Anatomical Collection Method Collection Time Receive d Time (Source) Location / / Volume Laterality Blood specimen 05/05/2012 2:35 AM 012 2:35 (specimen) EDT AM EDT Rinku De Jesus MD POINT OF CARE TEST ORDERABLE S Performing Organization Address City/[facility]/ZIP Code Phon e Number [address] CERNER MILLENNIUM POCT GLUCOSE [...] CARE TEST ORDERABLE S Performing Organization Address City/[facility]/ZIP Code Phon e Number [address] CERNER MILLENNIUM (ABNORMAL) POCT GLUCOSE LAB USE ONLY (05/04/2012 5:18 PM EDT) athologist Signature POC Glucose 218 (H) 60 - 199 CERNER mg/dL [facility] Comment: Supplemental ranges: <110 mg/dL before meals <200 mg/dL all other times of the day Specimen Anatomical Collection Method Collection Time Receive d Time (Source) Location / / Volume Laterality Blood specimen 05/04/2012 5:18 PM 012 5:18 (specimen) EDT PM EDT Rinku De Jesus MD POINT OF CARE TEST ORDERABLE S Performing Organization Address City/State/ZIP Code Phon e Number [address] CERNER MILLENNIUM POCT GLUCOSE LAB USE ONLY (05/04/2012 3:47 PM EDT) athologist Signature POC Glucose 114 60 - 199 CERNER mg/dL [facility] Comment: Supplemental ranges: <110 mg/dL before meals <200 mg/dL all other times of the day Specimen Anatomical Collection Method Collection Time Receive d Time (Source) Location / / Volume Laterality Blood specimen 05/04/2012 3:47 PM 012 3:47 (specimen) EDT PM EDT Rinku De Jesus MD POINT OF CARE TEST ORDERABLE S Performing Organization Address City/State/ZIP Code Phon e Number [address] [facility] [place] myocardial perfusion scan, pharmacologic [...] new since the prior 2002 study. ?? Peld-bq-rinvgbsk hypokinesis of the infe rior wall and [...] of corresponding CT-attenuated corrected images. ??There is jnplvzmc-kc-aodoae LV cavity dilatation. ??There is a predominantly f ixed perfusion defect involving the inferior and inferolateral dempsey, with p erhaps mild periborder zone reversibility involving the distal infer ior and inferolateral dempsey. ??No additional reversible or fixed perfusion defects are appreciated. ??The gated images show emig-me-epihhwqq hypokinesis of the inferior wall and apex [...] of corresponding CT-attenuated corrected images. There is bugkurhr-zs-azosiz LV cavity dilatation. There is a predominantly fix ed perfusion defect involving the inferior and inferolateral dempsey, with p erhaps mild periborder zone reversibility involving the distal infer ior and inferolateral dempsey. No additional reversible or fixed perfusion defects are appreciated. The gated images show anko-zw-eesonyey hypokinesis of the inferior wall and apex [...] ort new since the prior 2002 study. Emif-dz-sckqwgua hypokinesis of the infe rior wall and [...] Glucose 136 60 - 199 CERNER mg/dL [facility] Comment: Supplemental ranges: <110 mg/dL before meals <200 mg/dL all other times of the day Specimen Anatomical Collection Method Collection Time Receive d Time (Source) Location / / Volume Laterality Blood specimen 05/04/2012 11:54 2 (specimen) AM EDT 11:54 AM EDT Rinku De Jesus MD POINT OF CARE TEST ORDERABLE S Performing Organization Address City/State/[place] [address] CERNER [facility] Echo Transthoracic (Complete) (05/04/2012 9:36 AM EDT) P athologist Signature EF 50 HEARTLAB SYSTEM Specimen (Source) Anatomical Location Collection Method / Collectio n Time Received Time / Laterality Volume 05/04/2012 Narrative HEARTLAB SYSTEM - 05/04/2012 9:51 AM EDT Procedure: ? Transthoracic Echocardiogram Patient: ? SERGE BANKS M ?(Age): 1945(66) Med Rec#: ?[id number] ? Sex: ?M ? Site Loc: ?[facility] ? Ht / Wt: ??183(cm)/119(kg) Pt. Loc: ? Adult Floor ?BSA: ?2.46 Study Date: ?05/04/2012 ? Pt. Type: Inpatient Tape: ? Referring: Rinku De Jesus Referring: AUBREE Project Director: Zoie Johns Diagnosis:CPT Code(s): ??Echo Full (9330 7), ??Spectral Doppler (98700), Color Doppler (30270), ??Optison (21701A R), Indication(s): ??CAD, H/O Rhythm: HR ?BP [...] ? Mid-Inferior ?Normal ? Mid-Inferoseptal ?Normal ? Eminence-Septal ? Normal ? Eminence-Anterior ? Normal ? Eminence-Lateral ?Hypokinetic ? Eminence-Inferior ? Normal ? Eminence-Tip ?Normal ? Chambers ?Value ?Units (Range) ? [...] 09:50:33 Images reviewed and interpretation ame plunkett [facility] Cardiac Ultrasound Laboratory Procedure Note Harsh Lipscomb MD - 05/04/2012Format ting of this note might be different from the original. Procedure: Transthoracic Echocardiogram Patient: SERGE Reyez (Age): [birth year]) Med Rec#: [id number] Sex: M Site Loc: [facility] Ht / Wt: 183(cm)/119(kg) Pt. Loc: Adult Floor BSA: 2.46 Study Date: 05/04/2012 Pt. Type: Inpatie nt Tape: Referring: Rinku De Jesus Referring: AUBREE Project Director: Zoie Johns Diagnosis:CPT Code(s): Echo Full (55898) , Spectral Doppler (93821), Color Doppler (45810), Optison (77300JO) , Indication(s): CAD, H/O Rhythm: HR BP [...] Hypokinetic Mid-Posterolateral Hypokinetic Mid-Inferior Normal Mid-Inferoseptal Normal Eminence-Septal Normal Eminence-Anterior Normal Eminence-Lateral Hypokinetic Eminence-Inferior Normal Eminence-Tip Normal Chambers Value Units (Range) LV EF [...] 33 Images reviewed and interpretation ame plunkett [facility] Cardiac Ultrasound Laboratory Rinku De Jesus MD ECHO ORDERABLES Performing Organization Address City/State/ZIP Code Phon e Number HEARTLAB SYSTEM POCT GLUCOSE LAB USE ONLY (05/04/2012 7:48 AM EDT) P athologist Signature POC Glucose 157 60 - 199 CERNER mg/dL [email or web address] Comment: Supplemental ranges: <110 mg/dL before meals <200 mg/dL all other times of the day Specimen Anatomical Collection Method Collection Time Receive d Time (Source) Location / / Volume Laterality Blood specimen 05/04/2012 7:48 AM 012 7:48 (specimen) EDT AM EDT Rinku De Jesus MD POINT OF CARE TEST ORDERABLE S Performing Organization Address City/State/[place] [address] [facility] E[facility] 12 Lead (05/04/2012 7:09 AM EDT) Component Value Ref Range Test Analysis Performed Pathologis t Method Time At Signature Ventricular rate 49 BPM MUSE SYSTEM Atrial Rate 49 BPM MUSE SYSTEM P-R Interval 168 ms MUSE SYSTEM QRS Duration 92 ms MUSE SYSTEM Q-T Interval 470 ms MUSE SYSTEM QTC Calculated 424 ms MUSE SYSTEM (Bezet) Calculated P [place] -11 degrees MUSE SYSTEM Calculated R [place] 17 degrees MUSE SYSTEM Calculated T [place] -67 degrees MUSE SYSTEM INTERPRETATION Marked sinus [...] athologist Signature Troponin-T <0.03 <=0.03 CERNER ng/mL [facility] Comment: 0.03 ng/mL: Represents the 99th percenti [...] intervention Serial bloods should be obtained for kaylni ting on admission, at 6 to 9 hrs and again at 12 to 24 hrs if earlier samples are negative and the clinical index of suspicion is high. Reference: [Myocardial infarction redefined a consensus document of the Joint [place] an Society of Cardiology/[place] College of Cardiology Committee for the redefinition of myocardial infarction. Journal of the [place] College of Cardi ology 2000; 36: 959-969] CK, Total 74 0 - 200 unit/L CLINTONNER MILLENNI UM Specimen Anatomical Collection Method Collection Time Receive d Time (Source) Location / / Volume Laterality Blood specimen 05/04/2012 5:38 AM 012 6:00 (specimen) EDT AM EDT Resulting Agency Comment Spec In Lab Rinku De Jesus MD CHEMISTRY ORDERABLES Performing Organization Address City/State/[place] [address] ALANNA MILLENNIUM (ABNORMAL) DIFFERENTIAL, AUTOMATED (05/04/2012 5:38 AM EDT) [facility] gist Method Time Signature Neutrophils % [...] Organization Address City/State/ZIP Code Phon e Number [place] [phone] CERNER MILLENNIUM (ABNORMAL) CBC [...] Address City/State/ZIP Code Phon e Number [place] [phone] CERNER MILLENNIUM (ABNORMAL) BMP [...] of Diabetes Mellitus, Position Statement from the [place] [employer]. ??Diabete s Care, Volume 33, Supplement 1, Oct 2009 BUN 17 10 - 20 mg/dL CERNER MILLENNIU M Creatinine 0.80 0.80 - 1.50 mg/dL CERNER [facility]ILL [facility] Comment: Please note that the pediatric reference intervals supplied above were not validated at [facility]. Results from pediatri c patients should be [...] Jesus MD CHEMISTRY ORDERABLES Performing Organization Address City/[facility]/ZIP Code Phon e Number [address] CERNER MILLENNIUM (ABNORMAL) Hepatic [...] Jesus MD CHEMISTRY ORDERABLES Performing Organization Address [facility] Phon e Number [address] CERNER MILLENNIUM (ABNORMAL) Glucose, [...] of Diabetes Mellitus, Position Statement from the [place] [employer]. ??Diabete s Care, Volume 33, Supplement 1, Oct 2009 Specimen Anatomical Collection Method Collection Time Receive d Time (Source) Location / / Volume Laterality Blood specimen 05/04/2012 5:38 AM 012 5:48 (specimen) EDT AM EDT Resulting Agency Comment Spec In Lab Rinku De Jesus MD CHEMISTRY ORDERABLES Performing Organization Address [facility] e Number [address] CERNER MILLENNIUM Triglyceride (05/04/2012 5:38 AM EDT) athologist Signature Triglycerides 98 <=149 CERNER mg/dL MILLENNIUM Comment: Reference Range: Normal triglycerides: ??<150 mg/dL Borderline high: ??150-199 mg/dL High: ??200-499 mg/dL Very high: ??>ha=543 mg/dL MARILUZ 2001; 285(19):1887-6619 Specimen Anatomical Collection Method Collection Time Receive d Time (Source) Location / / Volume Laterality Blood specimen 05/04/2012 5:38 AM 012 5:48 (specimen) EDT AM EDT Resulting Agency Comment Spec In Lab Rinku De Jesus MD CHEMISTRY ORDERABLES Performing Organization Address [facility] Phon e Number [address] CERNER MILLENNIUM (ABNORMAL) HDL/Cholesterol Profile (05/04/2012 5:38 AM EDT) P athologist Signature Chol, Total 129 <=199 mg/dL CERNER MILLENNIUM Comment: Recommendations of the NCEP Adult Treatm ent Panel for the following risk cutoff thresholds for the [place] populatio n: Desirable: <200 mg/dL Borderline High: 200-239 mg/dL High: > or = 240 mg/dL HDL 37 (L) >=40 mg/dL CERNER MILLENNIUM Comment: Reference range: ??Low HDL: ?? < 40 mg/dL ??Normal: ?40-60 mg/dL ??Desirable: > 60 mg/dL MARILUZ 2001; 285(19):9161-9807 Chol/HDL Ratio 3.5 ratio ALANNA VAUGHAN Comment: A Cholesterol to HDL ratio below 4:1 is desirable. ??Studies suggest that increased CAD risk occurs at ratios abov e 5 for females and above 6 for men. ? [place] [employer] Association ??(htt p://www.americanheart.org) ? Vera Int Med, 1994; 121:641 ? AM J Med, 1998; 105(1A):48S Specimen Anatomical Collection Method Collection Time Receive d Time (Source) Location / / Volume Laterality Blood specimen 05/04/2012 5:38 AM 012 5:48 (specimen) EDT AM EDT Resulting Agency Comment Spec In Lab Rinku De Jesus MD CHEMISTRY ORDERABLES Performing Organization Address City/State/[place] [address] ALANNA GIBSON LDL Cholesterol, Direct (05/04/2012 5:38 AM EDT) athologist Signature LDL Chol 83 <=99 mg/dL [facility] Direct [facility] Comment: The National Cholesterol Education Progr am (NCEP) has set the following guidelines for LDL Cholesterol: Reference range: ?? Optimal: ?<100 mg/dL ?? Near Optimal/Above Optimal: ?? 100-1 29 mg/dL ?? Borderline high: ?130-159 mg/dL ?? High: ? 160-189 mg/dL ?? Very high: ?>fb=791 mg/dL MARILUZ 2001: 285(19):0955-3861 Specimen Anatomical Collection Method Collection Time Receive d Time (Source) Location / / Volume Laterality Blood specimen 05/04/2012 5:38 AM 012 5:48 (specimen) EDT AM EDT Resulting Agency Comment Spec In Lab Rinku De Jesus MD CHEMISTRY ORDERABLES Performing Organization Address City/State/ZIP [place] [address] ALANNA SOUZAIUM (ABNORMAL) Hemoglobin A1c (05/04/2012 5:38 AM EDT) Analysis Performed At Patho logist Time Signature Hemoglobin A1C 8.3 (H) 4.3 - 6.1 CERNER % MILLENNIUM Est Avg Gluc 192 mg/dL [facility]ER [facility] Comment: eAG equivalents for HbA1c percentages: [...] into estimated average glucose values. ??Diabetes Care 2008:31(8):0158-1549. Specimen Anatomical Collection Method Collection Time Receive d Time (Source) Location / / Volume Laterality Blood specimen 05/04/2012 5:38 AM 012 5:48 (specimen) EDT AM EDT Resulting Agency Comment Spec In Lab Rinku De Jesus MD CHEMISTRY ORDERABLES Performing Organization Address City/State/[place] [address] ALANNA GIBSON (ABNORMAL) Lipid panel (fasting) (05/04/2012 5:38 AM EDT) P athologist Signature Chol, Total 129 <=199 mg/dL CERNER MILLENNIUM Comment: Recommendations of the NCEP Adult Treatm ent Panel for the following risk cutoff thresholds for the [place] popul[place] n: Desirable: <200 mg/dL Borderline High: 200-239 mg/dL High: > or = 240 mg/dL Triglycerides 98 <=149 mg/dL CERMEGAN MILLENN IUM Comment: Reference Range: Normal triglycerides: ??<150 mg/dL Borderline high: ??150-199 mg/dL High: ??200-499 mg/dL Very high: ??>qp=551 mg/dL MARILUZ 2001; 285(19):1259-8510 HDL 37 (L) >=40 mg/dL CERMEGAN CASTELLANOSMARTHAIUM Comment: Reference range: ??Low HDL: ?? < 40 mg/dL ??Normal: ?40-60 mg/dL ??Desirable: > 60 mg/dL MARILUZ 2001; 285(19):3220-0094 LDL Cholesterol 72 <=99 mg/dL ALANNA MACKENZIE Comment: Reference range: ?? Optimal: ?<100 mg/dL ?? Near Optimal/Above Optimal: ?? 100-1 29 mg/dL ?? Borderline high: ?130-159 mg/dL ?? High: ? 160-189 mg/dL ?? Very high: ?>vs=509 mg/dL MARILUZ 2001: 285(19):8378-2179 Chol/HDL Ratio 3.5 ratio CERNER MILLENNI UM Comment: A Cholesterol to HDL ratio below 4:1 is desirable. ??Studies suggest that increased CAD risk occurs at ratios abov e 5 for females and above 6 for men. ? [place] [employer] Association ??(htt p://www.americanheart.org) ? Vera Int Med, 1994; 121:641 ? AM J Med, 1998; 105(1A):48S Specimen Anatomical Collection Method Collection Time Receive d Time (Source) Location / / Volume Laterality Blood specimen 05/04/2012 5:38 AM 012 5:48 (specimen) EDT AM EDT Resulting Agency Comment Spec In Lab Rinku De Jesus MD CHEMISTRY ORDERABLES Performing Organization Address City/[facility]/ZIP [facility] Phon e Number [address] CERNER MILLENNIUM TSH (05/04/2012 5:38 AM EDT) athologist Signature TSH 2.89 0.27 - 4.20 CERNER mcIU/mL [facility] Specimen Anatomical Collection Method Collection Time Receive d Time (Source) Location / / Volume Laterality Blood specimen 05/04/2012 5:38 AM 012 5:48 (specimen) EDT AM EDT Resulting Agency Comment Spec In Lab Rinku De Jesus MD CHEMISTRY ORDERABLES Performing Organization Address City/[facility] Phon e Number [address] CERNER [employer] NUCLEAR STRESS, CARDIOLOGY RESULTS (05/04/2012) Narrative This result has an attachment that is no t available. Rinku De Jesus MD CARD TESTS W/SCANNED RESULTS Cardiac Enzymes (05/03/2012 10:59 PM EDT) athologist Signature Troponin-T <0.03 <=0.03 CERNER ng/mL [facility] Comment: 0.03 ng/mL: Represents the 99th percenti [...] of the [employer] [place] [employer] Society of Cardiology/[place] [employer] Committee for the redefinition of myocardial infarction. Journal of the [place] College of Cardi ology 2000; 36: 959-969] CK, Total 88 0 - 200 unit/L [employer] UM Specimen Anatomical Collection Method Collection Time Receive d Time (Source) Location / / Volume Laterality Blood specimen 05/03/2012 10:59 2 (specimen) PM EDT 11:26 PM EDT Resulting Agency Comment Spec In Lab Rinku De Jesus MD CHEMISTRY ORDERABLES Performing Organization Address City/State/[place] [address] [employer] XR CHEST ROUTINE PA & LATERAL (05/03/2012 [...] 242 (H) 60 - 199 CERNER mg/dL [facility] Comment: Supplemental ranges: <110 mg/dL before meals <200 mg/dL all other times of the day Specimen Anatomical Collection Method Collection Time Receive d Time (Source) Location / / Volume Laterality Blood specimen 05/03/2012 7:50 PM 012 7:50 (specimen) EDT PM EDT Rinku De Jeuss MD POINT OF CARE TEST ORDERABLE S Performing Organization Address City/State/[place] [address] CERNER [facility] MAGNESIUM (05/03/2012 5:55 PM EDT) athologist Signature Magnesium 0.70 0.69 - 1.07 CERNER mmol/L [facility] Specimen Anatomical Collection Method Collection Time Receive d Time (Source) Location / / Volume Laterality Blood specimen 05/03/2012 5:55 PM 012 5:58 (specimen) EDT PM EDT Resulting Agency Comment Spec In Lab Rinku De Jesus MD CHEMISTRY ORDERABLES Performing Organization Address City/[facility]/ZIP Code Phon e Number [address] CERNER MILLENNIUM (ABNORMAL) PRO-BRAIN [...] Organization Address City/State/ZIP Code Phon e Number [address] CERNER MILLENNIUM (ABNORMAL) DIFFERENTIAL, [...] Jesus MD HEMATOLOGY ORDERABLES Performing Organization Address City/[facility] [place] [address] CERNER [employer]ENNIUM Cardiac Enzymes (05/03/2012 5:55 PM EDT) athologist Signature Troponin-T <0.03 <=0.03 CERNER ng/mL [facility] Comment: 0.03 ng/mL: Represents the 99th percenti [...] of the [employer] [place] an Society of Cardiology/[place] [employer] Committee for the redefinition of myocardial infarction. Journal of the [place] [employer] Cardi ology 2000; 36: 959-969] CK, Total 92 0 - 200 unit/L [facility] [employer] UM Specimen Anatomical Collection Method Collection Time Receive d Time (Source) Location / / Volume Laterality Blood specimen 05/03/2012 5:55 PM 012 5:58 (specimen) EDT PM EDT Resulting Agency Comment Spec In Lab Rinku De Jesus MD CHEMISTRY ORDERABLES Performing Organization Address City/[facility]/ZIP [place] [address] CERNER MILLENNIUM APTT (05/03/2012 [...] Jesus MD HEMATOLOGY ORDERABLES Performing Organization Address City/[facility]/ZIP Code Phon e Number [address] CERNER MILLENNIUM Prothrombin Time (05/03/2012 5:55 PM EDT) P athologist Signature PT 13.9 11.9 - 14.7 CERNER sec MILLENNIUM Comment: [facility] Transfusion Committee Guidelines: I NR less than [...] Jesus MD HEMATOLOGY ORDERABLES Performing Organization Address City/[facility]/ZIP Code [place] [address] CERNER MILLENNIUM (ABNORMAL) CBC [...] Organization Address City/State/[place] [address] CERNER MILLENNIUM (ABNORMAL) BMP [...] of Diabetes Mellitus, Position Statement from the [place] [employer]. ??Diabete s Care, Volume 33, Supplement 1, Oct 2009 BUN 11 10 - 20 mg/dL CERNER MILLENNIU M Creatinine 0.69 (L) 0.80 - 1.50 mg/dL CERNER MILL ENNIUM Comment: Please note that the pediatric reference intervals supplied above were not validated [place] [facility] [place] Results from pediatri c patients should be [...] Jesus MD CHEMISTRY ORDERABLES Performing Organization Address City/[facility]/ZIP Code Phon e Number [address] Edai POCT GLUCOSE LAB USE ONLY (05/03/2012 5:04 PM EDT) P athologist Signature POC Glucose 89 60 - 199 CERNER mg/dL [facility] Comment: Supplemental ranges: <110 mg/dL before meals <200 mg/dL all other times of the day Specimen Anatomical Collection Method Collection Time Receive d Time (Source) Location / / Volume Laterality Blood specimen 05/03/2012 5:04 PM 012 5:04 (specimen) EDT PM EDT Rinku De Jesus MD POINT OF CARE TEST ORDERABLE S Performing Organization Address City/[facility]/ZIP [facility] [place] [address] [facility] [employer] EKG 12 Lead (05/03/2012 4:50 PM EDT) Component Value Ref Range Test Analysis Performed Pathologis t Method Time At Signature Ventricular rate 53 BPM MUSE SYSTEM Atrial Rate 53 BPM MUSE SYSTEM P-R Interval 178 ms MUSE SYSTEM QRS Duration 106 ms MUSE SYSTEM Q-T Interval 512 ms MUSE SYSTEM QTC Calculated 480 ms MUSE SYSTEM (Bezet) Calculated P [place] 84 degrees MUSE SYSTEM Calculated R [place] 45 degrees MUSE SYSTEM Calculated T [place] 140 degrees MUSE SYSTEM INTERPRETATION Sinus bradycardia [...] RN) 0600 (Given - Provider: Juliette Rico RN)1349 (Given - Provider: Emperatriz Howe [...] Routine documented in this encounter Care Teams Pipe Crew Foreman Relationship Specialty Start Date End Date Nancy Moore MD PCP - General 09/17/10 05/05/[address] [place] [address] documented as of this encounter
--- OUTSIDE RECORDS SUMMARY | 2022-06-15 00:49 | XMS_ITS | Continuity of Care Document ---
:1945 Author Organization [facility] Care Team Providers Name Role Phone [facility] Unavailable Unavailable Problems Combined list of problems from Department of Defense and Veterans Affairs facilities. It does not include entries that were removed or entered in error. 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 [facility] [facility] loss (SNOMED CT 177708809) Ataxia Active Condition [place] [facility] [facility] ATRIAL FIBRILLATION Active Condition [place] [facility] CAD - Coronary artery Active Condition [place] disease (SNOMED CT J [place] [facility] 86327296) Cellulitis of right Active Condition [place] lower limb [facility] [facility] Central sleep apnea Active Condition [place] [facility] Cervicalgia (SNOMED CT Active Condition [place] [id number]) [place] [facility] Chronic pain Active Condition [place] [facility] Chronic post-traumatic Active Condition [place] stress disorder [place] [facility] CKD stage 3 Active Condition [place] JENNIFER [place] [facility] Colitis Active Condition [place] [facility] COPD Active Condition [place] [facility] Depressive disorder Active Condition [place] [facility] Diabetic peripheral Active Condition [place] neuropathy (SNOMED CT [place] [facility] 234138077) DM - Diabetes mellitus Active Condition [place] (SNOMED CT 35411941) [place] [facility] Dysphagia Active Condition [place] [facility] Dyspnea (SNOMED CT Active Condition [place] [id number]) [place] [facility] Edema Active Condition [place] [facility] Foot ulcer due to type Active Condition [place] 2 diabetes mellitus [place] [facility] Heart failure (SNOMED Active Condition [place] CT 22009287) [place] [facility] Heart Murmurs * Active Condition [place] (ICD-9-CM 785.2) [place] [facility] HTN - Hypertension Active Condition [place] (SNOMED CT 66000418) [place] [facility] Insomnia Active Condition [place] [facility] [facility] Major depressive Active Condition [place] disorder [place] [facility] MIGRAINE UNSPEC W/O Active Condition [place] INTRACT. 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 TODD T VAM[facility]OC heart failure Shortness of breath Active Condition [place] [facility] Subjective tinnitus Active Condition [place] (SNOMED CT 55958584) [place] [facility] Weakness - general Active Condition [place] [facility] [facility] Health Maintenance Inactive Condition 03/21/2014 [place] (ICD-9-CM V65.9) [place] [facility] Hyperlipidemia Inactive Condition 03/21/2014 [place] [facility] Morbid Obesity * Inactive Condition 03/21/2014 АНДРЕЙ [place] (ICD-9-CM 278.01) TODD T [facility] Diagnosis: ICD-10-CM active Diagnosis MARCOS SWARTZ I50.41 Acute combined [place] [facility] systolic and diastolic (congestive) hrt failwith Provider Comments: 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 ([facility] [id number]) Diagnosis: ICD-10-CM active Diagnosis [place] G47.30 Sleep apnea, [place] [facility] unspecifiedwith Provider Comments: Sleep Apnea, unspecified Diagnosis: ICD-10-CM active Diagnosis [place] L89.519 Pressure ulcer [place] [facility] of right ankle, unspecified stagewith Provider Comments: Pressure Ulcer of right Ankle, unspecified Stage Diagnosis: ICD-10-CM active Diagnosis [place] M62.81 Muscle weakness [place] [facility] (generalized)with Provider Comments: Weakness - general ([facility] [id number]) Diagnosis: ICD-10-CM active Diagnosis [place] Z71.0 Prsn encntr hlth [place] [facility] serv to consult on behalf of another personwith Provider Comments: Person Encountering Health Services to Consult on Behalf of another Person Diagnosis: ICD-10-CM active Diagnosis [place] E11.621 Type 2 [place] [facility] diabetes mellitus with foot ulcerwith Provider Comments: Foot ulcer due to type 2 diabetes mellitus ([facility] [id number]) Diagnosis: ICD-10-CM active Diagnosis [place] L97.519 Non-prs [facility] chronic ulcer oth prt right foot w unsp severitywith Provider Comments: Non-Pressure Chronic Ulcer of other part of right Foot with unspecified Severity Diagnosis: ICD-10-CM active Diagnosis ST. Z98.[address] [facility] specified CBOC postprocedural stateswith Provider Comments: Post-Procedural Call Diagnosis: ICD-10-CM active Diagnosis [place] Z47.81 Encounter for [facility] orthopedic aftercare following surgical ampwith Provider Comments: Encounter for orthopedic aftercare following surgical amp Diagnosis: ICD-10-CM active Diagnosis [place] Z51.81 Encounter for [facility] therapeutic drug level monitoringwith Provider Comments: Encounter for Therapeutic Drug Level Monitoring Diagnosis: ICD-10-CM active Diagnosis [place] Z47.81 Encounter for [facility] orthopedic aftercare following surgical ampwith Provider Comments: Encounter for Orthopedic Aftercare Following Surgical Amputation Diagnosis: ICD-10-CM active Diagnosis [place] J44.9 Chronic [facility] obstructive pulmonary disease, unspecifiedwith Provider Comments: COPD ([facility] [id number]) Diagnosis: ICD-10-CM active Diagnosis [place] Z65.9 Problem related [facility] to unspecified psychosocial circumstanceswith Provider Comments: Psychosocial Circumstance Problems,Unspec Diagnosis: ICD-10-CM active Diagnosis [place] Z89.421 Acquired T [facility] absence of other right toe(s)with Provider Comments: Acquired Absence of other right Toe(s) Diagnosis: ICD-10-CM active Diagnosis [place] L03.115 Cellulitis of [facility] right lower limbwith Provider Comments: Cellulitis of right lower limb ([facility] [id number]) Diagnosis: ICD-10-CM active Diagnosis [place] R06.02 Shortness of T VAOC breathwith Provider Comments: Shortness of breath ([facility] [id number]) Diagnosis: ICD-10-CM active Diagnosis [place] E11.69 Type 2 diabetes [place] [facility] mellitus with other specified complicationwith Provider Comments: Type 2 Diabetes Mellitus with other specified Complication Diagnosis: ICD-10-CM active Diagnosis [place] E11.69 Type 2 diabetes T [facility] mellitus with other specified complicationwith Provider Comments: Type 2 diabetes mellitus with other specified complication Diagnosis: ICD-10-CM active Diagnosis [place] L03.115 Cellulitis of T [facility] right lower limbwith Provider Comments: Cellulitis of right lower limb Diagnosis: ICD-10-CM active Diagnosis [place] G47.37 Central sleep T [facility] apnea in conditions classified elsewherewith Provider Comments: Obstructive sleep apnea syndrome ([facility] [id number]) Diagnosis: ICD-10-CM active Diagnosis [place] L76.32 Postproc [place] [facility] hematoma of skin, subcu following other procedurewith Provider Comments: Postprocedural hematoma of skin and subcutaneous tissue following other procedure Diagnosis: ICD-10-CM active Diagnosis [place] G47.31 Primary central T [facility] sleep apneawith Provider Comments: Central sleep apnea ([facility] [id number]) Diagnosis: ICD-10-CM active Diagnosis [place] S91.301D Unspecified [place] [facility] open wound, right foot, subsequent encounterwith Provider Comments: Unspecified open wound, right foot, subsequent encounter Admit Reason: active Diagnosis [place] OSTEOMYELITISDiagnosis T VAM[facility]OC : ICD-10-CM S91.301D Unspecified open wound, right foot, subsequent encounterwith Provider Comments: Unspecified open Wound, right Foot, Subsequent Encounter Admit Reason: active Diagnosis [place] OSTEOMYELITISDiagnosis T [facility] : ICD-10-CM E11.621 Type 2 diabetes mellitus with foot ulcerwith Provider Comments: Foot ulcer due to type 2 diabetes mellitus ([facility] [id number]) Diagnosis: ICD-10-CM active Diagnosis [place] Z01.818 Encounter for T [facility] other preprocedural examinationwith Provider Comments: Encounter for other Preprocedural Examination Diagnosis: ICD-10-CM active Diagnosis [place] Z71.89 Other specified [place] [facility] counselingwith Provider Comments: Other specified Counseling Diagnosis: ICD-10-CM active Diagnosis [place] R53.83 Other [place] [facility] fatiguewith Provider Comments: Other Fatigue Diagnosis: ICD-10-CM active Diagnosis [place] R05.9 Cough, [place] [facility] unspecifiedwith Provider Comments: Cough, unspecified Diagnosis: ICD-10-CM active Diagnosis [place] R60.0 Localized [place] [facility] edemawith Provider Comments: Localized Edema Diagnosis: ICD-10-CM active Diagnosis [place] I50.32 Chronic HCS diastolic (congestive) heart failurewith Provider Comments: Chronic diastolic (congestive) heart failure Diagnosis: ICD-10-CM active Diagnosis ST. I50.33 Acute on JACY SBURY chronic diastolic CB OC (congestive) heart failurewith Provider Comments: Acute on Chronic Diastolic (Congestive) Heart Failure Diagnosis: ICD-10-CM active Diagnosis [place] R06.00 Dyspnea, [place] [facility] unspecifiedwith Provider Comments: Dyspnea ([facility] [id number]) Diagnosis: ICD-10-CM active Diagnosis [facility] I50.32 Chronic HCS diastolic (congestive) heart failurewith Provider Comments: Chronic Diastolic (Congestive) Heart Failure Diagnosis: ICD-10-CM active Diagnosis [place] I50.9 Heart failure, [place] [facility] unspecifiedwith Provider Comments: Heart failure ([facility] [id number]) Diagnosis: ICD-10-CM active Diagnosis [place] E11.9 Type 2 diabetes [place] [facility] mellitus without complicationswith Provider Comments: Type 2 Diabetes Mellitus without Complications Diagnosis: ICD-10-CM active Diagnosis ST. I10 Essential [place] (primary) CBOC hypertensionwith Provider Comments: HTN - Hypertension ([facility] [id number]) Diagnosis: ICD-10-CM active Diagnosis [place] Z71.89 Other specified [place] [facility] counselingwith Provider Comments: Other specified counseling Diagnosis: ICD-10-CM active Diagnosis [facility] F43.12 Post-traumatic CLINIC stress disorder, chronicwith Provider Comments: Chronic post-traumatic stress disorder ([facility] [id number]) Diagnosis: ICD-10-CM active Diagnosis [place] N17.[address] [facility] failure, unspecifiedwith Provider Comments: Acute kidney failure, unspecified Diagnosis: ICD-10-CM active Diagnosis [place] Z46.1 Encounter for [place] [facility] fitting and adjustment of hearing aidwith Provider Comments: Encounter for Fitting and Adjustment of Hearing Aid Diagnosis: ICD-10-CM active Diagnosis ST. 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 Provider Comments: DM - Diabetes mellitus ([facility] [id number]) Diagnosis: ICD-10-CM active Diagnosis [place] F33.1 Major depressive [place] [facility] disorder, recurrent, moderatewith Provider Comments: Major depressive disorder ([facility] [id number]) Diagnosis: ICD-10-CM active Diagnosis [place] F32.9 Major depressive [place] [facility] disorder, single episode, unspecifiedwith Provider Comments: Major depressive disorder, single episode, unspecified (ICD-10-CM F32.9) Diagnosis: ICD-10-CM active Diagnosis [place] I50.41 Acute combined [place] [facility] systolic and diastolic (congestive) hrt failwith Provider Comments: Acute combined systolic (congestive) and diastolic (congestive) heart failure (ICD-10-CM I50.41) Diagnosis: ICD-10-CM active Diagnosis ST. I50.89 Other heart [place] failurewith Provider CBOC Comments: Other heart failure Diagnosis: ICD-10-CM active Diagnosis [facility] F41.9 Anxiety CLINIC disorder, unspecifiedwith Provider Comments: Anxiety Disorder, unspecified Diagnosis: ICD-10-CM active Diagnosis [place] R09.02 Hypoxemiawith [place] [facility] Provider Comments: Hypoxemia Diagnosis: ICD-10-CM active Diagnosis [place] L03.031 Cellulitis of [place] [facility] right toewith Provider Comments: Cellulitis of right Toe Diagnosis: ICD-10-CM active Diagnosis [place] E11.628 Type 2 [place] [facility] diabetes mellitus with other skin complicationswith Provider Comments: Type 2 Diabetes Mellitus with other Skin Complications Diagnosis: ICD-10-CM active Diagnosis [place] F32.9 Major depressive [place] [facility] disorder, single episode, unspecifiedwith Provider Comments: Depressive disorder ([facility] [id number]) Diagnosis: ICD-10-CM active Diagnosis ST. M21.371 Foot drop, [place] right footwith CBOC Provider Comments: Foot Drop, right Foot Diagnosis: ICD-10-CM active Diagnosis ST. 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 H90.3 Sensorineural [place] hearing loss, CBOC bilateralwith Provider Comments: Asymmetrical sensorineural hearing loss ([facility] [id number]) Diagnosis: ICD-10-CM active Diagnosis [facility] F43.10 Post-traumatic CLINIC stress disorder, unspecifiedwith Provider Comments: Post-Traumatic Stress Disorder, unspecified Diagnosis: ICD-10-CM active Diagnosis [place] E11.40 Type 2 diabetes [facility] [facility] mellitus with diabetic neuropathy, unspwith Provider Comments: Type 2 Diabetes Mellitus with Diabetic Neuropathy, unspecified Diagnosis: ICD-10-CM active Diagnosis [place] I50.9 Heart failure, [place] [facility] unspecifiedwith Provider Comments: Heart failure, unspecified (ICD-10-CM I50.9) Diagnosis: ICD-10-CM active Diagnosis [place] I25.10 Athscl heart [place] [facility] disease of [place] coronary artery w/o ang pctrswith Provider Comments: Atherosclerotic Heart Disease of [place] Coronary Artery without Angina Pectoris Diagnosis: ICD-10-CM active Diagnosis [place] I50.[address] [facility] diastolic (congestive) heart failurewith Provider Comments: Heart Failure,Diastolic,Unsp ec Diagnosis: ICD-10-CM active Diagnosis [place] I25.5 Ischemic [place] [facility] cardiomyopathywith Provider Comments: Ischemic Cardiomyopathy Diagnosis: ICD-10-CM active Diagnosis [place] I25.5 Ischemic [place] [facility] cardiomyopathywith Provider Comments: Ischemic cardiomyopathy Diagnosis: ICD-10-CM active Diagnosis [place] 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 R53.1 Weaknesswith Abdirahman RAMIREZWALLACE Provider Comments: C BOC Weakness Diagnosis: ICD-10-CM active Diagnosis ST. I13.0 Hyp hrt & chr [facility] kdny dis w hrt fail CBOC and stg 1-4/unsp chr kdnywith Provider Comments: Hypertensive Heart and Chronic Kidney Disease with Heart Failure and Stage 1 through Stage 4 Chronic Kidney Disease, or unspecified Chronic Kidney Disease Diagnosis: ICD-10-CM active Diagnosis MARCOS SWARTZ H25.13 Age-related J CT [facility] nuclear cataract, bilateralwith Provider Comments: Age-Related Nuclear Cataract, Bilateral Diagnosis: ICD-10-CM active Diagnosis MARCOS SWARTZ R00.2 Palpitationswith [facility] [facility] Provider Comments: Palpitations Diagnosis: ICD-10-CM active Diagnosis ST. J44.9 Chronic [place] obstructive pulmonary CBOC disease, unspecifiedwith Provider Comments: COPD,Unspec Medications Combined list of outpatient medications from Department of Defense and Veterans Affairs facilities. Medications provided include 1) outpatient medications from the last 15 months, and 2) patient-reported medications. Medication Details Route Status Patient Prescription Prescription Last Ordering Order Source Instructions Expires Number Dispense Provider Date Date ALBUTEROL INHALE 2 ACTIVE 12/31/2022 [id number] GEMIGN ANI 12/30/ MARCOS 90MCG/ACTUA PUFFS BY ACMRON Bolanos 2021 BAN RODRIGUEZ T (CFC-F) MOUTH S JCT INHL,ORAL,8 EVERY VAMROC .5GM DOSE FOUR TO COUNTER SIX HOURS NEEDED FOR BREATHIN G ALBUTEROL INHALE 2 DISCONT 03/06/2022 [id number] MAURO VILLANUEVA 03/06/ ST. 90MCG/ACTUA PUFFS BY INUE 2 UREN P 2020 JACY PATELU T (CFC-F) MOUTH RY CBOC INHL,ORAL,8 EVERY .5GM DOSE FOUR TO COUNTER SIX HOURS NEEDED FOR BREATHIN G ALLOPURINOL TAKE TWO ORAL ACTIVE 08/28/2022 [id number] G EMIGNANI 09/08/ MARCOS 100MG TAB TABLETS CAMRON Bolanos 2020 [place] BY MOUTH S J[place] EVERY VAMROC DAY FOR GOUT ALLOPURINOL TAKE TWO ORAL DISCONT 09/22/2021 [id number] RODIER,LA 09/23/ ST. 100MG TAB TABLETS INUE 1 URE P 2019 [place] BY MOUTH RY CBOC EVERY DAY FOR GOUT ASPIRIN TAKE ONE ORAL ACTIVE KATARI,[place] 10/31/ WHI TE 81MG TAB,EC TABLET KULWANT 2018 [place] BY MOUTH [place] EVERY VAMROC DAY ATORVASTATI TAKE ONE ORAL ACTIVE 06/21/2022 [id number] R ODIER,LA 06/25/ ST. N CA 80MG TABLET 2 UREN P 2020 [place] TAB BY MOUTH RY CBOC EVERY DAY TO LOWER CHOLESTE ROL ATORVASTATI TAKE ONE ORAL DISCONT 05/25/2021 [id number] S Dereje SOTO 05/25/ ST. N CA 80MG TABLET INUE 1 ICH2019 [place] TAB BY MOUTH RY CBOC EVERY DAY TO LOWER CHOLESTE ROL BUPROPION TAKE ONE ORAL ACTIVE 07/16/2022 [id number] PHONG, MAURO 07/16/ ST. HCL 150MG TABLET 2 UREN P 2020 [place] 24HR TAB,SA BY MOUTH RY CB OC EVERY DAY FOR DEPRESSI ON BUPROPION TAKE ONE ORAL 06/21/2021 [id number] TREFET HEN 06/21/ WHITE HCL 150MG TABLET 1 ,2019 [place] 24HR TAB,SA BY MOUTH J[place] EVERY VAM[facility]OC MORNING FOR DEPRESSI ON CADEXOMER APPLY TOPICA 08/07/2021 [id number] FLEISHMA N 07/08/ WHITE IODINE 0.9% SMALL LLY ,2020 [place] R GEL,TOP AMOUNT [place] JCT TOPICALL VAMROC Y EVERY DAY FOR DIABETIC ULCER CAPSAICIN APPLY TOPICA DISCONT 04/05/2022 [id number] Tejinder DARLING 04/05/ ST. 0.1% SMALL LLY INUED 2 UREN P 2020 [place] CREAM,TOP AMOUNT RY CBOC TOPICALL Y FOUR TIMES DAILY NEEDED FOR LOCALIZE D PAIN CARBOXYMETH INSTILL BOTH ACTIVE 01/25/2023 [id number] YOVANY AGUILERA 01/24/ WHITE YLCELLULOSE TWO EYES 2 HARD E 2021 [place] NA 0.5% DROPS IN JCT (PF) BOTH VAMROC SOLN,OPH,0. EYES 4ML FOUR TIMES A DAY FOR DRYNESS CARBOXYMETH INSTILL BOTH 01/22/2022 [id number] NINA Y,AN 01/23/ WHITE YLCELLULOSE ONE DROP EYES 2 SAVANA 2020 [place] NA 0.5% IN BOTH JCT (PF) EYES VAMROC SOLN,OPH,0. FOUR 4ML TIMES A DAY FOR DRYNESS CARVEDILOL TAKE ONE ORAL HOLD 07/08/2022 [id number] CARRION, PE 04/10/ WHITE 3.125MG TAB TABLET 2 TER 2021 [place] BY MOUTH [place] J[place] TWICE VAMROC DAILY WITH MEALS CARVEDILOL TAKE ONE ORAL DISCONT 08/28/2022 [id number] G EMIGNANI 10/03/ WHITE 6.25MG TAB TABLET INUED 2 ,CAMRON 2020 [place] BY MOUTH (EDIT) S JCT TWICE VAMROC DAILY WITH MEALS CARVEDILOL TAKE ONE ORAL DISCONT 09/29/2021 [id number] GEMIG SIHKHA 10/02/ WHITE 6.25MG TAB TABLET INUE 1 ,CAMRON 2019 [place] BY MOUTH S JCT TWICE VAMROC DAILY WITH MEALS CIPROFLOXAC TAKE ONE ORAL 08/07/2021 [id number] W HITESEL, 07/09/ WHITE IN HCL TABLET 1 ISAEL L 2020 [place] 500MG TAB BY MOUTH J[place] TWICE A VAMROC DAY CLINDAMYCIN TAKE TWO ORAL 08/07/2021 [id number] W HITESEL, 07/09/ WHITE HCL 150MG CAPSULES 1 ISAEL L 2020 [facility] CAP BY MOUTH JCT FOUR VAMROC TIMES A DAY FOR INFECTIO N CLOPIDOGREL TAKE ONE ORAL DISCONT 04/21/2022 [id number] ZAMBRANO,L 01/23/ WHITE BISULFATE TABLET INUED 2 AUREN 2021 [place] 75MG TAB BY MOUTH [place] J[place] EVERY VAMROC DAY TO PREVENT BLOOD CLOTS CLOPIDOGREL TAKE ONE ORAL DISCONT 12/26/2021 [id number] PUENTES, 02/07/ WHITE BISULFATE TABLET INUED 2 LAKESHA 2020 [place] 75MG TAB BY MOUTH M JCT EVERY VAMROC DAY TO PREVENT BLOOD CLOTS DOCUSATE NA TAKE TWO ORAL ACTIVE 12/10/2022 [id number] C DESTIN DOMINGO 12/10/ BRATTLE 100MG CAP CAPSULES 2 RA E 2021 BOR[place] BY MOUTH CBOC TWICE A DAY TO SOFTEN STOOL DOCUSATE NA TAKE TWO ORAL DISCONT 09/22/2021 [id number] R MAURO MONAHAN 09/23/ ST. 100MG CAP CAPSULES INUE 1 UREN P 2019 [place] U BY MOUTH RY CBOC TWICE A DAY TO SOFTEN STOOL DOXYCYCLINE TAKE ONE ORAL DISCONT 02/28/2022 [id number] W HITTINGT 01/29/ WHITE HYCLATE TABLET INUED 2 ON,2021 [place] 100MG TAB BY MOUTH NE E JCT TWICE A VAMROC DAY FOR INFECTIO N DOXYCYCLINE TAKE ONE ORAL 10/04/2021 [id number] W HITTINGT 09/04/ WHITE HYCLATE TABLET 1 ON,2020 [place] 100MG TAB BY MOUTH NE E JCT TWICE A VAMROC DAY FOR DIABETIC FOOT INFECTIO N DRESSING,HY APPLY TOPICA 04/26/2022 [id number] WHITTI NGT 05/08/ WHITE DROGEL SMALL LLY 2 ON,2020 [place] GEL,TOP AMOUNT NE E JCT TOPICALL VAMROC Y EVERY DAY TO PROMOTE WOUND HEALING FERROUS SO4 TAKE ONE ORAL 01/17/2022 [id number] MAURO DARLING 03/14/ ST. 325MG TAB TABLET 2 UREN P 2020 [place] BY MOUTH RY CBOC TWICE A DAY TO SUPPLEME NT IRON FLUTICASONE INHALE 1 ACTIVE 08/21/2022 [id number] MAURO VILLANUEVA 08/20/ ST. 500MCG/SALM PUFF BY 2 UREN P 2020 GRAYSON BU ETEROL MOUTH RY CBOC 50MCG TWICE A INHL,ORAL,D DAY FOR ISKUS,60 BREATHIN G/RINSE MOUTH WITH WATER,SW RASHIDA AROUND AND SPIT OUT AFTER USING INHALER GABAPENTIN TAKE ORAL HOLD 04/11/2023 [id number] BANDARAGE 04/10/ WHITE 300MG CAP THREE 2 ,DINETH 2021 [place] CAPSULES HAMZAH J[place] BY MOUTH VAMROC THREE TIMES A DAY TO PREVENT SEIZURES OR PAIN GABAPENTIN TAKE ONE ORAL DISCONT 12/28/2022 [id number] G EMIGNANI 01/16/ WHITE 300MG CAP CAPSULE INUED 2 ,CAMRON 2021 [place] BY MOUTH (EDIT) S JCT EVERY VAMROC MORNING AND TAKE TWO CAPSULES EVERY EVENING TO PREVENT SEIZURES OR PAIN GABAPENTIN TAKE ONE ORAL DISCONT 10/29/2022 [id number] R ODIER,LA 10/28/ ST. 300MG CAP CAPSULE INUE 2 UREN P 2021 [place] BY MOUTH RY CBOC EVERY MORNING AND TAKE TWO CAPSULES EVERY EVENING TO PREVENT SEIZURES OR PAIN GABAPENTIN TAKE ONE ORAL DISCONT 12/26/2021 [id number] S ULLIBRIELLE, 03/14/ WHITE 300MG CAP CAPSULE INUE 1 LAKESHA 2020 [place] BY MOUTH M JCT EVERY VAMROC MORNING AND TAKE TWO CAPSULES EVERY EVENING TO PREVENT SEIZURES OR PAIN GLUCOSE 4GM CHEW ORAL 08/14/2021 [id number] RODKENDY ,MAURO 07/16/ ST. TAB,CHEW FOUR 1 UREN P 2020 [place] TABLETS RY CBOC BY MOUTH DIRECTED INSULIN USE SUBCUT ACTIVE 12/10/2022 [id number] CLUBB,WEIR 12/10/ BRATTLE SYRINGE 1ML SYRINGE/ ANEOUS 2 RA E 2021 BORO 30G 12MM NEEDLE CBOC SUBCUTAN EOUSLY AT BEDTIME FOR INSULIN INJECTIO NS INSULIN USE SUBCUT DISCONT 11/06/2021 [id number] RODIER,LA 11/05/ ST. SYRINGE 1ML SYRINGE/ ANEOUS INUE 1 UREN P 2020 [place] NS[place] 30G 12MM NEEDLE RY CBOC SUBCUTAN EOUSLY AT BEDTIME FOR INSULIN INJECTIO NS INSULIN,ASP INJECT SUBCUT ACTIVE 01/15/2023 [id number] LEO KAMARA 01/15/ WHITE ART,HUMAN SLIDING ANEOUS 2 SEPH B 2021 [place] 100U/ML,NOV SCALE JCT OLOG,FLEXPE SUBCUTAN VAMRO C N,3ML EOUSLY THREE TIMES A DAY DIRECTED DEPENDIN G ON BLOOD GLUCOSE READINGS INJECT 6-10 UNITS BEFORE BREAKFAS T, INJECT 3-8 UNITS BEFORE LUNCH, AND INJECT 4-8 UNITS BEFORE DINNER INSULIN,ASP INJECT 3 SUBCUT DISCONT 01/17/2022 [id number] RODIER,LA 03/19/ ST. ART,HUMAN TO 5 ANEOUS INUED 2 UREN P 2020 [place] 100U/ML,NOV UNITS RY CBOC OLOG,FLEXPE SUBCUTAN N,3ML EOUSLY TWICE DAILY WITH MEALS -DISCARD 28 DAYS AFTER FIRST USE. REFRIGER ATE UNOPENED PENS. USE 3 UNITS WITH BREAKFAS T AND 5 UNITS WITH SUPPER INSULIN,GLA INJECT SUBCUT HOLD 04/11/2023 [id number] PATHANG EY 04/10/ WHITE RGINE,HUMAN 40 UNITS ANEOUS 2 ,HAWA 2021 RI JENNIFER 100 UNT/ML SUBCUTAN JCT INJ EOUSLY [facility] EVERY DAY - DISCARD OPEN VIALS AFTER 28 DAYS. REFRIGER ATE UNOPENED VIALS INSULIN,GLA INJECT SUBCUT DISCONT 01/15/2023 [id number] ROLANDO AGE,LEO 01/15/ Departm RGINE,HUMAN 45 UNITS ANEOUS INUED 2 SEPH B 2021 ent of 100 UNT/ML SUBCUTAN (EDIT) Veter an INJ EOUSLY s TWICE A Affairs DAY - DISCARD OPEN VIALS AFTER 28 DAYS. REFRIGER ATE UNOPENED VIALS INSULIN,GLA INJECT SUBCUT DISCONT 01/17/2022 [id number] RO DIERLA 03/25/ ST. RGINE,HUMAN 62 UNITS ANEOUS INUED 2 UREN P 2020 MARTA NSBU 100 UNT/ML SUBCUTAN RY CBO C INJ EOUSLY TWICE A DAY - DISCARD OPEN VIALS AFTER 28 DAYS. REFRIGER ATE UNOPENED VIALS ISOSORBIDE TAKE ONE ORAL HOLD 06/27/2022 [id number] NG,SPE NCE 05/15/ WHITE MONONITRATE TABLET 2 R M 2021 RIVER 120MG BY MOUTH JCT TAB,SA EVERY [facility] DAY TO PREVENT ANGINA ISOSORBIDE TAKE ONE ORAL DISCONT 03/30/2022 [id number] G EMIGNANI 02/24/ WHITE MONONITRATE TABLET INUED 2 ,CAMRON 2021 RIVE R 120MG BY MOUTH S JCT TAB,SA EVERY [facility] DAY TO PREVENT ANGINA ISOSORBIDE TAKE ONE ORAL DISCONT 03/09/2022 [id number] C JOSE LWERI 02/24/ BRATTLE MONONITRATE TABLET INUE 2 RA E 2021 BORO 120MG BY MOUTH CBOC TAB,SA EVERY DAY TO PREVENT ANGINA ISOSORBIDE TAKE ONE ORAL DISCONT 12/26/2021 [id number] S ULLIVAN, 02/17/ WHITE MONONITRATE TABLET INUE 2 LAKESHA 2020 RIVE R 120MG BY MOUTH M JCT TAB,SA EVERY [facility] DAY TO PREVENT ANGINA LEVOFLOXACI TAKE TWO ORAL DISCONT 03/06/2022 [id number] W HITTINGT 02/04/ WHITE N 250MG TAB TABLETS INUED 2 ON,2021 RI JENNIFER BY MOUTH NE E JCT EVERY [facility] DAY FOR 1 DAY, THEN TAKE ONE TABLET EVERY DAY LEVOFLOXACI TAKE ONE ORAL 03/14/2022 [id number] W HITTINGT 02/12/ WHITE N 250MG TAB TABLET 2 ON,2021 ZAK ER BY MOUTH NE E JCT EVERY 24 [facility] HOURS LIDOCAINE APPLY TO TOPICA ACTIVE 07/19/2022 [id number] RODIER ,LA 07/24/ ST. 4% AFFECTED LLY 2 UREN P 2020 [place] CREAM,TOP AREA RY CBOC TOPICALL Y TWICE A DAY LIDOCAINE APPLY 2 TOPICA ACTIVE 01/22/2023 [id number] ZAMBRANO ,L 01/21/ WHITE 5% PATCH PATCHES LLY 2 AUREN 2021 RIVER TOPICALL GARRICK JCT Y EVERY [facility] DAY NEEDED ,APPLY PATCH TO MOST PAINFUL AREA (LEAVE ON 12 HOURS THEN REMOVE) MAX 1 PATCH PER DAY LIDOCAINE APPLY 1 TOPICA DISCONT 07/16/2022 [id number] LEONARDO IER,LA 07/16/ ST. 5% PATCH PATCH LLY INUED 2 UREN P 2020 [place] TOPICALL (EDIT) RY CBOC Y EVERY DAY ,APPLY PATCH TO MOST PAINFUL AREA (LEAVE ON 12 HOURS THEN REMOVE) MAX 1 PATCH PER DAY LIDOCAINE APPLY 1 TOPICA DISCONT 06/01/2021 [id number] LEONARDO IER,LA 06/01/ ST. 5% PATCH PATCH LLY INUE 1 UREN P 2019 [place] TOPICALL RY CB[facility] Y EVERY DAY ,APPLY PATCH TO MOST PAINFUL AREA (LEAVE ON 12 HOURS THEN REMOVE) MAX 1 PATCH PER DAY LIRAGLUTIDE INJECT SUBCUT DISCONT 09/22/2021 [id number] LEONARDO IER,LA 09/30/ ST. (VICTOZA) 1.8MG ANEOUS INUED 1 UREN P 2019 [place] 6MG/ML SUBCUTAN RY CBOC INJ,SOLN,PE EOUSLY N,3ML EVERY DAY LOSARTAN TAKE ONE ORAL DISCONT 12/10/2022 [id number] CLUBB, WEIR 02/01/ BRATTLE 50MG TAB TABLET INUED 2 RA E 2021 B[place] BY MOUTH CBOC EVERY DAY FOR BLOOD PRESSURE /HEART LOSARTAN TAKE ONE ORAL DISCONT 12/26/2021 [id number] SULLIVA N, 12/27/ WHITE 50MG TAB TABLET INUE 2 LAKESHA 2020 RIVER BY MOUTH M JCT EVERY [facility] DAY FOR BLOOD PRESSURE /HEART METOLAZONE TAKE ONE ORAL HOLD 04/11/2023 [id number] BANDARA GE 04/10/ WHITE 2.5MG TAB TABLET 2 ,DINETH 2021 RIVER BY MOUTH HAMZAH JCT EVERY [facility] DAY NEEDED FOR WEIGHT GAIN GREATER THAN 2.5 LBS ABOVE BASELINE METOLAZONE TAKE ONE ORAL DISCONT 08/28/2022 [id number] G EMIGNANI 09/01/ WHITE 2.5MG TAB TABLET INUED 2 ,CAMRON 2020 RIVER BY MOUTH (EDIT) S JCT EVERY [facility] DAY NEEDED METOLAZONE TAKE ONE ORAL DISCONT 03/06/2022 [id number] R ODIER,LA 03/06/ ST. 2.5MG TAB TABLET INUE 1 UREN P 2020 [place] BY MOUTH RY CBOC EVERY DAY NEEDED METRONIDAZO TAKE ONE ORAL DISCONT 03/06/2022 [id number] W HITTINGT 02/04/ WHITE LE 500MG TABLET INUED 2 ON,CAROLI 2021 RIVER TAB BY MOUTH NE E JCT TWICE A [facility] DAY FOR CELLULIT IS PER ID RECOMMEN DATION METRONIDAZO TAKE ONE ORAL 03/14/2022 [id number] W HITTINGT 02/12/ WHITE LE 500MG TABLET 2 ON,CAROLI 2021 RIVER TAB BY MOUTH NE E JCT TWICE A [facility]OC DAY FOR INFECTIO N NALOXONE SPRAY ACTIVE 06/15/2022 [id number] ZAMBRANO,L 0 03/18/ WHITE HCL ONE 2 AUREN 2021 RIVER 4MG/SPRAY SPRAY GARRICK JCT SOLN,SPRAY, INTRANAS VAM[facility] C NASAL ALLY DIRECTED TO REVERSE OPIOID OVERDOSE . IF NO RESPONSE MAY REPEAT EVERY 2 TO 3 MINUTES ALTERNAT ING NOSTRIL - CALL 911 NEEDLE,PEN USE ONE 08/02/2021 [id number] Dereje MENDEZ JAG 08/01/ WHITE 31G,5MM NEEDLE 1 A C 2019 RIVER JCT DIRECTED [facility] - ONE TIME USE ONLY; DO NOT REUSE. DISPOSE OF PROPERLY . TO BE USED WITH NOVOLOG (ASPART) INSULIN PEN NITROGLYCER PLACE SUBLIN HOLD 04/11/2023 [id number] PATHANG EY WHITE IN ONE GUNH 2 ,HAWA 2021 RIVER 0.4MG/SPRAY SPRAY JCT AEROSOL UNDER [facility] THE TONGUE EVERY 5 MINUTES NEEDED FOR A MAX OF 3 SPRAYS IN 15 MINUTES. DO NOT INHALE SPRAY IF PAIN IS UNRELIEV ED AFTER 5 MINUTES SEEK MEDICAL ATTENTIO N PROMPTLY . NITROGLYCER PLACE SUBLIN DISCONT 02/05/2022 [id number] MAURO DARLING 02/07/ WHITE IN ONE GUNH INUED 2 UREN P 2020 RIVER 0.4MG/SPRAY SPRAY JCT AEROSOL UNDER [facility] THE TONGUE EVERY 5 MINUTES NEEDED FOR A MAX OF 3 SPRAYS IN 15 MINUTES. DO NOT INHALE SPRAY IF PAIN IS UNRELIEV ED AFTER 5 MINUTES SEEK MEDICAL ATTENTIO N PROMPTLY . OMEPRAZOLE TAKE ONE ORAL 04/21/2022 [id number] PROCT OR,L WHITE 20MG CAP,EC CAPSULE 2 AUREN 2021 RIVER BY MOUTH GARRICK JCT EVERY [facility] MORNING BEFORE BREAKFAS T FOR STOMACH ACID (TAKE HALF-LAURO R BEFORE A MEAL(S) OXYCODONE TAKE ONE ORAL DISCONT 10/06/2021 [id number] [place], [place] 09/06/ ST. HCL 5MG TAB TO TWO INUE 1 UREN P 2020 J[place] U TABLETS RY CBOC BY MOUTH EVERY FOUR HOURS NEEDED FOR PAIN NO MORE THAN 10 TABS/24 HOURS OXYCODONE TAKE ONE ORAL DISCONT 10/04/2021 [id number] [place], [place] 09/06/ ST. HCL 5MG TAB TO TWO INUED 1 UREN P 2020 JOHNSB U TABLETS (EDIT) RY CBOC BY MOUTH Q4HPRN FOR PAIN NO MORE THAN 10 TABS/24 HOURS OXYCODONE TAKE ONE ORAL DISCONT 07/05/2021 [id number] [place], [place] 06/05/ ST. HCL 5MG TAB TO TWO INUE 1 UREN P 2020 [place] U TABLETS RY CBOC BY MOUTH EVERY FOUR HOURS NEEDED FOR PAIN 10 TABLETS/ 24 HOURS OXYCODONE TAKE ONE ORAL DISCONT 06/05/2021 [id number] [place], [place] 05/06/ ST. HCL 5MG TAB TO TWO INUE 1 UREN P 2020 [place] U TABLETS RY CBOC BY MOUTH EVERY FOUR HOURS NEEDED FOR PAIN 10 TABLETS/ 24 HOURS OXYCODONE TAKE ONE ORAL DISCONT 05/09/2021 [id number] [place], [place] 04/09/ ST. HCL 5MG TAB TO TWO INUE 1 UREN P 2020 [place] U TABLETS RY CBOC BY MOUTH EVERY FOUR HOURS NEEDED FOR PAIN 10 TABLETS/ 24 HOURS OXYCODONE TAKE TWO ORAL 04/17/2022 [id number] ZAMBRANO ,L 03/18/ WHITE HCL 5MG TAB TABLETS 2 AUREN 2021 RIVER BY MOUTH GARRICK JCT EVERY [facility] FOUR HOURS NEEDED FOR PAIN MAX 10 PER DAY OXYCODONE TAKE ONE ORAL 03/07/2022 [id number] ZAMBRANO ,L 02/06/ WHITE HCL 5MG TAB TO TWO 2 AUREN 2021 RIVER TABLETS GARRICK JCT BY MOUTH [facility] EVERY FOUR HOURS NEEDED FOR PAIN MAX 10/DAY OXYCODONE TAKE ONE ORAL 02/05/2022 [id number] ZAMBRANO ,L 01/06/ WHITE HCL 5MG TAB TO TWO 2 AUREN 2021 RIVER TABLETS GARRICK JCT BY MOUTH [facility] EVERY FOUR HOURS NEEDED FOR PAIN MAX 10/DAY OXYCODONE TAKE ONE ORAL 01/03/2022 [id number] ZAMBRANO ,L 12/05/ WHITE HCL 5MG TAB TO TWO 2 AUREN 2021 RIVER TABLETS GARRICK JCT BY MOUTH [facility] EVERY FOUR HOURS NEEDED FOR PAIN MAX 10/24 HOURS OXYCODONE TAKE ONE ORAL 12/01/2021 [id number] [place], [place] 11/04/ ST. HCL 5MG TAB TO TWO 2 UREN P 2021 [place] U TABLETS RY CBOC BY MOUTH EVERY FOUR HOURS NEEDED FOR PAIN NO MORE THAN 10 TABLETS/ 24 HOURS OXYCODONE TAKE ONE ORAL 11/03/2021 [id number] [place], [place] 10/04/ ST. HCL 5MG TAB TO TWO 1 UREN P 2020 [place] U TABLETS RY CBOC BY MOUTH EVERY FOUR HOURS NEEDED FOR PAIN NO MORE THAN 10 TABS/24H OURS OXYCODONE TAKE ONE ORAL 09/05/2021 [id number] [place], [place] 08/06/ ST. HCL 5MG TAB TO TWO 1 UREN P 2020 [place] U TABLETS RY CBOC BY MOUTH EVERY FOUR HOURS NEEDED FOR PAIN NO MORE THAN 10 TABS/24 HOURS OXYCODONE TAKE ONE ORAL 08/03/2021 [id number] Dereje CLAYTON 07/05/ ST. HCL 5MG TAB TO TWO 1 ICHAEL 2020 [place] U TABLETS RY CBOC BY MOUTH EVERY FOUR HOURS NEEDED FOR PAIN 10 TABLETS/ 24 HOURS POTASSIUM TAKE SIX ORAL ACTIVE 08/17/2022 [id number] GEMIGNA NI 08/22/ WHITE CHLORIDE TABLETS 2 ,CAMRON 2020 RIVER 10MEQ BY MOUTH S JCT TAB,SA EVERY [facility] DAY TO SUPPLEME NT POTASSIU M POTASSIUM TAKE ORAL DISCONT 01/17/2022 [id number] RODKENDY,L A 04/11/ ST. CHLORIDE FOUR INUED 1 UREN P 2020 [place] 10MEQ TABLETS (EDIT) RY CBOC TAB,SA BY MOUTH EVERY DAY TO SUPPLEME NT POTASSIU M SEMAGLUTIDE INJECT SUBCUT DISCONT 09/04/2022 [id number] LEONARDO IERMAURO 09/04/ WHITE 0.5MG/0.375 0.5MG ANEOUS INUED 2 UREN P 2020 RIVER ML SUBCUTAN JCT INJ,SOLN,PE EOUSLY [facility] N,1.5ML ONCE A WEEK FOR DIABETES . DISCARD 56 DAYS AFTER FIRST USE. REFRIGER ATE UNOPENED PENS. . THIS REPLACES LIRAGLUT TONY (VICTOZA ). THERE ARE 4 DOSES IN EACH PEN. SEMAGLUTIDE INJECT SUBCUT 03/11/2022 [id number] ROLANDO AGE,LEO [birth year]/19/ Departm 0.5MG/0.375 0.25MG ANEOUS 2 SEPH B 2021 ent o f ML SUBCUTAN [place] INJ,SOLN,PE EOUSLY s N,1.5ML ONCE A Affairs WEEK FOR FOUR WEEKS THEN INCREASE TO 0.5MG WEEKLY FOR DIABETES . DISCARD 56 DAYS AFTER FIRST USE. REFRIGER ATE UNOPENED PENS. SENNOSIDES TAKE ONE ORAL ACTIVE 12/31/2022 [id number] GEMIG SHIKHA 02/19/ WHITE 8.6MG TAB TABLET 2 ,CAMRON 2021 RIVER BY MOUTH S JCT TWICE [facility] DAILY NEEDED FOR CONSTIPA TION SENNOSIDES TAKE ONE ORAL DISCONT 02/20/2022 [id number] R MAURO MONAHAN 02/20/ ST. 8.6MG TAB TABLET INUE 2 UREN P 2020 [place] BY MOUTH RY CBOC TWICE DAILY NEEDED FOR CONSTIPA TION SERTRALINE TAKE ONE ORAL ACTIVE 12/10/2022 [id number] CLUBB DESTIN 12/10/ BRATTLE HCL 100MG TABLET 2 RA E 2021 [place] TAB BY MOUTH CBOC EVERY MORNING FOR DEPRESSI ON OR ANXIETY SERTRALINE TAKE ONE ORAL DISCONT 05/01/2022 [id number] TREFE THEN 04/30/ WHITE HCL 100MG TABLET INUE 1 ,JOY 2020 RIVER TAB BY MOUTH JCT EVERY [facility] MORNING FOR DEPRESSI ON OR ANXIETY SERTRALINE TAKE ORAL DISCONT 04/23/2022 [id number] Tejinder DARLING 04/24/ ST. HCL 100MG ONE-HALF INUED 1 UREN P 202 [place] U TAB TABLET RY CBOC BY MOUTH EVERY DAY FOR DEPRESSI ON OR ANXIETY NOTE DOSE CHANGE/T ABLET STRENGTH SERTRALINE TAKE ONE ORAL DISCONT 06/03/2021 [id number] EMPERATRIZ Hernandez,LA 04/20/ ST. HCL 100MG TABLET INUED 1 UREN P 202 [place] TAB BY MOUTH (EDIT) RY CBOC EVERY DAY FOR DEPRESSI ON OR ANXIETY NOTE DOSE CHANGE/T ABLET STRENGTH TAMSULOSIN TAKE ONE ORAL ACTIVE 12/31/2022 [id number] GEMIG SHIKHA 01/25/ WHITE HCL 0.4MG CAPSULE 2 ,2021 RIVER CAP BY MOUTH S JCT AT [facility] BEDTIME 30 MINUTES AFTER THE SAME MEALTIME EACH DAY FOR PROSTATE /URINARY SYMPTOMS . TAMSULOSIN TAKE ONE ORAL DISCONT 01/17/2022 [id number] MAURO MAGALLANES 01/30/ ST. HCL 0.4MG CAPSULE INUE 2 UREN P 2020 [place] CAP BY MOUTH RY CBOC AT BEDTIME 30 MINUTES AFTER THE SAME MEALTIME EACH DAY FOR PROSTATE /URINARY SYMPTOMS . TIOTROPIUM INHALE 2 ACTIVE 12/10/2022 [id number] CLUBB ,WEIR 02/01/ BRATTLE 2.5MCG/ACTU PUFFS BY 2 RA E 2021 [place] AT MOUTH CBOC INHL,ORAL,6 EVERY 0D,4GM DAY TIOTROPIUM INHALE 2 DISCONT 01/17/2022 [id number] EMPERATRIZ HernandezLA 01/18/ ST. 2.5MCG/ACTU PUFFS BY INUE 2 UREN P 202 JACY SBU AT MOUTH RY CBOC INHL,ORAL,6 EVERY 0D,4GM DAY TORSEMIDE TAKE ORAL DISCONT 12/31/2022 [id number] GEMIGNAN I 01/16/ WHITE 10MG TAB THREE INUED 2 ,CAMRON 2021 RIVER TABLETS S JCT BY MOUTH [facility] TWICE A DAY TORSEMIDE TAKE ORAL DISCONT 07/27/2022 [id number] RODIER,L A 07/28/ ST. 10MG TAB THREE INUE 2 UREN P 2020 [place] TABLETS RY CBOC BY MOUTH TWICE A DAY TORSEMIDE TAKE ORAL DISCONT 09/22/2021 [id number] RODKENDY,L A 09/23/ ST. 10MG TAB THREE INUE 1 UREN P 2019 [place] TABLETS RY CB[facility] BY MOUTH TWICE A DAY TORSEMIDE TAKE ORAL 05/09/2022 [id number] CARRION,PE 04/10/ WHITE 20MG TAB FOUR 2 TER 2021 RIVER TABLETS ANAMIKA JCT BY MOUTH [facility] EVERY DAY TRAZODONE TAKE TWO ORAL HOLD 04/10/2023 [id number] CARRION, PE 04/10/ WHITE HCL 100MG TABLETS 2 TER 2021 RIVER TAB BY MOUTH ANAMIKA JCT AT [facility]OC BEDTIME AND TAKE ONE TABLET AT BEDTIME NEEDED FOR SLEEP TRAZODONE TAKE TWO ORAL DISCONT 01/17/2022 [id number] RODIE R,LA 01/18/ ST. HCL 100MG TABLETS INUED 2 UREN P 2020 [place] TAB BY MOUTH RY CBOC AT BEDTIME AND TAKE ONE TABLET AT BEDTIME NEEDED FOR SLEEP Allergies, Adverse Reactions, Alerts Combined list of allergies from Department of Defense and Veterans Affairs facilities. It does not include entries that were removed or entered in error. Substance Category Reaction Severity Reaction Status Date Comments S ource type Reported ATENOLOL Propensity Dizziness Propensity active WHITE to adverse to adverse 4 RI JENNIFER reactions reactions JCT to drug to drug [facility] (finding) (finding) PENICILLIN Propensity Urticaria Propensity active WHITE to adverse to adverse 2 RI JENNIFER reactions reactions JCT to drug to drug [facility] (finding) (finding) PREGABALIN Propensity Retention Propensity active WHITE to adverse of urine to adverse 6 R IVER reactions reactions JCT to drug to drug [facility] (finding) (finding) Immunizations Combined list of available immunizations from the Department of Defense and Veterans Affairs facilities. Immunization Series Date Administered Site Reaction Lot CVX Drug St atus Comments Source Given By Number Code Bobbin Dumper COVID-19 4 complet MOD; WH ITE (MODERNA), 2021 ed [id number]; RIVER MRNA, LNP-S, 02 JCT PF, 100 2 [facility] MCG/0.5ML DOSE OR 50 MCG/0.25ML DOSE COVID-19 3 complet WH ITE (MODERNA), 2020 ed ZAK ER MRNA, LNP-S, J CT PF, 100 [facility] MCG/0.5ML DOSE OR 50 MCG/0.25ML DOSE INFLUENZA, complet WHITE UNSPECIFIED 2020 ed RI JENNIFER FORMULATION TODD T [facility] COVID-19 2 complet MOD; ITE (MODERNA), 2020 ed [id number]; RIVER MRNA, LNP-S, 02 JCT PF, 100 1 [facility] MCG/0.5 ML DOSE COVID-19 1 complet MOD; ITE (MODERNA), 2020 ed [id number]; RIVER MRNA, LNP-S, 02 JCT PF, 100 1 [facility] MCG/0.5 ML DOSE INFLUENZA, complet ST. INJECTABLE, 2019 ed [facility]O [facility] QUADRIVALENT, RY CBOC PRESERVATIVE FREE TD(ADULT) complet Site: S T. UNSPECIFIED 2019 ed Left [facility] FORMULATION Deltoid RY CBOC INFLUENZA, complet Site: ST. INJECTABLE, 2018 ed Left [place] QUADRIVALENT, Deltoi d RY CBOC PRESERVATIVE FREE ZOSTER [address] RECOMBINANT 2018 ed [facility] RY CBOC INFLUENZA, complet Site: WHITE SEASONAL, 2018 ed Left RIVE R INJECTABLE Deltoid J CT [facility] ZOSTER 1 complet OSMAR LET RECOMBINANT 2017 ed ON HOSPITA L INFLUENZA, complet Site: ST. UNSPECIFIED 2015 ed Left [facility] FORMULATION Deltoid RY CBOC PNEUMOCOCCAL complet ST. CONJUGATE PCV 2014 ed [facility] 13 RY CBOC INFLUENZA, complet Site: ST. UNSPECIFIED 2014 ed Left [facility] FORMULATION Deltoid RY CBOC INFLUENZA, complet Site: ST. UNSPECIFIED 2013 ed Left [facility] FORMULATION Deltoid RY CBOC INFLUENZA, complet Site: ST. UNSPECIFIED 2012 ed Left [facility] FORMULATION Deltoid RY CBOC ZOSTER LIVE complet Site: WHITE 2012 ed Left RIVER Deltoid JCT [facility] PNEUMOCOCCAL, complet Sit e: ST. UNSPECIFIED 2012 ed Left [facility] FORMULATION Deltoid RY CBOC INFLUENZA, complet Site: ST. UNSPECIFIED 2011 ed Left [facility] [facility] FORMULATION Deltoid RY CBOC TDAP complet Site: ST. 2011 ed Left J[place] Deltoid RY CBO C INFLUENZA, complet WHITE UNSPECIFIED 2010 ed RI JENNIFER FORMULATION TODD T [facility] INFLUENZA, complet Dr. RODRÍGUEZ UNSPECIFIED 2009 ed Zabroski RIVER FORMULATION [facility] TODD T [facility] INFLUENZA, complet WHITE UNSPECIFIED 2007 ed RI JENNIFER FORMULATION TODD T [facility] PNEUMOCOCCAL, complet WHITE UNSPECIFIED 2004 ed RI JENNIFER FORMULATION TODD T [facility] TD(ADULT) complet W NICOLA UNSPECIFIED 2000 ed RI JENNIFER FORMULATION TODD T [facility] Results Combined list of recent chemistry, hematology and other laboratory results from Department of Defense and Veterans Affairs, ranging from 15 months to all on record, depending upon the facility. Order Name Results Value Reference Date Interpretation Specimen Com ments Source Range ANCILLARY GLUCOSE 211 65 - 100 04/10 H Specimen Type : BLOOD WHITE GLUCOSE [MASS/VOLUME /2021 Comment: F OR ANC GLUTest performed by: Eduardo Mercer FOR ANC GLU Meter #: [id number] RIVER ] IN BLOOD Ordering Pro vider: MARINO BABCOCK BY AUTOMATED Report Rel eased Date/Time: Apr 10, 2022 10:55 AM [facility] TEST STRIP Reporting La b: [facility] [place] [address] [place] [facility] [place] [place] [address] Performing Lab: [facility] [address] [place] [facility] [place] [address] CBC NO LEUKOCYTES 10.5 4.5 - 11.0 04/10 Specimen T ype: BLOOD WHITE DIFF [#/VOLUME] /2021 No comment en tered. RIVER IN BLOOD BY Ordering Pr ovider: MARINO BABCOCK AUTOMATED Report Releas ed Date/Time: Apr 05, 2022 02:31 PM [facility] COUNT Reporting Lab: [facility] [address] [place] [facility] [place] [address] Performing Lab: [facility] [address] [place] [facility] [place] [address] CBC NO ERYTHROCYTES 4.30 4.23 - 06 Specimen Ty pe: BLOOD WHITE DIFF [#/VOLUME] 5.66 /2021 No comment en tered. RIVER IN BLOOD BY Ordering Pr ovider: MARINO BABCOCKT AUTOMATED Report Releas ed Date/Time: Apr 05, 2022 02:31 PM [facility] COUNT Reporting Lab: [facility] [address] [facility] [address] Performing Lab: [facility] [address] [facility] [address] CBC NO HEMOGLOBIN 11.3 12.8 - 17 04/10 L Specimen Ty pe: BLOOD WHITE DIFF [MASS/VOLUME /2021 No comment entered. RIVER ] IN BLOOD Ordering Pro vider: MARINO BABCOCK JCT Report Released Date/Time: Apr 05, 2022 02:31 PM [facility] Reporting Lab: [facility] [address] [place] [facility] [place] [address] Performing Lab: [facility] [address] [place] [facility] [place] [address] CBC NO HEMATOCRIT 37.0 39.2 - 04/10 L Specimen Type : BLOOD WHITE DIFF [VOLUME 50.4 /2021 No comment enter ed. RIVER FRACTION] OF Ordering P rovider: MARINO BABCOCKT BLOOD BY Report Release d Date/Time: Apr 05, 2022 02:31 PM [facility] AUTOMATED Reporting Lab : [facility] COUNT [address] [place] [facility] [place] [address] Performing Lab: [facility] [address] [place] [facility] [place] [address] CBC NO MCV [ENTITIC 86.0 82 - 99 04/10 Specimen Ty pe: BLOOD WHITE DIFF VOLUME] BY /2021 No comment en tered. RIVER AUTOMATED Ordering Prov ider: MARINO BABCOCKT COUNT Report Released Date/Time: Apr 05, 2022 02:31 PM [facility] Reporting Lab: [facility] [address] [facility] [address] Performing Lab: [facility] [address] [facility] [address] CBC NO MCH [ENTITIC 26.3 26.2 - 04/10 Specimen Ty pe: BLOOD WHITE DIFF MASS] BY 32.6 /2021 No comment ente red. RIVER AUTOMATED Ordering Prov ider: MARINO BABCOCKT COUNT Report Released Date/Time: Apr 05, 2022 02:31 PM [facility] Reporting Lab: [facility] [address] [facility] [address] Performing Lab: [facility] [address] [facility] [address] CBC NO MCHC 30.5 30.8 - 04/10 L Specimen Type: B LOOD WHITE DIFF [MASS/VOLUME 35.1 /2021 No comment entered. RIVER ] BY Ordering Provid er: MARINO BABCOCK AUTOMATED Report Releas ed Date/Time: Apr 05, 2022 02:31 PM [facility] COUNT Reporting Lab: [facility] [address] [facility] [address] Performing Lab: [facility] [address] [place] [facility] [place] [address] CBC NO PLATELETS 159 140 - 360 04/10 Specimen Typ e: BLOOD WHITE DIFF [#/VOLUME] /2021 No comment en tered. RIVER IN BLOOD BY Ordering Pr ovider: MARINO BABCOCK AUTOMATED Report Releas ed Date/Time: Apr 05, 2022 02:31 PM [facility] COUNT Reporting Lab: [facility] [address] [facility] [address] Performing Lab: [facility] [address] [place] [facility] [place] [address] CBC NO PLATELET 11.1 9.2 - 12.4 04/10 Specimen Typ e: BLOOD WHITE DIFF MEAN VOLUME /2021 No comment e ntered. RIVER [ENTITIC Ordering Provi minh: MARINO BABCOCK VOLUME] IN Report Relea sed Date/Time: Apr 05, 2022 02:31 PM [facility] BLOOD BY Reporting Lab: [facility] [place] [facility] [address] [facility] [address] COUNT Performing Lab: [facility] [address] [facility] [address] CBC NO ERYTHROCYTE 20.3 12.0 - 06/16 H Specimen Typ e: BLOOD WHITE DIFF DISTRIBUTION 16.0 No comment entered. RIVER WIDTH Ordering Provid er: MARINO BABCOCK [RATIO] BY Report Relea sed Date/Time: Apr 05, 2022 02:31 PM [facility] AUTOMATED Reporting Lab : [facility] [address] [facility] [address] Performing Lab: [facility] [address] [facility] [address] MAGNESIUM MAGNESIUM 1.9 1.6 - 2.6 04/10 Specimen T ype: PLASMA WHITE [MASS/VOLUME /2021 Comment: T ests performed on [employer] (405) [id number] RIVER ] IN SERUM Ordering Pro vider: MARINO BABCOCKT OR PLASMA Report Releas ed Date/Time: Apr 05, 2022 02:31 PM [facility] Reporting Lab: [facility] [place] [facility] [facility] [address] [facility] [address] Performing Lab: [facility] [place] [facility] [address] [facility] [address] P4 UREA 44 7 - 25 04/10 H Specimen Type: P LASMA WHITE GLU,BUN,CR NITROGEN /2021 Comment: Te sts performed on [employer] (405) [id number] RIVER EAT,LYTES, [MASS/VOLUME Orderin g Provider: MARINO BABCOCK [place] ] IN SERUM Report Relea sed Date/Time: Apr 05, 2022 02:31 PM [facility] OR PLASMA Reporting Lab : [place] [place] [facility] [address] [facility] [address] Performing Lab: [facility] [place] [place] [facility] [address] [facility] [address] P4 SODIUM 143 135 - 145 04/10 Specimen Type: PLASMA WHITE GLU,BUN,CR [MOLES/VOLUM /2021 Comment : Tests performed on [employer] Corporate Administrative Assistant (405) SN:[id number] GLENN HAMLINTES, E] IN SERUM Ordering Provider: MARINO BABCOCK [place] OR PLASMA Report Releas ed Date/Time: Apr 05, 2022 02:31 PM [facility] Reporting Lab: [facility] [place] [facility] [address] [facility] [address] Performing Lab: [facility] [place] [facility] [address] [facility] [address] P4 POTASSIUM 3.4 3.5 - 5.0 06/16 L Specimen Typ e: PLASMA WHITE GLU,BUN,CR [MOLES/VOLUM /2021 Comment : Tests performed on [employer] Administrative Assistant (405) SN:[id number] GLENN HAMLINTES, E] IN SERUM Ordering Provider: MARINO BABCOCK [place] OR PLASMA Report Releas ed Date/Time: Apr 05, 2022 02:31 PM [facility] Reporting Lab: [facility] [place] [place] [facility] [address] [facility] [address] Performing Lab: [facility] [place] [facility] [address] [facility] [address] P4 CHLORIDE 96 100 - 110 06/16 L Specimen Type : PLASMA WHITE GLU,BUN,CR [MOLES/VOLUM /2021 Comment : Tests performed on [employer] Corporate Administrative Assistant (405) SN:[id number] GLENN HAMLINTES, E] IN SERUM Ordering Provider: MARINO BABCOCK JCRobert [place] OR PLASMA Report Releas ed Date/Time: Apr 05, 2022 02:31 PM [facility] Reporting Lab: [facility] [place] [place] [facility] [address] [facility] [address] Performing Lab: [facility] [place] [place] [facility] [address] [facility] [address] P4 CARBON 35 20 - 30 06/16 H Specimen Type: P LASMA WHITE GLU,BUN,CR DIOXIDE, /2021 Comment: Te sts performed on [employer] Corporate Administrative Assistant (405) SN:[id number] COLLEEN HAMLIN, TOTAL Ordering Pro vider: MARINO BABCOCK [place] [MOLES/VOLUM Report Rel eased Date/Time: Apr 05, 2022 02:31 PM [facility] E] IN SERUM Reporting L ab: [facility] [place] [facility] [address] [facility] [address] Performing Lab: [facility] [place] [place] [facility] [address] [facility] [address] P4 ANION GAP IN 12 4 - 16 04/10 Specimen Ty pe: PLASMA WHITE GLU,BUN,CR SERUM OR /2021 Comment: Te sts performed on [employer] Corporate Administrative Assistant (405) SN:[id number] RIVER EAT,LYTES, PLASMA Ordering Pro vider: MARINO BABCOCK [place] Report Released Date/Time: Apr 05, 2022 02:31 PM [facility] Reporting Lab: [facility] [place] [place] [facility] [address] [facility] [address] Performing Lab: [facility] [place] [place] [facility] [address] [facility] [address] P4 GLUCOSE 187 65 - 100 04/10 H Specimen Type: PLASMA WHITE GLU,BUN,CR [MASS/VOLUME /2021 Comment : Tests performed on [employer] (405) SN:[id number] RIVER EATLYTES, ] IN SERUM Ordering Provider: MARINO BABCOCK [place] OR PLASMA Report Releas ed Date/Time: Apr 05, 2022 02:31 PM [facility] Reporting Lab: [facility] [place] [place] [facility] [address] [facility] [address] Performing Lab: [facility] [place] [place] [facility] [address] [facility] [address] P4 CREATININE 1.09 0.5 - 1.5 04/10 Specimen Ty pe: PLASMA WHITE GLU,BUN,CR [MASS/VOLUME /2021 Comment : Tests performed on [employer] (405) SN:[id number] [place] EATLY[place], ] IN SERUM Ordering Provider: MARINO BABCOCK [place] OR PLASMA Report Releas ed Date/Time: Apr 05, 2022 02:31 PM [facility] Reporting Lab: [facility] [address] [place] [facility] [place] [address] Performing Lab: [facility] [address] [facility] [address] P4 CALCIUM 9.7 8.5 - 10.5 04/10 Specimen Type : PLASMA WHITE GLU,BUN,CR [MASS/VOLUME /2021 Comment : Tests performed on [employer] Corporate Administrative Assistant (405) SN:[id number] [place] EATLYTES, ] IN SERUM Ordering Provider: MARINO BABCOCK CA OR PLASMA Report Releas ed Date/Time: Apr 05, 2022 02:31 PM [facility] Reporting Lab: [facility] [address] [facility] [address] Performing Lab: [facility] [address] [facility] [address] P4 eGFR(CKD-EPI 71 60 04/10 Specimen Ty pe: PLASMA WHITE GLU,BUN,CR 2020) /2021 Comment: Celia ts performed on [employer] Corporate Administrative Assistant (405) SN:[id number] COLLEEN HAMLIN, Ordering Pro vider: MARINO BABCOCK CA Report Released Date/Time: Apr 05, 2022 02:31 PM [facility] Reporting Lab: [facility] [place] [facility] [facility] [address] [facility] [address] Performing Lab: [facility] [place] [facility] [facility] [address] [facility] [address] PHOSPHORUS PHOSPHATE 3.1 2.5 - 5.0 04/10 Specimen Type: PLASMA WHITE [MASS/VOLUME /2021 Comment: T ests performed on [employer] Corporate Administrative Assistant (405) SN:[id number] [place] ] IN SERUM Ordering Pro vider: MARINO BABCOCKT OR PLASMA Report Releas ed Date/Time: Apr 05, 2022 02:31 PM [facility] Reporting Lab: [facility] [place] [facility] [address] [place] [facility] [place] [address] Performing Lab: [facility] [place] [facility] [address] [facility] [address] ANCILLARY GLUCOSE 185 65 - 100 04/10 H Specimen Type : BLOOD WHITE GLUCOSE [MASS/VOLUME /2021 Comment: F OR ANC GLUTest performed by: Eugene Roberts FOR ANC GLU Meter #: [id number] [place] ] IN BLOOD Ordering Pro vider: MARINO BABCOCK BY AUTOMATED Report Rel eased Date/Time: Apr 10, 2022 06:20 AM [facility] TEST STRIP Reporting La b: [facility] [address] [facility] [address] Performing Lab: [facility] [address] [place] [facility] [place] [address] CALCIUM CALCIUM 9.6 8.5 - 10.5 04/09 Specimen Type : PLASMA WHITE [MASS/VOLUME /2021 Comment: T esting Performed on [employer] Corporate Administrative Assistant (405) SN:[id number] [place] ] IN SERUM Ordering Pro vider: NOE CARRIONT OR PLASMA Report Releas ed Date/Time: Apr 09, 2022 12:01 PM [facility] Reporting Lab: [facility] [address] [place] [facility] [place] [address] Performing Lab: [facility] [address] [place] [facility] [place] [address] CREATININE CREATININE 1.18 0.5 - 1.5 04/09 Specimen Type: PLASMA WHITE WITH eGFR [MASS/VOLUME /2021 Comment: Testing Performed on [employer] Corporate Administrative Assistant (405) SN:[id number] R[place] PANEL ] IN SERUM Ordering Pro vider: NOE CARRIONT OR PLASMA Report Releas ed Date/Time: Apr 09, 2022 12:01 PM [facility] Reporting Lab: [facility] [address] [place] [facility] [place] [address] Performing Lab: [facility] [address] [place] [facility] [place] [address] CREATININE eGFR(CKD-EPI 65 60 04/09 Specimen Type: PLASMA WHITE WITH eGFR /2021 Comment: Test ing Performed on [employer] Corporate Administrative Assistant (405) SN:[id number] R[place] PANEL Ordering Provid er: NOE CARRION Report Released Date/Time: Apr 09, 2022 12:01 PM [facility] Reporting Lab: [facility] [address] [place] [facility] [place] [address] Performing Lab: [facility] [address] [place] [facility] [place] [address] ELECTROLYT SODIUM 142 135 - 145 04/09 Specimen Ty pe: PLASMA WHITE ES [MOLES/VOLUM /2021 Comment: T esting Performed on [employer] Corporate Administrative Assistant (405) SN:[id number] Tests performed on [employer] Corporate Administrative Assistant (405) SN:[id number] RIVER E] IN SERUM Ordering Pr ovider: NOE CARRIONT OR PLASMA Report Releas ed Date/Time: Apr 09, 2022 12:01 PM [facility] Reporting Lab: [facility] [address] [facility] [address] Performing Lab: [facility] [address] [facility] [address] ELECTROLYT POTASSIUM 3.2 3.5 - 5.0 06/15 L Specimen Type: PLASMA WHITE ES [MOLES/VOLUM /2021 Comment: T esting Performed on [employer] Corporate Administrative Assistant (405) SN:[id number] Tests performed on [employer] Corporate Administrative Assistant (405) SN:[id number] RIVER E] IN SERUM Ordering Pr ovider: NOE CARRIONT OR PLASMA Report Releas ed Date/Time: Apr 09, 2022 12:01 PM [facility] Reporting Lab: [facility] [address] [facility] [address] Performing Lab: [facility] [address] [facility] [address] ELECTROLYT CHLORIDE 96 100 - 110 06/15 L Specimen T ype: PLASMA WHITE ES [MOLES/VOLUM /2021 Comment: T esting Performed on [employer] Corporate Administrative Assistant (405) SN:[id number] Tests performed on [employer] Corporate Administrative Assistant (405) SN:[id number] RIVER E] IN SERUM Ordering Pr ovider: NOE CARRIONT OR PLASMA Report Releas ed Date/Time: Apr 09, 2022 12:01 PM [facility] Reporting Lab: [facility] [address] [facility] [address] Performing Lab: [facility] [address] [facility] [address] ELECTROLYT CARBON 37 20 - 30 06/15 H Specimen Type : PLASMA WHITE ES DIOXIDE, /2021 Comment: Testi ng Performed on [employer] Corporate Administrative Assistant (405) SN:[id number] Tests performed on [employer] Corporate Administrative Assistant (405) SN:[id number] RIVER TOTAL Ordering Provid er: NOE CARRIONT [MOLES/VOLUM Report Rel eased Date/Time: Apr 09, 2022 12:01 PM [facility] E] IN SERUM Reporting L ab: [facility] OR PLASMA [address] [facility] [address] Performing Lab: [facility] [address] [facility] [address] GLUCOSE GLUCOSE 200 65 - 100 06/15 H Specimen Type: PLASMA WHITE [MASS/VOLUME /2021 Comment: T esting Performed on [employer] Corporate Administrative Assistant 405 SN:[id number] R[place] ] IN SERUM Ordering Pro vider: NOE CARRIONT OR PLASMA Report Releas ed Date/Time: Apr 09, 2022 12:01 PM [facility] Reporting Lab: [facility] [address] [place] [facility] [place] [address] Performing Lab: [facility] [address] [place] [facility] [place] [address] Vital Signs Combined list of inpatient and outpatient Vital Signs from Department of Defense and Veterans Affairs, ranging from 12 months to all on record, depending upon the facility. Vital Sign Value Date Comments Source PAIN 8 04/10/2022 02:51:00 [facility] [place] [facility] [facility] PAIN 0 04/09/2022 02:22:00 [facility] [place] [facility] SYSTOLIC BLOOD PRESSURE 148 04/08/2022 04:19:05 [facility] DIASTOLIC BLOOD PRESSURE 64 04/08/2022 04:19:05 [facility] PULSE OXIMETRY 92% 04/08/2022 04:19:05 [facility] PAIN 4 04/08/2022 04:19:05 [facility] [place] [facility] TEMPERATURE 98.1 04/08/2022 04:19:05 [facility] [place] [facility] PULSE 66 04/08/2022 04:19:05 [facility] [place] [facility] RESPIRATION 18 04/08/2022 04:19:05 [facility] [place] [facility] [facility] SYSTOLIC BLOOD PRESSURE 126 04/07/2022 04:14:39 [facility] DIASTOLIC BLOOD PRESSURE 56 04/07/2022 04:14:39 [facility] PULSE OXIMETRY 92% 04/07/2022 04:14:39 [facility] PAIN 0 04/07/2022 04:14:39 [facility] [place] [facility] TEMPERATURE 98.1 04/07/2022 04:14:39 [facility] [place] [facility] PULSE 54 04/07/2022 04:14:39 [facility] [facility] RESPIRATION 18 04/07/2022 04:14:39 [facility] [facility] PAIN 0 04/06/2022 02:34:00 [facility] [place] [facility] [facility] Encounters Combined list of: 1) Encounters from Department of Veterans Affairs facilities going back up to the last 18 months, not all VA inpatient encounters are included; 2) Encounters from the Department of Defense facilities going back up to 280 months. Location Location Encounter Encounter Reason Attending ADM DC Stat us Disposition Source Details Type Number For Provider Date Date Visit Outpatient 40722-1.40 12/17 WHIT E Encounter [id number] /2020 [facility] OFFICE O/P 65998-2.40 Diagnos Dereje SOTO 12/18 ST. EST [id number] is: ARYANN JOHNS MINIMAL 10 ICD-10- RY CBOC PROB CM J44.9 Chronic obstruc tive pulmona ry disease , unspeci fied
with Provide r Comment s: COPD,Un spec Outpatient 19006-0.40 Diagnos BARBARA PIRES 12/19 WHITE Encounter [id number] is: RGARET /2020 RIVE R ICD-10- JCT CM [facility] I50.41 Acute combine d systoli c and diastol ic (conges tive) hrt fail
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
with Provide r Comment s: Foot Drop, right Foot Outpatient 20915-3.40 12/25 WHIT E Encounter [id number] /2020 [facility] OXYGEN 18518-3.40 Diagnos ALEJA,F 12/25 [place] [facility] [id number] is: RANK S ZAK ER OR ICD-10- [place] CM [facility] R09.02 Hypoxem ia
with Provide r Comment s: Hypoxem ia OFFICE O/P 87945-0.40 Diagnos Dereje PUENTES 12/25 WHITE EST HI [id number] is: ARGARERobert M /2021 R[place] R 40-54 MIN ICD-10- [place] [facility] G47.31 Primary central sleep apnea<b r/>with Provide r Comment s: Central sleep apnea (SCT [id number] 5) Outpatient 66428-7.40 12/28 [facility] ORT Encounter [id number] [facility] THERAPEUTI 65248-9.40 Diagnos MICUCCI,SA 12/31 ST. C [id number] is: LLY JOHNSBU EXERCISES 56 ICD-10- RY CBOC CM R53.1 Weaknes s
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
with Provide r Comment s: DM - Diabete s mellitu s (SCT [id number] 9) ECG 86223-4.40 Diagnos MUSA,AM 01/03 WH ITE MONIT/REPR [id number] is: RIVE R T UP TO 48 ICD-10- [place] HRS CM [facility] R00.2 Palpita tions<b r/>with Provide r Comment s: Palpita tions Outpatient 56041-7.40 01/11 WHIT E Encounter [id number] /2021 [facility] Outpatient 39402-8.40 01/11 WHIT E Encounter [id number] /2021 [facility] Outpatient 54467-4.40 01/11 NEWP ORT Encounter [id number] [facility] Out[facility] 98213-6.40 01/16 WHIT E Encounter [id number] /2021 [facility] DETERMINE 65992-4.40 Diagnos IRIZARRY,AND 01/21 WHITE REFRACTIVE [id number] is: MARIA L RIVE R STATE ICD-10- [place] [facility] H25.13 Age-rel ated nuclear catarac t, bilater al
with Provide r Comment s: Age-Rel ated Nuclear Catarac t, Bilater al Outpatient 51530-4.40 Diagnos BARBARA PIRES 01/22 WHITE Encounter [id number] is: RGARET RIVE R ICD-10- [place] CM [facility] I50.41 Acute combine d systoli c and diastol ic (conges tive) hrt fail
with Provide r Comment s: Acute combine d systoli c (conges tive) and diastol ic (conges tive) heart failure (ICD-10 -CM I50.41) Outpatient 59832-2.40 01/24 WHIT E Encounter [id number] [facility] OXYGEN 54643-8.40 Diagnos ALEJAF 01/25 [facility] [place] [facility] [id number] is: RANK S ZAK ER OR ICD-10- [place] CM [facility] R09.02 Hypoxem ia
with Provide r Comment s: Hypoxem ia HC PRO 01816-4.40 Diagnos CALOS MONROE 01/31 [place] PHONE CALL [id number] is: EL W [place] 11-20 MIN 23 ICD-10- CLINIC CM F43.12 Post-tr aumatic stress disorde r, chronic
Provide r Comment s: Chronic post-tr aumatic stress disorde r (SCT [id number] 04) THERAPEUTI 02422-3.40 Diagnos MICUCCI,SA 02/05 ST. [id number] is: LLY JOHNSBU EXERCISES 93 ICD-10- RY CBOC CM G89.29 Other chronic pain
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
with Provide r Comment s: DM - Diabete s mellitu s (SCT [id number] 9) THERAPEUTI 89365-8.40 Diagnos MICUCCI,SA 02/11 ST. C [id number] is: LLY JOHNS EXERCISES 43 ICD-10- RY CBOC CM R53.1 Weaknes s
w ith Provide r Comment s: Weaknes s Outpatient 50578-9.40 02/11 WHIT E Encounter [id number] [facility] Outpatient 05908-6.40 02/11 WHIT E Encounter [id number] [facility] Outpatient 24458-2.40 02/11 WHIT E Encounter [id number] [facility] Outpatient 63495-040 02/11 WHIT E Encounter [id number] /2021 [facility] Outpatient 39941-640 02/18 WHIT E Encounter [id number] /2021 [facility] HC PRO 46468-840 Diagnos BARBARA PIRES 02/18 [place] PHONE CALL [id number] is: RGARET ZAK ER 21-30 MIN ICD-10- [facility] [facility] I50.41 Acute combine d systoli c and diastol ic (conges tive) hrt fail
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
with Provide r Comment s: Major depress kevin disorde r, single episode , unspeci fied (ICD-10 -CM F32.9) OXYGEN 90906-1.40 Diagnos ALEJAF 02/21 [place] [facility] [id number] is: RANK S /2020 ZAK ER OR ICD-10- [facility] [facility] R09.02 Hypoxem ia
with Provide r Comment s: Hypoxem ia Outpatient 86117-740 02/21 WHIT E Encounter [id number] /2021 [facility] HC PRO 58184-440 Diagnos CALOS MONROE 02/21 [place] PHONE CALL [id number] is: EL W [place] 11-20 MIN 15 ICD-10- CLINIC CM F43.12 Post-tr aumatic stress disorde r, chronic
wi th Provide r Comment s: Chronic post-tr aumatic stress disorde r (SCT [id number] 04) HC PRO 52376-9. Diagnos PRANAYBARBARA 02/25 [place] PHONE CALL [id number] is: RGARE ZAK ER 21-30 MIN ICD-10- [facility] [facility] F32.9 Major depress kevin disorde r, single episode , unspeci fied
with Provide r Comment s: Depress kevin disorde r (SCT [id number] 7) HC PRO 40470-1 Diagnos BARBARA PIRES 02/25 [place] PHONE CALL [id number] is: RGARE ZAK ER 21-30 MIN ICD-10- [facility] [facility] I50.41 Acute combine d systoli c and diastol ic (conges tive) hrt fail
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 Diagnos MICUCCI,SA 02/26 ST. C [id number] is: LLY JOHNSBU EXERCISES 62 ICD-10- RY CBOC CM R53.1 Weaknes s
w ith Provide r Comment s: Weaknes s Outpatient 48658-8.40 02/28 WHIT E Encounter [id number] /2021 [facility] OFFICE O/P 03167-9 Diagnos DESTIN DARLING 03/05 ST. 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
with Provide r Comment s: Hyperte nsive Heart and Chronic Kidney Disease with Heart Failure and Stage 1 through Stage 4 Chronic Kidney Disease , or unspec[place] [address]-5.40 Diagnos TREFETHEN, 03/05 WHITE DIG [id number] is: RIVER ASSMT&MGMT ICD-10- JCT 21+ CM [facility] F33.1 Major depress kevin disorde r, recurre nt, moderat e
w ith Provide r Comment s: Major depress kevin disorde r ([facility] [id number] 00) Outpatient 83221-103/05 WHIT E Encounter [id number] /2021 [facility] HC PRO 38115-3.40 Diagnos TREFETHEN, 03/06 [place] PHONE CALL [id number] is: ZAK ER 11-20 MIN ICD-10- [facility] CM [facility] F32.9 Major depress kevin disorde r, single episode , unspeci fied
with Provide r Comment s: Depress kevin disorde r ([facility] [id number] 7) HC PRO 33242-8 Diagnos MONROE,SAMU 03/06 [place] PHONE CALL [id number] is: EL W [place] 11-20 MIN 20 ICD-10- CLINIC CM F43.12 Post-tr aumatic stress disorde r, chronic
wi th Provide r Comment s: Chronic post-tr aumatic stress disorde r ([facility] [id number] 04) Outpatient 03/07 WHIT E Encounter [id number] [facility] THERAPEUTI Diagnos MICUCCI,SA 03/08 ST. C [id number] is: LLY JOHNSBU EXERCISES 37 ICD-10- RY CBOC CM G89.29 Other chronic pain
with Provide r Comment s: Chronic pain (SCT [id number] 1) Outpatient 03/08 WHIT E Encounter [id number] /2021 [facility] Out[facility] 28541-7.40 03/12 WHIT E Encounter [id number] /2021 [facility] Outpatient 05066-303/12 WHIT E Encounter [id number] /2021 [facility] Outpatient 28818-4.40 03/12 WHIT E Encounter [id number] [facility] Outpatient 70809-8.40 03/12 WHIT E Encounter [id number] [facility] THERAPEUTI 60341-9.40 Diagnos NAFISA,SA 03/14 ST[facility] C [id number].[id number] is: LLY JOHNS EXERCISES 97 ICD-10- RY CBOC CM R53.1 Weaknes s
w ith Provide r Comment s: Weaknes s Outpatient 73121-540 03/15 WHIT E Encounter [id number] [facility] HC PRO 63310-3 Diagnos LENOREHeather, 03/18 [place] PHONE CALL [id number] is: JOY ZAK ER 5-10 MIN ICD-10- [facility] [facility] F32.9 Major depress kevin disorde r, single episode , unspeci fied
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
with Provide r Comment s: Dysphag ia (SCT [id number] 0) Outpatient Diagnos BARBARA PIRES 03/21 WHITE Encounter [id number] is: RGARET RIVE R ICD-10- [place] [facility] F32.9 Major depress kevin disorde r, single episode , unspeci fied
with Provide r Comment s: Major depress kevin disorde r, single episode , unspeci fied (ICD-10 -CM F32.9) HEARING 66426-9.40 Diagnos CHELSEY 03/[facility] EXAM [id number] is: HLEY GRAYSON BU BOTH EARS 05 ICD-10- RY CBOC CM H90.3 Sensori neural hearing loss, bilater al
with Provide r Comment s: Asymmet rical sensori neural hearing loss ([facility] [id number] 09) Outpatient 12985-2.40 Diagnos LYSSA BARNETT 03/28 WHITE Encounter [id number] is: RIVER ICD-10- [facility] [facility] H90.A22 Snsrnrl hear loss, uni, l ear, with rstrcd hear cntra side
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
with Provide r Comment s: Type 2 Diabete s Mellitu s with Diabeti c Autonom ic (Poly)N europat hy TTE 59795-6.40 Diagnos DAYANI, 03/29 WH ITE W/DOPPLER [id number] is: CAMRON R IVER COMPLETE ICD-10- [facility] [facility] I25.5 Ischemi c cardiom yopathy
wi th Provide r Comment s: [place]schemi [place] TTE 64148-8.40 Diagnos GEMIGNANI, 03/29 WH ITE W/DOPPLER [id number] is: CAMRON S R IVER COMPLETE ICD-10- [facility] [facility] I25.5 Ischemi c cardiom yopathy
wi th Provide r Comment s: Ischemi c cardiom yopathy OFFICE O/P 84931-2.40 Diagnos GEMIGNANI, 03/29 WHITE EST MOD [id number] is: CAMRON S ZAK ER 30-39 MIN ICD-10- [facility] [facility] I50.30 Unspeci fied diastol ic (conges tive) heart failure
Provide r Comment s: Heart Failure ,Diasto lic,Uns pec Outpatient 15530-040 03/29 WHIT E Encounter [id number] [facility] OXYGEN 13536-5.40 Diagnos ALEJA,Jose 03/29 [facility] [place] [facility] [id number] is: DANYELLE S ZAK ER OR ICD-10- [facility] [facility] R09.02 Hypoxem ia
with Provide r Comment s: Hypoxem ia HC PRO 44425-4.40 Diagnos GHADA COOK 04/02 [place] PHONE CALL [id number] is: RIVE R 21-30 MIN ICD-10- [facility] CM [facility] F32.9 Major depress kevin disorde r, single episode , unspeci fied
with Provide r Comment s: Depress kevin disorde r ([facility] [id number] 7) Outpatient 68841-7 Diagnos PEYMAN, 04/05 WHITE Encounter [id number] is: CAMRON S R IVER ICD-10- [facility] CM [facility] I25.10 Athscl heart disease of [place] coronar y artery w/o ang pctrs<b r/>with Provide r Comment s: Atheros cleroti c Heart Disease of [place] Coronar y Artery without Angina Pectori s Outpatient 21936-504/05 WHIT E Encounter [id number] [facility] HC PRO 62289-3.40 Diagnos ANILA, 04/08 [place] PHONE CALL [id number] is: JOY ZAK ER 11-20 MIN ICD-10- [facility] [facility] F32.9 Major depress kevin disorde r, single episode , unspeci fied
with Provide r Comment s: Depress kevin disorde r (SCT [id number] 7) Outpatient 71437-7.40 04/09 WHIT E Encounter [id number] /2021 [facility] Outpatient 62149-9.40 04/09 WHIT E Encounter [id number] /2021 [facility] Outpatient 33785-8.40 04/09 WHIT E Encounter [id number] /2021 [facility] Outpatient 10500-8.40 Diagnos DESTIN DARLING 04/09 ST. Encounter [id number] is: JAMIN P [facility] 93 ICD-10- RY CBOC CM I50.41 Acute combine d systoli c and diastol ic (conges tive) hrt fail
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
Provide r Comment s: Chronic post-tr aumatic stress disorde r (SCT [id number] 04) Outpatient 78743-1.40 04/19 WHIT E Encounter [id number] [facility] Outpatient 98332-4.40 Diagnos BARBARA PIRES 04/19 WHITE Encounter [id number] is: RG RIVE R ICD-10- [facility] I50.9 Heart failure , unspeci fied
with Provide r Comment s: Heart failure , unspeci fied (ICD-10 -CM I50.9) Outpatient 39834-9.40 Diagnos BARBARA PIRES 04/19 WHITE Encounter [id number] is: RGARE RIVE R ICD-10- [facility] [facility] F32.9 Major depress kevin disorde r, single episode , unspeci fied
with Provide r Comment s: Major depress kevin disorde r, single episode , unspeci fied (ICD-10 -CM F32.9) OXYGEN 88232-9.40 Diagnos ALEJA,F 04/23 [place] [facility] [id number] is: RANK S ZAK ER OR ICD-10- [facility] CM [facility] R09.02 Hypoxem ia
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
with Provide r Comment s: Type 2 Diabete s Mellitu s with Diabeti c Neuropa thy, unspeci fied HC PRO 10042-1.40 Diagnos ANILA, 04/30 [place] PHONE CALL [phone] is: JOY ZAK ER 11-20 MIN ICD-10- [facility] F32.9 Major depress kevin disorde r, single episode , unspeci fied
with Provide r Comment s: Depress kevin disorde r (SCT [id number]) Outpatient 45703-0.05/06 WHIT E Encounter [id number] [facility] [facility] Outpatient 07053-505/06 WH[place] E Encounter [id number] [facility] [place] PRO 67390-140 Diagnos MONROECALOS 05/08 [place] PHONE CALL [id number] is: EL VA 11-20 MIN 16 ICD-10- CLINIC CM F43.12 Post-tr aumatic stress disorde r, chronic
wi Provide r Comment s: Chronic post-tr aumatic stress disorde r (SCT [id number]) HC PRO 87597-6.40 Diagnos MONROE,SAMU 05/22 [place] PHONE CALL [id number] is: EL VA 11-20 MIN 69 ICD-10- CLINIC CM F43.10 Post-tr aumatic stress disorde r, unspeci fied
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
with Provide r Comment s: DM - Diabete s mellitu s (SCT [id number]) Outpatient 76623-9.40 Diagnos PRANAYBARBARA 05/23 WHITE Encounter [id number] is: RGARET RIVE R ICD-10- [place] [facility] F32.9 Major depress kevin disorde r, single episode , unspeci fied
with Provide r Comment s: Major depress kevin disorde r, single episode , unspeci fied (ICD-10 -CM F32.9) CONFORMITY 34075-2.40 Diagnos STACY BARBOSA 05/27 ST. EVALUATION [id number] is: JENNIEFREY A /2020 [place] NSBU 08 ICD-10- RY CBOC CM H90.3 Sensori neural hearing loss, bilater al
with Provide r Comment s: Asymmet rical sensori neural hearing loss (SCT [id number]) Outpatient 26001-3.40 05/27 WHIT E Encounter [id number] /2021 [place] [facility] OXYGEN 41878-1.40 Diagnos ALEJAF 05/27 [place] [facility] [id number] is: RANK S ZAK ER OR ICD-10- [facility] R09.02 Hypoxem ia
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
with Provide r Comment s: Portfolio Manager ing, unspeci fied HC PRO 09968-2 Diagnos PRANAYBARBARA 06/13 [place] PHONE CALL 5.70850331 is: RGARE ZAK ER 5-10 MIN ICD-10- [facility] Z79.899 Other senior care (curren t) drug therapy
Provide r Comment s: Other Group Home (Curren t) Drug Therapy HC PRO Diagnos ANILA, 06/18 [place] PHONE CALL 5.11375581 is: ZAK ER 11-20 MIN ICD-10- [facility] F32.9 Major depress kevin disorde r, single episode , unspeci fied
with Provide r Comment s: Depress kevin disorde r ([facility] [id number] 7) OXYGEN Diagnos ALEJA,F 06/18 [place] CONCENTRAT 5.81513483 is: RANK S ZAK ER OR ICD-10- [facility] R09.02 Hypoxem ia
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
with Provide r Comment s: Portfolio Manager ing, unspeci fied OFFICE O/P 28698-440 Diagnos Dereje SOTO 06/21 ST. EST [phone].[phone] is: ALEX [facility] 83 ICD-10- RY [facility]OC PROB CM S90.421 A Blister (nonthe rmal), right great toe, initial encount er
with Provide r Comment s: Blister (Nonthe rmal), right Great Toe, Initial Encount er Outpatient 75740-9.40 06/21 ST. 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
with Provide r Comment s: DM - Diabete s mellitu s (SCT [id number] 9) ORTHOTIC 39543-7.40 Diagnos MICUCCI,SA 06/27 ST. MGMT&TRAIN 5HC.[id number] is: LLY JACY DELGADO G 1ST ENC 65 ICD-10- RY CBOC CM M21.371 Foot drop, right foot
with Provide r Comment s: Foot Drop, right Foot HC PRO 86413-5.40 Diagnos BARBARA PIRES 07/04 [place] PHONE CALL [phone] is: RGARET /2020 ZAK ER 11-20 MIN ICD-10- [facility] F32.9 Major depress kevin disorde r, single episode , unspeci fied
with Provide r Comment s: Depress kevin disorde r ([facility] [id number] 7) Outpatient 52731-2.40 07/04 WHIT E Encounter [id number] /2021 [facility] Outpatient 79402-3.40 07/04 WHIT E Encounter 5. [facility] Outpatient 78299-6.40 07/04 WHIT E Encounter [id number] [facility] EMERGENCY 06093-3.40 Diagnos 07/08 WHI TE DEPT VISIT 5.08922150 is: /2020 RIVE R ICD-10- [facility] E11.628 Type 2 diabete s mellitu s with other skin complic ations< br/>wit h Provide r Comment s: Type 2 Diabete s Mellitu s with other Skin Complic ations OFFICE Diagnos SALEEM,H 07/08 [place] CONSULTATI 5.96993939 is: EATHER L /2020 R IVER ON ICD-10- [facility] L03.031 Celluli tis of right toe<br/ >with Provide r Comment s: Celluli tis of right Toe Outpatient 77250-5.40 07/10 WHIT E Encounter [id number] /2021 [facility] OXYGEN 58091-5.40 Diagnos ALEJA,F 07/15 [place] CONCENTRAT 5.19980158 is: RANK S /2020 ZAK ER OR ICD-10- [facility] R09.02 Hypoxem ia
with Provide r Comment s: Hypoxem ia Outpatient 98640-4.40 07/15 WHIT E Encounter [id number] [facility] OFFICE O/P 82073-0.40 Diagnos HEYDITINGTO 07/16 WHITE EST LOW 5.14053419 is: FAITH Romero RI JENNIFER 20-29 MIN ICD-10- [facility] 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<b r/>with Provide r Comment s: Foot ulcer due to type 2 diabete s mellitu s (SCT [id number]) HC PRO Diagnos CALOS MONROE 07/17 [place] PHONE CALL [phone] is: EL VA 11-20 MIN 67 ICD-10- CLINIC CM F41.9 Anxiety disorde r, unspeci fied
with Provide r Comment s: Anxiety Disorde r, unspeci fied OFFICE O/P Diagnos MAURO DARLINGU 07/18 ST. EST MOD 5HC.[id number] is: JAMIN JOHNSBU 30-39 MIN 47 ICD-10- RY CBOC CM I50.89 Other heart failure
Provide r Comment s: Other heart failure Outpatient Diagnos RAFAEL,JAN 01 WHITE Encounter [id number] is: Y RIVER ICD-10- [facility] G89.29 Other chronic pain
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
with Provide r Comment s: Acute combine d systoli c (conges tive) and diastol ic (conges tive) heart failure (ICD-10 -CM I50.41) HC PRO Diagnos JOSE MISHRA 07/26 [place] PHONE CALL 5.52654521 is: RIVE R 5-10 MIN ICD-10- [facility] Z71.89 Other specifi ed spiritual counselor ing<br/ >with Provide r Comment s: Other specifi ed spiritual counselor ing Outpatient 07/29 WHIT E Encounter [id number] [facility] OFFICE O/P 59525-140 Diagnos MELATO 08/01 WHITE EST LOW 5.86093018 is: FAITH Romero RI JENNIFER 20-29 MIN ICD-10- E [facility] 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<b r/>with Provide r Comment s: Foot ulcer due to type 2 diabete s mellitu s ([facility] [id number] 015142) Outpatient 99088-3.08/02 WHIT E Encounter [id number] /2021 [facility] Outpatient 44653-3.40 08/02 WHIT E Encounter [id number] [facility] Outpatient 36872-9.40 08/06 WHIT E Encounter [id number] [facility] Outpatient 31170-308/06 WHIT E Encounter [id number] [facility] HC PRO 48084-8.40 Diagnos ANILA, 08/07 [place] PHONE CALL 5.92228432 is: JOY ZAK ER 5-10 MIN ICD-10- [facility] F43.12 Post-tr aumatic stress disorde r, chronic
wi th Provide r Comment s: Chronic post-tr aumatic stress disorde r ([facility] [id number] 04) HC PRO 21600-4.40 Diagnos CALOS MONROE 08/07 [place] PHONE CALL [id number] is: EL W VA 11-20 MIN 72 ICD-10- CLINIC CM F43.12 Post-tr aumatic stress disorde r, chronic
wi th Provide r Comment s: Chronic post-tr aumatic stress disorde r ([facility] [id number] 04) OFFICE O/P 32100-4.40 Diagnos PEYMAN, 08/16 WHITE EST MOD 5.32763092 is: CAMRON S ZAK ER 30-39 MIN ICD-10- [facility] I50.9 Heart failure , unspeci fied
with Provide r Comment s: Heart failure (SCT [id number] 7) Outpatient 94873-9.40 08/20 WHIT E Encounter [id number] [facility] OXYGEN 06892-3. Jose Jeffries 08/20 [place] CONC[facility]TRAT 5.99660153 is: RANK S /2020 ZAK ER OR ICD-10- [facility] G47.30 Sleep apnea, unspeci fied
with Provide r Comment s: Sleep Apnea, unspeci fied OFFICE O/P 42769-2 Diagnos ZAYRA 08/21 WHITE EST LOW 5.42854094 is: FAITH Romero RI JENNIFER 20-29 MIN ICD-10- E [facility] 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<b r/>with Provide r Comment s: Foot ulcer due to type 2 diabete s mellitu s (SCT [id number] 595421) Outpatient 99478-2.08/22 WHIT E Encounter [id number] [facility] Out[facility] 39218-0 Bryan PIRES MA 08/22 WHITE Encounter [id number] is: RGARE RIVE R ICD-10- [facility] F32.9 Major depress kevin disorde r, single episode , unspeci fied
with Provide r Comment s: Major depress kevin disorde r, single episode , unspeci fied (ICD-10 -CM F32.9) Outpatient 34481-3.40 08/26 WHIT E Encounter [id number] [facility] Outpatient 64998-5.40 08/27 WHIT E Encounter [id number] [facility] Outpatient 74606-9.40 08/27 WHIT E Encounter [id number] [facility] HC PRO 26550-9. 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
with Provide r Comment s: DM - Diabete s mellitu s (SCT [id number] 9) Outpatient 09/04 WHIT E Encounter [id number] [facility] Outpatient 09/04 WHIT E Encounter [id number] /2021 [facility] OFFICE O/P Diagnos [facility] 09/04 WHITE EST LOW 5.24546977 is: NGOZI RomeroFAITH RI JENNIFER 20-29 MIN ICD-10- E [facility] 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<b r/>with Provide r Comment s: Foot ulcer due to type 2 diabete s mellitu s (SCT [id number] [id number]) OXYGEN 46326-0.40 Diagnos ALEJA,F 09/16 [place] CONCENTRAT 5.36239701 is: RANK S ZAK ER OR ICD-10- [facility] G47.30 Sleep apnea, unspeci fied
with Provide r Comment s: Sleep Apnea, unspeci fied OFFICE O/P [facility]17 WHITE EST MOD 5.09936799 is: FAITH Romero RI JENNIFER 30-39 MIN ICD-10- E [facility] 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<b r/>with Provide r Comment s: Foot ulcer due to type 2 diabete s mellitu s ([facility] [id number] 218325) OFFICE O/P Diagnos RAFAEL,JAN 03 [facility] MOD [id number].[id number] is: Y ELISA JOHNSBU 45-59 MIN 04 ICD-10- RY CBOC CM G89.29 Other chronic pain
with Provide r Comment s: Chronic pain ([facility] [id number] 1) Outpatient 02427-409/24 NEWP ORT Encounter [id number] [place] [facility] Outpatient 51022-240 09/25 WHIT E Encounter [id number] [facility] HEARING 62022-1 Diagnos KRISTI GRAY 09/26 WHITE AID 5.12443993 is: L RIVER SUP/ACCESS ICD-10- [place] /DEV [facility] Z46.1 Encount er for fitting and adjustm ent of hearing aid<br/ >with Provide r Comment s: Encount er for Fitting and Adjustm ent of Hearing Aid Outpatient 72368-209/27 WHIT E Encounter [id number] [facility] HC PRO 73247-9 Diagnos CARLOS MONROELiang 10/01 [place] PHONE CALL [id number] is: EL W VA 11-20 MIN 40 ICD-10- CLINIC CM F43.12 Post-tr aumatic stress disorde r, chronic
wi Provide r Comment s: Chronic post-tr aumatic stress disorde r ([facility] [id number] 04) Outpatient 96155-4. Diagnos KOLANKIEWI 10/01 WHITE Encounter [id number] is: TERESSA TROTTER R IVER ICD-10- [facility] N17.9 Acute kidney failure , unspeci fied
with Provide r Comment s: Acute kidney failure , unspeci fied OFFICE O/P 16770-340 Diagnos [place] 10/02 WHITE EST MOD 5.02878281 is: FAITH Romero RI JENNIFER 30-39 MIN ICD-10- E [facility] 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<b r/>with Provide r Comment s: Foot ulcer due to type 2 diabete s mellitu s ([facility] 7126521 257291) Outpatient 82694-6.40 10/04 WHIT E Encounter [id number] /2021 [facility] Outpatient 24739-2.40 10/04 WHIT E Encounter [id number] [facility] Outpatient 27599-440 10/07 WHIT E Encounter [id number] [facility] Outpatient 89943-7.40 10/08 WHIT E Encounter [id number] /2021 [facility] Outpatient 94137-440 10/09 WHIT E Encounter [id number] /2021 [facility] OFFICE O/P 13217-4.40 Diagnos MELATO 10/16 WHITE EST MOD 5.38773732 is: NFAITH RI JENNIFER 30-39 MIN ICD-10- E T [facility] 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<b r/>with Provide r Comment s: Foot ulcer due to type 2 diabete s mellitu s ([facility] [id number] 488304) Outpatient 87005-040 10/28 WHIT E Encounter [id number] /2022 [facility] HC PRO 98078-0.40 Diagnos CALOS MONROE 10/28 [place] PHONE CALL [id number] is: EL W VA 11-20 MIN 03 ICD-10- CLINIC CM F43.12 Post-tr aumatic stress disorde r, chronic
wi th Provide r Comment s: Chronic post-tr aumatic stress disorde r (SCT 9509051 04) Outpatient 29700-5.40 10/30 WHIT E Encounter [id number] /2022 [facility] Outpatient 29759-668 10/31 CONN ECT Encounter [id number] /2022 [facility] Outpatient 14792-140 11/01 WHIT E Encounter [id number] [facility] Outpatient 94348-5.40 11/01 WHIT E Encounter [id number] [facility] OFFICE O/P 74851-5.40 Diagnos [place] 11/07 WHITE EST MOD 5.00411834 is: FAITH Romero RI JENNIFER 30-39 MIN ICD-10- E [facility] 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<b r/>with Provide r Comment s: Foot ulcer due to type 2 diabete s mellitu s ([facility] [id number] 652993) Outpatient 73702-7.40 11/08 WHIT E Encounter [id number] [facility] HC PRO 08354-1.40 Diagnos TADTON 11/13 [place] PHONE CALL 5.40229860 is: YA RIVE R 5-10 MIN ICD-10- [facility] Z71.89 Other specifi ed spiritual counselor ing<br/ >with Provide r Comment s: Other specifi ed spiritual counselor ing Outpatient 97646-2.40 11/18 WHIT E Encounter [id number] [facility] OXYGEN 97355-2.40 Diagnos ALEJA,F 11/19 [place] CONCENTRAT 5.25969263 is: RANK S ZAK ER OR ICD-10- [facility] G47.30 Sleep apnea, unspeci fied
with Provide r Comment s: Sleep Apnea, unspeci fied Outpatient 04927-0.40 12/03 WHIT E Encounter [id number] [facility] Outpatient 87580-8.40 12/03 WHIT E Encounter [id number] /2022 [facility] Outpatient 74840-6.40 12/06 WHIT E Encounter [id number] [facility] OFFICE O/P 97931-7.40 Diagnos [place] 12/12 WHITE EST MOD 5.62071042 is: NGOZI RomeroFAITH RI JENNIFRE 30-39 MIN ICD-10- E [facility] 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<b r/>with Provide r Comment s: Foot ulcer due to type 2 diabete s mellitu s ([facility] [id number] 422181) OXYGEN 05685-8.40 Diagnos ALEJA,F 12/18 [place] CONCENTRAT 5.13051017 is: DANYELLE S /2021 ZAK ER [place] ICD-10- [facility] G47.30 Sleep apnea, unspeci fied
with Provide r Comment s: Sleep Apnea, unspeci fied OFFICE O/P 66984-0.40 Diagnos PEYMAN, 12/27 WHITE EST MOD 5.51359173 is: CAMRON S /2021 ZAK ER 30-39 MIN ICD-10- [facility] I50.9 Heart failure , unspeci fied
with Provide r Comment s: Heart failure (SCT [id number] 7) Outpatient 21785-9.40 12/31 WHIT E Encounter [id number] /2021 [facility] Outpatient 07678-9.40 01/03 WHIT E Encounter [id number] [facility] Outpatient 27624-8.40 01/03 WHIT E Encounter [id number] [facility] Outpatient 64458-5.40 01/08 WHIT E Encounter [id number] [facility] OFFICE O/P 60397-4.40 Diagnos HEY[place] 01/08 WHITE EST HI 5.21103122 is: NGOZI RomeroFAITH ZAK ER 40-54 MIN ICD-10- E [facility] 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<b r/>with Provide r Comment s: Foot ulcer due to type 2 diabete s mellitu s ([facility] [id number]) Outpatient 85631-7.40 01/08 WHIT E Encounter [id number] [facility] Outpatient 43472-4.40 01/08 WHIT E Encounter [id number] [facility] Outpatient 80167-5.40 01/14 WHIT E Encounter [id number] [facility] OFFICE O/P 36911-0.40 Diagnos ZAMBRANO,LA 01/21 [place] EST [place] 5HC.303930 is: UREN JOHNSBU 40-54 MIN 82 ICD-10- [facility] RY CBO C CM I10 Essenti al (primar y) hyperte nsion<b r/>with Provide r Comment s: HTN - Hyperte nsion ([facility] [id number] 3) OFFICE O/P 21283-4.40 Diagnos EDIE,AND 01/24 WHITE EST MOD 5.81107970 is: MARIA L RIVER 30-39 MIN ICD-10- [facility] E11.9 Type 2 diabete s mellitu s without complic ations< br/>wit h Provide r Comment s: Type 2 Diabete s Mellitu s without Complic ations OFFICE O/P 87554-5.40 Diagnos [place] 01/29 WHITE EST HI 5.48476972 is: FAITH Romero ZAK ER 40-54 MIN ICD-10- E [facility] 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<b r/>with Provide r Comment s: Foot ulcer due to type 2 diabete s mellitu s (SCT [id number] 096384) Outpatient 32192-8.40 Bryan IRIZARRY,YOVANY 01/29 WHITE Encounter 5.17586309 is: HARD A RIVE R ICD-10- [facility] 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<b r/>with Provide r Comment s: Foot ulcer due to type 2 diabete s mellitu s (SCT [id number] 810982) Outpatient 33960-9.40 Diagnos [place] 01/30 WHITE Encounter [id number] is: FAITH Romero RIVER ICD-10- E [facility] 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<b r/>with Provide r Comment s: Foot ulcer due to type 2 diabete s mellitu s (SCT [id number] 806371) Outpatient 98007-1.40 01/31 WHIT E Encounter [id number] [facility] Outpatient 16189-8.40 02/03 WHIT E Encounter [id number] [facility] Outpatient 25607-9.40 02/04 WHIT E Encounter [id number] [facility] Outpatient 50735-240 02/04 WHIT E Encounter [id number] [facility] OFFICE O/P 08162-1.40 Diagnos [facility]04 WHITE EST HI 5.91527225 is: FAITH Romero ZAK ER 40-54 MIN ICD-10- E [facility] 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<b r/>with Provide r Comment s: Foot ulcer due to type 2 diabete s mellitu s (SCT [id number]) Outpatient 13817-2.40 02/05 WHIT E Encounter [id number] /2022 [facility] Outpatient 91912-7.40 Diagnos DAYANI, 02/11 WHITE Encounter [id number] is: CAMRON S R IVER ICD-10- [facility] I50.9 Heart failure , unspeci fied
with Provide r Comment s: Heart failure (SCT [id number] 7) OFFICE O/P 83276-9.40 Diagnos [facility] 02/12 WHITE EST HI 5.89462000 is: FAITH Romero ZAK ER 40-54 MIN ICD-10- E [facility] 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<b r/>with Provide r Comment s: Foot ulcer due to type 2 diabete s mellitu s (SCT [id number]) OXYGEN 09515-7.40 Diagnos ALEJA,F 02/20 [place] CONCENTRAT 5.51717106 is: RANK S ZAK ER OR ICD-10- [facility] G47.30 Sleep apnea, unspeci fied
with Provide r Comment s: Sleep Apnea, unspeci fied OFFICE O/P 19807-5.40 Diagnos WHITESEL,H 02/27 WHITE EST HI 5.84186299 is: EAT L RIVER 40-54 MIN ICD-10- [facility] 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<b r/>with Provide r Comment s: Foot ulcer due to type 2 diabete s mellitu s (SCT [id number]) OFFICE O/P 50580-1. Diagnos ELISE,PEN 02/27 WHITE EST 5.07174438 is: [place] MINIMAL ICD-10- [facility] PROB [facility] 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<b r/>with Provide r Comment s: Foot ulcer due to type 2 diabete s mellitu s ([facility] [id number]) Outpatient 05203-2.40 02/27 WHIT E Encounter [id number] [facility] Outpatient 42594-4.40 Diagnos SOHAIL,B 03/03 WHITE Encounter 5.74195407 is: REGINALDO RIVER ICD-10- K[facility]I [facility] 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<b r/>with Provide r Comment s: Foot ulcer due to type 2 diabete s mellitu s ([facility] [id number] 056413) Outpatient 40619-8.40 03/04 WHIT E Encounter [id number] [facility] Outpatient 93553-0.40 03/04 WHIT E Encounter [id number] /2021 [facility] Outpatient 16713-9.40 03/04 WHIT E Encounter [id number] /2021 [facility] Outpatient 01843-3.68 Diagnos ZAMBRANO,LA 03/04 CONNECT Encounter [id number] is: UREN /2021 [facility] ICD-10- [facility] CM I50.32 Chronic diastol ic (conges tive) heart failure
wi th Provide r Comment s: Chronic Diastol ic (Conges tive) Heart Failure Outpatient 92367-8.40 03/04 ST. Encounter [id number] [facility] Outpatient 18918-4.40 Diagnos WHITESEL,H 03/10 WHITE Encounter [id number] is: EATHER L RI JENNIFER ICD-10- [facility] R06.00 Dyspnea , unspeci fied
with Provide r Comment s: Dyspnea ([facility] [id number] 07) OFFICE O/P 17521-5 Diagnos ZAMBRANO,LA 03/10 CONNECT EST LOW 9.39875139 is: [facility] 20-29 MIN ICD-10- [facility] CM I50.32 Chronic diastol ic (conges tive) heart failure
wi Provide r Comment s: Chronic diastol ic (conges tive) heart failure Outpatient 34391-4 ZAMBRANO,LA 03/10 CONNECT Encounter [id number] [facility] OFFICE O/P 79533-740 Diagnos ZAMBRANO,LA 03/10 ST. EST LOW 5HC.385205 is: JOHNSBU 20-29 MIN 40 ICD-10- [facility] RY CBO C CM I50.33 Acute on chronic diastol ic (conges tive) heart failure
wi Provide r Comment s: Acute on Chronic Diastol ic (Conges tive) Heart Failure Outpatient Diagnos [facility], 03/11 WHITE Encounter 5.08441738 is: EATHER RI JENNIFER ICD-10- [facility] R60.0 Localiz ed edema<b r/>with Provide r Comment s: Localiz ed Edema Outpatient Diagnos [facility], 03/12 WHITE Encounter [id number] is: EATHER RI JENNIFER ICD-10- [place] CM [facility] R05.9 Cough, unspeci fied
with Provide r Comment s: Cough, unspeci fied Outpatient Diagnos [facility], 03/13 WHITE Encounter [id number] is: EATHER L RI JENNIFER ICD-10- [place] CM [facility] R53.83 Other fatigue
wi th Provide r Comment s: Other Fatigue Outpatient 03/17 WHIT E Encounter [id number] /2021 [place] [facility] Outpatient Diagnos [facility], 03/17 WHITE Encounter [id number] is: EATHER L RI JENNIFER ICD-10- [place] CM [facility] Z71.89 Other specifi ed spiritual counselor ing<br/ >with Provide r Comment s: Other specifi ed Portfolio Manager ing Outpatient 03/17 WHIT E Encounter [id number] [place] [facility] 68831-9.40 03/17 WHIT E Encounter [id number] /2021 [place] [facility] 53655-4.40 03/17 WHIT E Encounter [id number] /2021 [place] [facility] OFFICE O/P 34458-1.40 Diagnos WHITESEL,H 03/19 WHITE EST [place] [id number] is: EATHER L [place] 40-54 MIN ICD-10- J[place] CM [facility] 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<b r/>with Provide r Comment s: Foot ulcer due to type 2 diabete s mellitu s (SCT [id number]) Outpatient 90546-8.40 03/20 WHIT E Encounter [id number] /[facility] 55984-8.40 Diagnos TSAI,MARITZA 03/20 WHITE EST [id number] is: FRANCESCO L [place] MINIMAL ICD-10- [place] PROB CM [facility] Z01.818 Encount er for other preproc edural examina tion
with Provide r Comment s: Encount er for other Preproc edural Examina tion Outpatient 96724-1.40 03/21 WHIT E Encounter [id number] /2021 [place] [facility] TREAT FOOT 97446-5.40 Admit BANDARAGE, 03/21 04/10 Disch arge WHITE BONE [id number] Reason: DINETH from [facility] inpatient T ELITIS< treatment to [facility] C br/>[place] the Service gnosis: Connected ICD-10- (OPT-SC) CM rolls. S91.301 D Unspeci fied open wound, right foot, subsequ ent encount er
with Provide r Comment s: Unspeci fied open Wound, right Foot, Subsequ ent Encount er PARTIAL 57732-0.40 Admit BANDARAGE, 03/21 04/10 Discharg e WHITE AMPUTATION [id number] Reason: DINETH from [facility]E OSTEOMY HAMZ[facility] inpatient T ELITIS< treatment to [facility] C br/>[place]ira the Service gnosis: Connected ICD-10- (OPT-SC) CM rolls. 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<b r/>with Provide r Comment s: Foot ulcer due to type 2 diabete s mellitu s (SCT [id number]) AMPUTATION 42922-0.40 Diagnos WHITESEL,H 03/21 04/21 WHITE OF TOE [id number] is: KIMBERLY L /2021 [place] ICD-10- [place] CM [facility] S91.301 D Unspeci fied open wound, right foot, subsequ ent encount er
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 other specifi ed complic ation<b r/>with Provide r Comment s: Type 2 diabete s mellitu s with other specifi ed complic ation SPECIAL 82043-7.40 Diagnos PAPITO,ABIGAIL 03/21 04/21 WHITE ANESTHESIA 5.85276907 is: LAILA J /2021 [place] SERVICE ICD-10- [place] CM [facility] E11.69 Type 2 diabete s mellitu s with other specifi ed complic ation<b r/>with Provide r Comment s: Type 2 diabete s mellitu s with other specifi ed complic ation PARTIAL 39692-2.40 Diagnos WHITESEL,H 03/21 04/21 WHITE AMPUTATION 5.19764560 is: KIMBERLY L /2021 R IVER OF TOE ICD-10- [place] CM [facility] E11.69 Type 2 diabete s mellitu s with other specifi ed complic ation<b r/>with Provide r Comment s: Type 2 diabete s mellitu s with other specifi ed complic ation OXYGEN 77183-3.40 Diagnos ALEJA,F 03/21 04/03 [place] CONCENTRAT 5.22670950 is: RANK S /2021 [place] OR ICD-10- [place] CM [facility] G47.30 Sleep apnea, unspeci fied
with Provide r Comment s: Sleep Apnea, unspeci fied POSTOP 81681-5.40 Diagnos HENRY, 03/21 04/21 [place] N[place] FOLLOW-UP 5.76558845 is: SOPHIA /2021 [place] VISIT ICD-10- J[place] CM [facility] Z47.81 Encount er for orthope dic afterca re followi ng surgica l amp<br/ >with Provide r Comment s: Encount er for Orthope dic Afterca re Followi ng Surgica l Amputat ion Inpatient 46236-3.40 03/21 03/21 WHITE Encounter [id number] /2021 [place] [facility] SPECIAL 92322-7.40 Diagnos ABIGAIL COBOS 03/21 04/21 WHITE ANESTHESIA 5.83155889 is: LAILA J /2021 [place] SERVICE ICD-10- [place] CM [facility] E11.69 Type 2 diabete s mellitu s with other specifi ed complic ation<b r/>with Provide r Comment s: Type 2 Diabete s Mellitu s with other specifi ed Complic ation Inpatient 31000-3.40 03/21 03/21 WHITE Encounter [id number] /2021 [place] [facility] POSTOP 56341-7.40 Diagnos SALEEM,H 03/21 03/22 [place] N[place]OL[place] FOLLOW-UP 5.87587530 is: KIMBERLY L /2021 [place] VISIT ICD-10- [place] CM [facility] Z47.81 Encount er for orthope dic afterca re followi ng surgica l amp<br/ >with Provide r Comment s: Encount er for Orthope dic Afterca re Followi ng Surgica l Amputat ion Inpatient 10074-5.40 03/21 03/21 WHITE Encounter [id number] /2021 [place] [facility] Inpatient 08519-5.40 03/21 03/21 WHITE Encounter [id number] /2021 [place] [facility] Inpatient 61217-1.40 03/21 03/21 WHITE Encounter [id number] /2021 [place] [facility] Inpatient 88506-7.40 03/21 03/21 WHITE Encounter 5.69005101 /2021 [place] [facility] Inpatient 69698-6.40 03/21 03/21 WHITE Encounter [id number] /2021 [place] [facility] Inpatient 18740-4.40 03/21 03/21 WHITE Encounter [id number] /2021 [place] [facility] Inpatient 87251-3.40 03/21 03/21 WHITE Encounter [id number] /2021 [place] [facility] Inpatient 03561-3.40 03/22 03/22 WHITE Encounter [id number] /2021 [place] [facility] Inpatient 74092-3.40 03/22 03/22 WHITE Encounter 5.89321760 /2021 [place] [facility] Inpatient 83720-9.40 03/22 03/22 WHITE Encounter [id number] /2021 [place] [facility] POS AIRWAY 38730-6.40 Diagnos GARCIA,NA 03/22 03/22 WHITE PRESSURE 5.95231180 is: DOMINIC Gary /2021 [place] CPAP ICD-10- [place] CM [facility] G47.37 Central sleep apnea in conditi ons classif ied elsewhe re
with Provide r Comment s: Obstruc tive sleep apnea syndrom e (SCT [id number] 9) POSTOP 85333-5.40 Diagnos WHITTEMORE, 03/22 04/21 W NICOLA FOLLOW-UP 5.44022360 is: SOPHIA /2021 [place] VISIT ICD-10- J[place] CM [facility] Z47.81 Encount er for orthope dic afterca re followi ng surgica l amp<br/ >with Provide r Comment s: Encount er for orthope dic afterca re followi ng surgica l amp Inpatient 50481-5.40 03/22 03/22 WHITE Encounter [id number] /[facility] 26512-7.40 Diagnos [place] 03/22 03/22 [place] N[place]OLA FOLLOW-UP 5.97463639 is: FAITH Romero /2021 [place] VISIT ICD-10- E [facility] Z47.81 Encount er for orthope dic afterca re followi ng surgica l amp<br/ >with Provide r Comment s: Encount er for Orthope dic Afterca re Followi ng Surgica l Amputat ion Inpatient 97405-5.40 03/22 03/22 WHITE Encounter [id number] /2021 [place] [facility] Inpatient 76772-1.40 03/22 03/22 WHITE Encounter [id number] /2021 [place] [facility] Inpatient 79037-1.40 03/22 03/22 WHITE Encounter 5.74410346 /2021 [place] [facility] Inpatient 71894-9.40 03/22 03/22 WHITE Encounter [id number] /2021 [place] [facility] Inpatient 88210-4.40 03/22 03/22 WHITE Encounter [id number] /2021 [place] [facility] Inpatient 94721-8.40 03/22 03/22 WHITE Encounter [id number] /2021 [place] [facility] Inpatient 20755-4.40 03/22 03/22 WHITE Encounter [id number] /2021 [place] [facility] Inpatient 78462-5.40 03/23 03/23 WHITE Encounter [id number] /2021 [place] [facility] POS AIRWAY 01690-1.40 Diagnos GARCIA,NA 03/23 03/23 WHITE PRESSURE 5.82484865 is: DOMINIC J /2021 [place] R CPAP ICD-10- [place] CM [facility] G47.31 Primary central sleep apnea<b r/>with Provide r Comment s: Central sleep apnea (SCT [id number] 5) Inpatient 47642-2.40 03/23 03/23 WHITE Encounter 5.32214702 /2021 [place] [facility] Inpatient 90072-1.40 03/23 03/23 WHITE Encounter [id number] /2021 [place] [facility] Inpatient 83343-7.40 03/23 03/23 WHITE Encounter [id number] /2021 [place] [facility] Inpatient 77754-3.40 03/23 03/23 WHITE Encounter [id number] /2021 [place] [facility] Inpatient 27773-2.40 03/23 03/23 WHITE Encounter [id number] /2021 [place] [facility] Inpatient 06330-7.40 03/23 03/23 WHITE Encounter 5.38880363 /2021 [place] [facility] POSTOP 61035-1.40 Diagnos [place] 03/23 03/23 W NICOLA FOLLOW-UP 5.66386712 is: FAITH Romero /2021 [place] VISIT ICD-10- E [facility] Z47.81 Encount er for orthope dic afterca re followi ng surgica l amp<br/ >with Provide r Comment s: Encount er for orthope dic afterca re followi ng surgica l amp Inpatient 47843-6.40 03/23 03/23 WHITE Encounter [id number] /2021 [place] [facility] Inpatient 37364-0.40 03/23 03/23 WHITE Encounter [id number] /2021 [place] [facility] Inpatient 93643-3.40 03/23 03/23 WHITE Encounter [id number] /2021 [place] [facility] Inpatient 02197-8.40 03/23 03/23 WHITE Encounter [id number] /2021 [place] [facility] POSTOP 76319-9.40 Diagnos WHITESEL,H 03/23 03/23 [place] N[place]OLA FOLLOW-UP 5.14789982 is: KIMBERLY L /2021 [place] VISIT ICD-10- [place] CM [facility] L76.32 Postpro c hematom a of skin, subcu followi ng other procedu re
with Provide r Comment s: Postpro cedural hematom a of skin and subcuta neous tissue followi ng other procedu re Inpatient 21141-3.40 03/24 03/24 WHITE Encounter [id number] /2021 [place] [facility] Inpatient 11155-9.40 03/24 03/24 WHITE Encounter [id number] /2021 [place] [facility] POS AIRWAY 37459-7.40 Diagnos RADHA,NA 03/24 03/24 WHITE PRESSURE 5.84611419 is: DOMINIC J /2021 [place] CPAP ICD-10- [place] CM [facility] G47.37 Central sleep apnea in conditi ons classif ied elsewhe re
with Provide r Comment s: Obstruc tive sleep apnea syndrom e (SCT [id number] 9) POSTOP 02154-0.40 Diagnos [place] 03/24 03/24 W NICOLA FOLLOW-UP 5.31947147 is: FAITH Romero /2021 [place] VISIT ICD-10- E [place] [facility] Z47.81 Encount er for orthope dic afterca re followi ng surgica l amp<br/ >with Provide r Comment s: Encount er for Orthope dic Afterca re Followi ng Surgica l Amputat ion Inpatient 88528-7.40 03/24 03/24 WHITE Encounter [id number] /2021 [place] [facility] Inpatient 70931-6.40 03/24 03/24 WHITE Encounter [id number] /2021 [place] [facility] Inpatient 98858-9.40 03/24 03/24 WHITE Encounter [id number] /2021 [place] [facility] Inpatient 35022-1.40 03/24 03/24 WHITE Encounter [id number] /2021 [place] [facility] Inpatient 29965-1.40 03/24 03/24 WHITE Encounter [id number] /2021 [place] [facility] Inpatient 95125-8.40 03/24 03/24 WHITE Encounter [id number] /2021 [place] [facility] Inpatient 23597-6.40 03/24 03/24 WHITE Encounter [id number] /2021 [place] [facility] Inpatient 76026-9.40 03/25 03/25 WHITE Encounter [id number] /2021 [place] [facility] Inpatient 42470-4.40 03/25 03/25 WHITE Encounter [id number] /2021 [place] [facility] Inpatient 80060-0.40 03/25 03/25 WHITE Encounter [id number] /2021 [place] [facility] POSTOP 25460-3.40 Diagnos [place] 03/25 03/25 W NICOLA FOLLOW-UP 5.03122305 is: NFAITH /2021 [place] VISIT ICD-10- E [facility] 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<b r/>with Provide r Comment s: Foot ulcer due to type 2 diabete s mellitu s (SCT [id number]) Inpatient 69765-6.40 03/25 03/25 WHITE Encounter [id number] /2021 [place] [facility] Inpatient 62884-7.40 03/25 03/25 WHITE Encounter [id number] /2021 [place] [facility] Inpatient 85047-9.40 03/25 03/25 WHITE Encounter [id number] /2021 [place] [facility] Inpatient 19035-0.40 WHITESEL,H 03/25 03/25 WHITE Encounter [id number] EATHER L /2021 [place] J[place]IFER [facility] Inpatient 95203-6.40 03/25 03/25 WHITE Encounter [id number] /2021 [place] [facility] Inpatient 18531-9.40 03/25 03/25 WHITE Encounter [id number] /2021 [place] [facility] Inpatient 57935-3.40 03/25 03/25 WHITE Encounter [id number] /2021 [place] [facility] Inpatient 51955-4.40 03/25 03/25 WHITE Encounter [id number] /2021 [place] [facility] Inpatient 07285-4.40 03/26 03/26 WHITE Encounter [id number] /20[place] [facility] Inpatient 75826-1.40 03/26 03/26 WHITE Encounter [id number] /2021 [place] [facility] Inpatient 01583-7.40 03/26 03/26 WHITE Encounter [id number] /2021 [place] [facility] Inpatient 18969-7.40 Diagnos WHITESDIANA,H 03/26 04/18 WHITE Encounter [id number] is: EATHER L /2021 [place] ICD-10- [place] CM [facility] L03.115 Celluli tis of right lower limb
with Provide r Comment s: Celluli tis of right lower limb SPECIAL 41891-3.40 Diagnos BRIANNA BANKS 03/26 04/21 WHITE ANESTHESIA 5.34992728 is: W L /2021 [place] R SERVICE ICD-10- [place] CM [facility] E11.69 Type 2 diabete s mellitu s with other specifi ed complic ation<b r/>with Provide r Comment s: Type 2 diabete s mellitu s with other specifi ed complic ation SPECIAL 55315-1.40 Diagnos PIERO,S 03/26 04/21 WHITE ANESTHESIA 5.65928599 is: OPHIE C /2021 [place] J[place] SERVICE ICD-10- [place] CM [facility] E11.69 Type 2 diabete s mellitu s with other specifi ed complic ation<b r/>with Provide r Comment s: Type 2 diabete s mellitu s with other specifi ed complic ation Inpatient 75790-8.40 03/26 03/26 WHITE Encounter [id number] /2021 [place] [facility] ANES UPR 07415-1.40 Diagnos PIERO,S 03/26 04/21 WHITE GI NDSC PX 5.40297439 is: OPHIE C /2021 [place] NOS ICD-10- [place] CM [facility] E11.69 Type 2 diabete s mellitu s with other specifi ed complic ation<b r/>with Provide r Comment s: Type 2 Diabete s Mellitu s with other specifi ed Complic ation Inpatient 24858-3.40 03/26 03/26 WHITE Encounter [id number] /2021 [place] [facility] POSTOP 53488-2.40 Diagnos Ephraim MONGE 03/26 04/21 W NICOLA FOLLOW-UP 5.10882307 is: KIMBERLY L /2021 [place] VISIT ICD-10- [place] [facility] Z47.81 Encount er for orthope dic afterca re followi ng surgica l amp<br/ >with Provide r Comment s: Encount er for orthope dic afterca re followi ng surgica l amp Inpatient 82562-4.40 03/26 03/26 WHITE Encounter [id number] /2021 [place] [facility] Inpatient 46868-3.40 03/26 03/26 WHITE Encounter [id number] /2021 [place] [facility] Inpatient 71866-6.40 03/26 03/26 WHITE Encounter [id number] /2021 [place] [facility] POSTOP 57010-3.40 Diagnos Ephraim MONGE 03/26 03/27 W NICOLA FOLLOW-UP 5.85694316 is: KIMBERLY L /2021 [place] VISIT ICD-10- [place] [facility] Z47.81 Encount er for orthope dic afterca re followi ng surgica l amp<br/ >with Provide r Comment s: Encount er for Orthope dic Afterca re Followi ng Surgica l Amputat ion Inpatient 11564-5.40 03/26 03/26 WHITE Encounter 5.97179011 /2021 [place] [facility] Inpatient 91263-3.40 03/26 03/26 WHITE Encounter [id number] /2021 [place] [facility] Inpatient 31392-0.40 03/26 03/26 WHITE Encounter [id number] /2021 [place] [facility] Inpatient 15155-7.40 03/27 03/27 WHITE Encounter [id number] /2021 [place] [facility] Inpatient 21442-9.40 03/27 03/27 WHITE Encounter [id number] /2021 [facility] Inpatient 91990-7.40 03/27 06/ WHITE Encounter [id number] /2021 [facility] Inpatient 05232-8.40 03/27 03/27 WHITE Encounter [id number] /2021 [facility] Inpatient 73682-2.40 03/27 06/ WHITE Encounter [id number] /2021 [facility] OFFICE O/P 71701-2.40 Diagnos BALUK,DANIELLE 03/27 03/28 WHITE EST MOD 5.01181191 is: CHANELL A /2021 [place] 30-39 MIN ICD-10- [place] [facility] 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<b r/>with Provide r Comment s: Foot ulcer due to type 2 diabete s mellitu s (SCT [id number]) Inpatient 83095-7.40 03/27 03/27 WHITE Encounter [id number] /2021 [facility] Inpatient 29295-9.40 03/27 03/27 WHITE Encounter [id number] /2021 [facility] Inpatient 31424-2.40 03/27 03/27 WHITE Encounter [id number] /2021 [facility] POSTOP 80156-2.40 Diagnos SALEEM,H 03/27 03/28 W N[place]OLA FOLLOW-UP 5.45020435 is: EATHER L /2021 [place] VISIT ICD-10- [place] [facility] Z47.81 Encount er for orthope dic afterca re followi ng surgica l amp<br/ >with Provide r Comment s: Encount er for Orthope dic Afterca re Followi ng Surgica l Amputat ion Inpatient 96774-6.40 03/27 03/27 WHITE Encounter [id number] /2021 [facility] Inpatient 57011-2.40 03/27 03/27 WHITE Encounter [id number] /2021 [facility] EVALUATE 13249-5.40 Diagnos MARIEG 03/27 03/27 WHITE PT USE OF 5.55454275 is: EORGE /2021 [place] INHALER ICD-10- EFRAIN [facility] CM VAMROC J44.9 Chronic obstruc tive pulmona ry disease , unspeci fied
with Provide r Comment s: COPD ([facility] [id number] 5) Inpatient 25143-4.40 03/27 03/27 WHITE Encounter [id number] /2021 [place] [facility] Inpatient 84378-1.40 03/27 03/27 WHITE Encounter [id number] /2021 [place] [facility] Inpatient 55439-1.40 03/27 03/27 WHITE Encounter [id number] /2021 [place] [facility] AIRWAY 98180-5.40 Diagnos HILTONLIZZ 03/27 03/28 [place] INHALATION 5.25277398 is: TOMMY /2021 [place] R TREATMENT ICD-10- [facility] CM NVMROC J44.9 Chronic obstruc tive pulmona ry disease , unspeci fied
with Provide r Comment s: COPD ([facility] [id number] 5) Inpatient 59009-9.40 03/28 03/28 WHITE Encounter [id number] /2021 [place] [facility] Inpatient 49518-1.40 03/28 03/28 WHITE Encounter [id number] /2021 [place] [facility] Inpatient 54634-5.40 03/28 03/28 WHITE Encounter [id number] /2021 [place] [facility] Inpatient 29471-9.40 03/28 03/28 WHITE Encounter [id number] /2021 [place] [facility] THERAPEUTI 86989-4.40 Diagnos CALLES,ALISSA 03/28 03/28 WHITE C 5.72014588 is: AN B /2021 [place] ACTIVITIES ICD-10- T [facility] 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<b r/>with Provide r Comment s: Foot ulcer due to type 2 diabete s mellitu s (SCT [id number] 348618) POSTOP 17024-1.40 Diagnos [place] 03/28 03/28 W NICOLA FOLLOW-UP 5.13745975 is: NFAITH /2021 [place] VISIT ICD-10- E [place] [facility] Z47.81 Encount er for orthope dic afterca re followi ng surgica l amp<br/ >with Provide r Comment s: Encount er for orthope dic afterca re followi ng surgica l amp EVALUATE 59783-4.40 Diagnos ERIN 03/28 03/28 WHITE PT USE OF 5.67278976 is: ,IVETT /2021 [place] INHALER ICD-10- [place] [facility] R06.02 Shortne ss of breath< br/>wit h Provide r Comment s: Shortne ss of breath (SCT [id number] 07) Inpatient 87763-1.40 03/28 03/28 WHITE Encounter [id number] /2021 [place] [facility] SELF CARE 88889-9.40 Diagnos DANIELLE HATCH 03/28 03/31 WHITE MNGMENT 5.21617092 is: CHANELL A /2021 [place] TRAINING ICD-10- [place] [facility] L03.115 Celluli tis of right lower limb
with Provide r Comment s: Celluli tis of right lower limb (SCT [id number] 104) Inpatient 42721-8.40 03/28 03/28 WHITE Encounter [id number] /2021 [place] [facility] Inpatient 84952-6.40 03/28 03/28 WHITE Encounter [id number] /2021 [place] [facility] Inpatient 99282-1.40 03/28 03/28 WHITE Encounter [id number] /2021 [place] [facility] Inpatient 03887-3.40 03/28 03/28 WHITE Encounter [id number] /2021 [place] [facility] Inpatient 75216-4.40 03/28 03/28 WHITE Encounter [id number] /2021 [place] [facility] Inpatient 11003-2.40 03/28 03/28 WHITE Encounter [id number] /2021 [place] [facility] Inpatient 86485-7.40 03/28 03/28 WHITE Encounter [id number] /2021 [place] [facility] Inpatient 54625-3.40 03/28 03/28 WHITE Encounter [id number] /2021 [place] [facility] EVALUATE 26195-3.40 Diagnos Mustapha SALAZAR 03/28 03/29 WHITE PT USE OF 5.36386897 is: EORGE /2021 [place] INHALER ICD-10- EFRAIN T CM [facility] J44.9 Chronic obstruc tive pulmona ry disease , unspeci fied
with Provide r Comment s: COPD (SCT [id number] 5) Inpatient 82559-2.40 03/28 03/28 WHITE Encounter [id number] /2021 [place] [facility] Inpatient 46255-1.40 03/29 03/29 WHITE Encounter [id number] /2021 [place] [facility] Inpatient 28875-3.40 03/29 03/29 WHITE Encounter [id number] /2021 [place] [facility] Inpatient 38933-8.40 03/29 06/04 WHITE Encounter [id number] /2021 [place] [facility] Inpatient 67439-2.40 03/29 06/ [id number] [facility]OP 05540-3.40 Diagnos SALEEM,H 03/29 03/29 [place] N[place]OLA FOLLOW-UP 5.58574137 is: EATHER L /2021 [place] VISIT ICD-10- [place] [facility] Z47.81 Encount er for orthope dic afterca re followi ng surgica l amp<br/ >with Provide r Comment s: Encount er for orthope dic afterca re followi ng surgica l amp Inpatient 92894-1.40 03/29 03/29 WHITE Encounter [id number] /2021 [place] [facility] Inpatient 06829-9.40 03/29 06/04 WHITE Encounter [id number] /2021 [place] [facility] Inpatient 42123-8.40 06/04 06/04 WHITE Encounter [id number] /2021 [place] [facility] PULMONARY 69027-6.40 Diagnos SKSABIRONSKI 06/ WHITE SERVICE/[place] 5.48145636 is: ,IVETT /2021 [place] PARRY ICD-10- T [facility] R06.02 Shortne ss of breath< br/>wit h Provide r Comment s: Shortne ss of breath (SCT [id number] 07) Inpatient 87153-5.40 06/ 06/04 WHITE Encounter [id number] /2021 [place] [facility] Inpatient 57867-9.40 06/ WHITE Encounter [id number] /2021 [facility] Inpatient 82868-7.40 03/29 06/ WHITE Encounter [id number] /2021 [place] [facility] Inpatient 77338-1.40 03/29 06/04 WHITE Encounter [id number] /2021 [facility] Inpatient 39371-7.40 06/01 29/04 WHITE Encounter [id number] /2021 [facility] Inpatient 68064-4.40 06/ 06/04 WHITE Encounter [id number] /2021 [facility] Inpatient 99789-5.40 03/29 06/04 WHITE Encounter [id number] /2021 [facility] Inpatient 40921-4.40 03/30 06/05 WHITE Encounter [id number] /2021 [facility] Inpatient 93688-8.40 03/30 06/ WHITE Encounter [id number] /2021 [facility] Inpatient 60170-3.40 03/30 06/ WHITE Encounter [id number] /2021 [facility] Inpatient 82123-9.40 03/30 03/30 WHITE Encounter [id number] /2021 [facility] EVALUATE 41753-0.40 Diagnos Mustapha SALAZAR 03/30 03/30 WHITE PT USE OF 5.06527707 is: EORGE /2021 [place] INHALER ICD-10- EFRAIN T [facility] J44.9 Chronic obstruc tive pulmona ry disease , unspeci fied
with Provide r Comment s: COPD (SCT [id number] 5) Inpatient 42957-4.40 03/30 03/30 WHITE Encounter [id number] /2021 [place] [facility] Inpatient 56942-8.40 03/30 03/30 WHITE Encounter [id number] /20[place] [facility] Inpatient 15050-6.40 03/30 03/30 WHITE Encounter [id number] /2021 [place] [facility] POSTOP 57636-6.40 Diagnos SALEEM,H 03/30 03/30 W NICOLA FOLLOW-UP 5.69030573 is: KIMBERLY L /2021 [place] VISIT ICD-10- T CM VAMROC Z47.81 Encount er for orthope dic afterca re followi ng surgica l amp<br/ >with Provide r Comment s: Encount er for orthope dic afterca re followi ng surgica l amp Inpatient 48283-8.40 03/30 03/30 WHITE Encounter [id number] /2021 [place] [facility] PULMONARY 94649-1.40 Diagnos [place]I 03/30 03/30 WHITE SERVICE/[place] [id number] is: IVETT /2021 [place] OCEDURE ICD-10- T CM VAMROC J44.9 Chronic obstruc tive pulmona ry disease , unspeci fied
with Provide r Comment s: COPD (SCT [id number] 5) Inpatient 41221-1.40 03/30 03/30 WHITE Encounter [id number] /2021 [place] [facility] Inpatient 30617-6.40 03/30 03/30 WHITE Encounter [id number] /2021 [place] [facility] Inpatient 51874-3.40 03/30 03/30 WHITE Encounter [id number] /2021 [facility] [facility] Inpatient 68325-8.40 06/ 06/05 WHITE Encounter [id number] /2021 [facility] Inpatient 96827-3.40 06/05 06/05 WHITE Encounter [id number] /2021 [facility] Inpatient 50564-6.40 06/ 06/05 WHITE Encounter [id number] /2021 [facility] Inpatient 34972-2.40 06/ 06/05 WHITE Encounter [id number] /2021 [facility] Inpatient 07317-4.40 06 06/06 WHITE Encounter [id number] /2021 [facility] Inpatient 10504-7.40 03/31 03/31 WHITE Encounter [id number] /2021 [facility] Inpatient 24011-8.40 03/31 06 WHITE Encounter [id number] /2021 [facility] Inpatient 32901-3.40 03/31 03/31 WHITE Encounter [id number] /2021 [facility] Inpatient 44856-7.40 03/31 03/31 WHITE Encounter [id number] /2021 [facility] Inpatient 38677-7.40 03/31 03/31 WHITE Encounter [id number] /2021 [facility] POSTOP 01620-5.40 Diagnos Ephraim MONGE 03/31 03/31 [place] FOLLOW-UP [id number] is: KIMBERLY L /2021 [place]ENN[place] VISIT ICD-10- [place] CM VAMROC Z47.81 Encount er for orthope dic afterca re followi ng surgica l amp<br/ >with Provide r Comment s: Encount er for orthope dic afterca re followi ng surgica l amp AIRWAY 97694-7.40 Diagnos LIZZ HILTON 03/31 03/31 [place] INHALATION [id number] is: TOMMY /2021 [place] TREATMENT ICD-10- [place] CM VAMROC J44.9 Chronic obstruc tive pulmona ry disease , unspeci fied
with Provide r Comment s: COPD ([facility] [id number] 5) Inpatient 16091-0.40 03/31 03/31 WHITE Encounter [id number] /2021 [facility] Inpatient 06802-3.40 03/31 03/31 WHITE Encounter [id number] /2021 [facility] Inpatient 94650-9.40 03/31 03/31 WHITE Encounter [id number] /2021 [facility] Inpatient 85271-0.40 03/31 03/31 WHITE Encounter [id number] /2021 [facility] THER[facility] 81522-7.40 Diagnos CALLES,ALISSA 03/31 03/31 WHITE C [id number] is: AN B /2021 [place] EXERCISES ICD-10- T CM VAMROC 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
with Provide r Comment s: COPD ([facility] [id number] 5) [place] [address]-3.40 Diagnos ROVELSKY,S 03/31 03/31 WHITE PHARM EST 5.49619957 is: UZETTE A /2021 RI JENNIFER 15 MIN ICD-10- JCT CM [facility] L03.115 Celluli tis of right lower limb
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<b r/>with Provide r Comment s: Foot ulcer due to type 2 diabete s mellitu s ([facility] [id number]) Inpatient 54745-7.40 03/31 03/31 WHITE Encounter [id number] /2021 [facility] Inpatient 72638-6.40 03/31 03/31 WHITE Encounter 5.84892496 /2021 [facility] Inpatient 81269-2.40 03/31 03/31 WHITE Encounter [id number] /2021 [facility] AIRWAY 69020-9.40 Diagnos PENN,CARRIE 03/31 04/21 [place] INHALATION 5.80355387 is: ERT KRISTIAN /2021 [facility] TREATMENT ICD-10- [facility] J44.9 Chronic obstruc tive pulmona ry disease , unspeci fied
with Provide r Comment s: COPD ([facility] [id number] 5) Inpatient 96928-3.40 03/31 03/31 WHITE Encounter [id number] /2021 [facility] Inpatient 83800-1.40 03/31 03/31 WHITE Encounter 5.40294213 /2021 [facility] Inpatient 33894-0.40 03/31 03/31 WHITE Encounter [id number] /2021 [facility] Inpatient 39252-9.40 03/31 03/31 WHITE Encounter [id number] /2021 [facility] Inpatient 78339-5.40 04/01 04/01 WHITE Encounter [id number] /2021 [facility] Inpatient 26141-8.40 04/01 04/01 WHITE Encounter [id number] /2021 [facility] Inpatient 02967-2.40 04/01 06/ WHITE Encounter [id number] /2021 [facility] Inpatient 37663-4.40 04/01 04/01 WHITE Encounter 5.63927385 /2021 [facility] AIRWAY 50685-1.40 Diagnos LIZZ HILTON 04/01 04/01 [place] INHALATION 5.12937920 is: TOMMY /2021 RIVE R TREATMENT ICD-10- T CM [facility] J44.9 Chronic obstruc tive pulmona ry disease , unspeci fied
with Provide r Comment s: COPD (SCT [id number] 5) Inpatient 60032-5.40 04/01 04/01 WHITE Encounter [id number] /2021 [facility] Inpatient 16635-0.40 04/01 04/01 WHITE Encounter 5.25816252 /2021 [facility] POSTOP 78750-6.40 Diagnos WHITESDIANA,H 04/01 04/21 [place] FOLLOW-UP 5.51580522 is: EATHER L /2021 [place] JENNIFER VISIT ICD-10- T CM [facility] Z47.81 Encount er for orthope dic afterca re followi ng surgica l amp<br/ >with Provide r Comment s: Encount er for orthope dic afterca re followi ng surgica l amp AIRWAY 50460-5.40 Diagnos CHRISTOFFE 04/01 04/01 [place] INHALATION 5.89571815 is: RS,TERRY R /2021 [facility] TREATMENT ICD-10- JCT CM [facility] J44.9 Chronic obstruc tive pulmona ry disease , unspeci fied
with Provide r Comment s: COPD (SCT [id number] 5) Inpatient 07971-1.40 04/01 04/01 WHITE Encounter [id number] /2021 [facility] Inpatient 18795-8.40 04/01 04/01 [id number] [facility] 04530-8.40 06/ 06/07 WHITE Encounter [id number] /2021 [facility] Inpatient 77054-2.40 /04 30/07 WHITE Encounter [id number] /2021 [facility] Inpatient 76185-1.40 06/04 30/07 WHITE Encounter [id number] /2021 [facility] AIRWAY 10343-3.40 Diagnos CARRIE PENN 04/01 04/01 [place] INHALATION 5.54156333 is: ERT KRISTIAN /2021 [place] TREATMENT ICD-10- JCT CM [facility] J44.9 Chronic obstruc tive pulmona ry disease , unspeci fied
with Provide r Comment s: COPD (SCT [id number] 5) Inpatient 33257-0.40 04/01 06/ WHITE Encounter [id number] /2021 [facility] Inpatient 08140-0.40 04/01 06/ WHITE Encounter 5.70004341 /2021 [facility] POSTOP 98266-0.40 Diagnos WHITESDIANA,H 04/01 04/01 [place] FOLLOW-UP 5.96284768 is: EATHER L /2021 [place] JENNIFER VISIT ICD-10- JCT CM [facility] Z47.81 Encount er for orthope dic afterca re followi ng surgica l amp<br/ >with Provide r Comment s: Encount er for orthope dic afterca re followi ng surgica l amp Inpatient 97996-2.40 04/02 04/02 WHITE Encounter [id number] /2021 [facility] Inpatient 58247-3.40 04/02 06/08 WHITE Encounter [id number] /2021 [facility] Inpatient 59362-2.40 04/02 06/ WHITE Encounter [id number] /2021 [facility] AIRWAY 73123-3.40 Diagnos LIZZ HILTON 04/02 04/02 [place] N[place] INHALATION 5.90256326 is: TOMMY /2021 RIVE R TREATMENT ICD-10- JCT CM [facility] J44.9 Chronic obstruc tive pulmona ry disease , unspeci fied
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
with Provide r Comment s: COPD (SCT [id number] 5) Inpatient 72430-3.40 04/02 04/02 WHITE Encounter [id number] /2021 [place] [facility] POSTOP 99936-6.40 Diagnos LAUDATE,JA 04/02 04/21 [place] FOLLOW-UP 5.16628558 is: MES /2021 [facility] VISIT ICD-10- JCT CM [facility] Z47.81 Encount er for orthope dic afterca re followi ng surgica l amp<br/ >with Provide r Comment s: Encount er for orthope dic afterca re followi ng surgica l amp AIRWAY 88576-5.40 Diagnos PENN,CARRIE 06/08 06/08 [place] INHALATION 5.47166987 is: ERT KRISTIAN /2021 R[place] TREATMENT ICD-10- JCT CM [facility] J44.9 Chronic obstruc tive pulmona ry disease , unspeci fied
with Provide r Comment s: COPD (SCT [id number] 5) Inpatient 41144-2.40 06/ 06/08 WHITE Encounter [id number] /2021 [facility] Inpatient 16747-0.40 06/ 06/08 WHITE Encounter [id number] /2021 [facility] Inpatient 92427-0.40 06/ 06/08 WHITE Encounter [id number] /2021 [facility] Inpatient 20887-3.40 06/ 06/08 WHITE Encounter [id number] /2021 [facility] Inpatient 26096-1.40 / 06/09 WHITE Encounter [id number] /2021 [facility] Inpatient 91450-3.40 04/03 06/09 WHITE Encounter [id number] /2021 [facility] Inpatient 51847-8.40 04/03 06/09 WHITE Encounter [id number] /2021 [facility] AIRWAY 94241-0.40 Diagnos LIZZ HILTON 04/03 04/03 [place] N[place] INHALATION 5.18178620 is: TOMMY /2021 RIVE R TREATMENT ICD-10- JCT CM [facility] J44.9 Chronic obstruc tive pulmona ry disease , unspeci fied
with Provide r Comment s: COPD (SCT [id number] 5) Inpatient 32547-3.40 04/03 04/03 WHITE Encounter [id number] /2021 [facility] POSTOP 59076-4.40 Diagnos SALEEM,Ephraim 04/03 04/03 [place] N[place] FOLLOW-UP 5.05565425 is: EATHER L /2021 [place] JENNIFER VISIT ICD-10- JCT CM [facility] Z47.81 Encount er for orthope dic afterca re followi ng surgica l amp<br/ >with Provide r Comment s: Encount er for orthope dic afterca re followi ng surgica l amp Inpatient 30207-0.40 04/03 04/03 WHITE Encounter [id number] /2021 [facility] [facility] [place] [address]-8.40 Diagnos EVER,S 04/03 04/03 WHITE PHARM EST 5.63474872 is: UZETTGaetano A /2021 RI JENNIFER 15 MIN ICD-10- JCT CM [facility] 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<b r/>with Provide r Comment s: Foot ulcer due to type 2 diabete s mellitu s (SCT [id number]) Inpatient 35285-1.40 04/03 04/03 WHITE Encounter [id number] /2021 [facility] Inpatient 38362-4.40 04/03 04/03 WHITE Encounter [id number] /2021 [facility] Inpatient 83811-8.40 04/03 04/03 WHITE Encounter [id number] /2021 [facility] Inpatient 29929-2.40 04/03 04/03 WHITE Encounter [id number] /2021 [facility] AIRWAY 10758-7.40 Diagnos CARRIE PENN 04/03 04/03 W N[place] INHALATION 5.73802093 is: ERT KRISTIAN /2021 [facility] TREATMENT ICD-10- JCT CM [facility] J44.9 Chronic obstruc tive pulmona ry disease , unspeci fied
with Provide r Comment s: COPD (SCT [id number] 5) Inpatient 01498-6.40 04/03 04/03 WHITE Encounter [id number] /2021 [facility] Inpatient 79689-3.40 04/03 04/03 WHITE Encounter [id number] /2021 [facility] Inpatient 11977-7.40 04/03 04/03 WHITE Encounter [id number] /2021 [facility] Inpatient 91740-7.40 04/04 04/04 WHITE Encounter [id number] /[facility] Inpatient 37103-8.40 04/04 04/04 WHITE Encounter [id number] /2021 [facility] Inpatient 22458-7.40 04/04 04/04 WHITE Encounter [id number] /2021 [facility] Inpatient 38770-6.40 04/04 04/04 WHITE Encounter [id number] /2021 [facility] Inpatient 11406-5.40 04/04 04/04 WHITE Encounter [id number] /2021 [facility] POSTOP 25887-1.40 Diagnos WHITESEL,H 04/04 04/04 [place] FOLLOW-UP 5.31437781 is: EATHER L /2021 [place] JENNIFER VISIT ICD-10- JCT CM [facility] Z47.81 Encount er for orthope dic afterca re followi ng surgica l amp<br/ >with Provide r Comment s: Encount er for orthope dic afterca re followi ng surgica l amp AIRWAY 92429-1.40 Diagnos LIZZ HILTON 04/04 04/04 [place] INHALATION 5.01482523 is: TOMMY /2021 RIVE R TREATMENT ICD-10- JCT CM [facility] J44.9 Chronic obstruc tive pulmona ry disease , unspeci fied
with Provide r Comment s: COPD (SCT [id number] 5) Inpatient 06574-4.40 04/04 04/04 WHITE Encounter [id number] /2021 [facility] Inpatient 08256-8.40 04/04 04/04 WHITE Encounter [id number] /2021 [facility] Inpatient 15591-9.40 04/04 04/04 WHITE Encounter [id number] /2021 [facility] AIR[facility]AY 46180-5.40 Diagnos CHRISTOFFE 04/04 04/06 [place] INHALATION 5.36401619 is: RS,TERRY R /2021 [facility] TREATMENT ICD-10- JCT CM [facility] J44.9 Chronic obstruc tive pulmona ry disease , unspeci fied
with Provide r Comment s: COPD (SCT [id number] 5) Inpatient 57623-9.40 04/04 04/04 WHITE Encounter [id number] /2021 [facility] Inpatient 31645-9.40 04/04 04/04 WHITE Encounter [id number] /2021 [facility] Inpatient 16396-8.40 04/04 04/04 WHITE Encounter [id number] /2021 [facility] Inpatient 36123-7.40 04/04 04/04 WHITE Encounter [id number] /2021 [facility] AIRWAY 55920-5.40 Diagnos PENN,CARRIE 04/04 04/04 [place] N[place] INHALATION 5.94124388 is: ERT KRISTIAN /2021 [facility] TREATMENT [facility]10[facility] J[facility].9 Chronic obstruc tive pulmona ry disease , unspeci fied
with Provide r Comment s: COPD (SCT [id number] 5) Inpatient 92055-7.40 04/04 04/04 WHITE Encounter [id number] /2021 [facility] Inpatient 82500-1.40 04/04 04/04 WHITE Encounter [id number] /2021 [facility] Inpatient 20631-5.40 04/04 04/04 WHITE Encounter [id number] /2021 [facility] Inpatient 82999-3.40 04/04 04/04 WHITE Encounter [id number] /2021 [facility] EVALUATE 17362-9.40 Diagnos GARCIA,NA 04/05 04/05 WHITE PT USE OF 5.24013998 is: DOMINIC Gary /2021 Z[place] ER INHALER ICD-10- [facility] J[facility].9 Chronic obstruc tive pulmona ry disease , unspeci fied
with Provide r Comment s: COPD (SCT [id number] 5) Inpatient 53554-9.40 04/05 04/05 WHITE Encounter [id number] /2021 [facility] Inpatient 53309-3.40 04/05 04/05 WHITE Encounter [id number] /2021 [facility] Inpatient 99331-2.40 04/05 04/05 WHITE Encounter [id number] /2021 [facility] Inpatient 70587-3.40 04/05 04/05 WHITE Encounter [id number] /2021 [facility] EVALUATE 01553-8.40 Diagnos GARCIA,NA 04/05 04/05 WHITE PT USE OF 5.95918477 is: DOMINIC J /2021 Z[place] INHALER ICD-10- JCT CM [facility] J44.9 Chronic obstruc tive pulmona ry disease , unspeci fied
with Provide r Comment s: COPD (SCT [id number] 5) POSTOP 26466-0.40 Diagnos SALEEM,H 04/05 04/05 [place] FOLLOW-UP 5.72513508 is: EATHER L /2021 [place] JENNIFER VISIT ICD-10- JCT CM [facility] Z47.81 Encount er for orthope dic afterca re followi ng surgica l amp<br/ >with Provide r Comment s: Encount er for orthope dic afterca re followi ng surgica l amp Inpatient 45413-5.40 04/05 04/05 WHITE Encounter [id number] /2021 [facility] Inpatient 17178-6.40 04/05 04/05 WHITE Encounter [id number] /2021 [facility] Inpatient 47943-6.40 04/05 04/05 WHITE Encounter [id number] /2021 [facility] Inpatient 99717-4.40 04/05 04/05 WHITE Encounter [id number] /2021 [facility] Inpatient 55073-1.40 04/05 04/05 WHITE Encounter [id number] /2021 [facility] AIRWAY 02160-5.40 Diagnos Mustapha SALAZAR 04/05 04/05 W N[place] INHALATION 5.68277430 is: EORGE /2021 RIVE R TREATMENT ICD-10- EFRAIN T CM [facility] J44.9 Chronic obstruc tive pulmona ry disease , unspeci fied
with Provide r Comment s: COPD (SCT [id number] 5) Inpatient 93778-2.40 04/05 04/05 WHITE Encounter [id number] /2021 [facility] Inpatient 98867-7.40 04/05 04/05 WHITE Encounter [id number] /2021 [facility] Inpatient 37448-4.40 04/05 04/05 WHITE Encounter [id number] /2021 [facility] Inpatient 69980-1.40 04/05 04/05 WHITE Encounter [id number] /2021 [facility] Inpatient 37336-3.40 04/05 04/05 WHITE Encounter [id number] /2021 [facility] Inpatient 36803-3.40 04/05 04/05 WHITE Encounter [id number] /2021 [facility] Inpatient 65344-5.40 04/05 04/05 WHITE Encounter [id number] /2021 [facility] Inpatient 29348-0.40 04/05 04/05 WHITE Encounter [id number] /2021 [facility] EVALUATE 46005-8.40 Diagnos GARCIA,NA 04/05 04/05 WHITE PT USE OF 5.31723266 is: DOMINIC J /2021 Z[place] INHALER ICD-10- T CM [facility] J44.9 Chronic obstruc tive pulmona ry disease , unspeci fied
with Provide r Comment s: COPD ([facility] [id number] 5) Inpatient 82058-1.40 04/06 04/06 WHITE Encounter [id number] /2021 [facility] Inpatient 38812-5.40 04/06 04/06 [facility].69439510 [facility] 09431-6.40 04/06 04/06 WHITE Encounter [id number] /2021 [facility] Inpatient 13945-3.40 04/06 04/06 WHITE Encounter [id number] /2021 [facility] Inpatient 42012-7.40 04/06 04/06 WHITE Encounter [id number] /2021 [facility] EVALUATE 94064-1.40 Diagnos GARCIA,NA 04/06 04/06 WHITE PT USE OF 5.92781538 is: DOMINIC J /2021 Z[place] INHALER ICD-10- T CM [facility] J44.9 Chronic obstruc tive pulmona ry disease , unspeci fied
with Provide r Comment s: COPD (SCT [id number] 5) Inpatient 80508-4.40 04/06 04/06 WHITE Encounter [id number] /2021 [facility] Inpatient 13431-1.40 04/06 04/06 WHITE Encounter [id number] /2021 [facility] POSTOP 82689-0.40 Diagnos WHITESEL,H 04/06 04/06 [place] FOLLOW-UP 5.79556298 is: EATHER L /2021 [place] JENNIFER VISIT ICD-10- [facility] CM [facility] Z47.81 Encount er for orthope dic afterca re followi ng surgica l amp<br/ >with Provide r Comment s: Encount er for orthope dic afterca re followi ng surgica l amp AIRWAY 75360-9.40 Diagnos CHRISTOFFE 04/06 04/06 W N[place]A INHALATION 5.12710206 is: RS,TERRY R /2021 [place] TREATMENT ICD-10- T CM [facility] R06.02 Shortne ss of breath< br/>wit h Provide r Comment s: Shortne ss of breath (SCT [id number] 07) Inpatient 91603-9.40 04/06 04/06 WHITE Encounter [id number] /2021 [facility] Inpatient 51397-8.40 04/06 04/06 WHITE Encounter [id number] /2021 [facility] Inpatient 04348-2.40 04/06 04/06 WHITE Encounter [id number] /2021 [facility] Inpatient 89052-4.40 04/06 04/06 WHITE Encounter [id number] /2021 [facility] Inpatient 27570-2.40 04/06 04/06 WHITE Encounter [id number] /2021 [facility] Inpatient 00570-5.40 04/07 04/07 WHITE Encounter [id number] /2021 [facility] Inpatient 86734-5.40 04/07 04/07 WHITE Encounter [id number] /2021 [facility] Inpatient 56764-1.40 04/07 04/07 WHITE Encounter [id number] /2021 [facility] Inpatient 44881-3.40 04/07 04/07 WHITE Encounter [id number] /2021 [facility] Inpatient 50761-1.40 04/07 04/07 WHITE Encounter [id number] /2021 [facility] Inpatient 83694-5.40 04/07 04/07 WHITE Encounter [id number] /2021 [facility] Inpatient 80526-8.40 04/07 04/07 WHITE Encounter [id number] /2021 [facility] Inpatient 30110-8.40 04/07 04/07 WHITE Encounter [id number] /2021 [facility] Inpatient 57210-6.40 04/07 04/07 WHITE Encounter [id number] /2021 [facility] EVALUATE 02002-7.40 Diagnos GARCIA,NA 04/07 04/07 WHITE PT USE OF 5.02875520 is: DOMINIC Gary /2021 [place] INHALER ICD-10- [facility] R06.02 Shortne ss of breath< br/>wit h Provide r Comment s: Shortne ss of breath (SCT [id number] 07) POSTOP 28133-5.40 Diagnos WHITESEL,H 04/07 04/07 [place] FOLLOW-UP 5.53504177 is: EAT L /2021 [place] JENNIFER VISIT ICD-10- [facility] Z47.81 Encount er for orthope dic afterca re followi ng surgica l amp<br/ >with Provide r Comment s: Encount er for orthope dic afterca re followi ng surgica l amp Inpatient 36396-8.40 04/07 04/07 WHITE Encounter [id number] /2021 [facility] Inpatient 02014-0.40 04/07 04/07 WHITE Encounter [id number] /2021 [facility] THERAPEUTI 21598-0.40 Diagnos CALLES,ALISSA 04/07 04/07 WHITE C 5.91931447 is: AN B /2021 [facility] ACTIVITIES ICD-10- [facility] L03.115 Celluli tis of right lower limb
with Provide r Comment s: Celluli tis of right lower limb (SCT [id number]) AIRWAY 20438-9.40 Diagnos IADALEETTA,G 04/07 04/08 [place] INHALATION 5.77800622 is: EORGE /2021 RIVE R TREATMENT ICD-10- EFRAIN T CM [facility] J44.9 Chronic obstruc tive pulmona ry disease , unspeci fied
with Provide r Comment s: COPD (SCT [id number] 5) POSTOP 29155-4.40 Diagnos WHITESEL,H 04/07 04/07 [place] FOLLOW-UP 5.25476451 is: KIMBERLY L /2021 [place] JENNIFER VISIT ICD-10- [facility] Z47.81 Encount er for orthope dic afterca re followi ng surgica l amp<br/ >with Provide r Comment s: Encount er for orthope dic afterca re followi ng surgica l amp Inpatient 76803-4.40 04/07 04/07 WHITE Encounter [id number] /2021 [facility] 58382-2.40 Diagnos PENN,CARRIE 04/07 04/07 [place] N[place]A INHALATION 5.34660636 is: ERT KRISTIAN /2021 [facility] TREATMENT ICD-10- [facility] J44.9 Chronic obstruc tive pulmona ry disease , unspeci fied
with Provide r Comment s: COPD (SCT [id number] 5) POSTOP 20263-9.40 Diagnos WHITESEL,H 04/07 04/07 [place] FOLLOW-UP 5.51911143 is: EATHER L /2021 [place] JENNIFER VISIT ICD-10- [facility] Z47.81 Encount er for orthope dic afterca re followi ng surgica l amp<br/ >with Provide r Comment s: Encount er for Orthope dic Afterca re Followi ng Surgica l Amputat ion Inpatient 02576-7.40 04/07 04/07 WHITE Encounter [id number] /2021 [facility] Inpatient 23539-6.40 04/07 04/07 WHITE Encounter [id number] /2021 [facility] [facility] Inpatient 09976-9.40 04/07 04/07 WHITE Encounter [id number] /2021 [facility] [facility] Inpatient 55827-0.40 04/07 04/07 [id number] [facility] 33486-0.40 04/08 04/08 WHITE Encounter [id number] /2021 [facility] [facility] Inpatient 54565-1.40 04/08 04/08 WHITE Encounter [id number] /2021 [facility] [facility] Inpatient 18669-2.40 04/08 04/08 WHITE Encounter [id number] /2021 [facility] [facility] Inpatient 34803-3.40 04/08 04/08 WHITE Encounter [id number] /2021 [facility] [facility] Inpatient 62581-5.40 04/08 04/08 WHITE Encounter [id number] /2021 [facility] EVALUATE 55895-6.40 Diagnos GARCIA,NA 04/08 04/08 WHITE PT USE OF 5.38904677 is: DOMINIC J /2021 [place] INHALER ICD-10- T CM VAMROC J44.9 Chronic obstruc tive pulmona ry disease , unspeci fied
with Provide r Comment s: COPD (SCT [id number] 5) Inpatient 47917-6.40 04/08 04/08 WHITE Encounter [id number] /2021 [facility] [facility] POSTOP 12320-9.40 Diagnos WHITESEL,H 04/08 04/08 [place] FOLLOW-UP [id number] is: KIMBERLY L /2021 [place] JENNIFER VISIT ICD-10- T CM VAMROC Z47.81 Encount er for orthope dic afterca re followi ng surgica l amp<br/ >with Provide r Comment s: Encount er for orthope dic afterca re followi ng surgica l amp Inpatient 96806-8.40 04/08 04/08 WHITE Encounter [id number] /2021 [facility] Inpatient 62302-1.40 04/08 04/08 [facility]ITE [facility] [id number] [facility] AIRWAY 98957-7.40 Diagnos IADALEETTA,G 04/08 04/09 [place] INHALATION 5.26039301 is: EORGE /2021 RIVE R TREATMENT ICD-10- EFRAIN T CM VAMROC J44.9 Chronic obstruc tive pulmona ry disease , unspeci fied
with Provide r Comment s: COPD (SCT [id number] 5) AIRWAY 86549-7.40 Diagnos PENN,CARRIE 04/08 04/08 [place] INHALATION 5.36107658 is: ERT KRISTIAN /2021 R[place] TREATMENT ICD-10- T CM VAMROC J44.9 Chronic obstruc tive pulmona ry disease , unspeci fied
with Provide r Comment s: COPD (SCT [id number] 5) Inpatient 69048-0.40 04/08 04/08 WHITE Encounter [id number] /2021 [facility] Inpatient 98178-9.40 04/08 04/08 WHITE Encounter [id number] /2021 [facility] Inpatient 00863-5.40 04/09 04/09 WHITE Encounter [id number] /2021 [facility] Inpatient 16485-0.40 04/09 04/09 WHITE Encounter [id number] /2021 [facility] Inpatient 03346-2.40 04/09 04/09 WHITE Encounter [id number] /2021 [facility] Inpatient 45138-9.40 04/09 04/09 WHITE Encounter [id number] /2021 [facility] Inpatient 66745-1.40 04/09 04/09 WHITE Encounter [id number] /2021 [facility] Inpatient 62418-7.40 04/09 04/09 WHITE Encounter [id number] /2021 [facility] Inpatient 46561-3.40 04/09 04/09 WHITE Encounter [id number] /2021 [facility] AIRWAY 56889-9.40 Diagnos LIZZ HILTON 04/09 04/09 [place] INHALATION [id number] is: TOMMY /2021 RIVE R TREATMENT ICD-10- JCT CM VAMROC J44.9 Chronic obstruc tive pulmona ry disease , unspeci fied
with Provide r Comment s: COPD (SCT [id number] 5) POSTOP 78197-3.40 Diagnos Ephraim MONGE 04/09 04/09 [place] FOLLOW-UP [id number] is: EATHER L /2021 [place] JENNIFER VISIT ICD-10- [place] CM [facility]AM[facility] Z47.81 Encount er for orthope dic afterca re followi ng surgica l amp<br/ >with Provide r Comment s: Encount er for orthope dic afterca re followi ng surgica l amp Inpatient 86949-7.40 04/09 04/09 WHITE Encounter [id number] /2021 [place] [facility] Inpatient 79044-6.40 04/09 04/09 WHITE Encounter [id number] /2021 [place] [facility] WHEELCHAIR 91067-7.40 Diagnos ALISSA CALLES 04/09 04/09 WHITE MNGMENT [id number] is: AN B /2021 [place] TRAINING ICD-10- [place] CM [facility] Z89.421 Acquire d absence of other right toe(s)< br/>wit h Provide r Comment s: Acquire d Absence of other right Toe(s) Inpatient 97295-7.40 04/09 04/09 WHITE Encounter [id number] /2021 [place] [facility] Inpatient 39425-8.40 04/09 04/09 WHITE Encounter [id number] /2021 [place] [facility] CASE 94101-0.40 Diagnos BEVERLY,J 04/09 04/09 WH ITE MANAGEMENT [id number] is: PENG L /2021 [place] ICD-10- J[place] CM [facility] Z65.9 Problem related to unspeci fied psychos ocial circums tances< br/>wit h Provide r Comment s: Psychos ocial Circums tance Problem s,Unspe c Inpatient 30497-5.40 04/09 04/09 WHITE Encounter [id number] /2021 [place] [facility] ADM 97098-4.40 ROXANNE 04/09 04/09 WHIT E SARSCOV2 [id number] ,FLAVIO T /2021 [place] JENNIFER 50MCG/0.25 JCT [facility]ST [facility] Inpatient 86352-5.40 04/09 04/09 WHITE Encounter [id number] /2021 [place] [facility] Inpatient 81893-9.40 04/09 04/09 WHITE Encounter [id number] /2021 [place] [facility] AIRWAY 51216-8.40 Diagnos PENN,CARRIE 04/09 04/09 [place] INHALATION [id number] is: ERT KRISTIAN /2021 [place] TREATMENT ICD-10- J[place] CM [facility] J44.9 Chronic obstruc tive pulmona ry disease , unspeci fied
with Provide r Comment s: COPD (SCT [id number] 5) Inpatient 68134-2.40 04/09 04/09 WHITE Encounter [id number] /2021 [place] [facility] Inpatient 60865-6.40 04/09 04/09 WHITE Encounter [id number] /2021 [place] [facility] Inpatient 31058-2.40 04/09 04/09 WHITE Encounter [id number] /2021 [place] [facility] Inpatient 15601-1.40 04/10 04/10 WHITE Encounter [id number] /2021 [place] [facility] Inpatient 98703-8.40 04/10 04/10 WHITE Encounter [id number] /2021 [place] [facility] Inpatient 99177-5.40 04/10 04/10 WHITE Encounter [id number] /2021 [place] [facility] Inpatient 92922-7.40 04/10 04/10 WHITE Encounter [id number] /2021 [facility] AIRWAY 41730-4.40 Diagnos LIDALIZZ 04/10 04/10 [place] INHALATION [id number] is: TOMMY /2021 R[place] R TREATMENT ICD-10- T CM V[facility]OC J44.9 Chronic obstruc tive pulmona ry disease , unspeci fied
with Provide r Comment s: COPD (SCT [id number] 5) POSTOP 40490-6.40 Diagnos RIAZEphraim ORTIZ 04/10 04/11 [place] FOLLOW-UP [id number] is: EATHER L /2021 [place] J[place]ER VISIT ICD-10- T CM [facility] Z47.81 Encount er for orthope dic afterca re followi ng surgica l amp<br/ >with Provide r Comment s: Encount er for Orthope dic Afterca re Followi ng Surgica l Amputat ion Inpatient 32068-1.40 04/10 04/10 WHITE Encounter [id number] /20[place] [address]-4.40 Diagnos Joey CARLIN 04/10 04/10 WHITE PHARM EST [id number] is: MACI Cook /2021 ZAK ER 15 MIN ICD-10- J[place] CM [facility] Z51.81 Encount er for therape utic drug level monitor ing<br/ >with Provide r Comment s: Encount er for Therape utic Drug Level Monitor ing Inpatient 78708-3.40 04/10 04/10 WHITE Encounter [id number] /2021 [place] [facility] POSTOP 89319-0.40 Diagnos BELA,AND 04/10 04/21 [place] FOLLOW-UP [id number] is: REW J /2021 [place] VISIT ICD-10- [place] CM [facility] Z47.81 Encount er for orthope dic afterca re followi ng surgica l amp<br/ >with Provide r Comment s: Encount er for orthope dic afterca re followi ng surgica l amp Inpatient 01061-4.40 04/10 04/10 WHITE Encounter [id number] /2021 [place] [facility] Outpatient 68057-2.40 UZBEK,MAR 04/15 WHITE Encounter [id number] [place] /2021 [place] [facility] HC PRO 43561-8.40 Diagnos SOTODereje 04/15 S T. 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
w ith Provide r Comment s: Non-Pre ssure Chronic Ulcer of other part of right Foot with unspeci fied Severit y OXYGEN 17162-2. Diagnos ALEJA,F 04/21 [place] CONCENTRAT [id number] is: RANK S ZAK ER OR ICD-10- [place] CM [facility] G47.30 Sleep apnea, unspeci fied
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<b r/>with Provide r Comment s: Foot ulcer due to type 2 diabete s mellitu s (SCT [id number]) Outpatient Diagnos WHITES,H 04/22 WHITE Encounter [id number] is: EATHER RI JENNIFER ICD-10- J[place] CM [facility] Z71.0 Prsn encntr hlth serv to consult on behalf of another person< br/>wit h Provide r Comment s: Person [facility] s to Consult on Behalf of another Person Outpatient Diagnos [facility],H 04/22 WHITE Encounter [id number] is: EATHER RI JENNIFER ICD-10- J[place] CM V[facility] Z71.0 Prsn encntr hlth serv to consult on behalf of another person< br/>wit h Provide r Comment s: Person [facility] s to Consult on Behalf of another Person Outpatient 04/23 WHIT E Encounter [id number] /2022 [place] [facility] Outpatient 04/29 WHIT E Encounter [id number] /2022 [place] [facility] OFFICE O/P Diagnos WHITES,H 05/05 WHITE EST MOD [id number] is: EATHER RIVE R 30-39 MIN ICD-10- [place] CM [facility] M62.81 Muscle weaknes s (genera lized)< br/>wit h Provide r Comment s: Bobby s - general (SCT [id number] 8) Outpatient 19994-9.40 05/06 WHIT E Encounter [id number] [facility] [facility] OFFICE O/P 09564-9 Diagnos WHITESDIANA,H 05/20 WHITE EST HI [id number] is: KIMBERLY L /2021 R[place] 40-54 MIN ICD-10- [place] CM [facility] L89.519 Pressur e ulcer of right ankle, unspeci fied stage<b r/>with Provide r Comment s: Pressur e Ulcer of right Ankle, unspeci fied Stage Outpatient 33316-1.40 05/21 WHIT E Encounter [id number] /2022 [facility] OXYGEN 58000-2 Diagnos ALEJA,F 05/24 [place] CONCENTRAT [id number] is: RANK S /2021 [place] ICD-10- J[place] CM [facility] G47.30 Sleep apnea, unspeci fied
with Provide r Comment s: Sleep Apnea, unspeci fied Outpatient 40834-4.40 05/26 WHIT E Encounter [id number] /2021 [place] [facility] Outpatient 74663-2.40 05/26 WHIT E Encounter [id number] /2021 [place] [facility] Outpatient 00732-8.40 05/30 WHIT E Encounter [id number] /2021 [place] [facility] Outpatient 45444-7.40 Diagnos Jazmin SAUCEDA 06/02 WHITE Encounter [id number] is: REGINALDO [place] ICD-10- KATI [place] CM [facility] I50.41 Acute combine d systoli c and diastol ic (conges tive) hrt fail
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 Diagnos Jazmin SAUCEDA 06/03 WHITE Encounter [id number] is: REGINALDO [place] ICD-10- KATI J[place] CM V[facility] I50.41 Acute combine d systoli c and diastol ic (conges tive) hrt fail
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 (SCT [id number] 6) Outpatient 67815-4.40 08 WHIT E Encounter [id number] /20[place] [facility] Outpatient 16868-6.40 06/10 WHIT E Encounter [id number] /2021 [place] [facility] Outpatient 96282-7.40 06/11 WHIT E Encounter [id number] [place] [facility] Outpatient 32622-9.40 06/11 WHIT E Encounter [id number] /2021 [place] [facility] Outpatient 57106-5.40 06/13 WHIT E Encounter [id number] [place] [facility] Procedures Combined list of: 1) Procedures from Department of Veterans Affairs facilities going back up to the last 18 months, not all VA non-surgical procedures are included; 2) All procedures from the Department of Defense facilities. Procedure Procedure Type Code Date Perfomer Comments Sourc e RIGHT BIG TOE TREAT FOOT BONE 04780 SALEEMMURIEL RT-RIG HT SIDE [place] AMPUTATION LESION 2 HER L [place] V[facility] C PARTIAL PARTIAL 77624 WHITESEL,HEAT [place] AMPUTATION RIGHT AMPUTATION OF 2 HER L [place] [facility] HALLUX AT LEVEL TOE OF [place] Social History Combined list of available smoking, tobacco, and other social history [facility]. Social History Response Date Comment Source Type Tobacco smoking LIFETIME 07/08/2021 [place] status NHIS NON-TOBACCO USER [facility] History of tobacco VA-TOBACCO FORMER 09/21/2020 [facility] use USER History of tobacco LIFETIME 03/21/2020 [place] use NON-TOBACCO USER [facility] History of tobacco LIFETIME 12/22/2019 [place] use NON-TOBACCO USER [facility] History of tobacco LIFETIME 12/17/2019 [place] use NON-TOBACCO USER [facility] History of tobacco LIFETIME 09/19/2019 [place] use NON-TOBACCO USER [facility] History of tobacco VA-TOBACCO QUIT 15 04/19/2019 [facility] use YRS OR MORE History of tobacco QUIT TOBACCO USE > 12/27/2018 [place] use 7 YEARS AGO [facility] History of tobacco QUIT TOBACCO USE > 10/28/2018 [facility] [place] use 7 YEARS AGO [facility] History of tobacco QUIT TOBACCO USE > 10/27/2018 [facility] [place] use 7 YEARS AGO [facility] History of tobacco QUIT TOBACCO USE > 07/16/2018 [place] use 7 YEARS AGO [facility] History of tobacco QUIT TOBACCO USE > 02/16/2018 [facility] use 7 YEARS AGO History of tobacco QUIT TOBACCO USE > 02/19/2017 [facility] [place] use 7 YEARS AGO [facility] History of tobacco QUIT TOBACCO USE > 11/21/2015 quit over 25 [facility] use 7 YEARS AGO years History of tobacco QUIT TOBACCO USE > 03/19/2010 [facility] use 7 YEARS AGO History of tobacco QUIT TOBACCO USE 03/07/2008 [facility] use 1-7 YEARS AGO History of tobacco HISTORY OF SMOKING 04/04/2005 [facility] use History of tobacco HISTORY OF SMOKING 03/22/2004 [facility] use History of tobacco HISTORY OF SMOKING 04/10/2003 [facility] use History of tobacco HISTORY OF SMOKING 03/29/2002 [facility] use History of tobacco HISTORY OF SMOKING 04/06/2001 [facility] use History of tobacco CURRENT SMOKER 09/07/1997 [facility] use [facility] Plan of Care List of future care activities from Department of Veterans Affairs facilities. Additional future care activities may be listed in the Assessment and Plan section. Date/Time Care Activity Care Activity Detail Facility 06/17/2022 AMBULATORY - REHAB AMBULATORY - REHAB [facility] MEDICINE MEDICINE
--- NOTE | 2022-06-15 02:10 | NUR.NOTE ---
pt's son-in-law stops at RN desk expresses concern for Pt's wifes safety d/t vision problems and lack of sleep. This was reviewed with SALT REFINER and Pt's RN. SALT REFINER reviewed concern with and Daughter in room. Bed alarm offered but strongly refused by Pt's at this time per CHRISSY.
[2022-06-15] MEDS: Glycopyrrolate 0.2 MG/1 ML VIAL IVP ×2 (02:44→05:33)
[2022-06-15] MEDS: MORPHine 4 MG/ML SYR IV/SC ×2 (02:44→05:33)
[2022-06-15] MEDS: Normal Saline Flush 10 ML SYR IVP ×2 (06:12→09:03)
[2022-06-15] MEDS: LORazepam 20 MG/10 ML VIAL IV/SC ×2 (06:12→09:04)
--- NOTE | 2022-06-15 06:32 | NUR.NOTE ---
Nursing Note: daughter Chiquita and Gia present. spoke with this RN about pt's medications. at this time pt is not awake enough to safely swallow pills. family stated he doesn't need any of his other medications right now and that they are focused on his comfort.this RN made charge nurse aware and advised family to have a conversation with the provider about their preferences today. family will be here all day.
--- NOTE | 2022-06-15 08:46 | INITIAL_ITS ---
- If Service Date Differs Date of service: 06/15/22 Time of Service: 08:46 Care Management Initial Assess REASON FOR HOSPITALIZATION:: Diabetes and CHF PAST MEDICAL HISTORY/PAST SURGICAL HISTORY:: All Active Problems . Hypokalemia (Chronic). Thyroid mass of unclear etiology (Acute). Wound dehiscence, surgical (Acute). Pulmonary hypertension (Acute). Acute on chronic systolic CHF (congestive heart failure) (Acute). Diabetes mellitus (Chronic). History of pericarditis (Chronic). CHAPARRO (obstructive sleep apnea) (Chronic). CAD (coronary artery disease) (Chronic). Colitis (Acute). Diabetic peripheral neuropathy associated with type 2 diabetes mellitus (Chronic). Acute kidney injury (nontraumatic) (Acute). Abnormal EKG (Acute). Constipation due to pain medication (Chronic). Chronic, continuous use of opioids (Chronic). Diastolic dysfunction (Chronic). Exertional dyspnea (Chronic). Ischemic cardiomyopathy (Chronic). Myocardial infarction of inferior wall (Chronic). Medical History . Chronic respiratory failure with hypoxia PREVIOUS FUNCTIONAL STATUS/SOCIAL/FAMILY SUPPORTS:: Napoleon currently resides at the [facility] living facility in [place]. His Gia lives at their [facility]. He is retired from the [employer] dept and a . He has 4 adult children, 2 live locally. Per patient, he's been at [facility] for about a month. Napoleon requires assistance with his ADL's. He has a wheelchair and a nathalia lift. ADVANCE DIRECTIVES:: On file at [facility]. Gia Jiménez [facility] Has patient been provided with info about the portal/API?: Yes Did the patient sign up for the portal?: No INSURANCE COVERAGE / FINANCIAL ISSUES:: Medicare. BC BS. [employer] CURRENT HOME/COMMUNITY SERVICES/EQUIPMENT:: [facility]. [facility] RN,PT,OT. Nathalia lift, wheelchair,FWW. home O2 PRIMARY CARE PHYSICIAN:: Nasreen Thapa POTENTIAL DISCHARGE NEEDS:: follow up with PCP and plan of care PATIENT/FAMILY EDUCATION NEEDS:: Review of discharge instructions, limitations, activity, follow up plan, discuss Ask Me Three TRANSPORTATION:: to be determined by disposition PLAN:: Napoleon's discharge plan is uncertain at this time. He has been steadily declining and is now on comfort measure with the family declining aggressive treatment. Napoleon may discharge back to [facility] or remain at [facility] for end of life care. CM will support Napoleon and his family and assess for ongoing needs.
[2022-06-15] MEDS: MORPHine 4 MG/ML SYR IVP (09:01)
--- NOTE | 2022-06-15 11:31 | PDOC.CMPRO ---
- If Service Date Differs Date of service: 06/15/22 Time of Service: 11:31 Care Management Progress Note Napoleon at 9:15 this morning.
--- NOTE | 2022-06-15 14:40 | W.PM.DDS ---
Date of service: 06/15/22 Time of Service: 09:18 Discharge Sum: Prov Provider Primary care physician: Nasreen Thapa Admitting clinician: Marin Mcgrath Attending physician on admission: Marin Mcgrath Consults: 06/14/22 23:44 Wire Turning Machine Operator Consult [CONS] Routine Consultation Status:: Follow-up needed Clarification:: Manage/follow per spec. Reason for consult:: end stage heart failure Pronouncing clinician: Ambreen Mccullough Discharge Sum: Diag PCOD Cause of : Congestive heart failure Contributing Factors (1) Diabetes mellitus: (2) CAD (coronary artery disease): (3) Ischemic cardiomyopathy: Discharge Sum: Summary Date and Time Admission Date: 06/14/2208/20/22 23:40 Date of : 06/15/22 Time of : 09:15 Summary Details: This is a 76-year-old male with a past medical history of congestive heart failure, pulmonary hypertension, diabetes, coronary artery disease, and colitis. He presented to the [facility] emergency department with a chief complaint of increased shortness of breath and SPO2s in the 50s. He has been declining in the last few months. He has been admitted to the hospital twice this month, most recently from June 08 to . He was also here from May 26 to . He has severe heart failure along with diabetes mellitus. He had been living at a primary senior care since his last discharge a few days ago. He had been under a DNR status until about a week ago, which was changed to a full code; however, considering his recent decline, the family now thinks that DNR status is the best option for him. His son-in-law and the patient's both feel that is the best option. He was placed on observation. He was quite restless, and the nursing staff reported he was pulling at his urinary catheter during the night. Early this morning, he became unresponsive with noisy, agonal breathing. He was treated with morphine for discomfort and lorazepam for his anxiety. He appeared comfortable. His family was with him. He passed at 0915, pronounced at 0918. Discussed with Dr Zapata Additional Data Confirmation of as documented by pronouncing clinician: no pulse, no respirations, no heart sounds and pupils fixed and dilated Family: at bedside Attending/PCP notified?: Yes Attending Physician: Marin Cano Was code activated?: No Autopsy requested?: No psychometric examiner notified?: No Organ bank notified?: Yes Advance directives: Yes Hospice patient?: No
== END 2022-06-15 09:18 | disposition expired | DRG 292 ==
LOC: ER 06-15 00:37 → MS 06-15 00:45
PROVIDERS: Admitting Provider Family Medicine; Emergency Provider Student in an Organized Health Care Education/Training Program; PCP Nurse Practitioner Primary Care; Visit Provider Family Medicine
DX: I50.23 Acute on chronic systolic (congestive) heart failure (principal); N17.9 Acute kidney failure, unspecified; E87.6 Hypokalemia; E11.42 Type 2 diabetes mellitus with diabetic polyneuropathy; I27.20 Pulmonary hypertension, unspecified; G47.33 Obstructive sleep apnea (adult) (pediatric); Z66 Do not resuscitate; I25.10 Atherosclerotic heart disease of native coronary artery without angina pectoris; I25.2 Old myocardial infarction; I25.5 Ischemic cardiomyopathy; Z87.891 Personal history of nicotine dependence; K52.9 Noninfective gastroenteritis and colitis, unspecified; K59.03 Drug induced constipation; T40.2X5A Adverse effect of other opioids, initial encounter
CPT/HCPCS: 36415; 80053; 82805; 87077; 87635; 93005; 93308; 96374; 96376; 99285; 81003; 81015; 82140; 83880; 84443; 84484; 85025; 85610; 85730; 87086; 87186; 93010; 99222; 99238; J1940; J1941; J2270; J3490